=== PATIENT | female | born 1950 | race Caucasian/White ===

== ENCOUNTER → 2017-08-28 | Outpatient (CLI) | payer MEDICARE, MEDICAID ==
--- NOTE | 2017-08-28 17:57 | Diagnostic Imaging Report ---
PROCEDURE: Lung cancer screening CT chest without contrast. TECHNIQUE: Multiple contiguous axial images were obtained through the chest without the use of intravenous contrast. This is performed with a low-dose protocol. INDICATION: Currently asymptomatic patient with 60 pack years history of smoking Comparison: 08/22/2016 Findings: Again seen, there is scarring in the right middle lobe. There is minimal groundglass opacity in the right lung apex which is probably related to atelectasis or pneumonitis. A central somewhat nodular density in the middle of this area is measuring 9 mm. There is also mild atelectasis suggested in the lung bases bilaterally. There is a new nodule measuring 6 mm seen in the right middle lobe, axial image 36. The mediastinum demonstrates no mass or significantly enlarged nodes. The heart size is borderline. No axillary lymphadenopathy is seen. IMPRESSION: There are new groundglass opacities in the right lung apex with central 9 mm irregular nodule and a new right middle lobe nodule measuring 6 mm. These are favored to be benign. Followup study in six months is recommended to reevaluate. Lung Rads Category : 3. Likely benign. Recommendations: 6 months followup low-dose CT scan. Dictated by: Dictated on workstation # [id number]
== END ==
LOC: RAD 11:13
PROVIDERS: ATTEND Nurse Practitioner Family
DX: R91.8 Other nonspecific abnormal finding of lung field (principal); J44.9 Chronic obstructive pulmonary disease, unspecified; F17.210 Nicotine dependence, cigarettes, uncomplicated

== ENCOUNTER → 2017-09-12 | Outpatient (CLI) | payer MEDICARE, MEDICAID | LOC: CARD 12:41 | PROVIDERS: ATTEND Internal Medicine Cardiovascular Disease | DX: R00.2 Palpitations (principal); I10 Essential (primary) hypertension; R94.31 Abnormal electrocardiogram [ECG] [EKG] | CPT/HCPCS: 93225; 93226 ==

== ENCOUNTER → 2017-09-12 | Outpatient (CLI) | payer MEDICARE, MEDICAID | LOC: CARD 12:37 | PROVIDERS: ATTEND Internal Medicine Cardiovascular Disease | DX: R00.2 Palpitations (principal); I10 Essential (primary) hypertension; R94.31 Abnormal electrocardiogram [ECG] [EKG] | CPT/HCPCS: 93306 ==

== ENCOUNTER → 2018-06-28 | Outpatient (CLI) | payer MEDICARE, MEDICAID ==
--- NOTE | 2018-06-28 10:34 | Diagnostic Imaging Report ---
PROCEDURE: CT chest without contrast. TECHNIQUE: Multiple contiguous axial images were obtained through the chest without the use of intravenous contrast. INDICATION: Pulmonary nodules. Comparison is made to study of 01/30/2018. Unenhanced images reveal atherosclerotic calcification at the root of the aorta. Subcentimeter mediastinal lymph nodes have not significantly changed. There is also no significant change within the areas of chronic atelectasis and/or scarring involving the medial segment of the right middle lobe and the lingula. No defined mass or new infiltrate identified. There is no significant pleural or pericardial fluid. Gallbladder surgically absent. IMPRESSION: Stable chest CT with chronic atelectasis or scarring in the right middle lobe and lingula, showing no significant change. Dictated by: Dictated on workstation # [id number]
== END ==
LOC: RAD 09:49
PROVIDERS: ATTEND Nurse Practitioner Family
DX: J98.11 Atelectasis (principal); R91.8 Other nonspecific abnormal finding of lung field; J44.9 Chronic obstructive pulmonary disease, unspecified; Z72.0 Tobacco use
CPT/HCPCS: 71250

== ENCOUNTER 2018-11-18 17:44 | Inpatient (IN) | payer MEDICARE ==
[2018-11-18] VITALS (10 sets, daily range): BP systolic 155–187; BP diastolic 96–113
[~2018-11-18] VITALS: Ht 162.6 cm; Wt 116.1 kg
[2018-11-18] MEDS ORDERED: PROPOFOL DRIP (ICU) 100 ML IV SCH (19:45)
--- NOTE | 2018-11-18 19:55 | Progress Note ---
Standard Progress Note Progress Notes/Assess & Plan Date Seen by a Provider: Nov 18, 2018 Time Seen by a Provider: 19:44 Progress/Assessment & Plan Transfer acceptance note: (Patient not seen at this time.) Accepted patient in transfer from [facility] for acute respiratory failure. Presented to OSH for shortness of breath. Was to see her PCP over the last three days but did not keep appointment. Arrived to the ER in extremis with hypoxia on non rebreather. Trial of BiPAP was unsuccessful and hypercapnia worsened with BiPAP. CTA was attempted but she was unable to obtain this due to her girth. She was quickly intubated at OSH following CT scan. She received Rocephin and Azithromycin for abx coverage. She did not meet sepsis criteria. She was also given Bumex and a 1x therapeutic dose of Lovenox. She was transferred here for higher level care and ventilator management for acute hypoxic/hypercapnic respiratory failure. REBECCA FERNANDEZ MD Nov 18, 2018 19:55
[2018-11-18] MEDS ORDERED: NS IV 1000 ML 1,000 ML ONE (20:04)
--- OUTSIDE RECORDS SUMMARY | 2018-11-18 20:08 | XMS REPORT ---
Author Author BIANCA LIM Organization [facility] Address [address] [place] [address] Care Team Providers Care Religious Education Coordinator Name Role Phone BIANCA LIM Unavailable PROBLEMS Type Condition ICD9-CM Code KTE56-MK Code Onset Dates Condition Status SNOMED Code Problem Anxiety disorder, unspecified type F41.9 Active 197240382 Problem Bipolar I disorder, current or most recent episode depressed, in partial remission F31.75 Active 273506495 Problem Nicotine dependence, unspecified, uncomplicated F17.200 Active 82597216 Problem Anxiety disorder, unspecified F41.9 Active 440965580 Problem Borderline personality disorder F60.3 Active 02701650 Problem Bipolar II disorder in full remission F31.81 Active 83103518 ALLERGIES No Information ENCOUNTERS Encounter Location Date Diagnosis [facility] [id number] [place] [address] 79958- 3873 Jun, Bipolar I disorder, current or most recent episode depressed , in partial remission F31.75 and Anxiety disorder, unspecified type F41.9 [facility] [address], [place] [address] May, Bipolar I disorder, current or most recent episode depressed , in partial remission F31.75 ; Anxiety disorder, unspecified type F41.9 and Borderline personality disorder F60.3 [facility] [address], [place] [address] May, [facility] [id number] [place] [address] 59470- 2896 13 Apr, 2018 Bipolar I disorder, current or most recent episode depressed , in partial remission F31.75 ; Anxiety disorder, unspecified type F41.9 and Borderline personality disorder F60.3 [facility] [id number] [place] [address] 36051- 4354 Dec, Anxiety disorder, unspecified F41.9 ; Borderline personality disorder F60.3 and Bipolar II disorder in full remission F31.81 [facility] [id number] [place] [address] 48631- 7381 Nov, Bipolar I disorder, current or most recent episode depressed , in partial remission F31.75 ; Anxiety disorder, unspecified type F41.9 and Borderline personality disorder F60.3 [facility] [id number] [place] [address] 33603- 3596 Nov, Bipolar I disorder, current or most recent episode depressed , in partial remission F31.75 ; Anxiety disorder, unspecified type F41.9 and Borderline personality disorder F60.3 [facility] [id number] [place] [address] 04474- 8555 Nov, Anxiety disorder, unspecified F41.9 [facility] [id number] [place] [address] 76180- 8416 Nov, Bipolar I disorder, current or most recent episode depressed , in partial remission F31.75 ; Anxiety disorder, unspecified type F41.9 and Borderline personality disorder F60.3 [facility] [address] [place] [address] Nov, Bipolar II disorder in full remission F31.81 [facility] [id number] [place] [address] 86826- 6735 Oct, Anxiety disorder, unspecified F41.9 [facility] [id number] [place] [address] 71713- 7078 Sep, Anxiety disorder, unspecified F41.9 [facility] [id number] [place] [address] 33922- 8778 Sep, [facility] [id number] [place] [address] 03329- 9279 Aug, [facility] [id number] [place] [address] 56248- 0779 Aug, Anxiety disorder, unspecified F41.9 [facility] [address], [place] [address] 7853 Aug, [facility] [id number] [place] [address] 11738- 6248 Jul, Anxiety disorder, unspecified F41.9 ; Borderline personality disorder F60.3 and Bipolar II disorder in full remission F31.81 [facility] [id number] [place] [address] 64007- 8340 Jul, Borderline personality disorder F60.3 and Anxiety disorder, unspecified F41.9 [facility] [id number] [place] [address] 71637- 0123 Jul, [facility] [address] [place] [address] 33608- 5643 Jun, Bipolar I disorder, current or most recent episode depressed , in partial remission F31.75 ; Anxiety disorder, unspecified type F41.9 and Borderline personality disorder F60.3 [facility] [address], [place] [address] 7074 Jun, Anxiety disorder, unspecified F41.9 [facility] [address] [place] [address] 51809- 8528 May, Bipolar I disorder, current or most recent episode depressed , in partial remission F31.75 ; Anxiety disorder, unspecified type F41.9 and Borderline personality disorder F60.3 [facility] [address], [place] [address] 5004 May, [facility] [address], [place] [address] 9106 May, Anxiety disorder, unspecified F41.9 ; Borderline personality disorder F60.3 and Bipolar II disorder in full remission F31.81 [facility] [address], [place] [address] 2266 Apr, Anxiety disorder, unspecified F41.9 [facility] [address], [place] [address] 8473 Apr, Anxiety disorder, unspecified F41.9 [facility] [id number] [place] [address] 23494- 9726 Mar, Anxiety disorder, unspecified F41.9 ; Borderline personality disorder F60.3 and Bipolar II disorder in full remission F31.81 [facility] [id number] [place] [address] 68578- 4860 Dec, Anxiety disorder, unspecified F41.9 [facility] [address] [place] [address] 10816- 8749 Nov, Anxiety disorder, unspecified F41.9 [facility] [id number] [place] [address] 87111- 0527 Nov, Anxiety disorder, unspecified F41.9 ; Nicotine dependence, unspecified, uncomplicated F17.200 ; Borderline personality disorder F60.3 and Bipolar II disorder in full remission F31.81 [place] [address] [place] [address] 79967- 6538 Nov, [facility] [id number] [place] [address] 20296- 7869 Oct, Anxiety disorder, unspecified F41.9 [facility] [address] [place] [address] 65781- 2898 Jul, [facility] [id number] [place] [address] 93971- 6050 Jul, Anxiety disorder, unspecified F41.9 ; Nicotine dependence, unspecified, uncomplicated F17.200 ; Borderline personality disorder F60.3 and Bipolar II disorder in full remission F31.81 [facility] [address], [place] [address] 2899 Jun, [place] [address] [place] [address]- 9679 Jun, Anxiety disorder, unspecified F41.9 ; Nicotine dependence, unspecified, uncomplicated F17.200 ; Borderline personality disorder F60.3 and Bipolar II disorder in full remission F31.81 [facility] [id number] [place] [address] 50386- 2201 May, Bipolar 2 disorder F31.81 ; Anxiety disorder, unspecified F41.9 and Nicotine dependence, unspecified, uncomplicated F17.200 [place] [id number] [place] [address] 77524- 5986 Apr, [facility] [id number] [place] [address] 37120- 5709 Apr, Bipolar 2 disorder F31.81 ; Anxiety disorder, unspecified F41.9 and Nicotine dependence, unspecified, uncomplicated F17.200 [facility] [id number] [place] [address] 78295- 2717 Apr, Bipolar 2 disorder F31.81 ; Anxiety disorder, unspecified F41.9 and Nicotine dependence, unspecified, uncomplicated F17.200 [place] [id number] [place] [address] 39147- 5479 Mar, [place] [id number] [place] [address] 94103- 8117 January, [facility] [id number] [place] [address] 58341- 0091 Dec, Bipolar II disorder F31.81 [facility] [id number] [place] [address] 21663- 1151 Dec, [place] [place] [address] [place] [address] 27670- 1458 Nov, Bipolar 2 disorder F31.81 and Anxiety disorder, unspecified F41.9 [facility] [id number] [place] [address] 13259- 1027 Nov, Bipolar 2 disorder F31.81 and Anxiety disorder, unspecified F41.9 [place] [id number] [place] [address] 57661- 9026 Nov, [facility] [address], [place] [address]- 2424 Nov, [facility] [address], [place] [address]- 0956 Nov, Bipolar 2 disorder F31.81 and Anxiety disorder, unspecified F41.9 [facility] [address], [place] [address]- 7578 Nov, Bipolar 2 disorder F31.81 [facility] [address], [place] [address]- 5306 Nov, [facility] [address] [place] [address] 66934- 5666 Nov, [facility] [address], [place] [address]- 3555 Oct, [facility] [address], [place] [address]- 7135 Oct, [facility] [address] [place] [address] 56121- 7489 Oct, [facility] [address], [place] [address]- 9509 Oct, Bipolar 2 disorder F31.81 [facility] [address] [address]- 4152 Sep, [facility] [address], [place] [address]- 2541 Sep, [facility] [address] 7515 Jul, Bipolar 2 disorder F31.81 [facility] [address], [place] [address]- 4696 Jun, [facility] [address] 6309 Jun, Bipolar 2 disorder 296.89 [facility] [id number] [address]- 7516 Jun, [facility] [address], [place] [address]- 3116 May, [facility] [address], [place] [address]- 7247 Apr, Bipolar 2 disorder 296.89 [facility] [address] [place] [address] 93838- 3941 Apr, Bipolar 2 disorder 296.89 and Tobacco use disorder 305.1 [facility] [address] [place] [address] 59520- 9088 Mar, Bipolar II disorder 296.89 and Nicotine dependence 305.1 [facility] [address], [place] [address]- 1874 January, [facility] [address] [place] [address]- 7491 Dec, [facility] [address], [place] [address]- 8057 Dec, [facility] [address] [place] [address]- 8019 Nov, [facility] [address] [place] [address]- 1229 Nov, [facility] [address], [place] [address]- 6928 Oct, [facility] [address], [place] [address]- 4449 Oct, [facility] [address], [place] [address]- 0280 Sep, [facility] [address], [place] [address]- 0346 Sep, [facility] [address] [place] [address]- 7397 Sep, [facility] [place] [facility] [address] [id number] [place] [address]- 1143 Sep, [facility] [place] [facility] [address] [id number] [place] 6813 18 Sep, 2014 [facility] [place] [facility] [address] [id number] [place] [address]- 6155 18 Sep, 2014 [facility] [place] [facility] [address] [id number] [place] [address]- 1034 17 Sep, 2014 [facility] [place] [facility] [address] [id number] [place] [address]- 3541 Sep, [facility] [place] [facility] [address] [id number] [place] [address]- 4658 Sep, [facility] [place] [facility] [address] [id number] [place] [address]- 2829 Aug, [facility] [place] [facility] [address] [id number] [place] [address]- 3514 Aug, [facility] [place] [facility] [address] [id number] [place] [address]- 5639 Aug, [facility] [place] [facility] [address] [id number] [place] [address]- 6710 Aug, [facility] [place] [facility] [address] [id number] [place] [address]- 5769 24 Jul, 2014 [facility] [place] [facility] [address] [id number] [place] [address]- 2769 24 Jul, 2014 [facility] [place] [facility] [address] [id number] [place] [address]- 7138 16 Jun, 2014 [facility] [place] [facility] [address] [id number] [place] [address]- 4591 16 Jun, 2014 [facility] [place] [facility] [address] [id number] [place] 5822 Jun, [facility] [place] [facility] [address] [id number] [place] [address]- 3083 Jun, [facility] [place] [facility] [address] [id number] [place] [address]- 1135 Jun, [facility] [place] [facility] [address] [id number] [place] [address]- 9845 May, [facility] [place] [facility] [address] [id number] [place] [address]- 6841 May, [facility] [place] [facility] [address] [id number] [place] [address]- 2118 Apr, [facility] [place] [facility] [address] [id number] [place] [address]- 6787 Apr, [facility] [place] [facility] [address] [id number] [place] [address]- 4910 Mar, [facility] [place] [facility] [address] [id number] [place] [address]- 9394 Mar, [facility] [place] [facility] [address] [id number] [place] [address]- 1474 January, [facility] [place] [facility] [address] [id number] [place] [address]- 5571 January, [facility] [place] [facility] [address] [id number] [place] [address]- 0524 Dec, [facility] [place] [facility] [address] [id number] [place] [address]- 0449 Dec, [facility] [place] [facility] [address] [id number] [place] [address]- 8795 Dec, [facility] [place] [facility] [address] [id number] [place] [address]- 4698 Dec, [facility] [place] [facility] [address] [id number] [place] [address]- 1245 Dec, [facility] [place] [facility] [address] [id number], [place] [address]- 1340 Dec, [facility] [place] [facility] [address] [id number] [place] [address]- 0316 Nov, [facility] [place] [facility] [address] [id number] [place] [address]- 2138 Nov, [facility] [place] [facility] [address] [facility] [id number] [place] [address]- 7999 Nov, [facility] [place] [facility] [address] [id number] [place] [address]- 4334 Nov, [facility] [place] [facility] [address] [id number] [place] [address]- 9052 Nov, [facility] [place] [facility] [address] [facility] [id number] [place] [address]- 6438 Nov, [facility] [place] [facility] [address] [facility] [id number] [place] [address]- 2824 Nov, [facility] [place] [facility] [address] [facility] [id number] [place] [address]- 2871 Nov, [facility] [place] [facility] [address] [facility] [id number] [place] [address]- 0163 Oct, [facility] [place] [facility] [address] [facility] [id number] [place] [address]- 6774 Oct, [facility] [place] [facility] [address] [facility] [id number] [place] [address]- 1252 Aug, [facility] [place] [facility] [address] [facility] [id number], [place] [address]- 2229 Aug, [facility] [place] [facility] [address] [id number] [place] [address]- 5189 Aug, [facility] [place] [facility] [address] [facility] [id number] [place] [address]- 9942 Aug, [facility] [place] [facility] [address] [facility] [id number], [place] [address]- 1098 Jul, [facility] [place] [facility] [address] [id number] [place] [address]- 2546 Jun, [facility] [address] [id number] [place] [address]- 0376 Apr, [facility] [place] [facility] [address] [id number] [place] [address]- 2546 Apr, [facility] [place] [facility] [address] [id number] [place] [address]- 3925 Mar, [facility] [place] [facility] [address] [id number] [place] [address]- 8354 Nov, [facility] [place] [facility] [address] [id number] [place] [address]- 6936 Nov, [facility] [address] [id number] [place] [address]- 3430 Nov, [facility] [address] [id number] [place] [address]- 2702 Nov, [facility] [address] [id number] [place] [address]- 8807 Oct, [facility] [address] [id number] [place] [address]- 5216 Oct, [facility] [address] [id number] [place] [address]- 9293 Oct, [facility] [place] [facility] [address] [id number] [place] [address]- 2546 Sep, [facility] [place] [facility] [address] [id number] [place] [address]- 2548 Sep, [facility] [place] [facility] [address] [id number] [place] [address]- 2546 Aug, [facility] [place] [facility] [address] [id number] [place] [address]- 2546 Aug, [facility] [place] [facility] [address] [id number] [place] [address]- 7507 Jun, [facility] [place] [facility] [address] [id number] [place] [address]- 8418 Apr, [facility] [place] [facility] [address] [id number] [place] [address]- 1526 Apr, [facility] [place] [facility] [address] [id number] [place] [address] 2546 Mar, [facility] [place] [facility] [address] [id number] [place] [address]- 0939 Mar, [facility] [place] [facility] [address] [id number] [place] [address]- 2688 January, [facility] [place] [facility] [address] [id number] [place] [address]- 5026 January, [facility] [place] [facility] [address] [id number] [place] [address]- 5658 Dec, [facility] [place] [facility] [address] [id number] [place] [address]- 5480 Nov, [facility] [place] [facility] [address] [id number] [place] [address]- 1597 Nov, [facility] [place] [facility] [address] [id number] [place] [address]- 5470 Oct, [facility] [place] [facility] [address] [id number] [place] [address]- 8973 Oct, [facility] [place] [facility] [address] [id number] [place] [address] Sep, [facility] [place] [facility] [address] [id number] [place] [address] Aug, [facility] [place] [facility] [address] [id number] [place] [address] Aug, [facility] [place] [facility] [address] [id number] [place] [address] Aug, [facility] [place] [facility] [address] [facility] [id number] [place] [address] Aug, [facility] [address] [facility] [id number], [place] [address] Aug, [facility] [address] [id number], [place] [address] Jul, [facility] [address] [facility] [id number], [place] [address] Jul, [facility] [address] [facility] [id number], [place] [address] Aug, IMMUNIZATIONS No Known Immunizations SOCIAL HISTORY Never Assessed REASON FOR VISIT f/u PLAN OF CARE Activity Details Follow Up prn Reason: VITAL SIGNS MEDICATIONS Unknown Medications RESULTS No Results PROCEDURES Procedure Date Ordered Result Body Site REPLACED BY [facility] VIS[facility] MENTAL HEALTH ESTAB PT Jun 13, 2018 Psychotherapy, patient &/family, 30 minutes, established patient Jun 13, 2018 INSTRUCTIONS MEDICATIONS ADMINISTERED No Known Medications MEDICAL (GENERAL) HISTORY Type Description Date Medical History chronic pain Medical History hypothyroidism Medical History HTN Medical History GERD Medical History DM type 2 non insulin dependant Medical History COPD
--- OUTSIDE RECORDS SUMMARY | 2018-11-18 20:08 | XMS REPORT ---
Author Author BERNARD PATRICIA [facility] [address] Address [address] [place] [address] Care Team Providers Care Industrial Ecology Technician Name Role Phone JOAN PATRICIAAGUS Unavailable PROBLEMS Type Condition ICD9-CM Code [id number] Code Onset Dates Condition Status SNOMED Code Problem Anxiety disorder, unspecified type F41.9 Active 905150132 Problem Bipolar I disorder, current or most recent episode depressed, in partial remission F31.75 Active 430054761 Problem Nicotine dependence, unspecified, uncomplicated F17.200 Active 30766696 Problem Anxiety disorder, unspecified F41.9 Active 340456759 Problem Borderline personality disorder F60.3 Active 41786033 Problem Bipolar II disorder in full remission F31.81 Active 11433078 ALLERGIES No Information ENCOUNTERS Encounter Location Date Diagnosis [facility] [id number] [place] [address] 82971- 8815 Jun, Bipolar I disorder, current or most recent episode depressed , in partial remission F31.75 and Anxiety disorder, unspecified type F41.9 [facility] [id number] [place] [address] 83360- 8055 May, Bipolar I disorder, current or most recent episode depressed , in partial remission F31.75 ; Anxiety disorder, unspecified type F41.9 and Borderline personality disorder F60.3 [facility] [address] [address] May, [facility] [id number] [place] [address] 37126- 6807 Apr, Bipolar I disorder, current or most recent episode depressed , in partial remission F31.75 ; Anxiety disorder, unspecified type F41.9 and Borderline personality disorder F60.3 [facility] [id number] [place] [address] 78131- 7574 Dec, Anxiety disorder, unspecified F41.9 ; Borderline personality disorder F60.3 and Bipolar II disorder in full remission F31.81 [facility] [id number] [place] [address] 11387- 7822 Nov, Bipolar I disorder, current or most recent episode depressed , in partial remission F31.75 ; Anxiety disorder, unspecified type F41.9 and Borderline personality disorder F60.3 [facility] [id number] [place] [address] 30557- 6733 Nov, Bipolar I disorder, current or most recent episode depressed , in partial remission F31.75 ; Anxiety disorder, unspecified type F41.9 and Borderline personality disorder F60.3 [facility] [id number] [place] [address] 77982- 3569 Nov, Anxiety disorder, unspecified F41.9 [facility] [id number] [place] [address] 57570- 0704 Nov, Bipolar I disorder, current or most recent episode depressed , in partial remission F31.75 ; Anxiety disorder, unspecified type F41.9 and Borderline personality disorder F60.3 [facility] [address] [place] [address] Nov, Bipolar II disorder in full remission F31.81 [facility] [id number] [place] [address] 83135- 8054 Oct, Anxiety disorder, unspecified F41.9 [facility] [id number] [place] [address] 88400- 1161 Sep, Anxiety disorder, unspecified F41.9 [facility] [id number] [place] [address] 23149- 5553 Sep, [facility] [id number] [place] [address] 75019- 1261 Aug, [facility] [id number] [place] [address] 96214- 6910 Aug, Anxiety disorder, unspecified F41.9 [facility] [address] [address] Aug, [facility] [id number] [place] [address] 64153- 6726 Jul, Anxiety disorder, unspecified F41.9 ; Borderline personality disorder F60.3 and Bipolar II disorder in full remission F31.81 [facility] [address] [address] 2595 Jul, Borderline personality disorder F60.3 and Anxiety disorder, unspecified F41.9 [facility] [address] [address] 7906 Jul, [facility] [id number] [place] [address] 73668- 1702 Jun, Bipolar I disorder, current or most recent episode depressed , in partial remission F31.75 ; Anxiety disorder, unspecified type F41.9 and Borderline personality disorder F60.3 [facility] [address] [address] 8775 Jun, Anxiety disorder, unspecified F41.9 [facility] [address] [address] 8233 May, Bipolar I disorder, current or most recent episode depressed , in partial remission F31.75 ; Anxiety disorder, unspecified type F41.9 and Borderline personality disorder F60.3 [facility] [address] [address] 2414 May, [facility] [address] [address]- 3249 May, Anxiety disorder, unspecified F41.9 ; Borderline personality disorder F60.3 and Bipolar II disorder in full remission F31.81 [facility] [address] [address]- 8678 Apr, Anxiety disorder, unspecified F41.9 [facility] [address], [place] [address]- 6668 Apr, Anxiety disorder, unspecified F41.9 [facility] [id number] [place] [address] 53547- 7586 Mar, Anxiety disorder, unspecified F41.9 ; Borderline personality disorder F60.3 and Bipolar II disorder in full remission F31.81 [facility] [id number] [place] [address] 07177- 2305 Dec, Anxiety disorder, unspecified F41.9 [facility] [id number] [place] [address] 65115- 6896 Nov, Anxiety disorder, unspecified F41.9 [facility] [id number] [place] [address] 47264- 9611 Nov, Anxiety disorder, unspecified F41.9 ; Nicotine dependence, unspecified, uncomplicated F17.200 ; Borderline personality disorder F60.3 and Bipolar II disorder in full remission F31.81 [facility] [id number] [place] [address] 40384- 3378 Nov, [facility] [id number] [place] [address] 12813- 0534 Oct, Anxiety disorder, unspecified F41.9 [facility] [id number] [place] [address] 48778- 5246 Jul, [facility] [id number] [place] [address] 46014- 1748 Jul, Anxiety disorder, unspecified F41.9 ; Nicotine dependence, unspecified, uncomplicated F17.200 ; Borderline personality disorder F60.3 and Bipolar II disorder in full remission F31.81 [facility] [address] [address]- 6296 Jun, [facility] [id number] [place] [address] 37927- 5703 Jun, Anxiety disorder, unspecified F41.9 ; Nicotine dependence, unspecified, uncomplicated F17.200 ; Borderline personality disorder F60.3 and Bipolar II disorder in full remission F31.81 [facility] [id number] [place] [address] 29624- 0988 May, Bipolar 2 disorder F31.81 ; Anxiety disorder, unspecified F41.9 and Nicotine dependence, unspecified, uncomplicated F17.200 [facility] [id number] [place] [address] 67392- 9898 Apr, [facility] [id number] [place] [address] 00532- 3355 Apr, Bipolar 2 disorder F31.81 ; Anxiety disorder, unspecified F41.9 and Nicotine dependence, unspecified, uncomplicated F17.200 [facility] [id number] [place] [address] 17209- 3188 Apr, Bipolar 2 disorder F31.81 ; Anxiety disorder, unspecified F41.9 and Nicotine dependence, unspecified, uncomplicated F17.200 [facility] [id number] [place] [address] 91662- 5318 Mar, [facility] [id number] [place] [address] 05579- 7890 January, [facility] [id number] [place] [address] 16178- 3927 Dec, Bipolar II disorder F31.81 [facility] [id number] [place] [address] 57116- 6265 Dec, [facility] [id number] [place] [address] 54402- 9311 Nov, Bipolar 2 disorder F31.81 and Anxiety disorder, unspecified F41.9 [facility] [id number] [place] [address] 81131- 5165 Nov, Bipolar 2 disorder F31.81 and Anxiety disorder, unspecified F41.9 [facility] [id number] [address]- 7988 Nov, [facility] [address] [address]- 6154 Nov, [facility] [address] [address]- 1299 Nov, Bipolar 2 disorder F31.81 and Anxiety disorder, unspecified F41.9 [facility] [address] [address]- 0816 Nov, Bipolar 2 disorder F31.81 [facility] [address] [place] [address]- 6636 Nov, [facility] [id number] [place] [address] 439621- 9131 Nov, [facility] [address] [place] [address] 26515- 8066 Oct, [facility] [address] [address]- 2977 Oct, [facility] [address] [place] [address] 74847- 3657 Oct, [facility] [address] [address]- 7464 Oct, Bipolar 2 disorder F31.81 [facility] [address] [address]- 7736 Sep, [facility] [address] [address]- 2547 Sep, [facility] [address] 0996 Jul, Bipolar 2 disorder F31.81 [facility] [address] [address]- 2857 Jun, [facility] [address] [address]- 0277 Jun, Bipolar 2 disorder 296.89 [facility] [address] [address]- 6386 Jun, [facility] [address] [address]- 6664 May, [facility] [address] 0714 Apr, Bipolar 2 disorder 296.89 [facility] [address] [place] [address] 00150- 3952 Apr, Bipolar 2 disorder 296.89 and Tobacco use disorder 305.1 [facility] [id number] [place] [address] 622547- 6799 Mar, Bipolar II disorder 296.89 and Nicotine dependence 305.1 [facility] [address] [place] [address] 07908- 9098 January, [facility] [id number] [address]- 7383 Dec, [facility] [id number] [place] [address] 31160- 0910 Dec, [facility] [address] [address]- 0166 Nov, [facility] [address] [address]- 8087 Nov, [facility] [address] [address]- 3843 Oct, [facility] [address]- 7783 Oct, [facility] [address] 7723 Sep, [facility] [address] 3980 Sep, [facility] [place] [facility] [address] [id number] [place] 1568 Sep, [facility] [place] [facility] [address] [id number] [place] 1405 Sep, [facility] [place] [facility] [address] [id number] [place] 1662 18 Sep, 2014 [facility] [place] [facility] [address] [id number] [place] 5190 18 Sep, 2014 [facility] [place] [facility] [address] [id number] [place] 7776 17 Sep, 2014 [facility] [place] [facility] [address] [id number] [place] 6562 Sep, [facility] [place] [facility] [address] [id number] [place] 6762 Sep, [facility] [place] [facility] [address] [id number] [place] [address]- 4804 Aug, [facility] [place] [facility] [address] [id number] [place] [address]- 5483 Aug, [facility] [place] [facility] [address] [id number] [place] [address]- 4625 Aug, [facility] [place] [facility] [address] [id number] [place] [address]- 6357 Aug, [facility] [place] [facility] [address] [id number] [place] [address]- 3706 24 Jul, 2014 [facility] [place] [facility] [address] [id number] [place] [address]- 3573 24 Jul, 2014 [facility] [place] [facility] [address] [id number] [place] [address]- 5939 16 Jun, 2014 [facility] [place] [facility] [address] [id number] [place] [address]- 4829 16 Jun, 2014 [facility] [place] [facility] [address] [id number] [place] [address]- 1001 Jun, [facility] [place] [facility] [address] [id number] [place] [address]- 0003 Jun, [facility] [place] [facility] [address] [id number] [place] [address]- 7682 Jun, [facility] [place] [facility] [address] [id number] [place] [address]- 0943 May, [facility] [place] [facility] [address] [id number] [place] [address]- 8550 May, [facility] [place] [facility] [address] [id number] [place] [address]- 4056 Apr, [facility] [place] [facility] [address] [id number] [place] [address]- 3628 Apr, [facility] [place] [facility] [address] [id number] [place] [address]- 2862 Mar, [facility] [place] [facility] [address] [id number] [place] [address]- 8341 Mar, [facility] [place] [facility] [address] [id number] [place] [address]- 8997 January, [facility] [place] [facility] [address] [id number] [place] [address]- 2212 January, [facility] [place] [facility] [address] [id number] [place] [address]- 5284 Dec, [facility] [place] [facility] [address] [id number] [place] [address]- 1839 Dec, [facility] [place] [facility] [address] [id number] [place] [address]- 7054 Dec, [facility] [place] [facility] [address] [id number] [place] [address]- 9468 Dec, [facility] [place] [facility] [address] [id number] [place] [address]- 6360 Dec, [facility] [place] [facility] [address] [id number] [place] [address]- 3010 Dec, [facility] [place] [facility] [address] [id number] [place] [address]- 8656 Nov, [facility] [place] [facility] [address] [id number] [place] [address]- 4181 Nov, [facility] [place] [facility] [address] [id number] [place] [address]- 2507 Nov, [facility] [place] [facility] [address] [id number] [place] [address]- 5730 Nov, [facility] [place] [facility] [address] [id number] [place] 6721 Nov, [facility] [place] [facility] [address] [id number] [place] [address]- 3071 Nov, [facility] [place] [facility] [address] [id number] [place] [address]- 7054 Nov, [facility] [place] [facility] [address] [id number] [place] [address]- 6336 Nov, [facility] [place] [facility] [address] [id number] [place] [address]- 2834 Oct, [facility] [place] [facility] [address] [facility] [id number] [place] [address]- 6468 Oct, [facility] [place] [facility] [address] [id number] [place] [address]- 6858 Aug, [facility] [place] [facility] [address] [id number] [place] [address]- 5653 Aug, [facility] [place] [facility] [address] [id number] [place] [address]- 5053 Aug, [facility] [place] [facility] [address] [id number] [place] [address]- 3553 Aug, [facility] [place] [facility] [address] [id number] [place] [address]- 1868 Jul, [facility] [place] [facility] [address] [id number] [place] [address] 2546 Jun, [facility] [place] [facility] [address] [id number] [place] [address]- 2546 Apr, [facility] [place] [facility] [address] [id number] [place] [address]- 2546 Apr, [facility] [place] [facility] [address] [id number] [place] [address] 2546 Mar, [facility] [address] [id number] [place] [address] 2548 Nov, [facility] [place] [facility] [address] [id number] [place] [address]- 2546 Nov, [facility] [address] [id number] [place] [address] 2540 Nov, [facility] [place] [facility] [address] [id number] [place] [address]- 8551 Nov, [facility] [place] [facility] [address] [id number] [place] [address]- 3473 Oct, [facility] [address] [facility] [id number], [place] [address]- 8766 Oct, [facility] [place] [facility] [address] [id number], [place] [address]- 2546 Oct, [facility] [place] [facility] [address] [id number], [place] [address]- 2546 Sep, [facility] [place] [facility] [address] [id number] [place] [address]- 2546 Sep, [facility] [place] [facility] [address] [id number], [place] [address]- 2546 Aug, [facility] [place] [facility] [address] [id number], [place] [address]- 2546 Aug, [facility] [place] [facility] [address] [id number], [place] [address]- 9332 Jun, [facility] [address] [id number] [place] [address]- 4174 Apr, [facility] [place] [facility] [address] [id number] [place] [address]- 5526 Apr, [facility] [place] [facility] [address] [id number] [place] [address]- 7796 Mar, [facility] [place] [facility] [address] [id number] [place] [address]- 5228 Mar, [facility] [place] [facility] [address] [id number] [place] [address]- 3605 January, [facility] [place] [facility] [address] [id number] [place] [address]- 8836 January, [facility] [id number] [place] [address]- 5802 Dec, [facility] [place] [facility] [address] [id number] [place] [address]- 3078 Nov, [facility] [place] [facility] [address] [id number] [place] [address]- 5591 Nov, [facility] [place] [facility] [id number] [place] [address]- 4567 Oct, [facility] [place] [facility] [address] [id number] [place] [address]- 2768 Oct, [facility] [place] [facility] [address] [id number] [place] [address]- 5444 Sep, [facility] [place] [facility] [address] [id number] [place] [address]- 6407 Aug, [facility] [place] [facility] [address] [facility] [id number] [place] [address] 2544 Aug, [facility] [place] [facility] [address] [facility] [id number] [place] [address]- 1716 Aug, [facility] [place] [facility] [address] [facility] [id number] [place] [address]- 3782 Aug, [facility] [address] [facility] [id number], [place] [address]- 7468 Aug, [facility] [address] [facility] [id number], [place] [address]- 7465 Jul, [facility] [address] [facility] [id number], [place] [address]- 8728 Jul, [facility] [address] [facility] [id number], [place] [address]- 5960 Aug, IMMUNIZATIONS No Known Immunizations SOCIAL HISTORY Never Assessed REASON FOR VISIT oswaldo PLAN OF CARE VITAL SIGNS MEDICATIONS Unknown Medications RESULTS No Results PROCEDURES No Known procedures INSTRUCTIONS MEDICATIONS ADMINISTERED No Known Medications MEDICAL (GENERAL) HISTORY Type Description Date Medical History chronic pain Medical History hypothyroidism Medical History HTN Medical History GERD Medical History DM type 2 non insulin dependant Medical History COPD
--- OUTSIDE RECORDS SUMMARY | 2018-11-18 20:08 | XMS REPORT ---
Author Author BIANCA LIM Organization [facility] Address [address] [place] [address] Care Team Providers Care Edi Consultant Name Role Phone BIANCA LIM Unavailable PROBLEMS Type Condition ICD9-CM Code [id number] Code Onset Dates Condition Status SNOMED Code Problem Anxiety disorder, unspecified type F41.9 Active 813060939 Problem Bipolar I disorder, current or most recent episode depressed, in partial remission F31.75 Active 725223951 Problem Nicotine dependence, unspecified, uncomplicated F17.200 Active 69432675 Problem Anxiety disorder, unspecified F41.9 Active 891578139 Problem Borderline personality disorder F60.3 Active 99046624 Problem Bipolar II disorder in full remission F31.81 Active 52995242 ALLERGIES No Information ENCOUNTERS Encounter Location Date Diagnosis [facility] [id number] [place] [address] 04336- 8087 Jun, Bipolar I disorder, current or most recent episode depressed , in partial remission F31.75 and Anxiety disorder, unspecified type F41.9 [facility] [address] [address] May, Bipolar I disorder, current or most recent episode depressed , in partial remission F31.75 ; Anxiety disorder, unspecified type F41.9 and Borderline personality disorder F60.3 [facility] [address] [address] May, [facility] [id number] [place] [address] 03228- 5525 13 Apr, 2018 Bipolar I disorder, current or most recent episode depressed , in partial remission F31.75 ; Anxiety disorder, unspecified type F41.9 and Borderline personality disorder F60.3 [facility] [id number] [place] [address] 15302- 3281 Dec, Anxiety disorder, unspecified F41.9 ; Borderline personality disorder F60.3 and Bipolar II disorder in full remission F31.81 [facility] [id number] [place] [address] 51188- 0250 Nov, Bipolar I disorder, current or most recent episode depressed , in partial remission F31.75 ; Anxiety disorder, unspecified type F41.9 and Borderline personality disorder F60.3 [facility] [id number] [place] [address] 30351- 5506 Nov, Bipolar I disorder, current or most recent episode depressed , in partial remission F31.75 ; Anxiety disorder, unspecified type F41.9 and Borderline personality disorder F60.3 [facility] [facility] [id number] [place] [address] 05956- 1152 Nov, Anxiety disorder, unspecified F41.9 [facility] [facility] [id number] [place] [address] 77391- 6021 Nov, Bipolar I disorder, current or most recent episode depressed , in partial remission F31.75 ; Anxiety disorder, unspecified type F41.9 and Borderline personality disorder F60.[address] [facility] [address] [place] [address] Nov, Bipolar II disorder in full remission F31.81 [facility] [id number] [place] [address] 49208- 6790 Oct, Anxiety disorder, unspecified F41.9 [facility] [facility] [id number] [place] [address] 60346- 3153 Sep, Anxiety disorder, unspecified F41.9 [facility] [facility] [id number] [place] [address] 81769- 9786 Sep, [facility] [id number] [place] [address] 14627- 4892 Aug, [facility] [id number] [place] [address] 91235- 3662 Aug, Anxiety disorder, unspecified F41.9 [facility] [address] [address] 3[address] Aug, [facility] [address] [place] [address] 31980- 9612 Jul, Anxiety disorder, unspecified F41.9 ; Borderline personality disorder F60.3 and Bipolar II disorder in full remission F31.81 [facility] [id number] [place] [address] 65026- 1640 Jul, Borderline personality disorder F60.3 and Anxiety disorder, unspecified F41.9 [facility] [id number] [place] [address] 00568- 0271 Jul, [facility] [address] [place] [address] 97358- 3729 Jun, Bipolar I disorder, current or most recent episode depressed , in partial remission F31.75 ; Anxiety disorder, unspecified type F41.9 and Borderline personality disorder F60.3 [facility] [address] [address] Jun, Anxiety disorder, unspecified F41.9 [facility] [address] [place] [address] 66622- 7634 May, Bipolar I disorder, current or most recent episode depressed , in partial remission F31.75 ; Anxiety disorder, unspecified type F41.9 and Borderline personality disorder F60.3 [facility] [address] [address] 38[address] May, [facility] [address] [address] 6924 May, Anxiety disorder, unspecified F41.9 ; Borderline personality disorder F60.3 and Bipolar II disorder in full remission F31.81 [facility] [address], [place] [address] Apr, Anxiety disorder, unspecified F41.9 [facility] [address], [place] [address] 3841 Apr, Anxiety disorder, unspecified F41.9 [facility] [id number] [place] [address] 55436- 4496 Mar, Anxiety disorder, unspecified F41.9 ; Borderline personality disorder F60.3 and Bipolar II disorder in full remission F31.81 [place] [id number] [place] [address] 08632- 8102 Dec, Anxiety disorder, unspecified F41.9 [facility] [address] [place] [address] 25142- 8659 Nov, Anxiety disorder, unspecified F41.9 [facility] [id number] [place] [address] 73288- 5596 Nov, Anxiety disorder, unspecified F41.9 ; Nicotine dependence, unspecified, uncomplicated F17.200 ; Borderline personality disorder F60.3 and Bipolar II disorder in full remission F31.81 [place] [address] [place] [address] 39302- 4781 Nov, [facility] [id number] [place] [address] 05112- 2584 Oct, Anxiety disorder, unspecified F41.9 [facility] [facility] [address] [place] [address] 52378- 7291 Jul, [facility] [facility] [id number] [place] [address] 00437- 2622 Jul, Anxiety disorder, unspecified F41.9 ; Nicotine dependence, unspecified, uncomplicated F17.200 ; Borderline personality disorder F60.3 and Bipolar II disorder in full remission F31.81 [facility] [address] [address]- 4[address] Jun, [facility] [address] [address]- 6282 Jun, Anxiety disorder, unspecified F41.9 ; Nicotine dependence, unspecified, uncomplicated F17.200 ; Borderline personality disorder F60.3 and Bipolar II disorder in full remission F31.81 [facility] [id number] [place] [address] 32519- 4819 May, Bipolar 2 disorder F31.81 ; Anxiety disorder, unspecified F41.9 and Nicotine dependence, unspecified, uncomplicated F17.200 [place] [id number] [place] [address] 15164- 2996 Apr, [facility] [id number] [place] [address] 24418- 6468 Apr, Bipolar 2 disorder F31.81 ; Anxiety disorder, unspecified F41.9 and Nicotine dependence, unspecified, uncomplicated F17.200 [facility] [id number] [place] [address] 85966- 9594 Apr, Bipolar 2 disorder F31.81 ; Anxiety disorder, unspecified F41.9 and Nicotine dependence, unspecified, uncomplicated F17.200 [facility] [id number] [place] [address] 88375- 8673 Mar, [facility] [id number] [place] [address] 53753- 0528 January, [facility] [id number] [place] [address] 38499- 1021 Dec, Bipolar II disorder F31.81 [facility] [id number] [place] [address] 30778- 9170 Dec, [place] [address] [place] [address] 01613- 2794 Nov, Bipolar 2 disorder F31.81 and Anxiety disorder, unspecified F41.9 [facility] [id number] [place] [address] 05616- 2464 Nov, Bipolar 2 disorder F31.81 and Anxiety disorder, unspecified F41.9 [facility] [id number] [place] [address] 75216- 0458 Nov, [facility] [address] [address]- 4351 Nov, [facility] [address], [place] [address]- 5186 Nov, Bipolar 2 disorder F31.81 and Anxiety disorder, unspecified F41.9 [facility] [address], [place] [address]- 2536 Nov, Bipolar 2 disorder F31.81 [facility] [address], [place] [address]- 2206 Nov, [facility] [address] [place] [address] 80846- 8266 Nov, [facility] [address] [address]- 3434 Oct, [facility] [address] [address]- 3121 Oct, [facility] [address] [place] [address] 12757- 6461 Oct, [facility] [address] [address]- 2252 Oct, Bipolar 2 disorder F31.81 [facility] [address], [place] [address]- 7860 Sep, [facility] [address] [address]- 254 Sep, [facility] [address] 6864 Jul, Bipolar 2 disorder F31.81 [facility] [address], [place] [address]- 4886 Jun, [facility] [address] 0137 Jun, Bipolar 2 disorder 296.89 [facility] [id number] [address]- 1500 Jun, [facility] [address] [address]- 6526 May, [facility] [address] [address]- 0900 Apr, Bipolar 2 disorder 296.89 [facility] [address] [place] [address] 79910- 7872 Apr, Bipolar 2 disorder 296.89 and Tobacco use disorder 305.1 [facility] [address] [place] [address] 67383- 5521 Mar, Bipolar II disorder 296.89 and Nicotine dependence 305.1 [facility] [address], [place] [address]- 9308 January, [facility] [address] [address]- 1225 Dec, [facility] [address] [address]- 3827 Dec, [facility] [address] [address]- 6924 Nov, [facility] [address] [address]- 8608 Nov, [facility] [address], [place] [address]- 4770 Oct, [facility] [address], [place] [address]- 7794 Oct, [facility] [address] [address]- 1845 Sep, [facility] [address], [place] [address]- 3886 Sep, [facility] [address] [place] [address]- 7242 Sep, [facility] [place] [facility] [address] [id number] [place] [address]- 3246 Sep, [facility] [place] [facility] [address] [id number] [place] [address]79 18 Sep, 2014 [facility] [place] [facility] [address] [id number] [place] [address]- 9546 18 Sep, 2014 [facility] [place] [facility] [address] [id number] [place] [address]- 7800 17 Sep, 2014 [facility] [place] [facility] [address] [id number] [place] [address]- 8792 Sep, [facility] [place] [facility] [address] [id number] [place] [address]- 9230 Sep, [facility] [place] [facility] [address] [id number] [place] [address]- 9102 Aug, [facility] [place] [facility] [address] [id number] [place] [address]- 1904 Aug, [facility] [place] [facility] [address] [id number] [place] [address]- 3425 Aug, [facility] [place] [facility] [address] [id number] [place] [address]- 8190 Aug, [facility] [place] [facility] [address] [id number] [place] [address]- 8540 24 Jul, 2014 [facility] [place] [facility] [address] [id number] [place] [address]- 0951 24 Jul, 2014 [facility] [place] [facility] [address] [id number] [place] [address]- 7821 16 Jun, 2014 [facility] [place] [facility] [address] [id number] [place] [address]- 5815 16 Jun, 2014 [facility] [place] [facility] [address] [id number] [place] 1003 Jun, [facility] [place] [facility] [address] [id number] [place] [address]- 0826 Jun, [facility] [place] [facility] [address] [id number] [place] [address]- 3712 Jun, [facility] [place] [facility] [address] [id number] [place] [address]- 4984 May, [facility] [place] [facility] [address] [id number] [place] [address]- 9541 May, [facility] [place] [facility] [address] [id number] [place] [address]- 1261 Apr, [facility] [place] [facility] [address] [id number] [place] [address]- 0845 Apr, [facility] [place] [facility] [address] [id number] [place] [address]- 8021 Mar, [facility] [place] [facility] [address] [id number] [place] [address]- 1607 Mar, [facility] [place] [facility] [address] [id number] [place] [address]- 3797 January, [facility] [place] [facility] [address] [id number] [place] [address]- 4879 January, [facility] [place] [facility] [address] [id number] [place] [address]- 0014 Dec, [facility] [place] [facility] [address] [id number] [place] [address]- 4387 Dec, [facility] [place] [facility] [address] [id number] [place] [address]- 6463 Dec, [facility] [place] [facility] [address] [id number] [place] [address]- 2481 Dec, [facility] [place] [facility] [address] [id number] [place] [address]- 3534 Dec, [facility] [place] [facility] [address] [id number] [address]- 4552 Dec, [facility] [place] [facility] [address] [id number] [place] [address]- 1086 Nov, [facility] [place] [facility] [address] [id number] [place] [address]- 1008 Nov, [facility] [place] [facility] [address] [facility] [id number] [place] [address]- 0005 Nov, [facility] [place] [facility] [address] [id number] [place] [address]- 3144 Nov, [facility] [place] [facility] [address] [id number] [place] [address]- 6427 Nov, [facility] [place] [facility] [address] [facility] [id number] [place] [address]- 5169 Nov, [facility] [place] [facility] [address] [facility] [id number] [place] [address]- 6033 Nov, [facility] [place] [facility] [address] [facility] [id number] [place] [address]- 5826 Nov, [facility] [place] [facility] [address] [facility] [id number] [place] [address]- 8091 Oct, [facility] [place] [facility] [address] [facility] [id number] [place] [address]- 7209 Oct, [facility] [place] [facility] [address] [facility] [id number] [place] [address]- 6471 Aug, [facility] [place] [facility] [address] [facility] [id number], [place] [address]- 5188 Aug, [facility] [place] [facility] [address] [id number] [place] [address]- 9390 Aug, [facility] [place] [facility] [address] [facility] [id number] [place] [address]- 0669 Aug, [facility] [place] [facility] [address] [facility] [id number], [place] [address]- 6770 Jul, [facility] [place] [facility] [address] [id number] [place] [address]- 2546 Jun, [facility] [address] [id number] [place] [address]- 9225 Apr, [facility] [place] [facility] [address] [id number] [place] [address]- 2546 Apr, [facility] [place] [facility] [address] [id number] [place] [address]- 2928 Mar, [facility] [place] [facility] [address] [id number] [place] [address]- 7738 Nov, [facility] [place] [facility] [address] [id number] [place] [address]- 6346 Nov, [facility] [address] [id number] [place] [address]- 8824 Nov, [facility] [address] [id number] [place] [address]- 1284 Nov, [facility] [address] [id number] [place] [address]- 2126 Oct, [facility] [address] [id number] [place] [address]- 1375 Oct, [facility] [address] [id number] [place] [address]- 7983 Oct, [facility] [place] [facility] [address] [id number] [place] [address]- 2546 Sep, [facility] [place] [facility] [address] [id number] [place] [address]- 2541 Sep, [facility] [place] [facility] [address] [id number] [place] [address]- 2546 Aug, [facility] [place] [facility] [address] [id number] [place] [address]- 2546 Aug, [facility] [place] [facility] [address] [id number] [place] [address]- 1796 Jun, [facility] [place] [facility] [address] [id number] [place] [address]- 4927 Apr, [facility] [place] [facility] [address] [id number] [place] [address]- 6736 Apr, [facility] [place] [facility] [address] [id number] [place] [address] 2546 Mar, [facility] [place] [facility] [address] [id number] [place] [address]- 3048 Mar, [facility] [place] [facility] [address] [id number] [place] [address]- 1505 January, [facility] [place] [facility] [address] [id number] [place] [address]- 2166 January, [facility] [place] [facility] [address] [id number] [place] [address]- 0929 Dec, [facility] [place] [facility] [address] [id number] [place] [address]- 9494 Nov, [facility] [place] [facility] [address] [id number] [place] [address]- 3693 Nov, [facility] [place] [facility] [address] [id number] [place] [address]- 2224 Oct, [facility] [place] [facility] [address] [id number] [place] [address]- 9630 Oct, [facility] [place] [facility] [address] [id number] [place] [address]- 4974 Sep, [facility] [place] [facility] [address] [id number] [place] [address]- 4811 Aug, [facility] [place] [facility] [address] [id number] [place] [address]- 1196 Aug, [facility] [place] [facility] [address] [id number] [place] [address]- 2546 Aug, [facility] [place] [facility] [address] [facility] [id number] [place] [address]- 0526 Aug, [facility] [address] [facility] [id number], [place] [address]- 3605 Aug, [facility] [id number] [address]- 0442 Jul, [facility] [address] [facility] [id number], [place] [address]- 5029 Jul, [facility] [address] [facility] [id number], [place] [address]- 1599 Aug, IMMUNIZATIONS No Known Immunizations SOCIAL HISTORY Never Assessed REASON FOR VISIT f/u PLAN OF CARE Activity Details Follow Up 2 Weeks Reason:depression & anxiety VITAL SIGNS MEDICATIONS Unknown Medications RESULTS No Results PROCEDURES Procedure Date Ordered Result Body Site [facility] VISIT MENTAL HEALTH ESTAB PT May 11, 2018 Psychotherapy, patient &/family, 30 minutes, established patient May 11, 2018 INSTRUCTIONS MEDICATIONS ADMINISTERED No Known Medications MEDICAL (GENERAL) HISTORY Type Description Date Medical History chronic pain Medical History hypothyroidism Medical History HTN Medical History GERD Medical History DM type 2 non insulin dependant Medical History COPD
--- OUTSIDE RECORDS SUMMARY | 2018-11-18 20:09 | XMS REPORT ---
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 Name Role Phone JOAN PATRICIAAGUS Unavailable PROBLEMS Type Condition ICD9-CM Code UTK20-EP Code Onset Dates Condition Status SNOMED Code Problem Anxiety disorder, unspecified type F41.9 Active 592275299 Problem Bipolar I disorder, current or most recent episode depressed, in partial remission F31.75 Active 491818363 Problem Nicotine dependence, unspecified, uncomplicated F17.200 Active 20487402 Problem Anxiety disorder, unspecified F41.9 Active 895730034 Problem Borderline personality disorder F60.3 Active 81881934 Problem Bipolar II disorder in full remission F31.81 Active 59816502 ALLERGIES Substance Reaction Event Type Date Status Sulfacetamide Sodium Unknown Drug Allergy Dec, Active Penicillin V Potassium Unknown Drug Allergy Dec, Active Macrobid Unknown Drug Allergy Dec, Active Biaxin shortness of breath Drug Allergy Dec, Active Avelox shortness of breath Drug Allergy Dec, Active Desyrel halluinate Drug Allergy Dec, Active ENCOUNTERS Encounter Location Date Diagnosis [place] [id number], [place] [address] May, [place] [id number], [place] [address] Apr, Bipolar I disorder, current or most recent episode depressed , in partial remission F31.75 ; Anxiety disorder, unspecified type F41.9 and Borderline personality disorder F60.3 [place] [id number], [place] [address] Dec, Anxiety disorder, unspecified F41.9 ; Borderline personality disorder F60.3 and Bipolar II disorder in full remission F31.81 [place] [address], [place] [address] Nov, Bipolar I disorder, current or most recent episode depressed , in partial remission F31.75 ; Anxiety disorder, unspecified type F41.9 and Borderline personality disorder F60.3 [facility] [place] [facility] [id number] [place] [address] 15486- 3471 Nov, Bipolar I disorder, current or most recent episode depressed , in partial remission F31.75 ; Anxiety disorder, unspecified type F41.9 and Borderline personality disorder F60.3 [facility] [id number] [place] [address] 59367- 6424 Nov, Anxiety disorder, unspecified F41.9 [facility] [facility] [id number] [place] [address] 31043- 8914 Nov, Bipolar I disorder, current or most recent episode depressed , in partial remission F31.75 ; Anxiety disorder, unspecified type F41.9 and Borderline personality disorder F60.3 [facility] [address] [place] [address] Nov, Bipolar II disorder in full remission F31.81 [facility] [id number] [place] [address] 24233- 5777 Oct, Anxiety disorder, unspecified F41.9 [facility] [id number] [place] [address] 85035- 7703 Sep, Anxiety disorder, unspecified F41.9 [facility] [id number] [place] [address] 16719- 6536 Sep, [facility] [facility] [id number] [place] [address] 72104- 7654 Aug, [facility] [id number] [place] [address] 86259- 5719 Aug, Anxiety disorder, unspecified F41.9 [facility] [address], [place] [address] Aug, [facility] [facility] [id number], [place] [address] Jul, Anxiety disorder, unspecified F41.9 ; Borderline personality disorder F60.3 and Bipolar II disorder in full remission F31.81 [facility] [address], [place] [address] Jul, Borderline personality disorder F60.3 and Anxiety disorder, unspecified F41.9 [facility] [id number] [place] [address] 57383- 6777 Jul, [facility] [id number] [place] [address] 14063- 5486 Jun, Bipolar I disorder, current or most recent episode depressed , in partial remission F31.75 ; Anxiety disorder, unspecified type F41.9 and Borderline personality disorder F60.3 [place] [address] [address] Jun, Anxiety disorder, unspecified F41.9 [facility] [id number] [place] [address] 82107- 1665 May, Bipolar I disorder, current or most recent episode depressed , in partial remission F31.75 ; Anxiety disorder, unspecified type F41.9 and Borderline personality disorder F60.3 [place] [address], [place] [address] 285[address] May, [facility] [id number] [place] [address] 94523- 1589 May, Anxiety disorder, unspecified F41.9 ; Borderline personality disorder F60.3 and Bipolar II disorder in full remission F31.81 [facility] [id number] [place] [address] 85478- 2115 Apr, Anxiety disorder, unspecified F41.9 [facility] [address] [address] 7346 Apr, Anxiety disorder, unspecified F41.9 [facility] [id number] [place] [address] 38424- 3517 Mar, Anxiety disorder, unspecified F41.9 ; Borderline personality disorder F60.3 and Bipolar II disorder in full remission F31.81 [facility] [id number] [place] [address] 43965- 0903 Dec, Anxiety disorder, unspecified F41.9 [place] [id number] [place] [address] 02312- 6648 Nov, Anxiety disorder, unspecified F41.9 [place] [id number] [place] [address] 13842- 9323 Nov, Anxiety disorder, unspecified F41.9 ; Nicotine dependence, unspecified, uncomplicated F17.200 ; Borderline personality disorder F60.3 and Bipolar II disorder in full remission F31.81 [place] [id number] [place] [address] 51596- 3754 Nov, [place] [id number] [place] [address] 38790- 6486 Oct, Anxiety disorder, unspecified F41.9 [place] [id number] [place] [address] 38547- 6731 Jul, [place] [id number] [place] [address] 55486- 0544 Jul, Anxiety disorder, unspecified F41.9 ; Nicotine dependence, unspecified, uncomplicated F17.200 ; Borderline personality disorder F60.3 and Bipolar II disorder in full remission F31.81 [place] [address] [place] [address] 49911- 5723 Jun, [place] [id number] [place] [address] 88221- 8749 Jun, Anxiety disorder, unspecified F41.9 ; Nicotine dependence, unspecified, uncomplicated F17.200 ; Borderline personality disorder F60.3 and Bipolar II disorder in full remission F31.81 [place] [id number] [place] [address] 87265- 5237 May, Bipolar 2 disorder F31.81 ; Anxiety disorder, unspecified F41.9 and Nicotine dependence, unspecified, uncomplicated F17.200 [facility] [facility] [address] [address] 4479 Apr, [facility] [address] [address] 3887 Apr, Bipolar 2 disorder F31.81 ; Anxiety disorder, unspecified F41.9 and Nicotine dependence, unspecified, uncomplicated F17.200 [facility] [address], [place] [address] 3495 Apr, Bipolar 2 disorder F31.81 ; Anxiety disorder, unspecified F41.9 and Nicotine dependence, unspecified, uncomplicated F17.200 [facility] [address] [address]- 2427 Mar, [facility] [id number] [place] [address] 95852- 1866 January, [facility] [id number] [place] [address] 25099- 4078 Dec, Bipolar II disorder F31.81 [facility] [address] [address]- 2064 Dec, [facility] [address], [place] [address]- 9690 Nov, Bipolar 2 disorder F31.81 and Anxiety disorder, unspecified F41.9 [facility] [address] [address]- 4840 Nov, Bipolar 2 disorder F31.81 and Anxiety disorder, unspecified F41.9 [facility] [address], [place] [address]- 4370 Nov, [facility] [address], [place] [address]- 6389 Nov, [facility] [address] [place] [address]- 3060 Nov, Bipolar 2 disorder F31.81 and Anxiety disorder, unspecified F41.9 [facility] [address] [address]- 8186 Nov, Bipolar 2 disorder F31.81 [facility] [address] [address]- 3496 Nov, [facility] [id number] [address] 2546 Nov, [facility] [address] [place] [address], [place] [address]- 6749 Oct, [facility] [address] [address]- 5122 Oct, [facility] [address] [address]- 1370 Oct, [facility] [id number], [place] [address]- 2311 Oct, Bipolar 2 disorder F31.81 [facility] [address], [place] [address]- 6176 Sep, [facility] [address], [place] [address]- 3312 Sep, [facility] [address], [place] [address]- 3623 Jul, Bipolar 2 disorder F31.81 [facility] [id number] [address] 2546 Jun, [facility] [address], [place] [address]- 2546 Jun, Bipolar 2 disorder 296.89 [facility] [id number] [address]- 1046 16 Jun, 2015 [facility] [id number], [place] [address]- 7175 May, [facility] [id number] [place] [address] 61459- 5341 Apr, Bipolar 2 disorder 296.89 [facility] [address], [place] [address]- 1926 Apr, Bipolar 2 disorder 296.89 and Tobacco use disorder 305.1 [facility] [id number] [place] [address] 43424- 3486 Mar, Bipolar II disorder 296.89 and Nicotine dependence 305.1 [facility] [id number] [place] [address] 31744- 1904 January, [facility] [id number] [place] [address] 32095- 1755 Dec, [facility] [facility] [id number] [place] [address] 28184- 6917 Dec, [facility] [facility] [address], [place] [address]- 1429 Nov, [facility] [facility] [id number] [place] [address] 07974- 6398 Nov, [facility] [facility] [address], [place] [address]- 8200 Oct, [facility] [address], [place] [address]- 8923 Oct, [facility] [address], [place] [address]- 3760 Sep, [facility] [facility] [id number] [place] [address] 49622- 3794 Sep, [facility] [facility] [address] 8105 Sep, [facility] [facility] [address] 2914 Sep, [facility] [place] [facility] [address] [id number] [place] [address]- 6278 Sep, [facility] [place] [facility] [address] [id number] [place] [address]- 0820 18 Sep, 2014 [facility] [place] [facility] [address] [id number] [place] 5061 Sep, [facility] [place] [facility] [address] [id number] [place] [address]- 2194 Sep, [facility] [place] [facility] [address] [id number] [place] 8383 Sep, [facility] [place] [facility] [address] [id number] [place] [address]- 4178 Aug, [facility] [place] [facility] [address] [id number] [place] [address]- 9485 Aug, [facility] [place] [facility] [address] [id number] [place] [address]- 8292 Aug, [facility] [place] [facility] [address] [id number] [place] [address]- 3690 Aug, [facility] [place] [facility] [address] [id number], [place] [address]- 0448 Jul, [facility] [place] [facility] [address] [id number], [place] [address]- 1171 24 Jul, 2014 [facility] [place] [facility] [address] [id number], [place] [address]- 0901 16 Jun, 2014 [facility] [place] [facility] [address] [id number] [place] [address]- 3663 16 Jun, 2014 [facility] [place] [facility] [address] [id number] [place] [address]- 0400 11 Jun, 2014 [facility] [place] [facility] [address] [id number], [place] [address]- 0402 11 Jun, 2014 [facility] [place] [facility] [address] [id number], [place] [address]- 4547 Jun, [facility] [place] [facility] [address] [id number] [place] [address]- 2449 May, [facility] [place] [facility] [address] [id number] [place] [address]- 5299 May, [facility] [place] [facility] [address] [id number] [place] [address]- 6641 Apr, [facility] [place] [facility] [address] [id number] [place] [address]- 4999 Apr, [facility] [place] [facility] [address] [id number] [place] [address]- 1585 Mar, [facility] [place] [facility] [address] [id number] [place] [address]- 5099 Mar, [facility] [place] [facility] [address] [id number] [place] [address]- 6342 January, [facility] [place] [facility] [address] [id number] [place] [address]- 5921 January, [facility] [place] [facility] [address] [id number] [place] [address]- 3578 Dec, [facility] [place] [facility] [address] [id number] [place] [address]- 3699 Dec, [facility] [place] [facility] [address] [id number] [place] [address]- 6135 Dec, [facility] [place] [facility] [address] [id number] [place] [address]- 5241 Dec, [facility] [place] [facility] [address] [id number] [place] [address]- 0016 Dec, [facility] [place] [facility] [address] [id number] [place] [address]- 8439 Dec, [facility] [place] [facility] [address] [id number] [place] [address]- 6238 Nov, [facility] [place] [facility] [address] [id number] [place] [address]- 2560 Nov, [facility] [place] [facility] [address] [id number] [place] 8354 Nov, [facility] [place] [facility] [address] [id number] [place] [address]- 6884 Nov, [facility] [place] [facility] [address] [id number] [place] [address]- 8492 Nov, [facility] [place] [facility] [address] [id number] [place] [address]- 1993 Nov, [facility] [place] [facility] [address] [id number] [place] [address]- 8245 Nov, [facility] [place] [facility] [address] [id number] [place] [address]- 6635 Nov, [facility] [place] [facility] [address] [id number] [place] [address]- 1978 Oct, [facility] [place] [facility] [address] [id number] [place] [address]- 3045 Oct, [facility] [place] [facility] [address] [id number] [place] [address]- 1166 Aug, [facility] [place] [facility] [address] [id number] [place] [address]- 2519 Aug, [facility] [place] [facility] [address] [id number] [place] [address]- 3144 Aug, [facility] [place] [facility] [address] [id number] [place] [address]- 8361 Aug, [facility] [place] [facility] [address] [id number] [place] [address]- 7027 Jul, [facility] [place] [facility] [address] [id number] [place] [address]- 3439 06 Jun, 2013 [facility] [place] [facility] [address] [id number] [place] [address]- 6455 Apr, [facility] [address] [id number] [place] [address]- 9701 Apr, [facility] [place] [facility] [address] [id number] [place] [address]- 7486 Mar, [facility] [place] [facility] [address] [id number] [place] [address] 2546 Nov, [facility] [place] [facility] [address] [id number] [place] [address]- 2546 Nov, [facility] [place] [facility] [address] [id number] [place] [address]- 0961 Nov, [facility] [place] [facility] [address] [id number] [place] [address]- 4886 Nov, [facility] [place] [facility] [address] [id number] [place] [address]- 8006 Oct, [facility] [place] [facility] [address] [id number] [place] [address]- 5283 Oct, [facility] [address] [id number] [place] [address]- 5504 Oct, [facility] [place] [facility] [address] [id number] [place] [address]- 3576 Sep, [facility] [place] [facility] [address] [id number] [place] [address]- 2546 Sep, [facility] [place] [facility] [address] [id number], [place] [address]- 2546 Aug, [facility] [place] [facility] [address] [id number] [place] [address]- 2546 Aug, [facility] [place] [facility] [address] [facility] [id number] [place] [address]- 2546 Jun, [facility] [place] [facility] [address] [id number] [place] [address]- 2546 Apr, [facility] [place] [facility] [address] [id number] [place] [address]- 9670 Apr, [facility] [address] [id number] [place] [address]- 3492 Mar, [facility] [address] [id number] [place] [address] 2546 Mar, [facility] [address] [id number] [place] [address]- 1978 January, [facility] [address] [id number] [place] [address]- 6100 January, [facility] [address] [id number] [place] [address]- 1803 Dec, [facility] [address] [id number] [place] [address]- 7866 Nov, [facility] [address] [id number] [place] [address]- 2361 Nov, [facility] [address] [id number] [place] [address]- 4842 Oct, [facility] [address] [id number] [place] [address]- 6044 Oct, [facility] [address] [id number] [place] [address]- 5589 Sep, [facility] [address] [id number] [place] [address]- 6839 Aug, [facility] [address] [id number] [place] [address]- 0898 Aug, [facility] [place] [facility] [address] [id number] [place] [address]- 4059 Aug, [facility] [address] [id number] [place] [address]- 2546 Aug, [facility] [address] [id number] [place] [address]- 2203 Aug, [facility] [place] [facility] [address] [facility] [id number] [place] [address]- 7369 Jul, [facility] [place] [facility] [address] [facility] [id number] [place] 2526 Jul, [facility] [place] [facility] [address] [facility] [id number], [place] [address]- 1738 Aug, IMMUNIZATIONS No Known Immunizations SOCIAL HISTORY Never Assessed REASON FOR VISIT f/u Chirag, update contract PLAN OF CARE VITAL SIGNS Height 64 in 2018-01-05 Heart Rate 88 bpm 2018-01-05 Respiratory Rate 20 2018-01-05 Blood pressure systolic 112 mmHg 2018-01-05 Blood pressure diastolic 64 mmHg 2018-01-05 MEDICATIONS Medication Instructions Dosage Frequency Start Date End Date Duration Status losartan 50 mg 1 Tablet by Oral route 1 time per day January, Active Metformin HCl 500 MG Orally Twice a day 1 tablet with meals 12h Active Klonopin 0.5 MG Orally One tablet as needed every other day. must last 30 days 1 tablet 21 days Active fluticasone 50 mcg/actuation 1 Nasal [place]xton by Nasal route 2 times per day ea nostril Oct, Active Farxiga 5 MG Orally Once a day 1 tablet 24h Unknown Toviaz 8 mg take 1 tablet (8 mg) by oral route once daily January, Active cyclobenzaprine 10 mg 1 Tablet by Oral route 3 times per day PRN Apr Active Ibuprofen 600 mg 1 Tablet by Oral route 3 times per day PRN Apr, Unknown amlodipine 10 mg 1 Tablet by Oral route 1 time per day Oct, Active levothyroxine 25 mcg take 1 tablet (25 mcg) by oral route once daily January, Active Januvia 100 mg 1 Tablet by Oral route 1 time per day January, Active Aspirin 325 mg 1 Tablet by Oral route 1 time per day Oct, Unknown Venlafaxine HCl ER 150 MG Orally Once a day 1 capsule with food 24h Active Zafirlukast 20 mg 1 Tablet by Oral route 2 times per day Oct, Active cetirizine 10 mg 1 Tablet by Oral route 1 time per day Oct, Active Isosorbide Mononitrate 60 mg take 1 tablet (60 mg) by oral route once daily in the morning January, Active Nystatin 175202 UNIT/ML Unknown Lamictal 25 MG Orally Once a day 2 tablet 24h Active Bumex 1 MG Orally Once a day 1 tablet 24h Active Symbicort 160-4.5 mcg/actuation 2 puff by Inhalation route 2 times per day Oct, Active Duloxetine HCl 60 mg Orally Once a day 1 capsule 24h 30 days Unknown Aripiprazole 15 mg Orally Once a day TAKE 1 TABLET BY MOUTH ONCE DAILY 24h 30 days Active Sertraline HCl 50 mg Orally Once a day 1 tablet 24h 30 days Unknown ProAir HFA 90 mcg/actuation 2 puffs by Inhalation route 3 times per day PRN Oct, Active Hydrocodone-Acetaminophen 5-325 MG Orally 2 times a day 1 tablet as needed 12h Unknown Omeprazole 40 MG Orally Once a day 1 capsule 24h Active Crestor 5 mg 1 Tablet by Oral route 1 time per day January, Active Furosemide 40 mg 2 Tablet by Oral route 1 time per day Oct, Unknown RESULTS No Results PROCEDURES Procedure Date Ordered Result Body Site [facility] VISIT ESTABLISHED PATIENT January 05, 2018 INSTRUCTIONS MEDICATIONS ADMINISTERED No Known Medications MEDICAL (GENERAL) HISTORY Type Description Date Medical History chronic pain Medical History hypothyroidism Medical History HTN Medical History GERD Medical History DM type 2 non insulin dependant Medical History COPD
--- OUTSIDE RECORDS SUMMARY | 2018-11-18 20:09 | XMS REPORT ---
Author Author BIANCA LIM Organization [facility] Address [address] [place] [address] Care Team Providers Care Brim Plater Name Role Phone BIANCA LIM Unavailable PROBLEMS Type Condition ICD9-CM Code CXV30-GF Code Onset Dates Condition Status SNOMED Code Problem Anxiety disorder, unspecified type F41.9 Active 572370521 Problem Bipolar I disorder, current or most recent episode depressed, in partial remission F31.75 Active 874383727 Problem Nicotine dependence, unspecified, uncomplicated F17.200 Active 23783798 Problem Anxiety disorder, unspecified F41.9 Active 613556509 Problem Borderline personality disorder F60.3 Active 69010739 Problem Bipolar II disorder in full remission F31.81 Active 11026401 ALLERGIES No Information ENCOUNTERS Encounter Location Date Diagnosis [facility] [id number] [place] [address] 83084- 6331 Jun, [facility] [id number] [place] [address] 74227- 9944 May, Bipolar I disorder, current or most recent episode depressed , in partial remission F31.75 ; Anxiety disorder, unspecified type F41.9 and Borderline personality disorder F60.3 [facility] [id number] [place] [address] 51974- 5913 May, [facility] [id number] [place] [address] 83155- 4412 Apr, Bipolar I disorder, current or most recent episode depressed , in partial remission F31.75 ; Anxiety disorder, unspecified type F41.9 and Borderline personality disorder F60.3 [facility] [id number] [place] [address] 52349- 2914 Dec, Anxiety disorder, unspecified F41.9 ; Borderline personality disorder F60.3 and Bipolar II disorder in full remission F31.81 [facility] [id number] [place] [address] 21996- 2452 Nov, Bipolar I disorder, current or most recent episode depressed , in partial remission F31.75 ; Anxiety disorder, unspecified type F41.9 and Borderline personality disorder F60.3 [facility] [id number] [place] [address] 20143- 4859 Nov, Bipolar I disorder, current or most recent episode depressed , in partial remission F31.75 ; Anxiety disorder, unspecified type F41.9 and Borderline personality disorder F60.3 [facility] [id number] [place] [address] 22992- 9210 Nov, Anxiety disorder, unspecified F41.9 [facility] [id number] [place] [address] 83654- 3002 Nov, Bipolar I disorder, current or most recent episode depressed , in partial remission F31.75 ; Anxiety disorder, unspecified type F41.9 and Borderline personality disorder F60.3 [facility] [address] [place] [address] Nov, Bipolar II disorder in full remission F31.81 [facility] [id number] [place] [address] 98925- 9561 Oct, Anxiety disorder, unspecified F41.9 [facility] [id number] [place] [address] 10433- 8639 Sep, Anxiety disorder, unspecified F41.9 [facility] [id number] [place] [address] 72128- 5014 Sep, [facility] [id number] [place] [address] 46452- 6964 Aug, [facility] [id number] [place] [address] 56643- 2883 Aug, Anxiety disorder, unspecified F41.9 [facility] [id number] [place] [address] 49818- 2539 Aug, [facility] [address], [place] [address] 7833 Jul, Anxiety disorder, unspecified F41.9 ; Borderline personality disorder F60.3 and Bipolar II disorder in full remission F31.81 [facility] [address] [place] [address] 5807 Jul, Borderline personality disorder F60.3 and Anxiety disorder, unspecified F41.9 [facility] [address] [address] 7527 Jul, [facility] [id number] [place] [address] 26150- 7840 Jun, Bipolar I disorder, current or most recent episode depressed , in partial remission F31.75 ; Anxiety disorder, unspecified type F41.9 and Borderline personality disorder F60.3 [facility] [address] [address] 0770 Jun, Anxiety disorder, unspecified F41.9 [facility] [address] [address] 9501 May, Bipolar I disorder, current or most recent episode depressed , in partial remission F31.75 ; Anxiety disorder, unspecified type F41.9 and Borderline personality disorder F60.3 [facility] [address] [address] 5129 May, [facility] [address] [address]- 6377 May, Anxiety disorder, unspecified F41.9 ; Borderline personality disorder F60.3 and Bipolar II disorder in full remission F31.81 [facility] [address] [address]- 4013 Apr, Anxiety disorder, unspecified F41.9 [facility] [address] [address]- 7084 Apr, Anxiety disorder, unspecified F41.9 [facility] [address] [address]- 3477 Mar, Anxiety disorder, unspecified F41.9 ; Borderline personality disorder F60.3 and Bipolar II disorder in full remission F31.81 [facility] [id number] [place] [address] 32735- 9692 Dec, Anxiety disorder, unspecified F41.9 [facility] [place] [id number] [place] [address] 94808- 1249 Nov, Anxiety disorder, unspecified F41.9 [facility] [id number] [place] [address] 90714- 3006 Nov, Anxiety disorder, unspecified F41.9 ; Nicotine dependence, unspecified, uncomplicated F17.200 ; Borderline personality disorder F60.3 and Bipolar II disorder in full remission F31.81 [facility] [id number] [place] [address] 43994- 9720 Nov, [place] [id number] [place] [address] 27969- 5491 Oct, Anxiety disorder, unspecified F41.9 [facility] [id number] [place] [address] 33151- 3915 Jul, [facility] [address] [place] [address] 79371- 2758 Jul, Anxiety disorder, unspecified F41.9 ; Nicotine dependence, unspecified, uncomplicated F17.200 ; Borderline personality disorder F60.3 and Bipolar II disorder in full remission F31.81 [place] [facility] [address] [place] [address] 33795- 5976 Jun, [facility] [id number] [place] [address] 07581- 7044 Jun, Anxiety disorder, unspecified F41.9 ; Nicotine dependence, unspecified, uncomplicated F17.200 ; Borderline personality disorder F60.3 and Bipolar II disorder in full remission F31.81 [facility] [address], [place] [address]- 3078 May, Bipolar 2 disorder F31.81 ; Anxiety disorder, unspecified F41.9 and Nicotine dependence, unspecified, uncomplicated F17.200 [facility] [address], [place] [address]- 6326 Apr, [facility] [id number] [place] [address] 74104- 4129 Apr, Bipolar 2 disorder F31.81 ; Anxiety disorder, unspecified F41.9 and Nicotine dependence, unspecified, uncomplicated F17.200 [facility] [id number] [place] [address] 26017- 9209 Apr, Bipolar 2 disorder F31.81 ; Anxiety disorder, unspecified F41.9 and Nicotine dependence, unspecified, uncomplicated F17.200 [facility] [id number] [place] [address] 97587- 8732 Mar, [facility] [id number] [place] [address] 28024- 1297 January, [facility] [id number] [place] [address] 31072- 4723 Dec, Bipolar II disorder F31.81 [facility] [address], [place] [address]- 7156 Dec, [facility] [id number] [place] [address] 37623- 3521 Nov, Bipolar 2 disorder F31.81 and Anxiety disorder, unspecified F41.9 [facility] [id number] [place] [address] 65340- 6113 Nov, Bipolar 2 disorder F31.81 and Anxiety disorder, unspecified F41.9 [facility] [address], [place] [address]- 1001 Nov, [facility] [address] [place] [address]- 3155 Nov, [facility] [address] [place] [address]- 7816 Nov, Bipolar 2 disorder F31.81 and Anxiety disorder, unspecified F41.9 [facility] [address] [place] [address]- 5217 Nov, Bipolar 2 disorder F31.81 [facility] [id number] [place] [address] 89025- 4991 Nov, [facility] [id number] [place] [address], [place] 1059 Nov, [facility] [id number] [place] [address] 10511- 5223 Oct, [facility] [id number] [place] [address] 00278- 6617 Oct, [facility] [address] [address]- 6311 Oct, [facility] [id number] [place] [address] 15459- 1868 Oct, Bipolar 2 disorder F31.81 [facility] [address], [place] [address]- 8538 Sep, [facility] [address] [place] [address]- 6216 Sep, [facility] [address] [place] [address]- 5498 Jul, Bipolar 2 disorder F31.81 [facility] [address] [place] [address]- 2516 Jun, [facility] [address] 2576 Jun, Bipolar 2 disorder 296.89 [facility] [id number] [place] [address] 16555- 2781 Jun, [facility] [address] [place] [address]- 0481 May, [facility] [address] [place] [address]- 6136 Apr, Bipolar 2 disorder 296.89 [facility] [id number] [place] [address] 98562- 9054 Apr, Bipolar 2 disorder 296.89 and Tobacco use disorder 305.1 [facility] [address] [place] [address] 01478- 8716 Mar, Bipolar II disorder 296.89 and Nicotine dependence 305.1 [facility] [address], [place] [address]- 8076 January, [facility] [address] [place] [address]- 3295 Dec, [facility] [address], [place] [address]- 7801 Dec, [facility] [address] [place] [address]- 8406 Nov, [facility] [address], [place] [address]- 4775 Nov, [facility] [address], [place] [address]- 2400 Oct, [facility] [address], [place] [address]- 4019 Oct, [facility] [address], [place] [address]- 7808 Sep, [facility] [address] 9266 Sep, [facility] [address] 3144 Sep, [facility] [place] [facility] [address] [id number] [place] [address]- 1683 19 Sep, 2014 [facility] [place] [facility] [address] [id number] [place] [address]- 4074 18 Sep, 2014 [facility] [place] [facility] [address] [id number] [place] [address]- 0244 Sep, [facility] [place] [facility] [address] [id number] [place] [address]- 9564 Sep, [facility] [place] [facility] [address] [id number] [place] [address]- 1532 Sep, [facility] [place] [facility] [address] [id number] [place] [address]- 0333 Sep, [facility] [place] [facility] [address] [id number] [place] [address]- 5941 Aug, [facility] [place] [facility] [address] [id number] [place] [address]- 3035 Aug, [facility] [place] [facility] [address] [id number] [place] [address]- 9141 Aug, [facility] [place] [facility] [address] [id number] [place] [address]- 3002 Aug, [facility] [place] [facility] [address] [id number] [place] [address]- 8783 Jul, [facility] [place] [facility] [address] [id number] [place] [address]- 1241 24 Jul, 2014 [facility] [place] [facility] [address] [id number] [place] [address]- 0653 16 Jun, 2014 [facility] [place] [facility] [address] [id number] [place] [address]- 0131 16 Jun, 2014 [facility] [place] [facility] [address] [id number] [place] 6831 11 Jun, 2014 [facility] [place] [facility] [address] [id number] [place] [address]- 6265 Jun, [facility] [place] [facility] [address] [id number] [place] [address]- 0199 Jun, [facility] [place] [facility] [address] [id number] [place] [address]- 7964 May, [facility] [place] [facility] [address] [id number] [place] [address]- 1105 May, [facility] [place] [facility] [address] [id number] [place] [address]- 7915 Apr, [facility] [place] [facility] [address] [id number] [place] [address]- 5384 Apr, [facility] [place] [facility] [address] [id number] [place] [address]- 2231 Mar, [facility] [place] [facility] [address] [id number] [place] [address]- 9072 Mar, [facility] [place] [facility] [address] [id number] [place] [address]- 9804 January, [facility] [place] [facility] [address] [id number] [place] [address]- 0202 January, [facility] [place] [facility] [address] [id number] [place] [address]- 3740 Dec, [facility] [place] [facility] [address] [id number] [place] [address]- 0716 Dec, [facility] [place] [facility] [address] [id number] [place] [address]- 2393 Dec, [facility] [place] [facility] [address] [id number] [place] [address]- 2089 Dec, [facility] [place] [facility] [address] [id number] [place] [address]- 2236 Dec, [facility] [place] [facility] [address] [id number] [place] [address]- 9881 Dec, [facility] [place] [facility] [address] [id number] [place] [address]- 1160 Nov, [facility] [place] [facility] [address] [id number] [place] 7713 Nov, [facility] [place] [facility] [address] [id number] [place] [address]- 7601 Nov, [facility] [place] [facility] [address] [id number] [place] [address]- 1165 Nov, [facility] [place] [facility] [address] [id number] [place] [address]- 7281 Nov, [facility] [place] [facility] [address] [id number] [place] [address]- 7959 Nov, [facility] [place] [facility] [address] [id number] [place] [address]- 2969 Nov, [facility] [place] [facility] [address] [id number] [place] [address]- 1371 Nov, [facility] [place] [facility] [address] [id number] [place] [address]- 7215 Oct, [facility] [place] [facility] [address] [id number] [place] [address]- 0684 Oct, [facility] [place] [facility] [address] [id number] [place] [address]- 3932 Aug, [facility] [place] [facility] [address] [id number] [place] [address]- 9275 Aug, [facility] [place] [facility] [address] [id number] [place] [address]- 8099 Aug, [facility] [place] [facility] [address] [id number] [place] [address]- 8598 Aug, [facility] [place] [facility] [address] [id number] [place] [address]- 3589 Jul, [facility] [place] [facility] [address] [id number] [place] [address]- 3487 Jun, [facility] [place] [facility] [address] [id number] [place] [address]- 9105 Apr, [facility] [place] [facility] [address] [id number] [place] [address]- 4990 Apr, [facility] [address] [id number] [place] [address]- 2562 Mar, [facility] [place] [facility] [address] [id number] [place] [address]- 2857 Nov, [facility] [address] [id number] [place] [address]- 3177 Nov, [facility] [place] [facility] [address] [id number] [place] [address]- 2209 Nov, [facility] [address] [id number] [place] [address]- 6788 Nov, [facility] [address] [id number] [place] [address]- 1042 Oct, [facility] [place] [facility] [address] [id number] [place] [address]- 4868 Oct, [facility] [address] [id number] [place] [address]- 8144 Oct, [facility] [address] [id number] [place] [address]- 9186 Sep, [facility] [place] [facility] [address] [id number], [place] [address]- 0657 Sep, [facility] [place] [facility] [address] [id number] [place] [address]- 9162 Aug, [facility] [place] [facility] [address] [id number] [place] [address]- 2546 Aug, [facility] [place] [facility] [address] [id number] [place] [address]- 9512 Jun, [facility] [place] [facility] [address] [id number], [place] [address]- 2516 Apr, [facility] [address] [id number] [place] [address]- 8922 Apr, [facility] [place] [facility] [address] [id number] [place] [address]- 4693 Mar, [facility] [place] [facility] [address] [id number] [place] [address]- 6176 Mar, [facility] [place] [facility] [address] [id number] [place] [address]- 0518 January, [facility] [place] [facility] [address] [id number] [place] [address]- 4681 January, [facility] [place] [facility] [address] [id number] [place] [address]- 6285 Dec, [facility] [place] [facility] [address] [id number] [place] [address]- 2046 Nov, [facility] [place] [facility] [address] [id number] [place] [address]- 2410 Nov, [facility] [place] [facility] [address] [id number] [place] [address]- 1861 Oct, [facility] [place] [facility] [address] [id number] [place] [address]- 1941 Oct, [facility] [place] [facility] [address] [id number] [place] [address]- 2688 Sep, [facility] [place] [facility] [address] [id number] [place] [address]- 8018 Aug, [facility] [place] [facility] [address] [id number] [place] [address]- 7406 Aug, [facility] [place] [facility] [address] [id number] [place] [address]- 6316 Aug, [facility] [place] [facility] [address] [facility] [id number] [place] [address]- 1656 Aug, [facility] [place] [facility] [address] [facility] [id number] [place] [address]- 5446 Aug, [facility] [address] [facility] [id number]- 9097 Jul, [facility] [address] [facility] [id number], [place] [address]- 6361 Jul, [facility] [address] [facility] [id number], [place] [address]- 5915 Aug, IMMUNIZATIONS No Known Immunizations SOCIAL HISTORY Never Assessed REASON FOR VISIT intake PLAN OF CARE Activity Details Follow Up 4 Weeks Reason:depression VITAL SIGNS MEDICATIONS Unknown Medications RESULTS No Results PROCEDURES Procedure Date Ordered Result Body Site [facility] VISIT MENTAL HEALTH ESTAB PT April 13, 2018 Psychotherapy, patient &/family, 30 minutes, established patient April 13, 2018 INSTRUCTIONS MEDICATIONS ADMINISTERED No Known Medications MEDICAL (GENERAL) HISTORY Type Description Date Medical History chronic pain Medical History hypothyroidism Medical History HTN Medical History GERD Medical History DM type 2 non insulin dependant Medical History COPD
--- OUTSIDE RECORDS SUMMARY | 2018-11-18 20:09 | XMS REPORT ---
Author Author BIANCA LIM Organization [facility] Address [address] [place] [address] Care Team Providers Care Regional Manager Name Role Phone BIANCA LIM Unavailable PROBLEMS Type Condition ICD9-CM Code LLG41-DG Code Onset Dates Condition Status SNOMED Code Problem Anxiety disorder, unspecified type F41.9 Active 956930185 Problem Bipolar I disorder, current or most recent episode depressed, in partial remission F31.75 Active 903452758 Problem Nicotine dependence, unspecified, uncomplicated F17.200 Active 60731359 Problem Anxiety disorder, unspecified F41.9 Active 958270982 Problem Borderline personality disorder F60.3 Active 08936266 Problem Bipolar II disorder in full remission F31.81 Active [id number] ALLERGIES No Information ENCOUNTERS Encounter Location Date Diagnosis [place] [id number] [place] [address] 32928- 8274 May, [place] [address] [place] [id number] [place] [address] 05677- 8140 Apr, Bipolar I disorder, current or most recent episode depressed , in partial remission F31.75 ; Anxiety disorder, unspecified type F41.9 and Borderline personality disorder F60.3 [facility] [id number] [place] [address] 14969- 6967 Dec, Anxiety disorder, unspecified F41.9 ; Borderline personality disorder F60.3 and Bipolar II disorder in full remission F31.81 [facility] [id number] [place] [address] 28576- 4653 Nov, Bipolar I disorder, current or most recent episode depressed , in partial remission F31.75 ; Anxiety disorder, unspecified type F41.9 and Borderline personality disorder F60.3 [facility] [id number] [place] [address] 81451- 9286 Nov, Bipolar I disorder, current or most recent episode depressed , in partial remission F31.75 ; Anxiety disorder, unspecified type F41.9 and Borderline personality disorder F60.3 [facility] [id number] [place] [address] 33725- 5164 Nov, Anxiety disorder, unspecified F41.9 [facility] [id number] [place] [address] 01053- 7551 Nov, Bipolar I disorder, current or most recent episode depressed , in partial remission F31.75 ; Anxiety disorder, unspecified type F41.9 and Borderline personality disorder F60.3 [facility] [address] [place] [address] Nov, Bipolar II disorder in full remission F31.81 [facility] [id number] [place] [address] 16951- 3774 Oct, Anxiety disorder, unspecified F41.9 [facility] [id number] [place] [address] 11369- 2168 Sep, Anxiety disorder, unspecified F41.9 [facility] [id number] [place] [address] 29121- 9750 Sep, [facility] [id number] [place] [address] 34938- 1572 Aug, [facility] [id number] [place] [address] 06917- 7019 Aug, Anxiety disorder, unspecified F41.9 [facility] [id number] [place] [address] 22999- 5590 Aug, [facility] [id number] [place] [address] 28271- 3572 Jul, Anxiety disorder, unspecified F41.9 ; Borderline personality disorder F60.3 and Bipolar II disorder in full remission F31.81 [facility] [id number] [place] [address] 38595- 7492 Jul, Borderline personality disorder F60.3 and Anxiety disorder, unspecified F41.9 [facility] [address] [place] [address] 8086 Jul, [facility] [id number] [place] [address] 12244- 7953 Jun, Bipolar I disorder, current or most recent episode depressed , in partial remission F31.75 ; Anxiety disorder, unspecified type F41.9 and Borderline personality disorder F60.3 [facility] [address] [place] [address] 0311 Jun, Anxiety disorder, unspecified F41.9 [facility] [id number] [place] [address] 17789- 3695 May, Bipolar I disorder, current or most recent episode depressed , in partial remission F31.75 ; Anxiety disorder, unspecified type F41.9 and Borderline personality disorder F60.3 [facility] [id number] [place] [address] 71502- 1677 May, [facility] [id number] [place] [address] 78284- 8490 May, Anxiety disorder, unspecified F41.9 ; Borderline personality disorder F60.3 and Bipolar II disorder in full remission F31.81 [facility] [address] [address]- 0567 Apr, Anxiety disorder, unspecified F41.9 [facility] [id number] [place] [address] 17852- 2069 Apr, Anxiety disorder, unspecified F41.9 [facility] [address] [place] [address] 90537- 6875 Mar, Anxiety disorder, unspecified F41.9 ; Borderline personality disorder F60.3 and Bipolar II disorder in full remission F31.81 [facility] [address] [address]- 1304 Dec, Anxiety disorder, unspecified F41.9 [facility] [address] [address]- 7987 Nov, Anxiety disorder, unspecified F41.9 [facility] [id number] [place] [address] 55490- 7066 Nov, Anxiety disorder, unspecified F41.9 ; Nicotine dependence, unspecified, uncomplicated F17.200 ; Borderline personality disorder F60.3 and Bipolar II disorder in full remission F31.81 [facility] [id number] [place] [address] 91670- 2008 Nov, [place] [address] [place] [id number] [place] [address] 42408- 1679 Oct, Anxiety disorder, unspecified F41.9 [place] [address] [place] [id number] [place] [address] 16610- 8927 Jul, [place] [address] [place] [id number] [place] [address] 78275- 3948 Jul, Anxiety disorder, unspecified F41.9 ; Nicotine dependence, unspecified, uncomplicated F17.200 ; Borderline personality disorder F60.3 and Bipolar II disorder in full remission F31.81 [place] [address] [address]- 6878 Jun, [place] [id number] [place] [address] 80598- 7151 Jun, Anxiety disorder, unspecified F41.9 ; Nicotine dependence, unspecified, uncomplicated F17.200 ; Borderline personality disorder F60.3 and Bipolar II disorder in full remission F31.81 [place] [id number] [place] [address] 10070- 3262 May, Bipolar 2 disorder F31.81 ; Anxiety disorder, unspecified F41.9 and Nicotine dependence, unspecified, uncomplicated F17.200 [place] [address], [place] [address]- 1130 Apr, [place] [address] [address]- 4295 Apr, Bipolar 2 disorder F31.81 ; Anxiety disorder, unspecified F41.9 and Nicotine dependence, unspecified, uncomplicated F17.200 [facility] [address] [address]- 4769 Apr, Bipolar 2 disorder F31.81 ; Anxiety disorder, unspecified F41.9 and Nicotine dependence, unspecified, uncomplicated F17.200 [facility] [id number] [place] [address] 94783- 7035 Mar, [facility] [address] [place] [address] [id number] [place] [address] 72750- 0106 January, [facility] [address] [place] [id number] [place] [address] 97589- 5270 Dec, Bipolar II disorder F31.81 [facility] [id number] [place] [address] 80627- 8607 Dec, [facility] [address] [id number] [place] [address] 93309- 6211 Nov, Bipolar 2 disorder F31.81 and Anxiety disorder, unspecified F41.9 [facility] [address], [place] [address]- 9327 Nov, Bipolar 2 disorder F31.81 and Anxiety disorder, unspecified F41.9 [facility] [address] [address]- 2638 Nov, [facility] [id number] [place] [address] 71558- 1825 Nov, [facility] [address] [place] [address] [id number] [place] [address] 71537- 2938 Nov, Bipolar 2 disorder F31.81 and Anxiety disorder, unspecified F41.9 [facility] [address] [address]- 3853 Nov, Bipolar 2 disorder F31.81 [facility] [address] [facility] [id number] [place] [address]- 5673 Nov, [facility] [address] [facility] [id number] [place] [address]- 9976 Nov, [facility] [address] [facility] [id number] [place] [address]- 2972 Oct, [facility] [address] [facility] [id number] [place] [address]- 8832 Oct, [facility] [address] [facility] [id number] [place] [address]- 0298 Oct, [facility] [address] [facility] [id number] [place] [address]- 3356 Oct, Bipolar 2 disorder F31.81 [facility] [place] [address] [address]- 9256 Sep, [facility] [address] [facility] [id number] [place] [address]- 6421 Sep, [facility] [address] [id number] 8545 Jul, Bipolar 2 disorder F31.81 [facility] [place] [id number] [address]- 2556 Jun, [facility] [place] [address], [place] [address]- 5101 Jun, Bipolar 2 disorder 296.89 [facility] [place] [address] [facility] [id number], [place] [address]- 7310 Jun, [facility] [id number] [address]- 2236 May, [facility] [place] [address] [facility] [id number] [place] [address]- 5706 Apr, Bipolar 2 disorder 296.89 [facility] [place] [address], [place] [address]- 4112 Apr, Bipolar 2 disorder 296.89 and Tobacco use disorder 305.1 [facility] [place] [address] [facility] [id number] [place] [address] 08375- 0705 Mar, Bipolar II disorder 296.89 and Nicotine dependence 305.1 [facility] [place] [address] [facility] [id number], [place] [address]- 9873 January, [facility] [address] [facility] [id number] [place] [address] 53552- 4353 Dec, [facility] [address] [facility] [id number], [place] [address]- 1667 Dec, [facility] [address] [facility] [id number] [place] [address] 69730- 6238 Nov, [facility] [place] [address] [place] [address] 48588- 8407 Nov, [facility] [place] [address] [place] [address] 02955- 8202 Oct, [facility] [place] [id number], [place] [address]- 6065 Oct, [facility] [place] [id number] [address]- 5951 Sep, [facility] [place] [address] [facility] [id number], [place] [address]- 2746 30 Sep, 2014 [facility] [place] [address] [facility] [id number], [place] [address]- 4714 Sep, [facility] [place] [address] [facility] [id number], [place] [address]- 4836 Sep, [facility] [place] [address] [facility] [id number], [place] [address]- 5027 Sep, [facility] [place] [id number] [address]- 5360 Sep, [facility] [id number] [place] [address], [place] [address]- 8737 Sep, [facility] [place] [facility] [address] [id number] [place] [address]- 6063 Sep, [facility] [place] [facility] [address] [id number] [place] [address]- 7656 Sep, [facility] [place] [facility] [address] [id number] [place] [address]- 1119 Aug, [facility] [place] [facility] [address] [id number] [place] [address]- 3867 Aug, [facility] [place] [facility] [address] [id number] [place] [address]- 6211 Aug, [facility] [place] [facility] [address] [id number] [place] [address]- 0540 Aug, [facility] [place] [facility] [address] [id number] [place] [address]- 1587 Jul, [facility] [place] [facility] [address] [id number] [place] [address]- 6539 Jul, [facility] [place] [facility] [address] [id number] [place] [address]- 2461 16 Jun, 2014 [facility] [place] [facility] [address] [id number] [place] [address]- 8080 16 Jun, 2014 [facility] [place] [facility] [address] [id number] [place] [address]- 5300 11 Jun, 2014 [facility] [place] [facility] [address] [id number] [place] [address]- 7469 11 Jun, 2014 [facility] [place] [facility] [address] [id number] [place] [address]- 0268 Jun, [facility] [place] [facility] [address] [id number] [place] [address]- 7755 May, [facility] [place] [facility] [address] [id number] [place] [address]- 9861 May, [facility] [place] [facility] [address] [id number] [place] [address]- 5951 Apr, [facility] [place] [facility] [address] [id number] [place] [address]- 7708 Apr, [facility] [place] [facility] [address] [id number] [place] [address]- 2615 Mar, [facility] [place] [facility] [address] [id number] [place] [address]- 0478 Mar, [facility] [place] [facility] [address] [id number] [place] [address]- 8946 January, [facility] [place] [facility] [address] [id number] [place] [address]- 0979 January, [facility] [place] [facility] [address] [id number] [place] [address]- 8178 Dec, [facility] [place] [facility] [address] [id number] [place] [address]- 2472 Dec, [facility] [place] [facility] [address] [id number] [place] [address]- 0748 Dec, [facility] [place] [facility] [address] [id number] [place] [address]- 0147 Dec, [facility] [place] [facility] [address] [id number] [place] [address]- 1091 Dec, [facility] [place] [facility] [address] [id number] [place] [address]- 7919 Dec, [facility] [place] [facility] [address] [id number] [place] [address]- 2212 Nov, [facility] [place] [facility] [address] [id number] [place] [address]- 7143 Nov, [facility] [place] [facility] [address] [id number] [place] [address]- 9810 Nov, [facility] [place] [facility] [address] [id number] [place] [address]- 5280 Nov, [facility] [place] [facility] [address] [id number] [place] 9125 Nov, [facility] [place] [facility] [address] [id number] [place] [address]- 0288 Nov, [facility] [place] [facility] [address] [id number] [place] 6012 Nov, [facility] [place] [facility] [address] [id number] [place] [address]- 2039 Nov, [facility] [place] [facility] [address] [id number] [place] [address]- 9714 Oct, [facility] [place] [facility] [address] [id number] [place] 5579 Oct, [facility] [place] [facility] [address] [id number] [place] 3789 Aug, [facility] [place] [facility] [address] [id number] [place] [address]- 7884 Aug, [facility] [place] [facility] [address] [id number] [place] [address]- 1401 Aug, [facility] [place] [facility] [address] [id number] [place] [address]- 3311 Aug, [facility] [place] [facility] [address] [id number], [place] [address]- 7809 Jul, [facility] [place] [facility] [address] [id number], [place] [address]- 7873 Jun, [facility] [place] [facility] [address] [id number] [place] [address]- 6819 Apr, [facility] [place] [facility] [address] [id number] [place] [address]- 0661 Apr, [facility] [place] [facility] [address] [id number] [place] [address]- 2061 Mar, [facility] [place] [facility] [address] [id number] [place] [address]- 2546 Nov, [facility] [address] [id number] [place] [address]- 7526 Nov, [facility] [place] [facility] [address] [id number] [place] [address]- 2546 Nov, [facility] [address] [id number] [place] [address]- 2546 Nov, [facility] [address] [id number] [place] [address] Oct, [facility] [address] [id number] [place] [address] Oct, [facility] [address] [id number] [place] [address] Oct, [facility] [address] [id number] [place] [address] Sep, [facility] [address] [id number] [place] [address] Sep, [facility] [address] [id number] [place] [address] Aug, [facility] [address] [id number] [place] [address] Aug, [facility] [address] [id number] [place] [address] Jun, [facility] [address] [id number] [place] [address] Apr, [facility] [place] [facility] [address] [id number] [place] [address] Apr, [facility] [place] [facility] [address] [id number] [place] [address] Mar, [facility] [place] [facility] [address] [id number] [place] [address] Mar, [facility] [place] [facility] [address] [id number] [place] [address] January, [facility] [place] [facility] [address] [id number] [place] [address] January, [facility] [place] [facility] [address] [id number] [place] [address] Dec, [facility] [place] [facility] [address] [id number] [place] [address] Nov, [facility] [place] [facility] [address] [id number] [place] [address] Nov, [facility] [place] [facility] [address] [id number] [place] [address] Oct, [facility] [place] [facility] [address] [id number] [place] [address] Oct, [facility] [place] [facility] [address] [id number] [place] [address] Sep, [facility] [place] [facility] [address] [id number] [place] [address] Aug, [facility] [place] [facility] [address] [id number] [place] [address] Aug, [facility] [place] [facility] [address] [id number], [place] [address] Aug, [facility] [place] [facility] [address] [id number], [place] [address] Aug, [facility] [place] [facility] [address] [id number] [place] [address] Aug, [facility] [place] [facility] [address] [id number] [place] [address] 24 Jul, 2011 [facility] [place] [facility] [address] [id number] [place] [address] Jul, [facility] [place] [facility] [address] [facility] [id number] [place] [address] Aug, IMMUNIZATIONS No Known Immunizations SOCIAL HISTORY Never Assessed REASON FOR VISIT BH f/u, Depression. PLAN OF CARE Activity Details Follow Up 2 Weeks Reason:depression VITAL SIGNS MEDICATIONS Unknown Medications RESULTS No Results PROCEDURES Procedure Date Ordered Result Body Site [facility] VIS[facility] ESTAB PT December 28, 2017 Psychotherapy, patient &/family, 30 minutes, established patient December 28, 2017 INSTRUCTIONS MEDICATIONS ADMINISTERED No Known Medications MEDICAL (GENERAL) HISTORY Type Description Date Medical History chronic pain Medical History hypothyroidism Medical History HTN Medical History GERD Medical History DM type 2 non insulin dependant Medical History COPD
--- OUTSIDE RECORDS SUMMARY | 2018-11-18 20:10 | XMS REPORT ---
Author Author BIANCA LMI Organization [facility] Address [address] [place] [address] Care Team Providers Care Industrial Relations Specialist Name Role Phone BIANCA LIM Unavailable PROBLEMS Type Condition ICD9-CM Code [id number] Code Onset Dates Condition Status SNOMED Code Problem Anxiety disorder, unspecified type F41.9 Active 187468138 Problem Bipolar I disorder, current or most recent episode depressed, in partial remission F31.75 Active 417363120 Problem Nicotine dependence, unspecified, uncomplicated F17.200 Active 41463237 Problem Anxiety disorder, unspecified F41.9 Active 142396634 Problem Borderline personality disorder F60.3 Active 41589989 Problem Bipolar II disorder in full remission F31.81 Active 77139666 ALLERGIES No Information ENCOUNTERS Encounter Location Date Diagnosis [place] [id number] [place] [address] 54955- 9363 May, [place] [address] [place] [id number] [place] [address] 33194- 4602 Apr, Bipolar I disorder, current or most recent episode depressed , in partial remission F31.75 ; Anxiety disorder, unspecified type F41.9 and Borderline personality disorder F60.3 [facility] [id number] [place] [address] 47809- 7104 Dec, Anxiety disorder, unspecified F41.9 ; Borderline personality disorder F60.3 and Bipolar II disorder in full remission F31.81 [facility] [id number] [place] [address] 84641- 4144 Nov, Bipolar I disorder, current or most recent episode depressed , in partial remission F31.75 ; Anxiety disorder, unspecified type F41.9 and Borderline personality disorder F60.3 [facility] [id number] [place] [address] 02294- 4561 Nov, Bipolar I disorder, current or most recent episode depressed , in partial remission F31.75 ; Anxiety disorder, unspecified type F41.9 and Borderline personality disorder F60.3 [facility] [id number] [place] [address] 83941- 0266 Nov, Anxiety disorder, unspecified F41.9 [facility] [id number] [place] [address] 07029- 2993 Nov, Bipolar I disorder, current or most recent episode depressed , in partial remission F31.75 ; Anxiety disorder, unspecified type F41.9 and Borderline personality disorder F60.3 [facility] [address] [place] [address] Nov, Bipolar II disorder in full remission F31.81 [facility] [id number] [place] [address] 71242- 7886 Oct, Anxiety disorder, unspecified F41.9 [facility] [id number] [place] [address] 56630- 8051 Sep, Anxiety disorder, unspecified F41.9 [facility] [id number] [place] [address] 00436- 3401 Sep, [facility] [id number] [place] [address] 81524- 3116 Aug, [facility] [id number] [place] [address] 43311- 0928 Aug, Anxiety disorder, unspecified F41.9 [facility] [id number] [place] [address] 38808- 4270 Aug, [facility] [id number] [place] [address] 70033- 8906 Jul, Anxiety disorder, unspecified F41.9 ; Borderline personality disorder F60.3 and Bipolar II disorder in full remission F31.81 [facility] [id number] [place] [address] 15060- 9968 Jul, Borderline personality disorder F60.3 and Anxiety disorder, unspecified F41.9 [facility] [address] [address] 0374 Jul, [facility] [id number] [place] [address] 69639- 1304 Jun, Bipolar I disorder, current or most recent episode depressed , in partial remission F31.75 ; Anxiety disorder, unspecified type F41.9 and Borderline personality disorder F60.3 [facility] [address] [address] 3763 Jun, Anxiety disorder, unspecified F41.9 [facility] [address] [place] [address] 66072- 8654 May, Bipolar I disorder, current or most recent episode depressed , in partial remission F31.75 ; Anxiety disorder, unspecified type F41.9 and Borderline personality disorder F60.3 [facility] [id number] [place] [address] 27048- 4112 May, [facility] [id number] [place] [address] 80653- 1726 May, Anxiety disorder, unspecified F41.9 ; Borderline personality disorder F60.3 and Bipolar II disorder in full remission F31.81 [facility] [address] [address] 6609 Apr, Anxiety disorder, unspecified F41.9 [facility] [address] [place] [address] 80124- 4873 Apr, Anxiety disorder, unspecified F41.9 [facility] [address] [place] [address] 46004- 5366 Mar, Anxiety disorder, unspecified F41.9 ; Borderline personality disorder F60.3 and Bipolar II disorder in full remission F31.81 [facility] [address] [address] 6851 Dec, Anxiety disorder, unspecified F41.9 [facility] [address] [address]- 0564 Nov, Anxiety disorder, unspecified F41.9 [facility] [address] [place] [address] 04802- 9156 Nov, Anxiety disorder, unspecified F41.9 ; Nicotine dependence, unspecified, uncomplicated F17.200 ; Borderline personality disorder F60.3 and Bipolar II disorder in full remission F31.81 [facility] [id number] [place] [address] 04286- 9723 Nov, [place] [address] [place] [id number] [place] [address] 57649- 1355 Oct, Anxiety disorder, unspecified F41.9 [place] [address] [place] [address] [id number] [place] [address] 79942- 7883 Jul, [place] [address] [address] [id number] [place] [address] 05268- 8476 Jul, Anxiety disorder, unspecified F41.9 ; Nicotine dependence, unspecified, uncomplicated F17.200 ; Borderline personality disorder F60.3 and Bipolar II disorder in full remission F31.81 [place] [address] [address]- 4500 Jun, [place] [id number] [place] [address] 30445- 2042 Jun, Anxiety disorder, unspecified F41.9 ; Nicotine dependence, unspecified, uncomplicated F17.200 ; Borderline personality disorder F60.3 and Bipolar II disorder in full remission F31.81 [place] [address] [place] [address] 86671- 2704 May, Bipolar 2 disorder F31.81 ; Anxiety disorder, unspecified F41.9 and Nicotine dependence, unspecified, uncomplicated F17.200 [place] [address] [address]- 2551 Apr, [place] [address] [address]- 9192 Apr, Bipolar 2 disorder F31.81 ; Anxiety disorder, unspecified F41.9 and Nicotine dependence, unspecified, uncomplicated F17.200 [facility] [id number] [address]- 6827 Apr, Bipolar 2 disorder F31.81 ; Anxiety disorder, unspecified F41.9 and Nicotine dependence, unspecified, uncomplicated F17.200 [facility] [id number] [place] [address] 81479- 8358 Mar, [facility] [address] [place] [id number] [place] [address] 58089- 5740 January, [facility] [address] [id number] [place] [address] 59976- 9787 Dec, Bipolar II disorder F31.81 [facility] [address] [place] [id number] [place] [address] 58520- 0807 Dec, [facility] [address] [id number] [place] [address] 64652- 3102 Nov, Bipolar 2 disorder F31.81 and Anxiety disorder, unspecified F41.9 [facility] [address] [address]- 4177 Nov, Bipolar 2 disorder F31.81 and Anxiety disorder, unspecified F41.9 [facility] [address] [address]- 6568 Nov, [facility] [id number] [place] [address] 41449- 8748 Nov, [facility] [address] [place] [id number] [place] [address] 55576- 8757 Nov, Bipolar 2 disorder F31.81 and Anxiety disorder, unspecified F41.9 [facility] [address] [address]- 8400 Nov, Bipolar 2 disorder F31.81 [facility] [address] [facility] [id number] [place] [address]- 6450 Nov, [facility] [address] [facility] [id number] [place] [address]- 7446 Nov, [facility] [address] [facility] [id number] [place] [address]- 1080 Oct, [facility] [address] [facility] [id number] [place] [address]- 2160 Oct, [facility] [address] [facility] [id number] [place] [address]- 5676 Oct, [facility] [address] [facility] [id number] [place] [address]- 4336 Oct, Bipolar 2 disorder F31.81 [facility] [address] [place] [address]- 0546 Sep, [facility] [address] [facility] [id number] [place] [address]- 4944 Sep, [facility] [address] [place] [id number] 7496 Jul, Bipolar 2 disorder F31.81 [facility] [id number] [address]- 7476 Jun, [facility] [address] [address]- 0901 Jun, Bipolar 2 disorder 296.89 [facility] [address] [facility] [id number] [address]- 2769 Jun, [facility] [address] [id number] [place] [address]- 2256 May, [facility] [address] [facility] [id number] [place] [address]- 5906 Apr, Bipolar 2 disorder 296.89 [facility] [address] [address]- 6981 Apr, Bipolar 2 disorder 296.89 and Tobacco use disorder 305.1 [facility] [address] [facility] [id number] [place] [address] 33835- 0731 Mar, Bipolar II disorder 296.89 and Nicotine dependence 305.1 [facility] [address] [facility] [id number], [place] [address]- 6648 January, [facility] [address] [facility] [id number] [place] [address] 10139- 3004 Dec, [facility] [address] [facility] [id number] [address]- 7557 Dec, [facility] [address] [facility] [id number] [place] [address] 68103- 7306 Nov, [facility] [id number] [place] [address] 71281- 5223 Nov, [facility] [id number] [place] [address] 92815- 0632 Oct, [facility] [id number] [address]- 6114 Oct, [facility] [id number] [address]- 9084 Sep, [facility] [address] [facility] [id number], [place] [address]- 7106 30 Sep, 2014 [facility] [address] [facility] [id number][place] [address]- 6520 Sep, [facility] [address] [facility] [id number][place] [address]- 2393 Sep, [facility] [address] [facility] [id number], [place] [address]- 0149 Sep, [facility] [id number] [address]- 2565 Sep, [facility] [id number] [place] [address], [place] [address]- 0605 Sep, [facility] [place] [facility] [address] [id number] [place] [address]- 1947 Sep, [facility] [place] [facility] [address] [id number] [place] [address]- 2509 Sep, [facility] [place] [facility] [address] [id number] [place] [address]- 2591 Aug, [facility] [place] [facility] [address] [id number] [place] [address]- 3746 Aug, [facility] [place] [facility] [address] [id number] [place] [address]- 4072 Aug, [facility] [place] [facility] [address] [id number] [place] [address]- 1723 Aug, [facility] [place] [facility] [address] [id number] [place] [address]- 9285 Jul, [facility] [place] [facility] [address] [id number] [place] [address]- 7039 Jul, [facility] [place] [facility] [address] [id number] [place] [address]- 2548 16 Jun, 2014 [facility] [place] [facility] [address] [id number] [place] [address]- 0800 16 Jun, 2014 [facility] [place] [facility] [address] [id number] [place] [address]- 7326 11 Jun, 2014 [facility] [place] [facility] [address] [id number] [place] [address]- 6432 11 Jun, 2014 [facility] [place] [facility] [address] [id number] [place] [address]- 5105 Jun, [facility] [place] [facility] [address] [id number] [place] [address]- 8239 May, [facility] [place] [facility] [address] [id number] [place] [address]- 6764 May, [facility] [place] [facility] [address] [id number] [place] [address]- 1876 Apr, [facility] [place] [facility] [address] [id number] [place] [address]- 8868 Apr, [facility] [place] [facility] [address] [id number] [place] [address]- 7867 Mar, [facility] [place] [facility] [address] [id number] [place] [address]- 6064 Mar, [facility] [place] [facility] [address] [id number] [place] [address]- 6484 January, [facility] [place] [facility] [address] [id number] [place] [address]- 1151 January, [facility] [place] [facility] [address] [id number] [place] [address]- 2174 Dec, [facility] [place] [facility] [address] [id number] [place] [address]- 4693 Dec, [facility] [place] [facility] [address] [id number] [place] [address]- 3035 Dec, [facility] [place] [facility] [address] [id number] [place] [address]- 1895 Dec, [facility] [place] [facility] [address] [id number] [place] [address]- 6752 Dec, [facility] [place] [facility] [address] [id number] [place] [address]- 7290 Dec, [facility] [place] [facility] [address] [id number] [place] [address]- 9306 Nov, [facility] [place] [facility] [address] [id number] [place] [address]- 1374 Nov, [facility] [place] [facility] [address] [id number] [place] [address]- 1632 Nov, [facility] [place] [facility] [address] [id number] [place] [address]- 6718 Nov, [facility] [place] [facility] [address] [id number] [place] 5001 Nov, [facility] [place] [facility] [address] [id number] [place] [address]- 4551 Nov, [facility] [place] [facility] [address] [id number] [place] 4573 Nov, [facility] [place] [facility] [address] [id number] [place] [address]- 2343 Nov, [facility] [place] [facility] [address] [id number] [place] [address]- 6656 Oct, [facility] [place] [facility] [address] [id number] [place] 3788 Oct, [facility] [place] [facility] [address] [id number] [place] 9116 Aug, [facility] [place] [facility] [address] [id number] [place] [address]- 1536 Aug, [facility] [place] [facility] [address] [id number] [place] [address]- 7936 Aug, [facility] [place] [facility] [address] [id number] [place] [address]- 5051 Aug, [facility] [place] [facility] [address] [id number], [place] [address]- 6084 Jul, [facility] [place] [facility] [address] [id number], [place] [address]- 5901 Jun, [facility] [place] [facility] [address] [id number] [place] [address]- 7296 Apr, [facility] [place] [facility] [address] [id number] [place] [address]- 7060 Apr, [facility] [place] [facility] [address] [id number] [place] [address]- 2020 Mar, [facility] [place] [facility] [address] [id number] [place] [address]- 2546 Nov, [facility] [address] [id number] [place] [address]- 2616 Nov, [facility] [place] [facility] [address] [id number] [place] [address]- 2546 Nov, [facility] [address] [id number] [place] [address]- 2546 Nov, [facility] [address] [id number] [place] [address]- 2546 Oct, [facility] [address] [id number] [place] [address]- 2546 Oct, [facility] [address] [id number] [place] [address]- 2546 Oct, [facility] [address] [id number] [place] [address]- 7656 Sep, [facility] [address] [id number] [place] [address]- 7055 Sep, [facility] [address] [id number] [place] [address]- 2546 Aug, [facility] [address] [id number] [place] [address]- 2546 Aug, [facility] [address] [id number] [place] [address]- 2546 Jun, [facility] [address] [id number] [place] [address]- 2546 Apr, [facility] [place] [facility] [address] [id number] [place] [address]- 2546 Apr, [facility] [place] [facility] [address] [id number] [place] [address]- 2546 Mar, [facility] [place] [facility] [address] [id number] [place] [address]- 3252 Mar, [facility] [place] [facility] [address] [id number] [place] [address]- 0326 January, [facility] [place] [facility] [address] [id number] [place] [address]- 7280 January, [facility] [place] [facility] [address] [id number] [place] [address]- 3491 Dec, [facility] [place] [facility] [address] [id number] [place] [address]- 0557 Nov, [facility] [place] [facility] [address] [id number] [place] [address]- 4738 Nov, [facility] [place] [facility] [address] [id number] [place] [address]- 6592 Oct, [facility] [place] [facility] [address] [id number] [place] [address]- 9177 Oct, [facility] [place] [facility] [address] [id number] [place] [address]- 9893 Sep, [facility] [place] [facility] [address] [id number] [place] [address]- 1809 Aug, [facility] [place] [facility] [address] [id number] [place] [address]- 0237 Aug, [facility] [place] [facility] [address] [id number], [place] [address]- 1802 Aug, [facility] [place] [facility] [address] [id number][place] [address]- 1375 Aug, [facility] [place] [facility] [address] [id number] [place] [address]- 4497 Aug, [facility] [place] [facility] [address] [id number] [place] [address] 24 Jul, 2011 [facility] [place] [facility] [address] [id number] [place] [address] Jul, [facility] [place] [facility] [address] [facility] [id number] [place] [address] Aug, IMMUNIZATIONS No Known Immunizations SOCIAL HISTORY Never Assessed REASON FOR VISIT BH f/u, Depression. PLAN OF CARE Activity Details Follow Up 2 Weeks Reason:depression VITAL SIGNS MEDICATIONS Unknown Medications RESULTS No Results PROCEDURES Procedure Date Ordered Result Body Site [facility] VISIT MENTAL HEALTH ESTAB PT December 14, 2017 Psychotherapy, patient &/family, 30 minutes, established patient December 14, 2017 INSTRUCTIONS MEDICATIONS ADMINISTERED No Known Medications MEDICAL (GENERAL) HISTORY Type Description Date Medical History chronic pain Medical History hypothyroidism Medical History HTN Medical History GERD Medical History DM type 2 non insulin dependant Medical History COPD
--- OUTSIDE RECORDS SUMMARY | 2018-11-18 20:10 | XMS REPORT ---
Author Author BERNARD PATRICIA [facility] Address [address] [place] [address] Care Team Providers Care Production Controller Name Role Phone BERNARD PATRICIA Unavailable PROBLEMS Type Condition ICD9-CM Code [id number] Code Onset Dates Condition Status SNOMED Code Problem Anxiety disorder, unspecified type F41.9 Active 287507708 Problem Bipolar I disorder, current or most recent episode depressed, in partial remission F31.75 Active 538569089 Problem Nicotine dependence, unspecified, uncomplicated F17.200 Active 73302224 Problem Anxiety disorder, unspecified F41.9 Active 763565619 Problem Borderline personality disorder F60.3 Active 47361011 Problem Bipolar II disorder in full remission F31.81 Active 57060301 ALLERGIES No Information ENCOUNTERS Encounter Location Date Diagnosis [place] [id number], [place] [address] Dec, Anxiety disorder, unspecified F41.9 ; Borderline personality disorder F60.3 and Bipolar II disorder in full remission F31.81 [facility] [id number] [address] Nov, Bipolar I disorder, current or most recent episode depressed , in partial remission F31.75 ; Anxiety disorder, unspecified type F41.9 and Borderline personality disorder F60.3 [facility] [id number] [address] Nov, Bipolar I disorder, current or most recent episode depressed , in partial remission F31.75 ; Anxiety disorder, unspecified type F41.9 and Borderline personality disorder F60.3 [facility] [id number] [address] Nov, Anxiety disorder, unspecified F41.9 [facility] [id number], [place] [address] Nov, Bipolar I disorder, current or most recent episode depressed , in partial remission F31.75 ; Anxiety disorder, unspecified type F41.9 and Borderline personality disorder F60.3 [facility] [place] [address] [facility] [id number] [place] [id number] Nov, Bipolar II disorder in full remission F31.81 [facility] [id number], [place] [address] Oct, Anxiety disorder, unspecified F41.9 [facility] [id number] [address] Sep, Anxiety disorder, unspecified F41.9 [facility] [id number] [address] Sep, [facility] [address], [place] [address] Aug, [facility] [address], [place] [address] Aug, Anxiety disorder, unspecified F41.9 [facility] [id number], [place] [address] Aug, [facility] [address], [place] [address] Jul, Anxiety disorder, unspecified F41.9 ; Borderline personality disorder F60.3 and Bipolar II disorder in full remission F31.81 [facility] [id number] [address] Jul, Borderline personality disorder F60.3 and Anxiety disorder, unspecified F41.9 [facility] [id number] [address] Jul, [facility] [id number] [address] Jun, Bipolar I disorder, current or most recent episode depressed , in partial remission F31.75 ; Anxiety disorder, unspecified type F41.9 and Borderline personality disorder F60.3 [facility] [id number] [place] [address]798- 4765 Jun, Anxiety disorder, unspecified F41.9 [facility] [id number] [place] [address]60[address]- 8417 May, Bipolar I disorder, current or most recent episode depressed , in partial remission F31.75 ; Anxiety disorder, unspecified type F41.9 and Borderline personality disorder F60.3 [facility] [id number] [place] [address] 02362- 9285 May, [facility] [id number] [place] [address] 60[address]- 0442 May, Anxiety disorder, unspecified F41.9 ; Borderline personality disorder F60.3 and Bipolar II disorder in full remission F31.81 [place] [id number] [place] [address]- 9010 Apr, Anxiety disorder, unspecified F41.9 [place] [id number] [place] [address]- 9356 Apr, Anxiety disorder, unspecified F41.9 [facility] [id number] [place] [address]87- 1278 Mar, Anxiety disorder, unspecified F41.9 ; Borderline personality disorder F60.3 and Bipolar II disorder in full remission F31.81 [facility] [id number] [place] [address]6801- 9309 Dec, Anxiety disorder, unspecified F41.9 [facility] [id number] [place] [address] 04041- 0840 Nov, Anxiety disorder, unspecified F41.9 [facility] [id number] [place] [address] 77928- 2019 Nov, Anxiety disorder, unspecified F41.9 ; Nicotine dependence, unspecified, uncomplicated F17.200 ; Borderline personality disorder F60.3 and Bipolar II disorder in full remission F31.81 [place] [address], [place] [address] Nov, [facility] [address], [place] [address]72 Oct, Anxiety disorder, unspecified F41.9 [place] [id number] [place] [address]- 2251 Jul, [place] [id number] [place] [address] 28544- 7806 Jul, Anxiety disorder, unspecified F41.9 ; Nicotine dependence, unspecified, uncomplicated F17.200 ; Borderline personality disorder F60.3 and Bipolar II disorder in full remission F31.81 [place] [id number] [place] [address] 73454- 6176 Jun, [place] [id number] [place] [address] 26928- 3688 Jun, Anxiety disorder, unspecified F41.9 ; Nicotine dependence, unspecified, uncomplicated F17.200 ; Borderline personality disorder F60.3 and Bipolar II disorder in full remission F31.81 [place] [address], [place] [address] May, Bipolar 2 disorder F31.81 ; Anxiety disorder, unspecified F41.9 and Nicotine dependence, unspecified, uncomplicated F17.200 [place] [address], [place] [address]- 1666 Apr, [place] [id number] [place] [address] 62762- 0239 Apr, Bipolar 2 disorder F31.81 ; Anxiety disorder, unspecified F41.9 and Nicotine dependence, unspecified, uncomplicated F17.200 [place] [address], [place] [address] 35[address] Apr, Bipolar 2 disorder F31.81 ; Anxiety disorder, unspecified F41.9 and Nicotine dependence, unspecified, uncomplicated F17.200 [facility] [id number] [place] [address] 01233- 1576 Mar, [facility] [id number] [place] [address] 17981- 5476 January, [facility] [id number] [place] [address] 21417- 8676 Dec, Bipolar II disorder F31.81 [facility] [id number] [place] [address] 61775 2546 Dec, [facility] [id number] [place] [address] 07564- 2198 Nov, Bipolar 2 disorder F31.81 and Anxiety disorder, unspecified F41.9 [facility] [id number] [place] [address] 39813- 5384 Nov, Bipolar 2 disorder F31.81 and Anxiety disorder, unspecified F41.9 [facility] [id number] [place] [address] 64245- 6515 Nov, [facility] [id number] [place] [address] 48673- 9963 Nov, [facility] [id number] [place] [address] 17899- 7078 Nov, Bipolar 2 disorder F31.81 and Anxiety disorder, unspecified F41.9 [facility] [id number] [place] [address] 04997 2544 Nov, Bipolar 2 disorder F31.81 [facility] [id number] [place] [address] 53134- 6006 Nov, [facility] [address], [place] [address]- 2546 Nov, [facility] [id number] [place] [address] 87016- 6010 Oct, [facility] [address] [address]60 Oct, [facility] [id number] [place] [address] 62574- 4925 Oct, [facility] [id number] [place] [address] 02473- 9760 Oct, Bipolar 2 disorder F31.81 [facility] [id number] [place] [address] 92159- 7611 Sep, [facility] [id number] [place] [address] 67869- 3404 Sep, [facility] [id number] [place] [address] 11446- 8854 Jul, Bipolar 2 disorder F31.81 [facility] [id number] [place] [address] 11082- 4563 Jun, [facility] [id number] [place] [address] 98448- 1558 Jun, Bipolar 2 disorder 296.89 [facility] [id number] [place] [address] 950622- 9079 Jun, [facility] [address], [place] [address]- 3482 May, [facility] [id number] [place] [address] 58590- 4151 Apr, Bipolar 2 disorder 296.89 [facility] [address] 7440 Apr, Bipolar 2 disorder 296.89 and Tobacco use disorder 305.1 [facility] [id number] [place] [address] 41124- 0089 Mar, Bipolar II disorder 296.89 and Nicotine dependence 305.1 [facility] [id number] [place] [address] 66435- 4803 January, [facility] [place] [facility] [address] [id number] [place] [address]- 8216 Dec, [facility] [place] [facility] [address] [id number] [place] [address]- 5949 Dec, [facility] [place] [facility] [address] [id number] [place] [address]- 0573 Nov, [facility] [place] [facility] [address] [id number] [place] [address]- 7194 Nov, [facility] [place] [facility] [address] [id number] [place] [address]- 3439 Oct, [facility] [place] [facility] [address] [id number] [place] [address]- 7152 Oct, [facility] [place] [facility] [address] [id number] [place] [address]- 6205 Sep, [facility] [place] [facility] [address] [id number] [place] [address]- 9704 Sep, [facility] [place] [facility] [address] [id number] [place] [address]- 6048 Sep, [facility] [place] [facility] [address] [id number] [place] [address]- 8671 Sep, [facility] [place] [facility] [address] [id number] [place] [address]- 6935 Sep, [facility] [place] [facility] [address] [id number] [place] [address]- 0990 18 Sep, 2014 [facility] [place] [facility] [address] [id number] [place] [address]- 8870 17 Sep, 2014 [facility] [place] [facility] [address] [id number] [place] [address]- 9701 Sep, [facility] [place] [facility] [address] [id number] [place] [address] Sep, [facility] [place] [facility] [address] [id number] [place] [address]- 2274 Aug, [facility] [place] [facility] [address] [id number] [place] [address]- 7618 Aug, [facility] [place] [facility] [address] [id number] [place] [address]- 1381 Aug, [facility] [place] [facility] [address] [id number] [place] [address]- 9497 Aug, [facility] [place] [facility] [address] [id number] [place] [address]- 5401 Jul, [facility] [place] [facility] [address] [id number] [place] [address]- 9068 Jul, [facility] [place] [facility] [address] [id number] [place] [address]- 2557 16 Jun, 2014 [facility] [place] [facility] [address] [id number] [place] [address]- 4364 16 Jun, 2014 [facility] [place] [facility] [address] [id number] [place] [address]- 9420 Jun, [facility] [place] [facility] [address] [id number] [place] [address]- 9299 Jun, [facility] [place] [facility] [address] [id number] [place] [address]- 2368 Jun, [facility] [place] [facility] [address] [id number] [place] [address]- 7896 May, [facility] [place] [facility] [address] [id number] [place] [address]- 0828 May, [facility] [place] [facility] [address] [id number] [place] [address]- 1842 Apr, [facility] [place] [facility] [address] [id number] [place] [address]- 5549 Apr, [facility] [place] [facility] [address] [id number] [place] [address]- 2674 Mar, [facility] [place] [facility] [address] [id number] [place] [address]- 0463 Mar, [facility] [place] [facility] [address] [id number] [place] [address]- 1128 January, [facility] [place] [facility] [address] [id number] [place] [address]- 7767 January, [facility] [place] [facility] [address] [id number] [place] [address]- 9217 Dec, [facility] [place] [facility] [address] [id number] [place] [address]- 4948 Dec, [facility] [place] [facility] [address] [id number] [place] [address]- 7118 Dec, [facility] [place] [facility] [address] [id number] [place] [address]- 7896 Dec, [facility] [place] [facility] [address] [id number] [place] [address]- 3248 Dec, [facility] [place] [facility] [address] [id number] [place] [address]- 3724 Dec, [facility] [place] [facility] [address] [id number] [place] [address]- 7018 Nov, [facility] [place] [facility] [address] [id number] [place] [address]- 5573 Nov, [facility] [place] [facility] [address] [id number] [place] [address]- 3399 Nov, [facility] [place] [facility] [address] [id number] [place] [address]- 1883 Nov, [facility] [place] [facility] [address] [id number] [place] [address]- 7527 Nov, [facility] [place] [facility] [address] [id number] [place] [address]- 5425 Nov, [facility] [place] [facility] [address] [id number], [place] [address]- 8259 Nov, [facility] [address] [id number] [place] [address]- 3631 Nov, [facility] [place] [facility] [address] [id number] [place] [address]- 8165 Oct, [facility] [place] [facility] [address] [facility] [id number] [place] [address]- 6180 Oct, [facility] [place] [facility] [address] [id number] [place] [address]- 6174 Aug, [facility] [place] [facility] [address] [id number] [place] [address]- 1266 Aug, [facility] [place] [facility] [address] [facility] [id number] [place] [address]- 3009 Aug, [facility] [place] [facility] [address] [facility] [id number] [place] [address]- 1740 Aug, [facility] [place] [facility] [address] [facility] [id number] [place] [address]- 0553 Jul, [facility] [place] [facility] [address] [facility] [address] [id number], [place] [address]- 3124 Jun, [facility] [place] [facility] [address] [facility] [id number] [place] [address]- 7512 Apr, [facility] [place] [facility] [address] [facility] [id number], [place] [address]- 4100 Apr, [facility] [place] [facility] [address] [facility] [address] [id number], [place] [address]- 7455 Mar, [facility] [place] [facility] [address] [id number], [place] [address]- 1672 Nov, [facility] [place] [facility] [address] [facility] [address] [id number], [place] [address]- 4536 Nov, [facility] [place] [facility] [address] [facility] [address] [id number], [place] [address]- 0738 Nov, [facility] [place] [facility] [address] [id number] [place] [address]- 2546 Nov, [facility] [place] [facility] [address] [id number] [place] [address]- 0466 Oct, [facility] [place] [facility] [address] [id number] [place] [address]- 2546 Oct, [facility] [place] [facility] [address] [id number] [place] [address]- 2546 Oct, [facility] [place] [facility] [address] [id number] [place] [address]- 2546 Sep, [facility] [place] [facility] [address] [id number] [place] [address]- 1686 Sep, [facility] [place] [facility] [address] [id number] [place] [address]- 2546 Aug, [facility] [place] [facility] [address] [id number] [place] [address]- 2526 Aug, [facility] [place] [facility] [address] [id number] [place] [address]- 4474 Jun, [facility] [place] [facility] [address] [id number] [place] [address]- 7786 Apr, [facility] [place] [facility] [address] [id number] [place] [address]- 2546 Apr, [facility] [place] [facility] [address] [id number] [place] [address]- 2546 Mar, [facility] [place] [facility] [address] [id number] [place] [address]- 2546 Mar, [facility] [place] [facility] [address] [id number] [place] [address]- 2546 January, [facility] [place] [facility] [address] [id number] [place] [address]- 2546 January, [facility] [place] [facility] [address] [id number] [place] [address]- 3968 Dec, [facility] [id number] [address]- 7189 Nov, [facility] [address], [place] [address]- 4496 Nov, [facility] [address], [place] [address]- 2108 Oct, [facility] [id number] [address]- 1889 Oct, [facility] [address], [place] [address]- 0279 Sep, [facility] [id number] [place] [address] 30570- 1830 Aug, [facility] [address], [place] [address]- 5462 Aug, [facility] [address] [address]- 0485 Aug, [facility] [address], [place] [address]- 7834 Aug, [facility] [address] [address]- 0973 Aug, [facility] [address], [place] [address]- 0395 Jul, [facility] [address], [place] [address]- 7242 Jul, [facility] [id number] [address]- 9707 Aug, IMMUNIZATIONS No Known Immunizations SOCIAL HISTORY Never Assessed REASON FOR VISIT Refill request PLAN OF CARE VITAL SIGNS MEDICATIONS Medication Instructions Dosage Frequency Start Date End Date Duration Status Aripiprazole 15 mg Orally Once a day TAKE 1 TABLET BY MOUTH ONCE DAILY 24h 30 Active Duloxetine HCl 60 mg Orally Once a day 1 capsule 24h 30 Active Klonopin 0.5 MG Orally One tablet as needed every other day. must last 30 days 1 tablet 30 days Active RESULTS No Results PROCEDURES No Known procedures INSTRUCTIONS MEDICATIONS ADMINISTERED No Known Medications MEDICAL (GENERAL) HISTORY Type Description Date Medical History chronic pain Medical History hypothyroidism Medical History HTN Medical History GERD Medical History DM type 2 non insulin dependant Medical History COPD
--- OUTSIDE RECORDS SUMMARY | 2018-11-18 20:11 | XMS REPORT ---
Author Author BERNARD PATRICIA Organization [facility] Address [address] [place] [address] Care Team Providers Care Vamp Strap Ironer Name Role Phone JOAN PATRICIAAGUS Unavailable PROBLEMS Type Condition ICD9-CM Code [id number]-MP Code Onset Dates Condition Status SNOMED Code Problem Borderline personality disorder F60.3 Active 40692263 Problem Bipolar II disorder in full remission F31.81 Active 77527837 Assessment Anxiety disorder, unspecified F41.9 Jun, Active 494753546 Problem Nicotine dependence, unspecified, uncomplicated F17.200 Active 38603431 Problem Anxiety disorder, unspecified F41.9 Active 427146120 ALLERGIES Substance Reaction Event Type Date Status Sulfacetamide Sodium Unknown Drug Allergy Jun, Active Penicillin V Potassium Unknown Drug Allergy Jun, Active Macrobid Unknown Drug Allergy Jun, Active Biaxin shortness of breath Drug Allergy Jun, Active Avelox shortness of breath Drug Allergy Jun, Active Desyrel halluinate Drug Allergy Jun, Active SOCIAL HISTORY No smoking Hx information available PLAN OF CARE VITAL SIGNS Height 64 in 2016-06-10 Heart Rate 80 bpm 2016-06-10 Respiratory Rate 24 2016-06-10 Blood pressure systolic 118 mmHg 2016-06-10 Blood pressure diastolic 70 mmHg 2016-06-10 MEDICATIONS Medication Instructions Dosage Frequency Start Date End Date Duration Status Metformin HCl 500 MG Orally Twice a day 1 tablet with meals 12h Active Crestor 5 mg 1 Tablet by Oral route 1 time per day January, Active Aripiprazole 15 MG TAKE 1 TABLET BY MOUTH ONCE DAILY 30 Active Klonopin 0.5 MG Orally Twice a day PRN anxiety 1 tablet Oct, Active ProAir HFA 90 mcg/actuation 2 puffs by Inhalation route 3 times per day PRN Oct, Active fluticasone 50 mcg/actuation 1 Nasal [place] by Nasal route 2 times per day ea nostril Oct, Active Isosorbide Mononitrate 60 mg take 1 tablet (60 mg) by oral route once daily in the morning January, Active cetirizine 10 mg 1 Tablet by Oral route 1 time per day Oct, Active Aspirin 325 mg 1 Tablet by Oral route 1 time per day Oct, Active losartan 50 mg 1 Tablet by Oral route 1 time per day January, Active Sertraline HCl 50 mg Orally Once a day 1 tablet 24h Jun, Active Duloxetine HCl 60 MG TAKE 2 CAPSULES BY MOUTH ONCE DAILY 30 Active Symbicort 160-4.5 mcg/actuation 2 puff by Inhalation route 2 times per day Oct, Active Zafirlukast 20 mg 1 Tablet by Oral route 2 times per day Oct, Active amlodipine 10 mg 1 Tablet by Oral route 1 time per day Oct, Active Omeprazole 20 mg Orally Once a day 1 capsule 24h Active Hydrocodone-Acetaminophen 5-325 MG Orally 2 times a day 1 tablet as needed 12h Active Farxiga 5 MG Orally Once a day 1 tablet 24h Active Cymbalta 60 mg Orally Once a day take 2 capsule by Oral route 1 time per day 24h Oct, Active cyclobenzaprine 10 mg 1 Tablet by Oral route 3 times per day PRN Apr Active Januvia 100 mg 1 Tablet by Oral route 1 time per day January, Active Bumex 1 MG Orally Once a day 1 tablet 24h Active levothyroxine 25 mcg take 1 tablet (25 mcg) by oral route once daily January, Active Abilify 15 MG Orally Once a day take 1 tablet (15 mg) by oral route once daily 24h Active Toviaz 8 mg take 1 tablet (8 mg) by oral route once daily January, Active RESULTS No Results PROCEDURES Procedure Date Ordered Related Diagnosis Body Site [facility] VISIT ESTABLISHED PATIENT Jun 10, 2016 Office Visit, Est Pt., Level 2 Jun 10, 2016 IMMUNIZATIONS No Known Immunizations
--- OUTSIDE RECORDS SUMMARY | 2018-11-18 20:11 | XMS REPORT ---
Author Author BERNARD PATRICIA Organization [employer] Address Unknown Phone Unavailable Care Team Providers Care Cast Iron Dipper Name Role Phone BERNARD PATRICIA CP Unavailable Allergies No Known Allergies Problems Problem Type Condition Code Onset Dates Condition Status Problem Bipolar II disorder in full remission F31.81 Active Problem Nicotine dependence, unspecified, uncomplicated F17.200 Active Problem Borderline personality disorder F60.3 Active Problem Anxiety disorder, unspecified F41.9 Active Medications Medication Code System Code Instructions Start Date End Date Status Dosage Klonopin [facility] [address]-57 0.5 MG Orally Twice a day PRN anxiety 1 tablet Results No Known Results Summary Purpose [employer] Submission
--- OUTSIDE RECORDS SUMMARY | 2018-11-18 20:11 | XMS REPORT ---
Author Author МАРИЯ BRAXTON Organization [facility] Address [address] [place] [address] Care Team Providers Care Decoration Checker Name Role Phone MICKEYBRAXTON HARDING Unavailable PROBLEMS Type Condition ICD9-CM Code QFT01-MJ Code Onset Dates Condition Status SNOMED Code Problem Anxiety disorder, unspecified type F41.9 Active 331830867 Problem Bipolar I disorder, current or most recent episode depressed, in partial remission F31.75 Active 851717958 Problem Nicotine dependence, unspecified, uncomplicated F17.200 Active 55268645 Problem Anxiety disorder, unspecified F41.9 Active 862869576 Problem Borderline personality disorder F60.3 Active 23358520 Problem Bipolar II disorder in full remission F31.81 Active 57413156 ALLERGIES No Information ENCOUNTERS Encounter Location Date Diagnosis [facility] [id number] [place] [address] 47295- 2806 Apr, [facility] [id number] [place] [address] 22776- 5926 Dec, Anxiety disorder, unspecified F41.9 ; Borderline personality disorder F60.3 and Bipolar II disorder in full remission F31.81 [facility] [id number] [place] [address] 18235- 2307 Nov, Bipolar I disorder, current or most recent episode depressed , in partial remission F31.75 ; Anxiety disorder, unspecified type F41.9 and Borderline personality disorder F60.3 [facility] [address] [place] [address] 51694- 0388 Nov, Bipolar I disorder, current or most recent episode depressed , in partial remission F31.75 ; Anxiety disorder, unspecified type F41.9 and Borderline personality disorder F60.3 [facility] [address] [place] [address] 75687- 8810 Nov, Anxiety disorder, unspecified F41.9 [facility] [address] [address] 8[address] Nov, Bipolar I disorder, current or most recent episode depressed , in partial remission F31.75 ; Anxiety disorder, unspecified type F41.9 and Borderline personality disorder F60.3 [facility] [place] [address] [facility] [id number] [place] [id number] Nov, Bipolar II disorder in full remission F31.81 [facility] [id number] [place] [address] 67537- 7075 Oct, Anxiety disorder, unspecified F41.9 [facility] [id number] [place] [address] 51631- 1554 Sep, Anxiety disorder, unspecified F41.9 [facility] [address] [place] [address] 83639- 0757 Sep, [facility] [id number] [place] [address] 43674- 8772 Aug, [facility] [id number] [place] [address] 61420- 3800 Aug, Anxiety disorder, unspecified F41.9 [facility] [address] [address] 4407 Aug, [facility] [address] [place] [address] 25163- 6239 Jul, Anxiety disorder, unspecified F41.9 ; Borderline personality disorder F60.3 and Bipolar II disorder in full remission F31.81 [facility] [address] [place] [address] 09021- 5916 Jul, Borderline personality disorder F60.3 and Anxiety disorder, unspecified F41.9 [facility] [address] [address] 1763 Jul, [facility] [address] [address] 9272 Jun, Bipolar I disorder, current or most recent episode depressed , in partial remission F31.75 ; Anxiety disorder, unspecified type F41.9 and Borderline personality disorder F60.3 [facility] [address], [place] [address] 9165 Jun, Anxiety disorder, unspecified F41.9 [facility] [id number] [place] [address] 55261- 4831 May, Bipolar I disorder, current or most recent episode depressed , in partial remission F31.75 ; Anxiety disorder, unspecified type F41.9 and Borderline personality disorder F60.3 [facility] [id number] [place] [address] 80043- 0860 May, [facility] [id number] [place] [address] 83734- 2622 May, Anxiety disorder, unspecified F41.9 ; Borderline personality disorder F60.3 and Bipolar II disorder in full remission F31.81 [facility] [id number] [place] [address] 30726- 0350 Apr, Anxiety disorder, unspecified F41.9 [facility] [id number] [place] [address] 27268- 9604 Apr, Anxiety disorder, unspecified F41.9 [facility] [id number] [place] [address] 98700- 6667 Mar, Anxiety disorder, unspecified F41.9 ; Borderline personality disorder F60.3 and Bipolar II disorder in full remission F31.81 [facility] [address] [place] [address] 25059- 3623 Dec, Anxiety disorder, unspecified F41.9 [facility] [address] [place] [address] 60795- 7836 Nov, Anxiety disorder, unspecified F41.9 [facility] [id number] [address] Nov, Anxiety disorder, unspecified F41.9 ; Nicotine dependence, unspecified, uncomplicated F17.200 ; Borderline personality disorder F60.3 and Bipolar II disorder in full remission F31.81 [facility] [address] [place] [address] 00399- 1024 Nov, [facility] [id number] [place] [address] 19295- 7414 Oct, Anxiety disorder, unspecified F41.9 [facility] [id number] [place] [address] 00978- 1032 Jul, [facility] [id number] [place] [address] 62000- 8430 Jul, Anxiety disorder, unspecified F41.9 ; Nicotine dependence, unspecified, uncomplicated F17.200 ; Borderline personality disorder F60.3 and Bipolar II disorder in full remission F31.81 [facility] [id number] [place] [address] 89360- 3327 Jun, [facility] [id number] [place] [address] 31759- 7278 Jun, Anxiety disorder, unspecified F41.9 ; Nicotine dependence, unspecified, uncomplicated F17.200 ; Borderline personality disorder F60.3 and Bipolar II disorder in full remission F31.81 [place] [address] [place] [address] 37903- 2945 May, Bipolar 2 disorder F31.81 ; Anxiety disorder, unspecified F41.9 and Nicotine dependence, unspecified, uncomplicated F17.200 [place] [address] [place] [address] 74559- 6932 Apr, [facility] [address] [place] [address] 96528- 6171 Apr, Bipolar 2 disorder F31.81 ; Anxiety disorder, unspecified F41.9 and Nicotine dependence, unspecified, uncomplicated F17.200 [place] [address], [place] [address]- 0236 Apr, Bipolar 2 disorder F31.81 ; Anxiety disorder, unspecified F41.9 and Nicotine dependence, unspecified, uncomplicated F17.200 [facility] [address], [place] [address]- 5267 Mar, [facility] [id number] [place] [address] 74046- 7466 January, [facility] [id number] [place] [address] 06243- 2637 Dec, Bipolar II disorder F31.81 [facility] [id number] [place] [address] 57275- 7721 Dec, [facility] [address] [place] [address] 28571- 7992 Nov, Bipolar 2 disorder F31.81 and Anxiety disorder, unspecified F41.9 [facility] [address], [place] [address]- 2644 Nov, Bipolar 2 disorder F31.81 and Anxiety disorder, unspecified F41.9 [facility] [address], [place] [address]- 2162 Nov, [facility] [address] [address]- 8432 Nov, [facility] [address], [place] [address]- 1468 Nov, Bipolar 2 disorder F31.81 and Anxiety disorder, unspecified F41.9 [facility] [address], [place] [address]- 0285 Nov, Bipolar 2 disorder F31.81 [facility] [address] [address]- 3486 Nov, [facility] [address] [place] [address] 53802- 1825 Nov, [facility] [address], [place] [address]- 5486 Oct, [facility] [address] [address]- 4336 Oct, [facility] [address], [place] [address]- 5406 Oct, [facility] [address] [place] [address] 89095- 3633 Oct, Bipolar 2 disorder F31.81 [facility] [address] [place] [address] 32241- 2016 Sep, [facility] [address] [address]- 7756 Sep, [facility] [address] [place] [address] 72859- 8385 Jul, Bipolar 2 disorder F31.81 [facility] [address] [address]- 3267 Jun, [facility] [id number] 2568 Jun, Bipolar 2 disorder 296.89 [facility] [address], [place] [address]- 3896 Jun, [facility] [address], [place] [address]- 4236 May, [facility] [id number], [place] [address]- 6171 Apr, Bipolar 2 disorder 296.89 [facility] [address], [place] [address]- 4366 Apr, Bipolar 2 disorder 296.89 and Tobacco use disorder 305.1 [facility] [address], [place] [address]- 8141 08 [place], 2015 Bipolar II disorder 296.89 and Nicotine dependence 305.1 [facility] [address] [facility] [id number] [place] [address]- 6773 January, [facility] [address] [facility] [id number] [place] [address]- 6111 Dec, [facility] [address] [facility] [id number] [place] 4242 Dec, [facility] [address] [facility] [id number] [place] [address]- 2079 Nov, [facility] [address] [facility] [id number] [place] [address]- 1138 Nov, [facility] [address] [facility] [id number] [place] [address]- 9168 Oct, [facility] [id number] [place] [address]- 8248 Oct, [facility] [address] [facility] [id number], [place] [address]- 4342 Sep, [facility] [address] [facility] [id number] [place] [address]- 1941 Sep, [facility] [address] [facility] [id number] [place] [address]- 6190 Sep, [facility] [address] [id number] [address]- 5660 Sep, [facility] [address] [facility] [id number], [place] [address]- 8052 Sep, [facility] [place] [facility] [address] [facility] [id number] [place] [address]- 3992 Sep, [facility] [place] [facility] [address] [facility] [id number] 3480 Sep, [facility] [place] [facility] [id number] 1605 Sep, [facility] [address] [facility] [id number] [place] 8084 Sep, [facility] [place] [facility] [address] [id number] [place] [address]- 4563 Aug, [facility] [place] [facility] [address] [id number] [place] [address]- 4691 Aug, [facility] [place] [facility] [address] [id number] [place] [address]- 2423 Aug, [facility] [place] [facility] [address] [id number] [place] [address]- 6261 Aug, [facility] [place] [facility] [address] [id number] [place] [address]- 8778 Jul, [facility] [place] [facility] [address] [id number] [place] [address]- 2537 Jul, [facility] [place] [facility] [address] [id number] [place] [address]- 5823 Jun, [facility] [place] [facility] [address] [id number] [place] [address]- 5356 Jun, [facility] [place] [facility] [address] [id number] [place] [address]- 3520 Jun, [facility] [place] [facility] [address] [id number] [place] [address]- 8013 Jun, [facility] [place] [facility] [address] [id number] [place] [address]- 6169 Jun, [facility] [place] [facility] [address] [id number] [place] [address]- 4400 May, [facility] [place] [facility] [address] [id number] [place] 2593 May, [facility] [place] [facility] [address] [id number] [place] [address]- 0486 Apr, [facility] [place] [facility] [address] [id number] [place] 5306 Apr, [facility] [place] [facility] [address] [id number] [place] [address]- 2007 Mar, [facility] [place] [facility] [address] [id number] [place] [address]- 8023 Mar, [facility] [place] [facility] [address] [id number] [place] [address]- 5438 January, [facility] [place] [facility] [address] [id number] [place] [address]- 6989 January, [facility] [place] [facility] [address] [id number] [place] [address]- 8458 Dec, [facility] [place] [facility] [address] [id number] [place] [address]- 5817 Dec, [facility] [place] [facility] [address] [id number] [place] [address]- 5335 Dec, [facility] [place] [facility] [address] [id number] [place] [address]- 0821 Dec, [facility] [place] [facility] [address] [id number] [place] [address]- 9916 Dec, [facility] [place] [facility] [address] [id number] [place] [address]- 2702 Dec, [facility] [place] [facility] [address] [id number] [place] [address]- 2172 Nov, [facility] [place] [facility] [address] [id number] [place] [address]- 2341 Nov, [facility] [place] [facility] [address] [id number] [place] [address]- 4801 Nov, [facility] [place] [facility] [address] [id number] [place] [address]- 8799 Nov, [facility] [place] [facility] [address] [id number] [place] [address]- 9005 Nov, [facility] [place] [facility] [address] [id number], [place] [address]- 8525 Nov, [facility] [address] [id number] [place] [address]- 2453 Nov, [facility] [place] [facility] [address] [id number] [place] [address]- 4181 Nov, [facility] [place] [facility] [address] [facility] [id number] [place] [address]- 4633 Oct, [facility] [place] [facility] [address] [id number] [place] [address]- 6332 Oct, [facility] [place] [facility] [address] [id number] [place] [address]- 8129 Aug, [facility] [place] [facility] [address] [id number] [place] [address]- 8470 Aug, [facility] [address] [facility] [id number] [place] [address]- 5954 Aug, [facility] [place] [facility] [address] [id number] [place] [address]- 4110 Aug, [facility] [place] [facility] [address] [facility] [id number] [place] [address]- 7433 Jul, [facility] [place] [facility] [address] [facility] [id number] [place] [address]- 7320 Jun, [facility] [place] [facility] [address] [id number] [place] [address]- 3754 Apr, [facility] [place] [facility] [address] [id number], [place] [address]- 9746 Apr, [facility] [place] [facility] [address] [id number] [place] [address]- 8105 Mar, [facility] [place] [facility] [address] [id number] [place] [address]- 4696 Nov, [facility] [place] [facility] [address] [facility] [id number], [place] [address]- 4645 Nov, [facility] [place] [facility] [address] [id number] [place] [address]- 0793 Nov, [facility] [address] [id number] [place] [address]- 6906 Nov, [facility] [place] [facility] [address] [id number] [place] [address]- 2546 Oct, [facility] [address] [id number] [place] [address]- 1385 Oct, [facility] [address] [id number] [place] [address]- 4309 Oct, [facility] [place] [facility] [address] [id number] [place] [address]- 1306 Sep, [facility] [address] [id number] [place] [address]- 6274 Sep, [facility] [address] [id number] [place] [address]- 3204 Aug, [facility] [address] [id number] [place] [address]- 9308 Aug, [facility] [address] [id number] [place] [address]- 1054 Jun, [facility] [place] [facility] [address] [id number] [place] [address]- 4187 Apr, [facility] [place] [facility] [address] [id number] [place] [address]- 5836 Apr, [facility] [place] [facility] [address] [id number] [place] [address]- 0938 Mar, [facility] [place] [facility] [address] [id number] [place] [address]- 2546 Mar, [facility] [place] [facility] [address] [id number] [place] [address]- 9184 January, [facility] [place] [facility] [address] [id number], [place] [address]- 3646 January, [facility] [address] [facility] [id number], [place] [address]- 7632 Dec, [facility] [address] [facility] [id number], [place] [address]- 7276 Nov, [facility] [address], [place] [address]- 9382 Nov, [facility] [address] [facility] [id number], [place] [address]- 6040 Oct, [facility] [address] [facility] [id number], [place] [address]- 0003 Oct, [facility] [address] [id number], [place] [address]- 4159 Sep, [facility] [address], [place] [address]- 3000 Aug, [facility] [address], [place] [address]- 0133 Aug, [facility] [address] 0235 Aug, [facility] [address], [place] [address]- 2952 Aug, [facility] [address], [place] [address]- 4143 Aug, [facility] [address], [place] [address]- 0469 Jul, [facility] [address], [place] [address]- 5975 Jul, [facility] [address], [place] [address]- 8530 Aug, IMMUNIZATIONS No Known Immunizations SOCIAL HISTORY Never Assessed REASON FOR VISIT Requests return call PLAN OF CARE VITAL SIGNS MEDICATIONS Medication Instructions Dosage Frequency Start Date End Date Duration Status Klonopin 0.5 MG Orally One tablet as [...]
--- OUTSIDE RECORDS SUMMARY | 2018-11-18 20:11 | XMS REPORT ---
Author Author HARJEET DUNHAM [facility] [employer] Address Unknown Phone Unavailable Care Team Providers Care Pickle Pumper Name Role Phone HARJEET DUNHAM Unavailable Allergies No Known Allergies Problems Problem Type Condition Code Onset Dates Condition Status Problem Bipolar 2 disorder F31.81 Active Medications No Known Medications Results No Known Results Summary Purpose [employer]ClinicalWorks Submission
--- OUTSIDE RECORDS SUMMARY | 2018-11-18 20:11 | XMS REPORT ---
Author Author BIANCA LIM Organization [facility] Address [address] [place] [address] Care Team Providers Care Casting Room Helper Name Role Phone BIANCA LIM Unavailable PROBLEMS Type Condition ICD9-CM Code [id number] Code Onset Dates Condition Status SNOMED Code Problem Anxiety disorder, unspecified type F41.9 Active 436705372 Problem Bipolar I disorder, current or most recent episode depressed, in partial remission F31.75 Active 058852393 Problem Nicotine dependence, unspecified, uncomplicated F17.200 Active 02371935 Problem Anxiety disorder, unspecified F41.9 Active 545326327 Problem Borderline personality disorder F60.3 Active 35877384 Problem Bipolar II disorder in full remission F31.81 Active [id number] ALLERGIES No Information ENCOUNTERS Encounter Location Date Diagnosis [facility] [id number] [place] [address] 28003- 0162 Apr, [facility] [id number] [place] [address] 78979- 4547 Dec, Anxiety disorder, unspecified F41.9 ; Borderline personality disorder F60.3 and Bipolar II disorder in full remission F31.81 [facility] [place] [id number] [place] [address] 76822- 1306 Nov, Bipolar I disorder, current or most recent episode depressed , in partial remission F31.75 ; Anxiety disorder, unspecified type F41.9 and Borderline personality disorder F60.3 [facility] [place] [id number] [place] [address] 71582- 1389 Nov, Bipolar I disorder, current or most recent episode depressed , in partial remission F31.75 ; Anxiety disorder, unspecified type F41.9 and Borderline personality disorder F60.3 [facility] [place] [id number] [place] [address] 28814- 6468 Nov, Anxiety disorder, unspecified F41.9 [facility] [place] [address] [address] Nov, Bipolar I disorder, current or most recent episode depressed , in partial remission F31.75 ; Anxiety disorder, unspecified type F41.9 and Borderline personality disorder F60.3 [facility] [id number] [id number] Nov, Bipolar II disorder in full remission F31.81 [facility] [place] [id number] [place] [address] 09967- 2199 Oct, Anxiety disorder, unspecified F41.9 [facility] [place] [id number] [place] [address] 36413- 3217 Sep, Anxiety disorder, unspecified F41.9 [facility] [place] [id number] [place] [address] 00329- 8983 Sep, [facility] [place] [id number] [place] [address] 02446- 1881 Aug, [facility] [place] [id number] [place] [address] 06416- 7410 Aug, Anxiety disorder, unspecified F41.9 [facility] [place] [address] [address] 4856 Aug, [facility] [place] [id number] [place] [address] 91314- 6404 Jul, Anxiety disorder, unspecified F41.9 ; Borderline personality disorder F60.3 and Bipolar II disorder in full remission F31.81 [facility] [place] [id number] [place] [address] 88242- 1966 Jul, Borderline personality disorder F60.3 and Anxiety disorder, unspecified F41.9 [facility] [place] [address] [address] 9540 Jul, [facility] [place] [id number] [address] 3090 Jun, Bipolar I disorder, current or most recent episode depressed , in partial remission F31.75 ; Anxiety disorder, unspecified type F41.9 and Borderline personality disorder F60.3 [facility] [place] [address] [address]- 7386 Jun, Anxiety disorder, unspecified F41.9 [facility] [place] [address] [place] [address] 17462- 6726 May, Bipolar I disorder, current or most recent episode depressed , in partial remission F31.75 ; Anxiety disorder, unspecified type F41.9 and Borderline personality disorder F60.3 [facility] [place] [address] [place] [address] 31941- 6229 May, [facility] [place] [address] [place] [address] 85681- 1542 May, Anxiety disorder, unspecified F41.9 ; Borderline personality disorder F60.3 and Bipolar II disorder in full remission F31.81 [facility] [place] [address] [place] [address] 06495- 9978 Apr, Anxiety disorder, unspecified F41.9 [facility] [place] [address] [address]- 4804 Apr, Anxiety disorder, unspecified F41.9 [facility] [place] [address] [address]- 5599 Mar, Anxiety disorder, unspecified F41.9 ; Borderline personality disorder F60.3 and Bipolar II disorder in full remission F31.81 [facility] [place] [address] [address]- 4174 Dec, Anxiety disorder, unspecified F41.9 [facility] [place] [address], [place] [address]- 0107 Nov, Anxiety disorder, unspecified F41.9 [facility] [place] [id number] [place] [address] 64247- 4809 Nov, Anxiety disorder, unspecified F41.9 ; Nicotine dependence, unspecified, uncomplicated F17.200 ; Borderline personality disorder F60.3 and Bipolar II disorder in full remission F31.81 [facility] [place] [address] [address]- 8895 Nov, [id number] [place] [address] 85243- 0311 Oct, Anxiety disorder, unspecified F41.9 [address] [address] [place] [address] 70961- 4365 Jul, [address] [address] [place] [address] 83470- 5614 Jul, Anxiety disorder, unspecified F41.9 ; Nicotine dependence, unspecified, uncomplicated F17.200 ; Borderline personality disorder F60.3 and Bipolar II disorder in full remission F31.81 [facility] [address] [address]- 8124 Jun, [facility] [address] [place] [address] 16476- 1794 Jun, Anxiety disorder, unspecified F41.9 ; Nicotine dependence, unspecified, uncomplicated F17.200 ; Borderline personality disorder F60.3 and Bipolar II disorder in full remission F31.81 [address] [address], [place] [address]- 3337 May, Bipolar 2 disorder F31.81 ; Anxiety disorder, unspecified F41.9 and Nicotine dependence, unspecified, uncomplicated F17.200 [address] [place] [address] [address]- 7937 Apr, [address] [address] [place] [address] 22548- 6838 Apr, Bipolar 2 disorder F31.81 ; Anxiety disorder, unspecified F41.9 and Nicotine dependence, unspecified, uncomplicated F17.200 [address] [address] [address] [address]- 3393 Apr, Bipolar 2 disorder F31.81 ; Anxiety disorder, unspecified F41.9 and Nicotine dependence, unspecified, uncomplicated F17.200 [facility] [place] [address] [address]- 7470 Mar, [facility] [place] [id number] [place] [address] 67294- 5576 January, [facility] [place] [id number] [place] [address] 16613- 1999 Dec, Bipolar II disorder F31.81 [facility] [place] [id number] [place] [address] 66561- 7216 Dec, [facility] [place] [id number] [place] [address] 14719- 2969 Nov, Bipolar 2 disorder F31.81 and Anxiety disorder, unspecified F41.9 [facility] [place] [id number] [place] [address] 45426- 4280 Nov, Bipolar 2 disorder F31.81 and Anxiety disorder, unspecified F41.9 [facility] [place] [address] [place] [address] 84278- 7391 Nov, [facility] [place] [address] [address]- 4081 Nov, [facility] [place] [address], [place] [address]- 0468 Nov, Bipolar 2 disorder F31.81 and Anxiety disorder, unspecified F41.9 [facility] [place] [address], [place] [address]- 1787 Nov, Bipolar 2 disorder F31.81 [facility] [place] [address] [address]- 6896 Nov, [facility] [id number] [place] [address] 17411- 4958 Nov, [facility] [place] [address], [place] [address]- 6213 Oct, [facility] [place] [address] [address]- 5606 Oct, [facility] [place] [address], [place] [address]- 6726 Oct, [facility] [place] [address] [place] [address] 06670- 5501 Oct, Bipolar 2 disorder F31.81 [facility] [place] [address] [address]- 5096 Sep, [facility] [place] [address], [place] [address]- 3276 Sep, [facility] [place] [address], [place] [address]- 2755 Jul, Bipolar 2 disorder F31.81 [facility] [place] [address], [place] [address]- 2959 Jun, [facility] [place] [address], [place] [address]- 8511 Jun, Bipolar 2 disorder 296.89 [facility] [place] [address], [place] [address]- 7506 Jun, [facility] [place] [address], [place] [address]- 9726 May, [facility] [place] [address], [place] [address]- 7253 Apr, Bipolar 2 disorder 296.89 [facility] [place] [address], [place] [address]- 0976 Apr, Bipolar 2 disorder 296.89 and Tobacco use disorder 305.1 [facility] [place] [address], [place] [address]- 6261 Mar, Bipolar II disorder 296.89 and Nicotine dependence 305.1 [facility] [address] [facility] [id number] [place] [address]- 8588 January, [facility] [place] [facility] [address] [facility] [id number] [place] [address]- 8576 Dec, [facility] [place] [facility] [address] [facility] [id number] [place] [address]- 8995 Dec, [facility] [place] [facility] [address] [id number] [place] [address]- 2782 Nov, [facility] [place] [facility] [address] [facility] [id number] [place] [address]- 3681 Nov, [facility] [place] [facility] [address] [facility] [id number] [place] [address]- 5367 Oct, [facility] [place] [facility] [id number] [address]- 7468 Oct, [facility] [address] [facility] [id number] [address]- 4043 Sep, [facility] [place] [facility] [address] [facility] [id number] [place] [address]- 2213 Sep, [facility] [place] [facility] [address] [facility] [id number] [place] [address]- 0139 Sep, [facility] [place] [facility] [address] [facility] [id number] [address]- 3835 Sep, [facility] [place] [facility] [address] [facility] [id number], [place] [address]- 8194 Sep, [facility] [place] [facility] [address] [facility] [id number] [place] [address]- 3114 Sep, [facility] [place] [facility] [address] [facility] [id number] [place] [address]- 7906 17 Sep, 2014 [facility] [place] [facility] [address] [facility] [id number] [place] 7526 Sep, [facility] [place] [facility] [address] [facility] [id number] [place] 2067 Sep, [facility] [place] [facility] [address] [id number] [place] [address]- 9033 Aug, [facility] [place] [facility] [address] [id number] [place] [address]- 1446 Aug, [facility] [place] [facility] [address] [id number] [place] [address]- 4492 Aug, [facility] [place] [facility] [address] [id number] [place] [address]- 2637 Aug, [facility] [place] [facility] [address] [id number] [place] [address]- 8908 Jul, [facility] [place] [facility] [address] [id number] [place] [address]- 2677 Jul, [facility] [place] [facility] [address] [id number] [place] [address]- 1210 Jun, [facility] [place] [facility] [address] [id number] [place] [address]- 8654 Jun, [facility] [place] [facility] [address] [id number] [place] [address]- 7644 Jun, [facility] [place] [facility] [address] [id number] [place] [address]- 5208 Jun, [facility] [place] [facility] [address] [id number] [place] [address]- 1065 Jun, [facility] [place] [facility] [address] [id number] [place] [address]- 7369 May, [facility] [place] [facility] [address] [id number] [place] [address]- 3258 May, [facility] [place] [facility] [address] [id number] [place] [address]- 7165 Apr, [facility] [place] [facility] [address] [id number] [place] 5088 Apr, [facility] [place] [facility] [address] [id number] [place] [address]- 2411 Mar, [facility] [place] [facility] [address] [id number] [place] [address]- 2563 Mar, [facility] [place] [facility] [address] [id number] [place] [address]- 9046 January, [facility] [place] [facility] [address] [id number] [place] [address]- 5272 January, [facility] [place] [facility] [address] [id number] [place] [address]- 2095 Dec, [facility] [place] [facility] [address] [id number] [place] [address]- 6920 Dec, [facility] [place] [facility] [address] [id number] [place] [address]- 4276 Dec, [facility] [place] [facility] [address] [id number] [place] [address]- 2264 Dec, [facility] [place] [facility] [address] [id number] [place] [address]- 4769 Dec, [facility] [place] [facility] [address] [id number] [place] [address]- 0690 Dec, [facility] [place] [facility] [address] [id number] [place] [address]- 7077 Nov, [facility] [place] [facility] [address] [id number] [place] [address]- 6796 Nov, [facility] [place] [facility] [address] [id number] [place] [address]- 7078 Nov, [facility] [place] [facility] [address] [id number] [place] [address]- 7287 Nov, [facility] [place] [facility] [address] [id number] [place] [address]- 0647 Nov, [facility] [place] [facility] [address] [id number] [place] [address]- 0486 Nov, [facility] [place] [facility] [address] [id number] [place] 9184 Nov, [facility] [place] [facility] [address] [id number] [place] [address]- 2816 Nov, [facility] [place] [facility] [address] [id number] [place] [address]- 9757 Oct, [facility] [place] [facility] [address] [id number] [place] [address]- 8906 Oct, [facility] [place] [facility] [address] [id number] [place] 2072 Aug, [facility] [place] [facility] [address] [id number] [place] 1064 Aug, [facility] [place] [facility] [address] [id number] [place] [address]- 9400 Aug, [facility] [place] [facility] [address] [id number] [place] [address]- 1568 Aug, [facility] [place] [facility] [address] [id number] [place] [address]- 7715 Jul, [facility] [place] [facility] [address] [id number] [place] [address]- 1557 Jun, [facility] [place] [facility] [address] [id number], [place] [address]- 9656 Apr, [facility] [place] [facility] [address] [id number], [place] [address]- 5182 Apr, [facility] [place] [facility] [address] [id number] [place] [address]- 1786 Mar, [facility] [place] [facility] [address] [id number] [place] [address]- 2890 Nov, [facility] [place] [facility] [address] [id number] [place] [address]- 3773 Nov, [facility] [place] [facility] [address] [id number] [place] [address]- 2546 Nov, [facility] [address] [id number] [place] [address]- 7846 Nov, [facility] [place] [facility] [address] [id number] [place] [address]- 2546 Oct, [facility] [address] [id number] [place] [address]- 2546 Oct, [facility] [place] [facility] [address] [id number] [place] [address]- 2546 Oct, [facility] [address] [id number] [place] [address]- 4156 Sep, [facility] [address] [id number] [place] [address]- 8756 Sep, [facility] [address] [id number] [place] [address]- 2546 Aug, [facility] [address] [id number] [place] [address]- 0809 Aug, [facility] [address] [id number] [place] [address]- 7916 Jun, [facility] [address] [id number] [place] [address]- 2546 Apr, [facility] [place] [facility] [address] [id number] [place] [address] Apr, [facility] [address] [id number] [place] [address] Mar, [facility] [place] [facility] [address] [id number] [place] [address] Mar, [facility] [place] [facility] [address] [id number] [place] [address] January, [facility] [place] [facility] [address] [id number] [place] [address] January, [facility] [place] [id number] [address] Dec, [facility] [place] [id number] [address] Nov, [facility] [place] [id number] [place] [address] Nov, [facility] [place] [id number] [place] [address] Oct, [facility] [place] [id number] [place] [address] Oct, [facility] [place] [id number] [place] [address] Sep, [facility] [place] [id number] [address] Aug, [facility] [place] [id number] [place] [address] Aug, [facility] [place] [id number] [place] [address] Aug, [facility] [place] [id number] [address] Aug, [facility] [place] [id number] [place] [address] Aug, [facility] [place] [id number] [place] [address] Jul, [facility] [place] [id number] [address] Jul, [facility] [place] [id number] [id number] Aug, IMMUNIZATIONS No Known Immunizations SOCIAL HISTORY Never Assessed REASON FOR VISIT BH f/u, Depression. PLAN OF CARE Activity Details Follow Up 2 Weeks Reason:depression VITAL SIGNS MEDICATIONS Unknown Medications RESULTS No Results PROCEDURES Procedure Date Ordered Result Body Site [facility] VISIT MENTAL HEALTH ESTAB PT 2017 Psychotherapy, patient &/family, 45 minutes, established patient 2017 INSTRUCTIONS MEDICATIONS ADMINISTERED No Known Medications MEDICAL (GENERAL) HISTORY Type Description Date Medical History chronic pain Medical History hypothyroidism Medical History HTN Medical History GERD Medical History DM type 2 non insulin dependant Medical History COPD
--- OUTSIDE RECORDS SUMMARY | 2018-11-18 20:11 | XMS REPORT ---
Author Author STACEY MAYO [facility] eClinicalWorks Address Unknown Phone Unavailable Care Team Providers Care Hide Spreader Name Role Phone STACEY MAYO CP Unavailable Allergies No Known Allergies Problems Problem Type Condition Code Onset Dates Condition Status Problem Anxiety disorder, unspecified F41.9 Active Problem Bipolar 2 disorder F31.81 Active Problem Nicotine dependence, unspecified, uncomplicated F17.200 Active Medications Medication Code System Code Instructions Start Date End Date Status Dosage Klonopin [facility] [address]-71 0.5 MG Orally Twice a day PRN anxiety Oct 30, 2014 1 tablet Results No Known Results Summary Purpose eClinicalWorks Submission
--- OUTSIDE RECORDS SUMMARY | 2018-11-18 20:11 | XMS REPORT ---
Author Author BERNARD PATRICIA Organization [facility] [employer] Address [address] [place] [address] Care Team Providers Care Check Clerk Name Role Phone BERNARD PATRICIA Unavailable PROBLEMS Type Condition ICD9-CM Code [id number] Code Onset Dates Condition Status SNOMED Code Problem Anxiety disorder, unspecified type F41.9 Active 749695710 Problem Bipolar I disorder, current or most recent episode depressed, in partial remission F31.75 Active 972692464 Problem Nicotine dependence, unspecified, uncomplicated F17.200 Active 93768245 Problem Anxiety disorder, unspecified F41.9 Active 914523058 Problem Borderline personality disorder F60.3 Active 17195104 Problem Bipolar II disorder in full remission F31.81 Active 14364487 ALLERGIES No Information SOCIAL HISTORY Never Assessed PLAN OF CARE VITAL SIGNS MEDICATIONS Unknown Medications RESULTS No Results PROCEDURES No Known procedures IMMUNIZATIONS No Known Immunizations MEDICAL (GENERAL) HISTORY Type Description Date Medical History chronic pain Medical History hypothyroidism Medical History HTN Medical History GERD Medical History DM type 2 non insulin dependant Medical History COPD
--- OUTSIDE RECORDS SUMMARY | 2018-11-18 20:11 | XMS REPORT ---
Author Author BIANCA LIM Organization [employer] Address Unknown Phone Unavailable Care Team Providers Care Event Lighting Specialist Name Role Phone BIANCA LIM CP Unavailable Allergies No Known Allergies Problems Problem Type Condition ICD-9 Code Onset Dates Condition Status Problem Tobacco use disorder 305.1 Active Assessment Bipolar 2 disorder 296.89 Active Problem Bipolar 2 disorder 296.89 Active Medications No Known Medications Procedures Procedure Coding System Code Date Psychotherapy, patient &/family, 30 minutes, established patient CPT-4 05239 Jun 22, 2015 [facility] VISIT MENTAL HEALTH ESTAB PT CPT-4 G0470 Jun 22, 2015 Results No Known Results Summary Purpose [employer] Submission
--- OUTSIDE RECORDS SUMMARY | 2018-11-18 20:11 | XMS REPORT ---
Author Author BERNARD PATRICIA [facility] e[employer] Address Unknown Phone Unavailable Care Team Providers Care Chronic Disease Manager Name Role Phone BERNARD PATRICIA Unavailable Allergies, Adverse Reactions, Alerts Substance Reaction Event Type Sulfacetamide Sodium Info Not Available Drug Allergy Penicillin V Potassium Info Not Available Drug Allergy Macrobid Info Not Available Drug Allergy Biaxin shortness of breath Drug Allergy Avelox shortness of breath Drug Allergy Desyrel halluinate Drug Allergy Problems Problem Type Condition Code Onset Dates Condition Status Assessment Bipolar II disorder in full remission F31.81 Active Problem Bipolar II disorder in full remission F31.81 Active Problem Nicotine dependence, unspecified, uncomplicated F17.200 Active Problem Borderline personality disorder F60.3 Active Assessment Nicotine dependence, unspecified, uncomplicated F17.200 Active Assessment Borderline personality disorder F60.3 Active Problem Anxiety disorder, unspecified F41.9 Active Assessment Anxiety disorder, unspecified F41.9 Active Medications Medication Code System Code Instructions Start Date End Date Status Dosage cetirizine [facility] [address]-33 10 mg Oct 30, 2014 1 Tablet by Oral route 1 time per day amlodipine [facility] [address]-19 10 mg Oct 30, 2014 1 Tablet by Oral route 1 time per day Toviaz [facility] [address]-79 8 mg February 20, 2014 take 1 tablet (8 mg) by oral route once daily Januvia [facility] [address]-77 100 mg February 22, 2012 1 Tablet by Oral route 1 time per day Duloxetine HCl [facility] 46988175386 60 MG TAKE 2 CAPSULES BY MOUTH ONCE DAILY Hydrocodone-Acetaminophen [facility] [address]-04 5-325 MG Orally 2 times a day 1 tablet as needed Cymbalta [facility] [address]-70 60 mg Orally Once a day take 2 capsule by Oral route 1 time per day fluticasone [facility] [address]-44 50 mcg/actuation Oct 30, 2014 1 Nasal [place] by Nasal route 2 times per day ea nostril levothyroxine [facility] 0 25 mcg February 20, 2014 take 1 tablet (25 mcg) by oral route once daily Aripiprazole [facility] 94581531535 15 MG TAKE 1 TABLET BY MOUTH ONCE DAILY Omeprazole [facility] [address]-72 20 mg Orally Once a day 1 capsule Metformin HCl [facility] [address]-83 500 MG Orally Twice a day 1 tablet with meals Klonopin [facility] [address]-53 0.5 MG Orally Twice a day PRN anxiety 1 tablet Sertraline HCl [facility] [address]-95 50 mg Orally Once a day 1 tablet cyclobenzaprine [facility] [address]-51 10 mg April 24, 2014 1 Tablet by Oral route 3 times per day PRN Isosorbide Mononitrate [facility] [address]-96 60 mg February 20, 2014 take 1 tablet (60 mg) by oral route once daily in the morning Abilify [facility] 20316987480 15 MG Orally Once a day take 1 tablet (15 mg) by oral route once daily Crestor [facility] [address]-53 5 mg February 22, 2012 1 Tablet by Oral route 1 time per day losartan [facility] 0 50 mg February 22, 2012 1 Tablet by Oral route 1 time per day Zafirlukast [facility] [address]-87 20 mg Oct 30, 2014 1 Tablet by Oral route 2 times per day Symbicort [facility] [address]-98 160-4.5 mcg/actuation Oct 30, 2014 2 puff by Inhalation route 2 times per day Farxiga [facility] [address]-10 5 MG Orally Once a day 1 tablet Aspirin [facility] [address]-76 325 mg Oct 30, 2014 1 Tablet by Oral route 1 time per day ProAir HFA [facility] [address]-35 90 mcg/actuation Oct 30, 2014 2 puffs by Inhalation route 3 times per day PRN Bumex [facility] [address]-53 1 MG Orally Once a day 1 tablet Procedures Procedure Coding System Code Date Office Visit, Est Pt., Level 2 CPT-4 36466 Jul 22, 2016 [facility] VISIT ESTABLISHED PATIENT CPT-4 G0467 Jul 22, 2016 Vital Signs Date/Time: Jul 22, 2016 Blood Pressure Systolic 100 mmHg Cardiac Monitoring Heart Rate 92 bpm Height 64 in Blood Pressure Diastolic 56 mmHg Results No Known Results Summary Purpose [employer] Submission
--- OUTSIDE RECORDS SUMMARY | 2018-11-18 20:12 | XMS REPORT ---
Author Author STACEY MAYO [facility] e[employer] Address Unknown Phone Unavailable Care Team Providers Care Oven Unloader Name Role Phone STACEY MAYO CP Unavailable Allergies No Known Allergies Problems Problem Type Condition Code Onset Dates Condition Status Problem Bipolar 2 disorder F31.81 Active Assessment Bipolar II disorder F31.81 Active Problem Anxiety disorder, unspecified F41.9 Active Medications Medication Code System Code Instructions Start Date End Date Status Dosage Abilify [facility] [address]-74 15 MG Orally Once a day Oct 30, 2014 take 1 tablet (15 mg) by oral route once daily Cymbalta [facility] [address]-65 60 mg Orally Once a day Oct 30, 2014 take 2 capsule by Oral route 1 time per day Results No Known Results Summary Purpose [employer] Submission
--- OUTSIDE RECORDS SUMMARY | 2018-11-18 20:12 | XMS REPORT ---
Author Author ANDERSON YADAV Organization [employer] Address Unknown Phone Unavailable Care Team Providers Care Fabric Stretcher Name Role Phone ANDERSON YADAV Unavailable Allergies No Known Allergies Problems Problem Type Condition Code Onset Dates Condition Status Problem Bipolar 2 disorder F31.81 Active Medications Medication Code System Code Instructions Start Date End Date Status Dosage Klonopin [facility] [address]-60 0.5 MG Orally Twice a day PRN anxiety Oct 30, 2014 1 tablet Results No Known Results Summary Purpose [employer] Submission
--- OUTSIDE RECORDS SUMMARY | 2018-11-18 20:12 | XMS REPORT ---
Author Author BERNARD PATRICIA [facility] Address [address] [place] [address] Care Team Providers Care Ekg Monitor Tech Name Role Phone BERNARD PATRICIA Unavailable PROBLEMS Type Condition ICD9-CM Code [id number] Code Onset Dates Condition Status SNOMED Code Problem Anxiety disorder, unspecified type F41.9 Active 659872726 Problem Bipolar I disorder, current or most recent episode depressed, in partial remission F31.75 Active 819275790 Problem Nicotine dependence, unspecified, uncomplicated F17.200 Active 87443999 Problem Anxiety disorder, unspecified F41.9 Active 623332041 Problem Borderline personality disorder F60.3 Active 12943789 Problem Bipolar II disorder in full remission F31.81 Active 83897804 ALLERGIES No Information ENCOUNTERS Encounter Location Date Diagnosis [place] [id number], [place] [address] Dec, Anxiety disorder, unspecified F41.9 ; Borderline personality disorder F60.3 and Bipolar II disorder in full remission F31.81 [place] [id number] [address] Nov, Bipolar I disorder, current or most recent episode depressed , in partial remission F31.75 ; Anxiety disorder, unspecified type F41.9 and Borderline personality disorder F60.3 [facility] [address], [place] [address] Nov, Bipolar I disorder, current or most recent episode depressed , in partial remission F31.75 ; Anxiety disorder, unspecified type F41.9 and Borderline personality disorder F60.3 [facility] [id number] [address] Nov, Anxiety disorder, unspecified F41.9 [facility] [id number] [address] Nov, Bipolar I disorder, current or most recent episode depressed , in partial remission F31.75 ; Anxiety disorder, unspecified type F41.9 and Borderline personality disorder F60.3 [facility] [place] [address] [facility] [id number] [place] [id number] Nov, Bipolar II disorder in full remission F31.81 [facility] [address], [place] [address] Oct, Anxiety disorder, unspecified F41.9 [facility] [id number], [place] [address] Sep, Anxiety disorder, unspecified F41.9 [facility] [id number], [place] [address] Sep, [facility] [address], [place] [address] Aug, [facility] [address], [place] [address] Aug, Anxiety disorder, unspecified F41.9 [facility] [address], [place] [address] Aug, [facility] [address], [place] [address] Jul, Anxiety disorder, unspecified F41.9 ; Borderline personality disorder F60.3 and Bipolar II disorder in full remission F31.81 [facility] [id number], [place] [address] Jul, Borderline personality disorder F60.3 and Anxiety disorder, unspecified F41.9 [facility] [id number] [address] Jul, [facility] [id number] [address] Jun, Bipolar I disorder, current or most recent episode depressed , in partial remission F31.75 ; Anxiety disorder, unspecified type F41.9 and Borderline personality disorder F60.3 [facility] [id number] [place] [address]77- 9821 Jun, Anxiety disorder, unspecified F41.9 [facility] [id number] [place] [address]20- 2842 May, Bipolar I disorder, current or most recent episode depressed , in partial remission F31.75 ; Anxiety disorder, unspecified type F41.9 and Borderline personality disorder F60.3 [facility] [id number] [place] [address] 31138- 4851 May, [facility] [id number] [place] [address] 32799- 7761 May, Anxiety disorder, unspecified F41.9 ; Borderline personality disorder F60.3 and Bipolar II disorder in full remission F31.81 [place] [id number] [place] [address]- 9303 Apr, Anxiety disorder, unspecified F41.9 [place] [id number] [place] [address] 26086- 3465 Apr, Anxiety disorder, unspecified F41.9 [facility] [id number] [place] [address] 22926- 3522 Mar, Anxiety disorder, unspecified F41.9 ; Borderline personality disorder F60.3 and Bipolar II disorder in full remission F31.81 [facility] [id number] [place] [address] 98190- 2484 Dec, Anxiety disorder, unspecified F41.9 [facility] [id number] [place] [address] 67503- 9724 Nov, Anxiety disorder, unspecified F41.9 [facility] [address] [place] [address] 79937- 6679 Nov, Anxiety disorder, unspecified F41.9 ; Nicotine dependence, unspecified, uncomplicated F17.200 ; Borderline personality disorder F60.3 and Bipolar II disorder in full remission F31.81 [place] [address], [place] [address] Nov, [facility] [address], [place] [address] 1171 Oct, Anxiety disorder, unspecified F41.9 [place] [id number] [place] [address] 14211- 3036 Jul, [place] [id number] [place] [address] 84882- 8221 Jul, Anxiety disorder, unspecified F41.9 ; Nicotine dependence, unspecified, uncomplicated F17.200 ; Borderline personality disorder F60.3 and Bipolar II disorder in full remission F31.81 [place] [id number] [place] [address] 38793- 4906 Jun, [place] [id number] [place] [address] 52840- 3253 Jun, Anxiety disorder, unspecified F41.9 ; Nicotine dependence, unspecified, uncomplicated F17.200 ; Borderline personality disorder F60.3 and Bipolar II disorder in full remission F31.81 [place] [address], [place] [address] May, Bipolar 2 disorder F31.81 ; Anxiety disorder, unspecified F41.9 and Nicotine dependence, unspecified, uncomplicated F17.200 [place] [address], [place] [address]- [address] Apr, [place] [address] [place] [address] [id number] [place] [address] 96052- 9393 Apr, Bipolar 2 disorder F31.81 ; Anxiety disorder, unspecified F41.9 and Nicotine dependence, unspecified, uncomplicated F17.200 [place] [address], [place] [address]44 Apr, Bipolar 2 disorder F31.81 ; Anxiety disorder, unspecified F41.9 and Nicotine dependence, unspecified, uncomplicated F17.200 [facility] [id number] [place] [address] 07291- 7276 Mar, [facility] [id number] [place] [address] 82171- 3166 January, [facility] [id number] [place] [address] 04533- 2766 Dec, Bipolar II disorder F31.81 [facility] [id number] [place] [address] 89642 2546 Dec, [facility] [id number] [place] [address] 49604- 6766 Nov, Bipolar 2 disorder F31.81 and Anxiety disorder, unspecified F41.9 [facility] [id number] [place] [address] 00690- 6134 Nov, Bipolar 2 disorder F31.81 and Anxiety disorder, unspecified F41.9 [facility] [id number] [place] [address] 85567- 0628 Nov, [facility] [id number] [place] [address] 78630- 9316 Nov, [facility] [id number] [place] [address] 20821- 6103 Nov, Bipolar 2 disorder F31.81 and Anxiety disorder, unspecified F41.9 [facility] [id number] [place] [address] 55708 2548 Nov, Bipolar 2 disorder F31.81 [facility] [id number] [place] [address] 28240- 4406 Nov, [facility] [address], [place] [address]- 2546 Nov, [facility] [id number] [place] [address] 58694- 8919 Oct, [facility] [address] [address] Oct, [facility] [id number] [place] [address] 76213- 4452 Oct, [facility] [id number] [place] [address] 66920- 0926 Oct, Bipolar 2 disorder F31.81 [facility] [id number] [place] [address] 87829- 5580 Sep, [facility] [id number] [place] [address] 22424- 0714 Sep, [facility] [id number] [place] [address] 73031- 5366 Jul, Bipolar 2 disorder F31.81 [facility] [id number] [place] [address] 95855- 6407 Jun, [facility] [id number] [place] [address] 55877- 7392 Jun, Bipolar 2 disorder 296.89 [facility] [id number] [place] [address] 532726- 2423 Jun, [facility] [address], [place] [address]- 1118 May, [facility] [id number] [place] [address] 56361- 5209 Apr, Bipolar 2 disorder 296.89 [facility] [address] 6[address] Apr, Bipolar 2 disorder 296.89 and Tobacco use disorder 305.1 [facility] [id number] [place] [address] 65291- 4746 Mar, Bipolar II disorder 296.89 and Nicotine dependence 305.1 [facility] [id number] [place] [address] 80335- 9701 January, [facility] [place] [facility] [address] [id number] [place] [address]- 0551 Dec, [facility] [place] [facility] [address] [id number] [place] [address]- 8999 Dec, [facility] [place] [facility] [address] [id number] [place] [address]- 9861 Nov, [facility] [place] [facility] [address] [id number] [place] [address]- 3701 Nov, [facility] [place] [facility] [address] [id number] [place] [address]- 0679 Oct, [facility] [place] [facility] [address] [id number] [place] [address]- 9567 Oct, [facility] [place] [facility] [address] [id number] [place] [address]- 0923 Sep, [facility] [place] [facility] [address] [id number] [place] [address]- 8902 Sep, [facility] [place] [facility] [address] [id number] [place] [address]- 6047 Sep, [facility] [place] [facility] [address] [id number] [place] [address]- 5751 Sep, [facility] [place] [facility] [address] [id number] [place] [address]- 9575 Sep, [facility] [place] [facility] [address] [id number] [place] [address]- 6211 18 Sep, 2014 [facility] [place] [facility] [address] [id number] [place] [address]- 6045 17 Sep, 2014 [facility] [place] [facility] [address] [id number] [place] [address]- 9380 Sep, [facility] [place] [facility] [address] [id number] [place] [address] Sep, [facility] [place] [facility] [address] [id number] [place] [address]- 6703 Aug, [facility] [place] [facility] [address] [id number] [place] [address]- 7110 Aug, [facility] [place] [facility] [address] [id number] [place] [address]- 7633 Aug, [facility] [place] [facility] [address] [id number] [place] [address]- 9127 Aug, [facility] [place] [facility] [address] [id number] [place] [address]- 9872 Jul, [facility] [place] [facility] [address] [id number] [place] [address]- 4490 Jul, [facility] [place] [facility] [address] [id number] [place] [address]- 3790 16 Jun, 2014 [facility] [place] [facility] [address] [id number] [place] [address]- 3436 16 Jun, 2014 [facility] [place] [facility] [address] [id number] [place] [address]- 8104 Jun, [facility] [place] [facility] [address] [id number] [place] [address]- 1452 Jun, [facility] [place] [facility] [address] [id number] [place] [address]- 8405 Jun, [facility] [place] [facility] [address] [id number] [place] [address]- 9113 May, [facility] [place] [facility] [address] [id number] [place] [address]- 9476 May, [facility] [place] [facility] [address] [id number] [place] [address]- 3367 Apr, [facility] [place] [facility] [address] [id number] [place] [address]- 9945 Apr, [facility] [place] [facility] [address] [id number] [place] [address]- 6598 Mar, [facility] [place] [facility] [address] [id number] [place] [address]- 8050 Mar, [facility] [place] [facility] [address] [id number] [place] [address]- 3507 January, [facility] [place] [facility] [address] [id number] [place] [address]- 3854 January, [facility] [place] [facility] [address] [id number] [place] [address]- 2933 Dec, [facility] [place] [facility] [address] [id number] [place] [address]- 0306 Dec, [facility] [place] [facility] [address] [id number] [place] [address]- 3123 Dec, [facility] [place] [facility] [address] [id number] [place] [address]- 4467 Dec, [facility] [place] [facility] [address] [id number] [place] [address]- 0410 Dec, [facility] [place] [facility] [address] [id number] [place] [address]- 2436 Dec, [facility] [place] [facility] [address] [id number] [place] [address]- 9910 Nov, [facility] [place] [facility] [address] [id number] [place] [address]- 5957 Nov, [facility] [place] [facility] [address] [id number] [place] [address]- 0600 Nov, [facility] [place] [facility] [address] [id number] [place] [address]- 4379 Nov, [facility] [place] [facility] [address] [id number] [place] [address]- 8155 Nov, [facility] [place] [facility] [address] [id number] [place] [address]- 3146 Nov, [facility] [place] [facility] [address] [id number], [place] [address]- 5095 Nov, [facility] [address] [id number] [place] [address]- 0181 Nov, [facility] [place] [facility] [address] [id number] [place] [address]- 0509 Oct, [facility] [place] [facility] [address] [facility] [id number] [place] [address]- 7451 Oct, [facility] [place] [facility] [address] [id number] [place] [address]- 0135 Aug, [facility] [place] [facility] [address] [id number] [place] [address]- 0159 Aug, [facility] [place] [facility] [address] [facility] [facility] [id number] [place] [address]- 7458 Aug, [facility] [place] [facility] [address] [facility] [facility] [id number] [place] [address]- 0554 Aug, [facility] [place] [facility] [address] [facility] [facility] [id number] [place] [address]- 3228 Jul, [facility] [place] [facility] [address] [facility] [facility] [id number], [place] [address]- 9353 Jun, [facility] [place] [facility] [address] [facility] [facility] [id number] [place] [address]- 9805 Apr, [facility] [place] [facility] [address] [facility] [facility] [id number], [place] [address]- 4110 Apr, [facility] [place] [facility] [address] [facility] [address] [facility] [id number], [place] [address]- 8224 Mar, [facility] [place] [facility] [address] [id number], [place] [address]- 8111 Nov, [facility] [place] [facility] [address] [facility] [address] [facility] [id number], [place] [address]- 5183 Nov, [facility] [place] [facility] [address] [facility] [facility] [id number], [place] [address]- 7092 Nov, [facility] [place] [facility] [address] [id number] [place] [address]- 2546 Nov, [facility] [place] [facility] [address] [id number] [place] [address]- 0266 Oct, [facility] [place] [facility] [address] [id number] [place] [address]- 2546 Oct, [facility] [place] [facility] [address] [id number] [place] [address]- 2546 Oct, [facility] [place] [facility] [address] [id number] [place] [address]- 2546 Sep, [facility] [place] [facility] [address] [id number] [place] [address]- 6256 Sep, [facility] [place] [facility] [address] [id number] [place] [address]- 2546 Aug, [facility] [place] [facility] [address] [id number] [place] [address]- 5386 Aug, [facility] [place] [facility] [address] [id number] [place] [address]- 7529 Jun, [facility] [place] [facility] [address] [id number] [place] [address]- 5006 Apr, [facility] [place] [facility] [address] [id number] [place] [address]- 2546 Apr, [facility] [place] [facility] [address] [id number] [place] [address]- 2546 Mar, [facility] [place] [facility] [address] [id number] [place] [address]- 2546 Mar, [facility] [place] [facility] [address] [id number] [place] [address]- 2546 January, [facility] [place] [facility] [address] [id number] [place] [address]- 2546 January, [facility] [place] [facility] [address] [id number] [place] [address]- 6526 Dec, [facility] [id number] [address]- 6305 Nov, [facility] [address], [place] [address]- 3116 Nov, [facility] [address], [place] [address]- 0236 Oct, [facility] [id number], [place] [address]- 4166 Oct, [facility] [address], [place] [address]- 6056 Sep, [facility] [id number] [place] [address] 74364- 1846 Aug, [facility] [address], [place] [address]- 9526 Aug, [facility] [address], [place] [address]- 2791 Aug, [facility] [address], [place] [address]- 2175 Aug, [facility] [address], [place] [address]- 2093 Aug, [facility] [address], [place] [address]- 1915 Jul, [facility] [address], [place] [address]- 4683 Jul, [facility] [id number] [address]- 2192 Aug, IMMUNIZATIONS No Known Immunizations SOCIAL HISTORY Never Assessed REASON FOR VISIT klonopin refill PLAN OF CARE VITAL SIGNS MEDICATIONS Medication [...]
--- OUTSIDE RECORDS SUMMARY | 2018-11-18 20:12 | XMS REPORT ---
Author Author BIANCA LIM Organization [facility] Address [address] [place] [address] Care Team Providers Care Head Track Coach Name Role Phone BIANCA LIM Unavailable PROBLEMS Type Condition ICD9-CM Code [id number] Code Onset Dates Condition Status SNOMED Code Problem Anxiety disorder, unspecified type F41.9 Active 265632174 Problem Bipolar I disorder, current or most recent episode depressed, in partial remission F31.75 Active 812309571 Problem Nicotine dependence, unspecified, uncomplicated F17.200 Active 85804330 Problem Anxiety disorder, unspecified F41.9 Active 469297744 Problem Borderline personality disorder F60.3 Active 07952763 Problem Bipolar II disorder in full remission F31.81 Active 52919431 ALLERGIES No Information ENCOUNTERS Encounter Location Date Diagnosis [facility] [id number] [place] [address] 32862- 2694 January, [facility] [id number] [place] [address] 87528- 0416 Dec, Anxiety disorder, unspecified F41.9 ; Borderline personality disorder F60.3 and Bipolar II disorder in full remission F31.81 [facility] [id number] [place] [address] 26065- 9316 Nov, Bipolar I disorder, current or most recent episode depressed , in partial remission F31.75 ; Anxiety disorder, unspecified type F41.9 and Borderline personality disorder F60.3 [facility] [id number] [place] [address] 52033- 0439 Nov, Bipolar I disorder, current or most recent episode depressed , in partial remission F31.75 ; Anxiety disorder, unspecified type F41.9 and Borderline personality disorder F60.3 [facility] [id number] [place] [address] 01261- 1211 Nov, Anxiety disorder, unspecified F41.9 [facility] [address] [address] 73[address] Nov, Bipolar I disorder, current or most recent episode depressed , in partial remission F31.75 ; Anxiety disorder, unspecified type F41.9 and Borderline personality disorder F60.3 [facility] [place] [id number] [id number] Nov, Bipolar II disorder in full remission F31.81 [facility] [id number] [place] [address] 14485- 9883 Oct, Anxiety disorder, unspecified F41.9 [facility] [id number] [place] [address] 45695- 5325 Sep, Anxiety disorder, unspecified F41.9 [facility] [id number] [place] [address] 17271- 5472 Sep, [facility] [id number] [place] [address] 04831- 3443 Aug, [facility] [id number] [place] [address] 26504- 9872 Aug, Anxiety disorder, unspecified F41.9 [facility] [address] [address] 6321 Aug, [facility] [id number] [place] [address] 08409- 5135 Jul, Anxiety disorder, unspecified F41.9 ; Borderline personality disorder F60.3 and Bipolar II disorder in full remission F31.81 [facility] [id number] [place] [address] 39741- 3949 Jul, Borderline personality disorder F60.3 and Anxiety disorder, unspecified F41.9 [facility] [address] [address] 24[address] Jul, [facility] [id number] [address] 2369 Jun, Bipolar I disorder, current or most recent episode depressed , in partial remission F31.75 ; Anxiety disorder, unspecified type F41.9 and Borderline personality disorder F60.3 [facility] [address] [address] 6[address] Jun, Anxiety disorder, unspecified F41.9 [facility] [id number] [place] [address] 04842- 6445 May, Bipolar I disorder, current or most recent episode depressed , in partial remission F31.75 ; Anxiety disorder, unspecified type F41.9 and Borderline personality disorder F60.3 [facility] [id number] [place] [address] 13019- 8038 May, [facility] [id number] [place] [address] 88122- 4369 May, Anxiety disorder, unspecified F41.9 ; Borderline personality disorder F60.3 and Bipolar II disorder in full remission F31.81 [facility] [id number] [place] [address] 26156- 4275 Apr, Anxiety disorder, unspecified F41.9 [facility] [address] [address] 0277 Apr, Anxiety disorder, unspecified F41.9 [facility] [address] [address] 2426 Mar, Anxiety disorder, unspecified F41.9 ; Borderline personality disorder F60.3 and Bipolar II disorder in full remission F31.81 [facility] [address] [address]- 3968 Dec, Anxiety disorder, unspecified F41.9 [facility] [address] [address]- 2652 Nov, Anxiety disorder, unspecified F41.9 [facility] [id number] [place] [address] 10648- 0549 Nov, Anxiety disorder, unspecified F41.9 ; Nicotine dependence, unspecified, uncomplicated F17.200 ; Borderline personality disorder F60.3 and Bipolar II disorder in full remission F31.81 [facility] [address] [address]- 8536 Nov, [id number] [place] [address] 33495- 7877 Oct, Anxiety disorder, unspecified F41.9 [address] [place] [id number] [place] [address] 41265- 3916 Jul, [place] [id number] [place] [address] 82604- 8821 Jul, Anxiety disorder, unspecified F41.9 ; Nicotine dependence, unspecified, uncomplicated F17.200 ; Borderline personality disorder F60.3 and Bipolar II disorder in full remission F31.81 [facility] [address] [address]- 4540 Jun, [facility] [id number] [place] [address] 38729- 5241 Jun, Anxiety disorder, unspecified F41.9 ; Nicotine dependence, unspecified, uncomplicated F17.200 ; Borderline personality disorder F60.3 and Bipolar II disorder in full remission F31.81 [place] [address] [address]- 0437 May, Bipolar 2 disorder F31.81 ; Anxiety disorder, unspecified F41.9 and Nicotine dependence, unspecified, uncomplicated F17.200 [address] [address] [address]- 3420 Apr, [place] [id number] [place] [address] 65179- 1251 Apr, Bipolar 2 disorder F31.81 ; Anxiety disorder, unspecified F41.9 and Nicotine dependence, unspecified, uncomplicated F17.200 [place] [address] [address]- 8065 Apr, Bipolar 2 disorder F31.81 ; Anxiety disorder, unspecified F41.9 and Nicotine dependence, unspecified, uncomplicated F17.200 [facility] [address] [address]- 2903 Mar, [facility] [id number] [place] [address] 29909- 8076 January, [facility] [id number] [place] [address] 20215- 9541 Dec, Bipolar II disorder F31.81 [facility] [id number] [place] [address] 89360- 3686 Dec, [facility] [id number] [place] [address] 20975- 3004 Nov, Bipolar 2 disorder F31.81 and Anxiety disorder, unspecified F41.9 [facility] [id number] [place] [address] 78851- 9794 Nov, Bipolar 2 disorder F31.81 and Anxiety disorder, unspecified F41.9 [facility] [id number] [place] [address] 05866- 9743 Nov, [facility] [address] [address]- 9903 Nov, [facility] [address] [address]- 6452 Nov, Bipolar 2 disorder F31.81 and Anxiety disorder, unspecified F41.9 [facility] [address], [place] [address]- 8733 Nov, Bipolar 2 disorder F31.81 [facility] [address] [address]- 4376 Nov, [facility] [id number] [place] [address] 33253- 1414 Nov, [facility] [address], [place] [address]- 0573 Oct, [facility] [address] [address]- 8226 Oct, [facility] [address] [address]- 6006 Oct, [facility] [id number] [place] [address] 05933- 8330 Oct, Bipolar 2 disorder F31.81 [facility] [address] [place] [address]- 4356 Sep, [facility] [address] [address]- 0966 Sep, [facility] [address] [address]- 9233 Jul, Bipolar 2 disorder F31.81 [facility] [address] [address]- 9539 Jun, [facility] [address] [address]- 7487 Jun, Bipolar 2 disorder 296.89 [facility] [address] [address]- 2406 Jun, [facility] [address] [address]- 7506 May, [facility] [address] [address]- 3354 Apr, Bipolar 2 disorder 296.89 [facility] [address], [place] [address]- 6526 Apr, Bipolar 2 disorder 296.89 and Tobacco use disorder 305.1 [facility] [address], [place] [address]- 0566 Mar, Bipolar II disorder 296.89 and Nicotine dependence 305.1 [facility] [address] [facility] [id number] [place] [address]- 8392 January, [facility] [place] [facility] [address] [facility] [id number] [place] [address]- 0999 Dec, [facility] [place] [facility] [address] [facility] [id number] [place] [address]- 2136 Dec, [facility] [place] [facility] [address] [id number] [place] [address]- 2025 Nov, [facility] [place] [facility] [address] [facility] [id number] [place] [address]- 9611 Nov, [facility] [place] [facility] [address] [facility] [id number] [place] [address]- 0098 Oct, [facility] [place] [facility] [id number] [place] [address]- 2323 Oct, [facility] [address] [facility] [id number] [address]- 9281 Sep, [facility] [place] [facility] [address] [facility] [id number] [place] [address]- 8939 Sep, [facility] [place] [facility] [address] [facility] [id number] [place] [address]- 9024 Sep, [facility] [place] [facility] [address] [facility] [id number] [address]- 9392 Sep, [facility] [place] [facility] [address] [facility] [id number] [address]- 9115 Sep, [facility] [place] [facility] [address] [facility] [id number] [place] [address]- 6881 Sep, [facility] [place] [facility] [address] [facility] [id number] [place] [address]- 9758 17 Sep, 2014 [facility] [place] [facility] [address] [facility] [id number] [place] 5002 Sep, [facility] [place] [facility] [address] [facility] [id number] [place] 0049 Sep, [facility] [place] [facility] [address] [id number] [place] [address]- 3526 Aug, [facility] [place] [facility] [address] [id number] [place] [address]- 2956 Aug, [facility] [place] [facility] [address] [id number] [place] [address]- 0830 Aug, [facility] [place] [facility] [address] [id number] [place] [address]- 4125 Aug, [facility] [place] [facility] [address] [id number] [place] [address]- 6664 Jul, [facility] [place] [facility] [address] [id number] [place] [address]- 3624 Jul, [facility] [place] [facility] [address] [id number] [place] [address]- 1046 Jun, [facility] [place] [facility] [address] [id number] [place] [address]- 4343 Jun, [facility] [place] [facility] [address] [id number] [place] [address]- 7507 Jun, [facility] [place] [facility] [address] [id number] [place] [address]- 6123 Jun, [facility] [place] [facility] [address] [id number] [place] [address]- 2076 Jun, [facility] [place] [facility] [address] [id number] [place] [address]- 4951 May, [facility] [place] [facility] [address] [id number] [place] [address]- 8877 May, [facility] [place] [facility] [address] [id number] [place] [address]- 6983 Apr, [facility] [place] [facility] [address] [id number] [place] 4000 Apr, [facility] [place] [facility] [address] [id number] [place] [address]- 3399 Mar, [facility] [place] [facility] [address] [id number] [place] [address]- 8051 Mar, [facility] [place] [facility] [address] [id number] [place] [address]- 5481 January, [facility] [place] [facility] [address] [id number] [place] [address]- 8899 January, [facility] [place] [facility] [address] [id number] [place] [address]- 8203 Dec, [facility] [place] [facility] [address] [id number] [place] [address]- 9286 Dec, [facility] [place] [facility] [address] [id number] [place] [address]- 2285 Dec, [facility] [place] [facility] [address] [id number] [place] [address]- 9574 Dec, [facility] [place] [facility] [address] [id number] [place] [address]- 8808 Dec, [facility] [place] [facility] [address] [id number] [place] [address]- 6260 Dec, [facility] [place] [facility] [address] [id number] [place] [address]- 1437 Nov, [facility] [place] [facility] [address] [id number] [place] [address]- 9392 Nov, [facility] [place] [facility] [address] [id number] [place] [address]- 0986 Nov, [facility] [place] [facility] [address] [id number] [place] [address]- 0956 Nov, [facility] [place] [facility] [address] [id number] [place] [address]- 8597 Nov, [facility] [place] [facility] [address] [id number] [place] [address]- 3526 Nov, [facility] [place] [facility] [address] [id number] [place] 1546 Nov, [facility] [place] [facility] [address] [id number] [place] [address]- 5887 Nov, [facility] [place] [facility] [address] [id number] [place] [address]- 7304 Oct, [facility] [place] [facility] [address] [id number] [place] [address]- 1152 Oct, [facility] [place] [facility] [address] [id number] [place] 2259 Aug, [facility] [place] [facility] [address] [id number] [place] 0655 Aug, [facility] [place] [facility] [address] [id number] [place] [address]- 8440 Aug, [facility] [place] [facility] [address] [id number] [place] [address]- 6857 Aug, [facility] [place] [facility] [address] [id number] [place] [address]- 6458 Jul, [facility] [place] [facility] [address] [id number] [place] [address]- 1435 Jun, [facility] [place] [facility] [address] [id number], [place] [address]- 4165 Apr, [facility] [place] [facility] [address] [id number], [place] [address]- 2091 Apr, [facility] [place] [facility] [address] [id number] [place] [address]- 1125 Mar, [facility] [place] [facility] [address] [id number] [place] [address]- 9011 Nov, [facility] [place] [facility] [address] [id number] [place] [address]- 7263 Nov, [facility] [place] [facility] [address] [id number] [place] [address]- 2546 Nov, [facility] [address] [id number] [place] [address]- 4636 Nov, [facility] [place] [facility] [address] [id number] [place] [address]- 2546 Oct, [facility] [address] [id number] [place] [address]- 2546 Oct, [facility] [place] [facility] [address] [id number] [place] [address]- 2546 Oct, [facility] [address] [id number] [place] [address]- 9186 Sep, [facility] [address] [id number] [place] [address]- 0316 Sep, [facility] [address] [id number] [place] [address]- 2546 Aug, [facility] [address] [id number] [place] [address]- 3711 Aug, [facility] [address] [id number] [place] [address]- 8446 Jun, [facility] [address] [id number] [place] [address]- 2546 Apr, [facility] [place] [facility] [address] [id number] [place] [address]- 2546 Apr, [facility] [address] [id number] [place] [address]- 2546 Mar, [facility] [place] [facility] [address] [id number] [place] [address]- 2546 Mar, [facility] [place] [facility] [address] [id number] [place] [address]- 2546 January, [facility] [place] [facility] [address] [id number] [place] [address]- 4972 January, [facility] [address] [address]- 4692 Dec, [facility] [address] [address]- 0404 Nov, [facility] [address] [address]- 9055 Nov, [facility] [id number] [place] [address] 64456- 1527 Oct, [facility] [address] [address]- 1512 Oct, [facility] [id number] [place] [address] 84549- 8341 Sep, [facility] [id number] [address]- 3068 Aug, [facility] [address] [address]- 1559 Aug, [facility] [address] [address]- 7833 Aug, [facility] [address] [address]- 6939 Aug, [facility] [address] [address]- 3558 Aug, [facility] [address], [place] [address]- 2775 Jul, [facility] [address] [address]- 4827 Jul, [facility] [address] [address] 9360 Aug, IMMUNIZATIONS No Known Immunizations SOCIAL HISTORY Never Assessed REASON FOR VISIT fu, Depression. PLAN OF CARE Activity Details Follow Up 2 Weeks Reason:depression VITAL SIGNS MEDICATIONS Unknown Medications RESULTS No Results PROCEDURES Procedure Date Ordered Result Body Site [facility] VISIT MENTAL HEALTH ESTAB PT May 29, 2017 Psychotherapy, patient &/family, 30 minutes, established patient May 29, 2017 INSTRUCTIONS MEDICATIONS ADMINISTERED No Known Medications MEDICAL (GENERAL) HISTORY Type Description Date Medical History chronic pain Medical History hypothyroidism Medical History HTN Medical History GERD Medical History DM type 2 non insulin dependant Medical History COPD
--- OUTSIDE RECORDS SUMMARY | 2018-11-18 20:13 | XMS REPORT ---
Author Author BERNARD PATRICIA [facility] Address [address] [place] [address] Care Team Providers Care Modern Languages Professor Name Role Phone JOAN PATRICIAAGUS Unavailable PROBLEMS Type Condition ICD9-CM Code CXY98-GD Code Onset Dates Condition Status SNOMED Code Problem Anxiety disorder, unspecified type F41.9 Active 827261182 Problem Bipolar I disorder, current or most recent episode depressed, in partial remission F31.75 Active 890300256 Problem Nicotine dependence, unspecified, uncomplicated F17.200 Active 38428373 Problem Anxiety disorder, unspecified F41.9 Active 397836250 Problem Borderline personality disorder F60.3 Active 85255946 Problem Bipolar II disorder in full remission F31.81 Active [id number] ALLERGIES No Information ENCOUNTERS Encounter Location Date Diagnosis [place] [id number] [place] [address] 53745- 3835 January, [place] [address] [id number] [place] [address] 97062- 4366 Dec, Anxiety disorder, unspecified F41.9 ; Borderline personality disorder F60.3 and Bipolar II disorder in full remission F31.81 [facility] [place] [id number] [place] [address] 16459- 6835 Nov, Bipolar I disorder, current or most recent episode depressed , in partial remission F31.75 ; Anxiety disorder, unspecified type F41.9 and Borderline personality disorder F60.3 [facility] [place] [id number] [place] [address] 71995- 8603 Nov, Bipolar I disorder, current or most recent episode depressed , in partial remission F31.75 ; Anxiety disorder, unspecified type F41.9 and Borderline personality disorder F60.3 [facility] [place] [id number] [place] [address] 02604- 5807 Nov, Anxiety disorder, unspecified F41.9 [facility] [place] [address] [address] 1765 Nov, Bipolar I disorder, current or most recent episode depressed , in partial remission F31.75 ; Anxiety disorder, unspecified type F41.9 and Borderline personality disorder F60.3 [facility] [place] [address] [facility] [id number] [place] [id number] Nov, Bipolar II disorder in full remission F31.81 [facility] [place] [address], [place] [address] Oct, Anxiety disorder, unspecified F41.9 [facility] [place] [id number] [place] [address] 61550- 6914 Sep, Anxiety disorder, unspecified F41.9 [facility] [place] [id number] [place] [address] 31574- 5724 Sep, [facility] [place] [id number] [place] [address] 61264- 7176 Aug, [facility] [place] [id number] [place] [address] 18419- 4866 Aug, Anxiety disorder, unspecified F41.9 [facility] [place] [id number], [place] [address] 6672 Aug, [facility] [place] [id number] [place] [address] 95342- 9431 Jul, Anxiety disorder, unspecified F41.9 ; Borderline personality disorder F60.3 and Bipolar II disorder in full remission F31.81 [facility] [place] [id number] [place] [address] 24645- 4270 Jul, Borderline personality disorder F60.3 and Anxiety disorder, unspecified F41.9 [facility] [place] [address], [place] [address]- 1414 Jul, [facility] [place] [id number] [address]- 4408 Jun, Bipolar I disorder, current or most recent episode depressed , in partial remission F31.75 ; Anxiety disorder, unspecified type F41.9 and Borderline personality disorder F60.3 [facility] [place] [address], [place] [address]- 7947 Jun, Anxiety disorder, unspecified F41.9 [facility] [place] [id number] [place] [address] 69817- 2394 May, Bipolar I disorder, current or most recent episode depressed , in partial remission F31.75 ; Anxiety disorder, unspecified type F41.9 and Borderline personality disorder F60.3 [place] [id number] [place] [address] 68017- 2377 May, [place] [id number] [place] [address] 09726- 7304 May, Anxiety disorder, unspecified F41.9 ; Borderline personality disorder F60.3 and Bipolar II disorder in full remission F31.81 [facility] [place] [id number] [place] [address] 11721- 0529 Apr, Anxiety disorder, unspecified F41.9 [facility] [place] [address], [place] [address]- 1102 Apr, Anxiety disorder, unspecified F41.9 [facility] [place] [address], [place] [address]- 8298 Mar, Anxiety disorder, unspecified F41.9 ; Borderline personality disorder F60.3 and Bipolar II disorder in full remission F31.81 [facility] [place] [address], [place] [address]- 2295 Dec, Anxiety disorder, unspecified F41.9 [facility] [place] [address], [place] [address]- 8776 Nov, Anxiety disorder, unspecified F41.9 [facility] [place] [id number] [address]- 1941 Nov, Anxiety disorder, unspecified F41.9 ; Nicotine dependence, unspecified, uncomplicated F17.200 ; Borderline personality disorder F60.3 and Bipolar II disorder in full remission F31.81 [facility] [place] [address], [place] [address]- 1593 Nov, [place] [id number] [place] [address] 10721- 3871 Oct, Anxiety disorder, unspecified F41.9 [place] [id number] [place] [address] 59775- 2985 Jul, [place] [id number] [place] [address] 74734- 8564 Jul, Anxiety disorder, unspecified F41.9 ; Nicotine dependence, unspecified, uncomplicated F17.200 ; Borderline personality disorder F60.3 and Bipolar II disorder in full remission F31.81 [place] [address], [place] [address]- 5963 Jun, [place] [id number] [place] [address] 18787- 2843 Jun, Anxiety disorder, unspecified F41.9 ; Nicotine dependence, unspecified, uncomplicated F17.200 ; Borderline personality disorder F60.3 and Bipolar II disorder in full remission F31.81 [place] [address], [place] [address]- 5243 May, Bipolar 2 disorder F31.81 ; Anxiety disorder, unspecified F41.9 and Nicotine dependence, unspecified, uncomplicated F17.200 [place] [address], [place] [address]- 7604 Apr, [place] [id number] [place] [address] 95023- 1548 Apr, Bipolar 2 disorder F31.81 ; Anxiety disorder, unspecified F41.9 and Nicotine dependence, unspecified, uncomplicated F17.200 [place] [address], [place] [address]- 7243 Apr, Bipolar 2 disorder F31.81 ; Anxiety disorder, unspecified F41.9 and Nicotine dependence, unspecified, uncomplicated F17.200 [facility] [place] [address], [place] [address]- 3723 Mar, [facility] [place] [id number] [place] [address] 59265- 1197 January, [facility] [place] [id number] [place] [address] 32216- 2925 Dec, Bipolar II disorder F31.81 [facility] [place] [id number] [place] [address] 02388- 2325 Dec, [facility] [place] [id number] [place] [address] 19585- 5325 Nov, Bipolar 2 disorder F31.81 and Anxiety disorder, unspecified F41.9 [facility] [place] [id number] [place] [address] 71720- 3791 Nov, Bipolar 2 disorder F31.81 and Anxiety disorder, unspecified F41.9 [facility] [place] [id number] [place] [address] 08505- 2749 Nov, [facility] [place] [address], [place] [address]- 2811 Nov, [facility] [place] [id number] [place] [address] 28328- 7244 Nov, Bipolar 2 disorder F31.81 and Anxiety disorder, unspecified F41.9 [facility] [place] [id number] [place] [address] 68432- 8410 Nov, Bipolar 2 disorder F31.81 [facility] [place] [id number], [place] [address]- 1026 Nov, [facility] [place] [id number] [place] [address] 43067- 8327 Nov, [facility] [place] [address], [place] [address]- 9312 Oct, [facility] [place] [id number], [place] [address]- 2916 Oct, [facility] [place] [id number], [place] [address]- 2926 Oct, [facility] [place] [id number] [place] [address] 99513- 9917 Oct, Bipolar 2 disorder F31.81 [facility] [place] [id number] [place] [address] 79114- 6036 Sep, [facility] [place] [id number] [place] [address] 08067- 9016 Sep, [facility] [place] [id number] [place] [address] 65724- 1634 Jul, Bipolar 2 disorder F31.81 [facility] [place] [address], [place] [address]- 8839 Jun, [facility] [place] [id number] [place] [address] 74034- 7134 Jun, Bipolar 2 disorder 296.89 [facility] [place] [address], [place] [address]- 1976 Jun, [facility] [place] [id number], [place] [address]- 6786 May, [facility] [place] [address], [place] [address]- 3514 Apr, Bipolar 2 disorder 296.89 [facility] [place] [address], [place] [address]- 9656 Apr, Bipolar 2 disorder 296.89 and Tobacco use disorder 305.1 [facility] [place] [address], [place] [address]- 4126 Mar, Bipolar II disorder 296.89 and Nicotine dependence 305.1 [facility] [address] [facility] [id number] [place] [address]- 9317 January, [facility] [address] [facility] [id number] [place] [address]- 0638 Dec, [facility] [address] [facility] [id number] [place] [address]- 7560 Dec, [facility] [address] [facility] [id number] [place] [address]- 1624 Nov, [facility] [address] [facility] [id number] [place] [address]- 8779 Nov, [facility] [id number] [place] [address]- 9423 Oct, [facility] [id number] [place] [address]- 8420 Oct, [facility] [address] [facility] [id number], [place] [address]- 7114 Sep, [facility] [id number] [place] [address]- 0707 Sep, [facility] [id number] [place] [address]- 8488 Sep, [facility] [id number], [place] [address]- 9384 Sep, [facility] [place] [facility] [address] [facility] [id number], [place] [address]- 1385 Sep, [facility] [place] [facility] [address] [facility] [id number] [place] [address]- 9324 Sep, [facility] [place] [facility] [address] [facility] [id number] [place] [address]- 5835 Sep, [facility] [place] [facility] [id number] [place] 8257 Sep, [facility] [address] [facility] [id number] [place] 1237 Sep, [facility] [place] [facility] [address] [id number] [place] [address]- 7394 Aug, [facility] [place] [facility] [address] [id number] [place] [address]- 3394 Aug, [facility] [place] [facility] [address] [id number] [place] 2999 Aug, [facility] [place] [facility] [address] [id number] [place] [address]- 2694 Aug, [facility] [place] [facility] [address] [id number] [place] [address]- 9503 Jul, [facility] [place] [facility] [address] [id number] [place] [address]- 9895 Jul, [facility] [place] [facility] [address] [id number] [place] [address]- 9367 Jun, [facility] [place] [facility] [address] [id number] [place] [address]- 4602 Jun, [facility] [place] [facility] [address] [id number] [place] [address]- 9673 Jun, [facility] [place] [facility] [address] [id number] [place] [address]- 9537 Jun, [facility] [place] [facility] [address] [id number] [place] [address]- 4827 Jun, [facility] [place] [facility] [address] [id number] [place] [address]- 9027 May, [facility] [place] [facility] [address] [id number] [place] [address]- 9724 May, [facility] [place] [facility] [address] [id number] [place] [address]- 0293 Apr, [facility] [place] [facility] [address] [id number] [place] 8398 Apr, [facility] [place] [facility] [address] [id number] [place] [address]- 2059 Mar, [facility] [place] [facility] [address] [id number] [place] [address]- 7946 Mar, [facility] [place] [facility] [address] [id number] [place] [address]- 0578 January, [facility] [place] [facility] [address] [id number] [place] [address]- 5652 January, [facility] [place] [facility] [address] [id number] [place] [address]- 2514 Dec, [facility] [place] [facility] [address] [id number] [place] [address]- 6914 Dec, [facility] [place] [facility] [address] [id number] [place] [address]- 4309 Dec, [facility] [place] [facility] [address] [id number] [place] [address]- 9292 Dec, [facility] [place] [facility] [address] [id number] [place] [address]- 2543 Dec, [facility] [place] [facility] [address] [id number] [place] [address]- 5100 Dec, [facility] [place] [facility] [address] [id number] [place] [address]- 2480 Nov, [facility] [place] [facility] [address] [id number] [place] [address]- 4834 Nov, [facility] [place] [facility] [address] [id number] [place] [address]- 2931 Nov, [facility] [place] [facility] [address] [id number] [place] [address]- 8411 Nov, [facility] [place] [facility] [address] [id number] [place] [address]- 7497 Nov, [facility] [place] [facility] [address] [id number], [place] [address]- 0752 Nov, [facility] [place] [facility] [address] [id number] [place] [address]- 1067 Nov, [facility] [place] [facility] [address] [id number] [place] [address]- 0908 Nov, [facility] [place] [facility] [address] [facility] [id number] [place] [address]- 6572 Oct, [facility] [place] [facility] [address] [id number] [place] [address]- 7186 Oct, [facility] [place] [facility] [address] [id number] [place] 2789 Aug, [facility] [place] [facility] [address] [facility] [id number] [place] [address]- 4676 Aug, [facility] [place] [facility] [address] [facility] [id number] [place] [address]- 1348 Aug, [facility] [place] [facility] [address] [facility] [id number] [place] [address]- 1404 Aug, [facility] [place] [facility] [address] [facility] [id number] [place] [address]- 7561 Jul, [facility] [place] [facility] [address] [facility] [id number] [place] [address]- 8944 Jun, [facility] [place] [facility] [address] [facility] [id number], [place] [address]- 7660 Apr, [facility] [place] [facility] [address] [id number], [place] [address]- 0102 Apr, [facility] [place] [facility] [address] [id number] [place] [address]- 5936 Mar, [facility] [place] [facility] [address] [facility] [id number] [place] [address]- 0602 Nov, [facility] [place] [facility] [address] [facility] [id number] [place] [address]- 5064 Nov, [facility] [place] [facility] [address] [id number] [place] [address]- 2546 Nov, [facility] [address] [id number] [place] [address]- 5586 Nov, [facility] [place] [facility] [address] [id number] [place] [address]- 2546 Oct, [facility] [place] [facility] [address] [id number] [place] [address]- 2546 Oct, [facility] [place] [facility] [address] [id number] [place] [address]- 2546 Oct, [facility] [place] [facility] [address] [id number] [place] [address]- 1976 Sep, [facility] [place] [facility] [address] [id number] [place] [address]- 8146 Sep, [facility] [address] [id number] [place] [address]- 2542 Aug, [facility] [address] [id number] [place] [address]- 4658 Aug, [facility] [place] [facility] [address] [id number] [place] [address]- 0786 Jun, [facility] [place] [facility] [address] [id number] [place] [address]- 6566 Apr, [facility] [place] [facility] [address] [id number] [place] [address]- 2546 Apr, [facility] [place] [facility] [address] [id number] [place] [address]- 2546 Mar, [facility] [place] [facility] [address] [id number] [place] [address]- 2546 Mar, [facility] [place] [facility] [address] [id number] [place] [address]- 2546 January, [facility] [place] [facility] [address] [id number] [place] [address]- 7416 January, [facility] [place] [id number], [place] [address]- 3676 Dec, [facility] [place] [address] [facility] [id number], [place] [address] Nov, [facility], [place], [facility] [id number], [place] [address] Nov, [facility], [place], [facility] [id number], [place] [address] Oct, [facility], [place], [facility] [address] [id number], [place] [address] Oct, [facility], [place], [facility] [id number] [place] [address] Sep, [facility], [place], [facility] [id number], [place] [address] Aug, [facility], [place], [facility] [id number], [place] [address] Aug, [facility], [place], [facility] [id number], [place] [address] Aug, [facility], [place], [facility] [id number], [place] [address] Aug, [facility], [place], [facility] [id number], [place] [address] Aug, [facility], [place], [facility] [address] [id number], [place] [address] Jul, [facility], [place], [facility] [id number], [place] [address] Jul, [facility], [place], [facility] [id number], [place] [address] Aug, IMMUNIZATIONS No Known Immunizations SOCIAL HISTORY Never Assessed REASON FOR VISIT klonopin PLAN OF CARE VITAL SIGNS MEDICATIONS Medication [...]
--- OUTSIDE RECORDS SUMMARY | 2018-11-18 20:13 | XMS REPORT ---
Author Author [facility] Address [address] [place] [address] Care Team Providers Care Commissary Superintendent Name Role Phone JOAN PATRICIAAGUS Unavailable PROBLEMS Type Condition ICD9-CM Code [id number] Code Onset Dates Condition Status SNOMED Code Problem Anxiety disorder, unspecified type F41.9 Active 575006993 Problem Bipolar I disorder, current or most recent episode depressed, in partial remission F31.75 Active 792217003 Problem Nicotine dependence, unspecified, uncomplicated F17.200 Active 86076119 Problem Anxiety disorder, unspecified F41.9 Active 679608444 Problem Borderline personality disorder F60.3 Active 27989927 Problem Bipolar II disorder in full remission F31.81 Active 23818838 ALLERGIES Substance Reaction Event Type Date Status Sulfacetamide Sodium Unknown Drug Allergy Nov, Active Penicillin V Potassium Unknown Drug Allergy Nov, Active Macrobid Unknown Drug Allergy Nov, Active Biaxin shortness of breath Drug Allergy Nov, Active Avelox shortness of breath Drug Allergy Nov, Active Desyrel halluinate Drug Allergy Nov, Active SOCIAL HISTORY Never Assessed PLAN OF CARE Activity Details Follow Up 3 Months Reason: VITAL SIGNS Height 64 in 2016-11-29 Weight 236.0 lbs 2016-11-29 Heart Rate 88 bpm 2016-11-29 Respiratory Rate 20 2016-11-29 BMI 40.50 kg/m2 2016-11-29 Blood pressure systolic 111 mmHg 2016-11-29 Blood pressure diastolic 73 mmHg 2016-11-29 MEDICATIONS Medication Instructions Dosage Frequency Start Date End Date Duration Status cetirizine 10 mg 1 Tablet by Oral route 1 time per day Oct, Active levothyroxine 25 mcg take 1 tablet (25 mcg) by oral route once daily January, Active Klonopin 0.5 MG Orally Once a day 1 tablet 24h 30 days Active Sertraline HCl 50 mg Orally Once a day 1 tablet 24h Active Toviaz 8 mg take 1 tablet (8 mg) by oral route once daily January, Active Abilify 15 MG Orally Once a day take 1 tablet (15 mg) by oral route once daily 24h Active Zafirlukast 20 mg 1 Tablet by Oral route 2 times per day Oct, Active losartan 50 mg 1 Tablet by Oral route 1 time per day January, Active cyclobenzaprine 10 mg 1 Tablet by Oral route 3 times per day PRN Apr Active Aripiprazole 15 MG TAKE 1 TABLET BY MOUTH ONCE DAILY 30 Active Januvia 100 mg 1 Tablet by Oral route 1 time per day January, Active Metformin HCl 500 MG Orally Twice a day 1 tablet with meals 12h Active Symbicort 160-4.5 mcg/actuation 2 puff by Inhalation route 2 times per day Oct, Active Bumex 1 MG Orally Once a day 1 tablet 24h Active Cymbalta 60 mg Orally Once a day take 2 capsule by Oral route 1 time per day 24h Active amlodipine 10 mg 1 Tablet by Oral route 1 time per day Oct, Active Omeprazole 20 mg Orally Once a day 1 capsule 24h Active ProAir HFA 90 mcg/actuation 2 puffs by Inhalation route 3 times per day PRN Oct, Active fluticasone 50 mcg/actuation 1 Nasal [place] by Nasal route 2 times per day ea nostril Oct, Active Duloxetine HCl 60 MG TAKE 2 CAPSULES BY MOUTH ONCE DAILY 30 Active Isosorbide Mononitrate 60 mg take 1 tablet (60 mg) by oral route once daily in the morning January, Active Aspirin 325 mg 1 Tablet by Oral route 1 time per day Oct, Active Crestor 5 mg 1 Tablet by Oral route 1 time per day January, Active Farxiga 5 MG Orally Once a day 1 tablet 24h Active RESULTS No Results PROCEDURES Procedure Date Ordered Result Body Site [facility] VISIT ESTABLISHED PATIENT Nov 29, 2016 IMMUNIZATIONS No Known Immunizations MEDICAL (GENERAL) HISTORY Type Description Date Medical History chronic pain Medical History hypothyroidism Medical History HTN Medical History GERD Medical History DM type 2 non insulin dependant Medical History COPD
--- OUTSIDE RECORDS SUMMARY | 2018-11-18 20:13 | XMS REPORT ---
Author Author BIANCA LIM Organization [employer] Address Unknown Phone Unavailable Care Team Providers Care Intermediate Designer Name Role Phone BIANCA LIM CP Unavailable Allergies No Known Allergies Problems Problem Type Condition ICD-9 Code Onset Dates Condition Status Problem Tobacco use disorder 305.1 Active Problem Bipolar 2 disorder 296.89 Active Medications No Known Medications Results No Known Results Summary Purpose [employer] Submission
--- OUTSIDE RECORDS SUMMARY | 2018-11-18 20:13 | XMS REPORT ---
Author Author [facility] Address [address] [place] [address] Care Team Providers Care Vp Customer Service Name Role Phone BERNARD PATRICIA Unavailable PROBLEMS Type Condition ICD9-CM Code [id number] Code Onset Dates Condition Status SNOMED Code Problem Borderline personality disorder F60.3 Active 22636136 Problem Bipolar II disorder in full remission F31.81 Active 33224223 Problem Nicotine dependence, unspecified, uncomplicated F17.200 Active 46467597 Problem Anxiety disorder, unspecified F41.9 Active 280505172 ALLERGIES Unknown Allergies SOCIAL HISTORY No smoking Hx information available PLAN OF CARE VITAL SIGNS MEDICATIONS Medication Instructions Dosage Frequency Start Date End Date Duration Status Sertraline HCl 50 mg Orally Once a day 1 tablet 24h Jun, Active RESULTS No Results PROCEDURES No Known procedures IMMUNIZATIONS No Known Immunizations
--- OUTSIDE RECORDS SUMMARY | 2018-11-18 20:13 | XMS REPORT ---
Author Author BERNARD PATRICIA [facility] Address [address] [place] [address] Care Team Providers Care Insurance Service Representative Name Role Phone JOAN PATRICIAAGUS Unavailable PROBLEMS Type Condition ICD9-CM Code CAO90-SL Code Onset Dates Condition Status SNOMED Code Problem Anxiety disorder, unspecified type F41.9 Active 140813044 Problem Bipolar I disorder, current or most recent episode depressed, in partial remission F31.75 Active 745379521 Problem Nicotine dependence, unspecified, uncomplicated F17.200 Active 92883670 Problem Anxiety disorder, unspecified F41.9 Active 101032144 Problem Borderline personality disorder F60.3 Active 46515147 Problem Bipolar II disorder in full remission F31.81 Active [id number] ALLERGIES No Information ENCOUNTERS Encounter Location Date Diagnosis [place] [id number] [place] [address] 19453- 7241 Apr, [place] [id number] [place] [id number] [place] [address] 02844- 4150 Dec, Anxiety disorder, unspecified F41.9 ; Borderline personality disorder F60.3 and Bipolar II disorder in full remission F31.81 [facility] [place] [id number] [place] [address] 61425- 2417 Nov, Bipolar I disorder, current or most recent episode depressed , in partial remission F31.75 ; Anxiety disorder, unspecified type F41.9 and Borderline personality disorder F60.3 [facility] [place] [address] [id number] [place] [address] 03195- 5665 Nov, Bipolar I disorder, current or most recent episode depressed , in partial remission F31.75 ; Anxiety disorder, unspecified type F41.9 and Borderline personality disorder F60.3 [facility] [place] [address] [id number] [place] [address] 76358- 1610 Nov, Anxiety disorder, unspecified F41.9 [facility] [place] [address] [address]37 Nov, Bipolar I disorder, current or most recent episode depressed , in partial remission F31.75 ; Anxiety disorder, unspecified type F41.9 and Borderline personality disorder F60.3 [facility] [place] [address] [facility] [id number] [id number] Nov, Bipolar II disorder in full remission F31.81 [facility] [place] [address] [address] 6972 Oct, Anxiety disorder, unspecified F41.9 [facility] [place] [id number] [place] [address] 81558- 6862 Sep, Anxiety disorder, unspecified F41.9 [facility] [place] [id number] [place] [address] 25209- 5136 Sep, [facility] [place] [id number] [place] [address] 20833- 3406 Aug, [facility] [place] [id number] [place] [address] 25969- 4990 Aug, Anxiety disorder, unspecified F41.9 [facility] [place] [address] [address] 9004 Aug, [facility] [place] [id number] [place] [address] 46818- 1498 Jul, Anxiety disorder, unspecified F41.9 ; Borderline personality disorder F60.3 and Bipolar II disorder in full remission F31.81 [facility] [place] [id number] [place] [address] 51949- 7729 Jul, Borderline personality disorder F60.3 and Anxiety disorder, unspecified F41.9 [facility] [place] [address], [place] [address] 4485 Jul, [facility] [place] [address] [place] [id number] [address]- 5798 Jun, Bipolar I disorder, current or most recent episode depressed , in partial remission F31.75 ; Anxiety disorder, unspecified type F41.9 and Borderline personality disorder F60.3 [facility] [place] [address] [address]- 6240 Jun, Anxiety disorder, unspecified F41.9 [facility] [place] [id number] [place] [address] 85996- 1085 May, Bipolar I disorder, current or most recent episode depressed , in partial remission F31.75 ; Anxiety disorder, unspecified type F41.9 and Borderline personality disorder F60.3 [place] [id number] [place] [address] 52302- 0528 May, [place] [id number] [place] [address] 10379- 6272 May, Anxiety disorder, unspecified F41.9 ; Borderline personality disorder F60.3 and Bipolar II disorder in full remission F31.81 [facility] [place] [id number] [place] [address] 84878- 9100 Apr, Anxiety disorder, unspecified F41.9 [facility] [place] [address], [place] [address] 1899 Apr, Anxiety disorder, unspecified F41.9 [facility] [place] [address], [place] [address]- 9462 Mar, Anxiety disorder, unspecified F41.9 ; Borderline personality disorder F60.3 and Bipolar II disorder in full remission F31.81 [facility] [place] [address] [address]- 9511 Dec, Anxiety disorder, unspecified F41.9 [facility] [place] [address], [place] [address]- 2919 Nov, Anxiety disorder, unspecified F41.9 [facility] [place] [address] [place] [id number] [address]- 8956 Nov, Anxiety disorder, unspecified F41.9 ; Nicotine dependence, unspecified, uncomplicated F17.200 ; Borderline personality disorder F60.3 and Bipolar II disorder in full remission F31.81 [facility] [place] [address], [place] [address]- 1102 Nov, [place] [address] [place] [id number] [place] [address] 16995- 5499 Oct, Anxiety disorder, unspecified F41.9 [place] [id number] [place] [address] 33743- 1383 Jul, [place] [address] [place] [id number] [place] [address] 15632- 4715 Jul, Anxiety disorder, unspecified F41.9 ; Nicotine dependence, unspecified, uncomplicated F17.200 ; Borderline personality disorder F60.3 and Bipolar II disorder in full remission F31.81 [place] [address], [place] [address]- 7200 Jun, [place] [id number] [place] [address] 87524- 0020 Jun, Anxiety disorder, unspecified F41.9 ; Nicotine dependence, unspecified, uncomplicated F17.200 ; Borderline personality disorder F60.3 and Bipolar II disorder in full remission F31.81 [place] [address], [place] [address]- 3118 May, Bipolar 2 disorder F31.81 ; Anxiety disorder, unspecified F41.9 and Nicotine dependence, unspecified, uncomplicated F17.200 [place] [address], [place] [address]- 0198 Apr, [place] [id number] [place] [address] 89991- 2670 Apr, Bipolar 2 disorder F31.81 ; Anxiety disorder, unspecified F41.9 and Nicotine dependence, unspecified, uncomplicated F17.200 [place] [address], [place] [address]- 6564 Apr, Bipolar 2 disorder F31.81 ; Anxiety disorder, unspecified F41.9 and Nicotine dependence, unspecified, uncomplicated F17.200 [facility] [place] [address], [place] [address]- 7440 Mar, [facility] [place] [address] [place] [id number] [place] [address] 75560- 2338 January, [facility] [place] [address] [place] [id number] [place] [address] 33561- 5508 Dec, Bipolar II disorder F31.81 [facility] [place] [address] [place] [id number] [place] [address] 82891- 1162 Dec, [facility] [place] [address] [place] [id number] [place] [address] 74488- 0415 Nov, Bipolar 2 disorder F31.81 and Anxiety disorder, unspecified F41.9 [facility] [place] [address] [place] [id number] [place] [address] 12681- 7827 Nov, Bipolar 2 disorder F31.81 and Anxiety disorder, unspecified F41.9 [facility] [place] [id number] [place] [address] 70601- 6734 Nov, [facility] [place] [address], [place] [address]- 3828 Nov, [facility] [place] [id number] [place] [address] 80352- 1231 Nov, Bipolar 2 disorder F31.81 and Anxiety disorder, unspecified F41.9 [facility] [place] [id number] [place] [address] 40905- 6047 Nov, Bipolar 2 disorder F31.81 [facility] [place] [address], [place] [address]- 3236 Nov, [facility] [place] [address] [place] [id number] [place] [address] 52152- 6345 Nov, [facility] [place] [address], [place] [address]- 6902 Oct, [facility] [place] [address], [place] [address]- 1126 Oct, [facility] [place] [address], [place] [address]- 9396 Oct, [facility] [place] [address] [place] [address] [id number] [place] [address] 06582- 5942 Oct, Bipolar 2 disorder F31.81 [facility] [place] [id number] [place] [address] 41442- 0786 Sep, [facility] [place] [address] [place] [id number] [place] [address] 07600- 9676 Sep, [facility] [place] [id number] [place] [address] 59945- 6022 Jul, Bipolar 2 disorder F31.81 [facility] [place] [address], [place] [address]- 3185 Jun, [facility] [place] [address] [place] [id number] [place] [address] 77985- 6582 Jun, Bipolar 2 disorder 296.89 [facility] [place] [address], [place] [address]- 2966 Jun, [facility] [place] [address], [place] [address]- 6836 May, [facility] [place] [address], [place] [address]- 3817 Apr, Bipolar 2 disorder 296.89 [facility] [place] [address], [place] [address]- 6046 Apr, Bipolar 2 disorder 296.89 and Tobacco use disorder 305.1 [facility] [place] [address], [place] [address]- 5226 Mar, Bipolar II disorder 296.89 and Nicotine dependence 305.1 [facility] [address] [facility] [id number] [place] [address]- 4695 January, [facility] [address] [facility] [id number] [place] [address]- 8901 Dec, [facility] [address] [facility] [id number] [place] [address]- 0488 Dec, [facility] [address] [facility] [id number] [place] [address]- 2826 Nov, [facility] [address] [facility] [id number] [place] [address]- 0443 Nov, [facility] [address] [place] [id number] [place] [address]- 6581 Oct, [facility] [address] [place] [id number] [place] [address]- 0416 Oct, [facility] [address] [facility] [id number] [address]- 0880 Sep, [facility] [id number] [place] [address]- 5110 Sep, [facility] [address] [place] [address] [id number] [place] [address]- 7460 Sep, [facility] [id number], [place] [address]- 5925 Sep, [facility] [place] [facility] [address] [facility] [id number], [place] [address]- 3440 Sep, [facility] [place] [facility] [address] [facility] [id number] [place] [address]- 7207 Sep, [facility] [place] [facility] [address] [facility] [id number] [place] [address]- 8633 Sep, [facility] [place] [facility] [address] [place] [id number] 3043 Sep, [facility] [address] [facility] [id number] [place] 9649 Sep, [facility] [place] [facility] [address] [id number] [place] [address]- 9151 Aug, [facility] [place] [facility] [address] [id number] [place] [address]- 5617 Aug, [facility] [place] [facility] [address] [id number] [place] 0010 Aug, [facility] [place] [facility] [address] [id number] [place] [address]- 5291 Aug, [facility] [place] [facility] [address] [id number] [place] [address]- 7453 Jul, [facility] [place] [facility] [address] [id number] [place] [address]- 8597 Jul, [facility] [place] [facility] [address] [id number] [place] [address]- 2565 Jun, [facility] [place] [facility] [address] [id number] [place] [address]- 5405 Jun, [facility] [place] [facility] [address] [id number] [place] [address]- 6527 Jun, [facility] [place] [facility] [address] [id number] [place] [address]- 7867 Jun, [facility] [place] [facility] [address] [id number] [place] [address]- 2943 Jun, [facility] [place] [facility] [address] [id number] [place] [address]- 5664 May, [facility] [place] [facility] [address] [id number] [place] [address]- 0349 May, [facility] [place] [facility] [address] [id number] [place] [address]- 9583 Apr, [facility] [place] [facility] [address] [id number] [place] 9166 Apr, [facility] [place] [facility] [address] [id number] [place] [address]- 6059 Mar, [facility] [place] [facility] [address] [id number] [place] [address]- 3797 Mar, [facility] [place] [facility] [address] [id number] [place] [address]- 2837 January, [facility] [place] [facility] [address] [id number] [place] [address]- 1496 January, [facility] [place] [facility] [address] [id number] [place] [address]- 2788 Dec, [facility] [place] [facility] [address] [id number] [place] [address]- 7857 Dec, [facility] [place] [facility] [address] [id number] [place] [address]- 4242 Dec, [facility] [place] [facility] [address] [id number] [place] [address]- 3481 Dec, [facility] [place] [facility] [address] [id number] [place] [address]- 3907 Dec, [facility] [place] [facility] [address] [id number] [place] [address]- 4918 Dec, [facility] [place] [facility] [address] [id number] [place] [address]- 7990 Nov, [facility] [place] [facility] [address] [id number] [place] [address]- 2986 Nov, [facility] [place] [facility] [address] [id number] [place] [address]- 1318 Nov, [facility] [place] [facility] [address] [id number] [place] [address]- 8787 Nov, [facility] [place] [facility] [address] [id number] [place] [address]- 6012 Nov, [facility] [place] [facility] [address] [id number], [place] [address]- 1327 Nov, [facility] [place] [facility] [address] [id number] [place] [address]- 9118 Nov, [facility] [place] [facility] [address] [id number] [place] [address]- 4827 Nov, [facility] [place] [facility] [address] [facility] [id number] [place] [address]- 2741 Oct, [facility] [place] [facility] [address] [id number] [place] [address]- 2408 Oct, [facility] [place] [facility] [address] [id number] [place] 4115 Aug, [facility] [place] [facility] [address] [facility] [id number] [place] [address]- 4927 Aug, [facility] [place] [facility] [address] [facility] [id number] [place] [address]- 7152 Aug, [facility] [place] [facility] [address] [facility] [id number] [place] [address]- 8802 Aug, [facility] [place] [facility] [address] [facility] [id number] [place] [address]- 7614 Jul, [facility] [place] [facility] [address] [facility] [id number] [place] [address]- 7541 Jun, [facility] [place] [facility] [address] [facility] [id number], [place] [address]- 8521 Apr, [facility] [place] [facility] [address] [id number], [place] [address]- 6897 Apr, [facility] [place] [facility] [address] [id number] [place] [address]- 8592 Mar, [facility] [place] [facility] [address] [facility] [id number] [place] [address]- 7445 Nov, [facility] [place] [facility] [address] [facility] [id number] [place] [address]- 0426 Nov, [facility] [place] [facility] [address] [id number] [place] [address]- 2546 Nov, [facility] [address] [id number] [place] [address]- 1066 Nov, [facility] [place] [facility] [address] [id number] [place] [address]- 2546 Oct, [facility] [place] [facility] [address] [id number] [place] [address]- 2546 Oct, [facility] [place] [facility] [address] [id number] [place] [address]- 2546 Oct, [facility] [place] [facility] [address] [id number] [place] [address]- 9866 Sep, [facility] [place] [facility] [address] [id number] [place] [address]- 4286 Sep, [facility] [address] [id number] [place] [address]- 8130 Aug, [facility] [address] [id number] [place] [address]- 2238 Aug, [facility] [place] [facility] [address] [id number] [place] [address]- 5966 Jun, [facility] [place] [facility] [address] [id number] [place] [address]- 8946 Apr, [facility] [place] [facility] [address] [id number] [place] [address]- 2546 Apr, [facility] [place] [facility] [address] [id number] [place] [address] Mar, [facility] [place] [facility] [address] [id number] [place] [address] Mar, [facility] [place] [facility] [address] [id number] [place] [address] January, [facility] [place] [facility] [address] [id number] [place] [address] January, [facility] [place] [address] [id number] [address] Dec, [facility] [place] [id number] [address] Nov, [facility] [place] [id number] [address] Nov, [facility] [place] [id number] [address] Oct, [facility] [place] [id number], [place] [address] Oct, [facility] [place] [id number] [place] [address] Sep, [facility] [place] [id number] [address] Aug, [facility] [place] [id number] [address] Aug, [facility] [place] [address] [place] [address] Aug, [facility] [place] [id number] [address] Aug, [facility] [place] [address] [address] Aug, [facility] [place] [id number], [place] [address] Jul, [facility] [place] [address] [address] Jul, [facility] [place] [id number] [address] Aug, IMMUNIZATIONS No Known Immunizations SOCIAL HISTORY Never Assessed REASON FOR VISIT klonopin 10/26/2017 PLAN OF CARE VITAL SIGNS MEDICATIONS Medication [...]
--- OUTSIDE RECORDS SUMMARY | 2018-11-18 20:13 | XMS REPORT ---
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 [employer] Name Role Phone ANDERSON YADAV Unavailable Allergies No Known Allergies Problems Problem Type Condition Code Onset Dates Condition Status Problem Bipolar 2 disorder F31.81 Active Medications Medication Code System Code Instructions Start Date End Date Status Dosage Cymbalta [facility] [address]-94 60 MG Orally Once a day Oct 30, 2014 take 2 capsule by Oral route 1 time per day Abilify [facility] [address]-06 15 MG Orally Once a day Oct 30, 2014 take 1 tablet (15 mg) by oral route once daily Results No Known Results Summary Purpose [employer] Submission
--- OUTSIDE RECORDS SUMMARY | 2018-11-18 20:14 | XMS REPORT ---
Author Author BIANCA LIM Organization [facility] Address [address] [place] [address] Care Team Providers Care Director Trading Name Role Phone BIANCA LIM Unavailable PROBLEMS Type Condition ICD9-CM Code GTF80-ZM Code Onset Dates Condition Status SNOMED Code Problem Anxiety disorder, unspecified type F41.9 Active 382079165 Problem Bipolar I disorder, current or most recent episode depressed, in partial remission F31.75 Active 894079070 Problem Nicotine dependence, unspecified, uncomplicated F17.200 Active 25798087 Problem Anxiety disorder, unspecified F41.9 Active 020944278 Problem Borderline personality disorder F60.3 Active 01986609 Problem Bipolar II disorder in full remission F31.81 Active 67530907 ALLERGIES No Information ENCOUNTERS Encounter Location Date Diagnosis [facility] [address] [address] Dec, Anxiety disorder, unspecified F41.9 ; Borderline personality disorder F60.3 and Bipolar II disorder in full remission F31.81 [facility] [id number] [address] Nov, Bipolar I disorder, current or most recent episode depressed , in partial remission F31.75 ; Anxiety disorder, unspecified type F41.9 and Borderline personality disorder F60.3 [facility] [address], [place] [address] Nov, Bipolar I disorder, current or most recent episode depressed , in partial remission F31.75 ; Anxiety disorder, unspecified type F41.9 and Borderline personality disorder F60.3 [facility] [id number] [address] Nov, Anxiety disorder, unspecified F41.9 [facility] [id number] [address] Nov, Bipolar I disorder, current or most recent episode depressed , in partial remission F31.75 ; Anxiety disorder, unspecified type F41.9 and Borderline personality disorder F60.3 [facility] [place] [address] [facility] [id number] [id number] Nov, Bipolar II disorder in full remission F31.81 [facility] [address], [place] [address] Oct, Anxiety disorder, unspecified F41.9 [facility] [address], [place] [address] Sep, Anxiety disorder, unspecified F41.9 [facility] [address] [address] Sep, [facility] [address], [place] [address] Aug, [facility] [address], [place] [address] Aug, Anxiety disorder, unspecified F41.9 [facility] [address], [place] [address] Aug, [facility] [address] [address] Jul, Anxiety disorder, unspecified F41.9 ; Borderline personality disorder F60.3 and Bipolar II disorder in full remission F31.81 [facility] [id number] [address] Jul, Borderline personality disorder F60.3 and Anxiety disorder, unspecified F41.9 [facility] [address], [place] [address] Jul, [facility] [id number] [address] Jun, Bipolar I disorder, current or most recent episode depressed , in partial remission F31.75 ; Anxiety disorder, unspecified type F41.9 and Borderline personality disorder F60.3 [facility] [address] [place] [address]- [address] Jun, Anxiety disorder, unspecified F41.9 [facility] [id number] [place] [address]- [address] May, Bipolar I disorder, current or most recent episode depressed , in partial remission F31.75 ; Anxiety disorder, unspecified type F41.9 and Borderline personality disorder F60.3 [facility] [id number] [place] [address] 7[address]- [address]54 May, [place] [id number] [place] [address]- [address] May, Anxiety disorder, unspecified F41.9 ; Borderline personality disorder F60.3 and Bipolar II disorder in full remission F31.81 [place] [id number] [place] [address]- 6901 Apr, Anxiety disorder, unspecified F41.9 [place] [id number] [place] [address]- 4842 Apr, Anxiety disorder, unspecified F41.9 [place] [id number] [place] [address] 734[address]- 4338 Mar, Anxiety disorder, unspecified F41.9 ; Borderline personality disorder F60.3 and Bipolar II disorder in full remission F31.81 [facility] [address] [place] [address] 80795- 8631 Dec, Anxiety disorder, unspecified F41.9 [place] [id number] [place] [address] 76960- 0354 Nov, Anxiety disorder, unspecified F41.9 [facility] [id number] [place] [address] 057[address]- 4962 Nov, Anxiety disorder, unspecified F41.9 ; Nicotine dependence, unspecified, uncomplicated F17.200 ; Borderline personality disorder F60.3 and Bipolar II disorder in full remission F31.81 [facility] [address], [place] [address] Nov, [facility] [address], [place] [address] Oct, Anxiety disorder, unspecified F41.9 [place] [address], [place] [address] Jul, [place] [address], [place] [address] Jul, Anxiety disorder, unspecified F41.9 ; Nicotine dependence, unspecified, uncomplicated F17.200 ; Borderline personality disorder F60.3 and Bipolar II disorder in full remission F31.81 [place] [address], [place] [address] Jun, [place] [address] [place] [address]- 3002 Jun, Anxiety disorder, unspecified F41.9 ; Nicotine dependence, unspecified, uncomplicated F17.200 ; Borderline personality disorder F60.3 and Bipolar II disorder in full remission F31.81 [place] [address], [place] [address] May, Bipolar 2 disorder F31.81 ; Anxiety disorder, unspecified F41.9 and Nicotine dependence, unspecified, uncomplicated F17.200 [place] [address], [place] [address] Apr, [facility] [id number] [place] [address]- 2603 Apr, Bipolar 2 disorder F31.81 ; Anxiety disorder, unspecified F41.9 and Nicotine dependence, unspecified, uncomplicated F17.200 [facility] [address], [place] [address] Apr, Bipolar 2 disorder F31.81 ; Anxiety disorder, unspecified F41.9 and Nicotine dependence, unspecified, uncomplicated F17.200 [facility] [address], [place] [address] 1676 Mar, [facility] [id number] [place] [address] 94665- 2276 January, [facility] [id number] [place] [address] 65910- 2858 Dec, Bipolar II disorder F31.81 [facility] [id number] [place] [address] 06[address] 2546 Dec, [facility] [id number] [place] [address] 03357- 6461 Nov, Bipolar 2 disorder F31.81 and Anxiety disorder, unspecified F41.9 [facility] [id number] [place] [address] 00760- 2229 Nov, Bipolar 2 disorder F31.81 and Anxiety disorder, unspecified F41.9 [facility] [id number] [place] [address] 84216- 4612 Nov, [facility] [id number] [place] [address] 48507- 0882 Nov, [facility] [id number] [place] [address] 08926- 5981 Nov, Bipolar 2 disorder F31.81 and Anxiety disorder, unspecified F41.9 [facility] [address], [place] [address]- 1025 Nov, Bipolar 2 disorder F31.81 [facility] [id number] [place] [address] 57112- 1286 Nov, [facility] [address], [place] [address]- 2546 Nov, [facility] [id number] [place] [address] 76094- 6334 Oct, [facility] [address], [place] [address]- 6129 Oct, [facility] [address], [place] [address]- 8247 Oct, [facility] [address], [place] [address]- 6983 Oct, Bipolar 2 disorder F31.81 [facility] [id number] [place] [address] 665870- 5438 Sep, [facility] [id number] [place] [address] 777286- 4307 Sep, [facility] [id number] [place] [address] 661105- 2385 Jul, Bipolar 2 disorder F31.81 [facility] [id number] [place] [address] 78895- 9268 Jun, [facility] [id number] [place] [address] 05329- 5232 Jun, Bipolar 2 disorder 296.89 [facility] [id number] [place] [address] 261965- 8018 Jun, [facility] [address] [address] May, [facility] [address], [place] [address]- 0159 Apr, Bipolar 2 disorder 296.89 [facility] [address] [address] Apr, Bipolar 2 disorder 296.89 and Tobacco use disorder 305.1 [facility] [address] [address] Mar, Bipolar II disorder 296.89 and Nicotine dependence 305.1 [facility] [address], [place] [address]- 0854 January, [facility] [place] [facility] [address] [id number] [place] [address]- 6431 Dec, [facility] [place] [facility] [address] [id number] [place] [address]- 7670 Dec, [facility] [place] [facility] [address] [id number] [place] [address]- 8920 Nov, [facility] [place] [facility] [address] [id number] [place] [address]- 0844 Nov, [facility] [place] [facility] [address] [id number] [place] [address]- 9934 Oct, [facility] [place] [facility] [address] [id number] [place] [address]- 0561 Oct, [facility] [place] [facility] [address] [id number] [place] [address]- 0588 Sep, [facility] [place] [facility] [address] [id number] [place] [address]- 5848 Sep, [facility] [place] [facility] [address] [id number] [place] [address]- 1778 Sep, [facility] [place] [facility] [address] [id number] [place] [address]- 4290 Sep, [facility] [place] [facility] [address] [id number] [place] [address]- 2204 Sep, [facility] [place] [facility] [address] [id number] [place] [address]- 9746 18 Sep, 2014 [facility] [place] [facility] [address] [id number] [place] [address]- 0351 17 Sep, 2014 [facility] [place] [facility] [address] [id number] [place] [address]- 7360 Sep, [facility] [place] [facility] [address] [id number] [place] [address] Sep, [facility] [place] [facility] [address] [id number] [place] [address]- 8454 Aug, [facility] [place] [facility] [address] [id number] [place] [address]- 5051 Aug, [facility] [place] [facility] [address] [id number] [place] [address]- 7482 Aug, [facility] [place] [facility] [address] [id number] [place] [address]- 4510 Aug, [facility] [place] [facility] [address] [id number] [place] [address]- 5422 Jul, [facility] [place] [facility] [address] [id number] [place] [address]- 5003 Jul, [facility] [place] [facility] [address] [id number] [place] [address]- 1467 16 Jun, 2014 [facility] [place] [facility] [address] [id number] [place] [address]- 0181 16 Jun, 2014 [facility] [place] [facility] [address] [id number] [place] [address]- 4489 Jun, [facility] [place] [facility] [address] [id number] [place] [address]- 6605 Jun, [facility] [place] [facility] [address] [id number] [place] [address]- 2348 Jun, [facility] [place] [facility] [address] [id number] [place] [address]- 5199 May, [facility] [place] [facility] [address] [id number] [place] [address]- 0507 May, [facility] [place] [facility] [address] [id number] [place] [address]- 6792 Apr, [facility] [place] [facility] [address] [id number] [place] [address]- 6214 Apr, [facility] [place] [facility] [address] [id number] [place] [address]- 9300 Mar, [facility] [place] [facility] [address] [id number] [place] [address]- 2950 Mar, [facility] [place] [facility] [address] [id number] [place] [address]- 9955 January, [facility] [place] [facility] [address] [id number] [place] [address]- 6500 January, [facility] [place] [facility] [address] [id number] [place] [address]- 6114 Dec, [facility] [place] [facility] [address] [id number] [place] [address]- 1174 Dec, [facility] [place] [facility] [address] [id number] [place] [address]- 4176 Dec, [facility] [place] [facility] [address] [id number] [place] [address]- 8571 Dec, [facility] [place] [facility] [address] [id number] [place] [address]- 1244 Dec, [facility] [place] [facility] [address] [id number] [place] [address]- 1353 Dec, [facility] [place] [facility] [address] [id number] [place] [address]- 5229 Nov, [facility] [place] [facility] [address] [id number] [place] [address]- 3989 Nov, [facility] [place] [facility] [address] [id number] [place] [address]- 8356 Nov, [facility] [place] [facility] [address] [id number] [place] [address]- 1448 Nov, [facility] [place] [facility] [address] [id number] [place] [address]- 3762 Nov, [facility] [place] [facility] [address] [id number] [place] [address]- 3465 Nov, [facility] [place] [facility] [address] [id number] [place] [address]- 5796 Nov, [facility] [place] [facility] [address] [id number] [place] 4910 Nov, [facility] [place] [facility] [address] [id number] [place] [address]- 2675 Oct, [facility] [place] [facility] [address] [id number] [place] [address]- 7467 Oct, [facility] [place] [facility] [address] [id number] [place] [address]- 6064 Aug, [facility] [place] [facility] [address] [id number] [place] 9182 Aug, [facility] [place] [facility] [address] [id number] [place] [address]- 1667 Aug, [facility] [place] [facility] [address] [id number] [place] [address]- 0959 Aug, [facility] [place] [facility] [address] [id number] [place] [address]- 2122 Jul, [facility] [place] [facility] [address] [id number] [place] [address]- 3843 Jun, [facility] [place] [facility] [address] [id number] [place] [address]- 5001 Apr, [facility] [place] [facility] [address] [id number] [address]- 8921 Apr, [facility] [place] [facility] [address] [id number], [place] [address]- 3489 Mar, [facility] [place] [facility] [address] [id number] [place] [address]- 5047 Nov, [facility] [place] [facility] [address] [id number] [place] [address]- 0522 Nov, [facility] [place] [facility] [address] [id number] [place] [address]647 Nov, [facility] [place] [facility] [address] [id number] [place] [address]- 2546 Nov, [facility] [address] [id number] [place] [address]- 2546 Oct, [facility] [place] [facility] [address] [id number] [place] [address]- 2546 Oct, [facility] [address] [id number] [place] [address]- 2546 Oct, [facility] [place] [facility] [address] [id number] [place] [address]- 2546 Sep, [facility] [address] [id number] [place] [address]- 2546 Sep, [facility] [place] [facility] [address] [id number] [place] [address]- 2546 Aug, [facility] [place] [facility] [address] [id number] [place] [address]- 2546 Aug, [facility] [address] [id number] [place] [address]- 3866 Jun, [facility] [place] [facility] [address] [id number] [place] [address]- 2546 Apr, [facility] [address] [id number] [place] [address]- 2546 Apr, [facility] [place] [facility] [address] [id number] [place] [address]- 2546 Mar, [facility] [place] [facility] [address] [id number] [place] [address]- 2546 Mar, [facility] [place] [facility] [address] [id number] [place] [address]- 2546 January, [facility] [place] [facility] [address] [id number] [place] [address]- 2546 January, [facility] [place] [facility] [address] [id number] [place] [address]- 2546 Dec, [facility] [address] [facility] [id number] [address]- 6410 Nov, [facility] [address], [place] [address]- 2406 Nov, [facility] [address], [place] [address]- 4282 Oct, [facility] [address], [place] [address]- 6515 Oct, [facility] [address], [place] [address]- 4746 Sep, [facility] [id number] [place] [address]54- 1098 Aug, [facility] [address] [address]- 8333 Aug, [facility] [address], [place] [address]- 9497 Aug, [facility] [address] [address]- 9228 Aug, [facility] [address], [place] [address]- 4662 Aug, [facility] [address], [place] [address]- 5285 Jul, [facility] [address], [place] [address]- 7491 Jul, [facility] [id number], [place] [address]- 5181 Aug, IMMUNIZATIONS No Known Immunizations SOCIAL HISTORY Never Assessed REASON FOR VISIT PLAN OF CARE VITAL SIGNS MEDICATIONS Unknown Medications RESULTS No Results PROCEDURES No Known procedures INSTRUCTIONS MEDICATIONS ADMINISTERED No Known Medications MEDICAL (GENERAL) HISTORY Type Description Date Medical History chronic pain Medical History hypothyroidism Medical History HTN Medical History GERD Medical History DM type 2 non insulin dependant Medical History COPD
--- OUTSIDE RECORDS SUMMARY | 2018-11-18 20:14 | XMS REPORT ---
Author Author BERNARD PATRICIA [facility] Address [address] [place] [address] Care Team Providers Care Web Feeder Name Role Phone JOAN PATRICIAAGUS Unavailable PROBLEMS Type Condition ICD9-CM Code [id number] Code Onset Dates Condition Status SNOMED Code Problem Anxiety disorder, unspecified type F41.9 Active [id number] Problem Bipolar I disorder, current or most recent episode depressed, in partial remission F31.75 Active 926917958 Problem Nicotine dependence, unspecified, uncomplicated F17.200 Active 07980086 Problem Anxiety disorder, unspecified F41.9 Active 922468235 Problem Borderline personality disorder F60.3 Active 50322816 Problem Bipolar II disorder in full remission F31.81 Active [id number] ALLERGIES No Information ENCOUNTERS Encounter Location Date Diagnosis [place] [id number] [place] [address] 52131- 5767 Dec, [place] [address] [place] [id number] [place] [address] 06596- 2669 Dec, Anxiety disorder, unspecified F41.9 ; Borderline personality disorder F60.3 and Bipolar II disorder in full remission F31.81 [facility] [place] [id number] [place] [address] 98572- 8273 Nov, Bipolar I disorder, current or most recent episode depressed , in partial remission F31.75 ; Anxiety disorder, unspecified type F41.9 and Borderline personality disorder F60.3 [facility], [place] [id number] [place] [address] 88311- 2563 Nov, Bipolar I disorder, current or most recent episode depressed , in partial remission F31.75 ; Anxiety disorder, unspecified type F41.9 and Borderline personality disorder F60.3 [facility], [place] [id number] [place] [address] 22667- 1366 Nov, Anxiety disorder, unspecified F41.9 [facility], [place] [address] [address] 2[address] Nov, Bipolar I disorder, current or most recent episode depressed , in partial remission F31.75 ; Anxiety disorder, unspecified type F41.9 and Borderline personality disorder F60.3 [facility] [place] [address] [facility] [id number] [id number] Nov, Bipolar II disorder in full remission F31.81 [facility], [place] [address] [address] 68[address] Oct, Anxiety disorder, unspecified F41.9 [facility], [place] [id number] [place] [address] 83584- 0135 Sep, Anxiety disorder, unspecified F41.9 [facility], [place] [id number] [place] [address] 16743- 8000 Sep, [facility], [place] [id number] [place] [address] 49746- 4678 Aug, [facility], [place] [id number] [place] [address] 09116- 5020 Aug, Anxiety disorder, unspecified F41.9 [facility], [place] [address] [address] 2238 Aug, [facility], [place] [address] [place] [address] 08328- 6628 Jul, Anxiety disorder, unspecified F41.9 ; Borderline personality disorder F60.3 and Bipolar II disorder in full remission F31.81 [facility], [place] [address] [place] [address] 30822- 4155 Jul, Borderline personality disorder F60.3 and Anxiety disorder, unspecified F41.9 [facility], [place] [address] [address] 2095 Jul, [facility], [place] [id number] [address] 0646 Jun, Bipolar I disorder, current or most recent episode depressed , in partial remission F31.75 ; Anxiety disorder, unspecified type F41.9 and Borderline personality disorder F60.3 [facility], [place] [address] [address]- 2940 Jun, Anxiety disorder, unspecified F41.9 [facility], [place] [address] [place] [address] 53374- 5546 May, Bipolar I disorder, current or most recent episode depressed , in partial remission F31.75 ; Anxiety disorder, unspecified type F41.9 and Borderline personality disorder F60.3 [place] [address] [place] [address] 34293- 3389 May, [place] [id number] [place] [address] 69689- 4993 May, Anxiety disorder, unspecified F41.9 ; Borderline personality disorder F60.3 and Bipolar II disorder in full remission F31.81 [facility], [place] [id number] [place] [address] 44058- 4954 Apr, Anxiety disorder, unspecified F41.9 [facility], [place] [address] [address]- 0590 Apr, Anxiety disorder, unspecified F41.9 [facility], [place] [address] [address]- 5428 Mar, Anxiety disorder, unspecified F41.9 ; Borderline personality disorder F60.3 and Bipolar II disorder in full remission F31.81 [facility], [place] [address], [place] [address]- 1114 Dec, Anxiety disorder, unspecified F41.9 [facility], [place] [address], [place] [address]- 0865 Nov, Anxiety disorder, unspecified F41.9 [facility], [place] [id number] [address]- 7338 Nov, Anxiety disorder, unspecified F41.9 ; Nicotine dependence, unspecified, uncomplicated F17.200 ; Borderline personality disorder F60.3 and Bipolar II disorder in full remission F31.81 [facility], [place] [address] [address]- 3935 Nov, [place] [id number] [place] [address] 74074- 3476 Oct, Anxiety disorder, unspecified F41.9 [place] [id number] [place] [address] 07535- 8625 Jul, [place] [address] [address] [id number] [place] [address] 82376- 6807 Jul, Anxiety disorder, unspecified F41.9 ; Nicotine dependence, unspecified, uncomplicated F17.200 ; Borderline personality disorder F60.3 and Bipolar II disorder in full remission F31.81 [place] [address] [address]- 0729 Jun, [place] [address] [place] [address] 77417- 8706 Jun, Anxiety disorder, unspecified F41.9 ; Nicotine dependence, unspecified, uncomplicated F17.200 ; Borderline personality disorder F60.3 and Bipolar II disorder in full remission F31.81 [place] [address] [address]- 8575 May, Bipolar 2 disorder F31.81 ; Anxiety disorder, unspecified F41.9 and Nicotine dependence, unspecified, uncomplicated F17.200 [place] [address] [address]- 8242 Apr, [place] [address] [place] [address] 87733- 5276 Apr, Bipolar 2 disorder F31.81 ; Anxiety disorder, unspecified F41.9 and Nicotine dependence, unspecified, uncomplicated F17.200 [place] [address] [address]- 3326 Apr, Bipolar 2 disorder F31.81 ; Anxiety disorder, unspecified F41.9 and Nicotine dependence, unspecified, uncomplicated F17.200 [facility], [place] [address] [address]- 1806 Mar, [facility], [place] [id number] [place] [address] 99733- 7902 January, [facility], [place] [id number] [place] [address] 29756- 3946 Dec, Bipolar II disorder F31.81 [facility], [place] [id number] [place] [address] 47778- 6231 Dec, [facility], [place] [id number] [place] [address] 14377- 7695 Nov, Bipolar 2 disorder F31.81 and Anxiety disorder, unspecified F41.9 [facility], [place] [id number] [place] [address] 92262- 2061 Nov, Bipolar 2 disorder F31.81 and Anxiety disorder, unspecified F41.9 [facility], [place] [address] [place] [address] 32776- 5492 Nov, [facility], [place] [address] [address]- 4074 Nov, [facility], [place] [id number] [place] [address] 52344- 6240 Nov, Bipolar 2 disorder F31.81 and Anxiety disorder, unspecified F41.9 [facility], [place] [address] [place] [address] 49221- 3784 Nov, Bipolar 2 disorder F31.81 [facility], [place] [address] [address]- 8526 Nov, [facility], [place] [id number] [place] [address] 94333- 8903 Nov, [facility], [place] [address] [address]- 0577 Oct, [facility], [place] [address], [place] [address]- 9906 Oct, [facility], [place] [address] [address]- 9776 Oct, [facility], [place] [id number] [place] [address] 00172- 3743 Oct, Bipolar 2 disorder F31.81 [facility], [place] [address] [place] [address] 29122- 0866 Sep, [facility], [place] [id number] [place] [address] 53858- 2986 Sep, [facility], [place] [id number] [place] [address] 56365- 4756 Jul, Bipolar 2 disorder F31.81 [facility], [place] [address] [address]- 1275 Jun, [facility], [place] [id number] [place] [address] 89123- 1601 Jun, Bipolar 2 disorder 296.89 [facility], [place] [address], [place] [address]- 9986 Jun, [facility], [place] [address] [address]- 8036 May, [facility], [place] [address] [address]- 6552 Apr, Bipolar 2 disorder 296.89 [facility], [place] [address] [address]- 0866 Apr, Bipolar 2 disorder 296.89 and Tobacco use disorder 305.1 [facility], [place] [address] [address]- 9476 Mar, Bipolar II disorder 296.89 and Nicotine dependence 305.1 [facility] [address] [facility] [id number] [place] [address]- 7026 January, [facility] [address] [facility] [id number] [place] [address]- 8522 Dec, [facility] [address] [facility] [id number] [place] [address]- 6624 Dec, [facility] [address] [facility] [id number] [place] [address]- 9595 Nov, [facility] [address] [facility] [id number] [place] [address]- 8365 Nov, [facility] [id number] [place] [address]- 9481 Oct, [facility] [id number] [place] [address]- 1776 Oct, [facility] [address] [facility] [id number] [address]- 1280 Sep, [facility] [id number] [place] [address]- 0426 Sep, [facility] [id number] [place] [address]- 3463 Sep, [facility] [id number] [address]- 9636 Sep, [facility] [place] [facility] [address] [facility] [id number] [address]- 6517 Sep, [facility] [place] [facility] [address] [facility] [id number] [place] [address]- 7755 Sep, [facility] [place] [facility] [address] [facility] [id number] [place] [address]- 7263 Sep, [facility] [place] [facility] [id number] 5230 Sep, [facility] [address] [facility] [id number] [place] 6654 Sep, [facility] [place] [facility] [address] [id number] [place] [address]- 4455 Aug, [facility] [place] [facility] [address] [id number] [place] [address]- 4445 Aug, [facility] [place] [facility] [address] [id number] [place]- 4968 Aug, [facility] [place] [facility] [address] [id number] [place] [address]- 1689 Aug, [facility] [place] [facility] [address] [id number] [place] [address]- 2981 Jul, [facility] [place] [facility] [address] [id number] [place] [address]- 2548 Jul, [facility] [place] [facility] [address] [id number] [place] [address]- 9597 Jun, [facility] [place] [facility] [address] [id number] [place] [address]- 8219 Jun, [facility] [place] [facility] [address] [id number] [place] [address]- 0906 Jun, [facility] [place] [facility] [address] [id number] [place] [address]- 2186 Jun, [facility] [place] [facility] [address] [id number] [place] [address]- 2983 Jun, [facility] [place] [facility] [address] [id number] [place] [address]- 4983 May, [facility] [place] [facility] [address] [id number] [place] [address]- 3520 May, [facility] [place] [facility] [address] [id number] [place] [address]- 2469 Apr, [facility] [place] [facility] [address] [id number] [place] 6026 Apr, [facility] [place] [facility] [address] [id number] [place] [address]- 5369 Mar, [facility] [place] [facility] [address] [id number] [place] [address]- 8161 Mar, [facility] [place] [facility] [address] [id number] [place] [address]- 2441 January, [facility] [place] [facility] [address] [id number] [place] [address]- 5943 January, [facility] [place] [facility] [address] [id number] [place] [address]- 0871 Dec, [facility] [place] [facility] [address] [id number] [place] [address]- 0573 Dec, [facility] [place] [facility] [address] [id number] [place] [address]- 3259 Dec, [facility] [place] [facility] [address] [id number] [place] [address]- 0180 Dec, [facility] [place] [facility] [address] [id number] [place] [address]- 0694 Dec, [facility] [place] [facility] [address] [id number] [place] [address]- 0961 Dec, [facility] [place] [facility] [address] [id number] [place] [address]- 6566 Nov, [facility] [place] [facility] [address] [id number] [place] [address]- 9940 Nov, [facility] [place] [facility] [address] [id number] [place] [address]- 6974 Nov, [facility] [place] [facility] [address] [id number] [place] [address]- 7637 Nov, [facility] [place] [facility] [address] [id number] [place] [address]- 0887 Nov, [facility] [place] [facility] [address] [id number] [address]- 8150 Nov, [facility] [place] [facility] [address] [id number] [place] [address]- 1493 Nov, [facility] [place] [facility] [address] [id number] [place] [address]- 0657 Nov, [facility] [place] [facility] [address] [facility] [id number] [place] [address]- 2234 Oct, [facility] [place] [facility] [address] [id number] [place] [address]- 1610 Oct, [facility] [place] [facility] [address] [id number] [place] 1177 Aug, [facility] [place] [facility] [address] [facility] [id number] [place] [address]- 5301 Aug, [facility] [place] [facility] [address] [facility] [id number] [place] [address]- 7175 Aug, [facility] [place] [facility] [address] [facility] [id number] [place] [address]- 8894 Aug, [facility] [place] [facility] [address] [facility] [id number] [place] [address]- 8874 Jul, [facility] [place] [facility] [address] [facility] [id number] [place] [address]- 8408 Jun, [facility] [place] [facility] [address] [facility] [id number] [address]- 3755 Apr, [facility] [place] [facility] [address] [id number], [place] [address]- 7653 Apr, [facility] [place] [facility] [address] [id number] [place] [address]- 1016 Mar, [facility] [place] [facility] [address] [facility] [id number] [place] [address]- 9677 Nov, [facility] [place] [facility] [address] [facility] [id number] [place] [address]- 4615 Nov, [facility] [place] [facility] [address] [id number] [place] [address]- 2546 Nov, [facility] [address] [id number] [place] [address]- 0006 Nov, [facility] [place] [facility] [address] [id number] [place] [address]- 2546 Oct, [facility] [place] [facility] [address] [id number] [place] [address]- 2546 Oct, [facility] [place] [facility] [address] [id number] [place] [address]- 2546 Oct, [facility] [place] [facility] [address] [id number] [place] [address]- 3676 Sep, [facility] [place] [facility] [address] [id number] [place] [address]- 6846 Sep, [facility] [address] [id number] [place] [address]- 6112 Aug, [facility] [address] [id number] [place] [address]- 4151 Aug, [facility] [place] [facility] [address] [id number] [place] [address]- 5186 Jun, [facility] [place] [facility] [address] [id number] [place] [address]- 9536 Apr, [facility] [place] [facility] [address] [id number] [place] [address]- 2546 Apr, [facility] [place] [facility] [address] [id number] [place] [address]- 2546 Mar, [facility] [place] [facility] [address] [id number] [place] [address]- 2546 Mar, [facility] [place] [facility] [address] [id number] [place] [address]- 2546 January, [facility] [place] [facility] [address] [id number] [place] [address]- 5356 January, [facility] [place] [id number] [address]- 2466 Dec, [facility] [place] [address] [facility] [id number] [address]- 4186 Nov, [facility] [place] [address] [address] 2546 Nov, [facility] [place] [address] [address]- 8276 Oct, [facility] [place] [id number] [address] 2546 Oct, [facility] [place] [id number] [place] [address] 29663- 6456 Sep, [facility] [place] [address], [place] [address]- 2636 Aug, [facility] [place] [address] [address]- 8013 Aug, [facility] [place] [address] [address]- 0210 Aug, [facility] [place] [address] [address]- 1176 Aug, [facility] [place] [address] [address]- 4586 Aug, [facility] [place] [id number] [address]- 1131 Jul, [facility] [place] [id number] [address] Jul, [facility], [place] [id number], [place] [address] Aug, IMMUNIZATIONS No Known Immunizations SOCIAL HISTORY Never Assessed REASON FOR VISIT Klonopin Refill PLAN OF CARE VITAL SIGNS MEDICATIONS Medication Instructions Dosage Frequency Start Date End Date Duration Status Klonopin 0.5 MG Orally Once every other day 1 tablet 15 days Active RESULTS No Results PROCEDURES No Known procedures INSTRUCTIONS MEDICATIONS ADMINISTERED No Known Medications MEDICAL (GENERAL) HISTORY Type Description Date Medical History chronic pain Medical History hypothyroidism Medical History HTN Medical History GERD Medical History DM type 2 non insulin dependant Medical History COPD
--- OUTSIDE RECORDS SUMMARY | 2018-11-18 20:15 | XMS REPORT ---
Author Author STACEY MAYO [facility] e[employer] Address Unknown Phone Unavailable Care Team Providers Care Mason Apprentice Name Role Phone STACEY MAYO CP Unavailable Allergies No Known Allergies Problems Problem Type Condition Code Onset Dates Condition Status Problem Bipolar 2 disorder F31.81 Active Problem Anxiety disorder, unspecified F41.9 Active Medications Medication Code System Code Instructions Start Date End Date Status Dosage Klonopin [facility] [address]-53 0.5 MG Orally Twice a day PRN anxiety Oct 30, 2014 1 tablet Results No Known Results Summary Purpose eClinicalWorks Submission
--- OUTSIDE RECORDS SUMMARY | 2018-11-18 20:15 | XMS REPORT ---
Author Author BIANCA LIM Organization [employer] Address Unknown Phone Unavailable Care Team Providers Care Signal System Testing Maintainer Name Role Phone BIANCA LIM CP Unavailable Allergies No Known Allergies Problems Problem Type Condition Code Onset Dates Condition Status Problem Anxiety disorder, unspecified F41.9 Active Problem Bipolar 2 disorder F31.81 Active Problem Nicotine dependence, unspecified, uncomplicated F17.200 Active Assessment Nicotine dependence, unspecified, uncomplicated F17.200 Active Assessment Bipolar 2 disorder F31.81 Active Assessment Anxiety disorder, unspecified F41.9 Active Medications No Known Medications Procedures Procedure Coding System Code Date Psychotherapy, patient &/family, 30 minutes, established patient CPT-4 69116 April 21, 2016 [facility] VISIT MENTAL HEALTH ESTAB PT CPT-4 G0470 April 21, 2016 Results No Known Results Summary Purpose eClinicalWorks Submission
--- OUTSIDE RECORDS SUMMARY | 2018-11-18 20:15 | XMS REPORT ---
Author Author BIANCA LIM Organization [facility] Address [address] [place] [address] Care Team Providers Care Staff Development Nurse Name Role Phone BIANCA LIM Unavailable PROBLEMS Type Condition ICD9-CM Code JZN49-DD Code Onset Dates Condition Status SNOMED Code Problem Anxiety disorder, unspecified type F41.9 Active 236467077 Problem Bipolar I disorder, current or most recent episode depressed, in partial remission F31.75 Active 937502775 Problem Nicotine dependence, unspecified, uncomplicated F17.200 Active 42429234 Problem Anxiety disorder, unspecified F41.9 Active 107761193 Problem Borderline personality disorder F60.3 Active 41938093 Problem Bipolar II disorder in full remission F31.81 Active 17544693 ALLERGIES No Information ENCOUNTERS Encounter Location Date Diagnosis [facility] [address], [place] [address] Dec, Anxiety disorder, unspecified F41.9 ; Borderline personality disorder F60.3 and Bipolar II disorder in full remission F31.81 [facility] [id number] [address] Nov, Bipolar I disorder, current or most recent episode depressed , in partial remission F31.75 ; Anxiety disorder, unspecified type F41.9 and Borderline personality disorder F60.3 [facility] [address] [address] Nov, Bipolar I disorder, current or most recent episode depressed , in partial remission F31.75 ; Anxiety disorder, unspecified type F41.9 and Borderline personality disorder F60.3 [facility] [address], [place] [address] Nov, Anxiety disorder, unspecified F41.9 [facility] [id number], [place] [address] Nov, Bipolar I disorder, current or most recent episode depressed , in partial remission F31.75 ; Anxiety disorder, unspecified type F41.9 and Borderline personality disorder F60.3 [facility] [place] [address] [facility] [id number] [place] [id number] Nov, Bipolar II disorder in full remission F31.81 [facility] [address], [place] [address] Oct, Anxiety disorder, unspecified F41.9 [facility] [address] [address] Sep, Anxiety disorder, unspecified F41.9 [facility] [address] [address] Sep, [facility] [address], [place] [address] Aug, [facility] [address] [address] Aug, Anxiety disorder, unspecified F41.9 [facility] [address] [address] Aug, [facility] [address], [place] [address] Jul, Anxiety disorder, unspecified F41.9 ; Borderline personality disorder F60.3 and Bipolar II disorder in full remission F31.81 [facility] [id number] [address] Jul, Borderline personality disorder F60.3 and Anxiety disorder, unspecified F41.9 [facility] [address] [address] Jul, [facility] [id number] [address] Jun, Bipolar I disorder, current or most recent episode depressed , in partial remission F31.75 ; Anxiety disorder, unspecified type F41.9 and Borderline personality disorder F60.3 [facility] [id number] [place] [address]- [address] Jun, Anxiety disorder, unspecified F41.9 [facility] [id number] [place] [address]- [address] May, Bipolar I disorder, current or most recent episode depressed , in partial remission F31.75 ; Anxiety disorder, unspecified type F41.9 and Borderline personality disorder F60.3 [facility] [id number] [place] [address]- [address] May, [place] [id number] [place] [address]- [address] May, Anxiety disorder, unspecified F41.9 ; Borderline personality disorder F60.3 and Bipolar II disorder in full remission F31.81 [place] [id number] [place] [address]- [address]15 Apr, Anxiety disorder, unspecified F41.9 [place] [id number] [place] [address]- [address] Apr, Anxiety disorder, unspecified F41.9 [place] [id number] [place] [address]- 6533 Mar, Anxiety disorder, unspecified F41.9 ; Borderline personality disorder F60.3 and Bipolar II disorder in full remission F31.81 [facility] [id number] [place] [address]61- 8264 Dec, Anxiety disorder, unspecified F41.9 [address] [id number] [place] [address]- 8299 Nov, Anxiety disorder, unspecified F41.9 [facility] [id number] [place] [address] 65244- 5689 Nov, Anxiety disorder, unspecified F41.9 ; Nicotine dependence, unspecified, uncomplicated F17.200 ; Borderline personality disorder F60.3 and Bipolar II disorder in full remission F31.81 [facility] [address], [place] [address] Nov, [facility] [address], [place] [address] Oct, Anxiety disorder, unspecified F41.9 [place] [address], [place] [address] Jul, [place] [address], [place] [address] Jul, Anxiety disorder, unspecified F41.9 ; Nicotine dependence, unspecified, uncomplicated F17.200 ; Borderline personality disorder F60.3 and Bipolar II disorder in full remission F31.81 [place] [address], [place] [address] Jun, [place] [id number] [place] [address]- 2883 Jun, Anxiety disorder, unspecified F41.9 ; Nicotine dependence, unspecified, uncomplicated F17.200 ; Borderline personality disorder F60.3 and Bipolar II disorder in full remission F31.81 [place] [address], [place] [address] May, Bipolar 2 disorder F31.81 ; Anxiety disorder, unspecified F41.9 and Nicotine dependence, unspecified, uncomplicated F17.200 [address] [address], [place] [address] Apr, [facility] [address] [place] [address]- 2518 Apr, Bipolar 2 disorder F31.81 ; Anxiety disorder, unspecified F41.9 and Nicotine dependence, unspecified, uncomplicated F17.200 [facility] [address], [place] [address] Apr, Bipolar 2 disorder F31.81 ; Anxiety disorder, unspecified F41.9 and Nicotine dependence, unspecified, uncomplicated F17.200 [facility] [address], [place] [address] Mar, [facility] [id number] [place] [address] 00931- 0896 January, [facility] [id number] [place] [address] 03339- 0094 Dec, Bipolar II disorder F31.81 [facility] [id number] [place] [address] 80017 2546 Dec, [facility] [id number] [place] [address] 18847- 4648 Nov, Bipolar 2 disorder F31.81 and Anxiety disorder, unspecified F41.9 [facility] [id number] [place] [address] 89208- 3093 Nov, Bipolar 2 disorder F31.81 and Anxiety disorder, unspecified F41.9 [facility] [id number] [place] [address] 44296- 7029 Nov, [facility] [id number] [place] [address] 52755- 4143 Nov, [facility] [id number] [place] [address] 65712- 3979 Nov, Bipolar 2 disorder F31.81 and Anxiety disorder, unspecified F41.9 [facility] [address] [address]- 5[address] Nov, Bipolar 2 disorder F31.81 [facility] [id number] [place] [address] 27609- 7636 Nov, [facility] [address], [place] [address]- 25[address] Nov, [facility] [id number] [place] [address] 00769- 4127 Oct, [facility] [address], [place] [address]- 98[address] Oct, [facility] [address] [address] Oct, [facility] [address] [address]- 2507 Oct, Bipolar 2 disorder F31.81 [facility] [id number] [place] [address] 362832- 4926 Sep, [facility] [id number] [place] [address] 771940- 8969 Sep, [facility] [id number] [place] [address] 569311- 2160 Jul, Bipolar 2 disorder F31.81 [facility] [id number] [place] [address] 80318- 7216 Jun, [facility] [id number] [place] [address] 62849- 8249 Jun, Bipolar 2 disorder 296.89 [facility] [id number] [place] [address] 323230- 1168 Jun, [facility] [address] [address] May, [facility] [address] [address]- 5987 Apr, Bipolar 2 disorder 296.89 [facility] [address] [address] Apr, Bipolar 2 disorder 296.89 and Tobacco use disorder 305.1 [facility] [address] 269[address] Mar, Bipolar II disorder 296.89 and Nicotine dependence 305.1 [facility] [address], [place] [address]- 9[address] January, [facility] [place] [facility] [address] [id number] [place] [address]- 4970 Dec, [facility] [place] [facility] [address] [id number] [place] [address]- 1730 Dec, [facility] [place] [facility] [address] [id number] [place] [address]- 8362 Nov, [facility] [place] [facility] [address] [id number] [place] [address]- 2867 Nov, [facility] [place] [facility] [address] [id number] [place] [address]- 4660 Oct, [facility] [place] [facility] [address] [id number] [place] [address]- 4437 Oct, [facility] [place] [facility] [address] [id number] [place] [address]- 7679 Sep, [facility] [place] [facility] [address] [id number] [place] [address]- 5567 Sep, [facility] [place] [facility] [address] [id number] [place] [address]- 4595 Sep, [facility] [place] [facility] [address] [id number] [place] [address]- 5755 Sep, [facility] [place] [facility] [address] [id number] [place] [address]- 1030 Sep, [facility] [place] [facility] [address] [id number] [place] [address]- 8834 18 Sep, 2014 [facility] [place] [facility] [address] [id number] [place] [address]- 8213 17 Sep, 2014 [facility] [place] [facility] [address] [id number] [place] [address]- 4791 Sep, [facility] [place] [facility] [address] [id number] [place] [address]444 Sep, [facility] [place] [facility] [address] [id number] [place] [address]- 7695 Aug, [facility] [place] [facility] [address] [id number] [place] [address]- 4745 Aug, [facility] [place] [facility] [address] [id number] [place] [address]- 7848 Aug, [facility] [place] [facility] [address] [id number] [place] [address]- 0915 Aug, [facility] [place] [facility] [address] [id number] [place] [address]- 3973 Jul, [facility] [place] [facility] [address] [id number] [place] [address]- 6200 Jul, [facility] [place] [facility] [address] [id number] [place] [address]- 5476 16 Jun, 2014 [facility] [place] [facility] [address] [id number] [place] [address]- 6692 16 Jun, 2014 [facility] [place] [facility] [address] [id number] [place] [address]- 9066 Jun, [facility] [place] [facility] [address] [id number] [place] [address]- 0477 Jun, [facility] [place] [facility] [address] [id number] [place] [address]- 8587 Jun, [facility] [place] [facility] [address] [id number] [place] [address]- 9638 May, [facility] [place] [facility] [address] [id number] [place] [address]- 2160 May, [facility] [place] [facility] [address] [id number] [place] [address]- 5028 Apr, [facility] [place] [facility] [address] [id number] [place] [address]- 1224 Apr, [facility] [place] [facility] [address] [id number] [place] [address]- 8953 Mar, [facility] [place] [facility] [address] [id number] [place] [address]- 5321 Mar, [facility] [place] [facility] [address] [id number] [place] [address]- 1901 January, [facility] [place] [facility] [address] [id number] [place] [address]- 9474 January, [facility] [place] [facility] [address] [id number] [place] [address]- 2050 Dec, [facility] [place] [facility] [address] [id number] [place] [address]- 5610 Dec, [facility] [place] [facility] [address] [id number] [place] [address]- 2723 Dec, [facility] [place] [facility] [address] [id number] [place] [address]- 5512 Dec, [facility] [place] [facility] [address] [id number] [place] [address]- 4584 Dec, [facility] [place] [facility] [address] [id number] [place] [address]- 3732 Dec, [facility] [place] [facility] [address] [id number] [place] [address]- 0535 Nov, [facility] [place] [facility] [address] [id number] [place] [address]- 6484 Nov, [facility] [place] [facility] [address] [id number] [place] [address]- 7146 Nov, [facility] [place] [facility] [address] [id number] [place] [address]- 5632 Nov, [facility] [place] [facility] [address] [id number] [place] [address]- 1816 Nov, [facility] [place] [facility] [address] [id number] [place] [address]- 5663 Nov, [facility] [place] [facility] [address] [id number] [place] [address]- 7316 Nov, [facility] [place] [facility] [address] [id number] [place] 34[address] Nov, [facility] [place] [facility] [address] [id number] [place] [address]- 1987 Oct, [facility] [place] [facility] [address] [id number] [place] [address]- 3265 Oct, [facility] [place] [facility] [address] [id number] [place] [address]- 7337 Aug, [facility] [place] [facility] [address] [id number] [place] 8699 Aug, [facility] [place] [facility] [address] [id number] [place] [address]- 2617 Aug, [facility] [place] [facility] [address] [id number] [place] [address]- 9018 Aug, [facility] [place] [facility] [address] [id number] [place] [address]- 4732 Jul, [facility] [place] [facility] [address] [id number] [place] [address]- 8369 Jun, [facility] [place] [facility] [address] [id number] [place] [address]- 4070 Apr, [facility] [place] [facility] [address] [id number], [place] [address]- 6756 Apr, [facility] [place] [facility] [address] [id number], [place] [address]- 9134 Mar, [facility] [place] [facility] [address] [id number] [place] [address]- 2664 Nov, [facility] [place] [facility] [address] [id number] [place] [address]- 8811 Nov, [facility] [place] [facility] [address] [id number] [place] 4471 Nov, [facility] [place] [facility] [address] [id number] [place] [address]- 2546 Nov, [facility] [address] [id number] [place] [address]- 2546 Oct, [facility] [place] [facility] [address] [id number] [place] [address]- 2546 Oct, [facility] [address] [id number] [place] [address]- 2546 Oct, [facility] [place] [facility] [address] [id number] [place] [address]- 2546 Sep, [facility] [address] [id number] [place] [address]- 2546 Sep, [facility] [place] [facility] [address] [id number] [place] [address]- 2546 Aug, [facility] [place] [facility] [address] [id number] [place] [address]- 2546 Aug, [facility] [address] [id number] [place] [address]- 6686 Jun, [facility] [place] [facility] [address] [id number] [place] [address]- 2546 Apr, [facility] [address] [id number] [place] [address]- 2546 Apr, [facility] [place] [facility] [address] [id number] [place] [address]- 2546 Mar, [facility] [place] [facility] [address] [id number] [place] [address]- 2546 Mar, [facility] [place] [facility] [address] [id number] [place] [address]- 2546 January, [facility] [place] [facility] [address] [id number] [place] [address]- 2546 January, [facility] [place] [facility] [address] [id number] [place] [address]- 8231 Dec, [facility] [address] [facility] [id number], [place] [address]- 0293 Nov, [facility] [address], [place] [address]- 9863 Nov, [facility] [address], [place] [address]- 6698 Oct, [facility] [address], [place] [address]- 0799 Oct, [facility] [address], [place] [address]- 0531 Sep, [facility] [address] [place] [address] 616355- 6746 Aug, [facility] [address] 8721 Aug, [facility] [address], [place] [address]- 1256 Aug, [facility] [address]- 3379 Aug, [facility] [address] [address]- 7008 Aug, [facility] [address], [place] [address]- 5172 Jul, [facility] [address], [place] [address]- 3398 Jul, [facility] [id number] [address]- 4277 Aug, IMMUNIZATIONS No Known Immunizations SOCIAL HISTORY Never Assessed REASON FOR VISIT Requests return call PLAN OF CARE VITAL SIGNS MEDICATIONS Unknown Medications RESULTS No Results PROCEDURES No Known procedures INSTRUCTIONS MEDICATIONS ADMINISTERED No Known Medications MEDICAL (GENERAL) HISTORY Type Description Date Medical History chronic pain Medical History hypothyroidism Medical History HTN Medical History GERD Medical History DM type 2 non insulin dependant Medical History COPD
--- OUTSIDE RECORDS SUMMARY | 2018-11-18 20:15 | XMS REPORT ---
Author Author BIANCA LIM Organization [facility] Address [address] [place] [address] Care Team Providers Care Water Mangle Tender Name Role Phone BIANCA LIM Unavailable PROBLEMS Type Condition ICD9-CM Code [id number] Code Onset Dates Condition Status SNOMED Code Problem Anxiety disorder, unspecified type F41.9 Active 639729877 Problem Bipolar I disorder, current or most recent episode depressed, in partial remission F31.75 Active 777549967 Problem Nicotine dependence, unspecified, uncomplicated F17.200 Active 18474709 Problem Anxiety disorder, unspecified F41.9 Active [id number] Problem Borderline personality disorder F60.3 Active 92207258 Problem Bipolar II disorder in full remission F31.81 Active [id number] ALLERGIES No Information ENCOUNTERS Encounter Location Date Diagnosis [facility] [id number] [place] [address] 62173- 4319 January, [facility] [id number] [place] [address] 88593- 9790 Dec, Anxiety disorder, unspecified F41.9 ; Borderline personality disorder F60.3 and Bipolar II disorder in full remission F31.81 [facility] [id number] [place] [address] 83984- 2758 Nov, Bipolar I disorder, current or most recent episode depressed , in partial remission F31.75 ; Anxiety disorder, unspecified type F41.9 and Borderline personality disorder F60.3 [facility] [id number] [place] [address] 19034- 5117 Nov, Bipolar I disorder, current or most recent episode depressed , in partial remission F31.75 ; Anxiety disorder, unspecified type F41.9 and Borderline personality disorder F60.3 [facility] [id number] [place] [address] 45856- 3603 Nov, Anxiety disorder, unspecified F41.9 [facility] [address] [address] Nov, Bipolar I disorder, current or most recent episode depressed , in partial remission F31.75 ; Anxiety disorder, unspecified type F41.9 and Borderline personality disorder F60.3 [facility] [place] [id number] [address] Nov, Bipolar II disorder in full remission F31.81 [facility] [address] [place] [address] 24001- 5057 Oct, Anxiety disorder, unspecified F41.9 [facility] [id number] [place] [address] 69253- 0229 Sep, Anxiety disorder, unspecified F41.9 [facility] [address] [place] [address] 08481- 3011 Sep, [facility] [address] [place] [address] 82506- 3125 Aug, [facility] [id number] [place] [address] 72888- 5969 Aug, Anxiety disorder, unspecified F41.9 [facility] [address] [address] 6289 Aug, [facility] [id number] [place] [address] 91480- 2398 Jul, Anxiety disorder, unspecified F41.9 ; Borderline personality disorder F60.3 and Bipolar II disorder in full remission F31.81 [facility] [address] [place] [address] 53832- 8089 Jul, Borderline personality disorder F60.3 and Anxiety disorder, unspecified F41.9 [facility] [address] [address] 3870 Jul, [facility] [address] [address] Jun, Bipolar I disorder, current or most recent episode depressed , in partial remission F31.75 ; Anxiety disorder, unspecified type F41.9 and Borderline personality disorder F60.3 [facility] [address] [address] 3168 Jun, Anxiety disorder, unspecified F41.9 [facility] [address] [place] [address] 21341- 9249 May, Bipolar I disorder, current or most recent episode depressed , in partial remission F31.75 ; Anxiety disorder, unspecified type F41.9 and Borderline personality disorder F60.3 [facility] [address] [place] [address] 94004- 6451 May, [facility] [address] [place] [address] 67151- 2563 May, Anxiety disorder, unspecified F41.9 ; Borderline personality disorder F60.3 and Bipolar II disorder in full remission F31.81 [facility] [address] [place] [address] 97189- 4296 Apr, Anxiety disorder, unspecified F41.9 [facility] [address] [address]- 2130 Apr, Anxiety disorder, unspecified F41.9 [facility] [address] [address]- 9859 Mar, Anxiety disorder, unspecified F41.9 ; Borderline personality disorder F60.3 and Bipolar II disorder in full remission F31.81 [facility] [address] [address]- 6985 Dec, Anxiety disorder, unspecified F41.9 [facility] [address] [address]- 2718 Nov, Anxiety disorder, unspecified F41.9 [facility] [id number] [place] [address] 02027- 8083 Nov, Anxiety disorder, unspecified F41.9 ; Nicotine dependence, unspecified, uncomplicated F17.200 ; Borderline personality disorder F60.3 and Bipolar II disorder in full remission F31.81 [facility] [address] [address]- 7944 Nov, [place] [address] [place] [address] 59287- 7261 Oct, Anxiety disorder, unspecified F41.9 [place] [address] [place] [address] 86884- 8895 Jul, [place] [address] [place] [address] 63897- 3324 Jul, Anxiety disorder, unspecified F41.9 ; Nicotine dependence, unspecified, uncomplicated F17.200 ; Borderline personality disorder F60.3 and Bipolar II disorder in full remission F31.81 [facility] [address] [address]- 3105 Jun, [facility] [address] [place] [address] 86591- 0980 Jun, Anxiety disorder, unspecified F41.9 ; Nicotine dependence, unspecified, uncomplicated F17.200 ; Borderline personality disorder F60.3 and Bipolar II disorder in full remission F31.81 [place] [address] [address]- 3964 May, Bipolar 2 disorder F31.81 ; Anxiety disorder, unspecified F41.9 and Nicotine dependence, unspecified, uncomplicated F17.200 [place] [address] [address]- 5352 Apr, [place] [address] [place] [address] 09423- 6583 Apr, Bipolar 2 disorder F31.81 ; Anxiety disorder, unspecified F41.9 and Nicotine dependence, unspecified, uncomplicated F17.200 [place] [address] [address]- 4212 Apr, Bipolar 2 disorder F31.81 ; Anxiety disorder, unspecified F41.9 and Nicotine dependence, unspecified, uncomplicated F17.200 [facility] [address] [address]- 6983 Mar, [facility] [id number] [place] [address] 19584- 6456 January, [facility] [id number] [place] [address] 32145- 5103 Dec, Bipolar II disorder F31.81 [facility] [id number] [place] [address] 87871- 9986 Dec, [facility] [id number] [place] [address] 10220- 6220 Nov, Bipolar 2 disorder F31.81 and Anxiety disorder, unspecified F41.9 [facility] [id number] [place] [address] 34319- 6815 Nov, Bipolar 2 disorder F31.81 and Anxiety disorder, unspecified F41.9 [facility] [address] [place] [address] 25214- 6237 Nov, [facility] [address] [address]- 7104 Nov, [facility] [address] [address]- 8467 Nov, Bipolar 2 disorder F31.81 and Anxiety disorder, unspecified F41.9 [facility] [address] [address]- 6960 Nov, Bipolar 2 disorder F31.81 [facility] [address] [address]- 0726 Nov, [facility] [id number] [place] [address] 03790- 9294 Nov, [facility] [address] [address]- 6142 Oct, [facility] [address] [address]- 3276 Oct, [facility] [address] [address]- 1266 Oct, [facility] [address] [place] [address] 82962- 8126 Oct, Bipolar 2 disorder F31.81 [facility] [address] [place] [address]- 6566 Sep, [facility] [address] [address]- 3956 Sep, [facility] [address] [address]- 5590 Jul, Bipolar 2 disorder F31.81 [facility] [address] [address]- 3162 Jun, [facility] [address] [address]- 2681 Jun, Bipolar 2 disorder 296.89 [facility] [address] [address]- 4036 Jun, [facility] [address] [address]- 2506 May, [facility] [address] [address]- 1548 Apr, Bipolar 2 disorder 296.89 [facility] [address] [address]- 6316 Apr, Bipolar 2 disorder 296.89 and Tobacco use disorder 305.1 [facility] [address] [address]- 1597 Mar, Bipolar II disorder 296.89 and Nicotine dependence 305.1 [facility] [address] [facility] [id number] [place] [address]- 3638 January, [facility] [place] [facility] [address] [facility] [id number] [place] [address]- 5042 Dec, [facility] [place] [facility] [address] [facility] [id number] [place] [address]- 9432 Dec, [facility] [place] [facility] [address] [id number] [place] [address]- 7501 Nov, [facility] [place] [facility] [address] [facility] [id number] [place] [address]- 4663 Nov, [facility] [place] [facility] [address] [facility] [id number] [place] [address]- 0532 Oct, [facility] [place] [facility] [id number] [place] [address]- 8066 Oct, [facility] [address] [facility] [id number] [place] [address]- 0323 Sep, [facility] [place] [facility] [address] [facility] [id number] [place] [address]- 9370 Sep, [facility] [place] [facility] [address] [facility] [id number] [place] [address]- 3195 Sep, [facility] [place] [facility] [address] [facility] [id number] [place] [address]- 1117 Sep, [facility] [place] [facility] [address] [facility] [id number] [place] [address]- 3319 Sep, [facility] [place] [facility] [address] [facility] [id number] [place] [address]- 9738 Sep, [facility] [place] [facility] [address] [facility] [id number] [place] [address]- 6909 17 Sep, 2014 [facility] [place] [facility] [address] [facility] [id number] [place] [address]77 Sep, [facility] [place] [facility] [address] [facility] [id number] [place] Sep, [facility] [place] [facility] [address] [id number] [place] [address]- 3255 Aug, [facility] [place] [facility] [address] [id number] [place] [address]- 7525 Aug, [facility] [place] [facility] [address] [id number] [place] [address]- 2675 Aug, [facility] [place] [facility] [address] [id number] [place] [address]- 9919 Aug, [facility] [place] [facility] [address] [id number] [place] [address]- 2353 Jul, [facility] [place] [facility] [address] [id number] [place] [address]- 0663 Jul, [facility] [place] [facility] [address] [id number] [place] [address]- 2472 Jun, [facility] [place] [facility] [address] [id number] [place] [address]- 6815 Jun, [facility] [place] [facility] [address] [id number] [place] [address]- 7388 Jun, [facility] [place] [facility] [address] [id number] [place] [address]- 7107 Jun, [facility] [place] [facility] [address] [id number] [place] [address]- 8691 Jun, [facility] [place] [facility] [address] [id number] [place] [address]- 1784 May, [facility] [place] [facility] [address] [id number] [place] [address]- 3979 May, [facility] [place] [facility] [address] [id number] [place] [address]- 8994 Apr, [facility] [place] [facility] [address] [id number] [place] [address] Apr, [facility] [place] [facility] [address] [id number] [place] [address]- 4355 Mar, [facility] [place] [facility] [address] [id number] [place] [address]- 6270 Mar, [facility] [place] [facility] [address] [id number] [place] [address]- 6658 January, [facility] [place] [facility] [address] [id number] [place] [address]- 1207 January, [facility] [place] [facility] [address] [id number] [place] [address]- 8549 Dec, [facility] [place] [facility] [address] [id number] [place] [address]- 8130 Dec, [facility] [place] [facility] [address] [id number] [place] [address]- 5157 Dec, [facility] [place] [facility] [address] [id number] [place] [address]- 6637 Dec, [facility] [place] [facility] [address] [id number] [place] [address]- 6741 Dec, [facility] [place] [facility] [address] [id number] [place] [address]- 5057 Dec, [facility] [place] [facility] [address] [id number] [place] [address]- 4589 Nov, [facility] [place] [facility] [address] [id number] [place] [address]- 5313 Nov, [facility] [place] [facility] [address] [id number] [place] [address]- 8196 Nov, [facility] [place] [facility] [address] [id number] [place] [address]- 3044 Nov, [facility] [place] [facility] [address] [id number] [place] [address]- 6364 Nov, [facility] [place] [facility] [address] [id number] [place] [address]- 8976 Nov, [facility] [place] [facility] [address] [id number] [place] 8014 Nov, [facility] [place] [facility] [address] [id number] [place] [address]- 8375 Nov, [facility] [place] [facility] [address] [id number] [place] [address]- 5231 Oct, [facility] [place] [facility] [address] [id number] [place] [address]- 9886 Oct, [facility] [place] [facility] [address] [id number] [place] [address] Aug, [facility] [place] [facility] [address] [id number] [place] 3580 Aug, [facility] [place] [facility] [address] [id number] [place] [address]- 3632 Aug, [facility] [place] [facility] [address] [id number] [place] [address]- 4640 Aug, [facility] [place] [facility] [address] [id number] [place] [address]- 5090 Jul, [facility] [place] [facility] [address] [id number] [place] [address]- 3937 Jun, [facility] [place] [facility] [address] [id number] [place] [address]- 9000 Apr, [facility] [place] [facility] [address] [id number] [place] [address]- 1131 Apr, [facility] [place] [facility] [address] [id number] [place] [address]- 5844 Mar, [facility] [place] [facility] [address] [id number] [place] [address]- 8864 Nov, [facility] [place] [facility] [address] [id number] [place] [address]- 4956 Nov, [facility] [place] [facility] [address] [id number] [place] [address]- 2546 Nov, [facility] [address] [id number] [place] [address]- 3216 Nov, [facility] [place] [facility] [address] [id number] [place] [address]- 2546 Oct, [facility] [address] [id number] [place] [address]- 2546 Oct, [facility] [place] [facility] [address] [id number] [place] [address]- 2546 Oct, [facility] [address] [id number] [place] [address]- 0166 Sep, [facility] [address] [id number] [place] [address]- 8926 Sep, [facility] [address] [id number] [place] [address]- 2546 Aug, [facility] [address] [id number] [place] [address]- 1206 Aug, [facility] [address] [id number] [place] [address]- 1676 Jun, [facility] [address] [id number] [place] [address]- 2546 Apr, [facility] [place] [facility] [address] [id number] [place] [address]- 2546 Apr, [facility] [address] [id number] [place] [address]- 2546 Mar, [facility] [place] [facility] [address] [id number] [place] [address]- 2546 Mar, [facility] [place] [facility] [address] [id number] [place] [address]- 2546 January, [facility] [place] [facility] [address] [id number] [place] [address]- 7629 January, [facility] [address] [address]- 4970 Dec, [facility] [address] [address]- 5192 Nov, [facility] [address] [address]- 0020 Nov, [facility] [id number] [place] [address] 00324- 3170 Oct, [facility] [address] [place] [address] 27757- 1724 Oct, [facility] [id number] [place] [address] 87828- 1661 Sep, [facility] [id number] [place] [address] 46114- 4631 Aug, [facility] [id number] [address]- 7805 Aug, [facility] [address] [address]- 5545 Aug, [facility] [address] [address]- 5576 Aug, [facility] [address] [address]- 6306 Aug, [facility] [address] [address]- 4534 Jul, [facility] [address] [address]- 3467 Jul, [facility] [id number] [address]- 0752 Aug, IMMUNIZATIONS No Known Immunizations SOCIAL HISTORY Never Assessed REASON FOR VISIT fu, Depression. PLAN OF CARE Activity Details Follow Up prn Reason: VITAL SIGNS MEDICATIONS Unknown Medications RESULTS No Results PROCEDURES Procedure Date Ordered Result Body Site [facility] VISIT MENTAL HEALTH ESTAB PT Jun 14, 2017 Psychotherapy, patient &/family, 30 minutes, established patient Jun 14, 2017 INSTRUCTIONS MEDICATIONS ADMINISTERED No Known Medications MEDICAL (GENERAL) HISTORY Type Description Date Medical History chronic pain Medical History hypothyroidism Medical History HTN Medical History GERD Medical History DM type 2 non insulin dependant Medical History COPD
--- OUTSIDE RECORDS SUMMARY | 2018-11-18 20:15 | XMS REPORT ---
Author BIANCA Hackett Organization [employer] Address Unknown Phone Unavailable Care Team Providers Care Demonstrator Knitting Name Role Phone BIANCA LIM CP Unavailable Allergies No Known Allergies Problems Problem Type Condition Code Onset Dates Condition Status Assessment Bipolar 2 disorder F31.81 Active Problem Bipolar 2 disorder F31.81 Active Medications No Known Medications Procedures Procedure Coding System Code Date Psychotherapy, patient &/family, 30 minutes, established patient CPT-4 44914 Jul 07, 2015 [facility] VISIT MENTAL HEALTH ESTAB PT CPT-4 G0470 Jul 07, 2015 Results No Known Results Summary Purpose [employer] Submission
--- OUTSIDE RECORDS SUMMARY | 2018-11-18 20:15 | XMS REPORT ---
Author Author ANDERSON YADAV Organization [employer] Address Unknown Phone Unavailable Care Team Providers Care Creel Selector Name Role Phone ANDERSON YADAV Unavailable Allergies No Known Allergies Problems Problem Type Condition Code Onset Dates Condition Status Problem Bipolar 2 disorder F31.81 Active Medications Medication Code System Code Instructions Start Date End Date Status Dosage Klonopin [facility] [address]-43 0.5 MG Orally Twice a day PRN anxiety Oct 30, 2014 1 tablet Cymbalta [facility] [address]-37 60 MG Orally Once a day Oct 30, 2014 take 2 capsule by Oral route 1 time per day Abilify [facility] [address]-57 15 MG Orally Once a day Oct 30, 2014 take 1 tablet (15 mg) by oral route once daily Results No Known Results Summary Purpose [employer] Submission
--- OUTSIDE RECORDS SUMMARY | 2018-11-18 20:15 | XMS REPORT ---
Author Author ANDERSON YADAV Organization [employer] Address Unknown Phone Unavailable Care Team Providers Care Engraver Jewelry Name Role Phone ANDERSON YADAV Unavailable Allergies No Known Allergies Problems Problem Type Condition ICD-9 Code Onset Dates Condition Status Problem Tobacco use disorder 305.1 Active Problem Bipolar 2 disorder 296.89 Active Medications Medication Code System Code Instructions Start Date End Date Status Dosage Klonopin [facility] [address]-75 0.5 MG Orally Twice a day PRN anxiety Oct 30, 2014 1 tablet Results No Known Results Summary Purpose [employer] Submission
[2018-11-18 21:09] LABS: ABG BASE EXCESS 1.4 MMOL/L (-2.5-2.5); ABG OXYGEN SATURATION 98 % (94-100); ABG PCO2 48 MMHG (35-45); ABG PH 7.36 (7.37-7.43); ABG PO2 103 MMHG (79-93); ABG TCO2 27.5 MMOL/L (21.0-31.0); ALLENS TEST YES-POS
[2018-11-18 21:10] LABS: INSPIRED O2 80%; VENTILATOR YES
--- NOTE | 2018-11-18 21:10 | NUR ---
Reported temperature of [address] Schmitt as well as high blood pressure. Orders received.
[2018-11-18 21:11] LABS: PATIENT TEMP 100.2
[2018-11-18] MEDS ORDERED: ACETAMINOPHEN 650 MG SUPP (TYLENOL) PR ONE (21:15)
[2018-11-18] MEDS ORDERED: NITROGLYCERIN 2% OINT 1 GM UNIT DOSE PACKET TOP PRN (21:15)
[2018-11-18] MEDS: NS IV 1000 ML 1,000 ML IV SCH (21:39)
[2018-11-18] MEDS: methylPREDNISolone 40 MG/ML (Solu-MEDROL) VIAL IV SCH (23:35)
[2018-11-19] VITALS (35 sets, daily range): BP systolic 87–175; BP diastolic 46–96
[2018-11-19] MEDS ORDERED: RT-ALBUTEROL/IPRATROPIUM 3 ML (DUONEB) VIAL INH PRN
[2018-11-19] MEDS: PROPOFOL DRIP (ICU) 100 ML IV SCH ×6 (00:16→20:03)
[2018-11-19] MEDS ORDERED: RT-ALBUTEROL/IPRATROPIUM 3 ML (DUONEB) VIAL ONE (00:29)
[2018-11-19] MEDS ORDERED: inSUlin ASPART (NovoLOG) 1 UNIT/0.01 ML (CHARGE PER UNIT) ONE (00:31)
[2018-11-19] MEDS: inSUlin ASPART (NovoLOG) 1 UNIT/0.01 ML (CHARGE PER UNIT) SC SCH ×5 (00:37→18:59)
[2018-11-19] MEDS: RT-ALBUTEROL/IPRATROPIUM 3 ML (DUONEB) VIAL INH SCH ×6 (01:00→22:29)
[2018-11-19 03:39] LABS: ABG BASE EXCESS 1.6 MMOL/L (-2.5-2.5); ABG OXYGEN SATURATION 91 % (94-100); ABG PCO2 55 MMHG (35-45); ABG PO2 68 MMHG (79-93); ABG TCO2 28.8 MMOL/L (21.0-31.0); ALLENS TEST YES-POS; INSPIRED O2 50%
[2018-11-19 03:40] LABS: PATIENT TEMP 98.8; VENTILATOR YES
[2018-11-19 03:41] LABS: ABG PH 7.31 (7.37-7.43)
[2018-11-19 03:51] LABS: BASOPHILS % (AUTO) 0 % (0-10); EOSINOPHILS % (AUTO) 0 % (0-10); HEMATOCRIT 40 % (35-52); LYMPHOCYTES # (AUTO) 0.8 X 10^3 (1.0-4.0); LYMPHOCYTES % (AUTO) 9 % (12-44); MEAN CORPUSCULAR HEMOGLOBIN 28 PG (25-34); MEAN CORPUSCULAR HGB CONC 30 G/DL (32-36); MEAN CORPUSCULAR VOLUME 92 FL (80-99); MEAN PLATELET VOLUME 9.9 FL (7.4-10.4); MONOCYTES # (AUTO) 0.3 X 10^3 (0.0-1.0); MONOCYTES % (AUTO) 4 % (0-12); NEUTROPHILS # (AUTO) 7.7 X 10^3 (1.8-7.8); NEUTROPHILS % (AUTO) 87 % (42-75); PLATELET COUNT 232 10^3/uL (130-400); RED CELL DISTRIBUTION WIDTH 14.7 % (10.0-14.5); WHITE BLOOD COUNT 8.8 10^3/uL (4.3-11.0)
[2018-11-19 04:16] LABS: ANISOCYTOSIS SLIGHT; BAND NEUTROPHILS 8 %; BASOPHILS % (MANUAL) 0 %; EOSINOPHILS % (MANUAL) 0 %; LYMPHOCYTES % (MANUAL) 6 %; METAMYELOCYTES % 1 %; MONOCYTES % (MANUAL) 6 %; NEUTROPHILS % (MANUAL) 78 %; NUCLEATED RED BLOOD CELLS 1; REACTIVE LYMPHOCYTES 1 %
[2018-11-19 04:22] LABS: ALANINE AMINOTRANSFERASE 57 U/L (0-55); ALBUMIN 3.6 GM/DL (3.2-4.5); ALKALINE PHOSPHATASE 116 U/L (40-136); BILIRUBIN,TOTAL 0.7 MG/DL (0.1-1.0); BUN/CREATININE RATIO 16; CALCIUM 8.5 MG/DL (8.5-10.1); CARBON DIOXIDE 26 MMOL/L (21-32); CHLORIDE 106 MMOL/L (98-107); CREATININE SERUM 0.77 MG/DL (0.60-1.30); GFR ESTIMATED > 60; GLUCOSE 251 MG/DL (70-105); MAGNESIUM 2.4 MG/DL (1.8-2.4); PHOSPHORUS 1.5 MG/DL (2.3-4.7); SODIUM 142 MMOL/L (135-145); TOTAL PROTEIN 6.7 GM/DL (6.4-8.2)
[2018-11-19] MEDS: methylPREDNISolone 40 MG/ML (Solu-MEDROL) VIAL IV SCH ×4 (04:49→22:23)
[2018-11-19] MEDS: POTASSIUM CL 10MEQ/50ML IVPB 50 ML IV SCH ×5 (05:20→09:29)
--- NOTE | 2018-11-19 05:35 | Diagnostic Imaging Report ---
INDICATION: Respiratory failure. COMPARISON: CT chest dated 06/28/2018 FINDINGS: Single frontal radiographic view of the chest was obtained and demonstrates indwelling endotracheal tube with tip below the clavicular heads and above the claudia. Gastric tube tip terminates in the stomach. Cardiac silhouette is moderately enlarged, as is pulmonary vasculature. Pulmonary interstitium also appears to be slightly prominent. Note is made of Willa B-lines. There are also patchy alveolar opacities within the left lung base partially obscuring the left hemidiaphragm. Small effusion is also suspected on the left. Bony structures show no gross acute abnormalities. No pneumothorax is seen on either side. IMPRESSION: 1. Lines and tubes as above. 2. Cardiomegaly with sequela of CHF including probable interstitial pulmonary edema and left basilar effusion. Associated left basilar atelectasis and/or infiltrate is also noted. Dictated by: Dictated on workstation # [id number]
[2018-11-19] MEDS: NS IV 1000 ML 1,000 ML IV SCH ×3 (06:21→18:58)
[2018-11-19] MEDS: MAGNESIUM 1 GM/100 ML IVPB 100 ML IV SCH (06:21)
[2018-11-19] MEDS: KCL 20 MEQ TAB (K-DUR) PO SCH (06:22)
[2018-11-19] MEDS ORDERED: POTASSIUM PHOSPHATE INJ 30 MM in NS (IVPB) 250 ML IV ONE (06:45)
[2018-11-19] MEDS ORDERED: POTASSIUM CL 10MEQ/50ML IVPB 50 ML IV NR (06:45)
--- NOTE | 2018-11-19 06:58 | Pulmonary Consultation ---
History of Present Illness History of Present Illness Date of Consultation 11/19/18 06:53 Time Seen by Provider: 06:53 Date of Admission History of Present Illness 67yo with hx of morbid obesity, MANNY presented to [facility] secondary to worsening SOB. While at [facility] pt had worsening hypoxia and respiratory failure. She required intubation and mechanical ventilation. CT of chest was attempted however pt was too big for scanner. Pt received Rocephin and Azithromycin prior to transfer. Pt was also given Bumex and Lovenox therapeutic dose. Pt was transferred here for higher level of care. Unable to obtain ROS secondary to being sedated on vent. Allergies and Home Medications Allergies Coded Allergies: clarithromycin (Verified Allergy, Unknown, 11/18/18) moxifloxacin (Verified Allergy, Unknown, 11/18/18) nitrofurantoin (Verified Allergy, Unknown, 11/18/18) penicillin G (Verified Allergy, Unknown, 11/18/18) sulfacetamide (Verified Allergy, Unknown, 11/18/18) trazodone (Verified Allergy, Unknown, 11/18/18) Review of Systems Time Seen by Provider: 06:59 Sepsis Event Evaluation Height, Weight, BMI Height: 5'4.00" Weight: 274lbs. 3.0oz. 124.856082oa; 46.3 BMI Method: Exam Exam Vital Signs Date Time Temp Pulse Resp B/P (MAP) Pulse Ox O2 Delivery O2 Flow Rate FiO2 11/19/18 06:28 99 29 93 40 11/19/18 06:00 101 27 156/87 (110) 93 Mechanical Ventilator 40.00 11/19/18 05:35 104 14 147/85 (105) 94 Mechanical Ventilator 40.00 11/19/18 05:02 98 26 139/82 94 11/19/18 05:00 94 25 139/82 (101) 95 Mechanical Ventilator 50.00 11/19/18 04:42 101 27 95 50 11/19/18 04:20 Mechanical Ventilator 11/19/18 04:20 98.4 11/19/18 04:00 99 25 149/80 (103) 93 Mechanical Ventilator 50.00 11/19/18 03:00 100 22 156/95 (115) 94 Mechanical Ventilator 50.00 11/19/18 02:00 102 21 146/95 (112) 95 Mechanical Ventilator 50.00 11/19/18 01:10 93 21 95 Mechanical Ventilator 50.00 11/19/18 01:01 84 22 99 60 11/19/18 01:00 82 11/19/18 01:00 82 21 175/91 (119) 97 Mechanical Ventilator 60.00 11/19/18 00:30 Mechanical Ventilator 11/19/18 00:16 21 155/97 11/19/18 00:15 84 21 144/96 (112) 98 Mechanical Ventilator 60.00 11/19/18 00:00 83 21 96 Mechanical Ventilator 60.00 11/19/18 00:00 99.5 11/18/18 23:32 89 97 80 11/18/18 23:16 99.7 11/18/18 23:00 89 21 163/100 (121) 96 Mechanical Ventilator 60.00 11/18/18 22:52 89 22 172/105 (127) 97 Mechanical Ventilator 60.00 11/18/18 22:52 89 22 97 80 11/18/18 22:00 85 22 166/105 (125) 93 Mechanical Ventilator 80.00 11/18/18 22:00 100.2 11/18/18 21:45 85 22 150/96 94 Mechanical Ventilator 80.00 11/18/18 21:00 87 21 155/96 (115) 95 Mechanical Ventilator 80.00 11/18/18 20:45 89 21 169/107 (127) 96 Mechanical Ventilator 80.00 11/18/18 20:30 87 22 170/100 (123) 96 Mechanical Ventilator 80.00 11/18/18 20:15 87 16 180/103 (128) 96 Mechanical Ventilator 80.00 11/18/18 20:15 Isolette 11/18/18 20:04 86 26 187/113 (137) 94 Mechanical Ventilator 80.00 11/18/18 20:02 87 11/18/18 20:00 101.0 11/18/18 19:53 89 22 97 80 I & O 11/19/18 07:00 Intake Total 1500 ml Output Total 1225 ml Balance 275 ml Height & Weight Height: 5'4.00" Weight: 274lbs. 3.0oz. 124.725257wo; 46.3 BMI Method: General Appearance: Other (sedated on vent) HEENT: PERRL/EOMI, Pharynx Normal, Other (ET tube in place ) Neck: Full Range of Motion, Non Tender, Supple Respiratory: No Accessory Muscle Use, No Respiratory Distress, Decreased Breath Sounds Capillary Refill: Less Than 3 Seconds Extremity: Normal Capillary Refill Neurologic/Psychiatric: Other (sedated) Results Lab Laboratory Tests 11/19/18 03:00 Assessment/Plan Assessment/Plan Acute on chronic respiratory failure -Continue ventilator support -Check BNP, and give lasix 40mg x 1 -Decrease IVF to 50 cc/hr Pneumonia -PT has multiple allergies -Start Cefepime -MRSA nasal swab Fever without leukocytosis -Check influenza --Walters cultures pending Diaphoresis probably secondary to fever -Check troponins x 3 [id number] -BS are high -check EKG Hypokalemia, hypophos -replace ROBERTO VAUGHN DO Nov 19, 2018 06:58
[2018-11-19] MEDS ORDERED: FUROSEMIDE 40 MG/4 ML INJ (LASIX) IVP NR (07:00)
[2018-11-19 07:31] LABS: BILIRUBIN,URINE NEGATIVE (NEGATIVE); CLARITY,URINE CLEAR; COLOR,URINE YELLOW; GLUCOSE, URINE (UA) 4+ (NEGATIVE); KETONES,URINE 4+ (NEGATIVE); LEUKOCYTE ESTERASE ,URINE 1+ (NEGATIVE); NITRITE,URINE POSITIVE (NEGATIVE); PH,URINE 6 (5-9); PROTEIN,URINE 3+ (NEGATIVE); UROBILINOGEN,URINE 1 MG/DL (NORMAL)
[2018-11-19 07:40] LABS: BACTERIA,URINE LARGE /HPF; WBC,URINE 0-2 /HPF
--- NOTE | 2018-11-19 07:43 | Diagnostic Imaging Report ---
INDICATION: Followup. Respiratory failure. COMPARISON: 11/18/2018 FINDINGS: Single frontal radiographic view of the chest was obtained and again demonstrates indwelling endotracheal tube with tip below the clavicular heads and above the claudia. Gastric tube is noted, but tip is obscured. Cardiac silhouette remains enlarged. Pulmonary vasculature remains prominent. There is also persistent diffuse interstitial edema as well as persistent dense opacification of the left base obscuring the left hemidiaphragm. No large effusion is seen on the right. No pneumothorax is identified on either side. Bony structures show no gross acute abnormalities. IMPRESSION: 1. Stable exam of the chest showing cardiomegaly with pulmonary vascular congestion and probable interstitial pulmonary edema. 2. Stable left basilar airspace disease suspicious for effusion with associated infiltrate and/or atelectasis. Dictated by: Dictated on workstation # [id number]
[2018-11-19] MEDS ORDERED: FLU QUADRIvalent (5+ YOA) 2018-2019 (AFLURIA) 0.5 ML IM ONE (07:45)
[2018-11-19] MEDS: CEFEPIME IV SCH ×6 (08:15→18:02)
[2018-11-19] MEDS: WATER IV SCH ×6 (08:15→18:02)
[2018-11-19] MEDS: ENOXAPARIN 40 MG/0.4 ML (LOVENOX) SYR SC SCH ×2 (08:15→18:02)
[2018-11-19] MEDS: PANTOPRAZOLE 40 MG (PROTONIX) VIAL IV SCH (08:15)
[2018-11-19] MEDS ORDERED: FAMOTIDINE 20MG/2ML IV (PEPCID) IV SCH (09:00)
--- NOTE | 2018-11-19 09:57 | History & Physical-Hospitalist ---
LISA ACHARYA DO 11/19/18 0957: History of Present Illness HPI/Chief Complaint CC: Respiratory failure HPI: This is a 67yoWF clinic patient of Dr Michaud who presented [place] [facility] [place] w/ dyspnea and failed biPAP so she was intubated and sent to [facility]. Currently patient is sedated and intubated and no hx obtainable. Pr being treated for pneumonia and UTI. Source: RN/MD Exam Limitations: clinical condition (intubation) Date Seen 11/19/18 Time Seen by a Provider: 09:30 Attending Physician Flavia Schmitt MD PCP Landy Michaud MD Referring Physician Date of Admission Nov 18, 2018 at 20:03 Home Medications & Allergies Home Medications Reviewed patient Home Medication Reconciliation performed by pharmacy medication reconciliations aviation technician aircraft and/or nursing. Patients Allergies have been reviewed. Allergies Allergies Coded Allergies clarithromycin (Verified Allergy, Unknown, 11/18/18) moxifloxacin (Verified Allergy, Unknown, 11/18/18) nitrofurantoin (Verified Allergy, Unknown, 11/18/18) penicillin G (Verified Allergy, Unknown, Pt has received Omnicef & cephalexin in the past, 11/19/18) Pt has received Omnicef & cephalexin in the past (from External med history) sulfacetamide (Verified Allergy, Unknown, 11/18/18) trazodone (Verified Allergy, Unknown, 11/18/18) Past Ijqachd-Ogibme-Wnpgic Hx Past Med/Social Hx: Reviewed Nursing Past Med/Soc Hx, Reviewed and Corrections made Past Medical History Respiratory: Sleep Apnea Cardiac: Hypertension Review of Systems Constitutional: see HPI Physical Exam Physical Exam Vital Signs Vital Signs - First Documented 11/18/18 11/18/18 11/18/18 19:53 20:00 20:04 Temp 101.0 Pulse 89 Resp 22 B/P (MAP) 187/113 (137) Pulse Ox 97 O2 Delivery Mechanical Ventilator O2 Flow Rate 80.00 FiO2 80 Capillary Refill : Less Than 3 Seconds Height, Weight, BMI Height: 5'4.00" Weight: 274lbs. 3.0oz. 124.931515yx; 46.3 BMI Method: General Appearance: No Apparent Distress, WD/WN, Chronically ill, Obese Respiratory: Decreased Breath Sounds (on Left), Wheezing, Other (on vent) Cardiovascular: No Edema, Tachycardia Neurologic/Psychiatric: Other (intubated) Results Results/Procedures Labs Laboratory Tests 11/19/18 03:00 11/20/18 03:20 Patient resulted labs reviewed. Assessment/Plan Admission Diagnosis Assessment: VDRF failed biPAP Presumed MANNY Pneumonia UTI Plan: Intubation monitor closely Admission Status: Inpatient Order (span 2 midnights) Reason for Inpatient Admission: Resp failure will require 3 days inpt Diagnosis/Problems Diagnosis/Problems (1) Acute respiratory failure Status: Acute Qualifiers: Respiratory failure complication: unspecified whether with hypoxia or hypercapnia Qualified Codes: J96.00 - Acute respiratory failure, unspecified whether with hypoxia or hypercapnia (2) Pneumonia Status: Acute Qualifiers: Pneumonia type: due to unspecified organism Laterality: unspecified laterality Lung location: unspecified part of lung Qualified Codes: J18.9 - Pneumonia, unspecified organism (3) UTI (urinary tract infection) Status: Acute Qualifiers: Urinary tract infection type: acute cystitis Hematuria presence: without hematuria Qualified Codes: N30.00 - Acute cystitis without hematuria (4) Obesities, morbid Status: Chronic Clinical Quality Measures DVT/VTE Risk/Contraindication: Risk Factor Score Per Nursin RFS Level Per Nursing on Admit: 4+=Very High FELICITA ALEMAN MEDICAL STUDENT 11/19/18 1102: History of Present Illness HPI/Chief Complaint CC: Acute respiratory distress, exacerbation COPD HPI: This is a 66 yo obese W female who presented to [facility] w/ acute respiratory distress and exacerbation of COPD. BiPAP was initiated, but hypercapnea continued to worsen so the patient was intubated and transferred to [facility] for ventilator management. [place] [facility] angio of the lungs was attempted, but pt was too obese. Pt received one round of cetriaxone and azithromycin empirically for PNA. Also received one round of Lovenox and Bumex. UA on arrival to [facility] was suspicion for infection, so urine culture pending. Source: RN/MD Exam Limitations: clinical condition Home Medications & Allergies Home Medications Active Scripts Medications Dose Route/Sig Max Daily Dose Days Date Category Aspirin 325 Mg Tablet 325 Mg PO DAILY 11/19/18 Reported Midodrine HCl 5 Mg Tablet 5 Mg PO QID 11/19/18 Reported Acetazolamide 250 Mg Tablet 250 Mg PO BID 11/19/18 Reported Isosorbide Mononitrate ER (Isosorbide Mononitrate) 60 Mg Tab 60 Mg PO DAILY 11/19/18 Reported Losartan Potassium 50 Mg Tablet 50 Mg PO DAILY 11/19/18 Reported Levothyroxine Sodium 25 Mcg Tablet 25 Mcg PO DAILY 11/19/18 Reported Omeprazole 40 Mg Capsule.dr 40 Mg PO DAILY 11/19/18 Reported Venlafaxine HCl ER (Venlafaxine HCl) 150 Mg Cap.er.24h 150 Mg PO DAILY 11/19/18 Reported Januvia (Sitagliptin Phosphate) 100 Mg Tablet 100 Mg PO DAILY 11/19/18 Reported Clonazepam 0.5 Mg Tablet 0.5 Mg PO BID 11/19/18 Reported Potassium Chloride 10 Meq Tablet.er 10 Meq PO DAILY 11/19/18 Reported Aripiprazole 15 Mg Tablet 15 Mg PO DAILY 11/19/18 Reported Zafirlukast 20 Mg Tablet 20 Mg PO BID 11/19/18 Reported Lamotrigine 25 Mg Tablet 25 Mg PO BID 11/19/18 Reported Past Rjkuzww-Itopgi-Ichypt Hx Past Med/Social Hx: Reviewed Nursing Past Med/Soc Hx Review of Systems ROS-Unable to Obtain: sedated on ventilator Physical Exam Physical Exam General Appearance: No Apparent Distress, WD/WN, Obese Eyes: Bilateral Eye Normal Inspection, Bilateral Eye PERRL, Bilateral Eye EOMI HEENT: Moist Mucous Membranes, Other (ET tube and NG tube in place) Neck: Normal Inspection, Non Tender Respiratory: No Accessory Muscle Use, Decreased Breath Sounds (on Left), Expiration, Rhonci, Wheezing Cardiovascular: No Edema, No Gallop, No JVD, No Murmur, Normal Peripheral Pulses, Tachycardia Gastrointestinal: Normal Bowel Sounds, No Organomegaly, Soft Extremity: Normal Capillary Refill, Normal Inspection, No Pedal Edema Skin: Normal Color, Warm/Dry Lymphatic: No Adenopathy Results Results/Procedures Imaging: Reviewed Imaging Films, Reviewed Imaging Report Assessment/Plan Admission Diagnosis AECOPD Acute hypoxic, hypercapnic respiratory failure Admission Status: Inpatient Order (span 2 midnights) Reason for Inpatient Admission: Acute respiratory failure requiring ventilator and IV abx for PNA/UTI Assessment and Plan Assessment: AECOPD Acute respiratory failure w/ hypoxia, hypercapnia UTI obesity DM HTN GERD Hypothyroidism Plan: Ventilator management in ICU Monitor CMP, CBC IV cefepime, urine culture pending DVT prophylaxis Sugar control Critical Care Critically Ill Patient LISA ACHARYA DO Nov 19, 2018 09:57 FELICITA ALEMAN MEDICAL STUDENT Nov 19, 2018 11:02
--- NOTE | 2018-11-19 10:21 | Occ Therapy Progress Note ---
Therapy Progress Note OT order received. Chart reviewed. Pt. on mechanical, ventilator support. Will continue to monitor and will evaluate pt. when extubated. 1020 SNOW MENDOZA OT Nov 19, 2018 10:21
--- NOTE | 2018-11-19 10:23 | Physical Therapy Progress Note ---
Therapy Progress Note PT will assess pt when pt is medically stable to participate in physical therapy services. KRISSY RAINEY PT Nov 19, 2018 10:23
[2018-11-19] MEDS ORDERED: ISM60TCR PO (10:49)
[2018-11-19] MEDS ORDERED: SITA100T12 PO (10:49)
[2018-11-19] MEDS ORDERED: ASPI-808 PO (10:49)
[2018-11-19] MEDS ORDERED: POTA10TA10 PO (10:49)
[2018-11-19] MEDS ORDERED: CLON0.5T13 PO (10:49)
[2018-11-19] MEDS ORDERED: OMEP40CA36 PO (10:49)
[2018-11-19] MEDS ORDERED: MIDO2.5T PO (10:49)
[2018-11-19] MEDS ORDERED: VENL150C98 PO (10:49)
[2018-11-19] MEDS ORDERED: ARIP15TA9 PO (10:49)
[2018-11-19] MEDS ORDERED: LOSA50TA63 PO (10:49)
[2018-11-19] MEDS ORDERED: ACET250T3 PO (10:49)
[2018-11-19] MEDS ORDERED: MIDO5TAB PO (10:49)
[2018-11-19] MEDS ORDERED: LEVO25TA5 PO (10:49)
[2018-11-19] MEDS ORDERED: ZAFI20TA13 PO (10:49)
[2018-11-19] MEDS ORDERED: LAMO25TA PO (10:49)
[2018-11-19] MEDS ORDERED: DILT-27 PO (11:20)
[2018-11-19] MEDS ORDERED: POLY238P32 PO (11:20)
[2018-11-19] MEDS ORDERED: ROSU5TAB12 PO (11:20)
[2018-11-19] MEDS ORDERED: ALBU18HF2 INH (11:20)
[2018-11-19] MEDS ORDERED: METF-397 PO (11:20)
[2018-11-19] MEDS ORDERED: GLYC10.7 INH (11:20)
[2018-11-19] MEDS ORDERED: FLUT16SP22 NS (11:20)
[2018-11-19] MEDS ORDERED: SOLI10TA2 PO (11:20)
[2018-11-19] MEDS ORDERED: AMLO10TA7 PO (11:20)
[2018-11-19] MEDS ORDERED: TORS20TA3 PO (11:20)
--- NOTE | 2018-11-19 11:32 | NUR ---
ID PATIENTS OWN URSODIOL, PLACED IN RX VIAL FROM PHARMACY AND GIVEN TO NURSE. Addendum: 11/20/18 at 0821 by FELICITA BELTRÁN [facility] DISREGARD NOTE: INCORRECT PATIENT
[2018-11-19] MEDS ORDERED: ALBU2.5V4 NEB (12:29)
[2018-11-19] MEDS ORDERED: GUAI600T43 PO (12:29)
[2018-11-19] MEDS: fentaNYL INJECTION 1,250 MCG in NS (IVPB) 250 ML IV SCH (12:30)
--- NOTE | 2018-11-19 12:39 | NUR ---
TUBE FEEDING RECOMMENDATIONS: RECOMMEND PULMOCARE @ 60 ML/HR TO PROVIDE 2160 KCAL, 90 GRAMS PROTEIN, 1130 ML FREE WATER. PT WILL NEED ADDITIONAL 1900 ML FLUID PER DAY BETWEEN FLUSHES AND IVF TO MEET FLUID NEEDS.
--- NOTE | 2018-11-19 13:00 | Anesthesia-Procedure Note ---
Procedures/Interventions Procedure Start/Stop/Diagnosis Date of Procedure: Nov 19, 2018 Start Time: 12:30 Referring Physician: Flaca Preprocedural Diagnosis: Resp Failure Brief History Called to start A-line on ICU 9. Pt sedated on propofol. ASA 4 Brief hx obtained from RN and chart. Rt radial zbigniew x 2 attempts without complications. Good wave form on monitor. Left pt in care of RN Stop Time: 12:50 Postprocedural Diagnosis: Resp Failure Arterial Line Arterial Line Catheter: 20G Type: Radial Location: Right Procedure: prepped, draped in sterile fashion, good wave-form was obtained, patient tolerated procedure well, no immediate complications, post procedure area cleaned, post procedure dressing applied WENDY AGUSTIN CRNA Nov 19, 2018 13:00
--- NOTE | 2018-11-19 14:17 | NUR ---
Pastoral care visit, no family present.
[2018-11-19] MEDS ORDERED: NS IV 500 ML 500 ML ONE (14:43)
[2018-11-19] MEDS ORDERED: NS (IVPB) 500 ML IV ONE (14:45)
[2018-11-19] MEDS ORDERED: DEXMEDETOMIDINE INJECTION 200 MCG in NS (IVPB) 50 ML IV SCH (14:45)
--- NOTE | 2018-11-19 15:57 | NUR ---
UPDATED MED REC USING THE LIST FROM [facility], DR. JUNG'S OFFICE, WELL A LIST OF RECENT FILLS FROM [facility]. IN ADDITION TO WHAT IS ON DR. JUNG'S OFFICE LIST I LEFT VENTOLIN, FLONASE, AND MIRALAX ON THE MED REC SINCE THEY HAVE BEEN FILLED RECENTLY. HIS LIST INCLUDED ASPIRIN AND MUCINEX OTC. [facility] ALSO FILLED SEVERAL PRESCRIPTIONS THAT ARE PAST DUE FOR REFILL, I DID NOT INCLUDED THEM ON THE MED REC SINCE THEY WERE NOT ON THE LIST FROM DR. JUNG CURRENT MEDICATION. SEE LIST ON CHART FOR FULL DETAILS. NOTE [facility] DID FILL AMLODIPINE AND TORSEMIDE RECENTLY THAT IS NOT PAST DUE FOR REFILL HOWEVER THEY ARE NOT ON THE LIST FROM DR. JUNG'S OFFICE. I CALLED THEM AND THEY VERIFIED THE AMLODIPINE WAS STOPPED. THEY WERE GOING TO CHECK WITH ABOUT TORSEMIDE BUT AT THIS TIME I HAVE NOT RECEIVED A CALL BACK REGARDING IT. IN ADDITION TO THE LIST FROM [facility] I ADDED VESICARE, VENTOLIN, ROSUVASTATIN, MIRALAX, METFORMIN, FLONASE, DILTIAZEM, BEVESPI, ALBUTEROL NEBS, AND MUCINEX.
--- NOTE | 2018-11-19 16:01 | Consultation-Cardiology ---
HPI-Cardiology Cardiology Consultation: Date of Consultation 11/19/18 Time Seen by a Provider: 15:40 Date of Admission 11-19-18 Attending Physician Flavia Schmitt MD Admitting Physician Landy Michaud MD Consulting Physician Donn Hassan MD HPI: Chief Complaint: Acute Resp Failure Elevated Troponin Ms. Calderón is a 67 year old female transferred to [facility] [place] [facility] [place]. She is currently intubated and sedated. Family x 1 at the bedside only able to apply limited amt of information. Records have been reviewed [place] [facility] Per records she was brought to the [facility] [place] d/t increasing lethargy and resp failure. Review of Systems-Cardiology Review of Systems Other comments Unable to obtain d/t intubation and sedation [id number]-Adexpc Hx Past Medical History PMH As described under Assessment. Family Medical History Family Medical History: Unable to obtain Allergies and Home Medications Allergies Coded Allergies: clarithromycin (Verified Allergy, Unknown, 11/18/18) moxifloxacin (Verified Allergy, Unknown, 11/18/18) nitrofurantoin (Verified Allergy, Unknown, 11/18/18) penicillin G (Verified Allergy, Unknown, Pt has received Omnicef & cephalexin in the past, 11/19/18) Pt has received Omnicef & cephalexin in the past (from External med history) sulfacetamide (Verified Allergy, Unknown, 11/18/18) trazodone (Verified Allergy, Unknown, 11/18/18) Home Medications Acetazolamide 250 Mg Tablet, 250 MG PO BID, (Reported) Albuterol Sulfate 18 Gm Hfa.aer.ad, 2 PUFF INH QID PRN for SHORTNESS OF BREATH, (Reported) Albuterol Sulfate 2.5 Mg/3 Ml Vial.neb, 2.5 MG NEB QID, (Reported) Aripiprazole 15 Mg Tablet, 15 MG PO DAILY, (Reported) Aspirin 325 Mg Tablet, 325 MG PO DAILY, (Reported) Clonazepam 0.5 Mg Tablet, 0.5 MG PO BID, (Reported) Diltiazem HCl 120 Mg Cap.er.24h, 120 MG PO DAILY, (Reported) Fluticasone Propionate 16 [address] [place].susp, 1 SPRAY NS DAILY, (Reported) Glycopyrrolate/Formoterol Fum 10.7 Gm Hfa.aer.ad, 2 PUFF INH BID, (Reported) Guaifenesin 600 Mg Tab.er.12h, 600 MG PO BID, (Reported) Isosorbide Mononitrate 60 Mg Tab, 60 MG PO DAILY, (Reported) Lamotrigine 25 Mg Tablet, 25 MG PO BID, (Reported) Levothyroxine Sodium 25 Mcg Tablet, 25 MCG PO DAILY, (Reported) Losartan Potassium 50 Mg Tablet, 50 MG PO DAILY, (Reported) Metformin HCl 500 Mg Tablet, 500 MG PO BID, (Reported) Midodrine HCl 5 Mg Tablet, 5 MG PO QID, (Reported) Omeprazole 40 Mg Capsule.dr, 40 MG PO DAILY, (Reported) Polyethylene Glycol 3350 238 Gm Powder, 17 GM PO DAILY, (Reported) Potassium Chloride 10 Meq Tablet.er, 10 MEQ PO DAILY, (Reported) Rosuvastatin Calcium 5 Mg Tablet, 5 MG PO HS, (Reported) Sitagliptin Phosphate 100 Mg Tablet, 100 MG PO DAILY, (Reported) Solifenacin Succinate 10 Mg Tablet, 10 MG PO DAILY, (Reported) Venlafaxine HCl 150 Mg Cap.er.24h, 150 MG PO DAILY, (Reported) Zafirlukast 20 Mg Tablet, 20 MG PO BID, (Reported) Physical Exam-Cardiology Physical Exam Vital Signs/I&O 11/19/18 11/19/18 11/19/18 11/19/18 22:00 22:31 23:00 23:59 Pulse 75 74 98 79 Resp 22 24 25 27 B/P (MAP) 98/49 (65) 87/46 (60) Pulse Ox 99 95 97 98 O2 Delivery Mechanical Ventilator Mechanical Ventilator O2 Flow Rate 40.00 40.00 FiO2 40 40 11/20/18 11/20/18 11/20/18 11/20/18 00:00 00:00 00:00 00:48 Temp 99.0 Pulse 78 Resp 25 B/P (MAP) 92/46 (61) Pulse Ox 97 92 O2 Delivery Mechanical Ventilator Mechanical Ventilator O2 Flow Rate 40.00 FiO2 40 11/20/18 11/20/18 11/20/18 11/20/18 01:00 01:00 02:00 02:18 Pulse 75 74 74 71 Resp 25 27 24 B/P (MAP) 114/62 (79) 106/54 (71) Pulse Ox 99 99 100 O2 Delivery Mechanical Ventilator Mechanical Ventilator O2 Flow Rate 40.00 40.00 FiO2 40 11/20/18 11/20/18 11/20/18 11/20/18 03:00 03:37 04:00 04:15 Pulse 78 78 80 Resp 22 25 27 B/P (MAP) 100/67 (78) 91/50 95/59 (71) Pulse Ox 94 92 100 92 O2 Delivery Mechanical Ventilator Mechanical Ventilator Mechanical Ventilator Mechanical Ventilator O2 Flow Rate 40.00 40.00 FiO2 40 11/20/18 11/20/18 11/20/18 11/20/18 04:16 04:19 05:00 05:57 Temp 97.9 Pulse 94 91 Resp 24 23 B/P (MAP) 110/59 (76) Pulse Ox 100 100 O2 Delivery Mechanical Ventilator Mechanical Ventilator O2 Flow Rate 40.00 30.00 FiO2 40 11/20/18 11/20/18 11/20/18 11/20/18 06:00 06:34 07:00 07:00 Pulse 98 98 67 91 Resp 25 25 25 B/P (MAP) 131/73 (92) 144/83 (103) Pulse Ox 95 92 92 O2 Delivery Mechanical Ventilator Mechanical Ventilator O2 Flow Rate 30.00 30.00 FiO2 40 11/20/18 11/20/18 11/20/18 11/20/18 07:28 07:37 08:00 08:13 Temp 97.6 Pulse 68 67 67 Resp 26 27 B/P (MAP) 145/71 (95) 150/85 (106) Pulse Ox 91 92 94 O2 Delivery Mechanical Ventilator Mechanical Ventilator Mechanical Ventilator O2 Flow Rate 30.00 40.00 FiO2 30 11/20/18 11/20/18 09:19 09:27 Pulse 98 92 Resp 42 25 Pulse Ox 80 95 FiO2 40 40 11/20/18 00:00 Intake Total 2110 ml Output Total 1700 ml Balance 410 ml Capillary Refill : Less Than 3 Seconds Constitutional: other (Intubated and sedated) HEENT: No ulceration, No xanthelasmas are seen Neck: No carotid bruit; carotid pulses are 2 + bilaterally Respiratory: chest expansion is symmetric, chest is bilaterally symmetric, other (diminished lower lobes bilat with fair air entry; intubated) Cardiovascular: regular rate-rhythm, S1 and S2, systolic murmur Gastrointestinal: round, audible bowel sounds Extremities: no lower extremity edema bilateral Neurologic/Psychiatric: other (sedated; but does seem to move all extremities) Skin: No rash, No ulcerations Data Review Labs Laboratory Tests 11/19/18 11:21: Glucometer 350H 11/19/18 12:20: Troponin I 0.239H 11/19/18 18:01: Glucometer 325H, Troponin I 0.227H 11/19/18 23:48: Troponin I 0.190H 11/20/18 01:18: Glucometer 319H 11/20/18 03:20: White Blood Count 9.2, Red Blood Count 3.66L, Hemoglobin 10.3L, Hematocrit 34L, Mean Corpuscular Volume 93, Mean Corpuscular Hemoglobin 28, Mean Corpuscular Hemoglobin Concent 30L, Red Cell Distribution Width 15.1H, Platelet Count 218, Mean Platelet Volume 9.8, Neutrophils (%) (Auto) 90H, Lymphocytes (%) (Auto) 4L , Monocytes (%) (Auto) 6, Eosinophils (%) (Auto) 0, Basophils (%) (Auto) 0, Neutrophils # (Auto) 8.2H, Lymphocytes # (Auto) 0.4L, Monocytes # (Auto) 0.5, Eosinophils # (Auto) 0.0, Basophils # (Auto) 0.0, Blood Gas Puncture Site RIGHT ART LINE, Blood Gas Patient Temperature 98.8, Arterial Blood pH 7.36L, Arterial Blood Partial Pressure CO2 53H, Arterial Blood Partial Pressure O2 60L, Arterial Blood HCO3 29H, Arterial Blood Total CO2 30.3, Arterial Blood Oxygen Saturation 89L, Arterial Blood Base Excess 3.6H, Zach Test POSITIVE, Blood Gas Ventilator Setting YES, Blood Gas Inspired Oxygen 40%, Sodium Level 145, Potassium Level 3.1L, Chloride Level 109H, Carbon Dioxide Level 26, Anion Gap 10 , Blood Urea Nitrogen 19H, Creatinine 0.83, Estimat Glomerular Filtration Rate > 60, BUN/Creatinine Ratio 23, Glucose Level 329H, Calcium Level 8.5, Phosphorus Level 1.7L, Magnesium Level 1.9 11/20/18 05:59: Glucometer 252H 11/20/18 07:49: Glucometer 264H Microbiology 11/19/18 Blood Culture - Preliminary, Resulted No growth 11/18/18 MRSA Screen - Final, Complete Radiology NAME: NERY CALDERÓN [facility] REC#: [id number] PT STATUS: ADM IN : 1950 PHYSICIAN: ROBERTO VAUGHN DO ADMIT DATE: 11/18/18/ICU Signed Date of Exam: 11/19/18 CHEST 1 VIEW, AP/PA ONLY INDICATION: Followup. Respiratory failure. COMPARISON: 11/18/2018 FINDINGS: Single frontal radiographic view of the chest was obtained and again demonstrates indwelling endotracheal tube with tip below the clavicular heads and above the claudia. Gastric tube is noted, but tip is obscured. Cardiac silhouette remains enlarged. Pulmonary vasculature remains prominent. There is also persistent diffuse interstitial edema as well as persistent dense opacification of the left base obscuring the left hemidiaphragm. No large effusion is seen on the right. No pneumothorax is identified on either side. Bony structures show no gross acute abnormalities. IMPRESSION: 1. Stable exam of the chest showing cardiomegaly with pulmonary vascular congestion and probable interstitial pulmonary edema. 2. Stable left basilar airspace disease suspicious for effusion with associated infiltrate and/or atelectasis. Dictated by: Dictated on workstation # [id number] Dict: 11/19/18 0732 Trans: 11/19/18 1111 Interpreted by: SHAYNA WELLER MD Electronically signed by: SHAYNA WELLER MD 11/19/18 1111 ECG Impression ECG Initial ECG Rhythm: Normal Sinus (with PAC's) A/P-Cardiology Assessment/Admission Diagnosis Acute on chronic respiratory failure requiring intubation - management per medical/pulmonary services Pneumonia - management per medical/pulmonary services Acute on chronic exacerbation of COPD Hypokalemia - replace Morbid obesity with obesity hypoventilation syndrome Elevated troponin possibly d/t hypoxia DM 2 Liver enzyme elevation HLD - statin tx Discussion and Recomendations Acute on chronic resp failure requiring intubation Family x 1 at the bedside states pt does have a blast setter in [place], [place] but is unsure of who it is - we will try and determine blast setter and obtain records Echocardiogram Management of pneumonia as per pulmonary/medical services Monitor lab Further recs will be based on her hospital course Clinical Quality Measures DVT/VTE Risk/Contraindication: Risk Factor Score Per Nursin RFS Level Per Nursing on Admit: 4+=Very High NIKOLAI STEVENSON Nov 19, 2018 16:01
--- NOTE | 2018-11-19 17:16 | Consultation-Cardiology ---
HPI-Cardiology Cardiology Consultation: Date of Consultation 11/19/18 Time Seen by a Provider: 16:30 Date of Admission Attending Physician Flavia Schmitt MD Admitting Physician Landy Michaud MD Consulting Physician BEV CANTU MD, MA, FACP, FAC, [facility], [facility] Physician requesting consult: Dr Chaparro HPI: Chief Complaint: Reason for consultation: Elevated Troponin Ms. Yañez is a 67 year old female transferred to [facility] ICU 9 from [facility] d/t resp failure. She is currently intubated and sedated. Family x 1 at the bedside only able to apply limited amt of information. Records have been reviewed from [facility] ED. Per records she was brought to the [facility] ED d/t increasing lethargy and resp failure. [id number]-Ecrben-Gjreij Hx Past Medical History PMH As described under Assessment. Family Medical History Family Medical History: Unable to obtain Allergies and Home Medications Allergies Coded Allergies: clarithromycin (Verified Allergy, Unknown, 11/18/18) moxifloxacin (Verified Allergy, Unknown, 11/18/18) nitrofurantoin (Verified Allergy, Unknown, 11/18/18) penicillin G (Verified Allergy, Unknown, Pt has received Omnicef & cephalexin in the past, 11/19/18) Pt has received Omnicef & cephalexin in the past (from External med history) sulfacetamide (Verified Allergy, Unknown, 11/18/18) trazodone (Verified Allergy, Unknown, 11/18/18) Home Medications Acetazolamide 250 Mg Tablet, 250 MG PO BID, (Reported) Albuterol Sulfate 18 Gm Hfa.aer.ad, 2 PUFF INH QID PRN for SHORTNESS OF BREATH, (Reported) Albuterol Sulfate 2.5 Mg/3 Ml Vial.neb, 2.5 MG NEB QID, (Reported) Aripiprazole 15 Mg Tablet, 15 MG PO DAILY, (Reported) Aspirin 325 Mg Tablet, 325 MG PO DAILY, (Reported) Clonazepam 0.5 Mg Tablet, 0.5 MG PO BID, (Reported) Diltiazem HCl 120 Mg Cap.er.24h, 120 MG PO DAILY, (Reported) Fluticasone Propionate 16 Gm [place].susp, 1 SPRAY NS DAILY, (Reported) Glycopyrrolate/Formoterol Fum 10.7 Gm Hfa.aer.ad, 2 PUFF INH BID, (Reported) Guaifenesin 600 Mg Tab.er.12h, 600 MG PO BID, (Reported) Isosorbide Mononitrate 60 Mg Tab, 60 MG PO DAILY, (Reported) Lamotrigine 25 Mg Tablet, 25 MG PO BID, (Reported) Levothyroxine Sodium 25 Mcg Tablet, 25 MCG PO DAILY, (Reported) Losartan Potassium 50 Mg Tablet, 50 MG PO DAILY, (Reported) Metformin HCl 500 Mg Tablet, 500 MG PO BID, (Reported) Midodrine HCl 5 Mg Tablet, 5 MG PO QID, (Reported) Omeprazole 40 Mg Capsule.dr, 40 MG PO DAILY, (Reported) Polyethylene Glycol 3350 238 Gm Powder, 17 GM PO DAILY, (Reported) Potassium Chloride 10 Meq Tablet.er, 10 MEQ PO DAILY, (Reported) Rosuvastatin Calcium 5 Mg Tablet, 5 MG PO HS, (Reported) Sitagliptin Phosphate 100 Mg Tablet, 100 MG PO DAILY, (Reported) Solifenacin Succinate 10 Mg Tablet, 10 MG PO DAILY, (Reported) Venlafaxine HCl 150 Mg Cap.er.24h, 150 MG PO DAILY, (Reported) Zafirlukast 20 Mg Tablet, 20 MG PO BID, (Reported) Patient Home Medication List Home Medication List Reviewed: Yes Physical Exam-Cardiology Physical Exam Vital Signs/I&O 11/19/18 11/19/18 11/19/18 11/19/18 05:35 06:00 06:28 07:00 Pulse 104 101 99 105 Resp 14 27 29 B/P (MAP) 147/85 (105) 156/87 (110) Pulse Ox 94 93 93 O2 Delivery Mechanical Ventilator Mechanical Ventilator O2 Flow Rate 40.00 40.00 FiO2 40 11/19/18 11/19/18 11/19/18 11/19/18 07:00 08:00 08:00 08:00 Temp 99.3 Pulse 103 108 Resp 30 30 B/P (MAP) 110/69 (83) 103/65 (78) Pulse Ox 96 91 92 O2 Delivery Mechanical Ventilator Mechanical Ventilator Mechanical Ventilator O2 Flow Rate 40.00 40.00 FiO2 40 11/19/18 11/19/18 11/19/18 11/19/18 08:13 09:00 09:40 10:00 Temp 99.4 Pulse 105 108 108 106 Resp 25 32 31 30 B/P (MAP) 117/65 (82) 121/68 114/66 (82) Pulse Ox 92 92 94 94 O2 Delivery Mechanical Ventilator Mechanical Ventilator Mechanical Ventilator O2 Flow Rate 40.00 40.00 40.00 FiO2 40 11/19/18 11/19/18 11/19/18 11/19/18 10:25 11:00 12:00 12:00 Temp 99.6 Pulse 102 78 Resp 28 18 B/P (MAP) 167/54 (91) Pulse Ox 96 94 92 O2 Delivery Mechanical Ventilator Mechanical Ventilator O2 Flow Rate 40.00 FiO2 40 40 11/19/18 11/19/18 11/19/18 11/19/18 12:00 12:15 12:47 13:00 Temp 99.6 Pulse 101 106 102 102 Resp 29 30 26 B/P (MAP) 113/62 (79) 98/64 Pulse Ox 90 92 92 O2 Delivery Mechanical Ventilator Mechanical Ventilator O2 Flow Rate 40.00 40.00 FiO2 40 11/19/18 11/19/18 11/19/18 11/19/18 13:00 13:40 14:00 15:00 Pulse 98 96 103 103 Resp 28 28 28 27 B/P (MAP) 98/64 (75) 96/47 (63) 114/54 (74) Pulse Ox 93 95 94 94 O2 Delivery Mechanical Ventilator Mechanical Ventilator Mechanical Ventilator O2 Flow Rate 40.00 40.00 40.00 FiO2 40 11/19/18 11/19/18 11/19/18 11/19/18 16:00 16:00 16:00 16:02 Temp 99.9 99.9 Pulse 100 97 Resp 17 30 B/P (MAP) 103/51 (68) 105/51 Pulse Ox 92 97 96 O2 Delivery Mechanical Ventilator Mechanical Ventilator Mechanical Ventilator O2 Flow Rate 40.00 40.00 FiO2 40 11/19/18 16:05 Pulse 99 Resp 28 Pulse Ox 95 FiO2 40 11/19/18 00:00 Intake Total 250 ml Output Total 750 ml Balance -500 ml Capillary Refill : Less Than 3 Seconds Constitutional: other (Intubated and sedated) HEENT: No ulceration, No xanthelasmas are seen Neck: No carotid bruit; carotid pulses are 2 + bilaterally Respiratory: chest expansion is symmetric, chest is bilaterally symmetric, other (diminished lower lobes bilat with fair air entry; intubated) Cardiovascular: regular rate-rhythm, S1 and S2, systolic murmur Gastrointestinal: round, audible bowel sounds Extremities: no lower extremity edema bilateral Neurologic/Psychiatric: other (sedated; but does seem to move all extremities) Skin: No rash, No ulcerations Data Review Labs Laboratory Tests 11/18/18 20:52: Blood Gas Puncture Site L RAD, Blood Gas Patient Temperature 100.2, Arterial Blood pH 7.36L, Arterial Blood Partial Pressure CO2 48H, Arterial Blood Partial Pressure O2 103H, Arterial Blood HCO3 26, Arterial Blood Total CO2 27.5, Arterial Blood Oxygen Saturation 98, Arterial Blood Base Excess 1.4, Zach Test YES-POS, Blood Gas Ventilator Setting YES, Blood Gas Inspired Oxygen 80% 11/19/18 00:15: Triglycerides Level 89 11/19/18 00:28: Glucometer 240H 11/19/18 03:00: White Blood Count 8.8, Red Blood Count 4.32L, Hemoglobin 12.0, Hematocrit 40, Mean Corpuscular Volume 92, Mean Corpuscular Hemoglobin 28, Mean Corpuscular Hemoglobin Concent 30L, Red Cell Distribution Width 14.7H, Platelet Count 232, Mean Platelet Volume 9.9, Neutrophils (%) (Auto) 87H, Lymphocytes (%) (Auto) 9L , Monocytes (%) (Auto) 4, Eosinophils (%) (Auto) 0, Basophils (%) (Auto) 0, Neutrophils # (Auto) 7.7, Lymphocytes # (Auto) 0.8L, Monocytes # (Auto) 0.3, Eosinophils # (Auto) 0.0, Basophils # (Auto) 0.0, Neutrophils % (Manual) 78, Lymphocytes % (Manual) 6, Monocytes % (Manual) 6, Eosinophils % (Manual) 0, Basophils % (Manual) 0, Metamyelocytes % 1, Band Neutrophils 8, Nucleated Red Blood Cells 1, Reactive Lymphocytes 1, Basophilic Stippling SLIGHT, Anisocytosis SLIGHT, Macrocytosis SLIGHT, Sodium Level 142, Potassium Level 3.0L , Chloride Level 106, Carbon Dioxide Level 26, Anion Gap 10, Blood Urea Nitrogen 12, Creatinine 0.77, Estimat Glomerular Filtration Rate > 60, BUN/ Creatinine Ratio 16, Glucose Level 251H, Calcium Level 8.5, Corrected Calcium 8.8, Phosphorus Level 1.5L, Magnesium Level 2.4, Total Bilirubin 0.7, Aspartate Amino Transf (AST/SGOT) 46H, Alanine Aminotransferase (ALT/SGPT) 57H, Alkaline Phosphatase 116, B-Type Natriuretic Peptide 561.0H, Total Protein 6.7, Albumin 3.6 11/19/18 03:24: Blood Gas Puncture Site R RAD, Blood Gas Patient Temperature 98.8, Arterial Blood pH 7.31*L, Arterial Blood Partial Pressure CO2 55H, Arterial Blood Partial Pressure O2 68L, Arterial Blood HCO3 27, Arterial Blood Total CO2 28.8, Arterial Blood Oxygen Saturation 91L, Arterial Blood Base Excess 1.6, Zach Test YES-POS, Blood Gas Ventilator Setting YES, Blood Gas Inspired Oxygen 50% 11/19/18 06:03: Glucometer 229H 11/19/18 07:15: Urine Color YELLOW, Urine Clarity CLEAR, Urine pH 6, Urine Specific [place] 1.020, Urine Protein 3+H, Urine Glucose (UA) 4+H, Urine Ketones 4+H, Urine Nitrite POSITIVEH, Urine Bilirubin NEGATIVE, Urine Urobilinogen 1, Urine Leukocyte Esterase 1+H, Urine RBC (Auto) 3+H, Urine RBC 10-25H, Urine WBC 0-2, Urine Squamous Epithelial Cells NONE, Urine Crystals NONE, Urine Bacteria LARGEH , Urine Casts NONE, Urine Mucus NEGATIVE, Urine Culture Indicated YES 11/19/18 11:21: Glucometer 350H 11/19/18 12:20: Troponin I 0.239H Microbiology 11/18/18 MRSA Screen - Final, Complete Laboratory Tests 11/19/18 03:00 A/P-Cardiology Assessment/Admission Diagnosis Acute on chronic respiratory failure requiring intubation - management per medical/pulmonary services Pneumonia - management per medical/pulmonary services Acute on chronic exacerbation of COPD Hypokalemia - replace Morbid obesity with obesity hypoventilation syndrome Elevated troponin likely d/t hypoxia (Type 2 [place]) DM 2 Liver enzyme elevation HLD - statin tx Discussion and Recomendations Acute on chronic resp failure requiring intubation Family x 1 at the bedside states pt does have a security associate in [place], [place] but is unsure of who it is - we will try and determine security associate and obtain records Echocardiogram Management of pneumonia as per pulmonary/medical services Monitor lab Further recs will be based on her hospital course Clinical Quality Measures DVT/VTE Risk/Contraindication: Risk Factor Score Per Nursin RFS Level Per Nursing on Admit: 4+=Very High BEV CANTU MD FACP FAC CCDS Nov 19, 2018 17:16
[2018-11-19] MEDS: DEXMEDETOMIDINE INJECTION 1,000 MCG in NS (IVPB) 250 ML IV SCH (22:23)
[2018-11-20] VITALS (34 sets, daily range): BP systolic 92–188; BP diastolic 46–113
[2018-11-20] MEDS: PATIENT MAY USE OWN MED,SINGLE MED PO SCH ×3 (01:19→22:25)
[2018-11-20] MEDS: inSUlin ASPART (NovoLOG) 1 UNIT/0.01 ML (CHARGE PER UNIT) SC SCH ×6 (01:25→17:07)
[2018-11-20] MEDS: RT-ALBUTEROL/IPRATROPIUM 3 ML (DUONEB) VIAL INH SCH ×6 (02:12→22:34)
[2018-11-20] MEDS: NS IV 1000 ML 1,000 ML IV SCH ×2 (02:56→06:19)
[2018-11-20 03:30] LABS: BASOPHILS % (AUTO) 0 % (0-10); EOSINOPHILS % (AUTO) 0 % (0-10); HEMATOCRIT 34 % (35-52); HEMOGLOBIN 10.3 G/DL (11.5-16.0); LYMPHOCYTES # (AUTO) 0.4 X 10^3 (1.0-4.0); LYMPHOCYTES % (AUTO) 4 % (12-44); MEAN CORPUSCULAR HEMOGLOBIN 28 PG (25-34); MEAN CORPUSCULAR HGB CONC 30 G/DL (32-36); MEAN CORPUSCULAR VOLUME 93 FL (80-99); MEAN PLATELET VOLUME 9.8 FL (7.4-10.4); MONOCYTES # (AUTO) 0.5 X 10^3 (0.0-1.0); MONOCYTES % (AUTO) 6 % (0-12); NEUTROPHILS # (AUTO) 8.2 X 10^3 (1.8-7.8); NEUTROPHILS % (AUTO) 90 % (42-75); PLATELET COUNT 218 10^3/uL (130-400); RED CELL DISTRIBUTION WIDTH 15.1 % (10.0-14.5); WHITE BLOOD COUNT 9.2 10^3/uL (4.3-11.0)
[2018-11-20 03:31] LABS: ABG BASE EXCESS 3.6 MMOL/L (-2.5-2.5); ABG OXYGEN SATURATION 89 % (94-100); ABG PCO2 53 MMHG (35-45); ABG PH 7.36 (7.37-7.43); ABG PO2 60 MMHG (79-93); ABG TCO2 30.3 MMOL/L (21.0-31.0)
[2018-11-20 03:33] LABS: ALLENS TEST POSITIVE; INSPIRED O2 40%; PATIENT TEMP 98.8; VENTILATOR YES
[2018-11-20] MEDS: PROPOFOL DRIP (ICU) 100 ML IV SCH ×5 (03:37→22:00)
[2018-11-20 03:48] LABS: BUN/CREATININE RATIO 23; CALCIUM 8.5 MG/DL (8.5-10.1); CARBON DIOXIDE 26 MMOL/L (21-32); CHLORIDE 109 MMOL/L (98-107); CREATININE SERUM 0.83 MG/DL (0.60-1.30); GFR ESTIMATED > 60; GLUCOSE 329 MG/DL (70-105); MAGNESIUM 1.9 MG/DL (1.8-2.4); PHOSPHORUS 1.7 MG/DL (2.3-4.7); POTASSIUM 3.1 MMOL/L (3.6-5.0); SODIUM 145 MMOL/L (135-145)
[2018-11-20] MEDS: MAGNESIUM 1 GM/100 ML IVPB 100 ML IV SCH (04:20)
[2018-11-20] MEDS: methylPREDNISolone 40 MG/ML (Solu-MEDROL) VIAL IV SCH ×4 (04:47→21:54)
[2018-11-20] MEDS: POTASSIUM CL 10MEQ/50ML IVPB 50 ML IV SCH ×5 (04:49→07:51)
--- NOTE | 2018-11-20 05:50 | Pulmonary Progress Note ---
Subjective Time Seen by a Provider: 06:32 Subjective/Events-last exam Pt sedated on vent. Sepsis Event Evaluation Height, Weight, BMI Height: 5'4.00" Weight: 274lbs. 3.0oz. 124.864913hp; 46.3 BMI Method: Exam Exam Vital Signs Date Time Temp Pulse Resp B/P (MAP) Pulse Ox O2 Delivery O2 Flow Rate FiO2 11/20/18 05:00 91 23 110/59 (76) 100 Mechanical Ventilator 40.00 11/20/18 04:19 97.9 11/20/18 04:16 94 24 100 40 11/20/18 04:15 92 Mechanical Ventilator 40 11/20/18 04:00 80 27 95/59 (71) 100 Mechanical Ventilator 40.00 11/20/18 03:37 78 25 91/50 92 Mechanical Ventilator 11/20/18 03:00 78 22 100/67 (78) 94 Mechanical Ventilator 40.00 11/20/18 02:18 71 24 100 40 11/20/18 02:00 74 27 106/54 (71) 99 Mechanical Ventilator 40.00 11/20/18 01:00 74 25 114/62 (79) 99 Mechanical Ventilator 40.00 11/20/18 01:00 75 11/20/18 00:48 11/20/18 00:00 92 Mechanical Ventilator 40 11/20/18 00:00 78 25 92/46 (61) 97 Mechanical Ventilator 40.00 11/20/18 00:00 99.0 11/19/18 23:59 79 27 98 40 11/19/18 23:00 98 25 87/46 (60) 97 Mechanical Ventilator 40.00 11/19/18 22:31 74 24 95 40 11/19/18 22:00 75 22 98/49 (65) 99 Mechanical Ventilator 40.00 11/19/18 21:16 85 23 98 40 11/19/18 21:00 75 29 98/49 (65) 99 Mechanical Ventilator 40.00 11/19/18 20:03 96 32 99/50 100 11/19/18 20:00 99.6 11/19/18 20:00 97 24 102/53 (69) 100 Mechanical Ventilator 40.00 11/19/18 20:00 92 Mechanical Ventilator 40 11/19/18 19:00 81 11/19/18 19:00 81 23 98/46 (63) 94 Mechanical Ventilator 40.00 11/19/18 18:00 97 23 106/65 (79) 92 Mechanical Ventilator 40.00 11/19/18 17:00 109 33 124/70 (88) 97 Mechanical Ventilator 40.00 11/19/18 16:05 99 28 95 40 11/19/18 16:02 99.9 97 30 105/51 96 Mechanical Ventilator 40.00 11/19/18 16:00 99.9 11/19/18 16:00 100 17 103/51 (68) 97 Mechanical Ventilator 40.00 11/19/18 16:00 92 Mechanical Ventilator 40 11/19/18 15:00 103 27 114/54 (74) 94 Mechanical Ventilator 40.00 11/19/18 14:00 103 28 96/47 (63) 94 Mechanical Ventilator 40.00 11/19/18 13:40 96 28 95 40 11/19/18 13:00 98 28 98/64 (75) 93 Mechanical Ventilator 40.00 11/19/18 13:00 102 11/19/18 12:47 99.6 102 26 98/64 92 Mechanical Ventilator 40.00 11/19/18 12:15 106 30 92 40 11/19/18 12:00 101 29 113/62 (79) 90 Mechanical Ventilator 40.00 11/19/18 12:00 92 Mechanical Ventilator 40 11/19/18 12:00 99.6 11/19/18 11:00 78 18 167/54 (91) 94 Mechanical Ventilator 40.00 11/19/18 10:25 102 28 96 40 11/19/18 10:00 106 30 114/66 (82) 94 Mechanical Ventilator 40.00 11/19/18 09:40 99.4 108 31 121/68 94 Mechanical Ventilator 40.00 11/19/18 09:00 108 32 117/65 (82) 92 Mechanical Ventilator 40.00 11/19/18 08:13 105 25 92 40 11/19/18 08:00 108 30 103/65 (78) 92 Mechanical Ventilator 40.00 11/19/18 08:00 91 Mechanical Ventilator 40 11/19/18 08:00 99.3 11/19/18 07:00 103 30 110/69 (83) 96 Mechanical Ventilator 40.00 11/19/18 07:00 105 11/19/18 06:28 99 29 93 40 11/19/18 06:00 101 27 156/87 (110) 93 Mechanical Ventilator 40.00 I & O 11/20/18 07:00 Intake Total 3510 ml Output Total 3100 ml Balance 410 ml Height & Weight Height: 5'4.00" Weight: 274lbs. 3.0oz. 124.615422dl; 46.3 BMI Method: General Appearance: No Apparent Distress, WD/WN, Obese HEENT: Moist Mucous Membranes, Other (ET tube and NG tube in place) Neck: Normal Inspection, Non Tender Respiratory: No Accessory Muscle Use, Decreased Breath Sounds (on Left), Expiration, Rhonci, Wheezing Cardiovascular: No Edema, No Gallop, No JVD, No Murmur, Normal Peripheral Pulses, Tachycardia Capillary Refill: Less Than 3 Seconds Extremity: Normal Capillary Refill, Normal Inspection, No Pedal Edema Neurologic/Psychiatric: Other (sedated) Skin: Normal Color, Warm/Dry Lymphatic: No Adenopathy Results Lab Laboratory Tests 11/19/18 03:00 11/20/18 03:20 Assessment/Plan Assessment/Plan Acute on chronic respiratory failure -Continue ventilator support -Check BNP, and give lasix 40mg x 1 -Decrease IVF to 50 cc/hr -Decrease sedation and will do vent weaning trial Pneumonia - prelim sputum is Moraxella- await final -PT has multiple allergies -Start Cefepime -MRSA nasal swab is positive. Pt is not on vanco however pt has been afebrile since admission. No leukocytosis Fever without leukocytosis -Check influenza --Walters cultures pending NSTEMI -Echo pending -Cardiology consulted -BS are high -check EKG Hypokalemia, hypophos -replace Hyperglycemia -Change insulin to [place]mier 10units BID -Change accu check to Q4 with SSI -Continue to monitor close Morbid obesity ROBERTO VAUGHN DO Nov 20, 2018 05:50
[2018-11-20] MEDS ORDERED: POTASSIUM PHOSPHATE INJ 30 MM in NS (IVPB) 250 ML IV ONE ×2 (06:00→17:15)
[2018-11-20] MEDS ORDERED: FUROSEMIDE 40 MG/4 ML INJ (LASIX) IVP ONE (06:00)
[2018-11-20] MEDS: KCL 20 MEQ TAB (K-DUR) PO SCH (06:02)
[2018-11-20] MEDS: WATER IV SCH ×8 (06:15→17:07)
[2018-11-20] MEDS: CEFEPIME IV SCH ×8 (06:15→17:07)
[2018-11-20] MEDS: ENOXAPARIN 40 MG/0.4 ML (LOVENOX) SYR SC SCH ×2 (07:27→18:41)
--- NOTE | 2018-11-20 08:33 | Occ Therapy Progress Note ---
Therapy Progress Note Pt. sedated and on ventilator. Will continue to monitor. 0833 SNOW MENDOZA OT Nov 20, 2018 08:33
--- NOTE | 2018-11-20 08:45 | Diagnostic Imaging Report ---
INDICATION: Ventilator management. COMPARISON: 11/19/2017. FINDINGS: The basilar pulmonary opacities, greater left than right, have not substantially changed from the prior exam. The apices are clear. No pneumothorax. IMPRESSION: Left greater than right bibasilar infiltrates, unchanged. Dictated by: Dictated on workstation # [id number]
--- NOTE | 2018-11-20 08:58 | NUR ---
ozielrovan off at this time, per dr. cabrera orders. Notified RT of sedation change.
[2018-11-20] MEDS ORDERED: inSUlin DETERMIR 1 UNIT/0.01 ML (LEVEMIR) CHARGE PER UNIT SQ SCH (09:00)
--- NOTE | 2018-11-20 09:20 | NUR ---
call placed to Dr. Thayer regarding patient O2 dropping, Respirations increasing, et increased agitation during vent wean. Received order to restart propofol et will attempt wean again in morning. RT present during call.
--- NOTE | 2018-11-20 09:41 | Progress Note-Cardiology ---
Cardiology SOAP Progress Note Subjective: Intubated and sedated Objective: I&O/Vital Signs 11/19/18 11/20/18 11/20/18 11/20/18 23:59 00:00 00:00 00:00 Temp 99.0 Pulse 79 78 Resp 27 25 B/P (MAP) 92/46 (61) Pulse Ox 98 97 92 O2 Delivery Mechanical Ventilator Mechanical Ventilator O2 Flow Rate 40.00 FiO2 40 40 11/20/18 11/20/18 11/20/18 11/20/18 00:48 01:00 01:00 02:00 Pulse 75 74 74 Resp B/P (MAP) 114/62 (79) 106/54 (71) Pulse Ox 99 99 O2 Delivery Mechanical Ventilator Mechanical Ventilator O2 Flow Rate 40.00 40.00 11/20/18 11/20/18 11/20/18 11/20/18 02:18 03:00 03:37 04:00 Pulse 71 78 78 80 Resp 24 B/P (MAP) 100/67 (78) 91/50 95/59 (71) Pulse Ox 100 94 92 100 O2 Delivery Mechanical Ventilator Mechanical Ventilator Mechanical Ventilator O2 Flow Rate 40.00 40.00 FiO2 40 11/20/18 11/20/18 11/20/18 11/20/18 04:15 04:16 04:19 05:00 Temp 97.9 Pulse 94 91 Resp 24 23 B/P (MAP) 110/59 (76) Pulse Ox 92 100 100 O2 Delivery Mechanical Ventilator Mechanical Ventilator O2 Flow Rate 40.00 FiO2 40 40 11/20/18 11/20/18 11/20/18 11/20/18 05:57 06:00 06:34 07:00 Pulse 98 98 67 Resp 25 25 25 B/P (MAP) 131/73 (92) 144/83 (103) Pulse Ox 95 92 92 O2 Delivery Mechanical Ventilator Mechanical Ventilator Mechanical Ventilator O2 Flow Rate 30.00 30.00 30.00 FiO2 40 11/20/18 11/20/18 11/20/18 11/20/18 07:00 07:28 07:37 08:00 Temp 97.6 Pulse 91 68 67 Resp 27 B/P (MAP) 145/71 (95) 150/85 (106) Pulse Ox 91 92 94 O2 Delivery Mechanical Ventilator Mechanical Ventilator Mechanical Ventilator O2 Flow Rate 30.00 40.00 FiO2 30 11/20/18 11/20/18 11/20/18 11/20/18 08:13 09:00 09:19 09:27 Pulse 67 64 98 92 Resp 25 42 25 B/P (MAP) 156/87 (110) Pulse Ox 95 80 95 O2 Delivery Mechanical Ventilator O2 Flow Rate 40.00 FiO2 40 40 11/20/18 10:00 Pulse 72 Resp 26 B/P (MAP) 175/79 (111) Pulse Ox 96 O2 Delivery Mechanical Ventilator O2 Flow Rate 40.00 11/20/18 00:00 Intake Total 2110 ml Output Total 1700 ml Balance 410 ml Weight (Pounds): 273 Weight (Ounces): 14.0 Weight (Calculated Kilograms): 124.493581 Constitutional: other (Intubated and sedated) Respiratory: chest expansion is symmetric, chest is bilaterally symmetric, other (diminished lower lobes bilat with fair air entry; intubated; coarse breath sounds throughout) Cardiovascular: regular rate-rhythm, S1 and S2, systolic murmur Gastrointestional: round, audible bowel sounds Extremities: no lower extremity edema bilateral Neurologic/Psychiatric: other (sedated; but does seem to move all extremities) Skin: No rash, No ulcerations Results/Procedures: Labs Laboratory Tests 11/19/18 12:20: Troponin I 0.239H 11/19/18 18:01: Troponin I 0.227H, Glucometer 325H 11/19/18 23:48: Troponin I 0.190H 11/20/18 01:18: Glucometer 319H 11/20/18 03:20: White Blood Count 9.2, Red Blood Count 3.66L, Hemoglobin 10.3L, Hematocrit 34L, Mean Corpuscular Volume 93, Mean Corpuscular Hemoglobin 28, Mean Corpuscular Hemoglobin Concent 30L, Red Cell Distribution Width 15.1H, Platelet Count 218, Mean Platelet Volume 9.8, Neutrophils (%) (Auto) 90H, Lymphocytes (%) (Auto) 4L , Monocytes (%) (Auto) 6, Eosinophils (%) (Auto) 0, Basophils (%) (Auto) 0, Neutrophils # (Auto) 8.2H, Lymphocytes # (Auto) 0.4L, Monocytes # (Auto) 0.5, Eosinophils # (Auto) 0.0, Basophils # (Auto) 0.0, Blood Gas Puncture Site RIGHT ART LINE, Blood Gas Patient Temperature 98.8, Arterial Blood pH 7.36L, Arterial Blood Partial Pressure CO2 53H, Arterial Blood Partial Pressure O2 60L, Arterial Blood HCO3 29H, Arterial Blood Total CO2 30.3, Arterial Blood Oxygen Saturation 89L, Arterial Blood Base Excess 3.6H, Zach Test POSITIVE, Blood Gas Ventilator Setting YES, Blood Gas Inspired Oxygen 40%, Sodium Level 145, Potassium Level 3.1L, Chloride Level 109H, Carbon Dioxide Level 26, Anion Gap 10 , Blood Urea Nitrogen 19H, Creatinine 0.83, Estimat Glomerular Filtration Rate > 60, BUN/Creatinine Ratio 23, Glucose Level 329H, Calcium Level 8.5, Phosphorus Level 1.7L, Magnesium Level 1.9 11/20/18 05:59: Glucometer 252H 11/20/18 07:49: Glucometer 264H Microbiology 11/19/18 Blood Culture - Preliminary, Resulted No growth 11/18/18 MRSA Screen - Final, Complete 11/19/18 Urine Culture - Preliminary, Resulted Gram Negative Bacillus 1 Procedures NAME: NERY CALDERÓN [facility] REC#: [id number] PT STATUS: ADM IN : 1950 PHYSICIAN: ROBERTO VAUGHN DO ADMIT DATE: 11/18/18/ICU Draft Date of Exam:11/20/18 CHEST 1 VIEW, AP/PA ONLY INDICATION: Ventilator management. COMPARISON: 11/19/2017. FINDINGS: The basilar pulmonary opacities, greater left than right, have not substantially changed from the prior exam. The apices are clear. No pneumothorax. IMPRESSION: Left greater than right bibasilar infiltrates, unchanged. Dictated on workstation # [id number] Dict: 11/20/18 0722 Trans: 11/20/18 0845 LOPEZ [id number] Interpreted by: MOON ROE Electronically signed by: A/P: Assessment: Acute on chronic respiratory failure requiring intubation - management per medical/pulmonary services Pneumonia - management per medical/pulmonary services Acute on chronic exacerbation of COPD Elevated troponin likely d/t hypoxia (Type 2 [place]) Electrolyte abnormalities UTI - management per medical services Morbid obesity with obesity hypoventilation syndrome DM 2 Liver enzyme elevation HLD - statin tx Plan: Acute on chronic resp failure requiring intubation Family stated pt does have a ladle handler in [place], [place] but is unsure of who it is - we will try and determine ladle handler and obtain records Echocardiogram pending Management of pneumonia as per pulmonary/medical services UTI - management per medical services Replace electrolytes Monitor lab Further recs will be based on her hospital course Physician Assessment Physician Assessment Intubated, sedated, not able to provide any history Cor: reg Lungs: fair to good bilat air entry Ext: mild edema A&R * As documented in our note above that I updated (italics) and as noted below * Replenish lytes * Monitor labs NIKOLAI STEVENSON FORESTRY AID TECHNICIAN Nov 20, 2018 09:41 BEV CANTU MD FACP FAC CCDS Nov 20, 2018 11:30
--- NOTE | 2018-11-20 09:43 | Progress Note-Hospitalist ---
LISA ACHARYA DO 11/20/18 0943: Subjective HPI/CC On Admission Date Seen by Provider: Nov 20, 2018 Time Seen by Provider: 09:15 CC: Acute respiratory distress, exacerbation COPD HPI: This is a 66 yo obese W female who presented to [facility] w/ acute respiratory distress and exacerbation of COPD. BiPAP was initiated, but hypercapnea continued to worsen so the patient was intubated and transferred to [facility] for ventilator management. [place] [facility] angio of the lungs was attempted, but pt was too obese. Pt received one round of cetriaxone and azithromycin empirically for PNA. Also received one round of Lovenox and Bumex. UA on arrival to [facility] was suspicion for infection, so urine culture pending. Subjective/Events-last exam Pt still intubated and attempting to wean. Reviewed labs and meds and notes. No concerns at this time. Blood pressure 167/84 Objective Exam Vital Signs Vital Signs Date Time Temp Pulse Resp B/P (MAP) Pulse Ox O2 Delivery O2 Flow Rate FiO2 11/20/18 18:31 63 27 96 40 11/20/18 18:00 166/72 (103) Mechanical Ventilator 40.00 11/20/18 14:00 98.7 Capillary Refill : Less Than 3 Seconds General Appearance: No Apparent Distress, WD/WN, Obese HEENT: Moist Mucous Membranes, Other (ET tube and NG tube in place) Neck: Normal Inspection, Non Tender Respiratory: No Accessory Muscle Use, Decreased Breath Sounds (on Left), Expiration, Rhonci, Wheezing Cardiovascular: No Edema, No Gallop, No JVD, No Murmur, Normal Peripheral Pulses, Tachycardia Gastrointestinal: Normal Bowel Sounds, No Organomegaly, Soft Extremity: Normal Capillary Refill, Normal Inspection, No Pedal Edema Neurologic/Psychiatric: Other (sedated) Skin: Normal Color, Warm/Dry Lymphatic: No Adenopathy Results/Procedures Lab Laboratory Tests 11/20/18 03:20 11/20/18 11:30 11/20/18 15:30 Patient resulted labs reviewed. Imaging: Reviewed Imaging Films, Reviewed Imaging Report Assessment/Plan Assessment and Plan Assess & Plan/Chief Complaint Assessment: VDRF failed biPAP Presumed MANNY Pneumonia UTI Plan: Intubation monitor closely Critical Care Critically Ill Patient Clinical Quality Measures DVT/VTE Risk/Contraindication: Risk Factor Score Per Nursin RFS Level Per Nursing on Admit: 4+=Very High FELICITA ALEMAN MEDICAL STUDENT 11/20/18 1053: Subjective HPI/CC On Admission CC: Acute respiratory distress, exacerbation COPD HPI: This is a 66 yo obese W female who presented to [facility] w/ acute respiratory distress and exacerbation of COPD. BiPAP was initiated, but hypercapnea continued to worsen so the patient was intubated and transferred to [facility] for ventilator management. At [facility] angio of the lungs was attempted, but pt was too obese. Pt received one round of cetriaxone and azithromycin empirically for PNA. Also received one round of Lovenox and Bumex. UA on arrival to [facility] was suspicious for infection, so urine culture pending. Subjective/Events-last exam Pt ABG is improving so discontinuing sedation and attempting to wean of ventilator today Pt sedated during my evaluation Review of Systems unable to obtain ROS 2/2 sedation Objective Exam General Appearance: No Apparent Distress, WD/WN, Obese HEENT: Normal ENT Inspection, Moist Mucous Membranes, Other (ET tube) Neck: Normal Inspection, Non Tender Respiratory: No Accessory Muscle Use, Decreased Breath Sounds (on Left), Expiration, Rhonci, Wheezing Cardiovascular: Regular Rate, Rhythm, No Edema, No Gallop, No Murmur, Normal Peripheral Pulses Gastrointestinal: Normal Bowel Sounds, No Organomegaly, Soft Extremity: Normal Capillary Refill, Normal Inspection, No Pedal Edema Skin: Normal Color, Warm/Dry Lymphatic: No Adenopathy Results/Procedures Imaging: Reviewed Imaging Films, Reviewed Imaging Report Assessment/Plan Assessment and Plan Assess & Plan/Chief Complaint Assessment: Acute respiratory failure requiring ventilator AECOPD PNA likely due to Moraxella based on sputum culture UTI, culture growing gram neg bacillus NSTEMI DM Obesity Hypothyroidism GERD Plan: Attempting to wean off of ventilator today IV steroids and duonebs IV cefepime Cardiology consulted, echo pending Sugar control DVT prophylaxis Critical Care Critically Ill Patient Diagnosis/Problems Diagnosis/Problems (1) Acute respiratory failure Status: Acute Qualifiers: Respiratory failure complication: unspecified whether with hypoxia or hypercapnia Qualified Codes: J96.00 - Acute respiratory failure, unspecified whether with hypoxia or hypercapnia (2) UTI (urinary tract infection) Status: Acute Qualifiers: Urinary tract infection type: acute cystitis Hematuria presence: without hematuria Qualified Codes: N30.00 - Acute cystitis without hematuria (3) Pneumonia Status: Acute Qualifiers: Pneumonia type: due to other aerobic Gram-negative bacteria Laterality: unspecified laterality Lung location: unspecified part of lung Qualified Codes: J15.6 - Pneumonia due to other gram-negative bacteria (4) Obesities, morbid Status: Chronic LISA ACHARYA DO Nov 20, 2018 09:43 FELICITA ALEMAN MEDICAL STUDENT Nov 20, 2018 10:53
[2018-11-20] MEDS ORDERED: DEXMEDETOMIDINE 1,000 MCG/NS 250 ML IV SCH ×2 (10:30)
[2018-11-20] MEDS: DEXMEDETOMIDINE INJECTION 1,000 MCG in NS (IVPB) 250 ML IV SCH (11:07)
--- NOTE | 2018-11-20 11:10 | Physical Therapy Progress Note ---
Therapy Progress Note 9:54 Pt is on mechanical ventilator. Pt will assess pt once medically stable and can participate with physical therapy services. KRISSY RAINEY PT Nov 20, 2018 11:10
[2018-11-20] MEDS: PANTOPRAZOLE 40 MG (PROTONIX) VIAL IV SCH (11:13)
[2018-11-20] MEDS: inSUlin DETERMIR 1 UNIT/0.01 ML (LEVEMIR) CHARGE PER UNIT SQ SCH ×2 (11:13→21:54)
--- NOTE | 2018-11-20 11:20 | NUR ---
Pastoral care visit, pt intubated no family present.
[2018-11-20 15:04] LABS: BASOPHILS % (AUTO) 0 % (0-10); EOSINOPHILS % (AUTO) 0 % (0-10); HEMATOCRIT 37 % (35-52); HEMOGLOBIN 11.1 G/DL (11.5-16.0); LYMPHOCYTES # (AUTO) 0.5 X 10^3 (1.0-4.0); LYMPHOCYTES % (AUTO) 4 % (12-44); MEAN CORPUSCULAR HEMOGLOBIN 28 PG (25-34); MEAN CORPUSCULAR HGB CONC 30 G/DL (32-36); MEAN CORPUSCULAR VOLUME 93 FL (80-99); MEAN PLATELET VOLUME 10.6 FL (7.4-10.4); MONOCYTES # (AUTO) 0.7 X 10^3 (0.0-1.0); MONOCYTES % (AUTO) 6 % (0-12); NEUTROPHILS # (AUTO) 10.2 X 10^3 (1.8-7.8); NEUTROPHILS % (AUTO) 90 % (42-75); PLATELET COUNT 250 10^3/uL (130-400); RED CELL DISTRIBUTION WIDTH 15.2 % (10.0-14.5); WHITE BLOOD COUNT 11.3 10^3/uL (4.3-11.0)
[2018-11-20 16:02] LABS: ALANINE AMINOTRANSFERASE 23 U/L (0-55); ALBUMIN 2.2 GM/DL (3.2-4.5); ALKALINE PHOSPHATASE 70 U/L (40-136); BILIRUBIN,TOTAL 0.4 MG/DL (0.1-1.0); BUN/CREATININE RATIO 27; CARBON DIOXIDE 19 MMOL/L (21-32); CHLORIDE 119 MMOL/L (98-107); CREATININE SERUM 0.55 MG/DL (0.60-1.30); GFR ESTIMATED > 60; GLUCOSE 230 MG/DL (70-105); SODIUM 146 MMOL/L (135-145); TOTAL PROTEIN 4.3 GM/DL (6.4-8.2)
[2018-11-20 16:26] LABS: CALCIUM 5.9 MG/DL (8.5-10.1); POTASSIUM 2.5 MMOL/L (3.6-5.0)
[2018-11-20] MEDS ORDERED: CALCIUM GLUC. 10% 4.65 MEQ/10 ML VIAL ONE (16:35)
[2018-11-20] MEDS ORDERED: KCL 20 MEQ POWDER FOR ORAL SOLUTION PO NR (16:45)
[2018-11-20] MEDS ORDERED: CALCIUM GLUC. 10% 4.65 MEQ/10 ML VIAL IV NR (16:45)
[2018-11-20] MEDS: fentaNYL INJECTION 1,250 MCG in NS (IVPB) 250 ML IV SCH (18:14)
[2018-11-20] MEDS: ACETAMINOPHEN 500 MG TAB (TYLENOL) NG PRN (22:00)
[2018-11-21] VITALS (30 sets, daily range): BP systolic 102–197; BP diastolic 51–167
[2018-11-21] MEDS: inSUlin ASPART (NovoLOG) 1 UNIT/0.01 ML (CHARGE PER UNIT) SC SCH ×4 (00:21→18:39)
[2018-11-21] MEDS: WATER IV SCH ×8 (00:21→18:46)
[2018-11-21] MEDS: CEFEPIME IV SCH ×8 (00:21→18:46)
[2018-11-21 01:51] LABS: BUN/CREATININE RATIO 25; CARBON DIOXIDE 27 MMOL/L (21-32); CHLORIDE 103 MMOL/L (98-107); CREATININE SERUM 0.73 MG/DL (0.60-1.30); GFR ESTIMATED > 60; GLUCOSE 252 MG/DL (70-105); PHOSPHORUS 2.7 MG/DL (2.3-4.7); POTASSIUM 4.4 MMOL/L (3.6-5.0); SODIUM 142 MMOL/L (135-145)
[2018-11-21] MEDS: RT-ALBUTEROL/IPRATROPIUM 3 ML (DUONEB) VIAL INH SCH ×6 (02:42→22:30)
[2018-11-21] MEDS: NS IV 1000 ML 1,000 ML IV SCH (02:42)
[2018-11-21] MEDS: PROPOFOL DRIP (ICU) 100 ML IV SCH (02:42)
[2018-11-21 03:22] LABS: BASOPHILS % (AUTO) 0 % (0-10); EOSINOPHILS % (AUTO) 0 % (0-10); HEMATOCRIT 39 % (35-52); HEMOGLOBIN 11.7 G/DL (11.5-16.0); LYMPHOCYTES # (AUTO) 0.7 X 10^3 (1.0-4.0); LYMPHOCYTES % (AUTO) 5 % (12-44); MEAN CORPUSCULAR HEMOGLOBIN 28 PG (25-34); MEAN CORPUSCULAR HGB CONC 30 G/DL (32-36); MEAN CORPUSCULAR VOLUME 92 FL (80-99); MEAN PLATELET VOLUME 9.6 FL (7.4-10.4); MONOCYTES # (AUTO) 0.8 X 10^3 (0.0-1.0); MONOCYTES % (AUTO) 6 % (0-12); NEUTROPHILS # (AUTO) 12.9 X 10^3 (1.8-7.8); NEUTROPHILS % (AUTO) 90 % (42-75); PLATELET COUNT 236 10^3/uL (130-400); WHITE BLOOD COUNT 14.5 10^3/uL (4.3-11.0)
[2018-11-21 03:23] LABS: ABG BASE EXCESS 7.7 MMOL/L (-2.5-2.5); ABG OXYGEN SATURATION 90 % (94-100); ABG PCO2 48 MMHG (35-45); ABG PH 7.44 (7.37-7.43); ABG PO2 60 MMHG (79-93); ABG TCO2 33.5 MMOL/L (21.0-31.0); ALLENS TEST ART LINE
[2018-11-21 03:24] LABS: INSPIRED O2 40%; PATIENT TEMP 99.1; VENTILATOR YES
[2018-11-21] MEDS: methylPREDNISolone 40 MG/ML (Solu-MEDROL) VIAL IV SCH ×4 (04:20→21:20)
[2018-11-21 04:32] LABS: BUN/CREATININE RATIO 23; CALCIUM 8.9 MG/DL (8.5-10.1); CARBON DIOXIDE 28 MMOL/L (21-32); CHLORIDE 103 MMOL/L (98-107); CREATININE SERUM 0.69 MG/DL (0.60-1.30); GFR ESTIMATED > 60; GLUCOSE 220 MG/DL (70-105); PHOSPHORUS 2.4 MG/DL (2.3-4.7); POTASSIUM 3.9 MMOL/L (3.6-5.0); SODIUM 142 MMOL/L (135-145)
--- NOTE | 2018-11-21 04:46 | Pulmonary Progress Note ---
Sepsis Event Evaluation Height, Weight, BMI Height: 5'4.00" Weight: 273lbs. 14.0oz. 124.336484gs; 46.3 BMI Method: Exam Exam Vital Signs Date Time Temp Pulse Resp B/P (MAP) Pulse Ox O2 Delivery O2 Flow Rate FiO2 11/21/18 04:32 75 25 96 40 11/21/18 04:00 99.1 11/21/18 04:00 92 Mechanical Ventilator 30 11/21/18 03:00 89 33 160/93 (115) 94 Mechanical Ventilator 40.00 164/90 (114) 11/21/18 02:42 66 23 97 40 11/21/18 02:42 63 11/21/18 02:00 81 25 154/93 (113) 96 Mechanical Ventilator 40.00 173/105 (127) 11/21/18 01:00 74 11/21/18 01:00 74 27 110/93 (99) 97 Mechanical Ventilator 40.00 175/74 (107) 11/21/18 00:21 64 27 95 40 11/21/18 00:00 92 Mechanical Ventilator 30 11/21/18 00:00 71 33 112/92 (99) 93 Mechanical Ventilator 40.00 165/84 (111) 11/20/18 23:57 100.0 11/20/18 23:08 90 26 129/113 (118) 92 Mechanical Ventilator 40.00 11/20/18 23:00 65 26 117/104 (108) 94 Mechanical Ventilator 30.00 160/76 (104) 11/20/18 22:43 60 27 114/101 (105) 94 Mechanical Ventilator 30.00 11/20/18 22:34 90 25 96 40 11/20/18 22:00 60 26 132/98 (109) 95 Mechanical Ventilator 40.00 177/103 (127) 11/20/18 22:00 64 11/20/18 21:00 101.1 11/20/18 21:00 62 26 119/90 (100) 96 Mechanical Ventilator 40.00 169/77 (107) 11/20/18 20:08 89 28 94 40 11/20/18 20:00 98 27 124/94 (104) 93 Mechanical Ventilator 40.00 162/80 (107) 11/20/18 20:00 92 Mechanical Ventilator 30 11/20/18 20:00 100.8 11/20/18 19:00 70 11/20/18 19:00 70 28 106/82 (90) 94 Mechanical Ventilator 40.00 164/76 (105) 11/20/18 18:31 63 27 96 40 11/20/18 18:00 66 28 166/72 (103) 94 Mechanical Ventilator 40.00 11/20/18 17:32 68 11/20/18 17:00 95 34 151/86 (107) 95 Mechanical Ventilator 40.00 11/20/18 16:03 89 27 94 40 11/20/18 16:00 92 Mechanical Ventilator 30 11/20/18 16:00 101 27 144/97 (113) 94 Mechanical Ventilator 40.00 11/20/18 15:00 71 24 164/79 (107) 95 Mechanical Ventilator 40.00 11/20/18 14:00 98.7 98 25 162/76 (104) 94 Mechanical Ventilator 40.00 11/20/18 13:43 93 29 98 40 11/20/18 13:19 66 11/20/18 13:00 63 11/20/18 13:00 90 26 188/93 (124) 94 Mechanical Ventilator 40.00 11/20/18 12:29 68 25 95 40 11/20/18 12:00 92 Mechanical Ventilator 30 11/20/18 12:00 93 23 173/95 (121) 95 Mechanical Ventilator 40.00 11/20/18 11:00 93 22 157/90 (112) 96 Mechanical Ventilator 40.00 11/20/18 10:00 72 26 175/79 (111) 96 Mechanical Ventilator 40.00 11/20/18 09:27 92 25 95 40 11/20/18 09:19 98 42 80 40 11/20/18 09:00 64 25 156/87 (110) 95 Mechanical Ventilator 40.00 11/20/18 08:13 67 11/20/18 08:00 67 27 150/85 (106) 94 Mechanical Ventilator 40.00 11/20/18 07:37 92 Mechanical Ventilator 30 11/20/18 07:28 97.6 68 26 145/71 (95) 91 Mechanical Ventilator 30.00 11/20/18 07:00 91 11/20/18 07:00 67 25 144/83 (103) 92 Mechanical Ventilator 30.00 11/20/18 06:34 98 25 92 40 11/20/18 06:00 98 25 131/73 (92) 95 Mechanical Ventilator 30.00 11/20/18 05:57 Mechanical Ventilator 30.00 11/20/18 05:00 91 23 110/59 (76) 100 Mechanical Ventilator 40.00 I & O 11/21/18 07:00 Intake Total 1565 ml Output Total 3925 ml Balance -2360 ml Height & Weight Height: 5'4.00" Weight: 273lbs. 14.0oz. 124.257044ff; 46.3 BMI Method: General Appearance: No Apparent Distress, WD/WN, Obese HEENT: Moist Mucous Membranes, Other (ET tube and NG tube in place) Neck: Normal Inspection, Non Tender Respiratory: No Accessory Muscle Use, Decreased Breath Sounds (on Left), Expiration, Rhonci, Wheezing Cardiovascular: No Edema, No Gallop, No JVD, No Murmur, Normal Peripheral Pulses, Tachycardia Capillary Refill: Less Than 3 Seconds Extremity: Normal Capillary Refill, Normal Inspection, No Pedal Edema Neurologic/Psychiatric: Other (sedated) Skin: Normal Color, Warm/Dry Lymphatic: No Adenopathy Results Lab Laboratory Tests 11/20/18 03:20 11/20/18 11:30 11/20/18 15:30 11/21/18 01:30 11/21/18 03:15 Assessment/Plan Assessment/Plan Acute on chronic respiratory failure -Continue ventilator support -will attempt vent weaning today. change to SIMV/PS for now until awake then CPAP mode. -Check BNP, and give lasix 40mg x 1 -Decrease sedation and will do vent weaning trial Pneumonia - prelim sputum is Moraxella- await final -PT has multiple allergies -Start Cefepime -MRSA nasal swab is positive. Pt is not on vanco however pt has been afebrile since admission. No leukocytosis Fever without leukocytosis -Check influenza --Walters cultures pending NSTEMI -Echo pending -Cardiology consulted -BS are high -check EKG Hyperglycemia -Change insulin to Levemier 10units BID -Change accu check to Q4 with SSI -Continue to monitor close Morbid obesity ROBERTO VAUGHN DO Nov 21, 2018 04:46
[2018-11-21] MEDS: MAGNESIUM 1 GM/100 ML IVPB 100 ML IV SCH (05:16)
[2018-11-21] MEDS: KCL 20 MEQ TAB (K-DUR) PO SCH (05:16)
[2018-11-21] MEDS: POTASSIUM CL 10MEQ/50ML IVPB 50 ML IV SCH (05:16)
--- NOTE | 2018-11-21 06:48 | Diagnostic Imaging Report ---
INDICATION: Respiratory distress COMPARISON: 11/20/2018 FINDINGS: Single view of the chest demonstrates stable support lines. The heart remains enlarged with stable bilateral interstitial infiltrates. There is unchanged effusion left base. There is no pneumothorax. IMPRESSION: Unchanged aeration of the lungs. Dictated by: Dictated on workstation # [id number]
[2018-11-21 07:59] LABS: ABG BASE EXCESS 7.3 MMOL/L (-2.5-2.5); ABG OXYGEN SATURATION 87 % (94-100); ABG PCO2 48 MMHG (35-45); ABG PH 7.43 (7.37-7.43); ABG PO2 51 MMHG (79-93); ABG TCO2 33.2 MMOL/L (21.0-31.0)
[2018-11-21 08:03] LABS: ALLENS TEST ART LINE; INSPIRED O2 30; PATIENT TEMP 97.6; VENTILATOR YES
--- NOTE | 2018-11-21 08:26 | Progress Note-Cardiology ---
Cardiology SOAP Progress Note Subjective: Still intubated at time of my exam, but responsive and wants tube out. Does not seem to report any symptoms of cp or other discomfort Objective: I&O/Vital Signs 11/20/18 11/20/18 11/20/18 11/20/18 21:00 21:00 22:00 22:00 Temp 101.1 Pulse 62 64 60 Resp 26 B/P (MAP) 119/90 (100) 132/98 (109) 169/77 (107) 177/103 (127) Pulse Ox 96 95 O2 Delivery Mechanical Ventilator Mechanical Ventilator O2 Flow Rate 40.00 40.00 11/20/18 11/20/18 11/20/18 11/20/18 22:34 22:43 23:00 23:08 Pulse 90 60 65 90 Resp 25 26 B/P (MAP) 114/101 (105) 117/104 (108) 129/113 (118) 160/76 (104) Pulse Ox 96 94 94 92 O2 Delivery Mechanical Ventilator Mechanical Ventilator Mechanical Ventilator O2 Flow Rate 30.00 30.00 40.00 FiO2 40 11/20/18 11/21/18 11/21/18 11/21/18 23:57 00:00 00:00 00:21 Temp 100.0 Pulse 71 64 Resp 33 27 B/P (MAP) 112/92 (99) 165/84 (111) Pulse Ox 93 92 95 O2 Delivery Mechanical Ventilator Mechanical Ventilator O2 Flow Rate 40.00 FiO2 30 40 11/21/18 11/21/18 11/21/18 11/21/18 01:00 01:00 02:00 02:42 Pulse 74 74 81 63 Resp 25 B/P (MAP) 110/93 (99) 154/93 (113) 175/74 (107) 173/105 (127) Pulse Ox 97 96 O2 Delivery Mechanical Ventilator Mechanical Ventilator O2 Flow Rate 40.00 40.00 11/21/18 11/21/18 11/21/18 11/21/18 02:42 03:00 04:00 04:00 Pulse 66 89 61 Resp 23 33 23 B/P (MAP) 160/93 (115) 113/106 (108) 164/90 (114) 171/78 (109) Pulse Ox 97 94 97 92 O2 Delivery Mechanical Ventilator Mechanical Ventilator Mechanical Ventilator O2 Flow Rate 40.00 40.00 FiO2 40 30 11/21/18 11/21/18 11/21/18 11/21/18 04:00 04:32 04:48 05:00 Temp 99.1 Pulse 75 59 Resp 25 22 B/P (MAP) 109/98 (102) 169/97 (121) Pulse Ox 96 98 O2 Delivery Mechanical Ventilator O2 Flow Rate 40.00 FiO2 40 40 11/21/18 11/21/18 11/21/18 11/21/18 06:00 06:08 07:00 07:28 Temp 96.6 Pulse 68 68 58 62 Resp 28 21 20 B/P (MAP) 157/97 (117) 157/83 (107) 197/67 (110) 155/101 (119) Pulse Ox 99 99 94 O2 Delivery Mechanical Ventilator Mechanical Ventilator O2 Flow Rate 40.00 30.00 FiO2 40 11/21/18 07:32 Pulse Ox 92 O2 Delivery Mechanical Ventilator FiO2 30 11/21/18 00:00 Intake Total 1155 ml Output Total 1500 ml Balance -345 ml Weight (Pounds): 270 Weight (Ounces): 14.0 Weight (Calculated Kilograms): 122.394850 Constitutional: other (Intubated but responsive) Respiratory: chest expansion is symmetric, chest is bilaterally symmetric, other (diminished lower lobes bilat with fair air entry; intubated; coarse breath sounds throughout) Cardiovascular: regular rate-rhythm, S1 and S2, systolic murmur Gastrointestional: round, audible bowel sounds Extremities: no lower extremity edema bilateral Neurologic/Psychiatric: other (Intubated, bu off sedation and does seem to move all extremities) Skin: No rash, No ulcerations Results/Procedures: Labs Laboratory Tests 11/20/18 11:30: White Blood Count 11.3H, Red Blood Count 4.03L, Hemoglobin 11.1L, Hematocrit 37 , Mean Corpuscular Volume 93, Mean Corpuscular Hemoglobin 28, Mean Corpuscular Hemoglobin Concent 30L, Red Cell Distribution Width 15.2H, Platelet Count 250, Mean Platelet Volume 10.6H, Neutrophils (%) (Auto) 90H, Lymphocytes (%) (Auto) 4L, Monocytes (%) (Auto) 6, Eosinophils (%) (Auto) 0, Basophils (%) (Auto) 0, Neutrophils # (Auto) 10.2H, Lymphocytes # (Auto) 0.5L, Monocytes # (Auto) 0.7, Eosinophils # (Auto) 0.0, Basophils # (Auto) 0.0 11/20/18 12:30: Glucometer 278H 11/20/18 15:30: Sodium Level 146H, Potassium Level 2.5*L, Chloride Level 119#H, Carbon Dioxide Level 19L, Anion Gap 8, Blood Urea Nitrogen 15, Creatinine 0.55L, Estimat Glomerular Filtration Rate > 60, BUN/Creatinine Ratio 27, Glucose Level 230H, Calcium Level 5.9#*L, Corrected Calcium 7.3L, Phosphorus Level 1.6L, Total Bilirubin 0.4, Aspartate Amino Transf (AST/SGOT) 11, Alanine Aminotransferase ( ALT/SGPT) 23, Alkaline Phosphatase 70, Total Protein 4.3L, Albumin 2.2L 11/20/18 20:12: Glucometer 216H 11/21/18 00:18: Glucometer 233H 11/21/18 01:30: Sodium Level 142, Potassium Level 4.4, Chloride Level 103, Carbon Dioxide Level 27, Anion Gap 12, Blood Urea Nitrogen 18, Creatinine 0.73, Estimat Glomerular Filtration Rate > 60, BUN/Creatinine Ratio 25, Glucose Level 252H, Calcium Level 9.0, Phosphorus Level 2.7, Magnesium Level 2.0 11/21/18 03:15: Sodium Level 142, Potassium Level 3.9, Chloride Level 103, Carbon Dioxide Level 28, Anion Gap 11, Blood Urea Nitrogen 16, Creatinine 0.69, Estimat Glomerular Filtration Rate > 60, BUN/Creatinine Ratio 23, Glucose Level 220H, Calcium Level 8.9, Phosphorus Level 2.4, Magnesium Level 2.0, White Blood Count 14.5H, Red Blood Count 4.25L, Hemoglobin 11.7, Hematocrit 39, Mean Corpuscular Volume 92, Mean Corpuscular Hemoglobin 28, Mean Corpuscular Hemoglobin Concent 30L, Red Cell Distribution Width 15.0H, Platelet Count 236, Mean Platelet Volume 9.6 , Neutrophils (%) (Auto) 90H, Lymphocytes (%) (Auto) 5L, Monocytes (%) (Auto) 6 , Eosinophils (%) (Auto) 0, Basophils (%) (Auto) 0, Neutrophils # (Auto) 12.9H, Lymphocytes # (Auto) 0.7L, Monocytes # (Auto) 0.8, Eosinophils # (Auto) 0.0, Basophils # (Auto) 0.0, Blood Gas Puncture Site ALE, Blood Gas Patient Temperature 99.1, Arterial Blood pH 7.44H, Arterial Blood Partial Pressure CO2 48H, Arterial Blood Partial Pressure O2 60L, Arterial Blood HCO3 32H, Arterial Blood Total CO2 33.5H, Arterial Blood Oxygen Saturation 90L, Arterial Blood Base Excess 7.7H, Zach Test ART LINE, Blood Gas Ventilator Setting YES, Blood Gas Inspired Oxygen 40% 11/21/18 07:54: Blood Gas Puncture Site RT RAD, Blood Gas Patient Temperature 97.6, Arterial Blood pH 7.43, Arterial Blood Partial Pressure CO2 48H, Arterial Blood Partial Pressure O2 51L, Arterial Blood HCO3 32H, Arterial Blood Total CO2 33.2H, Arterial Blood Oxygen Saturation 87L, Arterial Blood Base Excess 7.3H, Zach Test ART LINE, Blood Gas Ventilator Setting YES, Blood Gas Inspired Oxygen 30 11/21/18 08:12: Glucometer 180H Microbiology 11/19/18 Blood Culture - Preliminary, Resulted No growth 11/18/18 MRSA Screen - Final, Complete 11/19/18 Urine Culture - Preliminary, Resulted Gram Negative Bacillus 1 Laboratory Tests 11/20/18 03:20 11/20/18 11:30 11/20/18 15:30 11/21/18 01:30 11/21/18 03:15 A/P: Assessment: Acute on chronic respiratory failure requiring intubation - management per medical/pulmonary services Pneumonia - management per medical/pulmonary services Acute on chronic exacerbation of COPD Elevated troponin likely d/t hypoxia (Type 2 [place]) Echo of 11/20/18: LVEF 50-55%, no RWMA, mild dilatation of LA Electrolyte abnormalities, improved after treatment UTI - management per medical services Obesity with obesity hypoventilation syndrome DM 2 Liver enzyme elevation H/o hyperlipidemia Plan: Acute on chronic resp failure requiring intubation Family stated pt does have a ground transportation operator in [place], [place] but is unsure of who it is - we will try and determine ground transportation operator and obtain records Echocardiogram pending Management of pneumonia as per pulmonary/medical services UTI - management per medical services Replace electrolytes Monitor lab Further recs will be based on her hospital course BEV CANTU MD FACP FAC CCDS Nov 21, 2018 08:26
--- NOTE | 2018-11-21 08:32 | NUR ---
patient extubated at this time. RT at bedside, removed ET tube. restraints removed. Patient placed on 3l nc, o2 sats 95%. Patient talking, voice hoarse, coughing. Voices no complaints at this time.
[2018-11-21] MEDS: PATIENT MAY USE OWN MED,SINGLE MED PO SCH ×2 (08:50→21:51)
--- NOTE | 2018-11-21 08:58 | NUR ---
ABG RESULTS REPORTED TO DR. VAUGHN, EXTUBATION ORDERED, DONE AT 0832 HRS WITHOUT DIFFICULTY, O2 IN PLACE PER NC AT 3 L/M WITH SPO2 = 93%.
[2018-11-21] MEDS: PANTOPRAZOLE 40 MG (PROTONIX) VIAL IV SCH (09:04)
[2018-11-21] MEDS: ENOXAPARIN 40 MG/0.4 ML (LOVENOX) SYR SC SCH (09:04)
[2018-11-21] MEDS: inSUlin DETERMIR 1 UNIT/0.01 ML (LEVEMIR) CHARGE PER UNIT SQ SCH ×2 (09:05→21:20)
--- NOTE | 2018-11-21 09:18 | Progress Note-Hospitalist ---
Subjective HPI/CC On Admission Date Seen by Provider: Nov 21, 2018 Time Seen by Provider: 09:30 CC: Acute respiratory distress, exacerbation COPD HPI: This is a 66 yo obese W female who presented to [facility] w/ acute respiratory distress and exacerbation of COPD. BiPAP was initiated, but hypercapnea continued to worsen so the patient was intubated and transferred to [facility] for ventilator management. At [facility] [place] angio of the lungs was attempted, but pt was too obese. Pt received one round of cetriaxone and azithromycin empirically for PNA. Also received one round of Lovenox and Bumex. UA on arrival to [facility] was suspicious for infection, so urine culture pending. Subjective/Events-last exam Acute respiratory failure now resolved and she is now extubated Can't really talk clearly due to dry mouth Reviewed meds and labs Overall much improved May eventually need inpatient rehab because she did live at home prior to this acute illness and she does appear to be very week Review of Systems General: Fatigue Pulmonary: Dyspnea Objective Exam Vital Signs Vital Signs Date Time Temp Pulse Resp B/P (MAP) Pulse Ox O2 Delivery O2 Flow Rate FiO2 11/21/18 20:00 118 25 129/94 (106) 93 Nasal Cannula 5.00 11/21/18 14:17 97.0 11/21/18 07:32 30 Capillary Refill : Less Than 3 Seconds General Appearance: No Apparent Distress, WD/WN, Chronically ill, Obese HEENT: Moist Mucous Membranes, Other (ET tube and NG tube in place) Neck: Normal Inspection, Non Tender Respiratory: No Accessory Muscle Use, Decreased Breath Sounds (on Left), Expiration, Rhonci, Wheezing Cardiovascular: No Edema, No Gallop, No JVD, No Murmur, Normal Peripheral Pulses, Tachycardia Gastrointestinal: Normal Bowel Sounds, No Organomegaly, Soft Extremity: Normal Capillary Refill, Normal Inspection, No Pedal Edema Neurologic/Psychiatric: Other (sedated) Skin: Normal Color, Warm/Dry Lymphatic: No Adenopathy Results/Procedures Lab Laboratory Tests 11/21/18 01:30 11/21/18 03:15 Patient resulted labs reviewed. Imaging: Reviewed Imaging Films, Reviewed Imaging Report Assessment/Plan Assessment and Plan Assess & Plan/Chief Complaint Assessment: VDRF failed biPAP now extubated Presumed MANNY Pneumonia UTI Plan: Extubation monitor closely Critical Care Critically Ill Patient Diagnosis/Problems Diagnosis/Problems (1) Acute respiratory failure Status: Acute Qualifiers: Respiratory failure complication: unspecified whether with hypoxia or hypercapnia Qualified Codes: J96.00 - Acute respiratory failure, unspecified whether with hypoxia or hypercapnia (2) Pneumonia Status: Acute Qualifiers: Pneumonia type: due to other aerobic Gram-negative bacteria Laterality: unspecified laterality Lung location: unspecified part of lung Qualified Codes: J15.6 - Pneumonia due to other gram-negative bacteria (3) UTI (urinary tract infection) Status: Acute Qualifiers: Urinary tract infection type: acute cystitis Hematuria presence: without hematuria Qualified Codes: N30.00 - Acute cystitis without hematuria (4) Obesities, morbid Status: Chronic Clinical Quality Measures DVT/VTE Risk/Contraindication: Risk Factor Score Per Nursin RFS Level Per Nursing on Admit: 4+=Very High LISA ACHARYA DO Nov 21, 2018 09:18
[2018-11-21] MEDS: fentaNYL INJECTION 1,250 MCG in NS (IVPB) 250 ML IV SCH (12:02)
--- NOTE | 2018-11-21 13:51 | Physical Therapy Evaluation ---
PT Evaluation-General Medical Diagnosis Admission Date Nov 18, 2018 at 20:03 Medical Diagnosis: Acute Respiratory Failure Onset Date: Nov 18, 2018 Therapy Diagnosis Therapy Diagnosis: decreased mobility, strength, endurance Height/Weight Height (Feet): 5 Height (Inches): 4.00 Weight (Pounds): 270 Weight (Ounces): 14.0 Precautions Precautions/Isolations: Contact Isolation, Fall Prevention, Standard Precautions Weight Bear Status Right Lower Extremity: Right Weight Bearing/Tolerated Left Lower Extremity: Left Weight Bearing/Tolerated Referral Physician: Flaca Reason for Referral: Evaluation/Treatment Medical History Pertinent Medical History: HTN Additional Medical History Obesity Reviewed History: Yes Social History Home: Single Level Current Living Status: Alone Prior/Core FIM Prior Level of Function Therapy Code Descriptions/Definitions Functional [place] Measure: 0=Not Assessed/NA 4=Minimal Assistance 1=Total Assistance 5=Supervision or Setup 2=Maximal Assistance 6=Modified [place] 3=Moderate Assistance 7=Complete [place] Therapy Quality Codes: 6 Independent with activity with or without an assistive device 5 Patient requires set up or clean up by helper. Patient completes activity by themselves 4 Supervision or touching assist (CGA). [place] provide cues , steadying assist 3 The helper provides less than half the effort to complete the activity 2 The helper provides more than half the effort to complete the activity 1 Dependent. The helper does all the effort to complete an activity 7 Patient refused to complete or attempt activity 9 The patient did not perform the activity before the current illness or injury 88 Not attempted due to Medical conditions or safety concerns Functional Abilities and Goals: Independent: Patient completed the activities by him/herself, with or without an assistive device, with no assistance from a helper. Needed Some Help: Patient needed partial assistance from another person to complete activities. Dependent: A helper completed the activities for the patient. Unknown: Not Applicable: Bed Mobility: 7 Transfers (B,C,W/C) (FIM): 7 Gait: 7 Indoor Mobility (Ambulation): Independent Prior Devices Use: None PT Evaluation-Current Subjective Pt is in recliner and agrees to PT. Requests to use phone to call because her cats are alone at her house. PT will notify nurse of request. Pain Numeric Pain Scale: 0-No Pain Location: No Pain Reported Objective Patient Orientation: Person, Confused Attachments: Oxygen (5L nasal canula), Li Catheter, IV ROM/Strength ROM Lower Extremities WNL Strength Lower Extremities gross motor RLE (4/5) LLE (quads, hamstrings (4/5)) (DF/PF 3+/5) Integumentary/Posture Bladder Incontinence: Li Cath Neuromuscular (Tone, Coordination, Reflexes) NT Sensory Vision: Functional Hearing: Functional Sensation Right Lower Extremit: Intact Sensation Left Lower Extremity: Intact Transfers Therapy Code Descriptions/Definitions Functional [place] Measure: 0=Not Assessed/NA 4=Minimal Assistance 1=Total Assistance 5=Supervision or Setup 2=Maximal Assistance 6=Modified [place] 3=Moderate Assistance 7=Complete [place] Assessment/Needs Pt in recliner and vitals were constantly jumping with just pt sitting and talking. HR ranged from 160-130 during tx. SaO2 from 96-64%. Pt was able to perform sitting LE ex (AP, LAQ, hip flexion) x10 reps. PT notified nurse of vitals and she reports they were keeping an eye on it. PT decided it was not safe to perform transfers or amb with pt. Pt has all needs met. Nurse in room with patient when PT leaves. Rehab Potential: Poor Post Rehab Potential-Barriers: co-morbidities, current status PT Short Term Goals Short Term Goals Time Frame: Nov 28, 2018 Transfers (B,C,W/C) (FIM): 4 Gait (FIM): 1 Distance (FIM): 1=up to 49 ft Gait Distance Comment: 25' Gait Level of Assist: 4 Gait Assistive Device: FWW PT Plan Problem List Problem List: Activity Tolerance, Functional Strength, Safety, Balance, Gait, Transfer, Bed Mobility, ROM Treatment/Plan Treatment Plan: Continue Plan of Care Treatment Plan: Bed Mobility, Concurrent Therapy, Education, Functional Activity Darrell, Functional Strength, Gait, Safety, Therapeutic Exercise, Transfers Treatment Duration: Nov 28, 2018 Frequency: 6 times per week Estimated Hrs Per Day: .25 hour per day (15-30') Patient and/or Family Agrees t: Yes Safety Risks/Education Patient Education: Correct Positioning, Safety Issues Teaching Recipient: Patient Teaching Methods: Demonstration, Discussion Response to Teaching: Reinforcement Needed Discharge Recommendations Plan Patient will perform bed mobility and transfer training, balance and endurance training, functional strengthening, stair training, gait training, and education , to improve functional mobility and independence at home. Therapy D/C Recommendations: Assisted Living, Fpc Placement, Intermediate (TCU/NH) Time/GCodes Time In: 1310 Time Out: 1320 Total Billed Treatment Time: 10 Total Billed Treatment 1 visit EVM 10 min MICHELLE LEWIS PT Nov 21, 2018 13:51
--- NOTE | 2018-11-21 13:55 | NUR ---
PATIENT HEARTRATE ELEVATED. EKG OBTAINED AT THIS TIME, SINUS TACHYCARDIA IRREGULAR RHYTHM, SPOKE WITH DR. CANTU RECEIVED ORDER FOR METOPROLOL XR 100 MG NOW ET DAILY, COPY OF EKG SENT TO DR. PETERS. NOTIFIED DR. VAUGHN NO IV ACCESS AT THIS TIME, RECEIVED ORDER FOR PICC LINE AT THIS TIME.
--- NOTE | 2018-11-21 13:56 | Occ Therapy Progress Note ---
Therapy Progress Note Pt. extubated today. OT monitoring and to evaluate at extubation. Checked chart. Spoke with PT. Reported that at their treatment, pt's vitals/HR iritic. OT went to assess pt. Pt. back in bed. Getting ready to have EKG, being assessed by nursing. Will continue to monitor pt. and check back as time allows. Otherwise, will assess in a.m. 1, visit 1355 SNOW MENDOZA OT Nov 21, 2018 13:56
[2018-11-21] MEDS ORDERED: meTOprolol SUCCINATE 100 MG (TOPROL XL) TAB PO NR (14:00)
[2018-11-21] MEDS ORDERED: DIGOXIN 0.25 MG/ML (LANOXIN) 2 ML AMP IV NR (14:00)
--- NOTE | 2018-11-21 15:37 | NUR ---
CALL PLACED TO DR. CANTU REGARDING PT RHYTHM CHANGE TO AFIB. EKG SENT TO DR. PETERS. RECEIVED NEW ORDERS FOR D/C LOVENOX ET BEGIN ELIQUIS 5MG 1 TAB NOW, THEN BID STARTING TOMORROW, IF OK WITH MEDICAL DR (DR ACHARYA NOTIFIED, STATED OK), START CARDIZEM GTT 10MG/HR TITRATE TO KEEP PULSE BELOW 120.
[2018-11-21] MEDS ORDERED: DILTIAZEM INJECTION 125 MG in NS (IVPB) 100 ML IV SCH (15:45)
[2018-11-21] MEDS ORDERED: APIXABAN 5 MG (ELIQUIS) TABLET PO NR (15:45)
--- NOTE | 2018-11-21 17:22 | Diagnostic Imaging Report ---
INDICATION: Evaluate PICC line placement. COMPARISON: Prior examination from 11/21/2018. EXAMINATION: Single view of the chest was obtained. FINDINGS: There is cardiomegaly. There is some venous congestion. There are patchy bibasilar infiltrates. Left pleural effusion. There is no pneumothorax. There is now a left upper extremity PICC line which has its tip in the superior vena cava. IMPRESSION: 1. The left upper extremity PICC line has tip in the superior vena cava. 2. Bibasilar infiltrates, left greater than right, with a left pleural effusion. 3. Cardiomegaly and some central pulmonary venous congestion. Dictated by: Dictated on workstation # [id number]
[2018-11-22] VITALS (19 sets, daily range): BP systolic 84–149; BP diastolic 39–97
[2018-11-22] MEDS: WATER IV SCH ×4 (00:22→06:12)
[2018-11-22] MEDS: CEFEPIME IV SCH ×4 (00:22→06:12)
[2018-11-22] MEDS: inSUlin ASPART (NovoLOG) 1 UNIT/0.01 ML (CHARGE PER UNIT) SC SCH ×4 (00:29→18:00)
[2018-11-22] MEDS: RT-ALBUTEROL/IPRATROPIUM 3 ML (DUONEB) VIAL INH SCH ×6 (02:40→22:41)
[2018-11-22] MEDS ORDERED: ALPRAZolam 0.25 MG (XANAX) TAB ONE (02:50)
[2018-11-22] MEDS ORDERED: ALPRAZolam 0.25 MG (XANAX) TAB PO PRN (03:00)
[2018-11-22 03:27] LABS: BASOPHILS # (AUTO) 0.1 10^3/uL (0.0-0.1); BASOPHILS % (AUTO) 1 % (0-10); EOSINOPHILS % (AUTO) 0 % (0-10); HEMATOCRIT 43 % (35-52); HEMOGLOBIN 13.4 G/DL (11.5-16.0); LYMPHOCYTES # (AUTO) 0.8 X 10^3 (1.0-4.0); LYMPHOCYTES % (AUTO) 4 % (12-44); MEAN CORPUSCULAR HEMOGLOBIN 28 PG (25-34); MEAN CORPUSCULAR HGB CONC 31 G/DL (32-36); MEAN CORPUSCULAR VOLUME 90 FL (80-99); MEAN PLATELET VOLUME 9.7 FL (7.4-10.4); MONOCYTES # (AUTO) 0.9 X 10^3 (0.0-1.0); MONOCYTES % (AUTO) 4 % (0-12); NEUTROPHILS # (AUTO) 18.4 X 10^3 (1.8-7.8); NEUTROPHILS % (AUTO) 91 % (42-75); PLATELET COUNT 337 10^3/uL (130-400); RED CELL DISTRIBUTION WIDTH 15.6 % (10.0-14.5); WHITE BLOOD COUNT 20.2 10^3/uL (4.3-11.0)
[2018-11-22 03:43] LABS: BUN/CREATININE RATIO 17; CALCIUM 9.4 MG/DL (8.5-10.1); CARBON DIOXIDE 31 MMOL/L (21-32); CHLORIDE 95 MMOL/L (98-107); CREATININE SERUM 0.65 MG/DL (0.60-1.30); GFR ESTIMATED > 60; GLUCOSE 163 MG/DL (70-105); MAGNESIUM 2.4 MG/DL (1.8-2.4); PHOSPHORUS 2.3 MG/DL (2.3-4.7); SODIUM 141 MMOL/L (135-145)
[2018-11-22] MEDS: NS IV 1000 ML 1,000 ML IV SCH (04:25)
[2018-11-22] MEDS: methylPREDNISolone 40 MG/ML (Solu-MEDROL) VIAL IV SCH ×2 (04:53→22:02)
[2018-11-22 05:00] LABS: LYMPHOCYTES % (MANUAL) 5 %; MONOCYTES % (MANUAL) 5 %; NEUTROPHILS % (MANUAL) 90 %
[2018-11-22] MEDS ORDERED: FUROSEMIDE 40 MG/4 ML INJ (LASIX) IVP ONE (05:15)
[2018-11-22] MEDS ORDERED: KCL 10 MEQ TAB (MICRO K) PO ONE (05:15)
--- NOTE | 2018-11-22 05:15 | Pulmonary Progress Note ---
Subjective Time Seen by a Provider: 07:16 Subjective/Events-last exam Pt is currently on cardizem gtt. Sepsis Event Evaluation Height, Weight, BMI Height: 5'4.00" Weight: 270lbs. 14.0oz. 122.538480xc; 46.3 BMI Method: Exam Exam Vital Signs Date Time Temp Pulse Resp B/P (MAP) Pulse Ox O2 Delivery O2 Flow Rate FiO2 11/22/18 04:20 97.6 11/22/18 04:20 Nasal Cannula 5.00 11/22/18 04:00 92 12 105/77 (86) 94 Nasal Cannula 5.00 11/22/18 03:00 88 29 120/86 (97) 92 Nasal Cannula 5.00 11/22/18 02:42 94 5.00 11/22/18 02:00 92 25 126/82 (97) 93 Nasal Cannula 5.00 11/22/18 01:00 97 11/22/18 01:00 120 16 136/89 (105) 94 Nasal Cannula 5.00 11/22/18 00:00 Nasal Cannula 5.00 11/22/18 00:00 98.4 11/22/18 00:00 101 23 149/92 (111) 91 Nasal Cannula 5.00 11/21/18 23:00 107 30 151/97 (115) 91 Nasal Cannula 5.00 11/21/18 22:32 92 5.00 11/21/18 22:00 102 22 138/87 (104) 91 Nasal Cannula 5.00 11/21/18 21:00 96 28 148/95 (112) 91 Nasal Cannula 5.00 11/21/18 20:15 Nasal Cannula 5.00 11/21/18 20:00 118 25 129/94 (106) 93 Nasal Cannula 5.00 11/21/18 20:00 98.9 11/21/18 19:16 99 5.00 11/21/18 19:00 99 26 127/84 (98) 98 Nasal Cannula 5.00 11/21/18 19:00 110 11/21/18 18:10 122 17 184/143 (157) Nasal Cannula 5.00 11/21/18 17:00 135 29 137/83 (101) 93 Nasal Cannula 5.00 11/21/18 16:00 123 36 165/90 (115) Nasal Cannula 5.00 11/21/18 16:00 96 Nasal Cannula 5.00 11/21/18 15:09 128 173/105 (127) Nasal Cannula 5.00 11/21/18 14:35 93 5.00 11/21/18 14:17 97.0 130 20 155/94 (114) 96 Nasal Cannula 5.00 148/98 (115) 11/21/18 14:00 131 24 179/91 (120) 100 Nasal Cannula 5.00 149/98 (115) 11/21/18 13:00 117 38 138/66 (90) 79 Nasal Cannula 5.00 140/51 (80) 11/21/18 13:00 122 11/21/18 12:00 101 22 163/94 (117) 64 Nasal Cannula 5.00 120/90 (100) 11/21/18 11:55 94 Nasal Cannula 5.00 11/21/18 11:00 98 27 175/102 (126) 89 Nasal Cannula 5.00 148/99 (115) 11/21/18 10:24 92 NIV Bilevel 5.00 11/21/18 10:00 73 17 162/88 (112) 89 Nasal Cannula 3.00 160/101 (120) 11/21/18 09:00 65 24 156/67 (96) 86 Nasal Cannula 3.00 179/86 (117) 11/21/18 08:32 63 21 185/96 (125) 95 Nasal Cannula 3.00 11/21/18 08:00 97 39 173/167 (169) 93 Mechanical Ventilator 30.00 167/91 (116) 11/21/18 07:32 92 Mechanical Ventilator 30 11/21/18 07:28 96.6 62 20 157/83 (107) 94 Mechanical Ventilator 30.00 155/101 (119) 11/21/18 07:00 58 11/21/18 06:08 68 21 99 40 11/21/18 06:00 68 28 157/97 (117) 99 Mechanical Ventilator 40.00 197/67 (110) I & O 11/22/18 07:00 Intake Total 3000 ml Output Total 7825 ml Balance -4825 ml Height & Weight Height: 5'4.00" Weight: 270lbs. 14.0oz. 122.099753ss; 46.3 BMI Method: General Appearance: No Apparent Distress, WD/WN, Chronically ill, Obese HEENT: Moist Mucous Membranes, Other (ET tube and NG tube in place) Neck: Normal Inspection, Non Tender Respiratory: No Accessory Muscle Use, Decreased Breath Sounds (on Left), Expiration, Rhonci, Wheezing Cardiovascular: No Edema, No Gallop, No JVD, No Murmur, Normal Peripheral Pulses, Tachycardia Capillary Refill: Less Than 3 Seconds Extremity: Normal Capillary Refill, Normal Inspection, No Pedal Edema Neurologic/Psychiatric: Other (sedated) Skin: Normal Color, Warm/Dry Lymphatic: No Adenopathy Results Lab Laboratory Tests 11/20/18 11:30 11/20/18 15:30 11/21/18 01:30 11/21/18 03:15 11/22/18 03:12 Assessment/Plan Assessment/Plan Acute on chronic respiratory failure -off ventilator doing well respiratory porras -Use noninvasive ventilation at night -Pt would benefit from vent to mask and is currently high risk for multiple recurrent hospitalizations -Will try to get pt approved for vent to mask -Decrease solumedrol to 40 Q 12 -give 40mg of Lasix IV X 1 Afib rvr -on cardizem gtt -Cardiology following -Eliquis Pneumonia - prelim sputum is Moraxella- await final -PT has multiple allergies -Cefepime -MRSA nasal swab is positive. Pt is not on vanco however pt has been afebrile since admission. No leukocytosis Fever without leukocytosis -Check influenza --Walters cultures pending NSTEMI -Echo EF 50-55% -Cardiology consulted Hyperglycemia -Levemier 10units BID -Change accu check to Q4 with SSI -Continue to monitor close Morbid obesity with OHS - ROBERTO VAUGHN DO Nov 22, 2018 05:15
--- NOTE | 2018-11-22 05:23 | Progress Note-Hospitalist ---
Subjective HPI/CC On Admission Date Seen by Provider: Nov 22, 2018 Time Seen by Provider: 08:30 CC: Acute respiratory distress, exacerbation COPD HPI: This is a 66 yo obese W female who presented to [facility] w/ acute respiratory distress and exacerbation of COPD. BiPAP was initiated, but hypercapnea continued to worsen so the patient was intubated and transferred to [facility] for ventilator management. At [facility], CT angio of the lungs was attempted, but pt was too obese. Pt received one round of cetriaxone and azithromycin empirically for PNA. Also received one round of Lovenox and Bumex. UA on arrival to [facility] was suspicious for infection, so urine culture pending. Subjective/Events-last exam Pt appears to be slightly confused but she does live at home and does have help at home that may be an inpatient rehab candidate. Cardizen drip for atrial fibrillation with rapid ventricular response. Metoprolol was given today and hopefully Cardizen drip will be discontinued. Transferring to fourth floor. PT and OT ordered. Will discontinue sims catheter. Review of Systems General: Fatigue Pulmonary: Dyspnea Neurological: Confusion Objective Exam Vital Signs Vital Signs Date Time Temp Pulse Resp B/P (MAP) Pulse Ox O2 Delivery O2 Flow Rate FiO2 11/22/18 16:00 Nasal Cannula 5.00 11/22/18 16:00 133 28 130/92 (105) 11/22/18 14:41 91 11/22/18 12:00 97.0 11/22/18 10:45 40 Capillary Refill : Less Than 3 Seconds General Appearance: No Apparent Distress, WD/WN, Chronically ill, Obese HEENT: Moist Mucous Membranes, Other (ET tube and NG tube in place) Neck: Normal Inspection, Non Tender Respiratory: No Accessory Muscle Use, Decreased Breath Sounds (on Left), Expiration, Wheezing Cardiovascular: No Edema, No Gallop, No JVD, No Murmur, Normal Peripheral Pulses, Irregularly Irregular, Tachycardia Gastrointestinal: Normal Bowel Sounds, No Organomegaly, Soft Extremity: Normal Capillary Refill, Normal Inspection, No Pedal Edema Neurologic/Psychiatric: Other (sedated) Skin: Normal Color, Warm/Dry Lymphatic: No Adenopathy Results/Procedures Lab Laboratory Tests 11/22/18 03:12 Patient resulted labs reviewed. Imaging: Reviewed Imaging Films, Reviewed Imaging Report Assessment/Plan Assessment and Plan Assess & Plan/Chief Complaint Assessment: VDRF failed biPAP now extubated Presumed MANNY Pneumonia UTI AF w/RVR requiring Cardizem drip and Cardiology management Plan: Extubation monitor closely AF rate control with drip and transition to PO IRF? Critical Care Critically Ill Patient Diagnosis/Problems Diagnosis/Problems (1) Acute respiratory failure Status: Acute Qualifiers: Respiratory failure complication: unspecified whether with hypoxia or hypercapnia Qualified Codes: J96.00 - Acute respiratory failure, unspecified whether with hypoxia or hypercapnia (2) Pneumonia Status: Acute Qualifiers: Pneumonia type: due to other aerobic Gram-negative bacteria Laterality: unspecified laterality Lung location: unspecified part of lung Qualified Codes: J15.6 - Pneumonia due to other gram-negative bacteria (3) UTI (urinary tract infection) Status: Acute Qualifiers: Urinary tract infection type: acute cystitis Hematuria presence: without hematuria Qualified Codes: N30.00 - Acute cystitis without hematuria (4) Obesities, morbid Status: Chronic (5) Atrial fibrillation with rapid ventricular response Status: Acute Clinical Quality Measures DVT/VTE Risk/Contraindication: Risk Factor Score Per Nursin RFS Level Per Nursing on Admit: 4+=Very High LISA ACHARYA DO Nov 22, 2018 05:23
[2018-11-22] MEDS ORDERED: FUROSEMIDE 40 MG/4 ML INJ (LASIX) ONE (05:31)
[2018-11-22] MEDS: POTASSIUM CL 10MEQ/50ML IVPB 50 ML IV SCH (06:11)
[2018-11-22] MEDS: KCL 20 MEQ TAB (K-DUR) PO SCH (06:11)
[2018-11-22] MEDS: MAGNESIUM 1 GM/100 ML IVPB 100 ML IV SCH (06:12)
--- NOTE | 2018-11-22 07:45 | Diagnostic Imaging Report ---
EXAM: CHEST 1 VIEW, AP/PA ONLY INDICATION: Respiratory distress. COMPARISON: Chest radiograph 11/21/2018. FINDINGS: Cardiomegaly. Airspace consolidation in the lung bases, right greater than left. Small left pleural effusion. No pneumothorax. No acute osseous findings. Left PICC tip mid SVC. IMPRESSION: 1. Persistent airspace consolidation in the lung bases, right greater than left. 2. Stable small left pleural effusion. 3. Cardiomegaly. Dictated by: Dictated on workstation # [id number]
[2018-11-22] MEDS: APIXABAN 5 MG (ELIQUIS) TABLET PO SCH ×2 (08:18→22:04)
[2018-11-22] MEDS: PANTOPRAZOLE 40 MG (PROTONIX) VIAL IV SCH (08:18)
[2018-11-22] MEDS: PATIENT MAY USE OWN MED,SINGLE MED PO SCH ×2 (08:18→22:02)
[2018-11-22] MEDS: meTOprolol SUCCINATE 100 MG (TOPROL XL) TAB PO SCH (08:18)
[2018-11-22] MEDS: inSUlin DETERMIR 1 UNIT/0.01 ML (LEVEMIR) CHARGE PER UNIT SQ SCH ×2 (08:19→22:02)
--- NOTE | 2018-11-22 08:51 | Progress Note-Cardiology ---
Cardiology SOAP Progress Note Subjective: Sitting up in bed. Feels breathing is better. No c/o CP or palpitations. Objective: I&O/Vital Signs 11/22/18 11/22/18 11/22/18 11/22/18 05:00 06:00 06:43 07:00 Pulse 96 90 96 Resp 24 33 B/P (MAP) 117/89 (98) 121/84 (96) Pulse Ox 94 94 94 O2 Delivery Nasal Cannula Nasal Cannula Nasal Cannula O2 Flow Rate 5.00 5.00 5.00 11/22/18 11/22/18 11/22/18 11/22/18 07:00 08:00 08:00 08:20 Temp 97.4 Pulse 101 101 Resp 26 14 B/P (MAP) 142/97 (112) 134/91 (105) Pulse Ox 89 95 O2 Delivery Nasal Cannula Nasal Cannula Nasal Cannula O2 Flow Rate 5.00 5.00 5.00 11/22/18 11/22/18 11/22/18 11/22/18 09:00 10:00 10:35 10:35 Pulse 88 72 96 Resp 17 58 B/P (MAP) 121/86 (98) 118/39 (65) Pulse Ox 95 92 92 O2 Delivery Nasal Cannula Nasal Cannula Nasal Cannula O2 Flow Rate 5.00 5.00 5.00 FiO2 40 11/22/18 11/22/18 11/22/18 11/22/18 10:45 11:00 12:00 12:00 Temp 97.0 Pulse 92 54 122 Resp 18 25 B/P (MAP) 113/93 (100) 84/76 (79) Pulse Ox 92 O2 Delivery Nasal Cannula Nasal Cannula O2 Flow Rate 5.00 5.00 FiO2 40 11/22/18 11/22/18 11/22/18 11/22/18 12:00 13:00 13:00 14:00 Pulse 114 107 108 Resp 23 23 B/P (MAP) 133/83 (100) 99/77 (84) O2 Delivery Nasal Cannula Nasal Cannula Nasal Cannula O2 Flow Rate 5.00 5.00 5.00 11/22/18 11/22/18 11/22/18 14:41 15:00 16:00 Pulse 95 Resp 41 B/P (MAP) 128/85 (99) Pulse Ox 91 O2 Delivery Nasal Cannula Nasal Cannula Nasal Cannula O2 Flow Rate 5.00 5.00 5.00 11/22/18 00:00 Intake Total 2500 ml Output Total 5100 ml Balance -2600 ml Weight (Pounds): 264 Weight (Ounces): 0.0 Weight (Calculated Kilograms): 119.590856 Constitutional: AAO x 3 Respiratory: chest expansion is symmetric, chest is bilaterally symmetric, rhonchi (throughout), other (diminished lower lobes bilat; coarse lung sounds) Cardiovascular: irregularly irregular, S1 and S2, systolic murmur Gastrointestional: round, audible bowel sounds Extremities: no lower extremity edema bilateral Neurologic/Psychiatric: grossly intact Skin: No rash, No ulcerations Results/Procedures: Labs Laboratory Tests 11/21/18 17:27: Glucometer 147H 11/21/18 20:07: Glucometer 161H 11/22/18 00:25: Glucometer 194H 11/22/18 03:12: White Blood Count 20.2H, Red Blood Count 4.77, Hemoglobin 13.4, Hematocrit 43, Mean Corpuscular Volume 90, Mean Corpuscular Hemoglobin 28, Mean Corpuscular Hemoglobin Concent 31L, Red Cell Distribution Width 15.6H, Platelet Count 337, Mean Platelet Volume 9.7, Neutrophils (%) (Auto) 91H, Lymphocytes (%) (Auto) 4L , Monocytes (%) (Auto) 4, Eosinophils (%) (Auto) 0, Basophils (%) (Auto) 1, Neutrophils # (Auto) 18.4H, Lymphocytes # (Auto) 0.8L, Monocytes # (Auto) 0.9, Eosinophils # (Auto) 0.0, Basophils # (Auto) 0.1, Neutrophils % (Manual) 90, Lymphocytes % (Manual) 5, Monocytes % (Manual) 5, Sodium Level 141, Potassium Level 4.0, Chloride Level 95L, Carbon Dioxide Level 31, Anion Gap 15H, Blood Urea Nitrogen 11, Creatinine 0.65, Estimat Glomerular Filtration Rate > 60, BUN/ Creatinine Ratio 17, Glucose Level 163H, Calcium Level 9.4, Phosphorus Level 2.3 , Magnesium Level 2.4 11/22/18 06:13: Glucometer 144H 11/22/18 11:46: Glucometer 223H 11/22/18 12:30: B-Type Natriuretic Peptide 355.3H Microbiology 11/19/18 Blood Culture - Preliminary, Resulted No growth 2/17/19 MRSA Screen - Final, Complete 11/19/18 Urine Culture - Preliminary, Resulted Escherichia coli See Comments Laboratory Tests 11/21/18 01:30 11/21/18 03:15 11/22/18 03:12 Procedures NAME: [facility] REC#: [id number] PT STATUS: ADM IN : 1950 PHYSICIAN: ROBERTO VAUGHN DO ADMIT DATE: 11/18/18/ICU Draft Date of Exam:11/22/18 CHEST 1 VIEW, AP/PA ONLY EXAM: CHEST 1 VIEW, AP/PA ONLY INDICATION: Respiratory distress. COMPARISON: Chest radiograph 11/21/2017. FINDINGS: Cardiomegaly. Airspace consolidation in the lung bases, right greater than left. Small left pleural effusion. No pneumothorax. No acute osseous findings. Left PICC tip mid SVC. IMPRESSION: 1. Persistent airspace consolidation in the lung bases, right greater than left. 2. Stable small left pleural effusion. 3. Cardiomegaly. Dictated on workstation # [id number] Dict: 11/22/18 0737 Trans: 11/22/18 0745 [facility] [phone] Interpreted by: SANTANA NUNEZ MD Electronically signed by: A/P: Assessment: Acute on chronic respiratory failure requiring intubation - now extubated - management per medical/pulmonary services Pneumonia - management per medical/pulmonary services Acute on chronic exacerbation of COPD Elevated troponin likely d/t hypoxia (Type 2 VA) Echo of 11/20/18: LVEF 50-55%, no RWMA, mild dilatation of LA Electrolyte abnormalities, improved after treatment A-fib - rate improved, but not ideal UTI - management per medical services Obesity with obesity hypoventilation syndrome DM 2 Liver enzyme elevation HLD - statin tx Plan: Extubated Awaiting records from [facility] - primary fusing line inspector is Dr. Lorenzana Management of pneumonia as per pulmonary/medical services UTI - management per medical services HR improved - start Diltiazem (which she was on low dose at home) Restart statin Physician Assessment Physician Assessment No cp. Shortness of breath present but improved. No palp or syncope Lungs: good bilat air entry, diminished at the bases Cor: irreg Ext: no c/c. 1-2 + edema of the legs A&R * As documented in our note above that I updated (italics) and as noted below * Oral dilt for vent rate control. Continue oral bb * Started on Eliquis for stroke prophylaxis yesterday * Monitor labs NIKOLAI [facility]EV[facility]SON [facility] Nov 22, 2018 08:51 BEV CANTU MD FACP FAC CCDS Nov 22, 2018 16:47
[2018-11-22] MEDS ORDERED: DILTIAZEM 240 MG (CARDIZEM CD) CAP PO NR (09:00)
[2018-11-22] MEDS: DILTIAZEM 240 MG (CARDIZEM CD) CAP PO SCH (09:40)
[2018-11-22] MEDS ORDERED: KCL 10 MEQ TAB (MICRO K) PO NR (10:15)
[2018-11-22] MEDS ORDERED: FUROSEMIDE 40 MG/4 ML INJ (LASIX) IVP NR (10:15)
[2018-11-22] MEDS: MEROPENEM 500 MG/SWFI 10 ML IV PUSH IV SCH ×6 (11:51→22:31)
--- NOTE | 2018-11-22 13:28 | Occupational Therapy Eval ---
OT Evaluation-General/PLF Medical Diagnosis Admission Date Nov 18, 2018 at 20:03 Medical Diagnosis: Acute Respiratory Failure Onset Date: Nov 18, 2018 Therapy Diagnosis Therapy Diagnosis: Weakness Height/Weight Height (Feet): 5 Height (Inches): 4.00 Weight (Pounds): 264 Weight (Ounces): 0.0 Precautions Precautions/Isolations: Contact Isolation, Fall Prevention, Standard Precautions Safety Interventions: None Weight Bear Status Weight Bearing Restriction: Weight Bearing/Tolerated Referral Physician: Flaca Referral Reason: Activity Tolerance, Self Care, Evaluation/Treatment, Strengthening/ROM Medical History Pertinent Medical History: HTN Current History Pt. has been on ventilator, but extubated yesterday. Came to hospital in acute respiratory failure/hypoxia. Reviewed History: Yes Social History Home: Single Level Current Living Status: Alone Entry Into Home: Level Entry ADL-Prior Level of Function Therapy Code Descriptions/Definitions Functional [place] Measure: 0=Not Assessed/NA 4=Minimal Assistance 1=Total Assistance 5=Supervision or Setup 2=Maximal Assistance 6=Modified [place] 3=Moderate Assistance 7=Complete [place] Therapy Quality Codes: 6 Independent with activity with or without an assistive device 5 Patient requires set up or clean up by helper. Patient completes activity by themselves 4 Supervision or touching assist (CGA). [place] provide cues , steadying assist 3 The helper provides less than half the effort to complete the activity 2 The helper provides more than half the effort to complete the activity 1 Dependent. The helper does all the effort to complete an activity 7 Patient refused to complete or attempt activity 9 The patient did not perform the activity before the current illness or injury 88 Not attempted due to Medical conditions or safety concerns Functional Abilities and Goals: Independent: Patient completed the activities by him/herself, with or without an assistive device, with no assistance from a helper. Needed Some Help: Patient needed partial assistance from another person to complete activities. Dependent: A helper completed the activities for the patient. Unknown: Not Applicable: ADL PLOF Comments Pt. states that she lives in an apartment in [place]. States that she uses a power chair in her apartment, but can transfer into the tub and onto the toilet from the chair. Pt. states that she has a caregiver that assists her with shopping, cooking, cleaning. Unable to state how much the caregiver is at her apartment. Self Care: Unknown Functional Cognition: Unknown DME/Equipment: Bath Chair, Tub/Shower DME/Equipment Comments Power chair. Drive Self: No OT Current Status Subjective Pt. does not report pain. Does request to get back to bed. Appearance Pt. up in reclining chair. Nursing okays for this therapist to work with pt. Mental Status/Objective Patient Orientation: Person Attachments: Li Catheter, IV, Oxygen, Telemetry ADL-Treatment Therapy Code Descriptions/Definitions Functional [place] Measure: 0=Not Assessed/NA 4=Minimal Assistance 1=Total Assistance 5=Supervision or Setup 2=Maximal Assistance 6=Modified [place] 3=Moderate Assistance 7=Complete [place] Therapy Quality Codes: 6 Independent with activity with or without an assistive device 5 Patient requires set up or clean up by helper. Patient completes activity by themselves 4 Supervision or touching assist (CGA). [place] provide cues , steadying assist 3 The helper provides less than half the effort to complete the activity 2 The helper provides more than half the effort to complete the activity 1 Dependent. The helper does all the effort to complete an activity 7 Patient refused to complete or attempt activity 9 The patient did not perform the activity before the current illness or injury 88 Not attempted due to Medical conditions or safety concerns Lower Body Dressing (FIM): 2 Transfers (B, C, W/C) (FIM): 3 (Pt. is able to stand from chair with min assist. Pt. is unsure of herself, but with encouragement, transfers to side of bed with min assist. Once seated, pt. is able to transfer sit-supine with mod assistance overall.) Other Treatments Pt. demonstrates fatigue with movement but overall does well. All needs are met for pt. once she is in bed. Education OT Patient Education: Correct positioning, Progress toward Goal/Update tx plan , Purpose of tx/functional activities, Reviewed precautions, Rehab process, Transfer techniques Teaching Recipient: Patient Teaching Methods: Demonstration, Discussion Response to Teaching: Verbalize Understanding, Return Demonstration OT Short Term Goals Short Term Goals Time Frame: Nov 29, 2018 Eating(FIM): 5 Grooming(FIM): 5 Bathing(FIM): 3 Upper Body Dressing(FIM): 4 Lower Body Dressing(FIM): 3 Toileting(FIM): 4 Transfers (B,C,W/C) (FIM): 4 Toilet/Commode Transfer(FIM): 4 Additional Short Term Goals: 1-Demonstrate ADL Tasks, 2-Verbalize Understanding , 3-ImproveStrength/Darrell 1=Demonstrate adherence to instructed precautions during ADL tasks. 2=Patient will verbalize/demonstrate understanding of assistive devices/ modifications for ADL. 3=Patient will improve strength/tolerance for activity to enable patient to perform ADL's. OT Mcfp Goals Oyster Planter Goals Time Frame: Dec 13, 2018 Eating (FIM): 6 Grooming(FIM): 5 Bathing(FIM): 5 Upper Body Dressing(FIM): 5 Lower Body Dressing(FIM): 5 Toileting(FIM): 6 Transfers (B,C,W/C) (FIM): 6 Toilet/Commode Transfer(FIM): 6 Shower Transfer(FIM): 5 Additional Goals: 1-Demonstrate ADL Tasks, 2-Verbalize Understanding, 3- ImproveStrength/Darrell 1=Demonstrate adherence to instructed precautions during ADL tasks. 2=Patient will verbalize/demonstrate understanding of assistive devices/ modifications for ADL. 3=Patient will improve strength/tolerance for activity to enable patient to perform ADL's. OT Education/Plan Problem List/Assessment Assessment: Decreased Activ Tolerance, Dependent Transfers, Impaired Bed Mobility, Impaired Funct Balance, Impaired I ADL's, Impaired Self-Care Skills Discharge Recommendations Plan/Recommendations: Continue POC Treatment Plan/Plan of Care Treatment,Training & Education: Yes Patient would benefit from OT for education, treatment and training to promote independence in ADL's, mobility, safety and/or upper extremity function for ADL' s. Plan of Care: ADL Retraining, Functional Mobility, UE Funct Exercise/Act Treatment Duration: Dec 13, 2018 Frequency: 5 times per week Estimated Hrs Per Day: .5 hour per day Agreement: Yes Rehab Potential: Good Time/GCodes Start Time: 11:00 Stop Time: 11:30 Total Time Billed (hr/min): 30 Billed Treatment Time 1, EVH x 15minutes, FA x 15minutes SNOW MENDOZA OT Nov 22, 2018 13:28
--- NOTE | 2018-11-22 14:53 | Physical Therapy Daily Note ---
PT Daily Note-Current Subjective Pt in bed and agrees to PT. Requests to use commode. Mental Status Patient Orientation: Person Attachments: Oxygen, Li Catheter, IV Transfers Therapy Code Descriptions/Definitions Functional [place] Measure: 0=Not Assessed/NA 4=Minimal Assistance 1=Total Assistance 5=Supervision or Setup 2=Maximal Assistance 6=Modified [place] 3=Moderate Assistance 7=Complete [place] Therapy Quality Codes: 6 Independent with activity with or without an assistive device 5 Patient requires set up or clean up by helper. Patient completes activity by themselves 4 Supervision or touching assist (CGA). [place] provide cues , steadying assist 3 The helper provides less than half the effort to complete the activity 2 The helper provides more than half the effort to complete the activity 1 Dependent. The helper does all the effort to complete an activity 7 Patient refused to complete or attempt activity 9 The patient did not perform the activity before the current illness or injury 88 Not attempted due to Medical conditions or safety concerns Transfers (B, C, W/C) (FIM): 4 Scootin Supine to/from Sit: 5 Sit to/from Stand: 4 Weight Bearing Right Lower Extremity: Right Weight Bearing/Tolerated Left Lower Extremity: Left Weight Bearing/Tolerated Gait Training Gait (FIM): 1 Distance (FIM): 1=up to 49 ft Distance: 5' Gait Level of Assist: 4 Gait Persons Needed: 1 Gait Assistive Device: FWW Assessment Current Status: Fair Progress Pt is able to perform bed mobility SBA. Pt is min A to FWW and does not comply with VC of hand placement for safety. Pt able to side step with FWW to commode. Pt was not able to have a bowel movement. Pt amb back to EOB with FWW and CGA. Dr. Hassan saw pt while EOB and reports she has A-fib. Pt reports she has had it chronically. Pt also reports she uses power w/c at home. Pt HR ranged from 174-113 during tx. Pt is now in bed with all needs met. PT Short Term Goals Short Term Goals Time Frame: Nov 28, 2018 Transfers (B,C,W/C) (FIM): 4 Gait (FIM): 1 Distance (FIM): 1=up to 49 ft Gait Distance Comment: 25' Gait Level of Assist: 4 Gait Assistive Device: FWW PT Plan Problem List Problem List: Activity Tolerance, Functional Strength, Safety, Balance, Gait, Transfer, Bed Mobility, ROM Treatment/Plan Treatment Plan: Continue Plan of Care Treatment Plan: Bed Mobility, Concurrent Therapy, Education, Functional Activity Darrell, Functional Strength, Gait, Safety, Therapeutic Exercise, Transfers Treatment Duration: Nov 28, 2018 Frequency: 6 times per week Estimated Hrs Per Day: .25 hour per day (15-30') Patient and/or Family Agrees t: Yes Time/GCodes Time In: 1308 Time Out: 1320 Total Billed Treatment Time: 12 Total Billed Treatment 1 visit FA 12 min KRISSY RAINEY PT Nov 22, 2018 14:53
--- NOTE | 2018-11-22 17:00 | NUR ---
Patient received from ICU. Report received from ORLY Mckinley. Agree with previous assessments.
[2018-11-22] MEDS: ACETAMINOPHEN 500 MG TAB (TYLENOL) NG PRN (20:06)
[2018-11-22] MEDS ORDERED: ROSUVASTATIN 5 MG (CRESTOR) TABLET PO SCH (21:00)
[2018-11-22] MEDS ORDERED: MEROPENEM 500 MG VIAL (MERREM) IV ONE (22:20)
[2018-11-22] MEDS ORDERED: WATER (STERILE) FOR INJECTION 10 ML ONE (22:20)
[2018-11-23] VITALS: BP 111/72
[2018-11-23] MEDS: inSUlin ASPART (NovoLOG) 1 UNIT/0.01 ML (CHARGE PER UNIT) SC SCH ×3 (00:22→12:18)
[2018-11-23] MEDS: RT-ALBUTEROL/IPRATROPIUM 3 ML (DUONEB) VIAL INH SCH ×2 (03:31→07:14)
[2018-11-23] MEDS ORDERED: MEROPENEM 500 MG VIAL (MERREM) IV ONE (04:48)
[2018-11-23] MEDS ORDERED: WATER (STERILE) FOR INJECTION 10 ML ONE (04:49)
[2018-11-23] MEDS: MEROPENEM 500 MG/SWFI 10 ML IV PUSH IV SCH ×4 (05:06→13:02)
[2018-11-23 05:47] LABS: BASOPHILS # (AUTO) 0.1 10^3/uL (0.0-0.1); BASOPHILS % (AUTO) 1 % (0-10); EOSINOPHILS % (AUTO) 0 % (0-10); HEMATOCRIT 47 % (35-52); HEMOGLOBIN 14.2 G/DL (11.5-16.0); LYMPHOCYTES # (AUTO) 0.8 X 10^3 (1.0-4.0); LYMPHOCYTES % (AUTO) 4 % (12-44); MEAN CORPUSCULAR HEMOGLOBIN 27 PG (25-34); MEAN CORPUSCULAR HGB CONC 30 G/DL (32-36); MEAN CORPUSCULAR VOLUME 90 FL (80-99); MEAN PLATELET VOLUME 9.9 FL (7.4-10.4); MONOCYTES # (AUTO) 0.6 X 10^3 (0.0-1.0); MONOCYTES % (AUTO) 3 % (0-12); NEUTROPHILS # (AUTO) 17.2 X 10^3 (1.8-7.8); NEUTROPHILS % (AUTO) 92 % (42-75); PLATELET COUNT 291 10^3/uL (130-400); RED CELL DISTRIBUTION WIDTH 15.8 % (10.0-14.5); WHITE BLOOD COUNT 18.6 10^3/uL (4.3-11.0)
[2018-11-23] MEDS: KCL 20 MEQ TAB (K-DUR) PO SCH (05:55)
[2018-11-23] MEDS: POTASSIUM CL 10MEQ/50ML IVPB 50 ML IV SCH (05:55)
[2018-11-23] MEDS: MAGNESIUM 1 GM/100 ML IVPB 100 ML IV SCH (05:55)
[2018-11-23 06:04] LABS: BUN/CREATININE RATIO 31; CALCIUM 9.5 MG/DL (8.5-10.1); CARBON DIOXIDE 36 MMOL/L (21-32); CHLORIDE 89 MMOL/L (98-107); CREATININE SERUM 0.75 MG/DL (0.60-1.30); GFR ESTIMATED > 60; GLUCOSE 254 MG/DL (70-105); MAGNESIUM 2.2 MG/DL (1.8-2.4); PHOSPHORUS 4.3 MG/DL (2.3-4.7); POTASSIUM 4.4 MMOL/L (3.6-5.0); SODIUM 138 MMOL/L (135-145)
--- NOTE | 2018-11-23 07:06 | Pulmonary Progress Note ---
Sepsis Event Evaluation Height, Weight, BMI Height: 5'4.00" Weight: 256lbs. 1.0oz. 116.289806gs; 46.3 BMI Method: Exam Exam Vital Signs Date Time Temp Pulse Resp B/P (MAP) Pulse Ox O2 Delivery O2 Flow Rate FiO2 11/23/18 02:58 92 Nasal Cannula 5.00 11/23/18 00:00 98.2 75 18 111/72 (85) 92 Nasal Cannula 5.00 11/22/18 22:40 92 Nasal Cannula 5.00 11/22/18 20:00 Nasal Cannula 5.00 11/22/18 19:10 92 Nasal Cannula 5.00 11/22/18 16:00 Nasal Cannula 5.00 11/22/18 16:00 133 28 130/92 (105) Nasal Cannula 5.00 11/22/18 15:00 95 41 128/85 (99) Nasal Cannula 5.00 11/22/18 14:41 91 Nasal Cannula 5.00 11/22/18 14:00 108 23 99/77 (84) Nasal Cannula 5.00 11/22/18 13:00 107 23 133/83 (100) Nasal Cannula 5.00 11/22/18 13:00 114 11/22/18 12:00 Nasal Cannula 5.00 11/22/18 12:00 97.0 11/22/18 12:00 122 25 84/76 (79) Nasal Cannula 5.00 11/22/18 11:00 54 18 113/93 (100) Nasal Cannula 5.00 11/22/18 10:45 92 92 40 11/22/18 10:35 92 Nasal Cannula 5.00 11/22/18 10:35 96 92 40 11/22/18 10:00 72 58 118/39 (65) Nasal Cannula 5.00 11/22/18 09:00 88 17 121/86 (98) 95 Nasal Cannula 5.00 11/22/18 08:20 97.4 11/22/18 08:00 101 14 134/91 (105) 95 Nasal Cannula 5.00 11/22/18 08:00 Nasal Cannula 5.00 I & O 11/23/18 07:00 Intake Total 1960 ml Output Total 2100 ml Balance -140 ml Height & Weight Height: 5'4.00" Weight: 256lbs. 1.0oz. 116.607163dw; 46.3 BMI Method: General Appearance: No Apparent Distress, WD/WN, Chronically ill, Obese HEENT: Moist Mucous Membranes, Other (ET tube and NG tube in place) Neck: Normal Inspection, Non Tender Respiratory: No Accessory Muscle Use, Decreased Breath Sounds (on Left), Expiration, Wheezing Cardiovascular: No Edema, No Gallop, No JVD, No Murmur, Normal Peripheral Pulses, Irregularly Irregular, Tachycardia Capillary Refill: Less Than 3 Seconds Extremity: Normal Capillary Refill, Normal Inspection, No Pedal Edema Neurologic/Psychiatric: Other (sedated) Skin: Normal Color, Warm/Dry Lymphatic: No Adenopathy Results Lab Laboratory Tests 11/22/18 03:12 11/23/18 05:40 Assessment/Plan Assessment/Plan Acute on chronic respiratory failure -Use noninvasive ventilation at night -Pt would benefit from vent to mask and is currently high risk for multiple recurrent hospitalizations -Will try to get pt approved for vent to mask -solumedrol to 40 Q 12 Afib -Cardiology following -Eliquis Pneumonia -sputum is Moraxella- -PT has multiple allergies -Merrem -MRSA nasal swab is positive. Pt is not on vanco however pt has been afebrile since admission. No leukocytosis UTI with resistent Ecoli -Continue MErrem NSTEMI -Echo EF 50-55% -Cardiology consulted Morbid obesity with OHS - ROBERTO VAUGHN DO Nov 23, 2018 07:06
--- NOTE | 2018-11-23 07:42 | Diagnostic Imaging Report ---
INDICATION: Respiratory distress. Portable chest 4:02 AM FINDINGS: Left upper extremity PICC line tip projects over the SVC. There is cardiomegaly with pulmonary vascular congestion. There is some infiltrate at the right medial lung base. IMPRESSION: Pulmonary venous hypertension. There is infiltrate right medial lung base appear stable compared to previous day. Dictated by: Dictated on workstation # [id number]
[2018-11-23 08:00] VITALS: BP 149/65
[2018-11-23] MEDS: DILTIAZEM 240 MG (CARDIZEM CD) CAP PO SCH (08:05)
[2018-11-23] MEDS: methylPREDNISolone 40 MG/ML (Solu-MEDROL) VIAL IV SCH (08:06)
[2018-11-23] MEDS: PANTOPRAZOLE 40 MG (PROTONIX) VIAL IV SCH (08:06)
[2018-11-23] MEDS: APIXABAN 5 MG (ELIQUIS) TABLET PO SCH (08:06)
[2018-11-23] MEDS: meTOprolol SUCCINATE 100 MG (TOPROL XL) TAB PO SCH (08:06)
[2018-11-23] MEDS: inSUlin DETERMIR 1 UNIT/0.01 ML (LEVEMIR) CHARGE PER UNIT SQ SCH (08:06)
[2018-11-23] MEDS: PATIENT MAY USE OWN MED,SINGLE MED PO SCH (09:00)
[2018-11-23] MEDS ORDERED: PRED10TA22 PO (10:15)
[2018-11-23] MEDS ORDERED: IPRA3AMP31 INH (10:15)
[2018-11-23] MEDS ORDERED: APIX5TAB PO (10:15)
[2018-11-23] MEDS ORDERED: MERO500V3 IV (10:15)
[2018-11-23] MEDS ORDERED: METO-395 PO (10:15)
--- NOTE | 2018-11-23 10:21 | Occupational Ther Daily Note ---
OT Current Status-Daily Note Subjective Pt alert and willing to participate with OT services upon therapist arrival. No reports of pain, however pt complaining of significant weakness. Mental Status/Objective Patient Orientation: Person, Place, Time, Situation Therapy Code Descriptions/Definitions Functional [place] Measure: 0=Not Assessed/NA 4=Minimal Assistance 1=Total Assistance 5=Supervision or Setup 2=Maximal Assistance 6=Modified [place] 3=Moderate Assistance 7=Complete [place] ADL-Treatment Grooming (FIM): 5 Transfers (B, C, W/C) (FIM): 4 (Pt peformed sit to stand transfer, and stand pivot transfer with Linh and verbal cues for proper positioning and hand/ footment placement. ) Other Treatment Pt participated in gentle AROM through BUE's through gross planes of motion, in order to improve/maintain pt's joint ROM and to improve her muscle endurance. Pt complained of muscle fatigue and required multiple rest breaks throughout duration of UE ther ex. Education OT Patient Education: Correct positioning, Energy conservation, Transfer techniques Teaching Recipient: Patient Teaching Methods: Discussion Response to Teaching: Verbalize Understanding, Return Demonstration OT Short Term Goals Short Term Goals Time Frame: Nov 29, 2018 Eating(FIM): 5 Grooming(FIM): 5 Bathing(FIM): 3 Upper Body Dressing(FIM): 4 Lower Body Dressing(FIM): 3 Toileting(FIM): 4 Transfers (B,C,W/C) (FIM): 4 Toilet/Commode Transfer(FIM): 4 Additional Short Term Goals: 1-Demonstrate ADL Tasks, 2-Verbalize Understanding , 3-ImproveStrength/Darrell 1=Demonstrate adherence to instructed precautions during ADL tasks. 2=Patient will verbalize/demonstrate understanding of assistive devices/ modifications for ADL. 3=Patient will improve strength/tolerance for activity to enable patient to perform ADL's. OT Prison Goals Route Sales Associate Goals Time Frame: Dec 13, 2018 Eating (FIM): 6 Grooming(FIM): 5 Bathing(FIM): 5 Upper Body Dressing(FIM): 5 Lower Body Dressing(FIM): 5 Toileting(FIM): 6 Transfers (B,C,W/C) (FIM): 6 Toilet/Commode Transfer(FIM): 6 Shower Transfer(FIM): 5 Additional Goals: 1-Demonstrate ADL Tasks, 2-Verbalize Understanding, 3- ImproveStrength/Darrell 1=Demonstrate adherence to instructed precautions during ADL tasks. 2=Patient will verbalize/demonstrate understanding of assistive devices/ modifications for ADL. 3=Patient will improve strength/tolerance for activity to enable patient to perform ADL's. OT Education/Plan Discharge Recommendations Plan/Recommendations: Continue POC Treatment Plan/Plan of Care Patient would benefit from OT for education, treatment and training to promote independence in ADL's, mobility, safety and/or upper extremity function for ADL' s. Plan of Care: ADL Retraining, Functional Mobility, UE Funct Exercise/Act Treatment Duration: Dec 13, 2018 Frequency: 5 times per week Estimated Hrs Per Day: .5 hour per day Agreement: Yes Rehab Potential: Good Time/GCodes Start Time: 09:40 Stop Time: 10:20 Total Time Billed (hr/min): 40 Billed Treatment Time 1, ADL1, FA1, TE1 MALCOM MICHELLE OT Nov 23, 2018 10:21
[2018-11-23] MEDS ORDERED: RT-ALBUTEROL SULF 2.5 MG/3 ML PRE-MIX VIAL INH PRN (10:30)
--- NOTE | 2018-11-23 10:33 | NUR ---
CM DISCHARGE PLANNING: Cinical information faxed to [facility] for review to assess if they can accept the patient to their swing bed program for continuation of IV abx need et continued Physical et Occupational therapies to return to prior level of function. Awaiting acceptance/denial.
--- NOTE | 2018-11-23 11:03 | Discharge Summary-Hospitalist ---
Diagnosis/Chief Complaint Date of Admission Nov 18, 2018 at 20:03 Date of Discharge Discharge Date: Nov 23, 2018 Admission Diagnosis Assessment: VDRF failed biPAP Presumed MANNY Pneumonia UTI Plan: Intubation monitor closely Discharge Diagnosis (1) ESBL (extended spectrum beta-lactamase) producing bacteria infection Status: Acute (2) Acute respiratory failure Status: Resolved (3) Pneumonia Status: Acute (4) UTI (urinary tract infection) Status: Acute (5) Obesities, morbid Status: Chronic (6) Atrial fibrillation with rapid ventricular response Status: Acute (7) Wheezing Status: Chronic (8) Dementia Status: Chronic Discharge Summary Discharge Physical Exam Allergies: Coded Allergies: clarithromycin (Verified Allergy, Unknown, 11/18/18) moxifloxacin (Verified Allergy, Unknown, 11/18/18) nitrofurantoin (Verified Allergy, Unknown, 11/18/18) penicillin G (Verified Allergy, Unknown, Pt has received Omnicef & cephalexin in the past, 11/19/18) Pt has received Omnicef & cephalexin in the past (from External med history) sulfacetamide (Verified Allergy, Unknown, 11/18/18) trazodone (Verified Allergy, Unknown, 11/18/18) Vitals & I&Os Vital Signs Date Time Temp Pulse Resp B/P (MAP) Pulse Ox O2 Delivery O2 Flow Rate FiO2 11/23/18 08:00 97.2 71 18 149/65 (93) 97 Nasal Cannula 5.00 11/22/18 10:45 40 General Appearance: No Apparent Distress, WD/WN, Chronically ill, Obese HEENT: Moist Mucous Membranes, Other (ET tube and NG tube in place) Respiratory: No Accessory Muscle Use, Decreased Breath Sounds (on Left), Expiration, Wheezing Cardiovascular: No Edema, No Gallop, No JVD, No Murmur, Normal Peripheral Pulses, Irregularly Irregular, Tachycardia Gastrointestinal: Normal Bowel Sounds, No Organomegaly, Soft Extremity: Normal Capillary Refill, Normal Inspection, No Pedal Edema Skin: Normal Color, Warm/Dry Neurologic/Psychiatric: Alert, Oriented x3 (poor recall), Other (sedated) Hospital Course Was the Problem List Reviewed?: Yes Hospital course: Patient had an uncomplicated hospital course after she was moved from [facility] to [facility] intubated for respiratory failure. Patient maintain on oxygen at home. Patient was able to be extubated after 3 days and antibiotics were empirically maintained for pneumonia but urine culture showed ESBL so changed to Meropenem and needed 6 more days. Wheezing continued of which she has chronic wheezing. She was deemed stable for discharge to [facility] at [facility] and will be monitor closely. Labs (last 24 hrs) Laboratory Tests 11/22/18 11:46: Glucometer 223H 11/22/18 12:30: B-Type Natriuretic Peptide 355.3H 11/22/18 18:29: Glucometer 143H 11/22/18 19:02: Triglycerides Level 249H 11/22/18 21:33: Glucometer 178H 11/22/18 22:50: Triglycerides Level 241H 11/23/18 00:09: Glucometer 170H 11/23/18 05:39: Glucometer 231H 11/23/18 05:40: White Blood Count 18.6H, Red Blood Count 5.19, Hemoglobin 14.2, Hematocrit 47, Mean Corpuscular Volume 90, Mean Corpuscular Hemoglobin 27, Mean Corpuscular Hemoglobin Concent 30L, Red Cell Distribution Width 15.8H, Platelet Count 291, Mean Platelet Volume 9.9, Neutrophils (%) (Auto) 92H, Lymphocytes (%) (Auto) 4L , Monocytes (%) (Auto) 3, Eosinophils (%) (Auto) 0, Basophils (%) (Auto) 1, Neutrophils # (Auto) 17.2H, Lymphocytes # (Auto) 0.8L, Monocytes # (Auto) 0.6, Eosinophils # (Auto) 0.0, Basophils # (Auto) 0.1, Sodium Level 138, Potassium Level 4.4, Chloride Level 89L, Carbon Dioxide Level 36H, Anion Gap 13, Blood Urea Nitrogen 23H, Creatinine 0.75, Estimat Glomerular Filtration Rate > 60, BUN /Creatinine Ratio 31, Glucose Level 254H, Calcium Level 9.5, Phosphorus Level 4.3, Magnesium Level 2.2 Microbiology 11/19/18 Blood Culture - Preliminary, Resulted No growth 11/18/18 MRSA Screen - Final, Complete 11/19/18 Urine Culture - Preliminary, Resulted Escherichia coli See Comments Patient resulted labs reviewed. Pending Labs Laboratory Tests 11/23/18 05:39: Glucometer 231 11/23/18 05:40: White Blood Count 18.6, Red Blood Count 5.19, Hemoglobin 14.2, Hematocrit 47, Mean Corpuscular Volume 90, Mean Corpuscular Hemoglobin 27, Mean Corpuscular Hemoglobin Concent 30, Red Cell Distribution Width 15.8, Platelet Count 291, Mean Platelet Volume 9.9, Neutrophils (%) (Auto) 92, Lymphocytes (%) (Auto) 4, Monocytes (%) (Auto) 3, Eosinophils (%) (Auto) 0, Basophils (%) (Auto) 1, Neutrophils # (Auto) 17.2, Lymphocytes # (Auto) 0.8, Monocytes # (Auto) 0.6, Eosinophils # (Auto) 0.0, Basophils # (Auto) 0.1, Sodium Level 138, Potassium Level 4.4, Chloride Level 89, Carbon Dioxide Level 36, Anion Gap 13, Blood Urea Nitrogen 23, Creatinine 0.75, Estimat Glomerular Filtration Rate > 60, BUN/ Creatinine Ratio 31, Glucose Level 254, Calcium Level 9.5, Phosphorus Level 4.3 , Magnesium Level 2.2 Imaging: Reviewed Imaging Films, Reviewed Imaging Report Discussion & Recommendations Discharge Planning: <30 minutes discharge planning Discharge Home Medications: Active Scripts Active Meropenem 500 Mg Vial 500 Mg IV Q6H 6 Days Prednisone 10 Mg Tab.ds.pk 10 Mg PO DAILY Take 6 tabs(60mg)daily,decrease by 1 tab(10MG)daily. Metoprolol Succinate 100 Mg Tab.er.24h 100 Mg PO DAILY 365 Days Eliquis (Apixaban) 5 Mg Tablet 5 Mg PO BID 365 Days Iprat-Albut 0.5-3(2.5) mg/3 ml (Ipratropium/Albuterol Sulfate) 3 Ml Ampul.neb 3 Ml INH RTQ4HR 14 Days Reported Mucinex (Guaifenesin) 600 Mg Tab.er.12h 600 Mg PO BID Albuterol Sulfate 2.5 Mg/3 Ml Vial.neb 2.5 Mg NEB QID Bevespi Aerosphere Inhaler (Glycopyrrolate/Formoterol Fum) 10.7 Gm Hfa.aer.ad 2 Puff INH BID Diltiazem 24Hr ER (Diltiazem HCl) 120 Mg Cap.er.24h 120 Mg PO DAILY Fluticasone Propionate 16 Gm Watrous.susp 1 Watrous NS DAILY Metformin HCl 500 Mg Tablet 500 Mg PO BID [id number] (Polyethylene Glycol 3350) 238 Gm Powder 17 Gm PO DAILY Rosuvastatin Calcium 5 Mg Tablet 5 Mg PO HS Ventolin Hfa (Albuterol Sulfate) 18 Gm Hfa.aer.ad 2 Puff INH QID PRN Vesicare (Solifenacin Succinate) 10 Mg Tablet 10 Mg PO DAILY Aspirin 325 Mg Tablet 325 Mg PO DAILY Midodrine HCl 5 Mg Tablet 5 Mg PO QID Acetazolamide 250 Mg Tablet 250 Mg PO BID Isosorbide Mononitrate ER (Isosorbide Mononitrate) 60 Mg Tab 60 Mg PO DAILY Losartan Potassium 50 Mg Tablet 50 Mg PO DAILY Levothyroxine Sodium 25 Mcg Tablet 25 Mcg PO DAILY Omeprazole 40 Mg Capsule.dr 40 Mg PO DAILY Venlafaxine HCl ER (Venlafaxine HCl) 150 Mg Cap.er.24h 150 Mg PO DAILY Januvia (Sitagliptin Phosphate) 100 Mg Tablet 100 Mg PO DAILY Clonazepam 0.5 Mg Tablet 0.5 Mg PO BID Potassium Chloride 10 Meq Tablet.er 10 Meq PO DAILY Aripiprazole 15 Mg Tablet 15 Mg PO DAILY Zafirlukast 20 Mg Tablet 20 Mg PO BID Lamotrigine 25 Mg Tablet 25 Mg PO BID Instructions to patient/family Please see electronic discharge instructions given to patient. Clinical Quality Measures DVT/VTE Risk/Contraindication: Risk Factor Score Per Nursin RFS Level Per Nursing on Admit: 4+=Very High Problem Qualifiers (1) Acute respiratory failure: Respiratory failure complication: unspecified whether with hypoxia or hypercapnia Qualified Codes: J96.00 - Acute respiratory failure, unspecified whether with hypoxia or hypercapnia (2) Pneumonia: Pneumonia type: due to other aerobic Gram-negative bacteria Laterality: unspecified laterality Lung location: unspecified part of lung Qualified Codes: J15.6 - Pneumonia due to other gram-negative bacteria (3) UTI (urinary tract infection): Urinary tract infection type: acute cystitis Hematuria presence: without hematuria Qualified Codes: N30.00 - Acute cystitis without hematuria (4) Dementia: Dementia type: Alzheimer's disease Alzheimer's disease onset: unspecified onset Dementia behavioral disturbance: without behavioral disturbance Qualified Codes: G30.9 - Alzheimer's disease, unspecified; F02.80 - Dementia in other diseases classified elsewhere without behavioral disturbance LISA ACHARYA DO Nov 23, 2018 11:03
[2018-11-23] MEDS ORDERED: POLYETHYLENE GLYCOL 17 GM (MIRALAX) PACK PO SCH (11:08)
--- NOTE | 2018-11-23 11:08 | Physical Therapy Daily Note ---
PT Daily Note-Current Subjective Pt is in recliner and agrees to PT. Mental Status Patient Orientation: Person, Place Attachments: Oxygen (5L) Transfers Therapy Code Descriptions/Definitions Functional [place] Measure: 0=Not Assessed/NA 4=Minimal Assistance 1=Total Assistance 5=Supervision or Setup 2=Maximal Assistance 6=Modified [place] 3=Moderate Assistance 7=Complete [place] Therapy Quality Codes: 6 Independent with activity with or without an assistive device 5 Patient requires set up or clean up by helper. Patient completes activity by themselves 4 Supervision or touching assist (CGA). Brandon provide cues , steadying assist 3 The helper provides less than half the effort to complete the activity 2 The helper provides more than half the effort to complete the activity 1 Dependent. The helper does all the effort to complete an activity 7 Patient refused to complete or attempt activity 9 The patient did not perform the activity before the current illness or injury 88 Not attempted due to Medical conditions or safety concerns Transfers (B, C, W/C) (FIM): 4 Scootin Sit to/from Stand: 4 Weight Bearing Right Lower Extremity: Right Weight Bearing/Tolerated Left Lower Extremity: Left Weight Bearing/Tolerated Exercises Seated Therapy Exercises: Ankle pumps, Long arc quads Seated Reps: 10 Assessment Current Status: Fair Progress Pt is able to perform seated LE ex. Pt is CGA for transfers and transferred from recliner to shower chair. Nurse aid and PT assisted pt via shower chair to the shower. Pt is with nurse aid. PT Short Term Goals Short Term Goals Time Frame: Nov 28, 2018 Transfers (B,C,W/C) (FIM): 4 Gait (FIM): 1 Distance (FIM): 1=up to 49 ft Gait Distance Comment: 25' Gait Level of Assist: 4 Gait Assistive Device: FWW PT Plan Problem List Problem List: Activity Tolerance, Functional Strength, Safety, Balance, Gait, Transfer, Bed Mobility, ROM Treatment/Plan Treatment Plan: Continue Plan of Care Treatment Plan: Bed Mobility, Concurrent Therapy, Education, Functional Activity Darrell, Functional Strength, Gait, Safety, Therapeutic Exercise, Transfers Treatment Duration: Nov 28, 2018 Frequency: 6 times per week Estimated Hrs Per Day: .25 hour per day (15-30') Patient and/or Family Agrees t: Yes Time/GCodes Time In: 1022 Time Out: 1031 Total Billed Treatment Time: 11 Total Billed Treatment 1 visit FA 11 min BRIGID,KRISSY PT Nov 23, 2018 11:08
[2018-11-23] MEDS ORDERED: acetaZOLAMIDE 250 MG (DIAMOX) TAB PO SCH (11:15)
[2018-11-23] MEDS ORDERED: MEROPENEM 500 MG/SWFI 10 ML IV PUSH IV SCH ×2 (12:30)
[2018-11-23] MEDS ORDERED: RT-ALBUTEROL SULF 2.5 MG/3 ML PRE-MIX VIAL IH SCH (13:00)
[2018-11-23] MEDS ORDERED: NON-FORMULARY MEDICATION 1 EA EA (Midodrine HCl 5 MG) PO SCH (13:00)
--- NOTE | 2018-11-23 13:54 | NUR ---
Inpatient rehab evaluation Received order to evaluate patient for admission to the inpatient rehab unit. Notified that patient will be discharging to [facility]. Thank you for the referral.
--- NOTE | 2018-11-23 14:41 | NUR ---
CM FINALIZED DC PLANNING: Patient has been accepted to [facility] for swing bed status on this date. Patient will be admitted to Dr. Michaud et will transport via EMS with oxygen support. Faxed EMS non emergent transfer form. Updated primary care nurse Rebecca RN with number for report, room number 101, et accepting physician information. Also updated refrigeration unit repairer Jeanine with above info.
--- NOTE | 2018-11-23 15:14 | Progress Note-Cardiology ---
Cardiology SOAP Progress Note Subjective: Sitting up in a recliner at the bedside. States she is feeling much better and will be going to [facility] today. No c/o CP or pal Objective: I&O/Vital Signs 11/23/18 11/23/18 11/23/18 07:14 08:00 08:00 Temp 97.2 Pulse 71 Resp 18 B/P (MAP) 149/65 (93) Pulse Ox 98 97 O2 Delivery Nasal Cannula Nasal Cannula Nasal Cannula O2 Flow Rate 5.00 5.00 5.00 11/23/18 00:00 Intake Total 1140 ml Output Total 300 ml Balance 840 ml Weight (Pounds): 256 Weight (Ounces): 1.0 Weight (Calculated Kilograms): 116.840844 Constitutional: AAO x 3 Respiratory: chest expansion is symmetric, chest is bilaterally symmetric, rhonchi (throughout), other (diminished lower lobes bilat; coarse lung sounds) Cardiovascular: irregularly irregular, S1 and S2, systolic murmur Gastrointestional: round, audible bowel sounds Extremities: no lower extremity edema bilateral Neurologic/Psychiatric: grossly intact Skin: No rash, No ulcerations Results/Procedures: Labs Laboratory Tests 11/22/18 18:29: Glucometer 143H 11/22/18 19:02: Triglycerides Level 249H 11/22/18 21:33: Glucometer 178H 11/22/18 22:50: Triglycerides Level 241H 11/23/18 00:09: Glucometer 170H 11/23/18 05:39: Glucometer 231H 11/23/18 05:40: White Blood Count 18.6H, Red Blood Count 5.19, Hemoglobin 14.2, Hematocrit 47, Mean Corpuscular Volume 90, Mean Corpuscular Hemoglobin 27, Mean Corpuscular Hemoglobin Concent 30L, Red Cell Distribution Width 15.8H, Platelet Count 291, Mean Platelet Volume 9.9, Neutrophils (%) (Auto) 92H, Lymphocytes (%) (Auto) 4L , Monocytes (%) (Auto) 3, Eosinophils (%) (Auto) 0, Basophils (%) (Auto) 1, Neutrophils # (Auto) 17.2H, Lymphocytes # (Auto) 0.8L, Monocytes # (Auto) 0.6, Eosinophils # (Auto) 0.0, Basophils # (Auto) 0.1, Sodium Level 138, Potassium Level 4.4, Chloride Level 89L, Carbon Dioxide Level 36H, Anion Gap 13, Blood Urea Nitrogen 23H, Creatinine 0.75, Estimat Glomerular Filtration Rate > 60, BUN /Creatinine Ratio 31, Glucose Level 254H, Calcium Level 9.5, Phosphorus Level 4.3, Magnesium Level 2.2 11/23/18 12:16: Glucometer 253H Microbiology 11/19/18 Blood Culture - Preliminary, Resulted No growth 11/23/18 Gram Stain - Final, Resulted 11/23/18 Sputum Culture, Resulted Pending 11/19/18 Urine Culture - Preliminary, Resulted Escherichia coli See Comments Laboratory Tests 11/22/18 03:12 11/23/18 05:40 A/P: Assessment: Acute on chronic respiratory failure requiring intubation - now extubated - management per medical/pulmonary services Pneumonia - management per medical/pulmonary services Acute on chronic exacerbation of COPD Elevated troponin likely d/t hypoxia (Type 2 ME) Echo of 11/20/18: LVEF 50-55%, no RWMA, mild dilatation of LA Electrolyte abnormalities, improved after treatment A-fib - rate improved UTI - management per medical services Obesity with obesity hypoventilation syndrome DM 2 Liver enzyme elevation HLD - statin tx Plan: Continue current medication regimen Transferring to [facility] Physician Assessment Physician Assessment No cp or palp or syncope. Gen malaise Lungs: fair bilat air entry Cor: irreg Ext: no c/c. Mild to mod edema of the legs A&R * As documented in our note above that I updated (italics) * I spoke with her and explained her CV issues * Monitor labs * Dr Nuñez covering over the weekend NIKOLAI STEVENSON [facility] Nov 23, 2018 15:14 BEV CANTU [facility] Nov 23, 2018 15:36
--- NOTE | 2018-11-23 15:42 | NUR ---
Responded to call light: pt requested Dl. I assisted pt in calling in her requested and engaged in rapport building. Pt is Amish and does not request contact of [facility] at this time.
[2018-11-23] MEDS ORDERED: metFORMIN 500 MG (GLUCOPHAGE) TAB PO SCH (17:00)
[2018-11-23] MEDS ORDERED: ZAFIRLUKAST 20 MG PO SCH (21:00)
[2018-11-23] MEDS ORDERED: clonazePAM 0.5 MG (KlonoPIN) TAB PO SCH (21:00)
[2018-11-23] MEDS ORDERED: NON-FORMULARY MEDICATION 1 EA EA (Glycopyrrolate/Formoterol Fum (Bevespi Aerosphere Inhale INH SCH (21:00)
[2018-11-23] MEDS ORDERED: guaiFENesin (MUCINEX) 600 MG TAB PO SCH (21:00)
[2018-11-23] MEDS ORDERED: ROSUVASTATIN 5 MG (CRESTOR) TABLET PO SCH (21:00)
[2018-11-23] MEDS ORDERED: lamoTRIgine 25 MG (LaMICtal) TAB PO SCH (21:00)
[2018-11-24] MEDS ORDERED: VENlafaxine XR 75 MG (EFFEXOR XR) CAP PO SCH (07:00)
[2018-11-24] MEDS ORDERED: DILTIAZEM 120 MG (CARDIZEM CD) CAP PO SCH (09:00)
[2018-11-24] MEDS ORDERED: PANTOPRAZOLE 40 MG (PROTONIX) TAB PO SCH (09:00)
[2018-11-24] MEDS ORDERED: NON-FORMULARY MEDICATION 1 EA EA (Solifenacin Succinate (Vesicare) 10 MG) PO SCH (09:00)
[2018-11-24] MEDS ORDERED: LEVOTHYROXINE 25 MCG (LEVOTHROID) TAB PO SCH (09:00)
[2018-11-24] MEDS ORDERED: FLUTICASONE NASAL SPRAY (FLONASE) 16 GM BTL NS SCH (09:00)
[2018-11-24] MEDS ORDERED: KCL 10 MEQ TAB (MICRO K) PO SCH (09:00)
[2018-11-24] MEDS ORDERED: NON-FORMULARY MEDICATION 1 EA EA (Omeprazole 40 MG) PO SCH (09:00)
[2018-11-24] MEDS ORDERED: ASPIRIN 325 MG (5 GR) TABLET PO SCH (09:00)
== END 2018-11-23 16:05 | disposition swing bed (61) | DRG 208 ==
LOC: ICU 20:03 → 4TH 11-22 16:50
PROVIDERS: ADMIT Family Medicine; ATTEND Family Medicine
PROC: 5A1945Z Respiratory Ventilation, 24-96 Consecutive Hours (ICD-10-PCS; principal; 2018-11-18)
DX: J96.01 Acute respiratory failure with hypoxia (principal); J96.02 Acute respiratory failure with hypercapnia; J15.6 Pneumonia due to other Gram-negative bacteria; J44.0 Chronic obstructive pulmonary disease with (acute) lower respiratory infection; J44.1 Chronic obstructive pulmonary disease with (acute) exacerbation; N39.0 Urinary tract infection, site not specified; E66.2 Morbid (severe) obesity with alveolar hypoventilation; Z68.42 Body mass index [BMI] 45.0-49.9, adult; I21.A1 Myocardial infarction type 2; E87.6 Hypokalemia; E83.39 Other disorders of phosphorus metabolism; E11.65 Type 2 diabetes mellitus with hyperglycemia; I10 Essential (primary) hypertension; K21.9 Gastro-esophageal reflux disease without esophagitis; E03.9 Hypothyroidism, unspecified; R74.8 Abnormal levels of other serum enzymes; I48.0 Paroxysmal atrial fibrillation; B96.20 Unspecified Escherichia coli [E. coli] as the cause of diseases classified elsewhere; G30.9 Alzheimer's disease, unspecified; F02.80 Dementia in other diseases classified elsewhere, unspecified severity, without behavioral disturbance, psychotic disturbance, mood disturbance, and anxiety
CPT/HCPCS: 36415; 36569; 71045; 76937; 80048; 80053; 81000; 82805; 82962; 83735; 83880; 84100; 84478; 84484; 85007; 85025; 85027; 87040; 87070; 87077; 87081; 87088; 87184; 87185; 87186; 87205; 93005; 93306; 94002; 94003; 94640; 94760; 94799

== ENCOUNTER → 2020-08-12 | Outpatient (CLI) | payer MEDICARE, OTHER ==
[~2020-08-12] MED LIST: ACET250T3 PO; ALBU18HF2 INH; ALBU2.5V4 NEB; AMLO-251 PO; APIX5TAB PO; ARIP15TA9 PO; ASPI-808 PO; CLON0.5T4 PO; DILT-27 PO; FLUT16SP22 NS; GLYC10.7 INH; GUAI600T43 PO; IPRA3AMP31 INH; ISM60TCR PO; LAMO25TA8 PO; LEVO25TA5 PO; LOSA50TA63 PO; MERO500V24 IV; METF-397 PO; MIDO2.5T PO; MIDO5TAB3 PO; MTP100TCR PO; OMEP40CA27 PO; POLY238P32 PO; POTA10TA10 PO; PRED10TA22 PO; ROSU5TAB13 PO; SITA100T12 PO; SOLI10TA2 PO; TORS20TA3 PO; VENL150C98 PO; ZFR20T PO
== END ==
LOC: LABNPT 12:26
PROVIDERS: ATTEND Nurse Practitioner Family
DX: R79.89 Other specified abnormal findings of blood chemistry (principal); Z20.828 Contact with and (suspected) exposure to other viral communicable diseases
CPT/HCPCS: 84145; U0002; 87635

== ENCOUNTER 2021-10-11 11:17 | Inpatient (IN) | payer MEDICARE ==
[~2021-10-11] VITALS: Ht 157.5 cm; Wt 113.4 kg
[~2021-10-11 11:17] MED LIST changes: +ARIP15TA20 PO; -ARIP15TA9 PO; +BUSP10TA95 PO; +CELE100C84 PO; +FEXO-14 PO; +FURO-124 PO; +GLIM4TAB5 PO; +IBUP-2473 PO; -ISM60TCR PO; +ISOS60TA63 PO; +OMEP20CA18 PO; -OMEP40CA27 PO; +OMEP40CA6 PO; +PANT40TA52 PO; +POTA10TA PO
[2021-10-11 11:41] VITALS: BP 145/86
--- NOTE | 2021-10-11 11:42 | ED Dyspnea ---
General Stated Complaint: SOB Source of Information: Patient Exam Limitations: No Limitations History of Present Illness Date Seen by Provider: Oct 11, 2021 Time Seen by Provider: 11:39 Initial Comments Patient is a 70-year-old female presents ED with respiratory distress. Patient was brought to ED by EMS. Patient had a oxygen level near 80% on 6 L. Was placed on nonrebreather with improvement. Patient with increased work of breathing. She reports mild cough. According to EMS they were called to her home over the past few days for low blood sugar. She was given a amp of D50 with improvement of her blood sugar. She refused to go to the hospital. Patient blood sugar was 168 on arrival. Difficulty obtaining history from patie nt secondary to her current respiratory state. Patient is alert and oriented x2. Patient denies any vomiting, diarrhea. She reports chest pain. She is currently on Lasix according to patient. She denies history of COPD. Patient was afebrile on arrival Allergies and Home Medications Allergies Coded Allergies: clarithromycin (Verified Allergy, Unknown, 11/18/18) moxifloxacin (Verified Allergy, Unknown, 11/18/18) nitrofurantoin (Verified Allergy, Unknown, 11/18/18) penicillin G (Verified Allergy, Unknown, Pt has received Omnicef & cephalexin in the past, 11/19/18) Pt has received Omnicef & cephalexin in the past (from External med history) sulfacetamide (Verified Allergy, Unknown, 11/18/18) trazodone (Verified Allergy, Unknown, 11/18/18) Patient Home Medication List Home Medication List Reviewed: Yes Albuterol Sulfate (Ventolin Hfa) 18 Gm Hfa.aer.ad, 2 PUFF INH QID PRN for S HORTNESS OF BREATH, (Reported) Entered as Reported by: RICKI MCCORMACK on 11/19/18 1120 Apixaban (Eliquis) 5 Mg Tablet, 5 MG PO BID, (Reported) Entered as Reported by: ADEN CALDWELL on 11/30/20 1623 Aripiprazole (Aripiprazole) 15 Mg Tablet, 15 MG PO DAILY, (Reported) Entered as Reported by: RICKI MCCORMACK on 11/19/18 1049 Buspirone HCl (Buspirone HCl) 10 Mg Tablet, 10 MG PO BID, (Reported) Entered as Reported by: ADEN CALDWELL on 11/30/20 162 Celecoxib (Celecoxib) 100 Mg Capsule, 100 MG PO BID, (Reported) Entered as Reported by: ADEN CALDWELL on 11/30/20 162 Fexofenadine HCl (Jennifer Allergy) 60 Mg Tablet, 60 MG PO DAILY, (Reported) Entered as Reported by: ADEN CALDWELL on 11/30/20 162 Fluticasone Propionate (Fluticasone Propionate) 16 Gm [place].susp, 1 SPRAY NS DAILY, (Reported) Entered as Reported by: RICKI MCCORMACK on 11/19/18 1120 Furosemide (Lasix) 40 Mg Tablet, 40 MG PO DAILY Prescribed by: LISA ACHARYA on 12/04/20 1148 Glimepiride (Glimepiride) 4 Mg Tablet, 4 MG PO DAILY, (Reported) Entered as Reported by: ADEN CALDWELL on 11/30/201622 Isosorbide Mononitrate (Isosorbide Mononitrate ER) 60 Mg Tab, 60 MG PO DAILY, (Reported) Entered as Reported by: RICKI MCCORMACK on 11/19/18 104 Lamotrigine (Lamotrigine) 25 Mg Tablet, 25 MG PO BID, (Reported) Entered as Reported by: RICKI MCCORMACK on 11/19/18 104 Levothyroxine Sodium (Levothyroxine Sodium) 25 Mcg Tablet, 25 MCG PO DAILY, (Reported) Entered as Reported by: RICKI MCCORMACK on 11/19/18 104 Metformin HCl (Metformin HCl) 500 Mg Tablet, 500 MG PO BID, (Reported) Entered as Reported by: RICKI MCCORMACK on 11/19/18 1120 Pantoprazole Sodium (Pantoprazole Sodium) 40 Mg Tablet.dr, 40 MG PO DAILY, (Reported) Entered as Reported by: ADEN CALDWELL on 11/30/201622 Potassium Chloride (K-Tab ER) 10 Meq Tablet.er, 20 MEQ PO BID, (Reported) Entered as Reported by: ADEN CALDWELL on 11/30/20 162 Prednisone (Prednisone) 10 Mg Tab.ds.pk, 10 MG PO DAILY Prescribed by: LISA ACHARYA on 12/04/20 1148 Rosuvastatin Calcium (Rosuvastatin Calcium) 5 Mg Tablet, 5 MG PO HS, (Reported) Entered as Reported by: RICKI MCCORMACK on 11/19/18 1120 Sitagliptin Phosphate (Januvia) 100 Mg Tablet, 100 MG PO DAILY, (Reported) Entered as Reported by: RICKI MCCORMACK on 11/19/18 1049 Venlafaxine HCl (Venlafaxine HCl ER) 150 Mg Cap.er.24h, 150 MG PO DAILY, (Reported) Entered as Reported by: RICKI MCCORMACK on 11/19/18 1049 Zafirlukast (Zafirlukast) 20 Mg Tablet, 20 MG PO BID, (Reported) Entered as Reported by: RICKI MCCORMACK on 11/19/18 1049 Review of Systems Review of Systems Constitutional: No chills, No diaphoresis, No fever EENTM: No ear pain, No mouth pain Respiratory: cough, short of breath Cardiovascular: chest pain, edema Gastrointestinal: No abdominal pain, No diarrhea, No nausea, No vomiting Musculoskeletal: No back pain, No joint pain Skin: No change in color, No change in hair/nails All Other Systems Reviewed Negative Unless Noted: Yes Past Aaicmmw-Wcdzki-Urdavu Hx Past Medical History Respiratory: Yes (RESPIRATORY FAILURE) Pneumonia, COPD Atrial Fibrillation, Hypertension Neurological: Yes Dementia Genitourinary: Yes UTI-Chronic Gastrointestinal: Yes Gastroesophageal Reflux Endocrine: Yes Diabetes, Non-Insulin dep Psychosocial: No Integumentary: No Physical Exam Vital Signs Vital Signs - First Documented Capillary Refill : Height, Weight, BMI Height: 5'4.00" Weight: 256lbs. 1.0oz. [id number]; 47.50 BMI Method: General Appearance: Moderate Distress HEENT: PERRL/EOMI, TMs Normal, Normal ENT Inspection, Pharynx Normal Neck: Full Range of Motion, Normal Inspection, Non Tender, Supple Respiratory: Decreased Breath Sounds Cardiovascular: Regular Rate, Rhythm, No Gallop, No Murmur Gastrointestinal: Normal Bowel Sounds, No Organomegaly, Non Tender, Soft Extremity: Other (Pitting edema bilateral lower extremities. +2 dorsalis pedis bilateral) Skin: Normal Color, Warm/Dry Focused Exam Lactate Level 10/11/21 11:43: Lactic Acid Level 0.72 Lactic Acid Level Laboratory Tests Test 10/11/21 11:43 Lactic Acid Level 0.72 MMOL/L (0.50-2.00) Procedures/Interventions Date of ETT Placement: Nov 18, 2018 Time of ETT Placement: 184 Progress/Results/Core Measures Results/Orders Lab Results Laboratory Tests Test 10/11/21 11:43 10/11/21 11:44 10/11/21 13:00 Range/Units White Blood Count 6.9 4.3-11.0 10^3/uL Red Blood Count 3.51 L 3.80-5.11 10^6/uL Hemoglobin 9.4 L 11.5-16.0 g/dL Hematocrit 32 L 35-52 % Mean Corpuscular Volume 92 80-99 fL Mean Corpuscular Hemoglobin 27 25-34 pg Mean Corpuscular Hemoglobin Concent 29 L 32-36 g/dL Red Cell Distribution Width 16.1 H 10.0-14.5 % Platelet Count 289 130-400 10^3/uL Mean Platelet Volume 8.5 L 9.0-12.2 fL Immature Granulocyte % (Auto) 1 % Neutrophils (%) (Auto) 86 H 42-75 % Lymphocytes (%) (Auto) 7 L 12-44 % Monocytes (%) (Auto) 6 0-12 % Eosinophils (%) (Auto) 0 0-10 % Basophils (%) (Auto) 0 0-10 % Neutrophils # (Auto) 5.9 1.8-7.8 10^3/uL Lymphocytes # (Auto) 0.5 L 1.0-4.0 10^3/uL Monocytes # (Auto) 0.4 0.0-1.0 10^3/uL Eosinophils # (Auto) 0.0 0.0-0.3 10^3/uL Basophils # (Auto) 0.0 0.0-0.1 10^3/uL Immature Granulocyte # (Auto) 0.1 0.0-0.1 10^3/uL Neutrophils % (Manual) 88 % Lymphocytes % (Manual) 6 % Monocytes % (Manual) 5 % Polychromasia SLIGHT Hypochromasia SLIGHT Basophilic Stippling SLIGHT Stomatocytes SLIGHT Prothrombin Time 17.8 H 12.2-14.7 SEC INR Comment 1.4 0.8-1.4 Activated Partial Thromboplast Time 37 H 24-35 SEC Sodium Level 123 *L 135-145 MMOL/L Potassium Level 4.2 3.6-5.0 MMOL/L Chloride Level 68 L 98-107 MMOL/L Carbon Dioxide Level 48 *H 21-32 MMOL/L Anion Gap 7 5-14 MMOL/L Blood Urea Nitrogen 7 7-18 MG/DL Creatinine 0.61 0.60-1.30 MG/DL Estimat Glomerular Filtration Rate 98 BUN/Creatinine Ratio 11 Glucose Level 130 H 70-105 MG/DL Lactic Acid Level 0.72 0.50-2.00 MMOL/L Calcium Level 9.1 8.5-10.1 MG/DL Corrected Calcium 9.3 8.5-10.1 MG/DL Total Bilirubin 0.9 0.1-1.0 MG/DL Aspartate Amino Transf (AST/SGOT) 13 5-34 U/L Alanine Aminotransferase (ALT/SGPT) 13 0-55 U/L Alkaline Phosphatase 56 40-136 U/L Troponin I < 0.028 <0.028 NG/ML C-Reactive Protein High Sensitivity 0.92 H 0.00-0.50 MG/DL B-Type Natriuretic Peptide 242.2 H <100.0 PG/ML Total Protein 7.9 6.4-8.2 GM/DL Albumin 3.7 3.2-4.5 GM/DL Procalcitonin 0.04 <0.10 NG/ML Influenza Type A (RT-PCR) Not Detected Not Detecte Influenza Type B (RT-PCR) Not Detected Not Detecte SARS-CoV-2 RNA (RT-PCR) Not Detected Not Detecte Blood Gas Puncture Site L RAD Blood Gas Patient Temperature 37.0 Arterial Blood pH 7.34 *L 7.37-7.43 Arterial Blood Partial Pressure CO2 95 *H 35-45 MMHG Arterial Blood Partial Pressure O2 86 79-93 MMHG Arterial Blood HCO3 50 *H 23-27 MMOL/L Arterial Blood Total CO2 52.8 *H 21.0-31.0 MMOL/L Arterial Blood Oxygen Saturation 97 94-100 % Arterial Blood Base Excess 22.9 H -2.5-2.5 MMOL/L Zach Test YES-POS Blood Gas Ventilator Setting NO Blood Gas Inspired Oxygen 45% Urine Color YELLOW Urine Clarity SL CLOUDY Urine pH 5.5 5-9 Urine Specific [place] 1.020 1.016-1.022 Urine Protein NEGATIVE NEGATIVE Urine Glucose (UA) NEGATIVE NEGATIVE Urine Ketones NEGATIVE NEGATIVE Urine Nitrite NEGATIVE NEGATIVE Urine Bilirubin NEGATIVE NEGATIVE Urine Urobilinogen 0.2 < = 1.0 MG/DL Urine Leukocyte Esterase NEGATIVE NEGATIVE Urine RBC (Auto) 1+ H NEGATIVE Urine RBC 0-2 /HPF Urine WBC 0-2 /HPF Urine Squamous Epithelial Cells 0-2 /HPF Urine Crystals NONE /LPF Urine Bacteria NEGATIVE /HPF Urine Casts NONE /LPF Urine Mucus NEGATIVE /LPF Urine Culture Indicated NO My Orders Orders - KAILEE KAUFMAN Cbc With Automated Diff (10/11/21 11:33) Comprehensive Metabolic Panel (10/11/21 11:33) Blood Culture (10/11/21 11:33) Sputum Culture (10/11/21 11:33) Urinalysis (10/11/21 11:33) Urine Culture (10/11/21 11:33) Protime With Inr (10/11/21 11:33) Partial Thromboplastin Time (10/11/21 11:33) Chest 1 View, Ap/Pa Only (10/11/21 11:33) Ed Iv/Invasive Line Start (10/11/21 11:33) O2 (10/11/21 11:33) Lactic Acid Analyzer (10/11/21 11:33) Covid 19 Inhouse Test (10/11/21 11:33) Influenza A And B By Pcr (10/11/21 11:33) Accucheck Stat ONCE (10/11/21 11:33) Hs C Reactive Protein (10/11/21 11:33) Procalcitonin (Pct) (10/11/21 11:33) Bnp [place] (10/11/21 11:33) Troponin I [place] (10/11/21 11:33) Meropenem (Merrem 500 Mg) (10/11/21 11:45) Methylprednisolone Sod Succ (Solu-Medrol (10/11/21 11:45) Arterial Blood Gas (10/11/21 11:50) Ekg Tracing (10/11/21 11:58) Manual Differential (10/11/21 11:43) Ns Iv 1000 Ml (Sodium Chloride 0.9%) (10/11/21 12:48) Catheter(Urinary) Insert & Ass 03,15 (10/11/21 13:11) Cefepime Injection (Maxipime Injection) (10/11/21 14:30) Admission Order(Inpt,Obs,Sdc) (10/11/21 14:39) Code/Resuscitation (10/11/21 14:39) Ambulate 08,12,20 (10/11/21 14:39) Sequential Compression Device ONCE (10/11/21 14:39) Initiate Admission Nursing Pro .admission (10/11/21 14:39) Vital Signs/I&O 10/11/21 10/11/21 10/11/21 11:17 11:17 11:41 Temp 36.4 Pulse 84 85 Resp 32 33 B/P (MAP) 145/86 (105) Pulse Ox 88 97 O2 Delivery Nasal Cannula Nasal Cannula O2 Flow Rate 6.00 6.00 45.00 EKG : Comment Atrial fibrillation, 74 bpm, QRS duration 99 MS, QTc 491 MS Departure Communication (Admissions) Time/Spoke to Admitting Phy: 14:[address] Tierney who accepts patient to cardiac stepdown Patient in respiratory distress on arrival. Not able to to obtain much medical history from patient on arrival. Difficulty contacting family. Patient was hypoxic on nonrebreather. Patient was placed on BiPAP secondary to the hypoxia and slightly altered. Patient ABG with a pH of 7.34, elevated PCO2 95 and bicarb 50. improvement of conditions. She was nontachycardic. Blood pressure stable. Patient with a history of COPD and A. fib after discussing with daughter. She states patient is currently full code. Initially difficult obtaining this from patient secondary to her mental state. Patient with a normal white blood count. Chest x-ray cardiomegaly, pulmonary edema with potential infiltrate. Patient was given cefepime and IV Solu-Medrol here in the ED. Patient was given a breathing treatment in route. Patient condition continue to improve. She was hyponatremic, hypochloremic. Midline was placed secondary to a difficult peripheral IV stick. Patient was given a liter of fluid. Discussed CODE STATUS with patient and states that she is a full CODE STATUS. This was verified with daughter as she does agree. Patient was discussed with Dr. Tierney hospitalist who accepts patient to cardiac stepdown. Consulted with Dr. Abbott regarding the A. fib which appears to be chronic. Currently on Eliquis. Patient symptoms continue to improve. Patient Covid and influenza negative. Blood cultures pending. Normal lactic acid. Impression Primary Impression: Acute respiratory failure Additional Impressions: Atrial fibrillation COPD exacerbation Hyponatremia Disposition: 09 ADMITTED INPATIENT Condition: Stable Admissions Decision to Admit Reason: Admit from ER (General) Decision to Admit/Date: Oct 11, 2021 Time/Decision to Admit Time: 14:44 Departure-Patient Inst. Referrals: KIRBY JUNG MD (PCP/Family) Primary Care Physician KAILEE KAUFMAN Oct 11, 2021 11:41
[2021-10-11] MEDS ORDERED: MEROPENEM 500 MG in NS (IVPB) 100 ML IV ONE (11:45)
[2021-10-11] MEDS ORDERED: methylPREDNISolone 125 MG (Solu-MEDROL) VIAL IM ONE (11:45)
[2021-10-11 11:54] LABS: BASOPHILS % (AUTO) 0 % (0-10); EOSINOPHILS % (AUTO) 0 % (0-10); HEMATOCRIT 32 % (35-52); HEMOGLOBIN 9.4 g/dL (11.5-16.0); LYMPHOCYTES # (AUTO) 0.5 10^3/uL (1.0-4.0); LYMPHOCYTES % (AUTO) 7 % (12-44); MEAN CORPUSCULAR HEMOGLOBIN 27 pg (25-34); MEAN CORPUSCULAR HGB CONC 29 g/dL (32-36); MEAN CORPUSCULAR VOLUME 92 fL (80-99); MEAN PLATELET VOLUME 8.5 fL (9.0-12.2); MONOCYTES # (AUTO) 0.4 10^3/uL (0.0-1.0); MONOCYTES % (AUTO) 6 % (0-12); NEUTROPHILS # (AUTO) 5.9 10^3/uL (1.8-7.8); NEUTROPHILS % (AUTO) 86 % (42-75); PLATELET COUNT 289 10^3/uL (130-400); WHITE BLOOD COUNT 6.9 10^3/uL (4.3-11.0)
[2021-10-11 11:57] LABS: ABG BASE EXCESS 22.9 MMOL/L (-2.5-2.5); ABG OXYGEN SATURATION 97 % (94-100); ABG PO2 86 MMHG (79-93)
[2021-10-11 12:00] LABS: ABG PCO2 95 MMHG (35-45); ABG PH 7.34 (7.37-7.43); ABG TCO2 52.8 MMOL/L (21.0-31.0); ALLENS TEST YES-POS; INSPIRED O2 45%; VENTILATOR NO
[2021-10-11 12:05] LABS: ALBUMIN 3.7 GM/DL (3.2-4.5)
[2021-10-11 12:06] LABS: CHLORIDE 68 MMOL/L (98-107); POTASSIUM 4.2 MMOL/L (3.6-5.0)
[2021-10-11 12:07] LABS: CALCIUM 9.1 MG/DL (8.5-10.1)
[2021-10-11 12:08] LABS: GLUCOSE 130 MG/DL (70-105); TOTAL PROTEIN 7.9 GM/DL (6.4-8.2)
[2021-10-11 12:10] LABS: BILIRUBIN,TOTAL 0.9 MG/DL (0.1-1.0)
[2021-10-11 12:11] LABS: ALKALINE PHOSPHATASE 56 U/L (40-136)
[2021-10-11 12:12] LABS: CREATININE SERUM 0.61 MG/DL (0.60-1.30); GFR ESTIMATED 98; INR 1.4 (0.8-1.4); PROTHROMBIN TIME PATIENT 17.8 SEC (12.2-14.7)
[2021-10-11 12:13] LABS: BUN/CREATININE RATIO 11
[2021-10-11 12:14] LABS: ALANINE AMINOTRANSFERASE 13 U/L (0-55)
[2021-10-11 12:31] LABS: HYPOCHROMASIA SLIGHT; LYMPHOCYTES % (MANUAL) 6 %; MONOCYTES % (MANUAL) 5 %; NEUTROPHILS % (MANUAL) 88 %; POLYCHROMASIA SLIGHT; STOMATOCYTES SLIGHT
[2021-10-11 12:36] LABS: CARBON DIOXIDE 48 MMOL/L (21-32); SODIUM 123 MMOL/L (135-145)
[2021-10-11] MEDS ORDERED: NS IV 1000 ML 1,000 ML IV STA (12:48)
--- NOTE | 2021-10-11 12:48 | Diagnostic Imaging Report ---
INDICATION: Cough, respiratory distress. Frontal chest obtained at 12:28 p.m. and compared to 12/04/2020. There is marked cardiomegaly. There is central vascular congestion with interstitial edema and bibasilar infiltrates. There is no pneumothorax or gross pleural fluid. IMPRESSION: Marked cardiomegaly with central vascular congestion and interstitial edema with worsening bibasilar alveolar infiltrates. Dictated by: Dictated on workstation # [id number]
[2021-10-11 13:26] LABS: BILIRUBIN,URINE NEGATIVE (NEGATIVE); CLARITY,URINE SL CLOUDY; COLOR,URINE YELLOW; GLUCOSE, URINE (UA) NEGATIVE (NEGATIVE); KETONES,URINE NEGATIVE (NEGATIVE); LEUKOCYTE ESTERASE ,URINE NEGATIVE (NEGATIVE); NITRITE,URINE NEGATIVE (NEGATIVE); PH,URINE 5.5 (5-9); PROTEIN,URINE NEGATIVE (NEGATIVE)
[2021-10-11 13:37] LABS: BACTERIA,URINE NEGATIVE /HPF; RBC,URINE 0-2 /HPF; SQUAMOUS EPITHELIAL CELL,UR 0-2 /HPF; WBC,URINE 0-2 /HPF
[2021-10-11] MEDS ORDERED: CEFEPIME INJECTION 1,000 MG in NS (IVPB) 50 ML IV ONE (14:30)
[2021-10-11] MEDS: methylPREDNISolone 125 MG (Solu-MEDROL) VIAL IVP ONE ×2 (14:40→16:39)
[2021-10-11] MEDS ORDERED: polyethylene glycoL POWDER 17 GM (MIRALAX) PACK PO PRN ×2 (16:45→17:00)
[2021-10-11] MEDS ORDERED: MILK OF MAGNESIA 400 MG/5 ML 30 ML UDC PO PRN ×2 (16:45→17:00)
[2021-10-11] MEDS ORDERED: MELATONIN 3 MG TABLET PO PRN ×2 (16:45→17:00)
[2021-10-11] MEDS ORDERED: ANTACID SUSP 30 ML UDC (MYLANTA) PO PRN ×2 (16:45→17:00)
[2021-10-11] MEDS ORDERED: diphenhydrAMINE 25 MG TAB (BENADRYL) PO PRN ×2 (16:45→17:00)
[2021-10-11] MEDS ORDERED: morphine INJ 4 MG/ML 1 ML (VIAL/SYRINGE) IV PRN ×2 (16:45→17:00)
[2021-10-11] MEDS ORDERED: CALCIUM CARBONATE 500 MG (TUMS) TAB.CHEW PO PRN ×2 (16:45→17:00)
[2021-10-11] MEDS ORDERED: diphenhydrAMINE 50 MG/ML INJ (BENADRYL) IVP PRN ×2 (16:45→17:00)
[2021-10-11] MEDS ORDERED: NS IV 1000 ML 1,000 ML IV SCH (16:45)
[2021-10-11] MEDS ORDERED: NALOXONE 0.4 MG/ML 1 ML (NARCAN) VIAL IV PRN ×2 (16:45→17:00)
[2021-10-11] MEDS ORDERED: BISACODYL 10 MG SUPP (DULCOLAX) PR PRN ×2 (16:45→17:00)
[2021-10-11] MEDS ORDERED: ONDANSETRON 4 MG (ZOFRAN) ORAL DISSOLVE TAB PO PRN ×2 (16:45→17:00)
[2021-10-11] MEDS ORDERED: ACETAMINOPHEN 325 MG TABLET PO PRN (16:45)
[2021-10-11] MEDS ORDERED: LACTULOSE SYRUP 10GM/15ML (ENULOSE) 30ML UDC PO PRN ×2 (16:45→17:00)
[2021-10-11] MEDS ORDERED: ONDANSETRON 4 MG/2 ML (SDV) Z0FRAN IV PRN ×2 (16:45→17:00)
[2021-10-11] MEDS ORDERED: CEFEPIME INJECTION 1,000 MG in NS (IVPB) 50 ML IV SCH (16:45)
[2021-10-11 17:29] VITALS: BP 131/67
[2021-10-11 17:43] VITALS: BP 145/86
[2021-10-11] MEDS ORDERED: methylPREDNISolone 125 MG (Solu-MEDROL) VIAL IVP SCH (18:00)
[2021-10-11] MEDS ORDERED: RT-ALBUTEROL/IPRATROPIUM 3 ML (DUONEB) VIAL INH PRN (18:00)
[2021-10-11] MEDS: CEFEPIME INJECTION 1,000 MG in NS (IVPB) 50 ML IV SCH (18:09)
[2021-10-11] MEDS: methylPREDNISolone 125 MG (Solu-MEDROL) VIAL IVP SCH (18:09)
[2021-10-11] MEDS: NS IV 1000 ML 1,000 ML IV SCH (18:09)
[2021-10-11] MEDS: RT-ALBUTEROL/IPRATROPIUM 3 ML (DUONEB) VIAL INH SCH ×2 (18:30→22:11)
[2021-10-11 20:00] VITALS: BP 150/88
[2021-10-11] MEDS: SENNOSIDES 8.6 MG (SENOKOT) TAB PO SCH (20:41)
[2021-10-11] MEDS: DOCUSATE SODIUM 100 MG (COLACE) CAP PO SCH (20:41)
[2021-10-11] MEDS ORDERED: DEXTROSE 50% 50 ML (IMS) SYR ONE (20:45)
[2021-10-11] MEDS: APIXABAN 5 MG (ELIQUIS) TABLET PO SCH (20:57)
[2021-10-11] MEDS ORDERED: DEXTROSE 50% 50 ML (IMS) SYR IV ONE (21:00)
[2021-10-11] MEDS ORDERED: inSUlin ASPART (NovoLOG) 1 UNIT/0.01 ML (CHARGE PER UNIT) SC SCH (21:00)
[2021-10-11] MEDS: inSUlin ASPART (NovoLOG) 1 UNIT/0.01 ML (CHARGE PER UNIT) SC SCH (21:00)
[2021-10-11] MEDS ORDERED: SENNOSIDES 8.6 MG (SENOKOT) TAB PO SCH (21:00)
[2021-10-11] MEDS ORDERED: APIXABAN 5 MG (ELIQUIS) TABLET PO SCH (21:00)
[2021-10-11] MEDS ORDERED: DOCUSATE SODIUM 100 MG (COLACE) CAP PO SCH (21:00)
[2021-10-12] VITALS (7 sets, daily range): BP systolic 95–137; BP diastolic 58–78
[2021-10-12] MEDS: methylPREDNISolone 125 MG (Solu-MEDROL) VIAL IVP SCH ×4 (00:07→16:59)
[2021-10-12] MEDS: CEFEPIME INJECTION 1,000 MG in NS (IVPB) 50 ML IV SCH ×5 (00:07→22:58)
[2021-10-12] MEDS: NS IV 1000 ML 1,000 ML IV SCH (00:07)
[2021-10-12] MEDS: RT-ALBUTEROL/IPRATROPIUM 3 ML (DUONEB) VIAL INH SCH ×6 (01:59→21:36)
[2021-10-12 04:30] LABS: BASOPHILS % (AUTO) 0 % (0-10); EOSINOPHILS % (AUTO) 0 % (0-10); HEMATOCRIT 29 % (35-52); HEMOGLOBIN 8.7 g/dL (11.5-16.0); LYMPHOCYTES # (AUTO) 0.3 10^3/uL (1.0-4.0); LYMPHOCYTES % (AUTO) 5 % (12-44); MEAN CORPUSCULAR HEMOGLOBIN 27 pg (25-34); MEAN CORPUSCULAR HGB CONC 30 g/dL (32-36); MEAN CORPUSCULAR VOLUME 90 fL (80-99); MEAN PLATELET VOLUME 9.1 fL (9.0-12.2); MONOCYTES # (AUTO) 0.1 10^3/uL (0.0-1.0); MONOCYTES % (AUTO) 2 % (0-12); NEUTROPHILS # (AUTO) 4.9 10^3/uL (1.8-7.8); NEUTROPHILS % (AUTO) 92 % (42-75); PLATELET COUNT 278 10^3/uL (130-400); WHITE BLOOD COUNT 5.3 10^3/uL (4.3-11.0)
[2021-10-12 04:43] LABS: ALBUMIN 3.2 GM/DL (3.2-4.5); POTASSIUM 3.8 MMOL/L (3.6-5.0)
[2021-10-12 04:44] LABS: CALCIUM 8.8 MG/DL (8.5-10.1)
[2021-10-12 04:45] LABS: TOTAL PROTEIN 6.7 GM/DL (6.4-8.2)
[2021-10-12 04:47] LABS: BILIRUBIN,TOTAL 0.6 MG/DL (0.1-1.0)
[2021-10-12 04:49] LABS: CREATININE SERUM 0.64 MG/DL (0.60-1.30)
[2021-10-12] MEDS: inSUlin ASPART (NovoLOG) 1 UNIT/0.01 ML (CHARGE PER UNIT) SC SCH ×4 (05:45→22:58)
--- NOTE | 2021-10-12 08:08 | Consultation-Cardiology ---
HPI-Cardiology Cardiology Consultation Date of Consultation 10/12/21 Date of Admission Time Seen by Provider: 08:03 Indication: Acute respiratory failure HPI 70-year-old lady with history of COPD, brought to the emergency room by EMS for acute shortness of breath and respiratory failure, had oxygen saturation in the eighties. Patient reported cough, dyspnea which has been worsening recently. She was noted to have hypoglycemia. She denied any chest pain. No syncope. No palpitation. Home Medications & Allergies Allergies: Coded Allergies: clarithromycin (Verified Allergy, Unknown, 11/18/18) moxifloxacin (Verified Allergy, Unknown, 11/18/18) nitrofurantoin (Verified Allergy, Unknown, 11/18/18) penicillin G (Verified Allergy, Unknown, Pt has received Omnicef & cephalexin in the past, 11/19/18) Pt has received Omnicef & cephalexin in the past (from External med history) sulfacetamide (Verified Allergy, Unknown, 11/18/18) trazodone (Verified Allergy, Unknown, 11/18/18) Home Medication List Reviewed: Yes UAG-Ulfsxm-Uanzrd Hx Patient Social History Marital Status: Smoking Status: Former Smoker Have you traveled recently?: No Alcohol Use?: No Past Medical History Discussed below Family Medical History Family Medical Hx Noncontributory Review of Systems-General Review of Systems Constitutional: No chills, No diaphoresis, No fever EENTM: No ear pain, No mouth pain Respiratory: cough, dyspnea on exertion, short of breath Cardiovascular: see HPI; No chest pain; edema; No Hx of Intervention, No palpitations, No syncope, No vascular heart diseas, No other Gastrointestinal: No abdominal pain, No diarrhea, No nausea, No vomiting Genitourinary: no symptoms reported, see HPI Musculoskeletal: see HPI; No back pain, No joint pain Skin: No change in color, No change in hair/nails Psychiatric/Neurological: No Symptoms Reported, See HPI All Other Systems Reviewed Negative Unless Noted: Yes Reviewed Test Results Reviewed Test Results Lab Laboratory Tests Test 10/11/21 11:43 10/11/21 11:44 10/11/21 13:00 10/11/21 20:37 Range/Units White Blood Count 6.9 4.3-11.0 10^3/uL Red Blood Count 3.51 L 3.80-5.11 10^6/uL Hemoglobin 9.4 L 11.5-16.0 g/dL Hematocrit 32 L 35-52 % Mean Corpuscular Volume 92 80-99 fL Mean Corpuscular Hemoglobin 27 25-34 pg Mean Corpuscular Hemoglobin Concent 29 L 32-36 g/dL Red Cell Distribution Width 16.1 H 10.0-14.5 % Platelet Count 289 130-400 10^3/uL Mean Platelet Volume 8.5 L 9.0-12.2 fL Immature Granulocyte % (Auto) 1 % Neutrophils (%) (Auto) 86 H 42-75 % Lymphocytes (%) (Auto) 7 L 12-44 % Monocytes (%) (Auto) 6 0-12 % Eosinophils (%) (Auto) 0 0-10 % Basophils (%) (Auto) 0 0-10 % Neutrophils # (Auto) 5.9 1.8-7.8 10^3/uL Lymphocytes # (Auto) 0.5 L 1.0-4.0 10^3/uL Monocytes # (Auto) 0.4 0.0-1.0 10^3/uL Eosinophils # (Auto) 0.0 0.0-0.3 10^3/uL Basophils # (Auto) 0.0 0.0-0.1 10^3/uL Immature Granulocyte # (Auto) 0.1 0.0-0.1 10^3/uL Neutrophils % (Manual) 88 % Lymphocytes % (Manual) 6 % Monocytes % (Manual) 5 % Polychromasia SLIGHT Hypochromasia SLIGHT Basophilic Stippling SLIGHT Stomatocytes SLIGHT Prothrombin Time 17.8 H 12.2-14.7 SEC INR Comment 1.4 0.8-1.4 Activated Partial Thromboplast Time 37 H 24-35 SEC Sodium Level 123 *L 135-145 MMOL/L Potassium Level 4.2 3.6-5.0 MMOL/L Chloride Level 68 L 98-107 MMOL/L Carbon Dioxide Level 48 *H 21-32 MMOL/L Anion Gap 7 5-14 MMOL/L Blood Urea Nitrogen 7 7-18 MG/DL Creatinine 0.61 0.60-1.30 MG/DL Estimat Glomerular Filtration Rate 98 BUN/Creatinine Ratio 11 Glucose Level 130 H 70-105 MG/DL Lactic Acid Level 0.72 0.50-2.00 MMOL/L Calcium Level 9.1 8.5-10.1 MG/DL Corrected Calcium 9.3 8.5-10.1 MG/DL Total Bilirubin 0.9 0.1-1.0 MG/DL Aspartate Amino Transf (AST/SGOT) 13 5-34 U/L Alanine Aminotransferase (ALT/SGPT) 13 0-55 U/L Alkaline Phosphatase 56 40-136 U/L Troponin I < 0.028 <0.028 NG/ML C-Reactive Protein High Sensitivity 0.92 H 0.00-0.50 MG/DL B-Type Natriuretic Peptide 242.2 H <100.0 PG/ML Total Protein 7.9 6.4-8.2 GM/DL Albumin 3.7 3.2-4.5 GM/DL Procalcitonin 0.04 <0.10 NG/ML Influenza Type A (RT-PCR) Not Detected Not Detecte Influenza Type B (RT-PCR) Not Detected Not Detecte SARS-CoV-2 RNA (RT-PCR) Not Detected Not Detecte Blood Gas Puncture Site L RAD Blood Gas Patient Temperature 37.0 Arterial Blood pH 7.34 *L 7.37-7.43 Arterial Blood Partial Pressure CO2 95 *H 35-45 MMHG Arterial Blood Partial Pressure O2 86 79-93 MMHG Arterial Blood HCO3 50 *H 23-27 MMOL/L Arterial Blood Total CO2 52.8 *H 21.0-31.0 MMOL/L Arterial Blood Oxygen Saturation 97 94-100 % Arterial Blood Base Excess 22.9 H -2.5-2.5 MMOL/L Zach Test YES-POS Blood Gas Ventilator Setting NO Blood Gas Inspired Oxygen 45% Urine Color YELLOW Urine Clarity SL CLOUDY Urine pH 5.5 5-9 Urine Specific [place] 1.020 1.016-1.022 Urine Protein NEGATIVE NEGATIVE Urine Glucose (UA) NEGATIVE NEGATIVE Urine Ketones NEGATIVE NEGATIVE Urine Nitrite NEGATIVE NEGATIVE Urine Bilirubin NEGATIVE NEGATIVE Urine Urobilinogen 0.2 < = 1.0 MG/DL Urine Leukocyte Esterase NEGATIVE NEGATIVE Urine RBC (Auto) 1+ H NEGATIVE Urine RBC 0-2 /HPF Urine WBC 0-2 /HPF Urine Squamous Epithelial Cells 0-2 /HPF Urine Crystals NONE /LPF Urine Bacteria NEGATIVE /HPF Urine Casts NONE /LPF Urine Mucus NEGATIVE /LPF Urine Culture Indicated NO Glucometer 43 *L 70-110 MG/DL Test 10/11/21 20:42 10/11/21 21:43 10/12/21 00:05 10/12/21 04:21 Range/Units Glucometer 45 *L 146 H 127 H 70-110 MG/DL White Blood Count 5.3 4.3-11.0 10^3/uL Red Blood Count 3.22 L 3.80-5.11 10^6/uL Hemoglobin 8.7 L 11.5-16.0 g/dL Hematocrit 29 L 35-52 % Mean Corpuscular Volume 90 80-99 fL Mean Corpuscular Hemoglobin 27 25-34 pg Mean Corpuscular Hemoglobin Concent 30 L 32-36 g/dL Red Cell Distribution Width 16.5 H 10.0-14.5 % Platelet Count 278 130-400 10^3/uL Mean Platelet Volume 9.1 9.0-12.2 fL Immature Granulocyte % (Auto) 1 % Neutrophils (%) (Auto) 92 H 42-75 % Lymphocytes (%) (Auto) 5 L 12-44 % Monocytes (%) (Auto) 2 0-12 % Eosinophils (%) (Auto) 0 0-10 % Basophils (%) (Auto) 0 0-10 % Neutrophils # (Auto) 4.9 1.8-7.8 10^3/uL Lymphocytes # (Auto) 0.3 L 1.0-4.0 10^3/uL Monocytes # (Auto) 0.1 0.0-1.0 10^3/uL Eosinophils # (Auto) 0.0 0.0-0.3 10^3/uL Basophils # (Auto) 0.0 0.0-0.1 10^3/uL Immature Granulocyte # (Auto) 0.0 0.0-0.1 10^3/uL Sodium Level 133 L 135-145 MMOL/L Potassium Level 3.8 3.6-5.0 MMOL/L Chloride Level 76 L 98-107 MMOL/L Carbon Dioxide Level 45 H 21-32 MMOL/L Anion Gap 12 5-14 MMOL/L Blood Urea Nitrogen 9 7-18 MG/DL Creatinine 0.64 0.60-1.30 MG/DL Estimat Glomerular Filtration Rate 92 BUN/Creatinine Ratio 14 Glucose Level 157 H 70-105 MG/DL Calcium Level 8.8 8.5-10.1 MG/DL Corrected Calcium 9.4 8.5-10.1 MG/DL Total Bilirubin 0.6 0.1-1.0 MG/DL Aspartate Amino Transf (AST/SGOT) 10 5-34 U/L Alanine Aminotransferase (ALT/SGPT) 12 0-55 U/L Alkaline Phosphatase 47 40-136 U/L Total Protein 6.7 6.4-8.2 GM/DL Albumin 3.2 3.2-4.5 GM/DL Physical Exam Physical Exam Vital Signs Vital Signs - First Documented 10/11/21 16:30 FiO2 45 Capillary Refill : Less Than 3 Seconds Height, Weight, BMI Height: 5'4.00" Weight: 256lbs. 1.0oz. 116.278370gf; 45.71 BMI Method: General Appearance: WD/WN, Moderate Distress Eyes: Bilateral Eye Normal Inspection, Bilateral Eye PERRL, Bilateral Eye EOMI HEENT: PERRL/EOMI, TMs Normal, Normal ENT Inspection, Pharynx Normal Neck: Full Range of Motion, Normal Inspection, Non Tender, Supple Respiratory: Decreased Breath Sounds Cardiovascular: Regular Rate, Rhythm, No Gallop, No Murmur Gastrointestinal: Normal Bowel Sounds, No Organomegaly, Non Tender, Soft Back: Normal Inspection, No CVA Tenderness, No Vertebral Tenderness Extremity: Other (Pitting edema bilateral lower extremities. +2 dorsalis pedis bilateral) Neurologic/Psychiatric: Alert, Oriented x3, No Motor/Sensory Deficits, Normal Mood/Affect Skin: Normal Color, Warm/Dry Lymphatic: No Adenopathy A/P-Cardiology Admission Diagnosis Acute respiratory failure Acute exacerbation of COPD Chronic atrial fibrillation Hyperlipidemia Assessment/Plan Acute on chronic respiratory failure, pulmonary infiltrate on chest x-ray. Reporting improvement today. Feeling better. Managed by primary care team Acute exacerbation of COPD. Patient is reporting that she is feeling better, breathing better. Atrial fibrillation, chronic, rate controlled, maintained on oral anticoagulation. Echocardiogram was done in November [address] Hassan as ejection fraction 50 to 55%. Mild dilatation of the left atrium Diabetes mellitus, followed and managed by primary care physician Hyperlipidemia, monitor lipids Obesity hypoventilation syndrome, hypercapnia. Managed by medical team TEZ CAREY MD Oct 12, 2021 08:08
[2021-10-12] MEDS: SENNOSIDES 8.6 MG (SENOKOT) TAB PO SCH ×2 (08:16→22:59)
[2021-10-12] MEDS: DOCUSATE SODIUM 100 MG (COLACE) CAP PO SCH ×2 (08:16→22:59)
[2021-10-12] MEDS: APIXABAN 5 MG (ELIQUIS) TABLET PO SCH ×2 (08:16→22:58)
[2021-10-12] MEDS ORDERED: FEXO180T84 PO (14:02)
[2021-10-12] MEDS ORDERED: ISOS60TA63 PO (14:02)
[2021-10-12] MEDS ORDERED: HYDR50CA3 PO (14:02)
[2021-10-12] MEDS ORDERED: FURO40TA4 PO (14:02)
[2021-10-12] MEDS ORDERED: OLOP2.5D16 OU (14:02)
[2021-10-12] MEDS ORDERED: PANT20TA18 PO (14:02)
[2021-10-12] MEDS ORDERED: LIDO700A45 TD (14:02)
--- NOTE | 2021-10-12 20:03 | History & Physical-Hospitalist ---
CHLOE GALICIA 10/12/21 2003: History of Present Illness HPI/Chief Complaint CC: COPD exacerbation HPI: Imelda Yañez is a 70 year old white female who presented to the ED in the evening of 10/11/2020 via EMS due to a COPD exacerbation. She was admitted to cardiac step-down. Upon arrival to the ED she was noted to be a poor historian. This morning, she states that she remembers arriving to the hospital last night but does not recall much. She reports her breathing is ok when using supplemental oxygen. She states she did use her BiPAP throughout the night. She reports a previous occurrence of hospitalization for similar presentation at [facility]. She denies onset of any pain. She currently lives alone and uses a wheelchair. During the encounter this morning she noted that she has received the [employer] COVID-19 vaccination and would like to receive a booster. If her vaccine was at least 2 months ago it is recommended that she receives either the [employer] or [employer] booster. Counseled patient that since she is currentl y receiving steroids, it could be advantageous to wait 2-4 weeks after cessation of steroids to receive booster to maximize its effectiveness. Source: patient Exam Limitations: no limitations Date Seen 10/12/21 Time Seen by a Provider: 09:45 Attending Physician Nova Acharya Wen-Chou MD Referring Physician Date of Admission Oct 11, 2021 at 16:38 Home Medications & Allergies Home Medications Reviewed patient Home Medication Reconciliation performed by pharmacy medication reconciliations fire control technician g and/or nursing. Patients Allergies have been reviewed. Allergies Allergies Coded Allergies clarithromycin (Verified Allergy, Unknown, 11/18/18) moxifloxacin (Verified Allergy, Unknown, 11/18/18) nitrofurantoin (Verified Allergy, Unknown, 11/18/18) penicillin G (Verified Allergy, Unknown, Pt has received Omnicef & cephalexin in the past, 11/19/18) Pt has received Omnicef & cephalexin in the past (from External med history) sulfacetamide (Verified Allergy, Unknown, 11/18/18) trazodone (Verified Allergy, Unknown, 11/18/18) Past Necnsac-Pqeomt-Unxbko Hx Patient Social History Marrital Status: Employed/Student: retired Tobacco Use?: No Smoking Status: Former Smoker (used to smoke 1-2 packs per day for 18 years) Use of E-Cig and/or Vaping dev: No Substance use?: No Alcohol Use?: No Pt feels they are or have been: No Immunizations Up To Date First/Initial COVID19 Vaccinat: 2020 Second COVID19 Vaccination Luis: 2020 Tetanus Booster (TDap): Unknown Current Status Advance Directives: No Communicates: Verbally Primary Language: Kyrgyz Preferred Spoken Language: Kyrgyz Is interpretation needed?: No Past Medical History Surgeries: Section, Gallbladder, Hysterectomy, Tonsillectomy Pneumonia, COPD Currently Using BIPAP: Yes (uses at night) Atrial Fibrillation, Hypertension Dementia 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 History: Hysterectomy UTI-Chronic Gastroesophageal Reflux Arthritis (unspecified) Diabetes, Non-Insulin dep Review of Systems Constitutional: No chills; dizziness (occasional with ambulation); No fever EENTM: No hearing loss, No vision loss Respiratory: No short of breath Cardiovascular: No chest pain; edema (pedal edema); No palpitations Gastrointestinal: abdominal pain (states that she feels like she needs to have a BM); No constipation, No diarrhea, No loss of appetite, No nausea, No vomiting : No Musculoskeletal: joint pain (due to arthritis) Psychiatric/Neurological: Denies Headache Physical Exam Physical Exam Vital Signs Vital Signs - First Documented 10/11/21 16:30 FiO2 45 Capillary Refill : Less Than 3 Seconds Height, Weight, BMI Height: 5'4.00" Weight: 256lbs. 1.0oz. [id number]; 45.71 BMI Method: General Appearance: No Apparent Distress HEENT: No Scleral Icterus (L), No Scleral Icterus (R) Neck: Non Tender, Supple; No Lymphadenopathy (L), No Lymphadenopathy (R) Respiratory: No Accessory Muscle Use, No Respiratory Distress, Crackles (bilateral), Other (coarse breath sounds bilaterally) Cardiovascular: Normal Peripheral Pulses (left radial pulse +2), Irregularly Irregular, Tachycardia Gastrointestinal: Normal Bowel Sounds, Soft, Other (suprapubic tenderness) Genital/Rectal: Other (sims catheter in place) Extremity: Pedal Edema (+1 peripheral edema bilaterally) Neurologic/Psychiatric: Alert, Normal Mood/Affect Skin: Normal Color, Damp Lymphatic: No Adenopathy (no cervical or supraclavicular adenopathy) Results Results/Procedures Labs Laboratory Tests 10/11/21 11:43 10/12/21 04:21 Patient resulted labs reviewed. Imaging: Reviewed Imaging Report (echo and ECG) Assessment/Plan Admission Diagnosis COPD exacerbation Admission Status: Inpatient Order (span 2 midnights) Reason for Inpatient Admission: COPD exacerbation Assessment and Plan Assessment: COPD exacerbation Respiratory acidosis Atrial fibrillation BMI of 45.7 Debility T2DM Dementia Pulmonary hypertension Arthritis Plan: Continue Cefepime, Solu-medrol, and Albuterol-Ipratropium Wean supplemental O2 as tolerated BiPAP at night during sleep AM labs: CBC, BMP, ABG Sliding scale insulin Diabetic diet as tolerated PT/OT BiPAP order for at home use Continue Eliquis Stool softeners PRN NOVA ACHARYA DO 10/13/21 0611: History of Present Illness HPI/Chief Complaint Chief Complaint: Shortness of Breath HPI: This is a 70yoWF known to me of Dr. Truong who has a past medical history of obesity and hypoventilation syndrome noncompliant with BiPAP. Who just had her BiPAP picked up and taken by [employer] due to nonuse. Patient presented to the ER with shortness of breath and confusion. She was found to have CO2 narcosis and respiratory acidosis. BiPAP was placed and Cardiology will be consulted. We will treat her for exacerbation of COPD with Bacterial Bronchitis. She is chronically anemic, I did check an Iron and B12 level. Source: patient Exam Limitations: no limitations Past Hmbahnl-Laovrl-Jynsuk Hx Patient Social History Marrital Status: single Employed/Student: unemployed Smoking Status: Current Everyday Smoker (used to smoke 1-2 packs per day for 18 years) Past Medical History Sleep Apnea Currently Using CPAP: No Currently Using BIPAP: Yes (uses at night) High Cholesterol, Hypertension Arthritis (unspecified) Review of Systems Constitutional: see HPI, malaise, weakness Physical Exam Physical Exam General Appearance: No Apparent Distress, Chronically ill Eyes: Right Eye Normal Inspection, Right Eye PERRL HEENT: PERRL/EOMI, Normal ENT Inspection, Pharynx Normal, Moist Mucous Membranes Neck: Full Range of Motion, Normal Inspection, Non Tender Respiratory: Chest Non Tender, Lungs Clear, No Accessory Muscle Use, No Respiratory Distress, Crackles (bilateral) Cardiovascular: Regular Rate, Rhythm, No Edema, No Gallop, No JVD, No Murmur, Normal Peripheral Pulses Gastrointestinal: Normal Bowel Sounds, No Organomegaly, No Pulsatile Mass, Non Tender, Soft Back: Normal Inspection, No CVA Tenderness, No Vertebral Tenderness Extremity: Normal Capillary Refill, Normal Inspection, Normal Range of Motion, Non Tender, No Calf Tenderness, No Pedal Edema Neurologic/Psychiatric: Alert, Oriented x3, No Motor/Sensory Deficits, Normal Mood/Affect Skin: Normal Color, Warm/Dry Lymphatic: No Adenopathy Assessment/Plan Admission Diagnosis Assessment: Acute on chronic respiratory failure MANNY on biPAP non-compliant Morbid obesity AF Edema Smoker AECOPD Plan: Monitor closely O2 BiPAP Admission Status: Inpatient Order (span 2 midnights) Reason for Inpatient Admission: resp fail Diagnosis/Problems Diagnosis/Problems (1) COPD exacerbation Status: Acute (2) Hyponatremia Status: Acute (3) Atrial fibrillation Status: Acute (4) Acute respiratory failure Status: Resolved Resolution Date/Time: 11/23/18 @ 11:01 Supervisory-Addendum Brief Verification & Attestation Participated in pt care: history, MDM, physical Personally performed: exam, history, MDM, supervision of care Care discussed with: Medical Student Procedures: n/a Results interpretation: Verified all documentation Verification and Attestation of Medical Student E/M Service A medical student performed and documented this service in my presence. I reviewed and verified all information documented by the medical student and made modifications to such information, when appropriate. I personally performed the physical exam and medical decision making. Nova Acharya, Oct 13, 2021,06:06 CHLOE GALICIA Oct 12, 2021 20:03 NVOA ACHARYA DO Oct 13, 2021 06:11
[2021-10-13] VITALS: BP 137/82
[2021-10-13] MEDS: methylPREDNISolone 125 MG (Solu-MEDROL) VIAL IVP SCH ×5 (00:02→23:44)
[2021-10-13] MEDS: RT-ALBUTEROL/IPRATROPIUM 3 ML (DUONEB) VIAL INH SCH ×6 (02:18→21:51)
[2021-10-13 04:00] VITALS: BP 124/63
[2021-10-13] MEDS: CEFEPIME INJECTION 1,000 MG in NS (IVPB) 50 ML IV SCH ×4 (05:58→22:51)
[2021-10-13] MEDS: inSUlin ASPART (NovoLOG) 1 UNIT/0.01 ML (CHARGE PER UNIT) SC SCH ×4 (05:59→20:35)
[2021-10-13] MEDS ORDERED: hydrOXYzine (VISTARIL/ATARAX) 25 MG capsule/tablet PO PRN (07:00)
[2021-10-13] MEDS: LEVOTHYROXINE 25 MCG (LEVOTHROID) TAB PO SCH (07:11)
[2021-10-13] MEDS: GLIMEPIRIDE 4 MG (AMARYL) TAB PO SCH (07:11)
[2021-10-13 07:56] VITALS: BP 126/74
[2021-10-13] MEDS ORDERED: APIXABAN 5 MG (ELIQUIS) TABLET PO SCH (09:00)
--- NOTE | 2021-10-13 09:23 | Progress Note - Cardiology ---
Cardiology SOAP Progress Note Objective: I&O/Vital Signs 10/13/21 10/14/21 10/14/21 10/14/21 21:51 00:00 02:45 03:40 Temp 36.8 36.8 Pulse 90 78 Resp 19 24 B/P (MAP) 117/58 (77) 132/68 (89) Pulse Ox 92 95 95 95 O2 Delivery High Flow N/C Nasal Cannula High Flow N/C Nasal Cannula O2 Flow Rate 5.00 4.50 5.00 4.50 10/14/21 10/14/21 07:34 08:02 Temp 36.9 Pulse 80 Resp 22 B/P (MAP) 136/65 (88) Pulse Ox 96 94 O2 Delivery High Flow N/C Nasal Cannula O2 Flow Rate 5.00 5.00 10/14/21 00:00 Intake Total 4154 ml Output Total 4400 ml Balance -246 ml Weight (Pounds): 256 Weight (Ounces): 1.0 Weight (Calculated Kilograms): 116.525474 Constitutional: AAO x 3, well-developed, well-nourished Respiratory: No accessory muscle use, No respiratory distress; chest expansion is symmetric, chest is bilaterally symmetric Cardiovascular: irregularly irregular; No JVD; S1 and S2 Gastrointestional: No tender; soft, audible bowel sounds Neurologic/Psychiatric: grossly intact (moves all extremities) Skin: No rash on exposed areas, No ulcerations on exposed areas Results/Procedures: Labs Laboratory Tests 10/13/21 11:01: White Blood Count 9.6, Red Blood Count 3.44L, Hemoglobin 9.1L, Hematocrit 32L, Mean Corpuscular Volume 92, Mean Corpuscular Hemoglobin 27, Mean Corpuscular Hemoglobin Concent 29L, Red Cell Distribution Width 17.4H, Platelet Count 319, Mean Platelet Volume 9.0, Immature Granulocyte % (Auto) 1, Neutrophils (%) (Auto) 92H, Lymphocytes (%) (Auto) 4L, Monocytes (%) (Auto) 4, Eosinophils (%) (Auto) 0, Basophils (%) (Auto) 0, Neutrophils # (Auto) 8.8H, Lymphocytes # (Auto) 0.3L, Monocytes # (Auto) 0.3, Eosinophils # (Auto) 0.0, Basophils # (Auto) 0.0, Immature Granulocyte # (Auto) 0.1, Sodium Level 134L, Potassium Level 4.0, Chloride Level 78L, Carbon Dioxide Level 43H, Anion Gap 13, Blood Urea Nitrogen 11, Creatinine 0.67, Estimat Glomerular Filtration Rate 88, BUN/Creatinine Ratio 16, Glucose Level 237H, Calcium Level 9.4, Corrected Calcium 9.9, Total Bilirubin 0.6, Aspartate Amino Transf (AST/SGOT) 12, Alanine Aminotransferase (ALT/SGPT) 15, Alkaline Phosphatase 45, Total Protein 6.9, Albumin 3.4 10/13/21 11:03: Glucometer 199H 10/13/21 16:13: Glucometer 170H 10/13/21 20:11: Glucometer 184H 10/14/21 05:17: Glucometer 197H 10/14/21 06:15: Sodium Level 134L, Potassium Level 3.7, Chloride Level 80L, Carbon Dioxide Level 44H, Anion Gap 10, Blood Urea Nitrogen 10, Creatinine 0.64, Estimat Glomerular Filtration Rate 92, BUN/Creatinine Ratio 16, Glucose Level 202H, Calcium Level 9.0, Corrected Calcium 9.6, Total Bilirubin 0.6, Aspartate Amino Transf (AST/SGOT) 7, Alanine Aminotransferase (ALT/SGPT) 8, Alkaline Phosphatase 44, Total Protein 6.2L, Albumin 3.2 10/14/21 06:25: White Blood Count 8.3, Red Blood Count 3.15L, Hemoglobin 8.4L, Hematocrit 28L, Mean Corpuscular Volume 90, Mean Corpuscular Hemoglobin 27, Mean Corpuscular Hemoglobin Concent 30L, Red Cell Distribution Width 17.4H, Platelet Count 249, Mean Platelet Volume 8.8L, Immature Granulocyte % (Auto) 1, Neutrophils (%) (Auto) 92H, Lymphocytes (%) (Auto) 4L, Monocytes (%) (Auto) 3, Eosinophils (%) (Auto) 0, Basophils (%) (Auto) 0, Neutrophils # (Auto) 7.6, Lymphocytes # (Auto) 0.4L, Monocytes # (Auto) 0.3, Eosinophils # (Auto) 0.0, Basophils # (Auto) 0.0, Immature Granulocyte # (Auto) 0.1 Microbiology 10/11/21 Urine Culture - Final, Complete NO GROWTH 10/11/21 Blood Culture - Preliminary, Resulted No growth A/P: Assessment: Acute on chronic respiratory failure, likely multi-factorial d/t reasons noted below Acute exacerbation of COPD - managed per medical services Obesity hypoventilation syndrome Atrial fibrillation, chronic - rate controlled - OAC with Eliquis - Echocardiogram was done in November [address] Hassan as ejection fraction 50 to 55%. Mild dilatation of the left atrium Diabetes mellitus - followed and managed by primary care physician Hyperlipidemia - followed by PCP as out pt Plan: Continue current cardiac regimen including OAC Monitor lab closely We have reviewed the progress note from Dr. Abbott in detail NIKOLAI STEVENSON Oct 13, 2021 09:23
[2021-10-13] MEDS: lamoTRIgine 25 MG (LaMICtal) TAB PO SCH ×2 (09:41→20:36)
[2021-10-13] MEDS: metFORMIN 500 MG (GLUCOPHAGE) TAB PO SCH ×2 (09:41→16:45)
[2021-10-13] MEDS: SENNOSIDES 8.6 MG (SENOKOT) TAB PO SCH ×2 (09:41→20:36)
[2021-10-13] MEDS: LORATADINE (CLARITIN) 10 MG TAB PO SCH (09:42)
[2021-10-13] MEDS: FUROSEMIDE 40 MG (LASIX) TAB PO SCH (09:42)
[2021-10-13] MEDS: DOCUSATE SODIUM 100 MG (COLACE) CAP PO SCH ×2 (09:42→20:36)
[2021-10-13] MEDS: PANTOPRAZOLE 20 MG TABLET (PROTONIX) PO SCH (09:42)
[2021-10-13] MEDS: ISOSORBIDE MONONITRATE 60 MG (IMDUR) TAB PO SCH (09:42)
[2021-10-13] MEDS: KCL 10 MEQ TAB (MICRO K) PO SCH ×2 (09:42→16:45)
[2021-10-13] MEDS: LIDOCAINE 4% (SALONPAS) PATCH TOP SCH (09:43)
[2021-10-13 11:12] LABS: BASOPHILS % (AUTO) 0 % (0-10); EOSINOPHILS % (AUTO) 0 % (0-10); HEMATOCRIT 32 % (35-52); HEMOGLOBIN 9.1 g/dL (11.5-16.0); LYMPHOCYTES # (AUTO) 0.3 10^3/uL (1.0-4.0); LYMPHOCYTES % (AUTO) 4 % (12-44); MEAN CORPUSCULAR HEMOGLOBIN 27 pg (25-34); MEAN CORPUSCULAR HGB CONC 29 g/dL (32-36); MEAN CORPUSCULAR VOLUME 92 fL (80-99); MONOCYTES # (AUTO) 0.3 10^3/uL (0.0-1.0); MONOCYTES % (AUTO) 4 % (0-12); NEUTROPHILS # (AUTO) 8.8 10^3/uL (1.8-7.8); NEUTROPHILS % (AUTO) 92 % (42-75); PLATELET COUNT 319 10^3/uL (130-400); WHITE BLOOD COUNT 9.6 10^3/uL (4.3-11.0)
[2021-10-13 11:29] LABS: ALBUMIN 3.4 GM/DL (3.2-4.5); BILIRUBIN,TOTAL 0.6 MG/DL (0.1-1.0); CALCIUM 9.4 MG/DL (8.5-10.1); CREATININE SERUM 0.67 MG/DL (0.60-1.30); TOTAL PROTEIN 6.9 GM/DL (6.4-8.2)
[2021-10-13] MEDS: IRON SUCROSE 200 MG/10 ML (VENOFER) VIAL IV SCH (12:03)
[2021-10-13 12:40] VITALS: BP 125/60
--- NOTE | 2021-10-13 14:19 | Progress Note - Hospitalist ---
CHLOE GALICIA 10/13/21 1419: Subjective HPI/CC On Admission Date Seen by Provider: Oct 13, 2021 Time Seen by Provider: 10:30 Chief Complaint: Shortness of Breath HPI: This is a 70yoWF known to me of Dr. Truong who has a past medical history of obesity and hypoventilation syndrome noncompliant with BiPAP. Who just had her BiPAP picked up and taken by [facility] due to nonuse. Patient presented to the ER with shortness of breath and confusion. She was found to have CO2 narcosis and respiratory acidosis. BiPAP was placed and Cardiology will be consulted. We will treat her for exacerbation of COPD with Bacterial Bronchitis. She is chronically anemic, I did check an Iron and B12 level. Subjective/Events-last exam Imelda is sitting up in bed, pleasant, and conversing. She states that she feels better today and her breathing has improved. She slept well last night with the BiPAP. She reports loose stools, an abdominal sensation of needing to have a BM, and a regular appetite. She denies CP, SOB, N/V/D. Hemoglobin: 9.1 CO2: 48, likely secondary to COPD Glucose: 199 Yesterday morning her iron level was 15.0 Labs and medications have been reviewed. Review of Systems General: Appetite HEENT: No Head Aches Pulmonary: No Dyspnea Cardiovascular: No: Chest Pain Gastrointestinal: No: Nausea, Vomiting, Abdominal Pain, Diarrhea, Constipation Neurological: Numbness (numbness of fingers and toes, chronic) Focused Exam Lactate Level 10/11/21 11:43: Lactic Acid Level 0.72 Objective Exam Vital Signs Vital Signs Date Time Temp Pulse Resp B/P (MAP) Pulse Ox O2 Delivery O2 Flow Rate FiO2 10/13/21 12:40 37.0 83 20 125/60 (81) 94 Nasal Cannula 4.50 10/12/21 06:27 45 Capillary Refill : Less Than 3 Seconds General Appearance: No Apparent Distress Respiratory: No Accessory Muscle Use, No Respiratory Distress, Wheezing (left upper lung field), Other (mildly coarse breath sounds throughout) Cardiovascular: Irregularly Irregular Gastrointestinal: Normal Bowel Sounds, Non Tender, Soft Genital/Rectal: Other (sims catheter in place) Extremity: Pedal Edema (trace bilateral) Neurologic/Psychiatric: Alert, Normal Mood/Affect Skin: Normal Color, Warm/Dry Results/Procedures Lab Laboratory Tests 1/12/22 11:01 Patient resulted labs reviewed. Imaging: Reviewed Imaging Report (echo and ECG) Assessment/Plan Assessment and Plan Assess & Plan/Chief Complaint Assessment: COPD exacerbation Respiratory acidosis Atrial fibrillation BMI of 45.7 Debility T2DM Dementia Pulmonary hypertension Arthritis Iron deficiency anemia Hypercapnia, likely due to COPD Sleep apnea Plan: Continue Solu-medrol, Albuterol-Ipratropium, Singular, Claritin Wean supplemental O2 as tolerated BiPAP at night during sleep AM labs: CBC, BMP, ABG Sliding scale insulin Diabetic diet as tolerated PT/OT BiPAP order for at home use Continue Eliquis Stool softeners PRN Iron infusion NOVA ACHARYA DO 10/14/21 0536: Subjective Subjective/Events-last exam Pt is doing a lot better On 6L of oxygen PT and OT ordered Glucose was 160 Check labs since none were drawn this morning Iron of 15, we will give iron infusions BiPAP will be arranged to be delivered to her home Review of Systems General: Fatigue, Malaise Objective Exam General Appearance: No Apparent Distress, WD/WN, Chronically ill Respiratory: Lungs Clear, Normal Breath Sounds Cardiovascular: Regular Rate, Rhythm Neurologic/Psychiatric: Alert, Oriented x3 Assessment/Plan Assessment and Plan Assess & Plan/Chief Complaint Venofer BiPAP Supervisory-Addendum Brief Verification & Attestation Participated in pt care: history, MDM, physical Personally performed: exam, history, MDM, supervision of care Care discussed with: Medical Student Procedures: n/a Results interpretation: Verified all documentation Verification and Attestation of Medical Student E/M Service A medical student performed and documented this service in my presence. I reviewed and verified all information documented by the medical student and made modifications to such information, when appropriate. I personally performed the physical exam and medical decision making. Nova Acharya, Oct 14, 2021,05:34 CHLOE GALICIA Oct 13, 2021 14:19 NVOA ACHARYA DO Oct 14, 2021 05:36
[2021-10-13 16:00] VITALS: BP 115/58
--- NOTE | 2021-10-13 16:58 | Progress Note - Cardiology ---
Cardiology SOAP Progress Note Subjective: No cp or palp or syncope Shortness of breath is improving No n/v/d Gen malaise and weakness present Objective: I&O/Vital Signs 10/13/21 10/13/21 10/13/21 10/13/21 07:56 10:34 12:40 16:00 Temp 36.6 37.0 37.3 Pulse 78 83 88 Resp 20 20 20 B/P (MAP) 126/74 (91) 125/60 (81) 115/58 (77) Pulse Ox 94 94 94 92 O2 Delivery Nasal Cannula High Flow N/C Nasal Cannula Nasal Cannula O2 Flow Rate 5.00 5.00 4.50 4.50 10/13/21 00:00 Intake Total 1020 ml Output Total 2250 ml Balance -1230 ml Weight (Pounds): 256 Weight (Ounces): 1.0 Weight (Calculated Kilograms): 116.986137 Constitutional: AAO x 3, well-developed, well-nourished Respiratory: No accessory muscle use, No respiratory distress; chest expansion is symmetric, chest is bilaterally symmetric Cardiovascular: irregularly irregular; No JVD; S1 and S2 Gastrointestional: No tender; soft, audible bowel sounds Extremities: swelling (mild, bilat leg swelling); No clubbing, No cyanosis Neurologic/Psychiatric: other (moves all limbs equally) Skin: No rash on exposed areas, No ulcerations on exposed areas Results/Procedures: Labs Laboratory Tests 10/12/21 22:31: Glucometer 167H 10/13/21 05:21: Glucometer 160H 10/13/21 11:01: White Blood Count 9.6, Red Blood Count 3.44L, Hemoglobin 9.1L, Hematocrit 32L, Mean Corpuscular Volume 92, Mean Corpuscular Hemoglobin 27, Mean Corpuscular Hemoglobin Concent 29L, Red Cell Distribution Width 17.4H, Platelet Count 319, Mean Platelet Volume 9.0, Immature Granulocyte % (Auto) 1, Neutrophils (%) (Auto) 92H, Lymphocytes (%) (Auto) 4L, Monocytes (%) (Auto) 4, Eosinophils (%) (Auto) 0, Basophils (%) (Auto) 0, Neutrophils # (Auto) 8.8H, Lymphocytes # (Auto) 0.3L, Monocytes # (Auto) 0.3, Eosinophils # (Auto) 0.0, Basophils # (Auto) 0.0, Immature Granulocyte # (Auto) 0.1, Sodium Level 134L, Potassium Level 4.0, Chloride Level 78L, Carbon Dioxide Level 43H, Anion Gap 13, Blood Urea Nitrogen 11, Creatinine 0.67, Estimat Glomerular Filtration Rate 88, BUN/Creatinine Ratio 16, Glucose Level 237H, Calcium Level 9.4, Corrected Calcium 9.9, Total Bilirubin 0.6, Aspartate Amino Transf (AST/SGOT) 12, Alanine Aminotransferase (ALT/SGPT) 15, Alkaline Phosphatase 45, Total Protein 6.9, Albumin 3.4 10/13/21 11:03: Glucometer 199H 10/13/21 16:13: Glucometer 170H Microbiology 10/11/21 Urine Culture - Final, Complete NO GROWTH 10/11/21 Blood Culture - Preliminary, Resulted No growth Laboratory Tests 10/12/21 04:21 10/13/21 11:01 A/P: Assessment: Acute on chronic respiratory failure, likely multi-factorial d/t reasons noted below Acute exacerbation of COPD - managed per medical services Obesity hypoventilation syndrome Atrial fibrillation, chronic - rate controlled - OAC with Eliquis - Echocardiogram was done in November [address] Hassan as ejection fraction 50 to 55%. Mild dilatation of the left atrium Diabetes mellitus - followed and managed by primary care physician Hyperlipidemia - followed by PCP as out pt Plan: I interviewed and examined her and reviewed her hosp records Continue current cardiac regimen including OAC Monitor lab closely [facility] Oct 13, 2021 16:58
[2021-10-13 20:00] VITALS: BP 124/59
[2021-10-13] MEDS: LIDOCAINE PATCH REMOVAL TP SCH (20:36)
[2021-10-13] MEDS: MONTELUKAST 10 MG (SINGULAIR) TAB PO SCH (20:36)
[2021-10-14] VITALS (7 sets, daily range): BP systolic 111–136; BP diastolic 58–68
[2021-10-14] MEDS: RT-ALBUTEROL/IPRATROPIUM 3 ML (DUONEB) VIAL INH SCH ×6 (02:44→22:32)
[2021-10-14] MEDS: ACETAMINOPHEN 325 MG TABLET PO PRN ×2 (03:39→21:02)
[2021-10-14] MEDS: CEFEPIME INJECTION 1,000 MG in NS (IVPB) 50 ML IV SCH ×4 (05:12→23:01)
[2021-10-14] MEDS: GLIMEPIRIDE 4 MG (AMARYL) TAB PO SCH (05:13)
[2021-10-14] MEDS: LEVOTHYROXINE 25 MCG (LEVOTHROID) TAB PO SCH (05:13)
[2021-10-14] MEDS: methylPREDNISolone 125 MG (Solu-MEDROL) VIAL IVP SCH (05:13)
[2021-10-14] MEDS: inSUlin ASPART (NovoLOG) 1 UNIT/0.01 ML (CHARGE PER UNIT) SC SCH ×4 (06:25→21:03)
[2021-10-14 06:36] LABS: BASOPHILS % (AUTO) 0 % (0-10); EOSINOPHILS % (AUTO) 0 % (0-10); HEMATOCRIT 28 % (35-52); HEMOGLOBIN 8.4 g/dL (11.5-16.0); LYMPHOCYTES # (AUTO) 0.4 10^3/uL (1.0-4.0); LYMPHOCYTES % (AUTO) 4 % (12-44); MEAN CORPUSCULAR HEMOGLOBIN 27 pg (25-34); MEAN CORPUSCULAR HGB CONC 30 g/dL (32-36); MEAN CORPUSCULAR VOLUME 90 fL (80-99); MEAN PLATELET VOLUME 8.8 fL (9.0-12.2); MONOCYTES # (AUTO) 0.3 10^3/uL (0.0-1.0); MONOCYTES % (AUTO) 3 % (0-12); NEUTROPHILS # (AUTO) 7.6 10^3/uL (1.8-7.8); NEUTROPHILS % (AUTO) 92 % (42-75); PLATELET COUNT 249 10^3/uL (130-400); WHITE BLOOD COUNT 8.3 10^3/uL (4.3-11.0)
[2021-10-14 06:53] LABS: ALBUMIN 3.2 GM/DL (3.2-4.5); POTASSIUM 3.7 MMOL/L (3.6-5.0)
[2021-10-14 06:56] LABS: TOTAL PROTEIN 6.2 GM/DL (6.4-8.2)
[2021-10-14 06:58] LABS: BILIRUBIN,TOTAL 0.6 MG/DL (0.1-1.0)
[2021-10-14 07:00] LABS: CREATININE SERUM 0.64 MG/DL (0.60-1.30)
--- NOTE | 2021-10-14 08:43 | Progress Note - Cardiology ---
Cardiology SOAP Progress Note Subjective: Sitting up in bed States she feels pretty good this morning No c/o CP or SOB or palpitations Objective: I&O/Vital Signs 10/14/21 10/15/21 10/15/21 10/15/21 22:32 00:40 03:15 04:14 Temp 36.2 36.2 Pulse 75 78 Resp 20 22 B/P (MAP) 147/67 (93) 139/89 (106) Pulse Ox 97 94 90 95 O2 Delivery High Flow N/C Nasal Cannula High Flow N/C Nasal Cannula O2 Flow Rate 5.00 5.00 5.00 5.00 10/15/21 07:53 Temp 36.9 Pulse 84 Resp 20 B/P (MAP) 142/67 (92) Pulse Ox 96 O2 Delivery Nasal Cannula O2 Flow Rate 5.00 10/15/21 00:00 Intake Total 1992 ml Output Total 2350 ml Balance -358 ml Weight (Pounds): 256 Weight (Ounces): 1.0 Weight (Calculated Kilograms): 116.809885 Constitutional: AAO x 3, well-developed, well-nourished Respiratory: No accessory muscle use, No respiratory distress; chest expansion is symmetric, chest is bilaterally symmetric, other (diminished bases) Cardiovascular: irregularly irregular; No JVD; S1 and S2 Gastrointestional: No tender; soft, audible bowel sounds Extremities: swelling (mild, bilat leg swelling); No clubbing, No cyanosis Neurologic/Psychiatric: other (moves all limbs equally) Skin: No rash on exposed areas, No ulcerations on exposed areas Results/Procedures: Labs Laboratory Tests 10/14/21 11:06: Glucometer 147H 10/14/21 16:03: Glucometer 102 10/14/21 20:09: Glucometer 138H 10/15/21 05:25: White Blood Count 7.8, Red Blood Count 3.55L, Hemoglobin 9.2L, Hematocrit 33L, Mean Corpuscular Volume 92, Mean Corpuscular Hemoglobin 26, Mean Corpuscular Hemoglobin Concent 28L, Red Cell Distribution Width 17.5H, Platelet Count 286, Mean Platelet Volume 8.8L, Immature Granulocyte % (Auto) 1, Neutrophils (%) (Auto) 75, Lymphocytes (%) (Auto) 15, Monocytes (%) (Auto) 9, Eosinophils (%) ( Auto) 0, Basophils (%) (Auto) 0, Neutrophils # (Auto) 5.9, Lymphocytes # (Auto) 1.2, Monocytes # (Auto) 0.7, Eosinophils # (Auto) 0.0, Basophils # (Auto) 0.0, Immature Granulocyte # (Auto) 0.1, Sodium Level 139, Potassium Level 3.2L, Chloride Level 82L, Carbon Dioxide Level 43H, Anion Gap 14, Blood Urea Nitrogen 10, Creatinine 0.64, Estimat Glomerular Filtration Rate 96, BUN/Creatinine Ratio 16, Glucose Level 71, Calcium Level 9.5, Corrected Calcium 9.9, Total Bilirubin 0.7, Aspartate Amino Transf (AST/SGOT) 13, Alanine Aminotransferase (ALT/SGPT) 17, Alkaline Phosphatase 42, Total Protein 6.7, Albumin 3.5 10/15/21 05:32: Glucometer 63L 10/15/21 06:52: Glucometer 119H Microbiology 10/11/21 Urine Culture - Final, Complete NO GROWTH 10/11/21 Blood Culture - Preliminary, Resulted No growth A/P: Assessment: Acute on chronic respiratory failure, likely multi-factorial d/t reasons noted below Acute exacerbation of COPD - managed per medical services Obesity hypoventilation syndrome Atrial fibrillation, chronic - rate controlled - OAC with Eliquis - Echocardiogram was done in November [address] Hassan as ejection fraction 50 to 55%. Mild dilatation of the left atrium Diabetes mellitus - followed and managed by primary care physician Hyperlipidemia - followed by PCP as out pt Plan: Continue current cardiac regimen including OAC for stroke prophylaxis - this has been placed on hold per medical services in anticipation of dental surgery on Monday, Oct 18. We advise OAC only be held for 48 hours prior to procedure d/t risk of stroke and resumed COURT following procedure if deemed surgically safe. Her risk for non-cardiac procedure is deemed as intermediate. Monitor lab closely NIKOLAI STEVENSON Oct 14, 2021 08:43
[2021-10-14] MEDS: lamoTRIgine 25 MG (LaMICtal) TAB PO SCH ×2 (09:37→21:02)
[2021-10-14] MEDS: PANTOPRAZOLE 20 MG TABLET (PROTONIX) PO SCH (09:37)
[2021-10-14] MEDS: KCL 10 MEQ TAB (MICRO K) PO SCH ×2 (09:37→17:01)
[2021-10-14] MEDS: DOCUSATE SODIUM 100 MG (COLACE) CAP PO SCH ×2 (09:37→21:02)
[2021-10-14] MEDS: ISOSORBIDE MONONITRATE 60 MG (IMDUR) TAB PO SCH (09:37)
[2021-10-14] MEDS: SENNOSIDES 8.6 MG (SENOKOT) TAB PO SCH ×2 (09:37→21:02)
[2021-10-14] MEDS: FUROSEMIDE 40 MG (LASIX) TAB PO SCH (09:37)
[2021-10-14] MEDS: metFORMIN 500 MG (GLUCOPHAGE) TAB PO SCH ×2 (09:38→17:01)
[2021-10-14] MEDS: LIDOCAINE 4% (SALONPAS) PATCH TOP SCH (09:38)
[2021-10-14] MEDS: LORATADINE (CLARITIN) 10 MG TAB PO SCH (09:38)
--- NOTE | 2021-10-14 12:03 | Progress Note - Hospitalist ---
Subjective HPI/CC On Admission Date Seen by Provider: Oct 14, 2021 Time Seen by Provider: 10:00 Chief Complaint: Shortness of Breath HPI: This is a 70yoWF known to me of Dr. Troung who has a past medical history of obesity and hypoventilation syndrome noncompliant with BiPAP. Who just had her BiPAP picked up and taken by [facility] due to nonuse. Patient presented to the ER with shortness of breath and confusion. She was found to have CO2 narcosis and respiratory acidosis. BiPAP was placed and Cardiology will be consulted. We will treat her for exacerbation of COPD with Bacterial Bronchitis. She is chronically anemic, I did check an Iron and B12 level. Subjective/Events-last exam Pt doing a lot better Discharge planned for Monday BiPAP will be delivered to the home I did update case management Checked meds and labs Review of Systems General: Fatigue, Malaise Objective Exam Vital Signs Vital Signs Date Time Temp Pulse Resp B/P (MAP) Pulse Ox O2 Delivery O2 Flow Rate FiO2 10/15/21 04:14 36.2 78 22 139/89 (106) 95 Nasal Cannula 5.00 10/12/21 06:27 45 Capillary Refill : Less Than 3 Seconds General Appearance: No Apparent Distress, WD/WN, Chronically ill Respiratory: Lungs Clear, Normal Breath Sounds Cardiovascular: Regular Rate, Rhythm Neurologic/Psychiatric: Alert, Oriented x3, No Motor/Sensory Deficits, Normal Mood/Affect Results/Procedures Lab Laboratory Tests 10/14/21 06:15 10/14/21 06:25 Patient resulted labs reviewed. Imaging: Reviewed Imaging Report (echo and ECG) Assessment/Plan Assessment and Plan Assess & Plan/Chief Complaint Assessment: COPD exacerbation Respiratory acidosis Atrial fibrillation BMI of 45.7 Debility T2DM Dementia Pulmonary hypertension Arthritis Iron deficiency anemia Hypercapnia, likely due to COPD Sleep apnea PLan: DC tomorrow BiPAP Diagnosis/Problems Diagnosis/Problems (1) COPD exacerbation Status: Acute (2) Hyponatremia Status: Acute (3) Atrial fibrillation Status: Acute (4) Acute respiratory failure Status: Resolved Resolution Date/Time: 11/23/18 @ 11:01 LISA ACHARYA DO Oct 14, 2021 12:03
--- NOTE | 2021-10-14 12:10 | Progress Note - Cardiology ---
Cardiology SOAP Progress Note Subjective: No cp or palp or syncope Shortness of breath with exertion Gen malaise and weakness No n/v/d Objective: I&O/Vital Signs 10/14/21 10/14/21 10/14/21 10/14/21 02:45 03:40 07:34 08:00 Temp 36.8 Pulse 78 Resp 24 B/P (MAP) 132/68 (89) Pulse Ox 95 95 96 O2 Delivery High Flow N/C Nasal Cannula High Flow N/C O2 Flow Rate 5.00 4.50 5.00 4.50 10/14/21 10/14/21 08:02 10:11 Temp 36.9 Pulse 80 Resp 22 B/P (MAP) 136/65 (88) Pulse Ox 94 94 O2 Delivery Nasal Cannula High Flow N/C O2 Flow Rate 5.00 5.00 10/14/21 00:00 Intake Total 4154 ml Output Total 4400 ml Balance -246 ml Weight (Pounds): 256 Weight (Ounces): 1.0 Weight (Calculated Kilograms): 116.083637 Constitutional: AAO x 3, well-developed, well-nourished Respiratory: No accessory muscle use, No respiratory distress; chest expansion is symmetric, chest is bilaterally symmetric, other (diminished bases) Cardiovascular: irregularly irregular; No JVD; S1 and S2 Gastrointestional: No tender; soft, audible bowel sounds Extremities: swelling (mild, bilat leg swelling); No clubbing, No cyanosis Neurologic/Psychiatric: other (moves all limbs equally) Skin: No rash on exposed areas, No ulcerations on exposed areas Results/Procedures: Labs Laboratory Tests 10/13/21 16:13: Glucometer 170H 10/13/21 20:11: Glucometer 184H 10/14/21 05:17: Glucometer 197H 10/14/21 06:15: Sodium Level 134L, Potassium Level 3.7, Chloride Level 80L, Carbon Dioxide Level 44H, Anion Gap 10, Blood Urea Nitrogen 10, Creatinine 0.64, Estimat Glomerular Filtration Rate 92, BUN/Creatinine Ratio 16, Glucose Level 202H, Calcium Level 9.0, Corrected Calcium 9.6, Total Bilirubin 0.6, Aspartate Amino Transf (AST/SGOT) 7, Alanine Aminotransferase (ALT/SGPT) 8, Alkaline Phosphatase 44, Total Protein 6.2L, Albumin 3.2 10/14/21 06:25: White Blood Count 8.3, Red Blood Count 3.15L, Hemoglobin 8.4L, Hematocrit 28L, Mean Corpuscular Volume 90, Mean Corpuscular Hemoglobin 27, Mean Corpuscular Hemoglobin Concent 30L, Red Cell Distribution Width 17.4H, Platelet Count 249, Mean Platelet Volume 8.8L, Immature Granulocyte % (Auto) 1, Neutrophils (%) (Auto) 92H, Lymphocytes (%) (Auto) 4L, Monocytes (%) (Auto) 3, Eosinophils (%) (Auto) 0, Basophils (%) (Auto) 0, Neutrophils # (Auto) 7.6, Lymphocytes # (Auto) 0.4L, Monocytes # (Auto) 0.3, Eosinophils # (Auto) 0.0, Basophils # (Auto) 0.0, Immature Granulocyte # (Auto) 0.1 10/14/21 11:06: Glucometer 147H Microbiology 10/11/21 Urine Culture - Final, Complete NO GROWTH 10/11/21 Blood Culture - Preliminary, Resulted No growth Laboratory Tests 10/13/21 11:01 10/14/21 06:15 10/14/21 06:25 A/P: Assessment: Acute on chronic respiratory failure, likely multi-factorial d/t reasons noted b elow Acute exacerbation of COPD - managed per medical services Obesity hypoventilation syndrome Atrial fibrillation, chronic - rate controlled - OAC with Eliquis - Echocardiogram was done in November [address] Hassan as ejection fraction 50 to 55%. Mild dilatation of the left atrium Diabetes mellitus - followed and managed by primary care physician Hyperlipidemia - followed by PCP as out pt Plan: Continue current cardiac regimen including OAC for stroke prophylaxis - this has been placed on hold per medical services in anticipation of dental surgery on Mo Oct 18. We advise OAC only be held for 48 hours prior to procedure d/t risk of stroke and resumed COURT following procedure if deemed surgically safe. Her risk for non-cardiac procedure is deemed as intermediate. Monitor lab closely BEV HASSAN MD FACP [facility] Oct 14, 2021 12:10
[2021-10-14] MEDS: predniSONE 20 MG TAB PO SCH (12:58)
[2021-10-14] MEDS ORDERED: PATIENT MAY USE OWN MED,SINGLE MED PO SCH (17:00)
[2021-10-14] MEDS ORDERED: PATIENT MAY USE OWN MED,SINGLE MED OP PRN (17:30)
[2021-10-14] MEDS: MONTELUKAST 10 MG (SINGULAIR) TAB PO SCH (21:02)
[2021-10-14] MEDS: [UNRECOGNIZED DRUG - REMARK] OU SCH ×3 (21:03→23:03)
[2021-10-14] MEDS: LIDOCAINE PATCH REMOVAL TP SCH (21:03)
[2021-10-15 00:40] VITALS: BP 147/67
[2021-10-15] MEDS: RT-ALBUTEROL/IPRATROPIUM 3 ML (DUONEB) VIAL INH SCH ×4 (03:15→14:34)
[2021-10-15 04:14] VITALS: BP 139/89
[2021-10-15] MEDS: CEFEPIME INJECTION 1,000 MG in NS (IVPB) 50 ML IV SCH ×2 (05:15→10:01)
[2021-10-15] MEDS: GLIMEPIRIDE 4 MG (AMARYL) TAB PO SCH (05:51)
[2021-10-15] MEDS: LEVOTHYROXINE 25 MCG (LEVOTHROID) TAB PO SCH (05:51)
[2021-10-15] MEDS: predniSONE 20 MG TAB PO SCH (05:51)
[2021-10-15 05:56] LABS: BASOPHILS % (AUTO) 0 % (0-10); EOSINOPHILS % (AUTO) 0 % (0-10); HEMATOCRIT 33 % (35-52); HEMOGLOBIN 9.2 g/dL (11.5-16.0); LYMPHOCYTES # (AUTO) 1.2 10^3/uL (1.0-4.0); LYMPHOCYTES % (AUTO) 15 % (12-44); MEAN CORPUSCULAR HEMOGLOBIN 26 pg (25-34); MEAN CORPUSCULAR HGB CONC 28 g/dL (32-36); MEAN CORPUSCULAR VOLUME 92 fL (80-99); MEAN PLATELET VOLUME 8.8 fL (9.0-12.2); MONOCYTES # (AUTO) 0.7 10^3/uL (0.0-1.0); MONOCYTES % (AUTO) 9 % (0-12); NEUTROPHILS # (AUTO) 5.9 10^3/uL (1.8-7.8); NEUTROPHILS % (AUTO) 75 % (42-75); PLATELET COUNT 286 10^3/uL (130-400); WHITE BLOOD COUNT 7.8 10^3/uL (4.3-11.0)
[2021-10-15] MEDS: inSUlin ASPART (NovoLOG) 1 UNIT/0.01 ML (CHARGE PER UNIT) SC SCH ×2 (06:00→11:03)
[2021-10-15 06:19] LABS: ALBUMIN 3.5 GM/DL (3.2-4.5); BILIRUBIN,TOTAL 0.7 MG/DL (0.1-1.0); CALCIUM 9.5 MG/DL (8.5-10.1); CREATININE SERUM 0.64 MG/DL (0.60-1.30); POTASSIUM 3.2 MMOL/L (3.6-5.0); TOTAL PROTEIN 6.7 GM/DL (6.4-8.2)
[2021-10-15 07:53] VITALS: BP 142/67
[2021-10-15] MEDS ORDERED: KCL 20 MEQ TAB (K-DUR) PO NR (09:35)
[2021-10-15] MEDS: IRON SUCROSE 200 MG/10 ML (VENOFER) VIAL IV SCH (09:43)
[2021-10-15] MEDS: FUROSEMIDE 40 MG (LASIX) TAB PO SCH (09:49)
[2021-10-15] MEDS: LORATADINE (CLARITIN) 10 MG TAB PO SCH (09:49)
[2021-10-15] MEDS: DOCUSATE SODIUM 100 MG (COLACE) CAP PO SCH (09:49)
[2021-10-15] MEDS: ISOSORBIDE MONONITRATE 60 MG (IMDUR) TAB PO SCH (09:50)
[2021-10-15] MEDS: KCL 10 MEQ TAB (MICRO K) PO SCH (09:50)
[2021-10-15] MEDS: LIDOCAINE 4% (SALONPAS) PATCH TOP SCH (09:51)
[2021-10-15] MEDS: PANTOPRAZOLE 20 MG TABLET (PROTONIX) PO SCH (09:51)
[2021-10-15] MEDS: metFORMIN 500 MG (GLUCOPHAGE) TAB PO SCH (09:51)
[2021-10-15] MEDS: lamoTRIgine 25 MG (LaMICtal) TAB PO SCH (09:51)
[2021-10-15] MEDS: SENNOSIDES 8.6 MG (SENOKOT) TAB PO SCH (09:51)
--- NOTE | 2021-10-15 09:55 | Progress Note - Cardiology ---
Cardiology SOAP Progress Note Subjective: Sitting up in recliner at the bedside States she feels good today States she is going home today No c/o CP, SOB or palpitations Objective: I&O/Vital Signs 10/14/21 10/15/21 10/15/21 10/15/21 22:32 00:40 03:15 04:14 Temp 36.2 36.2 Pulse 75 78 Resp 20 22 B/P (MAP) 147/67 (93) 139/89 (106) Pulse Ox 97 94 90 95 O2 Delivery High Flow N/C Nasal Cannula High Flow N/C Nasal Cannula O2 Flow Rate 5.00 5.00 5.00 5.00 10/15/21 07:53 Temp 36.9 Pulse 84 Resp 20 B/P (MAP) 142/67 (92) Pulse Ox 96 O2 Delivery Nasal Cannula O2 Flow Rate 5.00 10/15/21 00:00 Intake Total 1992 ml Output Total 2350 ml Balance -358 ml Weight (Pounds): 256 Weight (Ounces): 1.0 Weight (Calculated Kilograms): 116.093588 Constitutional: AAO x 3, well-developed, well-nourished Respiratory: No accessory muscle use, No respiratory distress; chest expansion is symmetric, chest is bilaterally symmetric, other (diminished bases) Cardiovascular: irregularly irregular; No JVD; S1 and S2 Gastrointestional: No tender; soft, audible bowel sounds Extremities: swelling (mild, bilat leg swelling); No clubbing, No cyanosis Neurologic/Psychiatric: other (moves all limbs equally) Skin: No rash on exposed areas, No ulcerations on exposed areas Results/Procedures: Labs Laboratory Tests 10/14/21 11:06: Glucometer 147H 10/14/21 16:03: Glucometer 102 10/14/21 20:09: Glucometer 138H 10/15/21 05:25: White Blood Count 7.8, Red Blood Count 3.55L, Hemoglobin 9.2L, Hematocrit 33L, Mean Corpuscular Volume 92, Mean Corpuscular Hemoglobin 26, Mean Corpuscular Hemoglobin Concent 28L, Red Cell Distribution Width 17.5H, Platelet Count 286, Mean Platelet Volume 8.8L, Immature Granulocyte % (Auto) 1, Neutrophils (%) (Auto) 75, Lymphocytes (%) (Auto) 15, Monocytes (%) (Auto) 9, Eosinophils (%) (Auto) 0, Basophils (%) (Auto) 0, Neutrophils # (Auto) 5.9, Lymphocytes # (Auto) 1.2, Monocytes # (Auto) 0.7, Eosinophils # (Auto) 0.0, Basophils # (Auto) 0.0, Immature Granulocyte # (Auto) 0.1, Sodium Level 139, Potassium Level 3.2L, Chloride Level 82L, Carbon Dioxide Level 43H, Anion Gap 14, Blood Urea Nitrogen 10, Creatinine 0.64, Estimat Glomerular Filtration Rate 96, BUN/Creatinine Ratio 16, Glucose Level 71, Calcium Level 9.5, Corrected Calcium 9.9, Total Bilirubin 0.7, Aspartate Amino Transf (AST/SGOT) 13, Alanine Aminotransferase (ALT/SGPT) 17, Alkaline Phosphatase 42, Total Protein 6.7, Albumin 3.5 10/15/21 05:32: Glucometer 63L 10/15/21 06:52: Glucometer 119H Microbiology 10/11/21 Urine Culture - Final, Complete NO GROWTH 10/11/21 Blood Culture - Preliminary, Resulted No growth Laboratory Tests 10/13/21 11:01 10/14/21 06:15 10/14/21 06:25 10/15/21 05:25 A/P: Assessment: Acute on chronic respiratory failure, likely multi-factorial d/t reasons noted below Acute exacerbation of COPD - managed per medical services Obesity hypoventilation syndrome Atrial fibrillation, chronic - rate controlled - OAC with Eliquis - Echocardiogram was done in November [address] Hassan as ejection fraction 50 to 55%. Mild dilatation of the left atrium Diabetes mellitus - followed and managed by primary care physician Hyperlipidemia - followed by PCP as out pt Plan: Continue current cardiac regimen including OAC for stroke prophylaxis - this has been placed on hold per medical services in anticipation of dental surgery on Monday, Oct 18. We advise OAC only be held for 48 hours prior to procedure d/t risk of stroke and resumed COURT following procedure if deemed surgically safe. Her risk for non-cardiac procedure is deemed as intermediate. Monitor lab closely Advise out pt f/u NIKOLAI STEVENSON Oct 15, 2021 09:55
[2021-10-15 11:45] VITALS: BP 151/91
[2021-10-15] MEDS ORDERED: PRED10TA22 PO (12:31)
[2021-10-15] MEDS ORDERED: OXC5T PO (12:31)
[2021-10-15] MEDS ORDERED: CEFD300C3 PO (12:31)
--- NOTE | 2021-10-15 12:33 | Discharge Summary ---
Discharge Summary Hospital Course Was the Problem List Reviewed?: Yes Problems/Dx: (1) COPD exacerbation Status: Acute (2) Hyponatremia Status: Acute (3) Atrial fibrillation Status: Acute Qualifiers: Qualified Codes: I48.20 - Chronic atrial fibrillation, unspecified (4) Acute respiratory failure Status: Resolved Hospital Course Date of Admission: Oct 11, 2021 at 16:38 Admission Diagnosis : Family Physician/Provider: Landy Michaud MD Date of Discharge: 10/15/21 Discharge Diagnosis: Acute on chronic respiratory failure, obesity hypoventilation syndrome, morbid obesity BMI 46 Hospital Course: Brief Hospital Course: Patient was admitted on 10/11/2021 for acute COPD exacerbation and discharged on 10/15/2021 at relative baseline. Patient arrived to ED on 10/11/2021. At presentation her hemoglobin was 9.4, ABG 7.34/95/86, Na 123, Cl 68, CO2 48, CRP 0.92, lactic acid 0.72, and blood glucose 130. Chest x- ray on presentation displayed marked cardiomegaly with central vascular congestion and interstitial edema with worsening bibasilar alveolar infiltrates. ECG was significant for atrial fibrillation. Patient was admitted with Medicine and Cardiology following. Treatments of Cefepime, Solu-medrol, Albuterol/Iprat ropium, and supplemental oxygen were initiated. BiPAP therapy was also initiated while sleeping. Echocardiogram results: Left ventricle: mild concentric hypertrophy, EF is 60-65%, grade 2 diastolic dysfunction present. Right ventricle: systolic function moderately reduced. Left atrium: mildly dilated at 4.1cm. Right atrium: dilated. Aortic valve: thickening, consistent with scleros is. Pulmonary artery pressure estimated at 45-50%. On 10/12/2021 patient's iron level was 15.0, Venofer infusions were initiated at five doses of 200mg Q48H. Repeated ECGs continued to be significant for atrial fibrillation. Patient's home regimen of oral anti-coagulation with Eliquis 5mg was resumed. Throughout hospital course patient's supplemental oxygen requirements were weaned. On 10/13/2021, Cefepime, Solu-medrol, and Albuterol/Ipratropium were continued with addition of Claritin and Singulair for COPD exacerbation management. Patient's home medication of Furosemide 40mg was also resumed. Throughout the hospital stay, the patient's type 2 diabetes was managed with an Insulin Aspart sliding scale, Linagliptin, Metformin, and Glimeperide. Stool softeners were available PRN. Toward the end of the patient's hospital stay, she required approximately 5.0L of supplemental oxygen when utilizing nasal cannula. On 10/15/2021 patient's K was 3.2, 20meq KCl PO were administered prior to discharge. Patient was discharged with Prednisone 40mg, Singulair, and Claritin for COPD management. Arrangements were made to have a BiPAP sent to patient's home. This summary does not include the entirety of the patient's visit and is only a short description of pertinent information regarding the patient's care. Full description of the patient's stay is accessible in the patient's entire chart. Date of admission: 10/11/2021 Date of discharge: 10/15/2021 Attending physician: Dr. Nova Acharya Admission diagnosis: COPD exacerbation, respiratory acidosis, BMI of 45.7, debility Discharge diagnosis: COPD exacerbation, respiratory acidosis, BMI of 45.7, debility, pulmonary hypertension Secondary diagnoses: Artial fibrillation, type 2 diabetes mellitus, dementia, arthritis, sleep apnea Consultations: Cardiology Procedures: Echocardiogram CHLOE GALICIA Oct 15, 2021 15:18 Labs and Pending Lab Test: Laboratory Tests 10/14/21 16:03: Glucometer 102 10/14/21 20:09: Glucometer 138H 10/15/21 05:25: White Blood Count 7.8, Red Blood Count 3.55L, Hemoglobin 9.2L, Hematocrit 33L, Mean Corpuscular Volume 92, Mean Corpuscular Hemoglobin 26, Mean Corpuscular Hemoglobin Concent 28L, Red Cell Distribution Width 17.5H, Platelet Count 286, Mean Platelet Volume 8.8L, Immature Granulocyte % (Auto) 1, Neutrophils (%) (Auto) 75, Lymphocytes (%) (Auto) 15, Monocytes (%) (Auto) 9, Eosinophils (%) (Auto) 0, Basophils (%) (Auto) 0, Neutrophils # (Auto) 5.9, Lymphocytes # (Auto) 1.2, Monocytes # (Auto) 0.7, Eosinophils # (Auto) 0.0, Basophils # (Auto) 0.0, Immature Granulocyte # (Auto) 0.1, Sodium Level 139, Potassium Level 3.2L, Chloride Level 82L, Carbon Dioxide Level 43H, Anion Gap 14, Blood Urea Nitrogen 10, Creatinine 0.64, Estimat Glomerular Filtration Rate 96, BUN/Creatinine Ratio 16, Glucose Level 71, Calcium Level 9.5, Corrected Calcium 9.9, Total Bilirubin 0.7, Aspartate Amino Transf (AST/SGOT) 13, Alanine Aminotransferase (ALT/SGPT) 17, Alkaline Phosphatase 42, Total Protein 6.7, Albumin 3.5 10/15/21 05:32: Glucometer 63L 10/15/21 06:52: Glucometer 119H 10/15/21 11:01: Glucometer 63L Microbiology 10/11/21 Urine Culture - Final, Complete NO GROWTH 10/11/21 Blood Culture - Preliminary, Resulted No growth Home Meds Active Cefdinir 300 Mg Capsule 300 Mg PO BID Prednisone 10 Mg Tab.ds.pk 10 Mg PO DAILY Take 4 tabs(40mg) once daily,decrease by 1 tab(10MG)daily. Oxyir Tablet (Oxycodone HCl) 5 Mg Tab 5 Mg PO Q4HR PRN Reported Jennifer Allergy (Fexofenadine HCl) 180 Mg Tablet 180 Mg PO DAILY Hydroxyzine Pamoate 50 Mg Capsule 50 Mg PO DAILY PRN Olopatadine HCl 2.5 Ml Drops 1 Drop OU HS Lidocaine 5% Patch (Lidocaine) 1 Each Adh..patch 1 Pat TD DAILY APPLY TO LEFT SHOULDER- REMOVE AFTER 12 HOURS Isosorbide Mononitrate ER (Isosorbide Mononitrate) 60 Mg Tab 60 Mg PO DAILY Pantoprazole Sodium 20 Mg Tablet.dr 20 Mg PO DAILY Furosemide 40 Mg Tablet 40 Mg PO DAILY Glimepiride 4 Mg Tablet 4 Mg PO DAILY K-Tab ER (Potassium Chloride) 10 Meq Tablet.er 20 Meq PO BID TAKES 2 (10 MEQ) TABLETS Eliquis (Apixaban) 5 Mg Tablet 5 Mg PO BID Metformin HCl 500 Mg Tablet 500 Mg PO BID Ventolin Hfa (Albuterol Sulfate) 18 Gm Hfa.aer.ad 2 Puff INH QID PRN Levothyroxine Sodium 25 Mcg Tablet 25 Mcg PO DAILY Januvia (Sitagliptin Phosphate) 100 Mg Tablet 100 Mg PO DAILY Aripiprazole 15 Mg Tablet 15 Mg PO DAILY Zafirlukast 20 Mg Tablet 20 Mg PO BID Lamotrigine 25 Mg Tablet 25 Mg PO BID Assessment/Pt Instructions PCP in [address] Truong Discharge Planning: <30 minutes discharge planning Discharge Instructions Discharge Diet: ADA Diet Activity as Tolerated: Yes Discharge Physical Examination Vital Signs Vital Signs Date Time Temp Pulse Resp B/P (MAP) Pulse Ox O2 Delivery O2 Flow Rate FiO2 10/15/21 11:45 37.1 89 22 151/91 (111) 94 Nasal Cannula 5.00 10/12/21 06:27 45 General Appearance: No Apparent Distress, WD/WN, Chronically ill, Obese Respiratory: Lungs Clear, Normal Breath Sounds Cardiovascular: Regular Rate, Rhythm Neurologic/Psychiatric: Alert, Oriented x3, No Motor/Sensory Deficits, Normal Mood/Affect Allergies: Coded Allergies: clarithromycin (Verified Allergy, Unknown, 11/18/18) moxifloxacin (Verified Allergy, Unknown, 11/18/18) nitrofurantoin (Verified Allergy, Unknown, 11/18/18) penicillin G (Verified Allergy, Unknown, Pt has received Omnicef & cephalexin in the past, 11/19/18) Pt has received Omnicef & cephalexin in the past (from External med history) sulfacetamide (Verified Allergy, Unknown, 11/18/18) trazodone (Verified Allergy, Unknown, 11/18/18) Discharge Summary Date of Admission Oct 11, 2021 at 16:38 Date of Discharge Discharge Date: Oct 15, 2021 Admission Diagnosis Assessment: Acute on chronic respiratory failure MANNY on biPAP non-compliant Morbid obesity AF Edema Smoker AECOPD Plan: Monitor closely O2 BiPAP Discharge Diagnosis Assessment: COPD exacerbation Respiratory acidosis Atrial fibrillation BMI of 45.7 Debility T2DM Dementia Pulmonary hypertension Arthritis Iron deficiency anemia Hypercapnia, likely due to COPD Sleep apnea PLan: DC tomorrow BiPAP (1) COPD exacerbation Status: Acute (2) Hyponatremia Status: Acute (3) Atrial fibrillation Status: Acute Qualifiers: Qualified Codes: I48.20 - Chronic atrial fibrillation, unspecified (4) Acute respiratory failure Status: Resolved NOVA ACHARYA DO Oct 15, 2021 12:33
[2021-10-15 14:53] VITALS: BP 151/91
--- NOTE | 2021-10-15 15:18 | Progress Note ---
CHLOE GALICIA 10/15/21 1518: Progress Note Brief Hospital Course: Patient was admitted on 10/11/2021 for acute COPD exacerbation and discharged on 10/15/2021 at relative baseline. Patient arrived to ED on 10/11/2021. At presentation her hemoglobin was 9.4, ABG 7.34/95/86, Na 123, Cl 68, CO2 48, CRP 0.92, lactic acid 0.72, and blood glucose 130. Chest x- ray on presentation displayed marked cardiomegaly with central vascular congestion and interstitial edema with worsening bibasilar alveolar infiltrates. ECG was significant for atrial fibrillation. Patient was admitted with Medicine and Cardiology following. Treatments of Cefepime, Solu-medrol, Albuterol/Ipratropium, and supplemental oxygen were initiated. BiPAP therapy was also initiated while sleeping. Echocardiogram results: Left ventricle: mild concentric hypertrophy, EF is 60-65%, grade 2 diastolic dysfunction present. Right ventricle: systolic function moderately reduced. Left atrium: mildly dilated at 4.1cm. Right atrium: dilated. Aortic valve: thickening, consistent with sclerosis. Pulmonary artery pressure estimated at 45-50%. On 10/12/2021 patient's iron level was 15.0, Venofer infusions were initiated at five doses of 200mg Q48H. Repeated ECGs continued to be significant for atrial fibrillation. Patient's home regimen of oral anti-coagulation with Eliquis 5mg was resumed. Throughout hospital course patient's supplemental oxygen requirements were weaned. On 10/13/2021, Cefepime, Solu-medrol, and Albuterol/Ipratropium were continued with addition of Claritin and Singulair for COPD exacerbation management. Patient's home medication of Furosemide 40mg was also resumed. Throughout the hospital stay, the patient's type 2 diabetes was managed with an Insulin Aspart sliding scale, Linagliptin, Metformin, and Glimeperide. Stool softeners were available PRN. Toward the end of the patient's hospital stay, she required approximately 5.0L of supplemental oxygen when utilizing nasal cannula. On 10/15/2021 patient's K was 3.2, 20meq KCl PO were administered prior to discharge. Patient was discharged with Prednisone 40mg, Singulair, and Claritin for COPD management. Arrangements were made to have a BiPAP sent to patient's home. This summary does not include the entirety of the patient's visit and is only a short description of pertinent information regarding the patient's care. Full description of the patient's stay is accessible in the patient's entire chart. Date of admission: 10/11/2021 Date of discharge: 10/15/2021 Attending physician: Dr. Nova Posada Admission diagnosis: COPD exacerbation, respiratory acidosis, BMI of 45.7, debility Discharge diagnosis: COPD exacerbation, respiratory acidosis, BMI of 45.7, debility, pulmonary hypertension Secondary diagnoses: Artial fibrillation, type 2 diabetes mellitus, dementia, arthritis, sleep apnea Consultations: Cardiology Procedures: Echocardiogram NOVA POSADA DO 10/16/21 0530: Supervisory-Addendum Brief Verification & Attestation Participated in pt care: history, MDM, physical Personally performed: exam, history, MDM, supervision of care Care discussed with: Medical Student Procedures: n/a Results interpretation: Verified all documentation Verification and Attestation of Medical Student E/M Service A medical student performed and documented this service in my presence. I reviewed and verified all information documented by the medical student and made modifications to such information, when appropriate. I personally performed the physical exam and medical decision making. Nova Posada, Oct 16, 2021,05:30 CHLOE GALICIA Oct 15, 2021 15:18 NOVA POSADA DO Oct 16, 2021 05:30
== END 2021-10-15 14:40 | disposition home or self-care (01) | DRG 189 ==
LOC: EDUNIT# 11:17 → ER 11:19 → CSD 16:38 → UNDOADMIN 16:38 → 4TH 10-12 12:48
PROVIDERS: ADMIT Internal Medicine; ATTEND Internal Medicine
PROC: 5A09357 Assistance with Respiratory Ventilation, Less than 24 Consecutive Hours, Continuous Positive Airway Pressure (ICD-10-PCS; principal; 2021-10-11)
DX: J96.21 Acute and chronic respiratory failure with hypoxia (principal); J44.1 Chronic obstructive pulmonary disease with (acute) exacerbation; E87.2 Acidosis; E87.1 Hypo-osmolality and hyponatremia; I48.20 Chronic atrial fibrillation, unspecified; E66.2 Morbid (severe) obesity with alveolar hypoventilation; Z68.42 Body mass index [BMI] 45.0-49.9, adult; J96.22 Acute and chronic respiratory failure with hypercapnia; E87.8 Other disorders of electrolyte and fluid balance, not elsewhere classified; Z79.01 Long term (current) use of anticoagulants; I10 Essential (primary) hypertension; F03.90 Unspecified dementia, unspecified severity, without behavioral disturbance, psychotic disturbance, mood disturbance, and anxiety; K21.9 Gastro-esophageal reflux disease without esophagitis; E78.5 Hyperlipidemia, unspecified; I27.20 Pulmonary hypertension, unspecified; E11.649 Type 2 diabetes mellitus with hypoglycemia without coma; M19.91 Primary osteoarthritis, unspecified site; F17.210 Nicotine dependence, cigarettes, uncomplicated; Z79.84 Long term (current) use of oral hypoglycemic drugs; Z79.52 Long term (current) use of systemic steroids; D50.9 Iron deficiency anemia, unspecified; Z88.1 Allergy status to other antibiotic agents; Z88.0 Allergy status to penicillin; Z88.8 Allergy status to other drugs, medicaments and biological substances
CPT/HCPCS: 36410; 36415; 51702; 71045; 76937; 80053; 81000; 82607; 82805; 82947; 83540; 83605; 83880; 84145; 84484; 85007; 85025; 85027; 85610; 85730; 86141; 87040; 87088; 87636; 93005; 93306; 94640; 94660; 94760

== ENCOUNTER 2021-11-04 00:33 | Inpatient (IN) | payer MEDICARE ==
[~2021-11-04] VITALS: Ht 162.6 cm; Wt 114.0 kg
[~2021-11-04 00:33] MED LIST changes: +CEFD300C3 PO; +FEXO180T84 PO; +FURO40TA4 PO; +HYDR50CA3 PO; +LIDO700A45 TD; +OLOP2.5D16 OU; +OXC5T PO; +PANT20TA18 PO
[2021-11-04] MEDS ORDERED: DEXTROSE 50% 50 ML (IMS) SYR ONE ×3 (00:55→10:46)
[2021-11-04] MEDS ORDERED: DEXTROSE 50% 50 ML (IMS) SYR IV ONE ×6 (01:00→10:45)
--- NOTE | 2021-11-04 01:04 | ED General ---
General Chief Complaint: Glucose Problems Stated Complaint: LOW BLOOD SUGAR Source of Information: Patient (LIMITED HISTORIAN), EMS, Old Records History of Present Illness Date Seen by Provider: Nov 04, 2021 Time Seen by Provider: 00:34 Initial Comments PT ARRIVES VIA EMS FROM HOME EMS REPORT THAT THEY WERE CALLED BY THE PATIENT, FOR "LIFT ASSIST" PT LIVES ALONE, AND HAS LIMITED MOBILITY--USES A WALKER AND A POWER WHEELCHAIR. PT WAS FOUND SITTING IN HER POWER WHEELCHAIR AND FOUND TO BE OBTUNDED--EMS REPORT THERE WAS NO EVIDENCE OF A FALL. BLOOD GLUCOSE WAS LESS THAN 20/UNREADABLE BY EMS EMS GAVE D10 AND BLOOD GLUCOSE UP TO 116, AND PT WAS AWAKE AND TALKING INITIAL O2 SAT WAS 68%, BUT HANDS WERE EXTREMELY COLD, PER EMS PT HAS COPD/ CHRONIC RESPIRATORY FAILURE, AND IS MAINTAINED ON O2 AT 5L/NC CONTINUOUSLY O2 SATS UP TO 90% ON NRB AT 10 L ON ARRIVAL, PT IS AWAKE BUT LETHARGIC. PT IS ORIENTED TO PLACE AND TIME, BUT DOES NOT RECALL EVENTS PRIOR TO CALLING EMS, AND DOES NOT REMEMBER CALLING EMS. PT C/O LOW BACK PAIN, WHICH SHE STATES IS CHRONIC AND IS NO WORSE THAN NORMAL SHE DOES C/O LEFT RIB/LEFT ABDOMEN PAIN--STATES SHE FELL A FEW DAYS AGO AND HURT HER RIBS, BUT CANNOT GIVE DETAILS OTHER THAN THAT PT IS SUPPOSED TO BE TAKING ELIQUIS PT DENIES CHEST PAIN DENIES SHORTNESS OF BREATH OR PAIN WITH BREATHING DENIES HEADACHE DENIES NAUSEA OR VOMITING. STATES SHE ALWAYS HAS A LITTLE DIARRHEA DENIES ANY URINARY SYMPTOMS DENIES FEVER DENIES COUGH DENIES PARESTHESIAS OR MOTOR DEFICITS PT HAS HAD 1 COVID-19 VACCINE--LEDY & LEDY, NO BOOSTER HAS NOT HAD FLU VACCINE. PT WAS ADMITTED HERE 10/11-10/15/21 FOR COPD EXACERBATION, CHF, CHRONIC ATRIAL FIBRILLATION. WAS FOUND TO BY HYPOGLYCEMIC ON ARRIVAL AT THAT VISIT WELL. PT WAS DISMISSED ON PREDNISONE, SINGULAIR AND CLARITIN. ALL OF HER OTHER MEDICATIONS WERE CONTINUED PT HAS ALSO BEEN PRESCRIBED HOME BIPAP. IS UNKNOWN IF SHE HAS BEEN USING IT. PT STATES SHE HAS NOT SEEN HER DR "IN A LONG TIME" --SEES DR. COOK. PT HAS ALSO HAD PREVIOUS ADMITS/ VISITS TO [facility] EMS STAFF ARE VERY FAMILIAR WITH PATIENT, THEY ARE CALLED FREQUENTLY FOR LIFT ASSIST, TRANSPORT TO ER, ETC. THEY REPORT THEY WERE THERE A COUPLE OF DAYS AGO FOR LIFT ASSIST AND BLOOD GLUCOSE WAS 35, BUT PT WAS AWAKE AND ORIENTED AND ADAMANTLY REFUSED TRANSPORT. PCP: DR. COOK Allergies and Home Medications Allergies Coded Allergies: clarithromycin (Verified Allergy, Unknown, 11/18/18) moxifloxacin (Verified Allergy, Unknown, 11/18/18) nitrofurantoin (Verified Allergy, Unknown, 11/18/18) penicillin G (Verified Allergy, Unknown, Pt has received Omnicef & cephalexin in the past, 11/19/18) Pt has received Omnicef & cephalexin in the past (from External med history) sulfacetamide (Verified Allergy, Unknown, 11/18/18) trazodone (Verified Allergy, Unknown, 11/18/18) Patient Home Medication List Home Medication List Reviewed: Yes Albuterol Sulfate (Ventolin Hfa) 18 Gm Hfa.aer.ad, 2 PUFF INH QID PRN for SHORTNESS OF BREATH, (Reported) Entered as Reported by: RICKI MCCORMACK on 11/19/18 1120 Apixaban (Eliquis) 5 Mg Tablet, 5 MG PO BID, (Reported) Entered as Reported by: ADEN CALDWELL on 11/30/20 1623 Aripiprazole (Aripiprazole) 15 Mg Tablet, 15 MG PO DAILY, (Reported) Entered as Reported by: RICKI MCCORMACK on 11/19/18 1049 Cefdinir (Cefdinir) 300 Mg Capsule, 300 MG PO BID Prescribed by: LISA ACHARYA on 10/15/21 1231 Fexofenadine HCl (Jennifer Allergy) 180 Mg Tablet, 180 MG PO DAILY, (Reported) Entered as Reported by: FRANCIA MARIE on 10/12/21 1402 Furosemide (Furosemide) 40 Mg Tablet, 40 MG PO DAILY, (Reported) Entered as Reported by: FRANCIA MARIE on 10/12/21 1402 Glimepiride (Glimepiride) 4 Mg Tablet, 4 MG PO DAILY, (Reported) Entered as Reported by: ADEN CALDWELL on 11/30/20 1623 Hydroxyzine Pamoate (Hydroxyzine Pamoate) 50 Mg Capsule, 50 MG PO DAILY PRN for ANXIETY, (Reported) Entered as Reported by: FRANCIA MARIE on 10/12/21 1402 Isosorbide Mononitrate (Isosorbide Mononitrate ER) 60 Mg Tab, 60 MG PO DAILY, (Reported) Entered as Reported by: FRANCIA MARIE on 10/12/21 1402 Lamotrigine (Lamotrigine) 25 Mg Tablet, 25 MG PO BID, (Reported) Entered as Reported by: RICKI MCCORMACK on 11/19/18 1049 Levothyroxine Sodium (Levothyroxine Sodium) 25 Mcg Tablet, 25 MCG PO DAILY, (Reported) Entered as Reported by: RICKI MCCORMACK on 11/19/18 1049 Lidocaine (Lidocaine 5% Patch) 1 Each Adh..patch, 1 PAT TD DAILY, (Reported) Entered as Reported by: FRANCIA MARIE on 10/12/21 1402 Metformin HCl (Metformin HCl) 500 Mg Tablet, 500 MG PO BID, (Reported) Entered as Reported by: RICKI MCCORMACK on 11/19/18 1120 Olopatadine HCl (Olopatadine HCl) 2.5 Ml Drops, 1 DROP OU HS, (Reported) Entered as Reported by: FRANCIA MARIE on 10/12/21 1402 Oxycodone Hcl (Oxyir Tablet) 5 Mg Tab, 5 MG PO Q4HR PRN for PAIN-SEE DOSE INSTRUCTIONS Prescribed by: LISA ACHARYA on 10/15/21 1232 Pantoprazole Sodium (Pantoprazole Sodium) 20 Mg Tablet.dr, 20 MG PO DAILY, (Reported) Entered as Reported by: FRANCIA MARIE on 10/12/21 1402 Potassium Chloride (K-Tab ER) 10 Meq Tablet.er, 20 MEQ PO BID, (Reported) Entered as Reported by: ADEN CALDWELL on 11/30/20 1623 Prednisone (Prednisone) 10 Mg Tab.ds.pk, 10 MG PO DAILY Prescribed by: LISA ACHARYA on 10/15/21 1231 Sitagliptin Phosphate (Januvia) 100 Mg Tablet, 100 MG PO DAILY, (Reported) Entered as Reported by: RICKI MCCORMACK on 11/19/18 1049 Zafirlukast (Zafirlukast) 20 Mg Tablet, 20 MG PO BID, (Reported) Entered as Reported by: RICKI MCCORMACK on 11/19/18 1049 Review of Systems Review of Systems Constitutional: malaise, weakness Respiratory: see HPI Cardiovascular: no symptoms reported Gastrointestinal: see HPI Genitourinary: no symptoms reported (PT WEARING BRIEFS) Musculoskeletal: see HPI Skin: no symptoms reported Psychiatric/Neurological: See HPI Hematologic/Lymphatic: No Symptoms Reported Immunological/Allergic: no symptoms reported Past Fgramlm-Txkcuo-Ieldiz Hx Patient Social History Tobacco Use?: Yes (SMOKED 2 PPD, QUIT > 10 YEARS AGO) Tobacco type used: Cigarettes Smoking Status: Former Smoker Smokeless Tobacco Frequency: Never a User Use of E-Cig and/or Vaping dev: No Use of E-Cig and/or Vaping Edgar: Never a User Substance use?: No Alcohol Use?: No Immunizations Up To Date First/Initial COVID19 Vaccinat: 2020 COVID19 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: [employer] Past Medical History Surgeries: Yes (HERNIA REPAIR) Abdominal, Section, Gallbladder, Hysterectomy, Tonsillectomy Respiratory: Yes (RESPIRATORY FAILURE;OBESITY HYPOVENTILATION;O2 AT 5L/NC CONTINUOUSLY) Sleep Apnea, COPD Currently Using CPAP: No Currently Using BIPAP: Yes (uses at night) Cardiac: Yes (CHF) Atrial Fibrillation, Chronic Edema/Swelling, High Cholesterol, Hypertension Neurological: Yes Dementia 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 Physical Exam Vital Signs Vital Signs - First Documented 11/04/21 00:35 Temp 35.5 Pulse 79 Resp 18 B/P (MAP) 137/82 (100) Pulse Ox 97 O2 Delivery Nasal Cannula O2 Flow Rate 5.00 Capillary Refill : Height, Weight, BMI Height: 5'4.00" Weight: 256lbs. 1.0oz. 116.992826ot; 45.71 BMI Method: General Appearance: Obese (MORBIDLY), Other (LETHARGIC, BUT ABLE TO ANSWER ALL QUESTIONS, SPEECH THICK-TONGUED AND SOMEWHAT MUMBLED AT TIMES. FILTHY, VERY UNKEMPT--WEARING A VERY DIRTY SHIRT, WITH MULITPLE RIPS/TEARS IN IT. ONLY WEARING BRIEFS AND NO PANTS. NO SOCKS/SHOES. MALODOROUS.EXTREMELY POOR HYGIENE. ) HEENT: TMs Normal, Other (DRY ORAL MUCOSA. EDENTULOUS. NO EXTERNAL EVIDENCE OF TRAUMA TO HEAD) Neck: Normal Inspection, Non Tender Respiratory: Normal Breath Sounds, No Accessory Muscle Use, No Respiratory Distress, Other (TENDERNESS TO LEFT LOWER RIBS/CHEST WALL--ANTERIOR AND LATERALLY) Cardiovascular: No Murmur, Irregularly Irregular Gastrointestinal: Soft, Tenderness (LEFT UPPER QUADRANT AND LEFT MID ABDOMEN--NO EXTERNAL EVIDENCE OF TRAUMA TO ABDOMEN) Back: CVA Tenderness (L), Decreased Range of Motion Extremity: Pedal Edema (1+ BILATERALLY), Other (TENDERNESS AND BRUISING TO LEFT HIP) Neurologic/Psychiatric: Alert, No Motor/Sensory Deficits (GROSSLY INTACT), 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 ORIENTED TO PERSON AND PLACE, AND ABLE TO ANSWER QUESTIONS APPROPRIATELY. POOR MEMORY AND NO RECOLLECTION OF TONIGHT'S EVENTS. ) Skin: Normal Color, Warm/Dry Focused Exam Lactate Level 11/04/21 01:00: Lactic Acid Level 1.17 Lactic Acid Level Laboratory Tests Test 11/04/21 01:00 Lactic Acid Level 1.17 MMOL/L (0.50-2.00) Procedures/Interventions Date of ETT Placement: Nov 18, 2018 Time of ETT Placement: 1843 Progress/Results/Core Measures Suspected Sepsis SIRS Temperature: Pulse: Respiratory Rate: Laboratory Tests 11/04/21 00:45: White Blood Count 8.4 Blood Pressure / Mean: 11/04/21 01:00: Lactic Acid Level 1.17 Laboratory Tests 11/04/21 00:45: Creatinine 0.64, INR Comment 1.6H, Platelet Count 319, Total Bilirubin 0.8 Results/Orders Lab Results Laboratory Tests Test 11/04/21 00:43 11/04/21 00:45 11/04/21 00:50 11/04/21 00:52 Range/Units Influenza Type A Antigen NEGATIVE NEGATIVE Influenza Type B Antigen NEGATIVE NEGATIVE White Blood Count 8.4 4.3-11.0 10^3/uL Red Blood Count 3.86 3.80-5.11 10^6/uL Hemoglobin 10.4 L 11.5-16.0 g/dL Hematocrit 36 35-52 % Mean Corpuscular Volume 93 80-99 fL Mean Corpuscular Hemoglobin 27 25-34 pg Mean Corpuscular Hemoglobin Concent 29 L 32-36 g/dL Red Cell Distribution Width 18.0 H 10.0-14.5 % Platelet Count 319 130-400 10^3/uL Mean Platelet Volume 9.3 9.0-12.2 fL Immature Granulocyte % (Auto) 0 % Neutrophils (%) (Auto) 85 H 42-75 % Lymphocytes (%) (Auto) 7 L 12-44 % Monocytes (%) (Auto) 6 0-12 % Eosinophils (%) (Auto) 1 0-10 % Basophils (%) (Auto) 0 0-10 % Neutrophils # (Auto) 7.2 1.8-7.8 10^3/uL Lymphocytes # (Auto) 0.6 L 1.0-4.0 10^3/uL Monocytes # (Auto) 0.5 0.0-1.0 10^3/uL Eosinophils # (Auto) 0.1 0.0-0.3 10^3/uL Basophils # (Auto) 0.0 0.0-0.1 10^3/uL Immature Granulocyte # (Auto) 0.0 0.0-0.1 10^3/uL Neutrophils % (Manual) 81 % Lymphocytes % (Manual) 9 % Monocytes % (Manual) 8 % Eosinophils % (Manual) 1 % Atypical Lymphocytes 1 % Polychromasia SLIGHT Hypochromasia SLIGHT Microcytosis SLIGHT Erythrocyte Sedimentation Rate 88 H 0-30 MM/HR Prothrombin Time 19.1 H 12.2-14.7 SEC INR Comment 1.6 H 0.8-1.4 Activated Partial Thromboplast Time 37 H 24-35 SEC Sodium Level 134 L 135-145 MMOL/L Potassium Level 2.7 L 3.6-5.0 MMOL/L Chloride Level 74 L 98-107 MMOL/L Carbon Dioxide Level 45 H 21-32 MMOL/L Anion Gap 15 H 5-14 MMOL/L Blood Urea Nitrogen 7 7-18 MG/DL Creatinine 0.64 0.60-1.30 MG/DL Estimat Glomerular Filtration Rate 96 BUN/Creatinine Ratio 11 Glucose Level 54 *L 70-105 MG/DL Calcium Level 9.2 8.5-10.1 MG/DL Corrected Calcium 9.6 8.5-10.1 MG/DL Magnesium Level 1.7 1.6-2.4 MG/DL Total Bilirubin 0.8 0.1-1.0 MG/DL Aspartate Amino Transf (AST/SGOT) 20 5-34 U/L Alanine Aminotransferase (ALT/SGPT) 14 0-55 U/L Alkaline Phosphatase 60 40-136 U/L Lactate Dehydrogenase 245 H 125-220 U/L Total Creatine Kinase 112 29-168 U/L Creatine Kinase MB 3.3 <6.6 NG/ML Myoglobin 145.2 H 10.0-92.0 NG/ML Troponin I < 0.028 <0.028 NG/ML C-Reactive Protein High Sensitivity 3.05 H 0.00-0.50 MG/DL B-Type Natriuretic Peptide 78.0 <100.0 PG/ML Total Protein 7.1 6.4-8.2 GM/DL Albumin 3.5 3.2-4.5 GM/DL Amylase Level 483 H 25-125 U/L Lipase 9 8-78 U/L Procalcitonin 0.07 <0.10 NG/ML TSH [place] Testing 0.55 0.35-4.94 UIU/ML Serum Alcohol < 10 <10 MG/DL SARS-CoV-2 RNA (RT-PCR) Not Detected Negative Glucometer 31 *L 70-110 MG/DL Test 11/04/21 01:00 11/04/21 01:20 11/04/21 01:28 11/04/21 01:36 Range/Units Lactic Acid Level 1.17 0.50-2.00 MMOL/L Urine Color YELLOW Urine Clarity CLEAR Urine pH 8.0 5-9 Urine Specific [place] 1.015 L 1.016-1.022 Urine Protein 1+ H NEGATIVE Urine Glucose (UA) NEGATIVE NEGATIVE Urine Ketones NEGATIVE NEGATIVE Urine Nitrite NEGATIVE NEGATIVE Urine Bilirubin NEGATIVE NEGATIVE Urine Urobilinogen 1.0 < = 1.0 MG/DL Urine Leukocyte Esterase NEGATIVE NEGATIVE Urine RBC (Auto) NEGATIVE NEGATIVE Urine RBC 0-2 /HPF Urine WBC RARE /HPF Urine Squamous Epithelial Cells 0-2 /HPF Urine Crystals NONE /LPF Urine Bacteria NEGATIVE /HPF Urine Casts PRESENT /LPF Urine Hyaline Casts 2-5 H /LPF Urine Mucus MODERATE H /LPF Urine Culture Indicated NO Urine Opiates Screen NEGATIVE NEGATIVE Urine Oxycodone Screen NEGATIVE NEGATIVE Urine Methadone Screen NEGATIVE NEGATIVE Urine Propoxyphene Screen NEGATIVE NEGATIVE Urine Barbiturates Screen NEGATIVE NEGATIVE Ur Tricyclic Antidepressants Screen NEGATIVE NEGATIVE Urine Phencyclidine Screen NEGATIVE NEGATIVE Urine Amphetamines Screen NEGATIVE NEGATIVE Urine Methamphetamines Screen NEGATIVE NEGATIVE Urine Benzodiazepines Screen NEGATIVE NEGATIVE Urine Cocaine Screen NEGATIVE NEGATIVE Urine Cannabinoids Screen NEGATIVE NEGATIVE Blood Gas Puncture Site RIGHT RADIAL Blood Gas Patient Temperature 35.5 Arterial Blood pH 7.38 7.37-7.43 Arterial Blood Partial Pressure CO2 90 *H 35-45 MMHG Arterial Blood Partial Pressure O2 81 79-93 MMHG Arterial Blood HCO3 53 *H 23-27 MMOL/L Arterial Blood Total CO2 55.6 *H 21.0-31.0 MMOL/L Arterial Blood Oxygen Saturation 98 94-100 % Arterial Blood Base Excess 25.5 H -2.5-2.5 MMOL/L Zach Test UNKNOWN Blood Gas Ventilator Setting NO Blood Gas Inspired Oxygen 5L Glucometer 58 *L 70-110 MG/DL Test 11/04/21 02:07 11/04/21 02:50 Range/Units Glucometer 38 *L 70-110 MG/DL My Orders Orders - SERA CHAVEZ DO Accucheck Stat ONCE (11/04/21 00:46) Ed Iv/Invasive Line Start (11/04/21 00:46) Ekg Tracing (11/04/21 00:46) Catheter(Urinary) Insert & Ass 03,15 (11/04/21 00:46) O2 (11/04/21 00:46) Monitor-Rhythm Ecg Trace Only (11/04/21 00:46) Ct Head Wo-R/O Stroke (11/04/21 00:46) Chest 1 View, Ap/Pa Only (11/04/21 00:46) Alcohol (11/04/21 00:46) Amylase (11/04/21 00:46) Arterial Blood Gas (11/04/21 00:46) Cbc With Automated Diff (11/04/21 00:46) Comprehensive Metabolic Panel (11/04/21 00:46) Creatine Kinase (11/04/21 00:46) Creatine Kinase Mb (11/04/21 00:46) Hs C Reactive Protein (11/04/21 00:46) Drug Screen Stat (Urine) (11/04/21 00:46) Lactic Acid Analyzer (11/04/21 00:46) Lipase (11/04/21 00:46) Magnesium (11/04/21 00:46) Protime With Inr (11/04/21 00:46) Partial Thromboplastin Time (11/04/21 00:46) Thyroid Analyzer (11/04/21 00:46) Ua Culture If Indicated (11/04/21 00:46) Blood Culture (11/04/21 00:46) Erythrocyte Sedimentation Rate (11/04/21 00:46) Myoglobin Serum (11/04/21 00:46) Troponin I Giuseppe (11/04/21 00:46) Procalcitonin (Pct) (11/04/21 00:46) LDH (11/04/21 00:46) Covid 19 Inhouse Test (11/04/21 00:46) Isolation Central Supply Req (11/04/21 00:46) D50w (Emergency) Syringe (Dextrose 50% 5 (11/04/21 01:00) D50w (Emergency) Syringe (Dextrose 50% 5 (11/04/21 00:55) Influenza A & B Antigens (11/04/21 00:43) Ct Chest/Abdomen/Pelvis Wo (11/04/21 01:15) Arterial Blood Gas (11/04/21 01:31) D5 Ns 1000 Ml Iv So... W/Potassium Chlor (11/04/21 01:45) D5 1/2 Ns W/Kcl 40 Meq/L (Dextrose 5%/0. (11/04/21 01:45) D50w (Emergency) Syringe (Dextrose 50% 5 (11/04/21 01:45) Bnp Robertson (11/04/21 01:43) Hemoglobin A1c (11/04/21 01:43) Manual Differential (11/04/21 00:45) Coronavirus Sars-Cov-2 So 2018 (11/04/21 00:50) D50w (Emergency) Syringe (Dextrose 50% 5 (11/04/21 02:15) Accucheck Stat ONCE (11/04/21 02:12) Medications Given in ED Current Medications Medications Dose Ordered Sig/Lilo Route Start Time Stop Time Status Last Admin Dose Admin Dextrose 50 ml ONCE ONCE IV 11/04/21 02:15 11/04/21 02:16 DC 11/04/21 01:40 50 ML Dextrose 50 ml STK-MED ONCE .ROUTE 11/04/21 00:55 11/04/21 00:57 DC 11/04/21 01:00 50 ML Vital Signs/I&O 11/04/21 11/04/21 11/04/21 11/04/21 00:35 01:56 01:58 02:14 Temp 35.5 Pulse 79 Resp 18 B/P (MAP) 137/82 (100) Pulse Ox 97 97 100 O2 Delivery Nasal Cannula Nasal Cannula Nasal Cannula O2 Flow Rate 5.00 5.00 5.00 50.00 Capillary Refill : Progress Note : Progress Note PLACED IN ISOLATION ROOM PPE WORN AT ALL TIMES COVID-19 AND FLU TESTING DONE O2 SAT 97-98% ON 5L/NC NO DYSPNEA NO HYPOXIA DURING ER STAY PLACED IN BIPAP AFTER RECEIVING ABG RESULTS, DUE TO ELEVATED CO2 LEVEL, AND PT IS ALREADY SUPPOSED TO ON HOME BIPAP ACCUCHECK 31 ON ARRIVAL--GIVEN 1 AMP S98--[id number] MENTATION REPEAT ACCUCHECK 51--GIVEN AN ADDITIONAL 1 AMP D50, AND STARTED IV FLUIDS WITH D5 1/2 NS + KCL. PT IS AWAKE BUT LETHARGIC. REPEAT ACCUCHECK 31--GIVEN AN ADDITIONAL 1 AMP D50 AND STARTED ON CONTINUOUS INFUSION OF D10. PT IS AWAKE BUT LETHARGIC, AND ABLE TO TALK, AND APPEARS TO UNDERSTAND. 0400--REPEAT ACCUCHECK 99 0435--REPEAT ACCUCHECK 58--RATE OF D10 DOUBLED. PT IS AWAKE, ALERT, TALKING NORMALLY. 0505--REPEAT ACCUCHECK 13 BY FINGERSTICK, THEN 37 ON GLUCOMETER WITH VENOUS BLOOD DRAW--PT IS VERY VERY AWAKE AND ALERT, BRIGHT EYED, TALKATIVE, TALKING NORMALLY, SMILING. STATES SHE FEELS MUCH BETTER. ASKING FOR A DRINK. HAS NO COMPLAINTS. PT IS DRAMATICALLY IMPROVED FROM ARRIVAL. WILL SEND VENOUS LAB DRAW TO LAB FOR SERUM GLUCOSE LEVEL TO BE DONE THERE. GLUCOSE LEVEL ON SAME SPECIMEN IS 54 DONE IN LAB. PT HAD NO COMPLAINTS OF PAIN OR ANY OTHER COMPLAINTS FOR ENTIRE ER STAY ECG Initial ECG Impression Date: Nov 04, 2021 Initial ECG Impression Time: 00:45 Initial ECG Rate: 65 Initial ECG Rhythm: A Fib/Flutter Initial ECG Impression: Nonspecific Changes Diagnostic Imaging Comments CXR--CARDIOMEGALY, MILD VASCULAR CONGESTION--PENDING RADIOLOGIST REVIEW CT HEAD--NO ACUTE PROCESS, PER [facility] VIA FAX AT 0223 CT CHEST/ABDOMEN/PELVIS--NON-SPECIFIC BILATERAL STRANDY INTERSTITIAL OPACITIES; AGE-INDETERMINATE BUCKLE FRACTURES OF LEFT ANTERIOR RIBS 7,8,9. NO OTHER ACUTE PROCESS--PER [facility] VIA FAX AT 0244 Reviewed: Reviewed by Me Departure Communication (Admissions) 0247--SPOKE WITH DR. ACHARYA, HOSPITALIST, ACCEPTS PT FOR ADMIT TO ICU. SHE IS VERY FAMILIAR WITH PT FROM BOTH [facility] AND HERE. 0305--CALLED E-ICU, PHYSICIAN IS CURRENTLY UNAVAILABLE, ADVISED TO TRY CALLING LATER 031--CALLED E-ICU, REPORT GIVEN TO PHYSICIAN. AGREES WITH PLAN OF CARE. 0545--UPDATED E-ICU PHYSICIAN ON PT'S CONDITION AND DISCREPANCIES WITH GLUCOMETER READING VS LAB READING. HE IS COMFORTABLE WITH PT GOING UPSTAIRS AT THIS TIME, PT HAS HAD DRAMATIC IMPROVEMENT IN CONDITION CLINICALLY. Impression Primary Impression: Severe diabetic hypoglycemia Additional Impressions: Electrolyte imbalance Hyponatremia Hypokalemia COPD (chronic obstructive pulmonary disease) Chronic atrial fibrillation Chronic anemia CHRONIC RESPIRATORY FAILURE WITH HYPERCAPNIA Morbid obesity Obesity hypoventilation syndrome SELF REPORTED FALL LEFT TRUNK AND HIP CONTUSION Person under investigation for COVID-19 Dementia INABILITY TO CARE FOR SELF AGE INDETERMINATE LEFT RIB FRACTURES 7,8, 9 Disposition: ADMITTED INPATIENT Condition: Improved Admissions Decision to Admit Reason: Admit from ER (General) Decision to Admit/Date: Nov 04, 2021 Time/Decision to Admit Time: 02:50 Departure-Patient Inst. Referrals: KIRBY JUNG MD (PCP/Family) Primary Care Physician SERA CHAVEZ DO Nov 04, 2021 01:04
[2021-11-04 01:05] LABS: BASOPHILS % (AUTO) 0 % (0-10); EOSINOPHILS # (AUTO) 0.1 10^3/uL (0.0-0.3); EOSINOPHILS % (AUTO) 1 % (0-10); HEMATOCRIT 36 % (35-52); HEMOGLOBIN 10.4 g/dL (11.5-16.0); LYMPHOCYTES # (AUTO) 0.6 10^3/uL (1.0-4.0); LYMPHOCYTES % (AUTO) 7 % (12-44); MEAN CORPUSCULAR HEMOGLOBIN 27 pg (25-34); MEAN CORPUSCULAR HGB CONC 29 g/dL (32-36); MEAN CORPUSCULAR VOLUME 93 fL (80-99); MEAN PLATELET VOLUME 9.3 fL (9.0-12.2); MONOCYTES # (AUTO) 0.5 10^3/uL (0.0-1.0); MONOCYTES % (AUTO) 6 % (0-12); NEUTROPHILS # (AUTO) 7.2 10^3/uL (1.8-7.8); NEUTROPHILS % (AUTO) 85 % (42-75); PLATELET COUNT 319 10^3/uL (130-400); WHITE BLOOD COUNT 8.4 10^3/uL (4.3-11.0)
[2021-11-04 01:19] LABS: ALBUMIN 3.5 GM/DL (3.2-4.5); CHLORIDE 74 MMOL/L (98-107); INR 1.6 (0.8-1.4); POTASSIUM 2.7 MMOL/L (3.6-5.0); PROTHROMBIN TIME PATIENT 19.1 SEC (12.2-14.7); SODIUM 134 MMOL/L (135-145)
[2021-11-04 01:20] LABS: CALCIUM 9.2 MG/DL (8.5-10.1)
[2021-11-04 01:21] LABS: AMYLASE 483 U/L (25-125)
[2021-11-04 01:22] LABS: TOTAL PROTEIN 7.1 GM/DL (6.4-8.2)
[2021-11-04 01:23] LABS: BILIRUBIN,TOTAL 0.8 MG/DL (0.1-1.0); CARBON DIOXIDE 45 MMOL/L (21-32)
[2021-11-04 01:25] LABS: ALKALINE PHOSPHATASE 60 U/L (40-136); GLUCOSE 26 MG/DL (70-105)
[2021-11-04 01:26] LABS: CREATININE SERUM 0.64 MG/DL (0.60-1.30); GFR ESTIMATED 96
[2021-11-04 01:27] LABS: BILIRUBIN,URINE NEGATIVE (NEGATIVE); CLARITY,URINE CLEAR; COLOR,URINE YELLOW; GLUCOSE, URINE (UA) NEGATIVE (NEGATIVE); KETONES,URINE NEGATIVE (NEGATIVE); LEUKOCYTE ESTERASE ,URINE NEGATIVE (NEGATIVE); NITRITE,URINE NEGATIVE (NEGATIVE); PROTEIN,URINE 1+ (NEGATIVE)
[2021-11-04 01:27] LABS: BUN/CREATININE RATIO 11
[2021-11-04 01:28] LABS: ALANINE AMINOTRANSFERASE 14 U/L (0-55); MAGNESIUM 1.7 MG/DL (1.6-2.4)
[2021-11-04 01:29] LABS: CREATINE KINASE 112 U/L (29-168); LIPASE 9 U/L (8-78)
[2021-11-04 01:37] LABS: CREATINE KINASE MB 3.3 NG/ML (<6.6)
[2021-11-04 01:40] LABS: ABG BASE EXCESS 25.5 MMOL/L (-2.5-2.5); ABG OXYGEN SATURATION 98 % (94-100); ABG PH 7.38 (7.37-7.43); ABG PO2 81 MMHG (79-93)
[2021-11-04 01:41] LABS: INSPIRED O2 5L; VENTILATOR NO
[2021-11-04 01:42] LABS: ABG PCO2 90 MMHG (35-45); PATIENT TEMP 35.5
[2021-11-04 01:43] LABS: ABG TCO2 55.6 MMOL/L (21.0-31.0)
[2021-11-04 01:43] LABS: BACTERIA,URINE NEGATIVE /HPF; RBC,URINE 0-2 /HPF; SQUAMOUS EPITHELIAL CELL,UR 0-2 /HPF; WBC,URINE RARE /HPF
[2021-11-04 01:45] LABS: ERYTHROCYTE SEDIMENTATION RATE 88 MM/HR (0-30)
[2021-11-04] MEDS ORDERED: POTASSIUM CHLORIDE INJ 40 MEQ in D5 NS 1000 ML IV SOLUTION 1,000 ML IV SCH (01:45)
[2021-11-04] MEDS ORDERED: D5 1/2 NS W/KCL 40 MEQ/L 1,000 ML IV SCH (01:45)
[2021-11-04 01:49] LABS: TSH (THYROID ANALYZER) 0.55 UIU/ML (0.35-4.94)
[2021-11-04 01:49] LABS: AMPHETAMINE SCREEN, URINE NEGATIVE (NEGATIVE); BARBITURATE SCREEN URINE NEGATIVE (NEGATIVE); BENZODIAZEPINES SCREEN URINE NEGATIVE (NEGATIVE); CANNABINOID SCREEN, URINE NEGATIVE (NEGATIVE); COCAINE SCREEN URINE NEGATIVE (NEGATIVE); METHADONE STAT NEGATIVE (NEGATIVE); METHAMPHETAMINE SCREEN URINE S NEGATIVE (NEGATIVE); OPIATE SCREEN URINE NEGATIVE (NEGATIVE); OXYCODONE STAT NEGATIVE (NEGATIVE); PROPOXYPHENE STAT NEGATIVE (NEGATIVE); TRICYCLIC ANTIDEPRESSANTS SCRE NEGATIVE (NEGATIVE)
[2021-11-04 01:54] LABS: ATYPICAL LYMPHOCYTES 1 %; EOSINOPHILS % (MANUAL) 1 %; HYPOCHROMASIA SLIGHT; LYMPHOCYTES % (MANUAL) 9 %; MICROCYTOSIS SLIGHT; MONOCYTES % (MANUAL) 8 %; NEUTROPHILS % (MANUAL) 81 %; POLYCHROMASIA SLIGHT
[2021-11-04] MEDS ORDERED: DEXTROSE 10% IV SOLUTION 1,000 ML IV ONE (02:54)
[2021-11-04] MEDS ORDERED: DEXTROSE 10% IV SOLUTION 1,000 ML IV SCH ×2 (03:00→06:30)
[2021-11-04] MEDS ORDERED: ACETAMINOPHEN 500 MG TAB (TYLENOL) PO PRN (06:30)
[2021-11-04] MEDS ORDERED: ONDANSETRON 4 MG/2 ML (SDV) Z0FRAN IV PRN (06:30)
--- NOTE | 2021-11-04 06:59 | Diagnostic Imaging Report ---
PROCEDURE: CT chest, abdomen, and pelvis without contrast. TECHNIQUE: Multiple contiguous axial images were obtained through the chest, abdomen, and pelvis without the use of intravenous contrast. Auto Exposure Controls were utilized during the CT exam to meet ALARA standards for radiation dose reduction. INDICATION: Left rib pain with bruising over left hip CT CHEST: There is minimal basilar atelectasis. There are no effusions or pneumothoraces. There is aortic and coronary atherosclerosis. There is an old healed fracture of the left lateral 6th rib. There is slight irregularity of the left anterolateral 7th, 8th and 9th ribs consistent with fractures of indeterminate age. IMPRESSION: Left rib fractures of indeterminate age. Basilar atelectasis CT abdomen pelvis: Liver is unremarkable. Gallbladder surgically absent. Pancreas is normal. Spleen is intact. Kidneys and adrenals appear normal. There is aortic atherosclerosis. There is mild ectasia of the infrarenal aorta. There is no intraperitoneal free air or free fluid. Urinary bladder is decompressed with Li catheter. There is some diverticulosis of the colon but no evidence of diverticulitis. Small bowel is not dilated. The appendix is normal. There are no pelvic fractures seen. IMPRESSION: No acute abnormality seen in the abdomen or pelvis I agree with preliminary interpretation. Dictated by: Dictated on workstation # [id number]
--- NOTE | 2021-11-04 07:20 | Diagnostic Imaging Report ---
PROCEDURE: CT head wo r/o stroke. TECHNIQUE: Multiple contiguous axial images were obtained through the brain without the use of intravenous contrast. Auto Exposure Controls were utilized during the CT exam to meet ALARA standards for radiation dose reduction. INDICATION: Weakness, multiple falls, COPD. COMPARISON: None FINDINGS: Ventricles normal in size, shape and position. There is no midline shift or mass effect. There is no hemorrhage or evidence of acute ischemia. No extra-axial fluid collection or mass is seen. The bony calvarium, paranasal sinuses and mastoids are clear. IMPRESSION: Negative CT head Agree with preliminary report. Dictated by: Dictated on workstation # [id number]
--- NOTE | 2021-11-04 07:20 | Diagnostic Imaging Report ---
Indication: Fall, weakness. Comparison: 10/11/2021 Findings: Single view of the chest demonstrates cardiac enlargement with continued but decreased interstitial infiltrates. No pneumothorax or large effusion is seen. Osseous structures stable. Impression: Cardiac enlargement with interstitial infiltrates. Dictated by: Dictated on workstation # [id number]
--- NOTE | 2021-11-04 07:38 | History & Physical ---
History of Present Illness HPI/Chief Complaint CC: Recurrent hypoglycemia w/fall at home and chronic respiratory failure HPI: This is a 70-year-old white female who recently discharged from room 404 after acute on chronic respiratory failure with hypercapnia and respiratory acidosis who presented to the ER after being found down at home. She was found to be hypoglycemic. Hypercapnia continues and BiPAP was maintained and she is barely compliant with that at home she reports. She continues to smoke. She does have mottling on her fingertips and toes and ears. She was found to have severe refractory hypoglycemia requiring D10 drip so I will reduce that from 40 to 80 cc an hour and initiate a regular diet and initiated amps of D50 as needed. She does take oral hypoglycemic agent at home. Source: patient, RN/MD Exam Limitations: no limitations Date Seen 11/04/21 Time Seen by a Provider: 12:00 Attending Physician Nova Posada Wen-Chou MD Referring Physician Date of Admission Nov 04, 2021 at 02:50 Home Medications & Allergies Home Medications Reviewed patient Home Medication Reconciliation performed by pharmacy medication reconciliations reuse technician and/or nursing. Patients Allergies have been reviewed. Allergies Allergies Coded Allergies clarithromycin (Verified Allergy, Unknown, 11/18/18) moxifloxacin (Verified Allergy, Unknown, 11/18/18) nitrofurantoin (Verified Allergy, Unknown, 11/18/18) penicillin G (Verified Allergy, Unknown, Pt has received Omnicef & cephalexin in the past, 11/19/18) Pt has received Omnicef & cephalexin in the past (from External med history) sulfacetamide (Verified Allergy, Unknown, 11/18/18) trazodone (Verified Allergy, Unknown, 11/18/18) Past Shweojj-Mdshda-Ahivdg Hx Past Med/Social Hx: Reviewed Nursing Past Med/Soc Hx, Reviewed and Corrections made Patient Social History Marrital Status: single Employed/Student: unemployed Alcohol Use: Denies Use Smoking Status: Former Smoker Former Smoker, Quit: May 15, 2019 Recent Infectious Disease Expo: No Past Medical History Surgeries: Abdominal, Section, Gallbladder, Hysterectomy, Tonsillectomy Respiratory: Sleep Apnea Currently Using CPAP: No Currently Using BIPAP: Yes (uses at night) Cardiac: Atrial Fibrillation, Chronic Edema/Swelling, High Cholesterol, Hypertension Neurological: Dementia Hysterectomy, Menopausal Genitourinary: UTI-Chronic Gastrointestinal: Abdominal Hernia, Gastroesophageal Reflux, Diverticulosis, Gall Bladder Disease Musculoskeletal: Arthritis, Chronic Back Pain Endocrine: Diabetes, Non-Insulin dep Psychosocial: Anxiety, Bipolar, Depression History of Blood Disorders: Yes (CHRONIC ANEMIA) Family History LONG HISTORY OF NON-COMPLIANCE. Review of Systems Constitutional: see HPI, malaise, weakness EENTM: no symptoms reported Respiratory: dyspnea on exertion Cardiovascular: no symptoms reported Gastrointestinal: no symptoms reported Genitourinary: no symptoms reported Musculoskeletal: no symptoms reported Skin: no symptoms reported Psychiatric/Neurological: No Symptoms Reported All Other Systems Reviewed Negative Unless Noted: Yes Physical Exam Physical Exam Vital Signs Vital Signs - First Documented 11/04/21 11/04/21 00:35 08:54 Temp 35.5 Pulse 79 Resp 18 B/P (MAP) 137/82 (100) Pulse Ox 97 O2 Delivery Nasal Cannula O2 Flow Rate 5.00 FiO2 40 Capillary Refill : Less Than 3 Seconds Height, Weight, BMI Height: 5'4.00" Weight: 256lbs. 1.0oz. 116.998994yh; 44.44 BMI Method: General Appearance: No Apparent Distress, Chronically ill, Obese (MORBIDLY), Other (LETHARGIC, BUT ABLE TO ANSWER ALL QUESTIONS, SPEECH THICK-TONGUED AND SOMEWHAT MUMBLED AT TIMES. FILTHY, VERY UNKEMPT--WEARING A VERY DIRTY SHIRT, WITH MULITPLE RIPS/TEARS IN IT. ONLY WEARING BRIEFS AND NO PANTS. NO SOCKS/SHOES. MALODOROUS.EXTREMELY POOR HYGIENE. ) Eyes: Bilateral Eye Normal Inspection, Bilateral Eye PERRL HEENT: TMs Normal, Pharynx Normal, Other (DRY ORAL MUCOSA. EDENTULOUS. NO EXTERNAL EVIDENCE OF TRAUMA TO HEAD) Neck: Normal Inspection, Non Tender Respiratory: Normal Breath Sounds, No Accessory Muscle Use, No Respiratory Distress, Other (TENDERNESS TO LEFT LOWER RIBS/CHEST WALL--ANTERIOR AND LATERALLY) Cardiovascular: No Murmur, Irregularly Irregular Gastrointestinal: Soft, Tenderness (LEFT UPPER QUADRANT AND LEFT MID ABDOMEN--NO EXTERNAL EVIDENCE OF TRAUMA TO ABDOMEN) Back: CVA Tenderness (L), Decreased Range of Motion Extremity: Pedal Edema (1+ BILATERALLY), Other (TENDERNESS AND BRUISING TO LEFT HIP) Neurologic/Psychiatric: Alert, No Motor/Sensory Deficits (GROSSLY INTACT), glass wool blanket machine feeder II-XII Norm as Tested, Other (NO FOCAL DEFICITS. ORIENTED TO PERSON AND PLACE, AND ABLE TO ANSWER QUESTIONS APPROPRIATELY. POOR MEMORY AND NO RECOLLECTION OF TONIGHT'S EVENTS. ) Skin: Normal Color, Warm/Dry Lymphatic: No Adenopathy Results Results/Procedures Labs Laboratory Tests 11/04/21 00:45 11/04/21 08:10 11/04/21 12:10 11/04/21 17:05 Patient resulted labs reviewed. Assessment/Plan Admission Diagnosis Assessment: Refractory hypoglycemia due to oral hypoglycemic agent taken at home Fall at home COPD Respiratory acidosis acute on chronic Atrial fibrillation BMI of 45.7 Debility T2DM Dementia Pulmonary hypertension Arthritis Iron deficiency anemia Hypercapnia due to obesity hypoventilation syndrome noncompliant with BiPAP Sleep apnea noncompliant with BiPAP Plan: Change IV fluid to D10 drip with D50 amps Regular diet BiPAP Vapotherm Advanced directive conversation Admission Status: Inpatient Order (span 2 midnights) Reason for Inpatient Admission: Respiratory failure Diagnosis/Problems Diagnosis/Problems (1) Severe diabetic hypoglycemia Status: Acute (2) Chronic atrial fibrillation Status: Acute (3) Obesity hypoventilation syndrome NOVA POSADA DO Nov 04, 2021 07:38
[2021-11-04] MEDS: D5 1/2 NS W/KCL 40 MEQ/L 1,000 ML IV SCH ×2 (08:34→10:48)
[2021-11-04 08:39] LABS: ABG BASE EXCESS 24.4 MMOL/L (-2.5-2.5); ABG OXYGEN SATURATION 93 % (94-100); ABG PH 7.39 (7.37-7.43); ABG PO2 66 MMHG (79-93)
[2021-11-04 08:40] LABS: POTASSIUM 2.9 MMOL/L (3.6-5.0)
[2021-11-04 08:41] LABS: CALCIUM 8.8 MG/DL (8.5-10.1)
[2021-11-04 08:41] LABS: ABG PCO2 87 MMHG (35-45)
[2021-11-04 08:42] LABS: ABG TCO2 53.7 MMOL/L (21.0-31.0); ALLENS TEST YES-POS; INSPIRED O2 50%; PATIENT TEMP 37.2; VENTILATOR YES
[2021-11-04 08:46] LABS: CREATININE SERUM 0.61 MG/DL (0.60-1.30)
[2021-11-04 08:54] VITALS: BP 84/45
[2021-11-04] MEDS ORDERED: KCL 20 MEQ TAB (K-DUR) PO ONE ×3 (09:00→13:00)
[2021-11-04] MEDS ORDERED: RT-ALBUTEROL/IPRATROPIUM 3 ML (DUONEB) VIAL INH PRN (09:15)
[2021-11-04] MEDS ORDERED: MAGNESIUM 2 GM/50 ML IVPB 50 ML IV NR (09:30)
[2021-11-04] MEDS: MAGNESIUM 1 GM/100 ML IVPB 100 ML IV SCH ×2 (10:14→10:48)
[2021-11-04] MEDS ORDERED: ARIP20TA20 PO (10:37)
[2021-11-04 11:30] VITALS: BP 107/74
[2021-11-04] MEDS ORDERED: ALBU2.5V4 NEB (11:51)
--- NOTE | 2021-11-04 11:59 | Tele-ICU Consult ---
History of Present Illness History of Present Illness Date Seen by Provider: Nov 04, 2021 Time Seen by Provider: 09:22 Date of Admission Allergies and Home Medications Allergies Coded Allergies: clarithromycin (Verified Allergy, Unknown, 11/18/18) moxifloxacin (Verified Allergy, Unknown, 11/18/18) nitrofurantoin (Verified Allergy, Unknown, 11/18/18) penicillin G (Verified Allergy, Unknown, Pt has received Omnicef & cephalexin in the past, 11/19/18) Pt has received Omnicef & cephalexin in the past (from External med history) sulfacetamide (Verified Allergy, Unknown, 11/18/18) trazodone (Verified Allergy, Unknown, 11/18/18) Home Medications Albuterol Sulfate 18 Gm Hfa.aer.ad, 2 PUFF INH QID PRN for SHORTNESS OF BREATH, (Reported) Albuterol Sulfate 2.5 Mg/3 Ml Vial.neb, 3 ML NEB Q6H PRN for SHORTNESS OF BREATH, (Reported) Apixaban 5 Mg Tablet, 5 MG PO BID, (Reported) Aripiprazole 20 Mg Tablet, 20 MG PO DAILY, (Reported) Fexofenadine HCl 180 Mg Tablet, 180 MG PO DAILY, (Reported) Furosemide 40 Mg Tablet, 40 MG PO DAILY, (Reported) Glimepiride 4 Mg Tablet, 4 MG PO DAILY, (Reported) Isosorbide Mononitrate 60 Mg Tab, 60 MG PO DAILY, (Reported) Lamotrigine 25 Mg Tablet, 25 MG PO BID, (Reported) Levothyroxine Sodium 25 Mcg Tablet, 25 MCG PO DAILY, (Reported) Lidocaine 1 Each Adh..patch, 1 PAT TD DAILY, (Reported) APPLY TO LEFT SHOULDER- REMOVE AFTER 12 HOURS Metformin HCl 500 Mg Tablet, 500 MG PO BID, (Reported) Olopatadine HCl 2.5 Ml Drops, 1 DROP OU HS, (Reported) Pantoprazole Sodium 20 Mg Tablet.dr, 20 MG PO DAILY, (Reported) Potassium Chloride 10 Meq Tablet.er, 20 MEQ PO BID, (Reported) TAKES 2 (10 MEQ) TABLETS Sitagliptin Phosphate 100 Mg Tablet, 100 MG PO DAILY, (Reported) Zafirlukast 20 Mg Tablet, 20 MG PO BID, (Reported) Past Medical/Social/Family Hx Patient Social History Tobacco Use?: No Tobacco type used: Cigarettes Smoking Status: Former Smoker Smokeless Tobacco Frequency: Never a User Use of E-Cig and/or Vaping dev: No E-Cig and/or Vaping Freq: Never a User Substance use?: No Alcohol Use?: No Pt stated abuse/neglect: No Immunizations Up To Date Influenza Vaccine Up-to-Date: No; Not Current First/Initial COVID19 Vaccinat: Faizan and [employer] - 2020 Tetanus Booster (TDap): Unknown Current Status status: No Advance Directives: No Communicates: Verbally Primary Language: Indonesian Preferred Spoken Language: Indonesian Sensory deficits: Vision impairment Family Medical History Family Hx: LONG HISTORY OF NON-COMPLIANCE. Review of Systems Constitutional: see HPI Focused Exam Lactate Level 11/04/21 01:00: Lactic Acid Level 1.17 Height, Weight, BMI Height: 5'4.00" Weight: 256lbs. 1.0oz. 116.306619lb; 44.44 BMI Method: Exam Exam Patient acknowledged, consented, and participated in this virtual visit which was conducted using real time audio/video Vital Signs Date Time Temp Pulse Resp B/P (MAP) Pulse Ox O2 Delivery O2 Flow Rate FiO2 11/04/21 11:34 NIV Bilevel 40.00 11/04/21 11:30 73 21 100 50.00 11/04/21 10:18 NIV Bilevel 50.00 11/04/21 08:54 81 97 40 11/04/21 08:00 37.0 11/04/21 08:00 Nasal Cannula 5.00 11/04/21 07:00 80 11/04/21 06:45 81 14 84/45 94 Nasal Cannula 5.00 11/04/21 06:30 80 20 81/52 91 Nasal Cannula 5.00 11/04/21 06:21 82 20 Nasal Cannula 5.00 11/04/21 06:15 36.4 83 12 105/63 91 Nasal Cannula 5.00 11/04/21 02:14 100 50.00 11/04/21 01:58 Nasal Cannula 5.00 11/04/21 01:56 97 Nasal Cannula 5.00 11/04/21 00:35 35.5 79 18 137/82 (100) 97 Nasal Cannula 5.00 I & O 11/04/21 07:00 Intake Total 90 ml Balance 90 ml Height & Weight Height: 5'4.00" Weight: 256lbs. 1.0oz. 116.745666my; 44.44 BMI Method: General Appearance: No Apparent Distress, Obese (MORBIDLY), Other (LETHARGIC, BUT ABLE TO ANSWER ALL QUESTIONS, SPEECH THICK-TONGUED AND SOMEWHAT MUMBLED AT TIMES. FILTHY, VERY UNKEMPT--WEARING A VERY DIRTY SHIRT, WITH MULITPLE RIPS/TEARS IN IT. ONLY WEARING BRIEFS AND NO PANTS. NO SOCKS/SHOES. MALODOROUS.EXTREMELY POOR HYGIENE. ) HEENT: TMs Normal, Other (DRY ORAL MUCOSA. EDENTULOUS. NO EXTERNAL EVIDENCE OF TRAUMA TO HEAD) Neck: Normal Inspection, Non Tender Respiratory: Normal Breath Sounds, No Accessory Muscle Use, No Respiratory Distress, Other (TENDERNESS TO LEFT LOWER RIBS/CHEST WALL--ANTERIOR AND LATERALLY) Cardiovascular: No Murmur, Irregularly Irregular Capillary Refill: Less Than 3 Seconds Extremity: Pedal Edema (1+ BILATERALLY), Other (TENDERNESS AND BRUISING TO LEFT HIP) Neurologic/Psychiatric: Alert, No Motor/Sensory Deficits (GROSSLY INTACT), chemist II-XII Norm as Tested, Other (NO FOCAL DEFICITS. ORIENTED TO PERSON AND PLACE, AND ABLE TO ANSWER QUESTIONS APPROPRIATELY. POOR MEMORY AND NO RECOLLECTION OF TONIGHT'S EVENTS. ) Skin: Normal Color, Warm/Dry Results Lab Laboratory Tests 11/04/21 00:45 11/04/21 08:10 Assessment/Plan Assessment/Plan (Tele-ICU Physician , consultation) Available chart/ vitals / labs / Images reviewed H&P is from ER notes Patient's information available about PMH, Shx, Fhx allergy reviewed in EMR. ROS as per chart and RN report Now in ICU, hemodynamically stable Video assessment done using teleICU camera, rest of exam as per RN Discussed with RN. Consultants: Hospital course: 11/03 to ER with AMS chnage , hypoglycemia ( recent admission 10/11-10/15/21 FOR COPD EXACERBATION, CHF, CHRONIC ATRIAL FIBRILLATION.) A/P Hypoglycemia , DM - recent steroid exposure - meds OD ? - follow closely AAO now , started on PO food follw blood draw glucose , accucheck seems not reliable - as per EMS report to ER : REPORT THEY WERE THERE A COUPLE OF DAYS AGO FOR LIFT ASSIST AND BLOOD GLUCOSE WAS 35, BUT PT WAS AWAKE AND ORIENTED A fin - rate control -to resume eliquis h/o CHF - monitor closely Hypoxia with h/o chronic hypooxia on o2 at home ? 5L - baseline COPD - not in exacerbation Lines : (Central Line Necessity Reviewed) Li: OG: Nutrition: Analgesia: Anxiety/ delirium VTE Prophylaxis: eliquis Stress Ulcer Prophylaxis: po Glycemic Control: Plans in collaboration with bedside consultants and IM MDs. Discussed with RN to reach out if any questions or concerns A total of 31 minutes of critical care time was devoted to this patient today, required to treat and/or prevent further deterioration of critical care condition ( as above KELSEA QUINONES MD Nov 04, 2021 11:59
[2021-11-04] MEDS: DEXTROSE 10% IV SOLUTION 1,000 ML IV SCH (13:26)
[2021-11-04] MEDS: DEXTROSE 50% 50 ML (IMS) SYR IV PRN ×4 (13:27→18:09)
[2021-11-04] MEDS: HYDROcodone/APAP 5 MG/325 MG (LORTAB) TAB PO PRN ×2 (13:34→20:23)
[2021-11-04] MEDS: SALINE NASAL SPRAY (OCEAN) 45 ML BTL SCH ×3 (13:53→20:13)
[2021-11-04] MEDS ORDERED: DEXTROSE 40% ORAL GEL TUBE PO PRN (15:00)
--- NOTE | 2021-11-04 15:08 | Consultation - Surgery ---
WENDY MUNGUIA [facility] 11/04/21 1508: History of Present Illness History of Present Illness Patient Consulted On(urbano/time) 11/04/21 15:05 Date Seen by Provider: Nov 04, 2021 Time Seen by Provider: 15:05 Reason for Visit: Consult: Rib Fracture History of Present Illness CC: Consult Rib Fractures Information was obtained by chart review and by patient encounter. HPI: 70 yo F presented to ED by EMS as they found her obtunded in her wheelchair. Patient states that she had fallen onto her left side as she was trying to move to her wheelchair. After the fall, she developed left flank/thoracic pain. States that it is a sharp pain. When patient pushes on the area, it was not tender to palpation. Patient reported that the pain was improved when she leaned forward. CT during ED visit revealed an old healed fracture of the left lateral 6th rib. There is slight irregularity of the left anterolateral 7th, 8th and 9th ribs consistent with fractures of indeterminat age. Patient received a CT in 2018 with a similar appearing irregularity on the 6th rib. Patient denies fevers, chills, abdominal pain, but is currently on Piggybackr Allergies and Home Medications Allergies Coded Allergies: clarithromycin (Verified Allergy, Unknown, 11/18/18) moxifloxacin (Verified Allergy, Unknown, 11/18/18) nitrofurantoin (Verified Allergy, Unknown, 11/18/18) penicillin G (Verified Allergy, Unknown, Pt has received Omnicef & cephalexin in the past, 11/19/18) Pt has received Omnicef & cephalexin in the past (from External med history) sulfacetamide (Verified Allergy, Unknown, 11/18/18) trazodone (Verified Allergy, Unknown, 11/18/18) Patient Home Medication List Home Medication List Reviewed: Yes Albuterol Sulfate (Ventolin Hfa) 18 Gm Hfa.aer.ad, 2 PUFF INH QID PRN for SHORTN ESS OF BREATH, (Reported) Entered as Reported by: RICKI MCCORMACK on 11/19/18 1120 Last Action: Continued Albuterol Sulfate (Albuterol Sulfate) 2.5 Mg/3 Ml Vial.neb, 3 ML NEB Q6H PRN for SHORTNESS OF BREATH, (Reported) Entered as Reported by: FRANCIA MARIE on 11/04/21 1151 Last Action: Continued Apixaban (Eliquis) 5 Mg Tablet, 5 MG PO BID, (Reported) Entered as Reported by: ADEN CALDWELL on 11/30/20 162 Last Action: Held Aripiprazole (Aripiprazole) 20 Mg Tablet, 20 MG PO DAILY, (Reported) Entered as Reported by: FRANCIA MARIE on 11/04/21 1037 Last Action: Converted Fexofenadine HCl (Jennifer Allergy) 180 Mg Tablet, 180 MG PO DAILY, (Reported) Entered as Reported by: FRANCIA MARIE on 10/12/211401 Last Action: Converted Furosemide (Furosemide) 40 Mg Tablet, 40 MG PO DAILY, (Reported) Entered as Reported by: FRANCIA MARIE on 10/12/211401 Last Action: Held Glimepiride (Glimepiride) 4 Mg Tablet, 4 MG PO DAILY, (Reported) Entered as Reported by: ADEN CALDWELL on 11/30/20 162 Last Action: Held Isosorbide Mononitrate (Isosorbide Mononitrate ER) 60 Mg Tab, 60 MG PO DAILY, (Reported) Entered as Reported by: FRANCIA MARIE on 10/12/211401 Last Action: Continued Lamotrigine (Lamotrigine) 25 Mg Tablet, 25 MG PO BID, (Reported) Entered as Reported by: RICKI MCCORMACK on 11/19/18 104 Last Action: Continued Levothyroxine Sodium (Levothyroxine Sodium) 25 Mcg Tablet, 25 MCG PO DAILY, (Reported) Entered as Reported by: RICKI MCCORMACK on 11/19/18 104 Last Action: Continued Lidocaine (Lidocaine 5% Patch) 1 Each Adh..patch, 1 PAT TD DAILY, (Reported) Entered as Reported by: FRANCIA MARIE on 10/12/21 140 Last Action: Continued Metformin HCl (Metformin HCl) 500 Mg Tablet, 500 MG PO BID, (Reported) Entered as Reported by: RICKI MCCORMACK on 11/19/18 1120 Last Action: Held Olopatadine HCl (Olopatadine HCl) 2.5 Ml Drops, 1 DROP OU HS, (Reported) Entered as Reported by: FRANCIA MARIE on 10/12/211401 Last Action: Converted Pantoprazole Sodium (Pantoprazole Sodium) 20 Mg Tablet.dr, 20 MG PO DAILY, (Reported) Entered as Reported by: FRANCIA MARIE on 10/12/21 1402 Last Action: Continued Potassium Chloride (K-Tab ER) 10 Meq Tablet.er, 20 MEQ PO BID, (Reported) Entered as Reported by: ADEN CALDWELL on 11/30/20 1623 Last Action: Continued Sitagliptin Phosphate (Januvia) 100 Mg Tablet, 100 MG PO DAILY, (Reported) Entered as Reported by: RICKI MCCORMACK on 11/19/18 104 Last Action: Held Zafirlukast (Zafirlukast) 20 Mg Tablet, 20 MG PO BID, (Reported) Entered as Reported by: RICKI MCCORMACK on 11/19/18 104 Last Action: Continued Discontinued Medications Aripiprazole (Aripiprazole) 15 Mg Tablet, 15 MG PO DAILY, (Reported) Discontinued Reason: Duplicate Order Entered as Reported by: RICKI MCCORMACK on 11/19/18 104 Last Action: Discontinued Cefdinir (Cefdinir) 300 Mg Capsule, 300 MG PO BID Discontinued Reason: No Longer Taking Prescribed by: LISA ACHARYA on 10/15/21 1231 Last Action: Discontinued Hydroxyzine Pamoate (Hydroxyzine Pamoate) 50 Mg Capsule, 50 MG PO DAILY PRN for ANXIETY, (Reported) Discontinued Reason: Duplicate Order Entered as Reported by: FRANCIA MARIE on 10/12/21 140 Last Action: Discontinued Prednisone (Prednisone) 10 Mg Tab.ds.pk, 10 MG PO DAILY Discontinued Reason: No Longer Taking Prescribed by: LISA ACHARYA on 10/15/21 1231 Last Action: Discontinued Past Bfdrrqe-Rnxwoc-Jixrrw Hx Patient Social History Smoking Status: Former Smoker Former Smoker, Quit: May 15, 2019 Alcohol Use?: No Have you traveled recently?: No Surgeries History of Surgeries: Yes (HERNIA REPAIR) Surgeries: Abdominal, Section, Gallbladder, Hysterectomy, Tonsillectomy Respiratory History of Respiratory Disorde: Yes (RESPIRATORY FAILURE;OBESITY HYPOVENTILATION;O2 AT 5L/NC CONTINUOUSLY) Respiratory Disorders: Sleep Apnea, COPD Cardiovascular History of Cardiac Disorders: Yes (CHF) Cardiac Disorders: Atrial Fibrillation, Chronic Edema/Swelling, High Cholesterol, Hypertension Neurological History of Neurological Disord: Yes Neurological Disorders: Dementia 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, 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 Genitourinary History of Genitourinary Disor: Yes (INCONTINENCE) Genitourinary Disorders: UTI-Chronic Gastrointestinal History of Gastrointestinal Di: Yes Gastrointestinal Disorders: Abdominal Hernia, Gastroesophageal Reflux, Diverticulosis, Gall Bladder Disease Musculoskeletal History of Musculoskeletal Dis: Yes (POOR MOBILITY--POWER WHEELCHAIR AND WALKER.) Musculoskeletal Disorders: Arthritis, Chronic Back Pain Endocrine History of Endocrine Disorders: Yes (MORBID OBESITY) Endocrine Disorders: Diabetes, Non-Insulin dep HEENT History of HEENT Disorders: No Cancer History of Cancer: No Psychosocial History of Psychiatric Problem: Yes Behavioral Health Disorders: Anxiety, Bipolar, Depression Integumentary History of Skin or Integumenta: No Blood Transfusions History of Blood Disorders: Yes (CHRONIC ANEMIA) Family Medical History Significant Family History: Cancer (Mother) Review of Systems-General Constitutional: No chills, No fever EENTM: vision loss; No ear pain, No eye pain Respiratory: cough, short of breath (Chronic) Cardiovascular: No chest pain, No palpitations; other (Thoracic pain) Gastrointestinal: No abdominal pain, No nausea, No vomiting Genitourinary: No pain; other (Li Placed) Musculoskeletal: joint pain (Knee), joint swelling (Knee) Skin: No change in color, No change in hair/nails Psychiatric/Neurological: Anxiety, Depressed Other No historoy of bruising or bleeding Physical Exam-General Problems Physical Exam Vital Signs Vital Signs - First Documented 11/04/21 11/04/21 00:35 08:54 Temp 35.5 Pulse 79 Resp 18 B/P (MAP) 137/82 (100) Pulse Ox 97 O2 Delivery Nasal Cannula O2 Flow Rate 5.00 FiO2 40 Capillary Refill : Less Than 3 Seconds General Appearance: obese, other (Chronically ill) Eyes: Bilateral Eye PERRL, Bilateral Eye EOMI HEENT: PERRL/EOMI, pharynx normal Neck: supple, normal inspection Respiratory: no respiratory distress, no accessory muscle use, other (Chest tender to physician palpation on the left side. Requirng oxygen) Cardiovascular: no murmur, irregularly irregular Peripheral Pulses: 2+ Radial Pulses (R), 2+ Radial Pulses (L) Gastrointestinal: non tender, soft Extremities: no calf tenderness, inflammation (Healing Celluliltis of LLE), other (Tenderness at knee) Neurologic/Psychiatric: alert, oriented x 3 Skin: ecchymosis (present over different areas of the body. Appear old in nature), other (healing cellulitis in the LLE) Data Review Labs Laboratory Tests 11/04/21 00:43: Influenza Type A Antigen NEGATIVE, Influenza Type B Antigen NEGATIVE 11/04/21 00:45: White Blood Count 8.4, Red Blood Count 3.86, Hemoglobin 10.4L, Hematocrit 36, Mean Corpuscular Volume 93, Mean Corpuscular Hemoglobin 27, Mean Corpuscular Hemoglobin Concent 29L, Red Cell Distribution Width 18.0H, Platelet Count 319, Mean Platelet Volume 9.3, Immature Granulocyte % (Auto) 0, Neutrophils (%) (Auto ) 85H, Lymphocytes (%) (Auto) 7L, Monocytes (%) (Auto) 6, Eosinophils (%) (Auto) 1, Basophils (%) (Auto) 0, Neutrophils # (Auto) 7.2, Lymphocytes # (Auto) 0.6L, Monocytes # (Auto) 0.5, Eosinophils # (Auto) 0.1, Basophils # (Auto) 0.0, Immature Granulocyte # (Auto) 0.0, Neutrophils % (Manual) 81, Lymphocytes % (Manual) 9, Monocytes % (Manual) 8, Eosinophils % (Manual) 1, Atypical Lymphocytes 1, Polychromasia SLIGHT, Hypochromasia SLIGHT, Microcytosis SLIGHT, Erythrocyte Sedimentation Rate 88H, Prothrombin Time 19.1H, INR Comment 1.6H, Activated Partial Thromboplast Time 37H, Sodium Level 134L, Potassium Level 2.7L , Chloride Level 74L, Carbon Dioxide Level 45H, Anion Gap 15H, Blood Urea Nitrogen 7, Creatinine 0.64, Estimat Glomerular Filtration Rate 96, BUN/Creatinine Ratio 11, Glucose Level 54*L, Calcium Level 9.2, Corrected Calcium 9.6, Magnesium Level 1.7, Total Bilirubin 0.8, Aspartate Amino Transf (AST/SGOT) 20, Alanine Aminotransferase (ALT/SGPT) 14, Alkaline Phosphatase 60, Lactate Dehydrogenase 245H, Total Creatine Kinase 112, Creatine Kinase MB 3.3, Myoglobin 145.2H, Troponin I < 0.028, C-Reactive Protein High Sensitivity 3.05H, B-Type Natriuretic Peptide 78.0, Total Protein 7.1, Albumin 3.5, Amylase Level 483H, Lipase 9, Procalcitonin 0.07, TSH Tyler Testing 0.55, Serum Alcohol < 10 11/04/21 00:50: SARS-CoV-2 RNA (RT-PCR) Not Detected 11/04/21 00:52: Glucometer 31*L 11/04/21 01:00: Lactic Acid Level 1.17 11/04/21 01:20: Urine Color YELLOW, Urine Clarity CLEAR, Urine pH 8.0, Urine Specific [place] 1.015L, Urine Protein 1+H, Urine Glucose (UA) NEGATIVE, Urine Ketones NEGATIVE, Urine Nitrite NEGATIVE, Urine Bilirubin NEGATIVE, Urine Urobilinogen 1.0, Urine Leukocyte Esterase NEGATIVE, Urine RBC (Auto) NEGATIVE, Urine RBC 0-2, Urine WBC RARE, Urine Squamous Epithelial Cells 0-2, Urine Crystals NONE, Urine Bacteria NEGATIVE, Urine Casts PRESENT, Urine Hyaline Casts 2-5H, Urine Mucus MODERATEH, Urine Culture Indicated NO, Urine Opiates Screen NEGATIVE, Urine Oxycodone Screen NEGATIVE, Urine Methadone Screen NEGATIVE, Urine Propoxyphene Screen NEGATIVE, Urine Barbiturates Screen NEGATIVE, Ur Tricyclic Antidepressants Screen NEGATIVE, Urine Phencyclidine Screen NEGATIVE, Urine Amphetamines Screen NEGATIVE, Urine Methamphetamines Screen NEGATIVE, Urine Benzodiazepines Screen NEGATIVE, Urine Cocaine Screen NEGATIVE, Urine Cannabinoids Screen NEGATIVE 11/04/21 01:28: Blood Gas Puncture Site RIGHT RADIAL, Blood Gas Patient Temperature 35.5, Arterial Blood pH 7.38, Arterial Blood Partial Pressure CO2 90*H, Arterial Blood Partial Pressure O2 81, Arterial Blood HCO3 53*H, Arterial Blood Total CO2 55 .6*H, Arterial Blood Oxygen Saturation 98, Arterial Blood Base Excess 25.5H, Zach Test UNKNOWN, Blood Gas Ventilator Setting NO, Blood Gas Inspired Oxygen 5L 11/04/21 01:36: Glucometer 58*L 11/04/21 02:07: 11/04/21 02:50: Glucometer 38*L 11/04/21 04:00: Glucometer 99 11/04/21 04:35: Glucometer 41*L 11/04/21 05:02: Glucometer 13*L 11/04/21 05:09: Glucometer 37*L 11/04/21 08:10: Sodium Level 132L, Potassium Level 2.9L, Chloride Level 76L, Carbon Dioxide Level 43H, Anion Gap 13, Blood Urea Nitrogen 5L, Creatinine 0.61, Estimat Glomerular Filtration Rate 97, BUN/Creatinine Ratio 8, Glucose Level 98, Calcium Level 8.8 11/04/21 08:31: Blood Gas Puncture Site RIGHT RADIAL, Blood Gas Patient Temperature 37.2, Arterial Blood pH 7.39, Arterial Blood Partial Pressure CO2 87*H, Arterial Blood Partial Pressure O2 66L, Arterial Blood HCO3 51*H, Arterial Blood Total CO2 53.7*H, Arterial Blood Oxygen Saturation 93L, Arterial Blood Base Excess 24.4H, Zach Test YES-POS, Blood Gas Ventilator Setting YES, Blood Gas Inspired Oxygen 50% 11/04/21 09:54: Glucometer 51*L 11/04/21 10:26: Glucometer 33*L 11/04/21 11:55: Glucometer 83 11/04/21 12:10: Glucose Level 71 11/04/21 13:30: Ammonia 26 11/04/21 13:56: Glucometer 28*L 11/04/21 14:19: Glucometer 25*L 11/04/21 14:52: Glucometer 54*L Radiology [facility] [place], [place] NAME: NERY CALDERÓN [facility] REC#: [id number] PT STATUS: ADM IN : 1950 PHYSICIAN: SERA CHAVEZ DO ADMIT DATE: 11/04/21/ICU Signed Date of Exam:11/04/21 CT CHEST/ABDOMEN/PELVIS WO PROCEDURE: CT chest, abdomen, and pelvis without contrast. TECHNIQUE: Multiple contiguous axial images were obtained through the chest, abdomen, and pelvis without the use of intravenous contrast. Auto Exposure Controls were utilized during the CT exam to meet ALARA standards for radiation dose reduction. INDICATION: Left rib pain with bruising over left hip CT CHEST: There is minimal basilar atelectasis. There are no effusions or pneumothoraces. There is aortic and coronary atherosclerosis. There is an old healed fracture of the left lateral 6th rib. There is slight irregularity of the left anterolateral 7th, 8th and 9th ribs consistent with fractures of indeterminate age. IMPRESSION: Left rib fractures of indeterminate age. Basilar atelectasis CT abdomen pelvis: Liver is unremarkable. Gallbladder surgically absent. Pancreas is normal. Spleen is intact. Kidneys and adrenals appear normal. There is aortic atherosclerosis. There is mild ectasia of the infrarenal aorta. There is no intraperitoneal free air or free fluid. Urinary bladder is decompressed with Li catheter. There is some diverticulosis of the colon but no evidence of diverticulitis. Small bowel is not dilated. The appendix is normal. There are no pelvic fractures seen. IMPRESSION: No acute abnormality seen in the abdomen or pelvis I agree with preliminary interpretation. Dictated by: Dictated on workstation # [id number] Dict: 11/04/21 0653 Trans: 11/04/21 0657 TCB [id number] Interpreted by: MICHAEL BROWNING MD Electronically signed by: MICHAEL BROWNING MD 11/04/21 0657 Assessment/Plan Assessment/Plan Admission Diagonsis Hypoglycemia Assessment/Plan Age indeterminate rib fractures - Per chart review, fractures are more likely old in nature as CT in 2018 revealed the same irregularity on the 6th rib that was shown in the most recent CT. - Will sign off ARNIE HURTADO DO 11/04/21 1709: History of Present Illness History of Present Illness Time Seen by Provider: 16:11 History of Present Illness Surgery asked to consult regarding Fall and Rib Fx. HPI per ED: PT ARRIVES VIA EMS FROM HOME, EMS REPORT THAT THEY WERE CALLED BY THE PATIENT, FOR "LIFT ASSIST", PT LIVES ALONE, AND HAS LIMITED MOBILITY--USES A WALKER AND A POWER WHEELCHAIR. PT WAS FOUND SITTING IN HER POWER WHEELCHAIR AND FOUND TO BE OBTUNDED--EMS REPORT THERE WAS NO EVIDENCE OF A FALL. BLOOD GLUCOSE WAS LESS THAN 20/UNREADABLE BY EMS EMS GAVE D10 AND BLOOD GLUCOSE UP TO 116, AND PT WAS AWAKE AND TALKING, INITIAL O2 SAT WAS 68%, BUT HANDS WERE EXTREMELY COLD, PER EMS, PT HAS COPD/ CHRONIC RESPIRATORY FAILURE, AND IS MAINTAINED ON O2 AT 5L/NC CONTINUOUSLY O2 SATS UP TO 90% ON NRB AT 10 L Pt has hx of dementia and gives a different story everytime she is asked. She states she fell, but just to the floor and didn't hit anything; she told my student she fell and hit her left side. She states she has occasional pain on left side and has some SOB (which is normal for her). Allergies and Home Medications Allergies Coded Allergies: clarithromycin (Verified Allergy, Unknown, 11/18/18) moxifloxacin (Verified Allergy, Unknown, 11/18/18) nitrofurantoin (Verified Allergy, Unknown, 11/18/18) penicillin G (Verified Allergy, Unknown, Pt has received Omnicef & cephalexin in the past, 11/19/18) Pt has received Omnicef & cephalexin in the past (from External med history) sulfacetamide (Verified Allergy, Unknown, 11/18/18) trazodone (Verified Allergy, Unknown, 11/18/18) Patient Home Medication List Home Medication List Reviewed: Yes Albuterol Sulfate (Ventolin Hfa) 18 Gm Hfa.aer.ad, 2 PUFF INH QID PRN for SHORTNESS OF BREATH, (Reported) Entered as Reported by: RICKI MCCORMACK on 11/19/18 1120 Last Action: Continued Albuterol Sulfate (Albuterol Sulfate) 2.5 Mg/3 Ml Vial.neb, 3 ML NEB Q6H PRN for SHORTNESS OF BREATH, (Reported) Entered as Reported by: FRANCIA MARIE on 11/04/21 1151 Last Action: Continued Apixaban (Eliquis) 5 Mg Tablet, 5 MG PO BID, (Reported) Entered as Reported by: ADEN CALDWELL on 11/30/20 1623 Last Action: Held Aripiprazole (Aripiprazole) 20 Mg Tablet, 20 MG PO DAILY, (Reported) Entered as Reported by: FRANCIA MARIE on 11/04/21 1037 Last Action: Converted Fexofenadine HCl (Jennifer Allergy) 180 Mg Tablet, 180 MG PO DAILY, (Reported) Entered as Reported by: FRANCIA MARIE on 10/12/21 1402 Last Action: Converted Furosemide (Furosemide) 40 Mg Tablet, 40 MG PO DAILY, (Reported) Entered as Reported by: FRANCIA MARIE on 10/12/21 140 Last Action: Held Glimepiride (Glimepiride) 4 Mg Tablet, 4 MG PO DAILY, (Reported) Entered as Reported by: ADEN CALDWELL on 11/30/20 1623 Last Action: Held Isosorbide Mononitrate (Isosorbide Mononitrate ER) 60 Mg Tab, 60 MG PO DAILY, (Reported) Entered as Reported by: FRANCIA MARIE on 10/12/21 140 Last Action: Continued Lamotrigine (Lamotrigine) 25 Mg Tablet, 25 MG PO BID, (Reported) Entered as Reported by: RICKI MCCORMACK on 11/19/18 104 Last Action: Continued Levothyroxine Sodium (Levothyroxine Sodium) 25 Mcg Tablet, 25 MCG PO DAILY, (Reported) Entered as Reported by: RICKI MCCORMACK on 11/19/18 104 Last Action: Continued Lidocaine (Lidocaine 5% Patch) 1 Each Adh..patch, 1 PAT TD DAILY, (Reported) Entered as Reported by: FRANCIA MARIE on 10/12/21 140 Last Action: Continued Metformin HCl (Metformin HCl) 500 Mg Tablet, 500 MG PO BID, (Reported) Entered as Reported by: RICKI MCCORMACK on 11/19/18 1120 Last Action: Held Olopatadine HCl (Olopatadine HCl) 2.5 Ml Drops, 1 DROP OU HS, (Reported) Entered as Reported by: FRANCIA MARIE on 10/12/21 140 Last Action: Converted Pantoprazole Sodium (Pantoprazole Sodium) 20 Mg Tablet.dr, 20 MG PO DAILY, (Reported) Entered as Reported by: FRANCIA MARIE on 10/12/21 140 Last Action: Continued Potassium Chloride (K-Tab ER) 10 Meq Tablet.er, 20 MEQ PO BID, (Reported) Entered as Reported by: ADEN CALDWELL on 11/30/20 1623 Last Action: Continued Sitagliptin Phosphate (Januvia) 100 Mg Tablet, 100 MG PO DAILY, (Reported) Entered as Reported by: RICKI MCCORMACK on 11/19/18 104 Last Action: Held Zafirlukast (Zafirlukast) 20 Mg Tablet, 20 MG PO BID, (Reported) Entered as Reported by: RICKI MCCORMACK on 11/19/18 104 Last Action: Continued Discontinued Medications Aripiprazole (Aripiprazole) 15 Mg Tablet, 15 MG PO DAILY, (Reported) Discontinued Reason: Duplicate Order Entered as Reported by: RICKI MCCORMACK on 11/19/181048 Last Action: Discontinued Cefdinir (Cefdinir) 300 Mg Capsule, 300 MG PO BID Discontinued Reason: No Longer Taking Prescribed by: LISA ACHARYA on 10/15/21 1231 Last Action: Discontinued Hydroxyzine Pamoate (Hydroxyzine Pamoate) 50 Mg Capsule, 50 MG PO DAILY PRN for ANXIETY, (Reported) Discontinued Reason: Duplicate Order Entered as Reported by: FRANCIAShaista MARIE on 10/12/21 1402 Last Action: Discontinued Prednisone (Prednisone) 10 Mg Tab.ds.pk, 10 MG PO DAILY Discontinued Reason: No Longer Taking Prescribed by: LISA ACHARYA on 10/15/21 1231 Last Action: Discontinued Past Pagyiex-Quwzgh-Lzwxuu Hx Family Medical History Significant Family History: Cancer (Mother) Other Mostly unable to obtain from pt because her answers keep changing Review of Systems-General Constitutional: No chills, No fever EENTM: vision loss; No ear pain, No eye pain Respiratory: cough, short of breath (Chronic) Cardiovascular: No chest pain, No palpitations; other (Thoracic pain) Gastrointestinal: No abdominal pain, No nausea, No vomiting Genitourinary: other (Li Placed) Musculoskeletal: joint pain (Knee), joint swelling (Knee) Skin: No change in color, No change in hair/nails Psychiatric/Neurological: Anxiety, Depressed Physical Exam-General Problems Physical Exam General Appearance: obese, other (Chronically ill) Eyes: Bilateral Eye PERRL, Bilateral Eye EOMI HEENT: pharynx normal; No scleral icterus (R), No scleral icterus (L) Respiratory: no respiratory distress, no accessory muscle use, other (Chest tender to physician palpation on the left side. Requirng oxygen) Cardiovascular: no murmur, irregularly irregular Gastrointestinal: non tender, soft Back: CVA tenderness (L) Extremities: inflammation (Healing Celluliltis of LLE), other (Tenderness at knee) Neurologic/Psychiatric: alert Assessment/Plan Assessment/Plan Assessment/Plan Rib Fractures, Left - 7, 8 and 9th rib Hypoxia - normal for pain Fall - has been having multiple I reviewed the CT myself and don't think the rib fractures are new, but not as old as the 6th rib fracture; which you can see the callus. Encourage IS and breathing treatments as needed. Have RT work with pt. Nothing surgical needed at this time and therefore, will sign off. Supervisory-Addendum Brief Verification & Attestation Participated in pt care: history, MDM, physical Personally performed: exam, history, MDM, supervision of care Care discussed with: Medical Student Procedures: n/a Verification and Attestation of Medical Student E/M Service A medical student performed and documented this service. I then reviewed and verified all information documented by the medical student and made modifications to such information, when appropriate. I personally performed a physical exam, medical decision making and then discussed any differences between the notes and made revisions as necessary to create one note. Arnie Hurtado , 11/04/21 , 17:11 WENDY MUNGUIA [facility] Nov 04, 2021 15:08 ARNIE HURTADO DO Nov 04, 2021 17:09
[2021-11-04] MEDS: RT-ALBUTEROL/IPRATROPIUM 3 ML (DUONEB) VIAL INH SCH ×2 (15:16→21:41)
[2021-11-04] MEDS ORDERED: RT-ALBUTEROL SULF 2.5 MG/3 ML PRE-MIX VIAL IH PRN (17:00)
[2021-11-04] MEDS ORDERED: RT-ALBUTEROL SULF 2.5 MG/3 ML PRE-MIX VIAL INH PRN (17:00)
[2021-11-04] MEDS: KCL 10 MEQ TAB (MICRO K) PO SCH (18:13)
[2021-11-04] MEDS: lamoTRIgine 25 MG (LaMICtal) TAB PO SCH (20:12)
[2021-11-04] MEDS: MONTELUKAST 10 MG (SINGULAIR) TAB PO SCH (20:12)
[2021-11-04] MEDS: LIDOCAINE PATCH REMOVAL TP SCH (20:12)
[2021-11-04] MEDS ORDERED: ZAFIRLUKAST (ACCOLATE) 20 MG TAB PO SCH (21:00)
[2021-11-04 21:41] VITALS: BP 115/777
[2021-11-05] MEDS: DEXTROSE 50% 50 ML (IMS) SYR IV PRN ×2 (00:11→08:43)
[2021-11-05 02:27] VITALS: BP 97/57
[2021-11-05] MEDS: RT-ALBUTEROL/IPRATROPIUM 3 ML (DUONEB) VIAL INH SCH ×3 (02:27→14:41)
[2021-11-05 04:18] LABS: BASOPHILS % (AUTO) 1 % (0-10); EOSINOPHILS # (AUTO) 0.2 10^3/uL (0.0-0.3); EOSINOPHILS % (AUTO) 3 % (0-10); HEMATOCRIT 35 % (35-52); LYMPHOCYTES # (AUTO) 1.3 10^3/uL (1.0-4.0); LYMPHOCYTES % (AUTO) 20 % (12-44); MEAN CORPUSCULAR HEMOGLOBIN 27 pg (25-34); MEAN CORPUSCULAR HGB CONC 29 g/dL (32-36); MEAN CORPUSCULAR VOLUME 93 fL (80-99); MONOCYTES # (AUTO) 0.6 10^3/uL (0.0-1.0); MONOCYTES % (AUTO) 9 % (0-12); NEUTROPHILS # (AUTO) 4.1 10^3/uL (1.8-7.8); NEUTROPHILS % (AUTO) 66 % (42-75); PLATELET COUNT 293 10^3/uL (130-400); WHITE BLOOD COUNT 6.3 10^3/uL (4.3-11.0)
[2021-11-05 04:33] LABS: ALBUMIN 3.4 GM/DL (3.2-4.5); POTASSIUM 4.4 MMOL/L (3.6-5.0)
[2021-11-05 04:34] LABS: CALCIUM 8.9 MG/DL (8.5-10.1)
[2021-11-05 04:37] LABS: BILIRUBIN,TOTAL 0.8 MG/DL (0.1-1.0)
[2021-11-05 04:38] LABS: PHOSPHORUS 3.6 MG/DL (2.3-4.7)
[2021-11-05 04:39] LABS: CREATININE SERUM 0.61 MG/DL (0.60-1.30)
[2021-11-05 04:42] LABS: MAGNESIUM 2.2 MG/DL (1.6-2.4)
[2021-11-05] MEDS ORDERED: MAGNESIUM 1 GM/100 ML IVPB 100 ML IV SCH (06:00)
[2021-11-05] MEDS ORDERED: POTASSIUM CL 10MEQ/50ML IVPB 50 ML IV SCH (06:00)
[2021-11-05] MEDS ORDERED: KCL 20 MEQ TAB (K-DUR) PO SCH (06:00)
--- NOTE | 2021-11-05 06:38 | Progress Note ---
Subjective Date Seen by a Provider: Nov 05, 2021 Time Seen by a Provider: 10:30 Subjective/Events-last exam Patient doing a lot better D10 will need to be slowed down then stop later in the afternoon D50 will be needed for sugar less than 80 Check meds labs Patient feels better Patient appears to be very end stage though Review of Systems General: Fatigue, Malaise Pulmonary: Dyspnea Focused Exam Lactate Level 11/04/21 01:00: Lactic Acid Level 1.17 Objective Exam Last Set of Vital Signs Vital Signs Date Time Temp Pulse Resp B/P (MAP) Pulse Ox O2 Delivery O2 Flow Rate FiO2 11/05/21 06:00 85 17 96/72 100 NIV Bilevel 65.00 11/05/21 04:00 65 11/05/21 00:27 36.7 Capillary Refill : Less Than 3 Seconds I&O Intake and Output 11/05/21 00:00 Intake Total 3590 ml Output Total 1925 ml Balance 1665 ml Intake Oral 1650 ml IV Total 1940 ml Output Urine Total 1925 ml Daily Weight Change No General: Alert, Oriented X3, Cooperative, No Acute Distress Lungs: Clear to Auscultation, Normal Air Movement Heart: Regular Rate, Normal S1, Normal S2, No Murmurs Psych/Mental Status: Mental Status NL, Mood NL Results Lab Laboratory Tests 11/04/21 08:10: Sodium Level 132L, Potassium Level 2.9L, Chloride Level 76L, Carbon Dioxide Level 43H, Anion Gap 13, Blood Urea Nitrogen 5L, Creatinine 0.61, Estimat Glomerular Filtration Rate 97, BUN/Creatinine Ratio 8, Glucose Level 98, Calcium Level 8.8 11/04/21 08:31: Blood Gas Puncture Site RIGHT RADIAL, Blood Gas Patient Temperature 37.2, Arterial Blood pH 7.39, Arterial Blood Partial Pressure CO2 87*H, Arterial Blood Partial Pressure O2 66L, Arterial Blood HCO3 51*H, Arterial Blood Total CO2 53.7*H, Arterial Blood Oxygen Saturation 93L, Arterial Blood Base Excess 24.4H, Zach Test YES-POS, Blood Gas Ventilator Setting YES, Blood Gas Inspired Oxygen 50% 11/04/21 09:54: Glucometer 51*L 11/04/21 10:26: Glucometer 33*L 11/04/21 11:55: Glucometer 83 11/04/21 12:10: Glucose Level 71 11/04/21 13:30: Ammonia 26 11/04/21 13:56: Glucometer 28*L 11/04/21 14:19: Glucometer 25*L 11/04/21 14:52: Glucometer 54*L 11/04/21 15:49: Glucometer 73 11/04/21 17:05: Potassium Level 4.2 11/04/21 17:13: Glucometer 71 11/04/21 18:06: Glucometer 57*L 11/04/21 19:16: Glucometer 160H 11/04/21 20:28: Glucometer 104 11/04/21 22:16: Glucometer 91 11/05/21 00:08: Glucometer 68L 11/05/21 02:24: Glucometer 88 11/05/21 03:52: White Blood Count 6.3, Red Blood Count 3.72L, Hemoglobin 10.0L, Hematocrit 35, Mean Corpuscular Volume 93, Mean Corpuscular Hemoglobin 27, Mean Corpuscular Hemoglobin Concent 29L, Red Cell Distribution Width 18.1H, Platelet Count 293, Mean Platelet Volume 9.0, Immature Granulocyte % (Auto) 0, Neutrophils (%) (Auto) 66, Lymphocytes (%) (Auto) 20, Monocytes (%) (Auto) 9, Eosinophils (%) (Auto) 3, Basophils (%) (Auto) 1, Neutrophils # (Auto) 4.1, Lymphocytes # (Auto) 1.3, Monocytes # (Auto) 0.6, Eosinophils # (Auto) 0.2, Basophils # (Auto) 0.0, Immature Granulocyte # (Auto) 0.0, Sodium Level 129L, Potassium Level 4.4, Chloride Level 79L, Carbon Dioxide Level 38H, Anion Gap 12, Blood Urea Nitrogen 4L, Creatinine 0.61, Estimat Glomerular Filtration Rate 97, BUN/Creatinine Ratio 7, Glucose Level 108H, Calcium Level 8.9, Corrected Calcium 9.4, Phosphorus Level 3.6, Magnesium Level 2.2, Total Bilirubin 0.8, Aspartate Amino Transf (AST/SGOT) 17, Alanine Aminotransferase (ALT/SGPT) 15, Alkaline Phosphatase 59, Total Protein 7.0, Albumin 3.4 11/05/21 06:08: Glucometer 93 Assessment/Plan Assessment/Plan Assess & Plan/Chief Complaint Assessment: Refractory hypoglycemia due to oral hypoglycemic agent taken at home Fall at home COPD Respiratory acidosis acute on chronic Atrial fibrillation BMI of 45.7 Debility T2DM Dementia Pulmonary hypertension Arthritis Iron deficiency anemia Hypercapnia due to obesity hypoventilation syndrome noncompliant with BiPAP Sleep apnea noncompliant with BiPAP Plan: Change IV fluid to D10 drip with D50 amps Regular diet BiPAP Vapotherm Advanced directive conversation 11/05/2021: Continue D50 for sugar less than 80 BiPAP Very poor prognosis Diagnosis/Problems Diagnosis/Problems (1) Severe diabetic hypoglycemia Status: Acute (2) Chronic atrial fibrillation Status: Acute (3) Obesity hypoventilation syndrome LISA ACHARYA DO Nov 05, 2021 06:37
[2021-11-05 08:03] VITALS: BP 73/49
[2021-11-05 08:27] LABS: ABG BASE EXCESS 21.3 MMOL/L (-2.5-2.5); ABG OXYGEN SATURATION 96 % (94-100); ABG PO2 70 MMHG (79-93)
[2021-11-05 08:40] LABS: ABG PCO2 91 MMHG (35-45); ABG PH 7.34 (7.37-7.43); ABG TCO2 51.1 MMOL/L (21.0-31.0); ALLENS TEST YES-POS; INSPIRED O2 50%; PATIENT TEMP 36.5; VENTILATOR NO
[2021-11-05] MEDS: DEXTROSE 10% IV SOLUTION 1,000 ML IV SCH (08:43)
[2021-11-05] MEDS ORDERED: NON-FORMULARY MEDICATION 1 EA EA (Fexofenadine HCl (Allegra Allergy) 180 MG) PO SCH (09:00)
[2021-11-05] MEDS ORDERED: ARIPIPRAZOLE 20 MG PO SCH (09:00)
[2021-11-05] MEDS: LEVOTHYROXINE 25 MCG (LEVOTHROID) TAB PO SCH (09:16)
[2021-11-05] MEDS: lamoTRIgine 25 MG (LaMICtal) TAB PO SCH ×2 (09:16→21:43)
[2021-11-05] MEDS: PANTOPRAZOLE 20 MG TABLET (PROTONIX) PO SCH (09:16)
[2021-11-05] MEDS: LIDOCAINE 4% (SALONPAS) PATCH TOP SCH (09:16)
[2021-11-05] MEDS: ISOSORBIDE MONONITRATE 60 MG (IMDUR) TAB PO SCH (09:16)
[2021-11-05] MEDS: LORATADINE (CLARITIN) 10 MG TAB PO SCH (09:16)
[2021-11-05] MEDS: SALINE NASAL SPRAY (OCEAN) 45 ML BTL SCH ×4 (09:17→21:40)
[2021-11-05] MEDS: KCL 10 MEQ TAB (MICRO K) PO SCH ×2 (09:22→18:11)
--- NOTE | 2021-11-05 10:25 | Tele-ICU Progress Note ---
Subjective Date Seen by a Provider: Nov 05, 2021 Time Seen by a Provider: 10:24 Sepsis Event Evaluation Height, Weight, BMI Height: 5'4.00" Weight: 256lbs. 1.0oz. 116.391133xl; 44.44 BMI Method: Focused Exam Lactate Level 11/04/21 01:00: Lactic Acid Level 1.17 Exam Exam Patient acknowledged, consented, and participated in this virtual visit which was conducted using real time audio/video Vital Signs Date Time Temp Pulse Resp B/P (MAP) Pulse Ox O2 Delivery O2 Flow Rate FiO2 11/05/21 09:00 88 13 118/60 96 High Flow N/C 5.00 11/05/21 08:22 NIV Bilevel 50.00 11/05/21 08:03 77 12 100 50.00 11/05/21 08:03 36.5 11/05/21 08:00 NIV Bilevel 65 11/05/21 08:00 78 17 96/72 100 NIV Bilevel 65.00 11/05/21 07:29 36.0 11/05/21 07:00 87 11/05/21 07:00 80 10 87/49 93 NIV Bilevel 65.00 11/05/21 06:00 85 17 96/72 100 NIV Bilevel 65.00 11/05/21 05:00 NIV Bilevel 65.00 11/05/21 05:00 81 19 83/46 90 NIV Bilevel 65.00 11/05/21 04:00 NIV Bilevel 50.00 11/05/21 04:00 NIV Bilevel 65 11/05/21 04:00 84 23 82/48 99 NIV Bilevel 50.00 11/05/21 03:00 95 22 103/29 89 NIV Bilevel 40.00 11/05/21 02:27 79 21 100 40.00 11/05/21 02:00 77 22 97/57 94 NIV Bilevel 40.00 11/05/21 01:00 82 11/05/21 01:00 82 26 85/58 88 NIV Bilevel 40.00 11/05/21 00:27 36.7 11/05/21 00:12 NIV Bilevel 40.00 11/05/21 00:00 80 20 91/55 85 NIV Bilevel 30.00 11/05/21 00:00 NIV Bilevel 30.00 11/05/21 00:00 NIV Bilevel 30 11/04/21 23:00 79 20 98/59 90 High Flow N/C 5.00 11/04/21 22:14 High Flow N/C 5.00 11/04/21 22:00 95 17 120/83 83 NIV Bilevel 30.00 11/04/21 21:41 75 23 100 40.00 11/04/21 21:30 NIV Bilevel 30.00 11/04/21 21:00 89 20 106/66 93 NIV Bilevel 40.00 11/04/21 20:00 36.8 11/04/21 20:00 84 20 114/97 100 NIV Bilevel 40.00 11/04/21 20:00 High Flow N/C 5.00 11/04/21 19:00 93 28 89/48 100 NIV Bilevel 40.00 11/04/21 19:00 93 11/04/21 18:00 84 23 101/68 90 High Flow N/C 5.00 11/04/21 17:00 85 28 101/66 98 High Flow N/C 5.00 11/04/21 16:00 84 30 105/83 92 High Flow N/C 5.00 11/04/21 16:00 37.0 11/04/21 15:26 High Flow N/C 5.00 11/04/21 15:25 High Flow N/C 5.00 11/04/21 15:16 100 High Flow N/C 5.00 11/04/21 15:00 90 103/56 99 NIV Bilevel 40.00 11/04/21 14:31 NIV Bilevel 40.00 11/04/21 14:00 76 36 93/49 100 High Flow N/C 5.00 11/04/21 13:00 84 11/04/21 13:00 88 32 98 High Flow N/C 5.00 11/04/21 12:58 37.2 11/04/21 12:47 High Flow N/C 5.00 11/04/21 12:41 High Flow N/C 5.00 11/04/21 12:00 82 21 114/63 94 NIV Bilevel 40.00 11/04/21 11:34 NIV Bilevel 40.00 11/04/21 11:30 73 21 100 50.00 11/04/21 11:00 77 23 114/66 100 NIV Bilevel 50.00 I & O 11/05/21 07:00 Intake Total 3500 ml Output Total 3725 ml Balance -225 ml Height & Weight Height: 5'4.00" Weight: 256lbs. 1.0oz. 116.446380la; 44.44 BMI Method: General Appearance: No Apparent Distress, Chronically ill, Obese (MORBIDLY), Other (LETHARGIC, BUT ABLE TO ANSWER ALL QUESTIONS, SPEECH THICK-TONGUED AND SOMEWHAT MUMBLED AT TIMES. FILTHY, VERY UNKEMPT--WEARING A VERY DIRTY SHIRT, WITH MULITPLE RIPS/TEARS IN IT. ONLY WEARING BRIEFS AND NO PANTS. NO SOCKS/SHOES. MALODOROUS.EXTREMELY POOR HYGIENE. ) HEENT: TMs Normal, Pharynx Normal, Other (DRY ORAL MUCOSA. EDENTULOUS. 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 ORIENTED TO PERSON AND PLACE, AND ABLE TO ANSWER QUESTIONS APPROPRIATELY. POOR MEMORY AND NO RECOLLECTION OF TONIGHT'S EVENTS. ) Skin: Normal Color, Warm/Dry Lymphatic: No Adenopathy Results Lab Laboratory Tests 11/04/21 00:45 11/04/21 08:10 11/04/21 12:10 11/04/21 17:05 11/05/21 03:52 Assessment/Plan Assessment/Plan (Tele-ICU Physician , Progress Note ) Available chart/ vitals / labs / Images reviewed Video assessment done using teleICU camera, rest of exam as per RN Discussed with RN , EXAM PER RN Events overnight : Afebrile FiO2 - 50% I/O = pos 1.45L Drips: Pressors: , hemodynamically stable Consultants: Hospital course: 11/03 to ER with AMS chnage , hypoglycemia ( recent admission 10/11-10/15/21 FOR COPD EXACERBATION, CHF, CHRONIC ATRIAL FIBRILLATION.) A/P Hypoglycemia , DM -recent steroid exposure - follow closely , still hypoglycemic AAO now , started on PO food , off DM meds Hypoxia with h/o chronic hypooxia on o2 at home ? 5L - baseline COPD - not in exacerbation - on TRILOGY at home - NON COMPLIANT - placed on - on BIPAP 19/03 50% rr 14 tv 800 mv11L overnight Rib Fractures, Left - 7, 8 and 9th rib - OLD , SEEMS @ DIFFERENT TIMES A fib - rate control -to resume eliquis when ok with PCP h/o CHF - monitor closely Epistaxis 2/3 - eliquis on hold Lines : (Central Line Necessity Reviewed) Li: OG: Nutrition: Analgesia: Anxiety/ delirium VTE Prophylaxis: eliquis on hold Stress Ulcer Prophylaxis: po Glycemic Control: Plans in collaboration with bedside consultants and IM MDs. Discussed with RN to reach out if any questions or concerns A total of 31 minutes of critical care time was devoted to this patient today, required to treat and/or prevent further deterioration of critical care condition ( as above KELSEA QUINONES MD Nov 05, 2021 10:25
--- NOTE | 2021-11-05 10:40 | Progress Note ---
HIGINIO CHEW MED STUDENT 11/05/21 1040: Subjective Date Seen by a Provider: Nov 05, 2021 Time Seen by a Provider: 08:55 Subjective/Events-last exam Pt put on Bipap last night as was prescribed Bipap for home use at night last month (hx of MANNY), pt not using at home. Pt had an episode of hypoglycemia (49) this am on meter - very lethargic during that time, up to 130s after 1amp D50. Pt AxOx3 after D50. Pt denies any new complaints today. Denies new SOB, cp, headache, weakness, diarrhea/constipation. Only complaint is left sided thocic/flank pain 2/2 recent fall. Pt reportedly lives by herself and is assisted with medication administration at home. Review of Systems General: No Chills, No Night Sweats Pulmonary: No Dyspnea (not above baseline. ), No Pleuritic Chest Pain Cardiovascular: Lt Headedness (with recent episode of hypoglycemia (49) ); No: Chest Pain, Palpitations Gastrointestinal: Abdominal Pain (LUQ/L flank pain. ); No: Nausea, Vomiting, Diarrhea, Constipation Genitourinary: Other (sims cath in place ) Focused Exam Lactate Level 11/04/21 01:00: Lactic Acid Level 1.17 Objective Exam Last Set of Vital Signs Vital Signs Date Time Temp Pulse Resp B/P (MAP) Pulse Ox O2 Delivery O2 Flow Rate FiO2 11/05/21 09:00 88 13 118/60 96 High Flow N/C 5.00 11/05/21 08:03 36.5 11/05/21 08:00 65 Capillary Refill : Less Than 3 Seconds I&O Intake and Output 11/05/21 00:00 Intake Total 3590 ml Output Total 1925 ml Balance 1665 ml Intake Oral 1650 ml IV Total 1940 ml Output Urine Total 1925 ml Daily Weight Change No Results Lab Laboratory Tests 11/04/21 11:55: Glucometer 83 11/04/21 12:10: Glucose Level 71 11/04/21 13:30: Ammonia 26 11/04/21 13:56: Glucometer 28*L 11/04/21 14:19: Glucometer 25*L 11/04/21 14:52: Glucometer 54*L 11/04/21 15:49: Glucometer 73 11/04/21 17:05: Potassium Level 4.2 11/04/21 17:13: Glucometer 71 11/04/21 18:06: Glucometer 57*L 11/04/21 19:16: Glucometer 160H 11/04/21 20:28: Glucometer 104 11/04/21 22:16: Glucometer 91 11/05/21 00:08: Glucometer 68L 11/05/21 02:24: Glucometer 88 11/05/21 03:52: White Blood Count 6.3, Red Blood Count 3.72L, Hemoglobin 10.0L, Hematocrit 35, Mean Corpuscular Volume 93, Mean Corpuscular Hemoglobin 27, Mean Corpuscular Hemoglobin Concent 29L, Red Cell Distribution Width 18.1H, Platelet Count 293, Mean Platelet Volume 9.0, Immature Granulocyte % (Auto) 0, Neutrophils (%) (Auto) 66, Lymphocytes (%) (Auto) 20, Monocytes (%) (Auto) 9, Eosinophils (%) (Auto) 3, Basophils (%) (Auto) 1, Neutrophils # (Auto) 4.1, Lymphocytes # (Auto) 1.3, Monocytes # (Auto) 0.6, Eosinophils # (Auto) 0.2, Basophils # (Auto) 0.0, Immature Granulocyte # (Auto) 0.0, Sodium Level 129L, Potassium Level 4.4, Chloride Level 79L, Carbon Dioxide Level 38H, Anion Gap 12, Blood Urea Nitrogen 4L, Creatinine 0.61, Estimat Glomerular Filtration Rate 97, BUN/Creatinine Ratio 7, Glucose Level 108H, Calcium Level 8.9, Corrected Calcium 9.4, Phosphorus Level 3.6, Magnesium Level 2.2, Total Bilirubin 0.8, Aspartate Amino Transf (AST/SGOT) 17, Alanine Aminotransferase (ALT/SGPT) 15, Alkaline Phosphatase 59, Total Protein 7.0, Albumin 3.4 11/05/21 06:08: Glucometer 93 11/05/21 07:33: Glucometer 79 11/05/21 08:24: Blood Gas Puncture Site RT RADIAL, Blood Gas Patient Temperature 36.5, Arterial Blood pH 7.34*L, Arterial Blood Partial Pressure CO2 91*H, Arterial Blood Partial Pressure O2 70L, Arterial Blood HCO3 48*H, Arterial Blood Total CO2 51.1*H, Arterial Blood Oxygen Saturation 96, Arterial Blood Base Excess 21.3H, Zach Test YES-POS, Blood Gas Ventilator Setting NO, Blood Gas Inspired Oxygen 50% 11/05/21 08:41: Glucometer 49*L 11/05/21 09:26: Glucometer 135H Microbiology 11/04/21 MRSA Screen - Final, Complete MRSA not isolated Assessment/Plan Assessment/Plan Assess & Plan/Chief Complaint Symptomatic hypoglycemia, recurrent NIDDM Etiology: Sulfonylurea/med induced Vs Cortical axis deficiency, infectious less likely. no clear sign of infection, pt afebrile, normal WBC, n/l UA, CXR w/o PNA. Pt on 3 DM meds even though HgA1C normal range (5.3 11/04), including sulfonylurea - though pt is apparently assisted with medications at home. CT head neg acute abnormality. Outpt DM medication reconsolidation - holding them currently. Addisons dx r/o? Consider random serum cortisol. Q2hr accuchecks Currently running D10 @ 80ml/hr D50 PRN for hypoglycemia Chronic Afib Rate controlled (70s-80s today) Restart home Eliquis 7-9 L Rib fractures - reported on 11/04 CT chest, indeterminate onset Gen Surg evaluated pt, signed off. Continue IS. PRN lortab, tylenol. Obesity hypoventilation syndrome COPD, baseline home oxygen required (5LPM) Morbid Obesity Pt at baseline O2 req, not in exacerbation. Chronic CO2 retainer with adequate metabolic compensation. HS Bipap Q2hr pt repositioning Bipolar Depression Abilify and lamictal. Hx of CHF Echocardiogram was done in November [address] Hassan as ejection fraction 50 to 55%. No specific med management required, monitor I/Os. GI ppx: 20 protonix DVT ppx: restart home eliquis Lines and Tubes: Sims cath in place, midline. Dispo: Potential transfer to med/surg floor within next day or two. NOVA ACHARYA DO 11/05/212110: Supervisory-Addendum Brief Verification & Attestation Participated in pt care: history, MDM, physical Personally performed: exam, history, MDM, supervision of care Care discussed with: Medical Student Procedures: n/a Results interpretation: Verified all documentation Verification and Attestation of Medical Student E/M Service A medical student performed and documented this service in my presence. I reviewed and verified all information documented by the medical student and made modifications to such information, when appropriate. I personally performed the physical exam and medical decision making. Nova Acharya, Nov 05, 2021,21:11 HIGINIO CHEW MED STUDENT Nov 05, 2021 10:40 NOVA ACHARYA DO Nov 05, 2021 21:11
[2021-11-05] MEDS: APIXABAN 5 MG (ELIQUIS) TABLET PO SCH ×2 (11:17→21:44)
[2021-11-05] MEDS: FUROSEMIDE 40 MG (LASIX) TAB PO SCH (11:17)
[2021-11-05] MEDS: OLOPATADINE 0.1 % OPHTH (PATANOL) 5 ML BTL OU SCH (21:41)
[2021-11-05] MEDS: MONTELUKAST 10 MG (SINGULAIR) TAB PO SCH (21:44)
[2021-11-05] MEDS: HYDROcodone/APAP 5 MG/325 MG (LORTAB) TAB PO PRN (21:44)
[2021-11-05] MEDS: LIDOCAINE PATCH REMOVAL TP SCH (21:49)
[2021-11-06] MEDS: RT-ALBUTEROL/IPRATROPIUM 3 ML (DUONEB) VIAL INH SCH ×5 (01:00→21:25)
[2021-11-06] MEDS: HYDROcodone/APAP 5 MG/325 MG (LORTAB) TAB PO PRN ×2 (01:56→19:43)
[2021-11-06] MEDS: LEVOTHYROXINE 25 MCG (LEVOTHROID) TAB PO SCH (05:10)
--- NOTE | 2021-11-06 05:22 | Progress Note ---
Subjective Date Seen by a Provider: Nov 06, 2021 Time Seen by a Provider: 10:30 Subjective/Events-last exam Patient doing much better No hypoglycemia levels Regular diet allowing her to build up glycogen so will not start SSI No pain reported BiPAP intact Patient has very end stage COPD Needs NHP Needs hospice in my medical opinion Review of Systems General: Fatigue, Malaise Pulmonary: Dyspnea Focused Exam Lactate Level 11/04/21 01:00: Lactic Acid Level 1.17 Objective Exam Last Set of Vital Signs Vital Signs Date Time Temp Pulse Resp B/P (MAP) Pulse Ox O2 Delivery O2 Flow Rate FiO2 11/06/21 03:47 36.3 91 26 104/54 93 High Flow N/C 5.00 11/05/21 08:00 65 Capillary Refill : Less Than 3 Seconds I&O Intake and Output 11/05/21 23:59 Intake Total 3210 ml Output Total 5725 ml Balance -2515 ml Intake Oral 1960 ml IV Total 1250 ml Output Urine Total 5725 ml General: Alert, Oriented X3, Cooperative, No Acute Distress Lungs: Clear to Auscultation, Normal Air Movement Heart: Regular Rate, Normal S1, Normal S2, No Murmurs Psych/Mental Status: Mental Status NL, Mood NL Results Lab Laboratory Tests 11/05/21 06:08: Glucometer 93 11/05/21 07:33: Glucometer 79 11/05/21 08:24: Blood Gas Puncture Site RT RADIAL, Blood Gas Patient Temperature 36.5, Arterial Blood pH 7.34*L, Arterial Blood Partial Pressure CO2 91*H, Arterial Blood Partial Pressure O2 70L, Arterial Blood HCO3 48*H, Arterial Blood Total CO2 51.1*H, Arterial Blood Oxygen Saturation 96, Arterial Blood Base Excess 21.3H, Zach Test YES-POS, Blood Gas Ventilator Setting NO, Blood Gas Inspired Oxygen 50% 11/05/21 08:41: Glucometer 49*L 11/05/21 09:26: Glucometer 135H 11/05/21 11:16: Glucometer 237H 11/05/21 13:07: Glucometer 223H 11/05/21 14:56: Glucometer 227H 11/05/21 16:51: Glucometer 218H 11/05/21 18:52: Glucometer 210H 11/05/21 21:46: Glucometer 170H 11/05/21 23:05: Glucometer 194H 11/06/21 02:40: Glucometer 151H 11/06/21 05:16: Glucometer 164H Microbiology 11/04/21 MRSA Screen - Final, Complete MRSA not isolated Assessment/Plan Assessment/Plan Assess & Plan/Chief Complaint Assessment: Refractory hypoglycemia due to oral hypoglycemic agent taken at home Fall at home COPD Respiratory acidosis acute on chronic Atrial fibrillation BMI of 45.7 Debility T2DM Dementia Pulmonary hypertension Arthritis Iron deficiency anemia Hypercapnia due to obesity hypoventilation syndrome noncompliant with BiPAP Sleep apnea noncompliant with BiPAP Plan: Change IV fluid to D10 drip with D50 amps Regular diet BiPAP Vapotherm Advanced directive conversation 11/05/2021: Continue D50 for sugar less than 80 BiPAP Very poor prognosis 11/06/21: Supportive care BiPAP Permissive hyperglycemia Diagnosis/Problems Diagnosis/Problems (1) Severe diabetic hypoglycemia Status: Acute (2) Chronic atrial fibrillation Status: Acute (3) Obesity hypoventilation syndrome LISA ACHARYA DO Nov 06, 2021 05:22
[2021-11-06 06:08] LABS: BASOPHILS % (AUTO) 1 % (0-10); EOSINOPHILS # (AUTO) 0.2 10^3/uL (0.0-0.3); EOSINOPHILS % (AUTO) 3 % (0-10); HEMATOCRIT 33 % (35-52); HEMOGLOBIN 9.4 g/dL (11.5-16.0); LYMPHOCYTES # (AUTO) 0.9 10^3/uL (1.0-4.0); LYMPHOCYTES % (AUTO) 18 % (12-44); MEAN CORPUSCULAR HEMOGLOBIN 27 pg (25-34); MEAN CORPUSCULAR HGB CONC 28 g/dL (32-36); MEAN CORPUSCULAR VOLUME 95 fL (80-99); MEAN PLATELET VOLUME 9.3 fL (9.0-12.2); MONOCYTES # (AUTO) 0.5 10^3/uL (0.0-1.0); MONOCYTES % (AUTO) 9 % (0-12); NEUTROPHILS # (AUTO) 3.5 10^3/uL (1.8-7.8); NEUTROPHILS % (AUTO) 69 % (42-75); PLATELET COUNT 265 10^3/uL (130-400); WHITE BLOOD COUNT 5.1 10^3/uL (4.3-11.0)
[2021-11-06 06:15] LABS: ALBUMIN 3.2 GM/DL (3.2-4.5); POTASSIUM 4.3 MMOL/L (3.6-5.0)
[2021-11-06 06:16] LABS: CALCIUM 8.9 MG/DL (8.5-10.1)
[2021-11-06 06:18] LABS: TOTAL PROTEIN 6.7 GM/DL (6.4-8.2)
[2021-11-06 06:19] LABS: BILIRUBIN,TOTAL 0.9 MG/DL (0.1-1.0)
[2021-11-06 06:21] LABS: CREATININE SERUM 0.64 MG/DL (0.60-1.30)
[2021-11-06 06:24] LABS: MAGNESIUM 2.1 MG/DL (1.6-2.4)
[2021-11-06] MEDS: KCL 10 MEQ TAB (MICRO K) PO SCH ×2 (08:20→17:13)
[2021-11-06] MEDS: ISOSORBIDE MONONITRATE 60 MG (IMDUR) TAB PO SCH (08:21)
[2021-11-06] MEDS: LIDOCAINE 4% (SALONPAS) PATCH TOP SCH (08:21)
[2021-11-06] MEDS: PANTOPRAZOLE 20 MG TABLET (PROTONIX) PO SCH (08:21)
[2021-11-06] MEDS: FUROSEMIDE 40 MG (LASIX) TAB PO SCH (08:21)
[2021-11-06] MEDS: LORATADINE (CLARITIN) 10 MG TAB PO SCH (08:21)
[2021-11-06] MEDS: lamoTRIgine 25 MG (LaMICtal) TAB PO SCH ×2 (08:21→19:38)
[2021-11-06] MEDS: SALINE NASAL SPRAY (OCEAN) 45 ML BTL SCH ×3 (08:21→16:55)
[2021-11-06] MEDS: APIXABAN 5 MG (ELIQUIS) TABLET PO SCH ×2 (08:21→19:38)
--- NOTE | 2021-11-06 16:38 | Progress Note ---
Subjective Date Seen by a Provider: Nov 06, 2021 Time Seen by a Provider: 10:00 Subjective/Events-last exam Patient doing better BiPAP on Non-compliance with biPAP at home places her at risk for respiratory failure and sudden cardiac Hypoglycemia resolved and permissive hyperglycemia allowed to increase glycogen stores OHA dissipated out of her body by now Review of Systems General: Fatigue, Malaise Pulmonary: Dyspnea Focused Exam Lactate Level 11/04/21 01:00: Lactic Acid Level 1.17 Objective Exam Last Set of Vital Signs Vital Signs Date Time Temp Pulse Resp B/P (MAP) Pulse Ox O2 Delivery O2 Flow Rate FiO2 11/06/21 15:25 96 Nasal Cannula 6.00 11/06/21 11:31 36.4 93 26 119/58 11/05/21 08:00 65 Capillary Refill : Less Than 3 Seconds I&O Intake and Output 11/06/21 00:00 Intake Total 3210 ml Output Total 5725 ml Balance -2515 ml Intake Oral 1960 ml IV Total 1250 ml Output Urine Total 5725 ml General: Alert, Oriented X3, Cooperative, No Acute Distress Lungs: Clear to Auscultation, Normal Air Movement Heart: Regular Rate, Normal S1, Normal S2, No Murmurs Psych/Mental Status: Mental Status NL, Mood NL Results Lab Laboratory Tests 11/05/21 16:51: Glucometer 218H 11/05/21 18:52: Glucometer 210H 11/05/21 21:46: Glucometer 170H 11/05/21 23:05: Glucometer 194H 11/06/21 02:40: Glucometer 151H 11/06/21 05:16: Glucometer 164H 11/06/21 05:46: White Blood Count 5.1, Red Blood Count 3.51L, Hemoglobin 9.4L, Hematocrit 33L, Mean Corpuscular Volume 95, Mean Corpuscular Hemoglobin 27, Mean Corpuscular Hemoglobin Concent 28L, Red Cell Distribution Width 17.9H, Platelet Count 265, Mean Platelet Volume 9.3, Immature Granulocyte % (Auto) 1, Neutrophils (%) (Auto) 69, Lymphocytes (%) (Auto) 18, Monocytes (%) (Auto) 9, Eosinophils (%) (Auto) 3, Basophils (%) (Auto) 1, Neutrophils # (Auto) 3.5, Lymphocytes # (Auto) 0.9L, Monocytes # (Auto) 0.5, Eosinophils # (Auto) 0.2, Basophils # (Auto) 0.0, Immature Granulocyte # (Auto) 0.0, Sodium Level 132L, Potassium Level 4.3, Chloride Level 81L, Carbon Dioxide Level 42H, Anion Gap 9, Blood Urea Nitrogen 6L, Creatinine 0.64, Estimat Glomerular Filtration Rate 96, BUN/Creatinine Ratio 9, Glucose Level 187H, Calcium Level 8.9, Corrected Calcium 9.5, Magnesium Level 2.1, Total Bilirubin 0.9, Aspartate Amino Transf (AST/SGOT) 10, Alanine Aminotransferase (ALT/SGPT) 16, Alkaline Phosphatase 58, Total Protein 6.7, Albumin 3.2 11/06/21 08:05: Glucometer 161H 11/06/21 10:40: Glucometer 242H Microbiology 11/04/21 MRSA Screen - Final, Complete MRSA not isolated Assessment/Plan Assessment/Plan Assess & Plan/Chief Complaint Assessment: Refractory hypoglycemia due to oral hypoglycemic agent taken at home Fall at home COPD Respiratory acidosis acute on chronic Atrial fibrillation BMI of 45.7 Debility T2DM Dementia Pulmonary hypertension Arthritis Iron deficiency anemia Hypercapnia due to obesity hypoventilation syndrome noncompliant with BiPAP Sleep apnea noncompliant with BiPAP Plan: Change IV fluid to D10 drip with D50 amps Regular diet BiPAP Vapotherm Advanced directive conversation 11/05/2021: Continue D50 for sugar less than 80 BiPAP Very poor prognosis 11/06/21: BIPAP Permissive hyperglycemia to increase glycogen stores OHA dissipated Diagnosis/Problems Diagnosis/Problems (1) Severe diabetic hypoglycemia Status: Acute (2) Chronic atrial fibrillation Status: Acute (3) Obesity hypoventilation syndrome LISA ACHARYA DO Nov 06, 2021 16:37
[2021-11-06] MEDS ORDERED: SALINE NASAL SPRAY (OCEAN) 45 ML BTL PRN (17:15)
[2021-11-06] MEDS: OLOPATADINE 0.1 % OPHTH (PATANOL) 5 ML BTL OU SCH (19:39)
[2021-11-06] MEDS: MONTELUKAST 10 MG (SINGULAIR) TAB PO SCH (19:39)
[2021-11-06] MEDS: LIDOCAINE PATCH REMOVAL TP SCH (19:43)
[2021-11-07] MEDS: RT-ALBUTEROL/IPRATROPIUM 3 ML (DUONEB) VIAL INH SCH ×4 (02:57→21:17)
[2021-11-07] MEDS: LEVOTHYROXINE 25 MCG (LEVOTHROID) TAB PO SCH (05:32)
[2021-11-07 06:15] LABS: BASOPHILS % (AUTO) 1 % (0-10); EOSINOPHILS # (AUTO) 0.2 10^3/uL (0.0-0.3); EOSINOPHILS % (AUTO) 3 % (0-10); HEMATOCRIT 31 % (35-52); LYMPHOCYTES # (AUTO) 0.7 10^3/uL (1.0-4.0); LYMPHOCYTES % (AUTO) 13 % (12-44); MEAN CORPUSCULAR HEMOGLOBIN 27 pg (25-34); MEAN CORPUSCULAR HGB CONC 29 g/dL (32-36); MEAN CORPUSCULAR VOLUME 94 fL (80-99); MEAN PLATELET VOLUME 8.9 fL (9.0-12.2); MONOCYTES # (AUTO) 0.4 10^3/uL (0.0-1.0); MONOCYTES % (AUTO) 8 % (0-12); NEUTROPHILS # (AUTO) 4.1 10^3/uL (1.8-7.8); NEUTROPHILS % (AUTO) 74 % (42-75); PLATELET COUNT 248 10^3/uL (130-400); WHITE BLOOD COUNT 5.5 10^3/uL (4.3-11.0)
[2021-11-07 06:24] LABS: ALBUMIN 3.1 GM/DL (3.2-4.5)
[2021-11-07 06:25] LABS: POTASSIUM 3.8 MMOL/L (3.6-5.0)
[2021-11-07 06:26] LABS: CALCIUM 8.8 MG/DL (8.5-10.1)
[2021-11-07 06:27] LABS: TOTAL PROTEIN 6.5 GM/DL (6.4-8.2)
[2021-11-07 06:29] LABS: BILIRUBIN,TOTAL 0.8 MG/DL (0.1-1.0)
[2021-11-07 06:31] LABS: CREATININE SERUM 0.6 MG/DL (0.60-1.30)
[2021-11-07 06:33] LABS: MAGNESIUM 1.8 MG/DL (1.6-2.4)
--- NOTE | 2021-11-07 07:42 | Progress Note ---
Subjective Date Seen by a Provider: Nov 07, 2021 Time Seen by a Provider: 16:45 Subjective/Events-last exam Patient doing a lot better Blood sugars are high so we will start small amount insulin Patient is okay with learning how to give herself insulin Checked meds labs Ready for discharge tomorrow Using BiPAP Started Diamox Review of Systems General: Fatigue, Malaise Objective Exam Last Set of Vital Signs Vital Signs Date Time Temp Pulse Resp B/P (MAP) Pulse Ox O2 Delivery O2 Flow Rate FiO2 11/07/21 07:11 92 High Flow N/C 6.00 11/07/21 03:08 37.0 90 22 139/71 11/05/21 08:00 65 Capillary Refill : Less Than 3 Seconds I&O Intake and Output 11/07/21 00:00 Intake Total 2300 ml Output Total 4700 ml Balance -2400 ml Intake Oral 2300 ml Output Urine Total 4700 ml General: Alert, Oriented X3, Cooperative, No Acute Distress Lungs: Clear to Auscultation, Normal Air Movement Heart: Regular Rate, Normal S1, Normal S2, No Murmurs Psych/Mental Status: Mental Status NL, Mood NL Results Lab Laboratory Tests 11/06/21 08:05: Glucometer 161H 11/06/21 10:40: Glucometer 242H 11/06/21 16:41: Glucometer 258H 11/06/21 21:21: Glucometer 198H 11/07/21 05:31: Glucometer 158H 11/07/21 06:07: White Blood Count 5.5, Red Blood Count 3.28L, Hemoglobin 9.0L, Hematocrit 31L, Mean Corpuscular Volume 94, Mean Corpuscular Hemoglobin 27, Mean Corpuscular Hemoglobin Concent 29L, Red Cell Distribution Width 17.6H, Platelet Count 248, Mean Platelet Volume 8.9L, Immature Granulocyte % (Auto) 1, Neutrophils (%) (Auto) 74, Lymphocytes (%) (Auto) 13, Monocytes (%) (Auto) 8, Eosinophils (%) (Auto) 3, Basophils (%) (Auto) 1, Neutrophils # (Auto) 4.1, Lymphocytes # (Auto) 0.7L, Monocytes # (Auto) 0.4, Eosinophils # (Auto) 0.2, Basophils # (Auto) 0.0, Immature Granulocyte # (Auto) 0.1, Sodium Level 134L, Potassium Level 3.8, Chloride Level 79L, Carbon Dioxide Level 46*H, Anion Gap 9, Blood Urea Nitrogen 5L, Creatinine 0.60, Estimat Glomerular Filtration Rate 98, BUN/Creatinine Ratio 8, Glucose Level 182H, Calcium Level 8.8, Corrected Calcium 9.5, Magnesium Level 1.8, Total Bilirubin 0.8, Aspartate Amino Transf (AST/SGOT) 10, Alanine Aminotransferase (ALT/SGPT) 16, Alkaline Phosphatase 55, Total Protein 6.5, Albumin 3.1L Microbiology 11/04/21 MRSA Screen - Final, Complete MRSA not isolated 11/04/21 Blood Culture - Preliminary, Resulted No growth Assessment/Plan Assessment/Plan Assess & Plan/Chief Complaint Assessment: Refractory hypoglycemia due to oral hypoglycemic agent taken at home Fall at home COPD Respiratory acidosis acute on chronic Atrial fibrillation BMI of 45.7 Debility T2DM Dementia Pulmonary hypertension Arthritis Iron deficiency anemia Hypercapnia due to obesity hypoventilation syndrome noncompliant with BiPAP Sleep apnea noncompliant with BiPAP Elevated bicarb placed on Diamox on 11/07/2021 Plan: Change IV fluid to D10 drip with D50 amps Regular diet BiPAP Vapotherm Advanced directive conversation 11/05/2021: Continue D50 for sugar less than 80 BiPAP Very poor prognosis 11/06/21: BIPAP Permissive hyperglycemia to increase glycogen stores OHA dissipated 11/07/2021: Diamox Insulin starting tomorrow Diagnosis/Problems Diagnosis/Problems (1) Severe diabetic hypoglycemia Status: Acute (2) Chronic atrial fibrillation Status: Acute (3) Obesity hypoventilation syndrome LISA ACHARYA DO Nov 07, 2021 07:42
[2021-11-07] MEDS: LORATADINE (CLARITIN) 10 MG TAB PO SCH (09:30)
[2021-11-07] MEDS: PANTOPRAZOLE 20 MG TABLET (PROTONIX) PO SCH (09:30)
[2021-11-07] MEDS: KCL 10 MEQ TAB (MICRO K) PO SCH ×2 (09:30→17:42)
[2021-11-07] MEDS: FUROSEMIDE 40 MG (LASIX) TAB PO SCH (09:30)
[2021-11-07] MEDS: ISOSORBIDE MONONITRATE 60 MG (IMDUR) TAB PO SCH (09:30)
[2021-11-07] MEDS: lamoTRIgine 25 MG (LaMICtal) TAB PO SCH ×2 (09:30→19:52)
[2021-11-07] MEDS: APIXABAN 5 MG (ELIQUIS) TABLET PO SCH ×2 (09:30→19:52)
[2021-11-07] MEDS: acetaZOLAMIDE 250 MG (DIAMOX) TAB PO SCH ×2 (09:30→19:52)
[2021-11-07] MEDS: LIDOCAINE 4% (SALONPAS) PATCH TOP SCH (09:30)
[2021-11-07] MEDS: NYSTATIN CREAM (MYCOSTATIN) 30 GM TUBE TP SCH ×3 (09:33→19:52)
[2021-11-07] MEDS: MONTELUKAST 10 MG (SINGULAIR) TAB PO SCH (19:51)
[2021-11-07] MEDS: OLOPATADINE 0.1 % OPHTH (PATANOL) 5 ML BTL OU SCH (19:51)
[2021-11-07] MEDS: LIDOCAINE PATCH REMOVAL TP SCH (23:07)
[2021-11-07] MEDS: HYDROcodone/APAP 5 MG/325 MG (LORTAB) TAB PO PRN (23:07)
[2021-11-08] MEDS: RT-ALBUTEROL/IPRATROPIUM 3 ML (DUONEB) VIAL INH SCH ×3 (02:04→21:09)
[2021-11-08] MEDS: inSUlin ASPART (NovoLOG) 1 UNIT/0.01 ML (CHARGE PER UNIT) SC SCH ×3 (06:07→17:14)
[2021-11-08] MEDS: LEVOTHYROXINE 25 MCG (LEVOTHROID) TAB PO SCH (06:07)
[2021-11-08 07:01] LABS: BASOPHILS % (AUTO) 1 % (0-10); EOSINOPHILS # (AUTO) 0.1 10^3/uL (0.0-0.3); EOSINOPHILS % (AUTO) 3 % (0-10); HEMATOCRIT 41 % (35-52); HEMOGLOBIN 11.7 g/dL (11.5-16.0); LYMPHOCYTES # (AUTO) 0.7 10^3/uL (1.0-4.0); LYMPHOCYTES % (AUTO) 18 % (12-44); MEAN CORPUSCULAR HEMOGLOBIN 27 pg (25-34); MEAN CORPUSCULAR HGB CONC 29 g/dL (32-36); MEAN CORPUSCULAR VOLUME 95 fL (80-99); MEAN PLATELET VOLUME 9.2 fL (9.0-12.2); MONOCYTES # (AUTO) 0.3 10^3/uL (0.0-1.0); MONOCYTES % (AUTO) 8 % (0-12); NEUTROPHILS # (AUTO) 2.5 10^3/uL (1.8-7.8); NEUTROPHILS % (AUTO) 69 % (42-75); PLATELET COUNT 212 10^3/uL (130-400); WHITE BLOOD COUNT 3.6 10^3/uL (4.3-11.0)
[2021-11-08 07:09] LABS: ALBUMIN 3.2 GM/DL (3.2-4.5)
[2021-11-08 07:12] LABS: TOTAL PROTEIN 6.7 GM/DL (6.4-8.2)
[2021-11-08 07:14] LABS: BILIRUBIN,TOTAL 0.8 MG/DL (0.1-1.0)
[2021-11-08 07:15] LABS: CREATININE SERUM 0.66 MG/DL (0.60-1.30)
[2021-11-08 08:36] VITALS: BP 121/57
[2021-11-08] MEDS: APIXABAN 5 MG (ELIQUIS) TABLET PO SCH ×2 (09:02→20:55)
[2021-11-08] MEDS: LORATADINE (CLARITIN) 10 MG TAB PO SCH (09:02)
[2021-11-08] MEDS: FUROSEMIDE 40 MG (LASIX) TAB PO SCH (09:02)
[2021-11-08] MEDS: PANTOPRAZOLE 20 MG TABLET (PROTONIX) PO SCH (09:02)
[2021-11-08] MEDS: KCL 10 MEQ TAB (MICRO K) PO SCH ×2 (09:02→17:14)
[2021-11-08] MEDS: ISOSORBIDE MONONITRATE 60 MG (IMDUR) TAB PO SCH (09:02)
[2021-11-08] MEDS: NYSTATIN CREAM (MYCOSTATIN) 30 GM TUBE TP SCH ×3 (09:03→20:55)
[2021-11-08] MEDS: acetaZOLAMIDE 250 MG (DIAMOX) TAB PO SCH ×2 (09:06→20:55)
[2021-11-08] MEDS: lamoTRIgine 25 MG (LaMICtal) TAB PO SCH ×2 (09:06→20:55)
[2021-11-08] MEDS: LIDOCAINE 4% (SALONPAS) PATCH TOP SCH (09:06)
--- NOTE | 2021-11-08 10:55 | Progress Note ---
Subjective Date Seen by a Provider: Nov 08, 2021 Time Seen by a Provider: 10:30 Subjective/Events-last exam Pt doing better PT and OT will be ordered Will provide education on how to give insulin Will need to use BiPAP when she goes home She still smokes Overall poor prognosis Updated social work on the plan Review of Systems General: Fatigue Pulmonary: Dyspnea Objective Exam Last Set of Vital Signs Vital Signs Date Time Temp Pulse Resp B/P (MAP) Pulse Ox O2 Delivery O2 Flow Rate FiO2 11/08/21 09:58 93 High Flow N/C 5.00 11/08/21 08:36 93 40 11/08/21 04:09 36.8 20 121/57 Capillary Refill : Less Than 3 Seconds I&O Intake and Output 11/08/21 00:00 Intake Total 2150 ml Output Total 4600 ml Balance -2450 ml Intake Oral 2150 ml Output Urine Total 4600 ml General: Alert, Oriented X3, Cooperative, No Acute Distress Lungs: Clear to Auscultation, Normal Air Movement Heart: Regular Rate, Normal S1, Normal S2, No Murmurs Psych/Mental Status: Mental Status NL, Mood NL Results Lab Laboratory Tests 11/07/21 11:06: Glucometer 286H 11/07/21 16:39: Glucometer 211H 11/07/21 21:18: Glucometer 186H 11/08/21 05:02: Glucometer 183H 11/08/21 06:21: White Blood Count 3.6L, Red Blood Count 4.34, Hemoglobin 11.7#, Hematocrit 41, Mean Corpuscular Volume 95, Mean Corpuscular Hemoglobin 27, Mean Corpuscular Hemoglobin Concent 29L, Red Cell Distribution Width 17.6H, Platelet Count 212, Mean Platelet Volume 9.2, Immature Granulocyte % (Auto) 1, Neutrophils (%) (Auto) 69, Lymphocytes (%) (Auto) 18, Monocytes (%) (Auto) 8, Eosinophils (%) (Auto) 3, Basophils (%) (Auto) 1, Neutrophils # (Auto) 2.5, Lymphocytes # (Auto) 0.7L, Monocytes # (Auto) 0.3, Eosinophils # (Auto) 0.1, Basophils # (Auto) 0.0, Immature Granulocyte # (Auto) 0.0, Sodium Level 135, Potassium Level 3.0L, Chloride Level 82L, Carbon Dioxide Level 43H, Anion Gap 10, Blood Urea Nitrogen 6L, Creatinine 0.66, Estimat Glomerular Filtration Rate 95, BUN/Creatinine Ratio 9, Glucose Level 184H, Calcium Level 9.0, Corrected Calcium 9.6, Magnesium Level 2.0, Total Bilirubin 0.8, Aspartate Amino Transf (AST/SGOT) 10, Alanine Aminotransferase (ALT/SGPT) 12, Alkaline Phosphatase 56, Total Protein 6.7, Albumin 3.2 Microbiology 11/04/21 MRSA Screen - Final, Complete MRSA not isolated 11/04/21 Blood Culture - Preliminary, Resulted No growth Assessment/Plan Assessment/Plan Assess & Plan/Chief Complaint Assessment: Refractory hypoglycemia due to oral hypoglycemic agent taken at home Fall at home COPD Respiratory acidosis acute on chronic Atrial fibrillation BMI of 45.7 Debility T2DM Dementia Pulmonary hypertension Arthritis Iron deficiency anemia Hypercapnia due to obesity hypoventilation syndrome noncompliant with BiPAP Sleep apnea noncompliant with BiPAP Elevated bicarb placed on Diamox on 11/07/2021 Plan: Change IV fluid to D10 drip with D50 amps Regular diet BiPAP Vapotherm Advanced directive conversation 11/05/2021: Continue D50 for sugar less than 80 BiPAP Very poor prognosis 11/06/21: BIPAP Permissive hyperglycemia to increase glycogen stores OHA dissipated 11/07/2021: Diamox Insulin starting tomorrow 11/08/2021: PT and OT Insulin education Supportive care Diagnosis/Problems Diagnosis/Problems (1) Severe diabetic hypoglycemia Status: Acute (2) Chronic atrial fibrillation Status: Acute (3) Obesity hypoventilation syndrome LISA ACHARYA DO Nov 08, 2021 10:55
--- NOTE | 2021-11-08 13:48 | Physical Therapy Evaluation ---
PT Evaluation-General Medical Diagnosis Admission Date Nov 04, 2021 at 02:50 Medical Diagnosis: Diabetic Hypoglycemia Onset Date: Nov 04, 2021 Therapy Diagnosis Therapy Diagnosis: weakness, debility Height/Weight Height (Feet): 5 Height (Inches): 4.00 Weight (Pounds): 256 Weight (Ounces): 1.0 Precautions Precautions/Isolations: Fall Prevention, Standard Precautions, Pressure Ulcer Referral Physician: Albino Reason for Referral: Evaluation/Treatment Medical History Pertinent Medical History: Atrial Fib, COPD, DM, Heart Failure, HTN Additional Medical History Obesity Current History Patient called EMS for assist to lift but EMS found her in her w/c. Patient had low blood sugar and does not remember calling EMS. Patient reported to ED via EMS for low blood sugar. Reviewed History: Yes Social History Home: Single Level Current Living Status: Alone Patient reports that she has caregivers that help her with household activities. Prior Prior Level of Function SCALE: Activities may be completed with or without assistive devices. 5-Urqtzlyfrm-nzsxhbp completes the activity by him/herself with no assistance from a helper. 5-Set-up or Clean-up Assistance-helper sets up or cleans up; patient completes activity. [place] assists only prior to or following the activity. 4-Supervision or Touching Assistance-helper provides verbal cues and/or touching/steadying and/or contact guard assistance as patient completes activity. Assistance may be provided throughout the activity or intermittently. 3-Partial/Moderate Assistance-helper does LESS THAN HALF the effort. [place] lifts, holds or supports trunk or limbs, but provides less than half the effort. 2-Substantial/Maximal Assistance-helper does MORE THAN HALF the effort. [place] lifts or holds trunk or limbs and provides more than half the effort. 9-Orglbfaaw-tlrxos does ALL the effort. Patient does none of the effort to complete the activity. Or, the assistance of 2 or more helpers is required for the patient to complete the activity. If activity was not attempted, code reason: 7-Patient Refused. 9-Not Applicable-not attempted and the patient did not perform the activity before the current illness, exacerbation or injury. 10-Not Attempted due to Environmental Limitations-(lack of equipment, weather restraints, etc.). 88-Not Attempted due to Medical Conditions or Safety Concerns. Bed Mobility: 6 Transfers (B,C,W/C): 6 Per patient she reports that she can ambulate about 10 feet but is in her power wheel chair most of the day. PT Evaluation-Current Subjective Patient presents laying in her bed and agrees to participate in physical therapy. Objective Patient Orientation: Person, Place, Situation Attachments: Oxygen (5L HC NC), Li Catheter Patient reports that she wears O2 at home time broker as well ROM/Strength ROM Lower Extremities WFL Strength Lower Extremities 3+/5 bilaterally grossly Integumentary/Posture Bladder Incontinence: Li Cath Neuromuscular (Tone, Coordination, Reflexes) grossly intact Sensory Vision: Functional Hearing: Functional Transfers Lying to Sitting/Side of Bed(Q: 6 Chair/Sft-xc-Wizao Xfer(QC): 6 Gait Does the Patient Walk?: No and Walking Goal NOT indicated Mode of Locomotion: Both Anticipated Mode of Locomotion: Wheelchair Wheelchair Training Does the Pt Use a Wheelchair?: Yes Balance Sitting Static: Normal Sitting Dynamic: Fair Standing Static: Fair Standing Dynamic: Poor Assessment/Needs Patient performed bed mobility and transferred to her chair independently. Patient reports that she performs all transfers at her house by herself. Due to patient current function and her PLOF patient is being discharged from therapy services at this time. Rehab Potential: Fair PT Plan Problem List Problem List: Activity Tolerance, Functional Strength, Safety, Balance, Gait, Bed Mobility, ROM Treatment/Plan Treatment Plan: Discontinue PT, goals met Treatment Duration: Nov 08, 2021 Frequency: 1 time per week Estimated Hrs Per Day: .25 hour per day Time/GCodes Time In: 1311 Time Out: 1321 Total Billed Treatment Time: 10 Total Billed Treatment 1 Visit EVMod 10 min KRISSY RAINEY PT Nov 08, 2021 13:48
--- NOTE | 2021-11-08 14:35 | Occupational Therapy Eval ---
OT Evaluation-General/PLF Medical Diagnosis Admission Date Nov 04, 2021 at 02:50 Medical Diagnosis: Diabetic Hypoglycemia Onset Date: Nov 04, 2021 Therapy Diagnosis Therapy Diagnosis: n/a Height/Weight Height (Feet): 5 Height (Inches): 4.00 Weight (Pounds): 256 Weight (Ounces): 1.0 Precautions Precautions/Isolations: Fall Prevention, Standard Precautions, Pressure Ulcer Referral Physician: Albino Medical History Pertinent Medical History: Atrial Fib, COPD, DM, Heart Failure, HTN Additional Medical History obesity Current History Called EMS for lift assistance, pt found her in her w/c. Pt had low blood sugar. Social History Home: Single Level Current Living Status: Alone ADL-Prior Level of Function SCALE: Activities may be completed with or without assistive devices. 5-Tzaxaqsjwq-lodfbds completes the activity by him/herself with no assistance from a helper. 5-Set-up or Clean-up Assistance-helper sets up or cleans up; patient completes activity. [place] assists only prior to or following the activity. 4-Supervision or Touching Assistance-helper provides verbal cues and/or touching/steadying and/or contact guard assistance as patient completes activity. Assistance may be provided throughout the activity or intermittently. 3-Partial/Moderate Assistance-helper does LESS THAN HALF the effort. [place] lifts, holds or supports trunk or limbs, but provides less than half the effort. 2-Substantial/Maximal Assistance-helper does MORE THAN HALF the effort. [place] lifts or holds trunk or limbs and provides more than half the effort. 9-Wuqabsebp-lnhork does ALL the effort. Patient does none of the effort to complete the activity. Or, the assistance of 2 or more helpers is required for the patient to complete the activity. If activity was not attempted, code reason: 7-Patient Refused. 9-Not Applicable-not attempted and the patient did not perform the activity before the current illness, exacerbation or injury. 10-Not Attempted due to Environmental Limitations-(lack of equipment, weather restraints, etc.). 88-Not Attempted due to Medical Conditions or Safety Concerns. ADL PLOF Comments Pt reports having assistance with ADLS at PLOF, she uses a power w/c for functional mobility, independent with transfers and able to ambulate ~10 feet. Pt is able to toilet independently, has assistance with bathing, and requires assistance with footwear. Pt able to don/doff LE/UE clothing. Self Care: Needed Some Help Functional Cognition: Independent OT Current Status Subjective Pt up in recliner, requesting to transfer to [facility]. Mental Status/Objective Patient Orientation: Person, Place, Situation Attachments: Li Catheter, Oxygen Current Upper Extremity ROM WFL ADL-Treatment Eating (QC): 6 (Per pt report.) Oral Hygiene (QC): 5 (Per clincial judgment.) Toileting Hygiene (QC): 6 (IND, pt able to manage hygiene) Other Treatments Pt in recliner, SPT from recliner to [facility] with STUDIO COORDINATOR. Pt completed toileting, able to complete hygiene independently. [facility] then [facility]. Pt reports she is at her PLOF with ADLs, and doesn't want further OT services at this time. Post tx, pt in recliner, call light in reach and all needs met. Education OT Patient Education: Correct positioning, Energy conservation, Modified ADL techniques, Progress toward Goal/Update tx plan, Purpose of tx/functional activities, Rehab process Teaching Recipient: Patient Teaching Methods: Discussion Response to Teaching: Verbalize Understanding OT Event Set Up Specialist Goals Event Set Up Specialist Goals 1=Demonstrate adherence to instructed precautions during ADL tasks. 2=Patient will verbalize/demonstrate understanding of assistive devices/modifications for ADL. 3=Patient will improve strength/tolerance for activity to enable patient to perform ADL's. OT Education/Plan Problem List/Assessment Assessment: No Skilled OT Needs ID'd No skilled OT services indicated at this time, as pt is currently at OF with ADLs, independent with transfers and toileting. She has assistance with bathing and dressing. Pt does not want further OT services at this [facility]. d/c from OT. Discharge Recommendations Plan/Recommendations: Discharge/Goals Met Treatment Plan/Plan of Care Patient would benefit from OT for education, treatment and training to promote independence in ADL's, mobility, safety and/or upper extremity function for ADL's. Plan of Care: ADL Retraining, Functional Mobility Treatment Duration: Nov 08, 2021 Frequency: 1 time per week (eval only) Estimated Hrs Per Day: .25 hour per day Rehab Potential: Fair Time/GCodes Start Time: 14:15 Stop Time: 14:26 Total Time Billed (hr/min): 11 Billed Treatment Time 1, JEANINE GOTTI OT Nov 08, 2021 14:35
[2021-11-08] MEDS: OLOPATADINE 0.1 % OPHTH (PATANOL) 5 ML BTL OU SCH (20:55)
[2021-11-08] MEDS: MONTELUKAST 10 MG (SINGULAIR) TAB PO SCH (20:55)
[2021-11-08] MEDS: LIDOCAINE PATCH REMOVAL TP SCH (21:06)
[2021-11-09] MEDS: LEVOTHYROXINE 25 MCG (LEVOTHROID) TAB PO SCH (06:25)
[2021-11-09 07:47] LABS: BASOPHILS % (AUTO) 1 % (0-10); EOSINOPHILS # (AUTO) 0.2 10^3/uL (0.0-0.3); EOSINOPHILS % (AUTO) 3 % (0-10); HEMATOCRIT 36 % (35-52); HEMOGLOBIN 10.3 g/dL (11.5-16.0); LYMPHOCYTES # (AUTO) 0.8 10^3/uL (1.0-4.0); LYMPHOCYTES % (AUTO) 13 % (12-44); MEAN CORPUSCULAR HEMOGLOBIN 27 pg (25-34); MEAN CORPUSCULAR HGB CONC 28 g/dL (32-36); MEAN CORPUSCULAR VOLUME 96 fL (80-99); MEAN PLATELET VOLUME 8.8 fL (9.0-12.2); MONOCYTES # (AUTO) 0.4 10^3/uL (0.0-1.0); MONOCYTES % (AUTO) 7 % (0-12); NEUTROPHILS # (AUTO) 4.3 10^3/uL (1.8-7.8); NEUTROPHILS % (AUTO) 75 % (42-75); PLATELET COUNT 255 10^3/uL (130-400); WHITE BLOOD COUNT 5.7 10^3/uL (4.3-11.0)
[2021-11-09 08:08] LABS: ALBUMIN 3.3 GM/DL (3.2-4.5); BILIRUBIN,TOTAL 0.8 MG/DL (0.1-1.0); CALCIUM 9.2 MG/DL (8.5-10.1); CREATININE SERUM 0.69 MG/DL (0.60-1.30); MAGNESIUM 1.9 MG/DL (1.6-2.4); POTASSIUM 3.1 MMOL/L (3.6-5.0); TOTAL PROTEIN 7.2 GM/DL (6.4-8.2)
[2021-11-09] MEDS: RT-ALBUTEROL/IPRATROPIUM 3 ML (DUONEB) VIAL INH SCH (08:56)
[2021-11-09] MEDS: PANTOPRAZOLE 20 MG TABLET (PROTONIX) PO SCH (09:51)
[2021-11-09] MEDS: lamoTRIgine 25 MG (LaMICtal) TAB PO SCH (09:52)
[2021-11-09] MEDS: KCL 10 MEQ TAB (MICRO K) PO SCH (09:52)
[2021-11-09] MEDS: FUROSEMIDE 40 MG (LASIX) TAB PO SCH (09:52)
[2021-11-09] MEDS: APIXABAN 5 MG (ELIQUIS) TABLET PO SCH (09:52)
[2021-11-09] MEDS: acetaZOLAMIDE 250 MG (DIAMOX) TAB PO SCH (09:52)
[2021-11-09] MEDS: LORATADINE (CLARITIN) 10 MG TAB PO SCH (09:52)
[2021-11-09] MEDS: ISOSORBIDE MONONITRATE 60 MG (IMDUR) TAB PO SCH (09:52)
[2021-11-09] MEDS: inSUlin ASPART (NovoLOG) 1 UNIT/0.01 ML (CHARGE PER UNIT) SC SCH (09:53)
[2021-11-09] MEDS: LIDOCAINE 4% (SALONPAS) PATCH TOP SCH (09:56)
[2021-11-09] MEDS: NYSTATIN CREAM (MYCOSTATIN) 30 GM TUBE TP SCH (09:58)
[2021-11-09] MEDS ORDERED: SODI44SP2 (10:52)
[2021-11-09] MEDS ORDERED: [UNRECOGNIZED DRUG - CODE] MC (10:52)
[2021-11-09] MEDS ORDERED: INSU100I29 SQ (10:52)
[2021-11-09] MEDS ORDERED: NYST15CR TP (10:52)
[2021-11-09] MEDS ORDERED: ACET250T3 PO (10:52)
[2021-11-09] MEDS ORDERED: ACHD5005 PO (10:52)
[2021-11-09] MEDS ORDERED: INSU100I14 SQ (10:52)
--- NOTE | 2021-11-09 10:53 | Discharge Summary ---
Diagnosis/Chief Complaint Date of Admission Nov 04, 2021 at 02:50 Date of Discharge Discharge Date: Nov 09, 2021 Discharge Diagnosis Assessment: Refractory hypoglycemia due to oral hypoglycemic agent taken at home Fall at home COPD Respiratory acidosis acute on chronic Atrial fibrillation BMI of 45.7 Debility T2DM Dementia Pulmonary hypertension Arthritis Iron deficiency anemia Hypercapnia due to obesity hypoventilation syndrome noncompliant with BiPAP Sleep apnea noncompliant with BiPAP Elevated bicarb placed on Diamox on 11/07/2021 Plan: Change IV fluid to D10 drip with D50 amps Regular diet BiPAP Vapotherm Advanced directive conversation 11/05/2021: Continue D50 for sugar less than 80 BiPAP Very poor prognosis 11/06/21: BIPAP Permissive hyperglycemia to increase glycogen stores OHA dissipated 11/07/2021: Diamox Insulin starting tomorrow 11/08/2021: PT and OT Insulin education Supportive care Discharge Summary Discharge Physical Examination Allergies: Coded Allergies: clarithromycin (Verified Allergy, Unknown, 11/18/18) moxifloxacin (Verified Allergy, Unknown, 11/18/18) nitrofurantoin (Verified Allergy, Unknown, 11/18/18) penicillin G (Verified Allergy, Unknown, Pt has received Omnicef & cephalexin in the past, 11/19/18) Pt has received Omnicef & cephalexin in the past (from External med history) sulfacetamide (Verified Allergy, Unknown, 11/18/18) trazodone (Verified Allergy, Unknown, 11/18/18) Vitals & I&Os Vital Signs Date Time Temp Pulse Resp B/P (MAP) Pulse Ox O2 Delivery O2 Flow Rate FiO2 11/09/21 14:46 36.5 81 18 124/65 96 High Flow N/C 6.00 11/08/21 08:36 40 General Appearance: Alert, Oriented X3, Cooperative Respiratory: Clear to Auscultation Cardiovascular: Regular Rate Neuro: Normal Gait, Normal Speech, Strength at 5/5 X4 Ext Hospital Course Was the Problem List Reviewed?: Yes Pt had an uneventful hospital course for 6 days. After she was admitted for refractory hypoglycemia due to oral hyperglycemic agent long acting at home. She required multiple rounds of D50 and D10 drip. She was placed in the ICU and remained for several days. She ultimately returned euglycemic then hyperglycemic, requiring a gentle dose of insulin. She was taught how to give insulin herself and that was sent into the pharmacy. Labs (last 24 hrs) Laboratory Tests 11/04/21 00:43: Influenza Type A Antigen NEGATIVE, Influenza Type B Antigen NEGATIVE 11/04/21 00:45: White Blood Count 8.4, Red Blood Count 3.86, Hemoglobin 10.4L, Hematocrit 36, Mean Corpuscular Volume 93, Mean Corpuscular Hemoglobin 27, Mean Corpuscular Hemoglobin Concent 29L, Red Cell Distribution Width 18.0H, Platelet Count 319, Mean Platelet Volume 9.3, Immature Granulocyte % (Auto) 0, Neutrophils (%) (Auto) 85H, Lymphocytes (%) (Auto) 7L, Monocytes (%) (Auto) 6, Eosinophils (%) (Auto) 1, Basophils (%) (Auto) 0, Neutrophils # (Auto) 7.2, Lymphocytes # (Auto) 0.6L, Monocytes # (Auto) 0.5, Eosinophils # (Auto) 0.1, Basophils # (Auto) 0.0, Immature Granulocyte # (Auto) 0.0, Neutrophils % (Manual) 81, Lymphocytes % (Manual) 9, Monocytes % (Manual) 8, Eosinophils % (Manual) 1, Atypical Lymphocytes 1, Polychromasia SLIGHT, Hypochromasia SLIGHT, Microcytosis SLIGHT, Erythrocyte Sedimentation Rate 88H, Prothrombin Time 19.1H, INR Comment 1.6H, Activated Partial Thromboplast Time 37H, Sodium Level 134L, Potassium Level 2.7L , Chloride Level 74L, Carbon Dioxide Level 45H, Anion Gap 15H, Blood Urea Ni trogen 7, Creatinine 0.64, Estimat Glomerular Filtration Rate 96, BUN/Creatinine Ratio 11, Glucose Level 54*L, Calcium Level 9.2, Corrected Calcium 9.6, Magnesium Level 1.7, Total Bilirubin 0.8, Aspartate Amino Transf (AST/SGOT) 20, Alanine Aminotransferase (ALT/SGPT) 14, Alkaline Phosphatase 60, Lactate Dehydrogenase 245H, Total Creatine Kinase 112, Creatine Kinase MB 3.3, Myoglobin 145.2H, Troponin I < 0.028, C-Reactive Protein High Sensitivity 3.05H, B-Type Natriuretic Peptide 78.0, Total Protein 7.1, Albumin 3.5, Amylase Level 483H, Lipase 9, Procalcitonin 0.07, TSH Osborne Testing 0.55, Serum Alcohol < 10 11/04/21 00:50: Coronavirus (COVID-19)(PCR) Negative, SARS-CoV-2 RNA (RT-PCR) Not Detected 11/04/21 00:52: Glucometer 31*L 11/04/21 01:00: Lactic Acid Level 1.17 11/04/21 01:20: Urine Color YELLOW, Urine Clarity CLEAR, Urine pH 8.0, Urine Specific [place] 1.015L, Urine Protein 1+H, Urine Glucose (UA) NEGATIVE, Urine Ketones NEGATIVE, Urine Nitrite NEGATIVE, Urine Bilirubin NEGATIVE, Urine Urobilinogen 1.0, Urine Leukocyte Esterase NEGATIVE, Urine RBC (Auto) NEGATIVE, Urine RBC 0-2, Urine WBC RARE, Urine Squamous Epithelial Cells 0-2, Urine Crystals NONE, Urine Bacteria NEGATIVE, Urine Casts PRESENT, Urine Hyaline Casts 2-5H, Urine Mucus MODERATEH, Urine Culture Indicated NO, Urine Opiates Screen NEGATIVE, Urine Oxycodone Screen NEGATIVE, Urine Methadone Screen NEGATIVE, Urine Propoxyphene Screen NEGATIVE, Urine Barbiturates Screen NEGATIVE, Ur Tricyclic Antidepressants Screen NEGATIVE, Urine Phencyclidine Screen NEGATIVE, Urine Amphetamines Screen NEGATIVE, Urine Methamphetamines Screen NEGATIVE, Urine Benzodiazepines Screen NEGATIVE, Urine Cocaine Screen NEGATIVE, Urine Cannabinoids Screen NEGATIVE 11/04/21 01:28: Blood Gas Puncture Site RIGHT RADIAL, Blood Gas Patient Temperature 35.5, Arterial Blood pH 7.38, Arterial Blood Partial Pressure CO2 90*H, Arterial Blood Partial Pressure O2 81, Arterial Blood HCO3 53*H, Arterial Blood Total CO2 55.6 *H, Arterial Blood Oxygen Saturation 98, Arterial Blood Base Excess 25.5H, Zach Test UNKNOWN, Blood Gas Ventilator Setting NO, Blood Gas Inspired Oxygen 5L 11/04/21 01:36: Glucometer 58*L 11/04/21 02:07: Mean Blood Glucose 105, Hemoglobin A1c 5.3 11/04/21 02:50: Glucometer 38*L 11/04/21 04:00: Glucometer 99 11/04/21 04:35: Glucometer 41*L 11/04/21 05:02: Glucometer 13*L 11/04/21 05:09: Glucometer 37*L 11/04/21 08:10: Sodium Level 132L, Potassium Level 2.9L, Chloride Level 76L, Carbon Dioxide Level 43H, Anion Gap 13, Blood Urea Nitrogen 5L, Creatinine 0.61, Estimat Glomerular Filtration Rate 97, BUN/Creatinine Ratio 8, Glucose Level 98, Calcium Level 8.8 11/04/21 08:31: Blood Gas Puncture Site RIGHT RADIAL, Blood Gas Patient Temperature 37.2, Arterial Blood pH 7.39, Arterial Blood Partial Pressure CO2 87*H, Arterial Blood Partial Pressure O2 66L, Arterial Blood HCO3 51*H, Arterial Blood Total CO2 53.7*H, Arterial Blood Oxygen Saturation 93L, Arterial Blood Base Excess 24.4H, Zach Test YES-POS, Blood Gas Ventilator Setting YES, Blood Gas Inspired Oxygen 50% 11/04/21 09:54: Glucometer 51*L 11/04/21 10:26: Glucometer 33*L 11/04/21 11:55: Glucometer 83 11/04/21 12:10: Glucose Level 71 11/04/21 13:30: Ammonia 26 11/04/21 13:56: Glucometer 28*L 11/04/21 14:19: Glucometer 25*L 11/04/21 14:52: Glucometer 54*L 11/04/21 15:49: Glucometer 73 11/04/21 17:05: Potassium Level 4.2 11/04/21 17:13: Glucometer 71 11/04/21 18:06: Glucometer 57*L 11/04/21 19:16: Glucometer 160H 11/04/21 20:28: Glucometer 104 11/04/21 22:16: Glucometer 91 11/05/21 00:08: Glucometer 68L 11/05/21 02:24: Glucometer 88 11/05/21 03:52: White Blood Count 6.3, Red Blood Count 3.72L, Hemoglobin 10.0L, Hematocrit 35, Mean Corpuscular Volume 93, Mean Corpuscular Hemoglobin 27, Mean Corpuscular Hemoglobin Concent 29L, Red Cell Distribution Width 18.1H, Platelet Count 293, Mean Platelet Volume 9.0, Immature Granulocyte % (Auto) 0, Neutrophils (%) (Auto) 66, Lymphocytes (%) (Auto) 20, Monocytes (%) (Auto) 9, Eosinophils (%) (Auto) 3, Basophils (%) (Auto) 1, Neutrophils # (Auto) 4.1, Lymphocytes # (Auto) 1.3, Monocytes # (Auto) 0.6, Eosinophils # (Auto) 0.2, Basophils # (Auto) 0.0, Immature Granulocyte # (Auto) 0.0, Sodium Level 129L, Potassium Level 4.4, Chloride Level 79L, Carbon Dioxide Level 38H, Anion Gap 12, Blood Urea Nitrogen 4L, Creatinine 0.61, Estimat Glomerular Filtration Rate 97, BUN/Creatinine Ratio 7, Glucose Level 108H, Calcium Level 8.9, Corrected Calcium 9.4, Phosphorus Level 3.6, Magnesium Level 2.2, Total Bilirubin 0.8, Aspartate Amino Transf (AST/SGOT) 17, Alanine Aminotransferase (ALT/SGPT) 15, Alkaline Phosphatase 59, Total Protein 7.0, Albumin 3.4 11/05/21 06:08: Glucometer 93 11/05/21 07:33: Glucometer 79 11/05/21 08:24: Blood Gas Puncture Site RT RADIAL, Blood Gas Patient Temperature 36.5, Arterial Blood pH 7.34*L, Arterial Blood Partial Pressure CO2 91*H, Arterial Blood Partial Pressure O2 70L, Arterial Blood HCO3 48*H, Arterial Blood Total CO2 51.1*H, Arterial Blood Oxygen Saturation 96, Arterial Blood Base Excess 21.3H, Zach Test YES-POS, Blood Gas Ventilator Setting NO, Blood Gas Inspired Oxygen 50% 11/05/21 08:41: Glucometer 49*L 11/05/21 09:26: Glucometer 135H 11/05/21 11:16: Glucometer 237H 11/05/21 13:07: Glucometer 223H 11/05/21 14:56: Glucometer 227H 11/05/21 16:51: Glucometer 218H 11/05/21 18:52: Glucometer 210H 11/05/21 21:46: Glucometer 170H 11/05/21 23:05: Glucometer 194H 11/06/21 02:40: Glucometer 151H 11/06/21 05:16: Glucometer 164H 11/06/21 05:46: White Blood Count 5.1, Red Blood Count 3.51L, Hemoglobin 9.4L, Hematocrit 33L, Mean Corpuscular Volume 95, Mean Corpuscular Hemoglobin 27, Mean Corpuscular Hemoglobin Concent 28L, Red Cell Distribution Width 17.9H, Platelet Count 265, Mean Platelet Volume 9.3, Immature Granulocyte % (Auto) 1, Neutrophils (%) (Auto) 69, Lymphocytes (%) (Auto) 18, Monocytes (%) (Auto) 9, Eosinophils (%) (Auto) 3, Basophils (%) (Auto) 1, Neutrophils # (Auto) 3.5, Lymphocytes # (Auto) 0.9L, Monocytes # (Auto) 0.5, Eosinophils # (Auto) 0.2, Basophils # (Auto) 0.0, Immature Granulocyte # (Auto) 0.0, Sodium Level 132L, Potassium Level 4.3, Chloride Level 81L, Carbon Dioxide Level 42H, Anion Gap 9, Blood Urea Nitrogen 6L, Creatinine 0.64, Estimat Glomerular Filtration Rate 96, BUN/Creatinine Ratio 9, Glucose Level 187H, Calcium Level 8.9, Corrected Calcium 9.5, Magnesium Level 2.1, Total Bilirubin 0.9, Aspartate Amino Transf (AST/SGOT) 10, Alanine Aminotransferase (ALT/SGPT) 16, Alkaline Phosphatase 58, Total Protein 6.7, Albumin 3.2 11/06/21 08:05: Glucometer 161H 11/06/21 10:40: Glucometer 242H 11/06/21 16:41: Glucometer 258H 11/06/21 21:21: Glucometer 198H 11/07/21 05:31: Glucometer 158H 11/07/21 06:07: White Blood Count 5.5, Red Blood Count 3.28L, Hemoglobin 9.0L, Hematocrit 31L, Mean Corpuscular Volume 94, Mean Corpuscular Hemoglobin 27, Mean Corpuscular Hemoglobin Concent 29L, Red Cell Distribution Width 17.6H, Platelet Count 248, Mean Platelet Volume 8.9L, Immature Granulocyte % (Auto) 1, Neutrophils (%) (Auto) 74, Lymphocytes (%) (Auto) 13, Monocytes (%) (Auto) 8, Eosinophils (%) (Auto) 3, Basophils (%) (Auto) 1, Neutrophils # (Auto) 4.1, Lymphocytes # (Auto) 0.7L, Monocytes # (Auto) 0.4, Eosinophils # (Auto) 0.2, Basophils # (Auto) 0.0, Immature Granulocyte # (Auto) 0.1, Sodium Level 134L, Potassium Level 3.8, Chloride Level 79L, Carbon Dioxide Level 46*H, Anion Gap 9, Blood Urea Nitrogen 5L, Creatinine 0.60, Estimat Glomerular Filtration Rate 98, BUN/Creatinine Ratio 8, Glucose Level 182H, Calcium Level 8.8, Corrected Calcium 9.5, Magnesium Level 1.8, Total Bilirubin 0.8, Aspartate Amino Transf (AST/SGOT) 10, Alanine Aminotransferase (ALT/SGPT) 16, Alkaline Phosphatase 55, Total Protein 6.5, Albumin 3.1L 11/07/21 09:10: Glucometer 191H 11/07/21 11:06: Glucometer 286H 11/07/21 16:39: Glucometer 211H 11/07/21 21:18: Glucometer 186H 11/08/21 05:02: Glucometer 183H 11/08/21 06:21: White Blood Count 3.6L, Red Blood Count 4.34, Hemoglobin 11.7#, Hematocrit 41, Mean Corpuscular Volume 95, Mean Corpuscular Hemoglobin 27, Mean Corpuscular Hemoglobin Concent 29L, Red Cell Distribution Width 17.6H, Platelet Count 212, Mean Platelet Volume 9.2, Immature Granulocyte % (Auto) 1, Neutrophils (%) (Auto) 69, Lymphocytes (%) (Auto) 18, Monocytes (%) (Auto) 8, Eosinophils (%) (Auto) 3, Basophils (%) (Auto) 1, Neutrophils # (Auto) 2.5, Lymphocytes # (Auto) 0.7L, Monocytes # (Auto) 0.3, Eosinophils # (Auto) 0.1, Basophils # (Auto) 0.0, Immature Granulocyte # (Auto) 0.0, Sodium Level 135, Potassium Level 3.0L, Chloride Level 82L, Carbon Dioxide Level 43H, Anion Gap 10, Blood Urea Nitrogen 6L, Creatinine 0.66, Estimat Glomerular Filtration Rate 95, BUN/Creatinine Ratio 9, Glucose Level 184H, Calcium Level 9.0, Corrected Calcium 9.6, Magnesium Level 2.0, Total Bilirubin 0.8, Aspartate Amino Transf (AST/SGOT) 10, Alanine Aminotransferase (ALT/SGPT) 12, Alkaline Phosphatase 56, Total Protein 6.7, Albumin 3.2 11/08/21 11:22: Glucometer 247H 11/08/21 16:10: Glucometer 222H 11/08/21 20:51: Glucometer 63L 11/08/21 22:35: Glucometer 97 11/09/21 00:45: Glucometer 200H 11/09/21 05:04: Glucometer 169H 11/09/21 07:35: White Blood Count 5.7, Red Blood Count 3.81, Hemoglobin 10.3L, Hematocrit 36, Mean Corpuscular Volume 96, Mean Corpuscular Hemoglobin 27, Mean Corpuscular Hemoglobin Concent 28L, Red Cell Distribution Width 17.6H, Platelet Count 255, Mean Platelet Volume 8.8L, Immature Granulocyte % (Auto) 1, Neutrophils (%) (Auto) 75, Lymphocytes (%) (Auto) 13, Monocytes (%) (Auto) 7, Eosinophils (%) (Auto) 3, Basophils (%) (Auto) 1, Neutrophils # (Auto) 4.3, Lymphocytes # (Auto) 0.8L, Monocytes # (Auto) 0.4, Eosinophils # (Auto) 0.2, Basophils # (Auto) 0.0, Immature Granulocyte # (Auto) 0.1, Sodium Level 136, Potassium Level 3.1L, Chloride Level 82L, Carbon Dioxide Level 41H, Anion Gap 13, Blood Urea Nitrogen 7, Creatinine 0.69, Estimat Glomerular Filtration Rate 94, BUN/Creatinine Ratio 10, Glucose Level 165H, Calcium Level 9.2, Corrected Calcium 9.8, Magnesium Level 1.9, Total Bilirubin 0.8, Aspartate Amino Transf (AST/SGOT) 8, Alanine Aminotransferase (ALT/SGPT) 14, Alkaline Phosphatase 57, Total Protein 7.2, Albumin 3.3 11/09/21 11:36: Glucometer 164H Microbiology 11/04/21 MRSA Screen - Final, Complete MRSA not isolated 11/04/21 Blood Culture - Final, Complete No growth Pending Labs Microbiology Date/Time Source Procedure Growth Status 11/04/21 06:11 Nasal MRSA Screen - Final MRSA not isolated Complete 11/04/21 00:45 Peripheral Not Otherwise Specified Blood Culture - Final No growth Complete 11/04/21 00:05 Peripheral Rt Ac Blood Culture - Final No growth Complete Laboratory Tests 11/04/21 00:43: Influenza Type A Antigen NEGATIVE, Influenza Type B Antigen NEGATIVE 11/04/21 00:45: White Blood Count 8.4, Red Blood Count 3.86, Hemoglobin 10.4, Hematocrit 36, Mean Corpuscular Volume 93, Mean Corpuscular Hemoglobin 27, Mean Corpuscular Hemoglobin Concent 29, Red Cell Distribution Width 18.0, Platelet Count 319, Mean Platelet Volume 9.3, Immature Granulocyte % (Auto) 0, Neutrophils (%) (Auto) 85, Lymphocytes (%) (Auto) 7, Monocytes (%) (Auto) 6, Eosinophils (%) (Auto) 1, Basophils (%) (Auto) 0, Neutrophils # (Auto) 7.2, Lymphocytes # (Auto) 0.6, Monocytes # (Auto) 0.5, Eosinophils # (Auto) 0.1, Basophils # (Auto) 0.0, Immature Granulocyte # (Auto) 0.0, Neutrophils % (Manual) 81, Lymphocytes % (Manual) 9, Monocytes % (Manual) 8, Eosinophils % (Manual) 1, Atypical Lymphocytes 1, Polychromasia SLIGHT, Hypochromasia SLIGHT, Microcytosis SLIGHT, Erythrocyte Sedimentation Rate 88, Prothrombin Time 19.1, INR Comment 1.6, Activated Partial Thromboplast Time 37, Sodium Level 134, Potassium Level 2.7, Chloride Level 74, Carbon Dioxide Level 45, Anion Gap 15, Blood Urea Nitrogen 7, Creatinine 0.64, Estimat Glomerular Filtration Rate 96, BUN/Creatinine Ratio 11, Glucose Level 54, Calcium Level 9.2, Corrected Calcium 9.6, Magnesium Level 1.7, Total Bilirubin 0.8, Aspartate Amino Transf (AST/SGOT) 20, Alanine Aminotransferase (ALT/SGPT) 14, Alkaline Phosphatase 60, Lactate Dehydrogenase 245, Total Creatine Kinase 112, Creatine Kinase MB 3.3, Myoglobin 145.2, Troponin I < 0.028, C-Reactive Protein High Sensitivity 3.05, B-Type Natriuretic Peptide 78.0, Total Protein 7.1, Albumin 3.5, Amylase Level 483, Lipase 9, Procalcitonin 0.07, TSH Osborne Testing 0.55, Serum Alcohol < 10 11/04/21 00:50: Coronavirus (COVID-19)(PCR) Negative, Influenza Type A (RT-PCR) [Pending], Influenza Type B (RT-PCR) [Pending], SARS-CoV-2 RNA (RT-PCR) Not Detected 11/04/21 00:52: Glucometer 31 11/04/21 01:00: Lactic Acid Level 1.17 11/04/21 01:20: Urine Color YELLOW, Urine Clarity CLEAR, Urine pH 8.0, Urine Specific [place] 1.015, Urine Protein 1+, Urine Glucose (UA) NEGATIVE, Urine Ketones NEGATIVE, Urine Nitrite NEGATIVE, Urine Bilirubin NEGATIVE, Urine Urobilinogen 1.0, Urine Leukocyte Esterase NEGATIVE, Urine RBC (Auto) NEGATIVE, Urine RBC 0-2, Urine WBC RARE, Urine Squamous Epithelial Cells 0-2, Urine Crystals NONE, Urine Bacteria NEGATIVE, Urine Casts PRESENT, Urine Hyaline Casts 2-5, Urine Mucus MODERATE, Urine Culture Indicated NO, Urine Opiates Screen NEGATIVE, Urine Oxycodone Screen NEGATIVE, Urine Methadone Screen NEGATIVE, Urine Propoxyphene Screen NEGATIVE, Urine Barbiturates Screen NEGATIVE, Ur Tricyclic Antidepressants Screen NEGATIVE, Urine Phencyclidine Screen NEGATIVE, Urine Amphetamines Screen NEGATIVE, Urine Methamphetamines Screen NEGATIVE, Urine Benzodiazepines Screen NEGATIVE, Urine Cocaine Screen NEGATIVE, Urine Cannabinoids Screen NEGATIVE 11/04/21 01:28: Blood Gas Puncture Site RIGHT RADIAL, Blood Gas Patient Temperature 35.5, Arterial Blood pH 7.38, Arterial Blood Partial Pressure CO2 90, Arterial Blood Partial Pressure O2 81, Arterial Blood HCO3 53, Arterial Blood Total CO2 55.6, Arterial Blood Oxygen Saturation 98, Arterial Blood Base Excess 25.5, Zach Test UNKNOWN, Blood Gas Ventilator Setting NO, Blood Gas Inspired Oxygen 5L 11/04/21 01:36: Glucometer 58 11/04/21 02:07: Mean Blood Glucose 105, Hemoglobin A1c 5.3 11/04/21 02:50: Glucometer 38 11/04/21 04:00: Glucometer 99 11/04/21 04:35: Glucometer 41 11/04/21 05:02: Glucometer 13 11/04/21 05:09: Glucometer 37 11/04/21 08:10: Sodium Level 132, Potassium Level 2.9, Chloride Level 76, Carbon Dioxide Level 43, Anion Gap 13, Blood Urea Nitrogen 5, Creatinine 0.61, Estimat Glomerular Filtration Rate 97, BUN/Creatinine Ratio 8, Glucose Level 98, Calcium Level 8.8 11/04/21 08:31: Blood Gas Puncture Site RIGHT RADIAL, Blood Gas Patient Temperature 37.2, Arterial Blood pH 7.39, Arterial Blood Partial Pressure CO2 87, Arterial Blood Partial Pressure O2 66, Arterial Blood HCO3 51, Arterial Blood Total CO2 53.7, Arterial Blood Oxygen Saturation 93, Arterial Blood Base Excess 24.4, Zach Test YES-POS, Blood Gas Ventilator Setting YES, Blood Gas Inspired Oxygen 50% 11/04/21 09:54: Glucometer 51 11/04/21 10:26: Glucometer 33 11/04/21 11:55: Glucometer 83 11/04/21 12:10: Glucose Level 71 11/04/21 13:30: Ammonia 26 11/04/21 13:56: Glucometer 28 11/04/21 14:19: Glucometer 25 11/04/21 14:52: Glucometer 54 11/04/21 15:49: Glucometer 73 11/04/21 17:05: Potassium Level 4.2 11/04/21 17:13: Glucometer 71 11/04/21 18:06: Glucometer 57 11/04/21 19:16: Glucometer 160 11/04/21 20:28: Glucometer 104 11/04/21 22:16: Glucometer 91 11/05/21 00:08: Glucometer 68 11/05/21 02:24: Glucometer 88 11/05/21 03:52: White Blood Count 6.3, Red Blood Count 3.72, Hemoglobin 10.0, Hematocrit 35, Mean Corpuscular Volume 93, Mean Corpuscular Hemoglobin 27, Mean Corpuscular Hemoglobin Concent 29, Red Cell Distribution Width 18.1, Platelet Count 293, Mean Platelet Volume 9.0, Immature Granulocyte % (Auto) 0, Neutrophils (%) (Auto) 66, Lymphocytes (%) (Auto) 20, Monocytes (%) (Auto) 9, Eosinophils (%) (Auto) 3, Basophils (%) (Auto) 1, Neutrophils # (Auto) 4.1, Lymphocytes # (Auto) 1.3, Monocytes # (Auto) 0.6, Eosinophils # (Auto) 0.2, Basophils # (Auto) 0.0, Immature Granulocyte # (Auto) 0.0, Sodium Level 129, Potassium Level 4.4, Chloride Level 79, Carbon Dioxide Level 38, Anion Gap 12, Blood Urea Nitrogen 4, Creatinine 0.61, Estimat Glomerular Filtration Rate 97, BUN/Creatinine Ratio 7, Glucose Level 108, Calcium Level 8.9, Corrected Calcium 9.4, Phosphorus Level 3.6, Magnesium Level 2.2, Total Bilirubin 0.8, Aspartate Amino Transf (AST/SGOT) 17, Alanine Aminotransferase (ALT/SGPT) 15, Alkaline Phosphatase 59, Total Protein 7.0, Albumin 3.4 11/05/21 06:08: Glucometer 93 11/05/21 07:33: Glucometer 79 11/05/21 08:24: Blood Gas Puncture Site RT RADIAL, Blood Gas Patient Temperature 36.5, Arterial Blood pH 7.34, Arterial Blood Partial Pressure CO2 91, Arterial Blood Partial Pressure O2 70, Arterial Blood HCO3 48, Arterial Blood Total CO2 51.1, Arterial Blood Oxygen Saturation 96, Arterial Blood Base Excess 21.3, Zach Test YES-POS, Blood Gas Ventilator Setting NO, Blood Gas Inspired Oxygen 50% 11/05/21 08:41: Glucometer 49 11/05/21 09:26: Glucometer 135 11/05/21 11:16: Glucometer 237 11/05/21 13:07: Glucometer 223 11/05/21 14:56: Glucometer 227 11/05/21 16:51: Glucometer 218 11/05/21 18:52: Glucometer 210 11/05/21 21:46: Glucometer 170 11/05/21 23:05: Glucometer 194 11/06/21 02:40: Glucometer 151 11/06/21 05:16: Glucometer 164 11/06/21 05:46: White Blood Count 5.1, Red Blood Count 3.51, Hemoglobin 9.4, Hematocrit 33, Mean Corpuscular Volume 95, Mean Corpuscular Hemoglobin 27, Mean Corpuscular Hemoglobin Concent 28, Red Cell Distribution Width 17.9, Platelet Count 265, Mean Platelet Volume 9.3, Immature Granulocyte % (Auto) 1, Neutrophils (%) (Auto) 69, Lymphocytes (%) (Auto) 18, Monocytes (%) (Auto) 9, Eosinophils (%) (Auto) 3, Basophils (%) (Auto) 1, Neutrophils # (Auto) 3.5, Lymphocytes # (Auto) 0.9, Monocytes # (Auto) 0.5, Eosinophils # (Auto) 0.2, Basophils # (Auto) 0.0, Immature Granulocyte # (Auto) 0.0, Sodium Level 132, Potassium Level 4.3, Chloride Level 81, Carbon Dioxide Level 42, Anion Gap 9, Blood Urea Nitrogen 6, Creatinine 0.64, Estimat Glomerular Filtration Rate 96, BUN/Creatinine Ratio 9, Glucose Level 187, Calcium Level 8.9, Corrected Calcium 9.5, Magnesium Level 2.1, Total Bilirubin 0.9, Aspartate Amino Transf (AST/SGOT) 10, Alanine Aminotransferase (ALT/SGPT) 16, Alkaline Phosphatase 58, Total Protein 6.7, Albumin 3.2 11/06/21 08:05: Glucometer 161 11/06/21 10:40: Glucometer 242 11/06/21 16:41: Glucometer 258 11/06/21 21:21: Glucometer 198 11/07/21 05:31: Glucometer 158 11/07/21 06:07: White Blood Count 5.5, Red Blood Count 3.28, Hemoglobin 9.0, Hematocrit 31, Mean Corpuscular Volume 94, Mean Corpuscular Hemoglobin 27, Mean Corpuscular He moglobin Concent 29, Red Cell Distribution Width 17.6, Platelet Count 248, Mean Platelet Volume 8.9, Immature Granulocyte % (Auto) 1, Neutrophils (%) (Auto) 74, Lymphocytes (%) (Auto) 13, Monocytes (%) (Auto) 8, Eosinophils (%) (Auto) 3, Basophils (%) (Auto) 1, Neutrophils # (Auto) 4.1, Lymphocytes # (Auto) 0.7, Monocytes # (Auto) 0.4, Eosinophils # (Auto) 0.2, Basophils # (Auto) 0.0, Immature Granulocyte # (Auto) 0.1, Sodium Level 134, Potassium Level 3.8, Chloride Level 79, Carbon Dioxide Level 46, Anion Gap 9, Blood Urea Nitrogen 5, Creatinine 0.60, Estimat Glomerular Filtration Rate 98, BUN/Creatinine Ratio 8, Glucose Level 182, Calcium Level 8.8, Corrected Calcium 9.5, Magnesium Level 1.8, Total Bilirubin 0.8, Aspartate Amino Transf (AST/SGOT) 10, Alanine Aminotransferase (ALT/SGPT) 16, Alkaline Phosphatase 55, Total Protein 6.5, Albumin 3.1 11/07/21 09:10: Glucometer 191 11/07/21 11:06: Glucometer 286 11/07/21 16:39: Glucometer 211 11/07/21 21:18: Glucometer 186 11/08/21 05:02: Glucometer 183 11/08/21 06:21: White Blood Count 3.6, Red Blood Count 4.34, Hemoglobin 11.7, Hematocrit 41, Mean Corpuscular Volume 95, Mean Corpuscular Hemoglobin 27, Mean Corpuscular Hemoglobin Concent 29, Red Cell Distribution Width 17.6, Platelet Count 212, Mean Platelet Volume 9.2, Immature Granulocyte % (Auto) 1, Neutrophils (%) (Auto) 69, Lymphocytes (%) (Auto) 18, Monocytes (%) (Auto) 8, Eosinophils (%) (Auto) 3, Basophils (%) (Auto) 1, Neutrophils # (Auto) 2.5, Lymphocytes # (Auto) 0.7, Monocytes # (Auto) 0.3, Eosinophils # (Auto) 0.1, Basophils # (Auto) 0.0, Immature Granulocyte # (Auto) 0.0, Sodium Level 135, Potassium Level 3.0, Chloride Level 82, Carbon Dioxide Level 43, Anion Gap 10, Blood Urea Nitrogen 6, Creatinine 0.66, Estimat Glomerular Filtration Rate 95, BUN/Creatinine Ratio 9, Glucose Level 184, Calcium Level 9.0, Corrected Calcium 9.6, Magnesium Level 2.0, Total Bilirubin 0.8, Aspartate Amino Transf (AST/SGOT) 10, Alanine Aminotransferase (ALT/SGPT) 12, Alkaline Phosphatase 56, Total Protein 6.7, Albumin 3.2 11/08/21 11:22: Glucometer 247 11/08/21 16:10: Glucometer 222 11/08/21 20:51: Glucometer 63 11/08/21 22:35: Glucometer 97 11/09/21 00:45: Glucometer 200 11/09/21 05:04: Glucometer 169 11/09/21 07:35: White Blood Count 5.7, Red Blood Count 3.81, Hemoglobin 10.3, Hematocrit 36, Mean Corpuscular Volume 96, Mean Corpuscular Hemoglobin 27, Mean Corpuscular Hemoglobin Concent 28, Red Cell Distribution Width 17.6, Platelet Count 255, Mean Platelet Volume 8.8, Immature Granulocyte % (Auto) 1, Neutrophils (%) (Auto) 75, Lymphocytes (%) (Auto) 13, Monocytes (%) (Auto) 7, Eosinophils (%) (Auto) 3, Basophils (%) (Auto) 1, Neutrophils # (Auto) 4.3, Lymphocytes # (Auto) 0.8, Monocytes # (Auto) 0.4, Eosinophils # (Auto) 0.2, Basophils # (Auto) 0.0, Immature Granulocyte # (Auto) 0.1, Sodium Level 136, Potassium Level 3.1, Chloride Level 82, Carbon Dioxide Level 41, Anion Gap 13, Blood Urea Nitrogen 7, Creatinine 0.69, Estimat Glomerular Filtration Rate 94, BUN/Creatinine Ratio 10, Glucose Level 165, Calcium Level 9.2, Corrected Calcium 9.8, Magnesium Level 1.9, Total Bilirubin 0.8, Aspartate Amino Transf (AST/SGOT) 8, Alanine Aminotransferase (ALT/SGPT) 14, Alkaline Phosphatase 57, Total Protein 7.2, Albumin 3.3 11/09/21 11:36: Glucometer 164 Discharge Home Medications: Active Scripts Active Comfort Touch Pen Needle (Pen Needle, Diabetic) 1 Each Dis.needle Each ACHS Levemir Flextouch (Insulin Detemir) 100 Unit/1 Ml Insuln.pen 8 Unit SQ BID Novolog Flexpen (Insulin Aspart) 300 Units/3 Ml Solution 4 Units SQ AC Nystatin 15 Gm Cream..g. 0 Gm TP TID Deep Sea (Sodium Chloride) 44 Ml [place] 0 Ml NA QID PRN Acetazolamide 250 Mg Tablet 250 Mg PO BID HYDROcodone/APAP 5 MG/325 MG TAB (Acetaminophen/Hydrocodone Bitart) 1 Tab Tab 1 Ea PO Q4H PRN Reported Albuterol Sulfate 2.5 Mg/3 Ml Vial.neb 3 Ml NEB Q6H PRN Aripiprazole 20 Mg Tablet 20 Mg PO DAILY Jennifer Allergy (Fexofenadine HCl) 180 Mg Tablet 180 Mg PO DAILY Olopatadine HCl 2.5 Ml Drops 1 Drop OU HS Lidocaine 5% Patch (Lidocaine) 1 Each Adh..patch 1 Pat TD DAILY APPLY TO LEFT SHOULDER- REMOVE AFTER 12 HOURS Isosorbide Mononitrate ER (Isosorbide Mononitrate) 60 Mg Tab 60 Mg PO DAILY Pantoprazole Sodium 20 Mg Tablet.dr 20 Mg PO DAILY Furosemide 40 Mg Tablet 40 Mg PO DAILY K-Tab ER (Potassium Chloride) 10 Meq Tablet.er 20 Meq PO BID TAKES 2 (10 MEQ) TABLETS Eliquis (Apixaban) 5 Mg Tablet 5 Mg PO BID Ventolin Hfa (Albuterol Sulfate) 18 Gm Hfa.aer.ad 2 Puff INH QID PRN Levothyroxine Sodium 25 Mcg Tablet 25 Mcg PO DAILY Zafirlukast 20 Mg Tablet 20 Mg PO BID Lamotrigine 25 Mg Tablet 25 Mg PO BID Instructions to patient/family Please see electronic discharge instructions given to patient. Diagnosis/Problems Diagnosis/Problems (1) Severe diabetic hypoglycemia Status: Acute (2) Chronic atrial fibrillation Status: Acute (3) Obesity hypoventilation syndrome LISA ACHARYA DO Nov 09, 2021 10:53
[2021-11-09 14:46] VITALS: BP 124/65
== END 2021-11-09 14:48 | disposition home or self-care (01) | DRG 638 ==
LOC: EDUNIT# 00:33 → ER 00:34 → ICU 02:50 → 4TH 11-05 20:00
PROVIDERS: ADMIT Internal Medicine; ATTEND Internal Medicine
PROC: 5A09357 Assistance with Respiratory Ventilation, Less than 24 Consecutive Hours, Continuous Positive Airway Pressure (ICD-10-PCS; principal; 2021-11-04)
PROC: 5A0935A Assistance with Respiratory Ventilation, Less than 24 Consecutive Hours, High Flow/Velocity Cannula (ICD-10-PCS; 2021-11-07)
DX: E11.649 Type 2 diabetes mellitus with hypoglycemia without coma (principal); E87.1 Hypo-osmolality and hyponatremia; J96.12 Chronic respiratory failure with hypercapnia; E66.2 Morbid (severe) obesity with alveolar hypoventilation; Z68.41 Body mass index [BMI] 40.0-44.9, adult; I48.20 Chronic atrial fibrillation, unspecified; E87.2 Acidosis; E11.65 Type 2 diabetes mellitus with hyperglycemia; Z79.84 Long term (current) use of oral hypoglycemic drugs; E87.6 Hypokalemia; J44.9 Chronic obstructive pulmonary disease, unspecified; F17.210 Nicotine dependence, cigarettes, uncomplicated; I11.0 Hypertensive heart disease with heart failure; I50.9 Heart failure, unspecified; Z79.01 Long term (current) use of anticoagulants; E78.00 Pure hypercholesterolemia, unspecified; F03.90 Unspecified dementia, unspecified severity, without behavioral disturbance, psychotic disturbance, mood disturbance, and anxiety; R32 Unspecified urinary incontinence; K21.9 Gastro-esophageal reflux disease without esophagitis; F41.9 Anxiety disorder, unspecified; F31.9 Bipolar disorder, unspecified; D50.9 Iron deficiency anemia, unspecified; S70.02XA Contusion of left hip, initial encounter; W19.XXXA Unspecified fall, initial encounter; I27.20 Pulmonary hypertension, unspecified; Z91.14 Patient's other noncompliance with medication regimen; Z20.822 Contact with and (suspected) exposure to COVID-19; Z79.52 Long term (current) use of systemic steroids; Z88.1 Allergy status to other antibiotic agents; Z88.8 Allergy status to other drugs, medicaments and biological substances
CPT/HCPCS: 36410; 36415; 70450; 71045; 71250; 74176; 76937; 80048; 80053; 80306; 80320; 81000; 82140; 82150; 82550; 82553; 82805; 82947; 83036; 83605; 83615; 83690; 83735; 83874; 83880; 84100; 84132; 84145; 84443; 84484; 85007; 85025; 85027; 85610; 85652; 85730; 86141; 87040; 87081; 87635; 87636; 87804; 93005; 93041; 94640; 94660; 94664; 94760; 96374; 96376; 99291

== ENCOUNTER 2021-11-15 14:30 | Inpatient (IN) | payer MEDICARE, MEDICAID ==
[~2021-11-15] VITALS: Ht 162.6 cm; Wt 116.1 kg
[2021-11-15] VITALS (8 sets, daily range): BP systolic 93–122; BP diastolic 62–78
[~2021-11-15 14:30] MED LIST changes: +ACHD5005 PO; +ARIP20TA20 PO; +INSU100I14 SQ; +INSU100I29 SQ; +NYST15CR TP; +SODI44SP2; +[UNRECOGNIZED DRUG - CODE] MC
[2021-11-15] MEDS ORDERED: NS IV 1000 ML 1,000 ML IV SCH (14:45)
[2021-11-15 14:57] LABS: BASOPHILS % (AUTO) 0 % (0-10); EOSINOPHILS % (AUTO) 0 % (0-10); HEMATOCRIT 34 % (35-52); HEMOGLOBIN 9.8 g/dL (11.5-16.0); LYMPHOCYTES # (AUTO) 0.5 10^3/uL (1.0-4.0); LYMPHOCYTES % (AUTO) 7 % (12-44); MEAN CORPUSCULAR HEMOGLOBIN 27 pg (25-34); MEAN CORPUSCULAR HGB CONC 29 g/dL (32-36); MEAN CORPUSCULAR VOLUME 95 fL (80-99); MONOCYTES # (AUTO) 0.3 10^3/uL (0.0-1.0); MONOCYTES % (AUTO) 4 % (0-12); NEUTROPHILS # (AUTO) 5.8 10^3/uL (1.8-7.8); NEUTROPHILS % (AUTO) 87 % (42-75); PLATELET COUNT 200 10^3/uL (130-400); WHITE BLOOD COUNT 6.7 10^3/uL (4.3-11.0)
--- NOTE | 2021-11-15 15:15 | Diagnostic Imaging Report ---
HISTORY: Shortness of breath, altered mental status, low oxygen saturation. COMPARISON: 11/04/2021. TECHNIQUE: Frontal view of the chest. FINDINGS: There is moderate cardiomegaly. There are perihilar airspace opacities. No large effusion or pneumothorax is seen. IMPRESSION: 1. Cardiomegaly with perihilar airspace opacities, may be due to edema. Dictated by: Dictated on workstation # [id number]
[2021-11-15 15:17] LABS: ABG BASE EXCESS 19.8 MMOL/L (-2.5-2.5); ABG OXYGEN SATURATION 93 % (94-100); ABG PO2 70 MMHG (79-93)
[2021-11-15 15:18] LABS: INR 1.3 (0.8-1.4); PROTHROMBIN TIME PATIENT 16.4 SEC (12.2-14.7)
[2021-11-15 15:20] LABS: ABG PCO2 99 MMHG (35-45); ABG TCO2 50.3 MMOL/L (21.0-31.0); ALLENS TEST YES-POS; INSPIRED O2 5; PATIENT TEMP 36.7; VENTILATOR NO
[2021-11-15 15:21] LABS: ALBUMIN 3.6 GM/DL (3.2-4.5); CHLORIDE 78 MMOL/L (98-107); POTASSIUM 3.6 MMOL/L (3.6-5.0); SODIUM 132 MMOL/L (135-145)
[2021-11-15 15:22] LABS: AMYLASE 21 U/L (25-125); CALCIUM 9.1 MG/DL (8.5-10.1)
[2021-11-15 15:23] LABS: GLUCOSE 231 MG/DL (70-105)
[2021-11-15 15:24] LABS: TOTAL PROTEIN 7.3 GM/DL (6.4-8.2)
[2021-11-15 15:25] LABS: BILIRUBIN,TOTAL 0.7 MG/DL (0.1-1.0); CARBON DIOXIDE 44 MMOL/L (21-32)
[2021-11-15 15:27] LABS: ALKALINE PHOSPHATASE 71 U/L (40-136); CREATININE SERUM 0.66 MG/DL (0.60-1.30); GFR ESTIMATED 95
[2021-11-15 15:28] LABS: BUN/CREATININE RATIO 11
[2021-11-15 15:30] LABS: ALANINE AMINOTRANSFERASE 11 U/L (0-55); MAGNESIUM 1.8 MG/DL (1.6-2.4)
[2021-11-15 15:31] LABS: CREATINE KINASE 15 U/L (29-168); LIPASE 5 U/L (8-78)
--- NOTE | 2021-11-15 15:38 | ED General ---
General Chief Complaint: Glucose Problems Stated Complaint: LATHARGIC, HIGH BLOOD SUGAR Nursing Triage Note: PT BROUG[facility] IN BY [facility] [place] STATES PT WAS LETHARGIC AND INCREASED BLOOD SUGAR. PT IS ALERT AND ORIENTED ON ARRIVAL TO ED. Source of Information: Patient (ANGELIKA HISTORIAN), EMS, Old Records, Other (DR. COOK) History of Present Illness Date Seen by Provider: Nov 15, 2021 Allergies and Home Medications Allergies Coded Allergies: clarithromycin (Verified Allergy, Unknown, 11/18/18) moxifloxacin (Verified Allergy, Unknown, 11/18/18) nitrofurantoin (Verified Allergy, Unknown, 11/18/18) penicillin G (Verified Allergy, Unknown, Pt has received Omnicef & cephale sangeetha in the past, 11/19/18) Pt has received Omnicef & cephalexin in the past (from External med history) sulfacetamide (Verified Allergy, Unknown, 11/18/18) trazodone (Verified Allergy, Unknown, 11/18/18) Patient Home Medication List Acetazolamide (Acetazolamide) 250 Mg Tablet, 250 MG PO BID Prescribed by: LISA ACHARYA on 11/09/21 1052 Albuterol Sulfate (Ventolin Hfa) 18 Gm Hfa.aer.ad, 2 PUFF INH QID PRN for SHORTNESS OF BREATH, (Reported) Entered as Reported by: RICKI MCCORMACK on 11/19/18 1120 Albuterol Sulfate (Albuterol Sulfate) 2.5 Mg/3 Ml Vial.neb, 3 ML NEB Q6H PRN for SHORTNESS OF BREATH, (Reported) Entered as Reported by: FRANCIA MARIE on 11/04/21 1151 Apixaban (Eliquis) 5 Mg Tablet, 5 MG PO BID, (Reported) Entered as Reported by: ADEN CALDWELL on 11/30/20 1623 Aripiprazole (Aripiprazole) 20 Mg Tablet, 20 MG PO DAILY, (Reported) Entered as Reported by: FRANCIA MARIE on 11/04/21 1037 Fexofenadine HCl (Jennifer Allergy) 180 Mg Tablet, 180 MG PO DAILY, (Reported) Entered as Reported by: FRANCIA MARIE on 10/12/21 1402 Furosemide (Furosemide) 40 Mg Tablet, 40 MG PO DAILY, (Reported) Entered as Reported by: FRANCIA MARIE on 10/12/211401 Hydrocodone Bit/Acetaminophen (HYDROcodone/APAP 5 MG/325 MG TAB) 1 Tab Tab, 1 EA PO Q4H PRN for PAIN-MODERATE (5-7) Prescribed by: LISA ACHARYA on 11/09/21 105 Insulin Aspart (Novolog Flexpen) 300 Units/3 Ml Solution, 4 UNITS SQ AC Prescribed by: LISA ACHARYA on 11/09/21 105 Insulin Detemir (Levemir Flextouch) 100 Unit/1 Ml Insuln.pen, 8 UNIT SQ BID Prescribed by: LISA ACHARYA on 11/09/21 105 Isosorbide Mononitrate (Isosorbide Mononitrate ER) 60 Mg Tab, 60 MG PO DAILY, (Reported) Entered as Reported by: FRANCIA MARIE on 10/12/211401 Lamotrigine (Lamotrigine) 25 Mg Tablet, 25 MG PO BID, (Reported) Entered as Reported by: RICKI MCCORMACK on 11/19/18 1049 Levothyroxine Sodium (Levothyroxine Sodium) 25 Mcg Tablet, 25 MCG PO DAILY, (Reported) Entered as Reported by: RICKI MCCORMACK on 11/19/18 104 Lidocaine (Lidocaine 5% Patch) 1 Each Adh..patch, 1 PAT TD DAILY, (Reported) Entered as Reported by: FRANCIA MARIE on 10/12/211401 Nystatin (Nystatin) 15 Gm Cream..g., 0 GM TP TID Prescribed by: LISA ACHARYA on 11/09/21 105 Olopatadine HCl (Olopatadine HCl) 2.5 Ml Drops, 1 DROP OU HS, (Reported) Entered as Reported by: FRANCIA MARIE on 10/12/211401 Pantoprazole Sodium (Pantoprazole Sodium) 20 Mg Tablet.dr, 20 MG PO DAILY, (Reported) Entered as Reported by: FRANCIA MARIE on 10/12/211401 Pen Needle, Diabetic (Comfort Touch Pen Needle) 1 Each Dis.needle, EACH [facility] ACHS, (DME) Prescribed by: LISA ACHARYA on 11/09/21 105 Potassium Chloride (K-Tab ER) 10 Meq Tablet.er, 20 MEQ PO BID, (Reported) Entered as Reported by: ADEN CALDWELL on 11/30/20 1623 Sodium Chloride (Deep Sea) 44 Ml [place], 0 ML NA QID PRN for DRY NOSE Prescribed by: LISA ACHARYA on 11/09/21 1052 Zafirlukast (Zafirlukast) 20 Mg Tablet, 20 MG PO BID, (Reported) Entered as Reported by: RICKI MCCORMACK on 11/19/18 1049 Discontinued Medications Glimepiride (Glimepiride) 4 Mg Tablet, 4 MG PO DAILY, (Reported) Entered as Reported by: ADEN CALDWELL on 11/30/20 1623 Metformin HCl (Metformin HCl) 500 Mg Tablet, 500 MG PO BID, (Reported) Entered as Reported by: RICKI MCCORMACK on 11/19/18 1120 Sitagliptin Phosphate (Januvia) 100 Mg Tablet, 100 MG PO DAILY, (Reported) Entered as Reported by: RICKI MCCORMACK on 11/19/18 1049 Past Cjylyld-Nmcyqr-Iwopfo Hx Patient Social History Tobacco Use?: No Use of E-Cig and/or Vaping dev: No Substance use?: No Alcohol Use?: No Pt feels they are or have been: No Immunizations Up To Date First/Initial COVID19 Vaccinat: Faizan and Faizan - 2020 Second COVID19 Vaccination Luis: 2020 Third COVID19 Vaccination Date: Faizan 2020 Past Medical History Surgeries: Yes (HERNIA REPAIR) Abdominal, Section, Gallbladder, Hysterectomy, Tonsillectomy Respiratory: Yes (RESPIRATORY FAILURE;OBESITY HYPOVENTILATION;O2 AT 5L/NC CONTINUOUSLY) Sleep Apnea, COPD Currently Using CPAP: No Currently Using BIPAP: Yes (uses at night) Cardiac: Yes (CHF) Atrial Fibrillation, Chronic Edema/Swelling, High Cholesterol, Hypertension Neurological: Yes Dementia 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 Physical Exam Vital Signs Vital Signs - First Documented 11/15/21 14:30 Pulse 86 Resp 22 B/P (MAP) 135/73 (93) Pulse Ox 100 O2 Delivery Nasal Cannula O2 Flow Rate 5.00 Capillary Refill : Less Than 3 Seconds Height, Weight, BMI Height: 5'4.00" Weight: 256lbs. 1.0oz. 116.052013qa; 43.00 BMI Method: Focused Exam Lactate Level 11/15/21 14:46: Lactic Acid Level 0.66 Lactic Acid Level Laboratory Tests Test 11/15/21 14:46 Lactic Acid Level 0.66 MMOL/L (0.50-2.00) Procedures/Interventions Date of ETT Placement: Nov 18, 2018 Time of ETT Placement: 1843 Progress/Results/Core Measures Suspected Sepsis SIRS Temperature: Pulse: 86 Respiratory Rate: 22 Laboratory Tests 11/15/21 14:46: White Blood Count 6.7 Blood Pressure 135 /73 Mean: 93 11/15/21 14:46: Lactic Acid Level 0.66 Laboratory Tests 11/15/21 14:46: Creatinine 0.66, INR Comment 1.3, Platelet Count 200, Total Bilirubin 0.7 Results/Orders Lab Results Laboratory Tests Test 11/15/21 14:45 11/15/21 14:46 11/15/21 15:11 Range/Units White Blood Count 6.7 4.3-11.0 10^3/uL Red Blood Count 3.63 L 3.80-5.11 10^6/uL Hemoglobin 9.8 L 11.5-16.0 g/dL Hematocrit 34 L 35-52 % Mean Corpuscular Volume 95 80-99 fL Mean Corpuscular Hemoglobin 27 25-34 pg Mean Corpuscular Hemoglobin Concent 29 L 32-36 g/dL Red Cell Distribution Width 17.1 H 10.0-14.5 % Platelet Count 200 130-400 10^3/uL Mean Platelet Volume 9.0 9.0-12.2 fL Immature Granulocyte % (Auto) 1 % Neutrophils (%) (Auto) 87 H 42-75 % Lymphocytes (%) (Auto) 7 L 12-44 % Monocytes (%) (Auto) 4 0-12 % Eosinophils (%) (Auto) 0 0-10 % Basophils (%) (Auto) 0 0-10 % Neutrophils # (Auto) 5.8 1.8-7.8 10^3/uL Lymphocytes # (Auto) 0.5 L 1.0-4.0 10^3/uL Monocytes # (Auto) 0.3 0.0-1.0 10^3/uL Eosinophils # (Auto) 0.0 0.0-0.3 10^3/uL Basophils # (Auto) 0.0 0.0-0.1 10^3/uL Immature Granulocyte # (Auto) 0.1 0.0-0.1 10^3/uL Prothrombin Time 16.4 H 12.2-14.7 SEC INR Comment 1.3 0.8-1.4 Activated Partial Thromboplast Time 35 24-35 SEC Sodium Level 132 L 135-145 MMOL/L Potassium Level 3.6 3.6-5.0 MMOL/L Chloride Level 78 L 98-107 MMOL/L Carbon Dioxide Level 44 H 21-32 MMOL/L Anion Gap 10 5-14 MMOL/L Blood Urea Nitrogen 7 7-18 MG/DL Creatinine 0.66 0.60-1.30 MG/DL Estimat Glomerular Filtration Rate 95 BUN/Creatinine Ratio 11 Glucose Level 231 H 70-105 MG/DL Glucometer 205 H 70-110 MG/DL Lactic Acid Level 0.66 0.50-2.00 MMOL/L Calcium Level 9.1 8.5-10.1 MG/DL Corrected Calcium 9.4 8.5-10.1 MG/DL Magnesium Level 1.8 1.6-2.4 MG/DL Total Bilirubin 0.7 0.1-1.0 MG/DL Aspartate Amino Transf (AST/SGOT) 13 5-34 U/L Alanine Aminotransferase (ALT/SGPT) 11 0-55 U/L Alkaline Phosphatase 71 40-136 U/L Total Creatine Kinase 15 L 29-168 U/L C-Reactive Protein High Sensitivity 1.66 H 0.00-0.50 MG/DL Total Protein 7.3 6.4-8.2 GM/DL Albumin 3.6 3.2-4.5 GM/DL Amylase Level 21 L 25-125 U/L Lipase 5 L 8-78 U/L Blood Gas Puncture Site RR Blood Gas Patient Temperature 36.7 Arterial Blood pH 7.30 *L 7.37-7.43 Arterial Blood Partial Pressure CO2 99 *H 35-45 MMHG Arterial Blood Partial Pressure O2 70 L 79-93 MMHG Arterial Blood HCO3 47 *H 23-27 MMOL/L Arterial Blood Total CO2 50.3 *H 21.0-31.0 MMOL/L Arterial Blood Oxygen Saturation 93 L 94-100 % Arterial Blood Base Excess 19.8 H -2.5-2.5 MMOL/L Zach Test YES-POS Blood Gas Ventilator Setting NO Blood Gas Inspired Oxygen 5 My Orders Orders - SERA CHAVEZ DO Accucheck Stat ONCE (11/15/21 14:45) Ed Iv/Invasive Line Start (11/15/21 14:45) Ekg Tracing (11/15/21:45) Catheter(Urinary) Insert & Ass 03,15 (11/15/21 14:45) O2 (11/15/21 14:45) Monitor-Rhythm Ecg Trace Only (11/15/21 14:45) Amylase (11/15/21 14:45) Arterial Blood Gas (11/15/21 14:45) Bnp [place] (11/15/21 14:45) Cbc With Automated Diff (11/15/21:45) Comprehensive Metabolic Panel (11/15/21 14:45) Creatine Kinase (11/15/21 14:45) Creatine Kinase Mb (11/15/21 14:45) Hs C Reactive Protein (11/15/21 14:45) Lactic Acid Analyzer (11/15/21 14:45) Lipase (11/15/21 14:45) Magnesium (11/15/21 14:45) Protime With Inr (11/15/21 14:45) Partial Thromboplastin Time (11/15/21 14:45) Thyroid Analyzer (11/15/21 14:45) Ua Culture If Indicated (11/15/21 14:45) Erythrocyte Sedimentation Rate (11/15/21 14:45) Myoglobin Serum (11/15/21 14:45) Troponin I [place] (11/15/21 14:45) Ed Iv/Invasive Line Start (11/15/21 14:45) Ns Iv 1000 Ml (Sodium Chloride 0.9%) (11/15/21 14:45) Chest 1 View, Ap/Pa Only (11/15/21 14:45) Procalcitonin (Pct) (11/15/21 14:45) Covid 19 Inhouse Test (11/15/21 14:45) Influenza A And B By Pcr (11/15/21 14:45) Isolation Central Supply Req (11/15/21 14:45) Manual Differential (11/15/21 14:46) Rt Request For Service (11/15/21 15:21) Vital Signs/I&O 11/15/21 14:30 Pulse 86 Resp 22 B/P (MAP) 135/73 (93) Pulse Ox 100 O2 Delivery Nasal Cannula O2 Flow Rate 5.00 Capillary Refill : Less Than 3 Seconds Blood Pressure Mean: 93 Departure Impression Primary Impression: Acute on chronic respiratory failure with hypoxia and hypercapnia Additional Impressions: Altered mental status Uncontrolled diabetes mellitus Unable to care for self Departure-Patient Inst. Referrals: KIRBY JUNG MD (PCP/Family) Primary Care Physician SERA CHAVEZ DO Nov 15, 2021 15:38
[2021-11-15 15:42] LABS: ERYTHROCYTE SEDIMENTATION RATE 113 MM/HR (0-30)
[2021-11-15 15:46] LABS: EOSINOPHILS % (MANUAL) 1 %; LYMPHOCYTES % (MANUAL) 8 %; MONOCYTES % (MANUAL) 3 %; NEUTROPHILS % (MANUAL) 88 %; RBC MORPH NORMAL
[2021-11-15 15:47] LABS: CREATINE KINASE MB 1.3 NG/ML (<6.6)
[2021-11-15 15:53] LABS: TSH (THYROID ANALYZER) 0.41 UIU/ML (0.35-4.94)
[2021-11-15 16:20] LABS: BILIRUBIN,URINE NEGATIVE (NEGATIVE); CLARITY,URINE CLEAR; COLOR,URINE YELLOW; GLUCOSE, URINE (UA) TRACE (NEGATIVE); KETONES,URINE NEGATIVE (NEGATIVE); LEUKOCYTE ESTERASE ,URINE NEGATIVE (NEGATIVE); NITRITE,URINE POSITIVE (NEGATIVE); PH,URINE 6.5 (5-9); PROTEIN,URINE TRACE (NEGATIVE)
[2021-11-15 16:39] LABS: BACTERIA,URINE LARGE /HPF; WBC,URINE 0-2 /HPF
[2021-11-15] MEDS ORDERED: cefTRIAXone 1 GM PRE-MIX 50 ML IV STA (17:05)
[2021-11-15] MEDS ORDERED: IOHEXOL 350 MG/ML 100 ML (OMNIPAQUE 350) VIAL IV ONE (18:30)
[2021-11-15] MEDS ORDERED: HOLD METFORMIN - RECEIVED CONTRAST 20 ML VIAL IV SCH (18:30)
[2021-11-15] MEDS ORDERED: NS 100 ML (IVPB) BAG IV ONE (18:30)
--- NOTE | 2021-11-15 18:58 | Diagnostic Imaging Report ---
EXAMINATION: CT angiography of the chest. TECHNIQUE: Contrast enhanced thin section helical images were obtained through the chest with intravenous contrast timed for the optimal opacification of the arterial structures per CTA protocol. Post-processing, reconstructions and interpretation of angiographic images of the vessels was performed. 3D MIP reconstructions were performed and reviewed. All CT scans use one or more of the following dose optimizing techniques: automated exposure control, MA and/or KvP adjustment based on a patient size and exam type, or iterative reconstruction. HISTORY: Dyspnea COMPARISON: 11/04/2021 FINDINGS: Vascular: No filling defects within the pulmonary arteries. Thoracic aorta is normal in caliber. There is enlargement of the main pulmonary artery measuring up to 4.9 cm which can be seen with pulmonary arterial hypertension. Thyroid: The thyroid is normal. Mediastinum: Heart size is mildly enlarged with small pericardial effusion. No suspicious lymphadenopathy. Lungs and airways: There are patchy areas of groundglass attenuation and linear atelectasis within the lungs. No pleural effusion or pneumothorax. The airways are normal. Upper abdomen: The gallbladder is surgically absent. Musculoskeletal: Degenerative changes of the spine without suspicious osseous lesion or compression fracture. IMPRESSION: 1. No findings of pulmonary embolus. 2. Findings suggestive of pulmonary arterial hypertension. 3. Mild areas of groundglass attenuation within the lungs which can be seen with pulmonary edema or atypical infection. 4. Mild cardiomegaly and small pericardial effusion. Dictated by: Dictated on workstation # [id number]
[2021-11-15] MEDS ORDERED: ACETAMINOPHEN 325 MG TABLET PO PRN (19:30)
[2021-11-15] MEDS ORDERED: ENOXAPARIN 40 MG/0.4 ML (LOVENOX) SYR SC SCH (19:30)
[2021-11-15] MEDS ORDERED: MELATONIN 3 MG TABLET PO PRN (19:30)
[2021-11-15] MEDS ORDERED: polyethylene glycoL POWDER 17 GM (MIRALAX) PACK PO PRN (19:30)
[2021-11-15] MEDS ORDERED: ANTACID SUSP 30 ML UDC (MYLANTA) PO PRN (19:30)
[2021-11-15] MEDS ORDERED: ONDANSETRON 4 MG/2 ML (SDV) Z0FRAN IV PRN (19:30)
[2021-11-15] MEDS ORDERED: ONDANSETRON 4 MG (ZOFRAN) ORAL DISSOLVE TAB PO PRN (19:30)
[2021-11-15] MEDS: inSUlin ASPART (NovoLOG) 1 UNIT/0.01 ML (CHARGE PER UNIT) SC SCH (22:15)
[2021-11-15] MEDS: APIXABAN 5 MG (ELIQUIS) TABLET PO SCH (22:37)
[2021-11-15] MEDS: lamoTRIgine 25 MG (LaMICtal) TAB PO SCH (22:37)
[2021-11-15] MEDS: acetaZOLAMIDE 250 MG (DIAMOX) TAB PO SCH (22:37)
[2021-11-16] VITALS (11 sets, daily range): BP systolic 90–129; BP diastolic 53–73
[2021-11-16 00:17] LABS: ABG BASE EXCESS 20.7 MMOL/L (-2.5-2.5); ABG OXYGEN SATURATION 98 % (94-100); ABG PO2 87 MMHG (79-93)
[2021-11-16 00:19] LABS: ALLENS TEST YES-POS
[2021-11-16 00:20] LABS: INSPIRED O2 50% BIPAP; PATIENT TEMP 36; VENTILATOR NO
[2021-11-16 00:21] LABS: ABG PCO2 93 MMHG (35-45); ABG PH 7.33 (7.37-7.43); ABG TCO2 50.9 MMOL/L (21.0-31.0)
[2021-11-16 06:26] LABS: BASOPHILS % (AUTO) 1 % (0-10); EOSINOPHILS % (AUTO) 1 % (0-10); HEMATOCRIT 34 % (35-52); HEMOGLOBIN 9.4 g/dL (11.5-16.0); LYMPHOCYTES # (AUTO) 0.8 10^3/uL (1.0-4.0); LYMPHOCYTES % (AUTO) 15 % (12-44); MEAN CORPUSCULAR HEMOGLOBIN 26 pg (25-34); MEAN CORPUSCULAR HGB CONC 28 g/dL (32-36); MEAN CORPUSCULAR VOLUME 94 fL (80-99); MEAN PLATELET VOLUME 9.2 fL (9.0-12.2); MONOCYTES # (AUTO) 0.4 10^3/uL (0.0-1.0); MONOCYTES % (AUTO) 8 % (0-12); NEUTROPHILS # (AUTO) 3.9 10^3/uL (1.8-7.8); NEUTROPHILS % (AUTO) 75 % (42-75); PLATELET COUNT 175 10^3/uL (130-400); WHITE BLOOD COUNT 5.2 10^3/uL (4.3-11.0)
[2021-11-16 06:46] LABS: POTASSIUM 3.4 MMOL/L (3.6-5.0)
[2021-11-16 06:51] LABS: CREATININE SERUM 0.6 MG/DL (0.60-1.30)
[2021-11-16] MEDS: inSUlin ASPART (NovoLOG) 1 UNIT/0.01 ML (CHARGE PER UNIT) SC SCH ×4 (07:35→20:03)
[2021-11-16] MEDS: LEVOTHYROXINE 25 MCG (LEVOTHROID) TAB PO SCH (07:35)
[2021-11-16] MEDS: FUROSEMIDE 40 MG (LASIX) TAB PO SCH (08:49)
[2021-11-16] MEDS: PANTOPRAZOLE 20 MG TABLET (PROTONIX) PO SCH (08:49)
[2021-11-16] MEDS: APIXABAN 5 MG (ELIQUIS) TABLET PO SCH ×2 (08:49→20:03)
[2021-11-16] MEDS: lamoTRIgine 25 MG (LaMICtal) TAB PO SCH ×2 (08:50→20:03)
[2021-11-16] MEDS: ISOSORBIDE MONONITRATE 60 MG (IMDUR) TAB PO SCH (08:51)
[2021-11-16] MEDS: acetaZOLAMIDE 250 MG (DIAMOX) TAB PO SCH ×2 (09:32→20:03)
--- NOTE | 2021-11-16 14:48 | History & Physical-Hospitalist ---
History of Present Illness HPI/Chief Complaint Imelda Yañez is a 70 year old female with PMH HTN, T2DM, HLD, COPD, AFib, GERD, hypothyroidism, morbid obesity, obesity hypoventilation syndrome, who presented with shortness of breath. She denies fevers and chills. She denies cough. She was reportedly confused on arrival, but she does not remember. She denies abdominal pain, nausea, and vomiting. She has had some diarrhea. She denies chest pain and palpitations. Source: patient Exam Limitations: no limitations Date Seen 11/16/21 Time Seen by a Provider: 08:45 Attending Physician Jitendra Gonzalez MD PCP Landy Michaud MD Referring Physician Date of Admission Nov 15, 2021 at 16:29 Home Medications & Allergies Home Medications Reviewed patient Home Medication Reconciliation performed by pharmacy medication reconciliations health physics technician and/or nursing. Patients Allergies have been reviewed. Allergies Allergies Coded Allergies clarithromycin (Verified Allergy, Unknown, 11/18/18) moxifloxacin (Verified Allergy, Unknown, 11/18/18) nitrofurantoin (Verified Allergy, Unknown, 11/18/18) penicillin G (Verified Allergy, Unknown, Pt has received Omnicef & cephalexin in the past, 11/19/18) Pt has received Omnicef & cephalexin in the past (from External med history) sulfacetamide (Verified Allergy, Unknown, 11/18/18) trazodone (Verified Allergy, Unknown, 11/18/18) Past Endlryg-Bvboqy-Qtooaw Hx Patient Social History Tobacco Use?: No Smoking Status: Unknown if Ever Smoked Smokeless Tobacco Frequency: Unknown if Ever Used Use of E-Cig and/or Vaping dev: Unable to obtain Substance use?: Unable to obtain Alcohol Use?: Unable to obtain Pt feels they are or have been: Unable to obtain Immunizations Up To Date First/Initial COVID19 Vaccinat: Faizan and Faizan 2020 Second COVID19 Vaccination Luis: Faizan and Faizan 2020 Tetanus Booster (TDap): Unknown Current Status Advance Directives: Unable to obtain Communicates: Verbally Primary Language: Honduran Preferred Spoken Language: Honduran Is interpretation needed?: No Past Medical History Surgeries: Abdominal, Section, Gallbladder, Hysterectomy, Tonsillectomy Sleep Apnea, COPD Currently Using CPAP: No Currently Using BIPAP: Yes (uses at night) Atrial Fibrillation, Chronic Edema/Swelling, High Cholesterol, Hypertension Dementia 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 Review of Systems Constitutional: no symptoms reported EENTM: no symptoms reported Respiratory: short of breath Cardiovascular: no symptoms reported Gastrointestinal: diarrhea Genitourinary: no symptoms reported Musculoskeletal: no symptoms reported Skin: no symptoms reported Psychiatric/Neurological: No Symptoms Reported Physical Exam Physical Exam Vital Signs Vital Signs - First Documented 11/15/21 11/16/21 14:30 04:00 Temp 36.6 Pulse 86 Resp 22 B/P (MAP) 135/73 (93) Pulse Ox 100 O2 Delivery Nasal Cannula O2 Flow Rate 5.00 Capillary Refill : Less Than 3 Seconds Height, Weight, BMI Height: 5'4.00" Weight: 256lbs. 1.0oz. 116.057252gy; 46.03 BMI Method: General Appearance: No Apparent Distress, Chronically ill, Obese HEENT: PERRL/EOMI Neck: Normal Inspection, Supple Respiratory: No Respiratory Distress, Decreased Breath Sounds, Other (wearing BiPAP) Cardiovascular: Regular Rate, Rhythm, No Murmur Gastrointestinal: Normal Bowel Sounds, Non Tender, Soft Extremity: Normal Inspection, Non Tender, Pedal Edema Neurologic/Psychiatric: Alert, No Motor/Sensory Deficits, Normal Mood/Affect Skin: Normal Color, Warm/Dry Results Results/Procedures Labs Laboratory Tests 11/15/21 14:46 11/16/21 06:05 Patient resulted labs reviewed. Imaging: Reviewed Imaging Report Assessment/Plan Admission Diagnosis Acute on chronic respiratory failure with hypoxia and hypercapnia Admission Status: Inpatient Order (span 2 midnights) Reason for Inpatient Admission: Respiratory failure Assessment and Plan Acute on chronic respiratory failure with hypoxia and hypercapnia Obesity hypoventilation syndrome Morbid obesity Pulmonary hypertension ABG with significantly elevated CO2, decresaed pH, slightly worsened from previous CT with no evidece of PE, suggestive of pulmonary HTN Started on BiPAP UTI Rocephin T2DM Continue decreased dose Levemir Sliding scale insulin HTN HLD GERD Hypothyroidism AFib COPD Continue home meds Diagnosis/Problems Diagnosis/Problems (1) Acute on chronic respiratory failure with hypoxia and hypercapnia Status: Acute (2) Obesity hypoventilation syndrome Status: Acute (3) Morbid obesity Status: Chronic (4) UTI (urinary tract infection) Status: Acute JITENDRA GONZALEZ MD Nov 16, 2021 14:48
[2021-11-16] MEDS: cefTRIAXone 1 GM PRE-MIX 50 ML IV SCH (16:02)
[2021-11-16] MEDS ORDERED: RT-ALBUTEROL SULF 2.5 MG/3 ML PRE-MIX VIAL INH SCH (21:00)
[2021-11-16] MEDS ORDERED: RT-ALBUTEROL SULF 2.5 MG/3 ML PRE-MIX VIAL INH PRN (21:05)
[2021-11-16] MEDS ORDERED: RT-ALBUTEROL SULF 2.5 MG/3 ML PRE-MIX VIAL ONE (21:14)
[2021-11-17 04:00] VITALS: BP 111/62
[2021-11-17 05:34] LABS: BASOPHILS # (AUTO) 0.1 10^3/uL (0.0-0.1); BASOPHILS % (AUTO) 1 % (0-10); EOSINOPHILS # (AUTO) 0.1 10^3/uL (0.0-0.3); EOSINOPHILS % (AUTO) 1 % (0-10); HEMATOCRIT 34 % (35-52); HEMOGLOBIN 9.4 g/dL (11.5-16.0); LYMPHOCYTES # (AUTO) 0.8 10^3/uL (1.0-4.0); LYMPHOCYTES % (AUTO) 14 % (12-44); MEAN CORPUSCULAR HEMOGLOBIN 26 pg (25-34); MEAN CORPUSCULAR HGB CONC 27 g/dL (32-36); MEAN CORPUSCULAR VOLUME 96 fL (80-99); MEAN PLATELET VOLUME 9.3 fL (9.0-12.2); MONOCYTES # (AUTO) 0.5 10^3/uL (0.0-1.0); MONOCYTES % (AUTO) 8 % (0-12); NEUTROPHILS # (AUTO) 4.5 10^3/uL (1.8-7.8); NEUTROPHILS % (AUTO) 75 % (42-75); PLATELET COUNT 171 10^3/uL (130-400)
[2021-11-17] MEDS: LEVOTHYROXINE 25 MCG (LEVOTHROID) TAB PO SCH (05:44)
[2021-11-17] MEDS: inSUlin ASPART (NovoLOG) 1 UNIT/0.01 ML (CHARGE PER UNIT) SC SCH ×2 (05:44→11:02)
[2021-11-17 05:52] LABS: POTASSIUM 2.9 MMOL/L (3.6-5.0)
[2021-11-17 05:53] LABS: CALCIUM 8.8 MG/DL (8.5-10.1)
[2021-11-17 05:58] LABS: CREATININE SERUM 0.61 MG/DL (0.60-1.30)
[2021-11-17] MEDS ORDERED: POTASSIUM CL 10MEQ/50ML IVPB 50 ML IV SCH (07:30)
[2021-11-17] MEDS ORDERED: MAGNESIUM 1 GM/100 ML IVPB 100 ML IV SCH (07:30)
[2021-11-17] MEDS ORDERED: KCL 20 MEQ TAB (K-DUR) PO SCH (07:30)
[2021-11-17 07:40] VITALS: BP 106/55
[2021-11-17] MEDS: ISOSORBIDE MONONITRATE 60 MG (IMDUR) TAB PO SCH (08:09)
[2021-11-17] MEDS: FUROSEMIDE 40 MG (LASIX) TAB PO SCH (08:09)
[2021-11-17] MEDS: APIXABAN 5 MG (ELIQUIS) TABLET PO SCH (08:10)
[2021-11-17] MEDS: lamoTRIgine 25 MG (LaMICtal) TAB PO SCH (08:10)
[2021-11-17] MEDS: PANTOPRAZOLE 20 MG TABLET (PROTONIX) PO SCH (08:10)
[2021-11-17] MEDS: cefTRIAXone 1 GM PRE-MIX 50 ML IV SCH (08:11)
[2021-11-17] MEDS: KCL 20 MEQ TAB (K-DUR) PO SCH ×2 (10:38→12:47)
[2021-11-17] MEDS: acetaZOLAMIDE 250 MG (DIAMOX) TAB PO SCH (10:38)
--- NOTE | 2021-11-17 11:20 | Discharge Summary ---
Discharge Summary Reconcile Patient Problems Problems Reviewed?: Yes Instructions for Patient Via [facility], Assessment/Instructions Take medications as prescribed. Follow up with your PCP. Return with worsening shortness of breath or if you feel like you are getting worse. Physician to follow Patient: Jaswant Discharge Diet for Home: No Restrictions Hospital Course Date of Admission: Nov 15, 2021 at 16:29 Admission Diagnosis : Acute on chronic respiratory failure with hypoxia and hypercapnia Family Physician/Provider: Landy Michaud MD Date of Discharge: 11/17/21 Discharge Diagnosis: Acute on chronic respiratory failure with hypoxia and hypercapnia, obesity hypoventilation syndrome Hospital Course: Imelda Yañez is a 70 year old female with PMH HTN, T2DM, HLD, COPD, AFib, GERD, hypothyroidism, morbid obesity, obesity hypoventilation syndrome, who presented with shortness of breath and was admitted with acute on chronic respiratory failure with hypoxia and hypercapnia due to obesity hypoventilation syndrome. Her pH and CO2 improved once placed on BiPAP. She had been intermittently non-compliant with her BiPAP. She was instructed on the importance of compliance. She was discharged home with home health. She should follow up with her PCP in about a week. Labs and Pending Lab Test: Laboratory Tests 11/16/21 11:52: Glucometer 139H 11/16/21 15:47: Glucometer 172H 11/16/21 19:37: Glucometer 153H 11/17/21 05:15: White Blood Count 6.0, Red Blood Count 3.56L, Hemoglobin 9.4L, Hematocrit 34L, Mean Corpuscular Volume 96, Mean Corpuscular Hemoglobin 26, Mean Corpuscular Hemoglobin Concent 27L, Red Cell Distribution Width 17.4H, Platelet Count 171, Mean Platelet Volume 9.3, Immature Granulocyte % (Auto) 1, Neutrophils (%) (Auto) 75, Lymphocytes (%) (Auto) 14, Monocytes (%) (Auto) 8, Eosinophils (%) (Auto) 1, Basophils (%) (Auto) 1, Neutrophils # (Auto) 4.5, Lymphocytes # (Auto) 0.8L, Monocytes # (Auto) 0.5, Eosinophils # (Auto) 0.1, Basophils # (Auto) 0.1, Immature Granulocyte # (Auto) 0.0, Sodium Level 139, Potassium Level 2.9L, Chloride Level 84L, Carbon Dioxide Level 44H, Anion Gap 11, Blood Urea Nitrogen 6L, Creatinine 0.61, Estimat Glomerular Filtration Rate 97, BUN/Creatinine Ratio 10, Glucose Level 115H, Calcium Level 8.8 11/17/21 05:26: Glucometer 82 11/17/21 10:50: Glucometer 134H Microbiology 11/15/21 Urine Culture - Preliminary, Resulted Escherichia coli Culture In Progress Home Meds Active Comfort Touch Pen Needle (Pen Needle, Diabetic) 1 Each Dis.needle Each MC ACHS Levemir Flextouch (Insulin Detemir) 100 Unit/1 Ml Insuln.pen 8 Unit SQ BID Novolog Flexpen (Insulin Aspart) 300 Units/3 Ml Solution 4 Units SQ AC Nystatin 15 Gm Cream..g. 0 Gm TP TID Deep Sea (Sodium Chloride) 44 Ml Melvin 0 Ml NA QID PRN Acetazolamide 250 Mg Tablet 250 Mg PO BID HYDROcodone/APAP 5 MG/325 MG TAB (Acetaminophen/Hydrocodone Bitart) 1 Tab Tab 1 Ea PO Q4H PRN Reported Albuterol Sulfate 2.5 Mg/3 Ml Vial.neb 3 Ml NEB Q6H PRN Aripiprazole 20 Mg Tablet 20 Mg PO DAILY Jennifer Allergy (Fexofenadine HCl) 180 Mg Tablet 180 Mg PO DAILY Olopatadine HCl 2.5 Ml Drops 1 Drop OU HS Lidocaine 5% Patch (Lidocaine) 1 Each Adh..patch 1 Pat TD DAILY APPLY TO LEFT SHOULDER- REMOVE AFTER 12 HOURS Isosorbide Mononitrate ER (Isosorbide Mononitrate) 60 Mg Tab 60 Mg PO DAILY Pantoprazole Sodium 20 Mg Tablet.dr 20 Mg PO DAILY Furosemide 40 Mg Tablet 40 Mg PO DAILY K-Tab ER (Potassium Chloride) 10 Meq Tablet.er 20 Meq PO BID TAKES 2 (10 MEQ) TABLETS Eliquis (Apixaban) 5 Mg Tablet 5 Mg PO BID Ventolin Hfa (Albuterol Sulfate) 18 Gm Hfa.aer.ad 2 Puff INH QID PRN Levothyroxine Sodium 25 Mcg Tablet 25 Mcg PO DAILY Zafirlukast 20 Mg Tablet 20 Mg PO BID Lamotrigine 25 Mg Tablet 25 Mg PO BID Patient Allergies: Coded Allergies: clarithromycin (Verified Allergy, Unknown, 11/18/18) moxifloxacin (Verified Allergy, Unknown, 11/18/18) nitrofurantoin (Verified Allergy, Unknown, 11/18/18) penicillin G (Verified Allergy, Unknown, Pt has received Omnicef & cephalexin in the past, 11/19/18) Pt has received Omnicef & cephalexin in the past (from External med history) sulfacetamide (Verified Allergy, Unknown, 11/18/18) trazodone (Verified Allergy, Unknown, 11/18/18) Height (Feet): 5 Height (Inches): 4.00 Weight (Pounds): 256 Weight (Ounces): 1.0 Home Health Need/Face to Face Date of Face to Face: Nov 17, 2021 Clinical Findings: Generalized weakness and fatigue, Instability, Muscle weakness, Shortness of breath, Unsteady gait I have seen Pt [id number]: Yes Discharged To: Home Diagnosis/Conditions: Chronic respiratory failure Obesity hypoventilation syndrome Morbid obesity Type 2 diabetes mellitus Problems/Diagnosis/Condition: (1) Acute on chronic respiratory failure with hypoxia and hypercapnia (2) Obesity hypoventilation syndrome (3) Morbid obesity (4) Uncontrolled diabetes mellitus Patient is Homebound due to: Michelle fall risk due to instabilty, Muscle weakness, Shortness of breath/distress Homebound Status Due to the above stated illness, injury or surgical procedure (medical condition or diagnosis) and associated clinical findings, the patient is home bound because of his/her inability to leave home except with aid of a supportive device and/or person AND leaving the home requires a considerable and taxing effort or is medically contraindicated. Pt req the following assistanc: Aid of another person, Wheelchair Home Health Nursing Orders Home Health Services Order: Nursing Services, [employer] Specialist-Evaluate & Treat, Physical Therapy-Evaluate & Treat Home Health Infusion Therapy Line Start Date: Nov 15, 2021 Therapy Orders Therapy Orders: OT (must have SN or PT order), Physical Therapy Therapy Specific Orders: Eval assistive deivces, Teach enviro modifications/s afety, Gait training, Increase strength/endurance Certify Stmt I certify that this patient is under my care and that I, a nurse practitioner or a physician; a medical laboratory assistant working with me, had a face to face encounter that - meets the physician face to face encounter requirements with this patient as dated. Discharge Physical Exam General: Alert, Cooperative HEENT: Atraumatic, EOMI Lungs: Clear to Auscultation, Normal Air Movement Heart: Regular Rate, No Murmurs Abdomen: Normal Bowel Sounds, Soft, No Tenderness Extremities: No Edema, No Tenderness/Swelling Skin: No Rashes, No Significant Lesion Neuro: Normal Speech Psych/Mental Status: Mental Status NL, Mood NL JITENDRA GONZALEZ MD Nov 17, 2021 11:10
[2021-11-17 12:00] VITALS: BP 110/73
--- NOTE | 2021-11-17 15:20 | Physical Therapy Evaluation ---
PT Evaluation-General Medical Diagnosis Admission Date Nov 15, 2021 at 16:29 Medical Diagnosis: SOA Onset Date: Nov 15, 2021 Therapy Diagnosis Therapy Diagnosis: Weakness, debility Height/Weight Height (Feet): 5 Height (Inches): 4.00 Weight (Pounds): 256 Weight (Ounces): 1.0 Precautions Precautions/Isolations: Fall Prevention, Standard Precautions Referral Physician: Bozena Reason for Referral: Evaluation/Treatment Medical History Pertinent Medical History: Atrial Fib, COPD, DM, Heart Failure, HTN Current History PT BROUGHT [facility] BY [facility] [place]. STATES PT WAS LETHARGIC AND INCREASED BLOOD SUGAR Reviewed History: Yes Social History Home: Single Level Prior Prior Level of Function SCALE: Activities may be completed with or without assistive devices. 5-Mywklrhjpf-nctfovn completes the activity by him/herself with no assistance from a helper. 5-Set-up or Clean-up Assistance-helper sets up or cleans up; patient completes activity. [place] assists only prior to or following the activity. 4-Supervision or Touching Assistance-helper provides verbal cues and/or touching/steadying and/or contact guard assistance as patient completes activity. Assistance may be provided throughout the activity or intermittently. 3-Partial/Moderate Assistance-helper does LESS THAN HALF the effort. [place] lifts, holds or supports trunk or limbs, but provides less than half the effort. 2-Substantial/Maximal Assistance-helper does MORE THAN HALF the effort. [place] lifts or holds trunk or limbs and provides more than half the effort. 6-Enobphykg-bwgaan does ALL the effort. Patient does none of the effort to complete the activity. Or, the assistance of 2 or more helpers is required for the patient to complete the activity. If activity was not attempted, code reason: 7-Patient Refused. 9-Not Applicable-not attempted and the patient did not perform the activity before the current illness, exacerbation or injury. 10-Not Attempted due to Environmental Limitations-(lack of equipment, weather restraints, etc.). 88-Not Attempted due to Medical Conditions or Safety Concerns. Bed Mobility: 6 Transfers (B,C,W/C): 6 Prior Devices Use: Motorized wheelchair Patient reports that she uses a walker to stand and pivot into and out of her motorized wheelchair and does not ambulate at all within her house. PT Evaluation-Current Subjective Patient presented sitting in transport wheelchair getting ready for discharge. Objective Patient Orientation: Person, Place, Situation ROM/Strength ROM Lower Extremities WFL Strength Lower Extremities 3+/5 bilateral hip flexors 4/5 strength knee flex and ext bilaterally Sensory Vision: Functional Hearing: Functional Gait Does the Patient Walk?: No and Walking Goal NOT indicated Mode of Locomotion: Wheelchair Anticipated Mode of Locomotion: Wheelchair Treatment Strength testing Discharge education for safety at home Education about car transfers Assessment/Needs Patient performed strength testing and was educated about safe transfers at home and car transfers. Patient reports that she does not walk at all and performs stand pivot transfers into and out of her motorized wheelchair. Patient declined performing any transfers today because she was ready to go home and did not want to get out of the wheelchair. Patient will have discharge from therapy services due to patient discharging to home. Rehab Potential: Fair PT Plan Treatment/Plan Treatment Plan: Discontinue PT Treatment Duration: Nov 17, 2021 Frequency: Estimated Hrs Per Day: .25 hour per day Patient and/or Family Agrees t: Yes Safety Risks/Education Patient Education: Transfer Techniques, Safety Issues Teaching Recipient: Patient Teaching Methods: Demonstration, Discussion Response to Teaching: Verbalize Understanding Discharge Recommendations Plan DC Therapy Discharge Recommendati: Home & Family, Post Acute PT Time/GCodes Time In: 1433 Time Out: 1441 Total Billed Treatment Time: 8 Total Billed Treatment 1 Visit EVMod 8 min MICHELLE LEWIS PT Nov 17, 2021 15:20
== END 2021-11-17 15:10 | disposition home health service (06) | DRG 189 ==
LOC: ER 14:30 → EDUNIT# 14:43 → CSD 16:29
PROVIDERS: ADMIT Internal Medicine; ATTEND Internal Medicine
PROC: 5A09357 Assistance with Respiratory Ventilation, Less than 24 Consecutive Hours, Continuous Positive Airway Pressure (ICD-10-PCS; principal; 2021-11-15)
PROC: 8E0ZXY6 Isolation (ICD-10-PCS; 2021-11-15)
PROC: 5A0935A Assistance with Respiratory Ventilation, Less than 24 Consecutive Hours, High Flow/Velocity Cannula (ICD-10-PCS; 2021-11-16)
DX: J96.01 Acute respiratory failure with hypoxia (principal); E66.2 Morbid (severe) obesity with alveolar hypoventilation; Z68.41 Body mass index [BMI] 40.0-44.9, adult; N39.0 Urinary tract infection, site not specified; J96.02 Acute respiratory failure with hypercapnia; E11.65 Type 2 diabetes mellitus with hyperglycemia; E78.5 Hyperlipidemia, unspecified; I11.9 Hypertensive heart disease without heart failure; J44.9 Chronic obstructive pulmonary disease, unspecified; I48.91 Unspecified atrial fibrillation; K21.9 Gastro-esophageal reflux disease without esophagitis; E03.9 Hypothyroidism, unspecified; F41.9 Anxiety disorder, unspecified; F31.9 Bipolar disorder, unspecified; E78.00 Pure hypercholesterolemia, unspecified; F03.90 Unspecified dementia, unspecified severity, without behavioral disturbance, psychotic disturbance, mood disturbance, and anxiety; I27.20 Pulmonary hypertension, unspecified; B96.20 Unspecified Escherichia coli [E. coli] as the cause of diseases classified elsewhere; Z79.4 Long term (current) use of insulin; Z79.01 Long term (current) use of anticoagulants; Z79.890 Hormone replacement therapy; Z79.899 Other long term (current) drug therapy; Z91.19 Patient's noncompliance with other medical treatment and regimen; Z20.822 Contact with and (suspected) exposure to COVID-19
CPT/HCPCS: 36415; 51702; 71045; 71275; 80048; 80053; 81000; 82150; 82550; 82553; 82805; 82947; 83605; 83690; 83735; 83874; 83880; 84145; 84443; 84484; 85007; 85025; 85027; 85610; 85652; 85730; 86141; 87077; 87088; 87636; 93005; 93041; 93306; 94640; 94660

== ENCOUNTER 2021-11-28 22:08 | Inpatient (IN) | payer MEDICARE, MEDICAID ==
[~2021-11-28] VITALS: Ht 162.6 cm; Wt 115.6 kg
[2021-11-28] MEDS ORDERED: methylPREDNISolone 125 MG (Solu-MEDROL) VIAL IV STA (22:09)
[2021-11-28] MEDS ORDERED: RT-ALBUTEROL/IPRATROPIUM 3 ML (DUONEB) VIAL INH ONE ×2 (22:15)
[2021-11-28 22:25] LABS: ABG BASE EXCESS 20.9 MMOL/L (-2.5-2.5); ABG OXYGEN SATURATION 99 % (94-100); ABG PO2 135 MMHG (79-93)
[2021-11-28 22:26] LABS: BASOPHILS % (AUTO) 1 % (0-10); EOSINOPHILS % (AUTO) 0 % (0-10); HEMATOCRIT 35 % (35-52); HEMOGLOBIN 9.3 g/dL (11.5-16.0); LYMPHOCYTES # (AUTO) 0.7 10^3/uL (1.0-4.0); LYMPHOCYTES % (AUTO) 12 % (12-44); MEAN CORPUSCULAR HEMOGLOBIN 26 pg (25-34); MEAN CORPUSCULAR HGB CONC 27 g/dL (32-36); MEAN CORPUSCULAR VOLUME 96 fL (80-99); MEAN PLATELET VOLUME 9.2 fL (9.0-12.2); MONOCYTES # (AUTO) 0.5 10^3/uL (0.0-1.0); MONOCYTES % (AUTO) 8 % (0-12); NEUTROPHILS # (AUTO) 4.5 10^3/uL (1.8-7.8); NEUTROPHILS % (AUTO) 77 % (42-75); PLATELET COUNT 249 10^3/uL (130-400); WHITE BLOOD COUNT 5.8 10^3/uL (4.3-11.0)
[2021-11-28 22:41] LABS: BILIRUBIN,URINE NEGATIVE (NEGATIVE); CLARITY,URINE CLEAR; COLOR,URINE YELLOW; GLUCOSE, URINE (UA) 1+ (NEGATIVE); KETONES,URINE NEGATIVE (NEGATIVE); LEUKOCYTE ESTERASE ,URINE NEGATIVE (NEGATIVE); NITRITE,URINE NEGATIVE (NEGATIVE); PH,URINE 6.5 (5-9); PROTEIN,URINE 2+ (NEGATIVE)
[2021-11-28 22:43] LABS: ALLENS TEST YES-POS; INSPIRED O2 10L; PATIENT TEMP 36.5; VENTILATOR NO
[2021-11-28 22:44] LABS: ABG PH 7.21 (7.37-7.43)
[2021-11-28 22:45] LABS: ABG PCO2 127 MMHG (35-45); ABG TCO2 53.5 MMOL/L (21.0-31.0)
[2021-11-28 22:48] VITALS: BP 120/64
--- NOTE | 2021-11-28 22:48 | ED General ---
General Chief Complaint: Respiratory Problems Stated Complaint: LOW O2, LETHARGY Nursing Triage Note: PT TO RM 5 VIA [facility]. EMS REPORTS THEY WERE CALLED FOR A POSS CODE, DAUGHTER FOUND PT AT HOME UNABLE TO AROUSE. UPON ARRIVAL FIRE DEPT REPORTS SPO2 OF 49% & LIPS WERE CYANOTIC, PT PLACED ON PERSONAL CPAP, SPO2 UP TO 95+%. PT ARRIVED TO ED W NONREBREATHER AT 10L, PT TACHYPNEIC DURING TRIAGE. PT A&OX4, C/O SOA, DENIES PAIN. Source of Information: Patient (PT IS LETHARGIC AND UNABLE TO GIVE SIGNIFICANT INFORMATION AT THIS TIME. PT ALSO HAS DEMENTIA AND IS A LIMITED HISTORIAN AT BASELINE. ), EMS, Old Records (ALL PMH IS FROM OLD CHART) History of Present Illness Date Seen by Provider: Nov 28, 2021 Time Seen by Provider: 22:09 Initial Comments PT ARRIVES VIA EMS FROM HOME--PT LIVES ALONE EMS REPORT THEY WERE CALLED TO THE RESIDENCE FOR A POSSIBLE CODE BLUE. EMS REPORT THAT DAUGHTER WENT TO CHECK ON PATIENT, AND FOUND HER UNRESPONSIVE AND CYANOTIC--LAST KNOW WELL TIME IS UNKNOWN. EMS REPORT THAT INITIAL O2 SAT WAS 49% BY FIRE DEPT. PT WAS NOT WEARING O2 OR CPAP/BIPAP AND DAUGHTER PUT CPAP ON. EMS REPORT THAT WHEN THEY ARRIVED, PT WAS AWAKE AND O2 SAT WAS 95% AND NO LONGER CYANOTIC. EMS PLACED PT ON NON REBREATHER MASK AND 15L, THEN DECREASED IT TO 10 LITERS, AND O2 SAT REMAINED 99% ACCUCHECK WAS 317 FOR EMS PT WITH COPD AND OBESITY HYPOVENTILATION SYNDROME, AND IS SUPPOSED TO BE ON O2 AT 5L/NC CONTINUOUSLY, AND WEAR CPAP/BIPAP AT NIGHT, BUT IS NON-COMPLIANT WITH CPAP/BIPAP ON ARRIVAL, PT IS AWAKE BUT LETHARGIC, PT ABLE TO ANSWER A FEW QUESTIONS, AND IS ORIENTED TO PERSON, PLACE, TIME AND GROSSLY ORIENTED TO SITUATION SHE STATES SHE IS HERE BECAUSE SHE "DOESN'T FEEL GOOD" "OXYGEN" AND ADMITS TO SHORTNESS OF BREATH, BUT UNABLE TO ELABORATE OR GIVE ANY MORE INFORMATION ON ARRIVAL PT WAS ADMITTED 10/11-10/15/21 FOR ACUTE ON CHRONIC RESPIRATORY FAILURE PT ADMITTED 11/04-11/09/21 FOR SEVERE HYPOGLYCEMIA PT ADMITTED 11/15-11/17/21 FOR ELEVATED BLOOD SUGAR AND ACUTE ON CHRONIC RESPIRATORY FAILURE SEE DETAILS IN OLD CHARTS. PT WITH LONG HISTORY OF NON-COMPLIANCE IN ALL ASPECTS OF CARE EMS STAFF ARE VERY FAMILIAR WITH PATIENT, THEY ARE FREQUENTLY CALLED TO RESIDENCE FOR VARIOUS COMPLAINTS--LIFT ASSISTS, HYPOGLYCEMIA, TRANSFER TO ER--NORMALLY GOES TO [facility] PCP: DR. COOK AT [facility] IN [place] Allergies and Home Medications Allergies Coded Allergies: clarithromycin (Verified Allergy, Unknown, 11/18/18) moxifloxacin (Verified Allergy, Unknown, 11/18/18) nitrofurantoin (Verified Allergy, Unknown, 11/18/18) penicillin G (Verified Allergy, Unknown, Pt has received Omnicef & cephalexin in the past, 11/19/18) Pt has received Omnicef & cephalexin in the past (from External med history) sulfacetamide (Verified Allergy, Unknown, 11/18/18) trazodone (Verified Allergy, Unknown, 11/18/18) Patient Home Medication List Home Medication List Reviewed: Yes Acetazolamide (Acetazolamide) 250 Mg Tablet, 250 MG PO BID Prescribed by: LISA ACHARYA on 11/09/21 1052 Albuterol Sulfate (Ventolin Hfa) 18 Gm Hfa.aer.ad, 2 PUFF INH QID PRN for SHORTNESS OF BREATH, (Reported) Entered as Reported by: RICKI MCCORMACK on 11/19/18 1120 Albuterol Sulfate (Albuterol Sulfate) 2.5 Mg/3 Ml Vial.neb, 3 ML NEB Q6H PRN for SHORTNESS OF BREATH, (Reported) Entered as Reported by: FRANCIA MARIE on 11/04/21 1151 Apixaban (Eliquis) 5 Mg Tablet, 5 MG PO BID, (Reported) Entered as Reported by: ADEN CALDWELL on 11/30/20 1623 Aripiprazole (Aripiprazole) 20 Mg Tablet, 20 MG PO DAILY, (Reported) Entered as Reported by: FRANCIA MARIE on 11/04/21 1037 Fexofenadine HCl (Jennifer Allergy) 180 Mg Tablet, 180 MG PO DAILY, (Reported) Entered as Reported by: FRANCIA MARIE on 10/12/21 1402 Furosemide (Furosemide) 40 Mg Tablet, 40 MG PO DAILY, (Reported) Entered as Reported by: FRANCIA MARIE on 10/12/21 1402 Hydrocodone Bit/Acetaminophen (HYDROcodone/APAP 5 MG/325 MG TAB) 1 Tab Tab, 1 EA PO Q4H PRN for PAIN-MODERATE (5-7) Prescribed by: LISA ACHARYA on 11/09/21 105 Insulin Aspart (Novolog Flexpen) 300 Units/3 Ml Solution, 4 UNITS SQ AC Prescribed by: LISA ACHARYA on 11/09/21 105 Insulin Detemir (Levemir Flextouch) 100 Unit/1 Ml Insuln.pen, 8 UNIT SQ BID Prescribed by: LISA ACHARYA on 11/09/21 105 Isosorbide Mononitrate (Isosorbide Mononitrate ER) 60 Mg Tab, 60 MG PO DAILY, (Reported) Entered as Reported by: FRANCIA MARIE on 10/12/21 140 Lamotrigine (Lamotrigine) 25 Mg Tablet, 25 MG PO BID, (Reported) Entered as Reported by: RICKI MCCORMACK on 11/19/18 104 Levothyroxine Sodium (Levothyroxine Sodium) 25 Mcg Tablet, 25 MCG PO DAILY, (Reported) Entered as Reported by: RICKI MCCORMACK on 11/19/18 104 Lidocaine (Lidocaine 5% Patch) 1 Each Adh..patch, 1 PAT TD DAILY, (Reported) Entered as Reported by: FRANCIA MARIE on 10/12/21 140 Nystatin (Nystatin) 15 Gm Cream..g., 0 GM TP TID Prescribed by: LISA ACHARYA on 11/09/21 105 Olopatadine HCl (Olopatadine HCl) 2.5 Ml Drops, 1 DROP OU HS, (Reported) Entered as Reported by: FRANCIA MARIE on 10/12/21 140 Pantoprazole Sodium (Pantoprazole Sodium) 20 Mg Tablet.dr, 20 MG PO DAILY, (Reported) Entered as Reported by: FRANCIA MARIE on 10/12/21 140 Pen Needle, Diabetic (Comfort Touch Pen Needle) 1 Each Dis.needle, EACH [facility], (DME) Prescribed by: LISA ACHARYA on 11/09/21 105 Potassium Chloride (K-Tab ER) 10 Meq Tablet.er, 20 MEQ PO BID, (Reported) Entered as Reported by: ADEN CALDWELL on 11/30/20 162 Sodium Chloride (Deep Sea) 44 Ml [place], 0 ML NA QID PRN for DRY NOSE Prescribed by: LISA ACHARYA on 11/09/21 1052 Zafirlukast (Zafirlukast) 20 Mg Tablet, 20 MG PO BID, (Reported) Entered as Reported by: RICKI MCCORMACK on 11/19/18 1049 Review of Systems Review of Systems Constitutional: other (LETHARGY) Respiratory: see HPI Past Dqtrwam-[id number]-Vmyqcz Hx Patient Social History Tobacco Use?: Yes Tobacco type used: Cigarettes Smoking Status: Former Smoker Use of E-Cig and/or Vaping dev: No Substance use?: No Alcohol Use?: No Immunizations Up To Date First/Initial COVID19 Vaccinat: 2020 Second COVID19 Vaccination Luis: 2020 Third COVID19 Vaccination Date: 2020 Past Medical History Surgery/Hospitalization HX: DM Surgeries: Yes (HERNIA REPAIR) Abdominal, Section, Gallbladder, Hysterectomy, Tonsillectomy Respiratory: Yes (RESPIRATORY FAILURE;OBESITY HYPOVENTILATION;O2 AT 5L/NC CONTINUOUSLY) Sleep Apnea, COPD Currently Using CPAP: No Currently Using BIPAP: Yes (uses at night) Cardiac: Yes (CHF) Atrial Fibrillation, Chronic Edema/Swelling, High Cholesterol, Hypertension Neurological: Yes Dementia [employer] History: Hysterectomy, 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 SOCIAL HISTORY: -SMOKED 2 PPD, QUIT > 10 YEARS AGO -ETOH-DENIES USE -DRUGS-DENIES USE Physical Exam Vital Signs Vital Signs - First Documented 11/28/21 22:08 Temp 36.5 Pulse 92 Resp 26 B/P (MAP) 130/84 (99) Pulse Ox 99 O2 Delivery Non Rebreather O2 Flow Rate 10.00 Capillary Refill : Less Than 3 Seconds Height, Weight, BMI Height: 5'4.00" Weight: 256lbs. 1.0oz. 116.590477lt; 43.00 BMI Method: General Appearance: Other (PT IS LETHARGIC/DROWSY, SPEECH IS SLOW BUT NOT SLURRED. ) HEENT: Other (ORAL MUCOSA DRY) Respiratory: Accessory Muscle Use, Decreased Breath Sounds, Respiratory Distress (MILD), Wheezing (EXPIRATORY WHEEZING BILATERALLY, WITH DECREASED AERATION/DECREASED RESPIRATORY EFFORT ) Cardiovascular: Irregularly Irregular Gastrointestinal: Soft, Other (MORBIDLY OBESE--MULTIPLE SMALL BRUISES TO ABDOMEN--SUSPECT DUE TO RECENT INJECTIONS FROM RECENT ADMITS. ) Extremity: Pedal Edema (2+ EDEMA BILATERALLY WITH CHRONIC VENOUS STASIS CHANGES. TOES PINK BUT COOL AND DECREASED CAPILLARY REFILL. SCABBED SORES TO TOES, DRIED MUD ON RIGHT TOES. ) Neurologic/Psychiatric: Other (MENTATION NOTED ABOVE. NO OBVIOUS FOCAL DEFICITS. ) Skin: Warm/Dry, Pallor Focused Exam Lactate Level 11/28/21 22:14: Lactic Acid Level 0.77 Lactic Acid Level Laboratory Tests Test 11/28/21 22:14 Lactic Acid Level 0.77 MMOL/L (0.50-2.00) Procedures/Interventions Date of ETT Placement: Nov 18, 2018 Time of ETT Placement: 1843 Progress/Results/Core Measures Suspected Sepsis SIRS Temperature: Pulse: 92 Respiratory Rate: 26 Laboratory Tests 11/28/21 22:14: White Blood Count 5.8 Blood Pressure 130 /84 Mean: 99 11/28/21 22:14: Lactic Acid Level 0.77 Laboratory Tests 11/28/21 22:14: Creatinine 0.75, INR Comment 1.3, Platelet Count 249, Total Bilirubin 0.9 Results/Orders Lab Results Laboratory Tests Test 11/28/21 22:14 11/28/21 22:20 11/28/21 22:30 11/28/21 23:40 Range/Units White Blood Count 5.8 4.3-11.0 10^3/uL Red Blood Count 3.61 L 3.80-5.11 10^6/uL Hemoglobin 9.3 L 11.5-16.0 g/dL Hematocrit 35 35-52 % Mean Corpuscular Volume 96 80-99 fL Mean Corpuscular Hemoglobin 26 25-34 pg Mean Corpuscular Hemoglobin Concent 27 L 32-36 g/dL Red Cell Distribution Width 16.8 H 10.0-14.5 % Platelet Count 249 130-400 10^3/uL Mean Platelet Volume 9.2 9.0-12.2 fL Immature Granulocyte % (Auto) 2 % Neutrophils (%) (Auto) 77 H 42-75 % Lymphocytes (%) (Auto) 12 12-44 % Monocytes (%) (Auto) 8 0-12 % Eosinophils (%) (Auto) 0 0-10 % Basophils (%) (Auto) 1 0-10 % Neutrophils # (Auto) 4.5 1.8-7.8 10^3/uL Lymphocytes # (Auto) 0.7 L 1.0-4.0 10^3/uL Monocytes # (Auto) 0.5 0.0-1.0 10^3/uL Eosinophils # (Auto) 0.0 0.0-0.3 10^3/uL Basophils # (Auto) 0.0 0.0-0.1 10^3/uL Immature Granulocyte # (Auto) 0.1 0.0-0.1 10^3/uL Erythrocyte Sedimentation Rate 83 H 0-30 MM/HR Prothrombin Time 16.2 H 12.2-14.7 SEC INR Comment 1.3 0.8-1.4 Activated Partial Thromboplast Time 35 24-35 SEC D-Dimer < 0.27 0.00-0.49 UG/ML Blood Gas Puncture Site L RAD LEFT RAD Blood Gas Patient Temperature 36.5 37 Arterial Blood pH 7.21 *L 7.24 *L 7.37-7.43 Arterial Blood Partial Pressure CO2 127 *H 120 *H 35-45 MMHG Arterial Blood Partial Pressure O2 135 H 102 H 79-93 MMHG Arterial Blood HCO3 50 *H 49 *H 23-27 MMOL/L Arterial Blood Total CO2 53.5 *H 53.0 *H 21.0-31.0 MMOL/L Arterial Blood Oxygen Saturation 99 97 94-100 % Arterial Blood Base Excess 20.9 H 21.2 H -2.5-2.5 MMOL/L Zach Test YES-POS YES-POS Blood Gas Ventilator Setting NO NO Blood Gas Inspired Oxygen 10L 75% Sodium Level 134 L 135-145 MMOL/L Potassium Level 3.3 L 3.6-5.0 MMOL/L Chloride Level 81 L 98-107 MMOL/L Carbon Dioxide Level 41 H 21-32 MMOL/L Anion Gap 12 5-14 MMOL/L Blood Urea Nitrogen 6 L 7-18 MG/DL Creatinine 0.75 0.60-1.30 MG/DL Estimat Glomerular Filtration Rate 86 BUN/Creatinine Ratio 8 Glucose Level 279 H 70-105 MG/DL Glucometer 254 H 70-110 MG/DL Lactic Acid Level 0.77 0.50-2.00 MMOL/L Calcium Level 9.1 8.5-10.1 MG/DL Corrected Calcium 9.3 8.5-10.1 MG/DL Magnesium Level 2.1 1.6-2.4 MG/DL Total Bilirubin 0.9 0.1-1.0 MG/DL Aspartate Amino Transf (AST/SGOT) 10 5-34 U/L Alanine Aminotransferase (ALT/SGPT) 6 0-55 U/L Alkaline Phosphatase 74 40-136 U/L Ammonia 77 H 11-32 UMOL/L Total Creatine Kinase 13 L 29-168 U/L Creatine Kinase MB 1.7 <6.6 NG/ML Myoglobin 31.3 10.0-92.0 NG/ML Troponin I < 0.028 <0.028 NG/ML C-Reactive Protein High Sensitivity 1.34 H 0.00-0.50 MG/DL B-Type Natriuretic Peptide 330.6 H <100.0 PG/ML Total Protein 7.3 6.4-8.2 GM/DL Albumin 3.8 3.2-4.5 GM/DL Amylase Level 23 L 25-125 U/L Lipase 10 8-78 U/L Procalcitonin 0.06 <0.10 NG/ML TSH [place] Testing 0.39 0.35-4.94 UIU/ML Acetaminophen Level < 10 L 10-30 UG/ML Serum Alcohol < 10 <10 MG/DL Influenza Type A (RT-PCR) Not Detected Not Detecte Influenza Type B (RT-PCR) Not Detected Not Detecte SARS-CoV-2 RNA (RT-PCR) Not Detected Not Detecte Urine Color YELLOW Urine Clarity CLEAR Urine pH 6.5 5-9 Urine Specific [place] >=1.030 1.016-1.022 Urine Protein 2+ H NEGATIVE Urine Glucose (UA) 1+ H NEGATIVE Urine Ketones NEGATIVE NEGATIVE Urine Nitrite NEGATIVE NEGATIVE Urine Bilirubin NEGATIVE NEGATIVE Urine Urobilinogen 0.2 < = 1.0 MG/DL Urine Leukocyte Esterase NEGATIVE NEGATIVE Urine RBC (Auto) TRACE-I H NEGATIVE Urine RBC 0-2 /HPF Urine WBC 0-2 /HPF Urine Squamous Epithelial Cells 0-2 /HPF Urine Crystals NONE /LPF Urine Bacteria TRACE /HPF Urine Casts PRESENT /LPF Urine Hyaline Casts 2-5 H /LPF Urine Mucus SMALL H /LPF Urine Culture Indicated NO Urine Opiates Screen NEGATIVE NEGATIVE Urine Oxycodone Screen NEGATIVE NEGATIVE Urine Methadone Screen NEGATIVE NEGATIVE Urine Propoxyphene Screen NEGATIVE NEGATIVE Urine Barbiturates Screen NEGATIVE NEGATIVE Ur Tricyclic Antidepressants Screen NEGATIVE NEGATIVE Urine Phencyclidine Screen NEGATIVE NEGATIVE Urine Amphetamines Screen NEGATIVE NEGATIVE Urine Methamphetamines Screen NEGATIVE NEGATIVE Urine Benzodiazepines Screen NEGATIVE NEGATIVE Urine Cocaine Screen NEGATIVE NEGATIVE Urine Cannabinoids Screen NEGATIVE NEGATIVE My Orders Orders - SERA CHAVEZ DO Ed Iv/Invasive Line Start (11/28/21 22:09) Ekg Tracing (11/28/21:) Catheter(Urinary) Insert & Ass 03,15 (11/28/21 22:09) O2 (11/28/21 22:09) Monitor-Rhythm Ecg Trace Only (11/28/21:09) Chest 1 View, Ap/Pa Only (11/28/21 22:09) Acetaminophen (11/28/21 22:09) Alcohol (11/28/21 22:09) Ammonia (11/28/21 22:09) Amylase (11/28/21 22:09) Arterial Blood Gas (11/28/21 22:19) Bnp [place] (11/28/21 22:09) Cbc With Automated Diff (11/28/21 22:09) Comprehensive Metabolic Panel (11/28/21 22:) Creatine Kinase (11/28/21 22:09) Creatine Kinase Mb (11/28/21 22:09) Hs C Reactive Protein (11/28/21 22:09) Fibrin Degradation Products (11/28/21 22:09) Drug Screen Stat (Urine) (11/28/21 22:) Lactic Acid Analyzer (11/28/21 22:09) Lipase (11/28/21 22:) Magnesium (11/28/21 22:09) Protime With Inr (11/28/21 22:09) Partial Thromboplastin Time (11/28/21 22:) Thyroid Analyzer (11/28/21 22:09) Ua Culture If Indicated (11/28/21:) Erythrocyte Sedimentation Rate (11/28/21 22:09) Myoglobin Serum (11/28/21 22:09) Troponin I Giuseppe (11/28/21 22:09) Albuterol/Ipra Inhalation Soln (Duoneb I (11/28/21 22:15) Rt Request For Service (11/28/21 22:09) Methylprednisolone Sod Succ (Solu-Medrol (11/28/21 22:09) Svn Small Volume Nebulizer (11/28/21 22:09) Albuterol/Ipra Inhalation Soln (Duoneb I (11/28/21 22:15) Dexamethasone Injection (Decadron Injec (11/28/21 22:15) Svn Small Volume Nebulizer (11/28/21 22:09) Procalcitonin (Pct) (11/28/21 22:12) Blood Culture (11/28/21 22:12) Covid 19 Inhouse Test (11/28/21 22:12) Influenza A And B By Pcr (11/28/21 22:12) Isolation Central Supply Req (11/28/21 22:12) Arterial Blood Gas (11/28/21 23:16) Beta Hydroxybutyrate (11/28/21 23:17) Furosemide Injection (Lasix Injection) (11/28/21 23:45) Enoxaparin Injection (Lovenox Injectio (11/28/21 23:45) Enoxaparin Injection (Lovenox Injectio (11/28/21 23:45) Medications Given in ED Current Medications Medications Dose Ordered Sig/Lilo Route Start Time Stop Time Status Last Admin Dose Admin Albuterol/ Ipratropium 3 ml ONCE ONCE INH 11/28/21 22:15 11/28/21 22:16 DC 11/28/21 22:48 3 ML Dexamethasone Sodium Phosphate 20 mg ONCE ONCE IH 11/28/21 22:15 11/28/21 22:16 DC 11/28/21 22:48 20 MG Enoxaparin Sodium 40 mg ONCE ONCE SC 11/28/21 23:45 11/28/21 23:46 DC 11/28/21 23:54 40 MG Enoxaparin Sodium 80 mg ONCE ONCE SC 11/28/21 23:45 11/28/21 23:46 DC 11/28/21 23:54 80 MG Furosemide 80 mg ONCE ONCE IVP 11/28/21 23:45 11/28/21 23:46 DC 11/28/21 23:54 80 MG Vital Signs/I&O 11/28/21 11/28/21 22:08 22:48 Temp 36.5 Pulse 92 90 Resp 26 25 B/P (MAP) 130/84 (99) Pulse Ox 99 93 O2 Delivery Non Rebreather O2 Flow Rate 10.00 75.00 Capillary Refill : Less Than 3 Seconds Blood Pressure Mean: 99 Progress Note : Progress Note PLACED ON BIPAP ON ARRIVAL WITH O2 SATS UP TO 100% RESPIRATIONS ARE LESS LABORED. GIVEN NEB TREATMENT WITH DECREASED WHEEZING AND INCREASED AERATION VITALS REMAIN STABLE NO DETERIORATION IN PT'S CONDITION BUT REMAINS LETHARGIC /SOMEWHAT SEDATED. PT OPENS EYES AND IS ABLE TO ANSWER A FEW VERY SIMPLE QUESTIONS. ECG Initial ECG Impression Date: Nov 28, 2021 Initial ECG Impression Time: 22:21 Initial ECG Rate: 79 Initial ECG Rhythm: A Fib/Flutter Initial ECG Impression: Nonspecific Changes Initial ECG Comparisson: Unchanged Diagnostic Imaging Comments CXR-CHF, PENDING RADIOLOGIST REVIEW Reviewed: Reviewed by Me Departure Communication (Admissions) 1917--SPOKE WITH DR. GONZALEZ, HOSPITALIST, ACCEPTS PT FOR ADMIT. Impression Primary Impression: Acute on chronic respiratory failure with hypoxia and hypercapnia Additional Impressions: Obesity hypoventilation syndrome COPD (chronic obstructive pulmonary disease) CO2 narcosis Non-compliance Chronic atrial fibrillation Uncontrolled diabetes mellitus Dementia Electrolyte imbalance CHF (congestive heart failure) Chronic anemia Disposition: ADMITTED INPATIENT Condition: Improved Admissions Decision to Admit Reason: Admit from ER (General) Decision to Admit/Date: Nov 28, 2021 Time/Decision to Admit Time: 23:35 Departure-Patient Inst. Referrals: KIRBY JUNG MD (PCP/Family) Primary Care Physician SERA CHAVEZ DO Nov 28, 2021 22:48
[2021-11-28 22:50] LABS: ALANINE AMINOTRANSFERASE 6 U/L (0-55); ALBUMIN 3.8 GM/DL (3.2-4.5); ALKALINE PHOSPHATASE 74 U/L (40-136); AMMONIA 77 UMOL/L (11-32); AMYLASE 23 U/L (25-125); BILIRUBIN,TOTAL 0.9 MG/DL (0.1-1.0); BUN/CREATININE RATIO 8; CALCIUM 9.1 MG/DL (8.5-10.1); CARBON DIOXIDE 41 MMOL/L (21-32); CHLORIDE 81 MMOL/L (98-107); CREATINE KINASE 13 U/L (29-168); CREATININE SERUM 0.75 MG/DL (0.60-1.30); GFR ESTIMATED 86; GLUCOSE 279 MG/DL (70-105); LIPASE 10 U/L (8-78); MAGNESIUM 2.1 MG/DL (1.6-2.4); POTASSIUM 3.3 MMOL/L (3.6-5.0); SODIUM 134 MMOL/L (135-145); TOTAL PROTEIN 7.3 GM/DL (6.4-8.2)
[2021-11-28 22:52] LABS: FIBRIN DEGRADATION PRODUCTS < 0.27 UG/ML (0.00-0.49); INR 1.3 (0.8-1.4); PARTIAL THROMBOPLASTIN TIME 35 SEC (24-35); PROTHROMBIN TIME PATIENT 16.2 SEC (12.2-14.7)
[2021-11-28 22:53] LABS: BACTERIA,URINE TRACE /HPF; RBC,URINE 0-2 /HPF; SQUAMOUS EPITHELIAL CELL,UR 0-2 /HPF; WBC,URINE 0-2 /HPF
[2021-11-28 22:54] LABS: ERYTHROCYTE SEDIMENTATION RATE 83 MM/HR (0-30)
[2021-11-28 23:07] LABS: AMPHETAMINE SCREEN, URINE NEGATIVE (NEGATIVE); BARBITURATE SCREEN URINE NEGATIVE (NEGATIVE); BENZODIAZEPINES SCREEN URINE NEGATIVE (NEGATIVE); CANNABINOID SCREEN, URINE NEGATIVE (NEGATIVE); COCAINE SCREEN URINE NEGATIVE (NEGATIVE); METHADONE STAT NEGATIVE (NEGATIVE); METHAMPHETAMINE SCREEN URINE S NEGATIVE (NEGATIVE); OPIATE SCREEN URINE NEGATIVE (NEGATIVE); OXYCODONE STAT NEGATIVE (NEGATIVE); PROPOXYPHENE STAT NEGATIVE (NEGATIVE); TRICYCLIC ANTIDEPRESSANTS SCRE NEGATIVE (NEGATIVE)
[2021-11-28 23:08] LABS: ACETAMINOPHEN < 10 UG/ML (10-30)
[2021-11-28 23:11] LABS: CREATINE KINASE MB 1.7 NG/ML (<6.6); TSH (THYROID ANALYZER) 0.39 UIU/ML (0.35-4.94)
[2021-11-28 23:45] LABS: ABG BASE EXCESS 21.2 MMOL/L (-2.5-2.5); ABG OXYGEN SATURATION 97 % (94-100); ABG PO2 102 MMHG (79-93)
[2021-11-28] MEDS ORDERED: ENOXAPARIN 80 MG/0.8 ML (LOVENOX) SYR SC ONE (23:45)
[2021-11-28] MEDS ORDERED: FUROSEMIDE 40 MG/4 ML INJ (LASIX) IVP ONE (23:45)
[2021-11-28] MEDS ORDERED: ENOXAPARIN 40 MG/0.4 ML (LOVENOX) SYR SC ONE (23:45)
[2021-11-28 23:47] LABS: ABG PCO2 120 MMHG (35-45); ABG PH 7.24 (7.37-7.43)
[2021-11-28 23:48] LABS: ALLENS TEST YES-POS; INSPIRED O2 75%; PATIENT TEMP 37; VENTILATOR NO
[2021-11-29 00:55] VITALS: BP 120/64
[2021-11-29 00:58] VITALS: BP 122/55
[2021-11-29] MEDS ORDERED: RT-ALBUTEROL SULF 2.5 MG/3 ML PRE-MIX VIAL INH PRN (01:15)
--- NOTE | 2021-11-29 01:49 | Tele-ICU Progress Note ---
Progress Note 71F with COPD, OHS, afib, HTN, DM2, hypothyroid, admitted for acute on chronic hypoxic and hypercapneic respiratory failure. Daughter called 911 for possible code blue after finding mother unarousable. Cyanotic with SpO2 49%. Daughter placed home CPAP with improvement to 95% and resolution of cyanois. Patient has multiple recent admission, most recently 10-11-10/15/21 for acute on chronic resp failure, 2/3 for severe hypoglycemia, 11/15- for hyperglycemia, ARF. Patient is frequently noncompliant with oxygen, rx. She is currently minimally arousable, not answering questions. On last admitted, reported to be lethargic but answering questions appropriately. - acute on chronic respiratory failure: currently pH 7.2, CO2 127. Baseline CO2 gradually uptrending over last couple of years, now baseline CO2 around 100. Placed on BiPap with repeat ABG due at 0200. Solumedrol initiated. - AMS: possibly secondary to prolonged hypoxia vs hypercapnia, although not far above baseline. Will monitor with BiPap admin. No CT head done, if not improved in AM will check. - DM: glucose monitoring, sliding scale. Cautious after solumedrol, but just had admit for severe hypoglycemia. Focused Exam Lactate Level 11/28/21 22:14: Lactic Acid Level 0.77 Height, Weight, BMI Height: 5'4.00" Weight: 256lbs. 1.0oz. 116.164234ef; 43.11 BMI Method: Lactic Acid Level Laboratory Tests Test 11/28/21 22:14 Lactic Acid Level 0.77 MMOL/L (0.50-2.00) JO MACKEY MD Nov 29, 2021 01:49
[2021-11-29 02:13] LABS: ABG BASE EXCESS 24.1 MMOL/L (-2.5-2.5); ABG OXYGEN SATURATION 92 % (94-100); ABG PO2 63 MMHG (79-93)
[2021-11-29] MEDS: RT-ALBUTEROL SULF 2.5 MG/3 ML PRE-MIX VIAL INH SCH ×6 (02:13→22:29)
[2021-11-29 02:15] LABS: ABG PCO2 113 MMHG (35-45); ABG PH 7.28 (7.37-7.43); ABG TCO2 55.6 MMOL/L (21.0-31.0); ALLENS TEST YES-POS; INSPIRED O2 60% BIPAP
[2021-11-29 02:16] LABS: PATIENT TEMP 36.4; VENTILATOR NO
[2021-11-29] MEDS ORDERED: methylPREDNISolone 125 MG (Solu-MEDROL) VIAL IV SCH (04:00)
[2021-11-29 04:31] LABS: BASOPHILS % (AUTO) 0 % (0-10); EOSINOPHILS % (AUTO) 0 % (0-10); HEMATOCRIT 35 % (35-52); HEMOGLOBIN 9.6 g/dL (11.5-16.0); LYMPHOCYTES # (AUTO) 0.6 10^3/uL (1.0-4.0); LYMPHOCYTES % (AUTO) 10 % (12-44); MEAN CORPUSCULAR HEMOGLOBIN 26 pg (25-34); MEAN CORPUSCULAR HGB CONC 27 g/dL (32-36); MEAN CORPUSCULAR VOLUME 95 fL (80-99); MEAN PLATELET VOLUME 9.5 fL (9.0-12.2); MONOCYTES # (AUTO) 0.2 10^3/uL (0.0-1.0); MONOCYTES % (AUTO) 4 % (0-12); NEUTROPHILS % (AUTO) 85 % (42-75); PLATELET COUNT 236 10^3/uL (130-400); WHITE BLOOD COUNT 5.9 10^3/uL (4.3-11.0)
[2021-11-29 04:44] LABS: ALBUMIN 3.6 GM/DL (3.2-4.5); POTASSIUM 3.4 MMOL/L (3.6-5.0)
[2021-11-29 04:45] LABS: CALCIUM 9.2 MG/DL (8.5-10.1)
[2021-11-29 04:47] LABS: TOTAL PROTEIN 7.2 GM/DL (6.4-8.2)
[2021-11-29 04:48] LABS: BILIRUBIN,TOTAL 0.9 MG/DL (0.1-1.0)
[2021-11-29 04:50] LABS: CREATININE SERUM 0.74 MG/DL (0.60-1.30); PHOSPHORUS 3.2 MG/DL (2.3-4.7)
[2021-11-29] MEDS: CATHETER FLUSH 10 ML SYR IVP SCH ×3 (05:55→20:55)
[2021-11-29] MEDS ORDERED: KCL 20 MEQ TAB (K-DUR) PO SCH (06:00)
[2021-11-29] MEDS ORDERED: FUROSEMIDE 40 MG/4 ML INJ (LASIX) IV NR (06:00)
[2021-11-29] MEDS ORDERED: MAGNESIUM 1 GM/100 ML IVPB 100 ML IV SCH (06:00)
[2021-11-29] MEDS ORDERED: NS IV 500 ML 500 ML ONE (06:01)
[2021-11-29] MEDS: POTASSIUM CL 10MEQ/50ML IVPB 50 ML IV SCH ×2 (06:12→07:25)
[2021-11-29] MEDS: inSUlin ASPART (NovoLOG) 1 UNIT/0.01 ML (CHARGE PER UNIT) SC SCH ×5 (06:29→20:49)
[2021-11-29 07:13] LABS: ABG BASE EXCESS 25.3 MMOL/L (-2.5-2.5); ABG OXYGEN SATURATION 96 % (94-100); ABG PH 7.37 (7.37-7.43); ABG PO2 77 MMHG (79-93)
[2021-11-29 07:14] LABS: ALLENS TEST YES-POS; INSPIRED O2 50%; PATIENT TEMP 37.6; VENTILATOR NO
[2021-11-29 07:16] LABS: ABG PCO2 93 MMHG (35-45)
--- NOTE | 2021-11-29 07:42 | Diagnostic Imaging Report ---
INDICATION: Altered mental status and hypoxia AP view of the chest is obtained with comparison made to study of 11/15/2021. Study somewhat limited by motion. Cardiomegaly and pulmonary venous congestion are present with increasing bilateral pulmonary density indicating pulmonary edema. No pneumothorax identified. No significant pleural fluid is appreciated. IMPRESSION: Limited study reveals probable congestive heart failure and increasing pulmonary edema. Dictated by: Dictated on workstation # [id number]
[2021-11-29] MEDS ORDERED: predniSONE 20 MG TAB PO NR (08:29)
--- NOTE | 2021-11-29 09:04 | History & Physical ---
JEEVANHIGINIO MED STUDENT 11/29/21 0904: History of Present Illness History of Present Illness Reason for visit/HPI HPI per ER: PT ARRIVES VIA EMS FROM HOME--PT LIVES ALONE. EMS REPORT THEY WERE CALLED TO THE RESIDENCE FOR A POSSIBLE CODE BLUE. EMS REPORT THAT DAUGHTER WENT TO CHECK ON PATIENT, AND FOUND HER UNRESPONSIVE AND CYANOTIC--LAST KNOW WELL TIME IS UNKNOWN. EMS REPORT THAT INITIAL O2 SAT WAS 49% BY FIRE DEPT. PT WAS NOT WEARING O2 OR CPAP/BIPAP AND DAUGHTER PUT CPAP ON. EMS REPORT THAT WHEN THEY ARRIVED, PT WAS AWAKE AND O2 SAT WAS 95% AND NO LONGER CYANOTIC. EMS PLACED PT ON NON REBREATHER MASK AND 15L, THEN DECREASED IT TO 10 LITERS, AND O2 SAT REMAINED 99%. ACCUCHECK WAS 317 FOR EMS. PT WITH COPD AND OBESITY HYPOVENTILATION SYNDROME, AND IS SUPPOSED TO BE ON O2 AT 5L/NC CONTINUOUSLY, AND WEAR CPAP/BIPAP AT NIGHT, BUT IS NON-COMPLIANT WITH CPAP/BIPAP ON ARRIVAL, PT IS AWAKE BUT LETHARGIC, PT ABLE TO ANSWER A FEW QUESTIONS, AND IS ORIENTED TO PERSON, PLACE, TIME AND GROSSLY ORIENTED TO SITUATION SHE STATES SHE IS HERE BECAUSE SHE "DOESN'T FEEL GOOD" "OXYGEN" AND ADMITS TO SHORTNESS OF BREATH, BUT UNABLE TO ELABORATE OR GIVE ANY MORE INFORMATION ON ARRIVAL. PT WAS ADMITTED 10/11-10/15/21 FOR ACUTE ON CHRONIC RESPIRATORY FAILURE. PT ADMITTED 11/04-11/09/21 FOR SEVERE HYPOGLYCEMIA. PT ADMITTED 11/15- 11/17/21 FOR ELEVATED BLOOD SUGAR AND ACUTE ON CHRONIC RESPIRATORY FAILURE. SEE DETAILS IN OLD CHARTS. PT WITH LONG HISTORY OF NON-COMPLIANCE IN ALL ASPECTS OF CARE EMS STAFF ARE VERY FAMILIAR WITH PATIENT, THEY ARE FREQUENTLY CALLED TO RESIDENCE FOR VARIOUS COMPLAINTS--LIFT ASSISTS, HYPOGLYCEMIA, TRANSFER TO ER--NORMALLY GOES TO [facility]. PCP: DR. TRUONG AT [facility] IN [place] HPI: Pt is a 71y/o F with PMH of OHVS, COPD, CHF, Afib who presented to the ICU Pt on Bipap this am (30RR, 20/10 50%) breathing comfortably without distress satting 99%. Pt is a chronic CO2 retainer with prior diagnosis of COPD and Obesity hyperventilation syndrome. ABG this am is 7.37/93/77/55, per chart reiew this is around pts baseline - should be on 5LPM during day and NIPPV bipap/cpap at night - compliance is a recurrent issue in the past - asked pt if she uses her mask at night states - 'yes occasionally'. Asked why only occationally - but I have a hard time understanding pt on the Bipap - Nurse was getting ready to switch her over to NC this am. Pt was amitted to ICU with acute on chronic hypoxic and hypercapnic resp failure. Pt is afebrile with no clear signs of infection. Pt denies and chest pain, abd pain or increased sputum prod recently. Date of Admission Nov 28, 2021 at 23:35 Date Seen by a Provider: Nov 29, 2021 Time Seen by a Provider: 08:35 I consulted on this patient on 11/29/21 09:00 Attending Physician Charity Seals MD Admitting Physician Efren Truong MD Consult Kelsea Gentile MD Allergies and Home Medications Allergies Coded Allergies: clarithromycin (Verified Allergy, Unknown, 11/18/18) moxifloxacin (Verified Allergy, Unknown, 11/18/18) nitrofurantoin (Verified Allergy, Unknown, 11/18/18) penicillin G (Verified Allergy, Unknown, Pt has received Omnicef & cephalexin in the past, 11/19/18) Pt has received Omnicef & cephalexin in the past (from External med history) sulfacetamide (Verified Allergy, Unknown, 11/18/18) trazodone (Verified Allergy, Unknown, 11/18/18) Patient Home Medication List Acetazolamide (Acetazolamide) 250 Mg Tablet, 250 MG PO BID, (Reported) Entered as Reported by: FRANCIA MARIE on 11/29/21 1442 Last Action: Continued Albuterol Sulfate (Ventolin Hfa) 18 Gm Hfa.aer.ad, 2 PUFF INH QID PRN for SHORTNESS OF BREATH, (Reported) Entered as Reported by: RICKI MCCORMACK on 11/19/18 1120 Last Action: Held Albuterol Sulfate (Albuterol Sulfate) 2.5 Mg/3 Ml Vial.neb, 3 ML NEB Q6H PRN for SHORTNESS OF BREATH, (Reported) Entered as Reported by: FRANCIA MARIE on 11/04/21 1151 Last Action: Held Apixaban (Eliquis) 5 Mg Tablet, 5 MG PO BID, (Reported) Entered as Reported by: ADEN CALDWELL on 11/30/20 1623 Last Action: Continued Aripiprazole (Aripiprazole) 20 Mg Tablet, 20 MG PO DAILY, (Reported) Entered as Reported by: FRANCIA MARIE on 11/04/21 1037 Last Action: Converted Fexofenadine HCl (Jennifer Allergy) 180 Mg Tablet, 180 MG PO DAILY, (Reported) Entered as Reported by: FRANCIA MARIE on 10/12/211401 Last Action: Converted Furosemide (Furosemide) 40 Mg Tablet, 40 MG PO DAILY, (Reported) Entered as Reported by: FRANCIA MARIE on 10/12/211401 Last Action: Continued Insulin Aspart (Novolog Flexpen) 300 Units/3 Ml Solution, 4 UNITS SQ AC, (Reported) Entered as Reported by: FRANCIA MARIE on 11/29/21 144 Last Action: Held Insulin Detemir (Levemir Flextouch) 100 Unit/1 Ml Insuln.pen, 8 UNIT SQ BID, (Reported) Entered as Reported by: FRANCIA MARIE on 11/29/211441 Last Action: Held Isosorbide Mononitrate (Isosorbide Mononitrate ER) 60 Mg Tab, 60 MG PO DAILY, (Reported) Entered as Reported by: FRANCIA MARIE on 10/12/211401 Last Action: Continued Lamotrigine (Lamotrigine) 25 Mg Tablet, 25 MG PO BID, (Reported) Entered as Reported by: RICKI MCCORMACK on 11/19/18 1049 Last Action: Continued Levothyroxine Sodium (Levothyroxine Sodium) 25 Mcg Tablet, 25 MCG PO DAILY, (Reported) Entered as Reported by: RICKI MCCORMACK on 11/19/18 104 Last Action: Continued Lidocaine (Lidocaine 5% Patch) 1 Each Adh..patch, 1 PAT TD DAILY, (Reported) Entered as Reported by: FRANCIA MARIE on 10/12/211401 Last Action: Continued Nystatin (Nystatin) 15 Gm Cream..g., 0 GM TP TID Prescribed by: LISA ACHARYA on 11/09/21 1052 Last Action: Held Olopatadine HCl (Olopatadine HCl) 2.5 Ml Drops, 1 DROP OU HS, (Reported) Entered as Reported by: FRANCIA MARIE on 10/12/21 140 Last Action: Converted Pantoprazole Sodium (Pantoprazole Sodium) 20 Mg Tablet.dr, 20 MG PO DAILY, (Reported) Entered as Reported by: FRANCIA MARIE on 10/12/21 140 Last Action: Continued Potassium Chloride (K-Tab ER) 10 Meq Tablet.er, 20 MEQ PO BID, (Reported) Entered as Reported by: ADEN CALDWELL on 11/30/20 1623 Last Action: Held Sodium Chloride (Deep Sea) 44 Ml [place], 1 SPRAY NSEACH QID PRN for DRY NOSE, (Reported) Entered as Reported by: FRANCIA MARIE on 11/29/21 144 Last Action: Held Zafirlukast (Zafirlukast) 20 Mg Tablet, 20 MG PO BID, (Reported) Entered as Reported by: RICKI MCCORMACK on 11/19/18 1049 Last Action: Continued Discontinued Medications Acetazolamide (Acetazolamide) 250 Mg Tablet, 250 MG PO BID Discontinued Reason: Duplicate Order Prescribed by: LISA ACHARYA on 11/09/211051 Last Action: Discontinued Hydrocodone Bit/Acetaminophen (HYDROcodone/APAP 5 MG/325 MG TAB) 1 Tab Tab, 1 EA PO Q4H PRN for PAIN-MODERATE (5-7) Discontinued Reason: No Longer Taking Prescribed by: LISA ACHARYA on 11/09/211052 Last Action: Discontinued Insulin Aspart (Novolog Flexpen) 300 Units/3 Ml Solution, 4 UNITS SQ AC Discontinued Reason: Duplicate Order Prescribed by: LISA ACHARYA on 11/09/211051 Last Action: Discontinued Insulin Detemir (Levemir Flextouch) 100 Unit/1 Ml Insuln.pen, 8 UNIT SQ BID Discontinued Reason: Duplicate Order Prescribed by: LISA ACHARYA on 11/09/211051 Last Action: Discontinued Sodium Chloride (Deep Sea) 44 Ml [place], 0 ML NA QID PRN for DRY NOSE Discontinued Reason: No Longer Taking Prescribed by: LISA ACHARYA on 11/09/211051 Last Action: Discontinued Past Qaonndw-Axijxh-Ixrxhr Hx Patient Social History Tobacco Use?: Yes Tobacco type used: Cigarettes Smoking Status: Former Smoker Use of E-Cig and/or Vaping dev: No Substance use?: No Alcohol Use?: No Pt feels they are or have been: Unable to obtain Immunizations Up To Date First/Initial COVID19 Vaccinat: Ronnie 2020 Second COVID19 Vaccination Luis: Ronnie 2020 Tetanus Booster (TDap): Unknown Current Status Advance Directives: Unable to obtain Communicates: Verbally Primary Language: Lithuanian Preferred Spoken Language: Lithuanian Past Medical History Surgeries: Abdominal, Section, Gallbladder, Hysterectomy, Tonsillec luc Sleep Apnea, COPD Currently Using CPAP: No Currently Using BIPAP: Yes (uses at night) Atrial Fibrillation, Chronic Edema/Swelling, High Cholesterol, Hypertension 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 SOCIAL HISTORY: -SMOKED 2 PPD, QUIT > 10 YEARS AGO -ETOH-DENIES USE -DRUGS-DENIES USE Review of Systems Constitutional: No chills, No diaphoresis, No fever EENTM: No nose congestion, No throat pain Respiratory: dyspnea on exertion; No hemoptysis, No phlegm; short of breath, wheezing Cardiovascular: No chest pain; edema; No palpitations Gastrointestinal: No abdominal pain, No constipation, No diarrhea Genitourinary: No dysuria, No frequency Musculoskeletal: no symptoms reported Skin: No change in color, No change in hair/nails Psychiatric/Neurological: Denies Headache, Denies Seizure, Denies Tremors Physical Exam Vital Signs Vital Signs - First Documented 11/28/21 11/29/21 22:08 00:55 Temp 36.5 Pulse 92 Resp 26 B/P (MAP) 130/84 (99) Pulse Ox 99 O2 Delivery Non Rebreather O2 Flow Rate 10.00 FiO2 60 Capillary Refill : Less Than 3 Seconds Height, Weight, BMI Height: 5'4.00" Weight: 256lbs. 1.0oz. 116.225275am; 43.11 BMI Method: General Appearance: No Apparent Distress, Obese Eyes: Bilateral Eye Normal Inspection, Bilateral Eye EOMI HEENT: PERRL/EOMI, Normal ENT Inspection Neck: Normal Inspection, Non Tender Respiratory: Chest Non Tender, No Accessory Muscle Use, No Respiratory Distress, Decreased Breath Sounds, Wheezing Cardiovascular: No Murmur, Normal Peripheral Pulses, Irregularly Irregular (with normal range rate ) Gastrointestinal: Normal Bowel Sounds, Non Tender, Soft Rectal: Deferred Extremity: No Calf Tenderness, Pedal Edema Neurologic/Psychiatric: Alert, No Motor/Sensory Deficits, Normal Mood/Affect Skin: Normal Color, Warm/Dry, Other (some b/l stasis dermatitis ) Assessment/Plan Assessment and Plan Acute on Chronic Hypoxic and Hypercapnic Resp Failure COPD (home day time O2 req at 5LPM) Obesity hypoventilation syndrome CHFpEF - per chart review - Echocardiogram was done in November [address] Hassan as ejection fraction 50 to 55%. Mild dilatation of the left atrium Morbid Obesity Etiology to acute resp failure: Likely COPD exacerbation with home therapy non-compliance compounded with possible CHF exacerbation Vs an infectious etiology. Pt afebrile, normal u/a, WBC WNL, COVID/FLU neg. CXR: Limited study reveals probable congestive heart failure and increasing pulmonary edema. 07:00 11/29 AB.37/93/77/55 Prednisone 40 PO - got solumedrol on admission. Nebs. CPAP HS ABs do not currently appear indicated.... continue to monitor for need. Needs SS consult - currently lives at home alone... given pts health status and recurrent admissions to hospital related to non-compliance patient needs much more outpt care assistance then currently utilized. Dementia High risk for delirium, pt currently cooperative and appears around baseline function per chart review. NIDDM (type 2) Paroxysmal afib - rate controlled. Currently SSI and 120 lovenox. Could probably restart home meds later today. Code status: FULL code DVT ppx: full dose lovenox GI ppx: 40 protonix Lines/tubes: PIV and sims cath Dispo: Pt to floor today. Admission Diagnosis Admission Status: Inpatient Order (span 2 midnights) Reason for Inpatient Admission: Acute on Chronic Hypoxic and Hypercapnic Resp Failure KELSEA GENTILE MD 11/30/21 1037: Allergies and Home Medications Allergies Coded Allergies: clarithromycin (Verified Allergy, Unknown, 11/18/18) moxifloxacin (Verified Allergy, Unknown, 11/18/18) nitrofurantoin (Verified Allergy, Unknown, 11/18/18) penicillin G (Verified Allergy, Unknown, Pt has received Omnicef & cephalexin in the past, 11/19/18) Pt has received Omnicef & cephalexin in the past (from External med history) sulfacetamide (Verified Allergy, Unknown, 11/18/18) trazodone (Verified Allergy, Unknown, 11/18/18) Patient Home Medication List Acetazolamide (Acetazolamide) 250 Mg Tablet, 250 MG PO BID, (Reported) Entered as Reported by: FRANCIA MARIE on 11/29/21 1442 Last Action: Continued Albuterol Sulfate (Ventolin Hfa) 18 Gm Hfa.aer.ad, 2 PUFF INH QID PRN for SHORTNESS OF BREATH, (Reported) Entered as Reported by: RICKI MCCORMACK on 11/19/18 1120 Last Action: Held Albuterol Sulfate (Albuterol Sulfate) 2.5 Mg/3 Ml Vial.neb, 3 ML NEB Q6H PRN for SHORTNESS OF BREATH, (Reported) Entered as Reported by: FRANCIA MARIE on 11/04/21 1151 Last Action: Held Apixaban (Eliquis) 5 Mg Tablet, 5 MG PO BID, (Reported) Entered as Reported by: ADEN CALDWELL on 11/30/20 1623 Last Action: Continued Aripiprazole (Aripiprazole) 20 Mg Tablet, 20 MG PO DAILY, (Reported) Entered as Reported by: FRANCIA MARIE on 11/04/21 1037 Last Action: Converted Fexofenadine HCl (Jennifer Allergy) 180 Mg Tablet, 180 MG PO DAILY, (Reported) Entered as Reported by: FRANCIA MARIE on 10/12/21 1402 Last Action: Converted Furosemide (Furosemide) 40 Mg Tablet, 40 MG PO DAILY, (Reported) Entered as Reported by: FRANCIA MARIE on 10/12/21 1402 Last Action: Continued Insulin Aspart (Novolog Flexpen) 300 Units/3 Ml Solution, 4 UNITS SQ AC, (Reported) Entered as Reported by: FRANCIA MARIE on 11/29/21 144 Last Action: Held Insulin Detemir (Levemir Flextouch) 100 Unit/1 Ml Insuln.pen, 8 UNIT SQ BID, (Reported) Entered as Reported by: FRANCIA MARIE on 11/29/21 144 Last Action: Held Isosorbide Mononitrate (Isosorbide Mononitrate ER) 60 Mg Tab, 60 MG PO DAILY, (Reported) Entered as Reported by: FRANCIA MARIE on 10/12/211401 Last Action: Continued Lamotrigine (Lamotrigine) 25 Mg Tablet, 25 MG PO BID, (Reported) Entered as Reported by: RICKI MCCORMACK on 11/19/18 104 Last Action: Continued Levothyroxine Sodium (Levothyroxine Sodium) 25 Mcg Tablet, 25 MCG PO DAILY, (Reported) Entered as Reported by: RICKI MCCORMACK on 11/19/18 104 Last Action: Continued Lidocaine (Lidocaine 5% Patch) 1 Each Adh..patch, 1 PAT TD DAILY, (Reported) Entered as Reported by: FRANCIA MARIE on 10/12/211401 Last Action: Continued Nystatin (Nystatin) 15 Gm Cream..g., 0 GM TP TID Prescribed by: LISA ACHARYA on 11/09/21 105 Last Action: Held Olopatadine HCl (Olopatadine HCl) 2.5 Ml Drops, 1 DROP OU HS, (Reported) Entered as Reported by: FRANCIA MARIE on 10/12/211401 Last Action: Converted Pantoprazole Sodium (Pantoprazole Sodium) 20 Mg Tablet.dr, 20 MG PO DAILY, (Reported) Entered as Reported by: FRANCIA MARIE on 10/12/211401 Last Action: Continued Potassium Chloride (K-Tab ER) 10 Meq Tablet.er, 20 MEQ PO BID, (Reported) Entered as Reported by: ADEN CALDWELL on 11/30/20 1623 Last Action: Held Sodium Chloride (Deep Sea) 44 Ml [place], 1 SPRAY NSEACH QID PRN for DRY NOSE, (Reported) Entered as Reported by: FRANCIA MARIE on 11/29/21 1442 Last Action: Held Zafirlukast (Zafirlukast) 20 Mg Tablet, 20 MG PO BID, (Reported) Entered as Reported by: RICKI MCCORMACK on 11/19/18 104 Last Action: Continued Discontinued Medications Acetazolamide (Acetazolamide) 250 Mg Tablet, 250 MG PO BID Discontinued Reason: Duplicate Order Prescribed by: LISA ACHARYA on 11/09/21 105 Last Action: Discontinued Hydrocodone Bit/Acetaminophen (HYDROcodone/APAP 5 MG/325 MG TAB) 1 Tab Tab, 1 EA PO Q4H PRN for PAIN-MODERATE (5-7) Discontinued Reason: No Longer Taking Prescribed by: LISA ACHARYA on 11/09/211052 Last Action: Discontinued Insulin Aspart (Novolog Flexpen) 300 Units/3 Ml Solution, 4 UNITS SQ AC Discontinued Reason: Duplicate Order Prescribed by: LISA ACHARYA on 11/09/211051 Last Action: Discontinued Insulin Detemir (Levemir Flextouch) 100 Unit/1 Ml Insuln.pen, 8 UNIT SQ BID Discontinued Reason: Duplicate Order Prescribed by: LISA ACHARYA on 11/09/211051 Last Action: Discontinued Sodium Chloride (Deep Sea) 44 Ml [place], 0 ML NA QID PRN for DRY NOSE Discontinued Reason: No Longer Taking Prescribed by: LISA ACHARYA on 11/09/211051 Last Action: Discontinued Supervisory-Addendum Brief Verification & Attestation Participated in pt care: history, MDM, physical Personally performed: exam, history, MDM, supervision of care Care discussed with: Medical Student Procedures: n/a Results interpretation: Verified all documentation A medical student performed and documented this service. I reviewed all information documented by the medical student and made modifications to such information, when appropriate. Medical student performed patients physical exam. Medical decision making was done during tele-rounds with this medical student and a bedside RN . Plans in collaboration with bedside consultants and IM MDs. Discussed with RN to reach out if any questions or concerns A total of _ minutes of critical care time was devoted to this patient today, required to treat and/or prevent further deterioration of critical care condition ( as above) . HIGINIO CHEW MED STUDENT Nov 29, 2021 09:04 KELSEA GENTILE MD Nov 30, 2021 10:37
--- NOTE | 2021-11-29 09:13 | Diagnostic Imaging Report ---
INDICATION: Shortness of air, respiratory failure. TIME OF EXAM: 8:57 AM. COMPARISON: Correlation is made with the prior chest of one day earlier. FINDINGS: The heart is enlarged. There is central congestion noted. There has, however, been some overlying overall improvement in the congestive changes since yesterday. There appears to be a small left effusion. There is no pneumothorax. IMPRESSION: Improving congestive changes when compared to the examination of 1 day earlier. Dictated by: Dictated on workstation # [id number]
[2021-11-29] MEDS ORDERED: ENOXAPARIN 120 MG/0.8 ML (LOVENOX) SQ NR (12:00)
--- NOTE | 2021-11-29 12:10 | History & Physical-Hospitalist ---
History of Present Illness HPI/Chief Complaint Imelda Yañez is a 70 year old female with PMH HTN, T2DM, HLD, COPD, AFib, GERD, hypothyroidism, morbid obesity, obesity hypoventilation syndrome, who presented with shortness of breath. She reports being non-compliant with her BiPAP. She says she takes it off without knowing. Her daughter found her unresponsive and EMS was called. She is awake and alert on my exam. She is not short of breath at this time. She denies fevers and chills. She denies cough. She denies abdominal pain, nausea, vomiting, and diarrhea. She denies chest pain and palpitations. Source: patient Exam Limitations: no limitations Date Seen 11/29/21 Time Seen by a Provider: 09:25 Attending Physician Jitendra Gonzalez MD PCP Efren Truong MD Referring Physician Date of Admission Nov 28, 2021 at 23:35 Home Medications & Allergies Home Medications Reviewed patient Home Medication Reconciliation performed by pharmacy medication reconciliations tax map technician and/or nursing. Patients Allergies have been reviewed. Allergies Allergies Coded Allergies clarithromycin (Verified Allergy, Unknown, 11/18/18) moxifloxacin (Verified Allergy, Unknown, 11/18/18) nitrofurantoin (Verified Allergy, Unknown, 11/18/18) penicillin G (Verified Allergy, Unknown, Pt has received Omnicef & cephalexin in the past, 11/19/18) Pt has received Omnicef & cephalexin in the past (from External med history) sulfacetamide (Verified Allergy, Unknown, 11/18/18) trazodone (Verified Allergy, Unknown, 11/18/18) Past Hhsmnwa-Hcopsp-Jltgxv Hx Patient Social History Tobacco Use?: Yes Tobacco type used: Cigarettes Smoking Status: Former Smoker Use of E-Cig and/or Vaping dev: No Substance use?: No Alcohol Use?: No Pt feels they are or have been: Unable to obtain Immunizations Up To Date First/Initial COVID19 Vaccinat: Faizan and Faizan - 2020 Second COVID19 Vaccination Luis: Faizan and 2020 Tetanus Booster (TDap): Unknown Current Status Advance Directives: Unable to obtain Communicates: Verbally Primary Language: Italian Preferred Spoken Language: Italian Past Medical History Surgeries: Abdominal, Section, Gallbladder, Hysterectomy, Tonsillectomy Sleep Apnea, COPD Currently Using CPAP: No Currently Using BIPAP: Yes (uses at night) Atrial Fibrillation, Chronic Edema/Swelling, High Cholesterol, Hypertension 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 SOCIAL HISTORY: -SMOKED 2 PPD, QUIT > 10 YEARS AGO -ETOH-DENIES USE -DRUGS-DENIES USE Review of Systems Constitutional: no symptoms reported EENTM: no symptoms reported Respiratory: short of breath Cardiovascular: no symptoms reported Gastrointestinal: no symptoms reported Genitourinary: no symptoms reported Musculoskeletal: no symptoms reported Skin: no symptoms reported Psychiatric/Neurological: No Symptoms Reported Physical Exam Physical Exam Vital Signs Vital Signs - First Documented 11/28/21 11/29/21 22:08 00:55 Temp 36.5 Pulse 92 Resp 26 B/P (MAP) 130/84 (99) Pulse Ox 99 O2 Delivery Non Rebreather O2 Flow Rate 10.00 FiO2 60 Capillary Refill : Less Than 3 Seconds Height, Weight, BMI Height: 5'4.00" Weight: 256lbs. 1.0oz. 116.167141sj; 43.11 BMI Method: General Appearance: No Apparent Distress, Chronically ill, Obese HEENT: PERRL/EOMI, Pharynx Normal Neck: Normal Inspection, Supple Respiratory: No Respiratory Distress, Decreased Breath Sounds Cardiovascular: Regular Rate, Rhythm, No Murmur Gastrointestinal: Normal Bowel Sounds, Non Tender, Soft Extremity: Normal Inspection, Pedal Edema Neurologic/Psychiatric: Alert, Normal Mood/Affect Skin: Normal Color, Warm/Dry Results Results/Procedures Labs Laboratory Tests 11/28/21 22:14 11/29/21 04:15 Patient resulted labs reviewed. Imaging: Reviewed Imaging Report Assessment/Plan Admission Diagnosis Acute on chronic respiratory failure with hypoxia and hypercapnia Admission Status: Inpatient Order (span 2 midnights) Reason for Inpatient Admission: Respiratory failure Assessment and Plan Acute on chronic respiratory failure with hypoxia and hypercapnia Obesity hypoventilation syndrome Morbid obesity Pulmonary hypertension ABG with significantly elevated CO2, decresaed pH, worsened from baseline Started on BiPAP ABG improved, now on nasal cannula Consult palliative care, would benefit from hospice Transfer to 4th floor T2DM Continue Levemir Continue Novolog with meals Sliding scale insulin HTN HLD GERD Hypothyroidism AFib COPD Continue home meds after med rec completed Critical Care Critically Ill Patient Diagnosis/Problems Diagnosis/Problems (1) Acute on chronic respiratory failure with hypoxia and hypercapnia Status: Acute (2) Morbid obesity Status: Chronic (3) Obesity hypoventilation syndrome Status: Acute (4) CO2 narcosis Status: Acute (5) Non-compliance Status: Acute (6) Poor prognosis Status: Acute JITENDRA GONZALEZ MD Nov 29, 2021 12:10
[2021-11-29] MEDS ORDERED: ACET250T3 PO (14:42)
[2021-11-29] MEDS ORDERED: INSU100I29 SQ (14:42)
[2021-11-29] MEDS ORDERED: SODI44SP2 NSEACH (14:42)
[2021-11-29] MEDS ORDERED: INSU100I14 SQ (14:42)
[2021-11-29] MEDS: guaiFENesin (MUCINEX) 600 MG TAB PO SCH (20:45)
[2021-11-29] MEDS: acetaZOLAMIDE 250 MG (DIAMOX) TAB PO SCH (20:45)
[2021-11-29] MEDS: APIXABAN 5 MG (ELIQUIS) TABLET PO SCH (20:45)
[2021-11-29] MEDS: lamoTRIgine 25 MG (LaMICtal) TAB PO SCH (20:48)
[2021-11-29] MEDS: ZAFIRLUKAST (ACCOLATE) 20 MG TAB PO SCH (20:49)
[2021-11-29] MEDS ORDERED: OLOPATADINE 0.1 % OPHTH (PATANOL) 5 ML BTL OU SCH (21:00)
[2021-11-30] MEDS: RT-ALBUTEROL SULF 2.5 MG/3 ML PRE-MIX VIAL INH SCH ×4 (02:24→14:15)
[2021-11-30] MEDS: inSUlin ASPART (NovoLOG) 1 UNIT/0.01 ML (CHARGE PER UNIT) SC SCH ×4 (05:57→17:00)
[2021-11-30 05:58] LABS: BASOPHILS % (AUTO) 1 % (0-10); EOSINOPHILS # (AUTO) 0.2 10^3/uL (0.0-0.3); EOSINOPHILS % (AUTO) 2 % (0-10); HEMATOCRIT 30 % (35-52); HEMOGLOBIN 8.5 g/dL (11.5-16.0); LYMPHOCYTES # (AUTO) 1.2 10^3/uL (1.0-4.0); LYMPHOCYTES % (AUTO) 18 % (12-44); MEAN CORPUSCULAR HEMOGLOBIN 26 pg (25-34); MEAN CORPUSCULAR HGB CONC 28 g/dL (32-36); MEAN CORPUSCULAR VOLUME 91 fL (80-99); MEAN PLATELET VOLUME 9.4 fL (9.0-12.2); MONOCYTES # (AUTO) 0.6 10^3/uL (0.0-1.0); MONOCYTES % (AUTO) 9 % (0-12); NEUTROPHILS # (AUTO) 4.6 10^3/uL (1.8-7.8); NEUTROPHILS % (AUTO) 70 % (42-75); PLATELET COUNT 247 10^3/uL (130-400); WHITE BLOOD COUNT 6.5 10^3/uL (4.3-11.0)
[2021-11-30 06:03] LABS: ALBUMIN 3.3 GM/DL (3.2-4.5); POTASSIUM 2.8 MMOL/L (3.6-5.0)
[2021-11-30 06:04] LABS: CALCIUM 9.1 MG/DL (8.5-10.1)
[2021-11-30 06:05] LABS: TOTAL PROTEIN 6.5 GM/DL (6.4-8.2)
[2021-11-30 06:07] LABS: BILIRUBIN,TOTAL 0.8 MG/DL (0.1-1.0)
[2021-11-30 06:09] LABS: CREATININE SERUM 0.62 MG/DL (0.60-1.30)
[2021-11-30] MEDS: CATHETER FLUSH 10 ML SYR IVP SCH ×2 (06:58→12:01)
[2021-11-30] MEDS ORDERED: predniSONE 20 MG TAB PO SCH (07:00)
[2021-11-30] MEDS ORDERED: KCL 20 MEQ TAB (K-DUR) PO ONE (08:00)
[2021-11-30] MEDS ORDERED: NS IV 500 ML 500 ML ONE (08:34)
[2021-11-30] MEDS: POTASSIUM CL 10MEQ/50ML IVPB 50 ML IV SCH ×4 (08:57→13:15)
[2021-11-30] MEDS: guaiFENesin (MUCINEX) 600 MG TAB PO SCH (08:59)
[2021-11-30] MEDS: lamoTRIgine 25 MG (LaMICtal) TAB PO SCH (08:59)
[2021-11-30] MEDS: APIXABAN 5 MG (ELIQUIS) TABLET PO SCH (08:59)
[2021-11-30] MEDS: acetaZOLAMIDE 250 MG (DIAMOX) TAB PO SCH (08:59)
[2021-11-30] MEDS ORDERED: LIDOCAINE 4% (SALONPAS) PATCH TP SCH (09:00)
[2021-11-30] MEDS ORDERED: LEVOTHYROXINE 25 MCG (LEVOTHROID) TAB PO SCH (09:00)
[2021-11-30] MEDS ORDERED: LORATADINE (CLARITIN) 10 MG TAB PO SCH (09:00)
[2021-11-30] MEDS ORDERED: ISOSORBIDE MONONITRATE 60 MG (IMDUR) TAB PO SCH (09:00)
[2021-11-30] MEDS ORDERED: PANTOPRAZOLE 20 MG TABLET (PROTONIX) PO SCH (09:00)
[2021-11-30] MEDS ORDERED: FUROSEMIDE 40 MG (LASIX) TAB PO SCH (09:00)
[2021-11-30] MEDS: ZAFIRLUKAST (ACCOLATE) 20 MG TAB PO SCH (11:20)
--- NOTE | 2021-11-30 17:00 | Discharge Summary ---
Discharge Summary Hospital Course Problems/Dx: (1) Acute on chronic respiratory failure with hypoxia and hypercapnia Status: Acute (2) Morbid obesity Status: Chronic (3) Obesity hypoventilation syndrome Status: Acute (4) CO2 narcosis Status: Acute (5) Non-compliance Status: Acute (6) Poor prognosis Status: Acute Hospital Course Date of Admission: Nov 28, 2021 at 23:35 Admission Diagnosis : Acute on chronic respiratory failure with hypoxia and hypercapnia due to obesity hypoventilation syndrome Family Physician/Provider: Efren Truong MD Date of Discharge: 11/30/21 Discharge Diagnosis: Acute on chronic respiratory failure with hypoxia and hypercapnia due to obesity hypoventilation syndrome Hospital Course: Imelda Yañez is a 71 year old female with morbid obesity, obesity hypoventilation syndrome, pulmonary hypertension, who has been non-compliant with her BiPAP and has had multiple recent admissions with acute on chronic hypercapnic respiratory failure. She was placed on BiPAP and her acute hypercapnia resolved. She was suffering from CO2 narcosis on arrival which resolved. Palliative care was consulted and she agreed to [facility]. She was discharged home in improved, but poor condition. Labs and Pending Lab Test: Laboratory Tests 11/29/21 20:33: Glucometer 190H 11/30/21 05:30: White Blood Count 6.5, Red Blood Count 3.33L, Hemoglobin 8.5L, Hematocrit 30L, Mean Corpuscular Volume 91, Mean Corpuscular Hemoglobin 26, Mean Corpuscular Hemoglobin Concent 28L, Red Cell Distribution Width 17.3H, Platelet Count 247, Mean Platelet Volume 9.4, Immature Granulocyte % (Auto) 0, Neutrophils (%) (Auto) 70, Lymphocytes (%) (Auto) 18, Monocytes (%) (Auto) 9, Eosinophils (%) (Auto) 2, Basophils (%) (Auto) 1, Neutrophils # (Auto) 4.6, Lymphocytes # (Auto) 1.2, Monocytes # (Auto) 0.6, Eosinophils # (Auto) 0.2, Basophils # (Auto) 0.0, Immature Granulocyte # (Auto) 0.0, Sodium Level 135, Potassium Level 2.8L, Chloride Level 78L, Carbon Dioxide Level 46*H, Anion Gap 11, Blood Urea Nitrogen 9, Creatinine 0.62, Estimat Glomerular Filtration Rate 96, BUN/Creatinine Ratio 15, Glucose Level 105, Calcium Level 9.1, Corrected Calcium 9.7, Magnesium Level 1.8, Total Bilirubin 0.8, Aspartate Amino Transf (AST/SGOT) 10, Alanine Aminotransferase (ALT/SGPT) 7, Alkaline Phosphatase 59, Total Protein 6.5, Albumin 3.3 11/30/21 05:39: Glucometer 108 11/30/21 11:31: Glucometer 146H Microbiology 11/29/21 MRSA Screen - Final, Complete MRSA not isolated 11/28/21 Blood Culture - Preliminary, Resulted No growth Home Meds Active Nystatin 15 Gm Cream..g. 0 Gm TP TID Reported Novolog Flexpen (Insulin Aspart) 300 Units/3 Ml Solution 4 Units SQ AC Levemir Flextouch (Insulin Detemir) 100 Unit/1 Ml Insuln.pen 8 Unit SQ BID Deep Sea (Sodium Chloride) 44 Ml [place] 1 [place] NSEACH QID PRN Acetazolamide 250 Mg Tablet 250 Mg PO BID Albuterol Sulfate 2.5 Mg/3 Ml Vial.neb 3 Ml NEB Q6H PRN Aripiprazole 20 Mg Tablet 20 Mg PO DAILY Jennifer Allergy (Fexofenadine HCl) 180 Mg Tablet 180 Mg PO DAILY Olopatadine HCl 2.5 Ml Drops 1 Drop OU HS Lidocaine 5% Patch (Lidocaine) 1 Each Adh..patch 1 Pat TD DAILY APPLY TO LEFT SHOULDER- REMOVE AFTER 12 HOURS Isosorbide Mononitrate ER (Isosorbide Mononitrate) 60 Mg Tab 60 Mg PO DAILY Pantoprazole Sodium 20 Mg Tablet.dr 20 Mg PO DAILY Furosemide 40 Mg Tablet 40 Mg PO DAILY K-Tab ER (Potassium Chloride) 10 Meq Tablet.er 20 Meq PO BID TAKES 2 (10 MEQ) TABLETS Eliquis (Apixaban) 5 Mg Tablet 5 Mg PO BID Ventolin Hfa (Albuterol Sulfate) 18 Gm Hfa.aer.ad 2 Puff INH QID PRN Levothyroxine Sodium 25 Mcg Tablet 25 Mcg PO DAILY Zafirlukast 20 Mg Tablet 20 Mg PO BID Lamotrigine 25 Mg Tablet 25 Mg PO BID Assessment/Pt Instructions Discharged home on hospice. Contact Bret Covarrubias with any questions or needs. Discharge Planning: >30 minutes discharge planning Discharge Instructions Discharge Diet: No Restrictions Activity as Tolerated: Yes Discharge Physical Examination Vital Signs Vital Signs Date Time Temp Pulse Resp B/P (MAP) Pulse Ox O2 Delivery O2 Flow Rate FiO2 11/30/21 14:15 100 High Flow N/C 5.00 11/30/21 12:00 37.0 97 20 96/54 11/29/21 03:04 60 General Appearance: No Apparent Distress, Chronically ill, Obese Respiratory: No Respiratory Distress, Decreased Breath Sounds Cardiovascular: Regular Rate, Rhythm, No Murmur Gastrointestinal: Normal Bowel Sounds, Soft Extremity: Normal Inspection, Pedal Edema Skin: Normal Color, Warm/Dry Neurologic/Psychiatric: Alert, Oriented x3 Allergies: Coded Allergies: clarithromycin (Verified Allergy, Unknown, 11/18/18) moxifloxacin (Verified Allergy, Unknown, 11/18/18) nitrofurantoin (Verified Allergy, Unknown, 11/18/18) penicillin G (Verified Allergy, Unknown, Pt has received Omnicef & cephalexin in the past, 11/19/18) Pt has received Omnicef & cephalexin in the past (from External med history) sulfacetamide (Verified Allergy, Unknown, 11/18/18) trazodone (Verified Allergy, Unknown, 11/18/18) Discharge Summary Date of Admission Nov 28, 2021 at 23:35 Date of Discharge Discharge Date: Nov 30, 2021 Discharge Time: 16:52 Admission Diagnosis Acute on chronic respiratory failure with hypoxia and hypercapnia Comfort Measures/ End of Life Care: Pallative Care, Hospice Care (Home) Advance Care discuss with: patient, family member (s) Plan: initiate discussion, clarifying prognosis, identified end-of-life goals, developed treatment plan Time spent on discussion (min): 20 Discharge Diagnosis Acute on chronic respiratory failure with hypoxia and hypercapnia Obesity hypoventilation syndrome Morbid obesity Pulmonary hypertension (1) Acute on chronic respiratory failure with hypoxia and hypercapnia Status: Acute (2) Morbid obesity Status: Chronic (3) Obesity hypoventilation syndrome Status: Acute (4) CO2 narcosis Status: Acute (5) Non-compliance Status: Acute (6) Poor prognosis Status: Acute (7) Transition from acute care to hospice Status: Acute JITENDRA GONZALEZ MD Nov 30, 2021 16:59
[2021-12-01] MEDS ORDERED: KCL 20 MEQ TAB (K-DUR) PO SCH (06:00)
[2021-12-01] MEDS ORDERED: MAGNESIUM 1 GM/100 ML IVPB 100 ML IV SCH (06:00)
[2021-12-01] MEDS ORDERED: POTASSIUM CL 10MEQ/50ML IVPB 50 ML IV SCH (06:00)
== END 2021-11-30 18:25 | disposition hospice, home (50) | DRG 189 ==
LOC: EDUNIT# 22:08 → ER 22:09 → ICU 23:35 → 4TH 11-29 16:30
PROVIDERS: ADMIT Internal Medicine; ATTEND Internal Medicine
PROC: 8E0ZXY6 Isolation (ICD-10-PCS; 2021-11-28)
PROC: 5A09357 Assistance with Respiratory Ventilation, Less than 24 Consecutive Hours, Continuous Positive Airway Pressure (ICD-10-PCS; principal; 2021-11-29)
PROC: 5A0945A Assistance with Respiratory Ventilation, 24-96 Consecutive Hours, High Flow/Velocity Cannula (ICD-10-PCS; 2021-11-29)
DX: J96.21 Acute and chronic respiratory failure with hypoxia (principal); I50.31 Acute diastolic (congestive) heart failure; E66.2 Morbid (severe) obesity with alveolar hypoventilation; Z68.41 Body mass index [BMI] 40.0-44.9, adult; I48.20 Chronic atrial fibrillation, unspecified; J96.22 Acute and chronic respiratory failure with hypercapnia; J44.9 Chronic obstructive pulmonary disease, unspecified; F03.90 Unspecified dementia, unspecified severity, without behavioral disturbance, psychotic disturbance, mood disturbance, and anxiety; E11.65 Type 2 diabetes mellitus with hyperglycemia; I11.0 Hypertensive heart disease with heart failure; E78.00 Pure hypercholesterolemia, unspecified; F41.9 Anxiety disorder, unspecified; F31.9 Bipolar disorder, unspecified; E87.8 Other disorders of electrolyte and fluid balance, not elsewhere classified; D64.9 Anemia, unspecified; I27.20 Pulmonary hypertension, unspecified; Z20.822 Contact with and (suspected) exposure to COVID-19; Z91.19 Patient's noncompliance with other medical treatment and regimen; E03.9 Hypothyroidism, unspecified; Z87.891 Personal history of nicotine dependence; Z79.4 Long term (current) use of insulin; Z79.01 Long term (current) use of anticoagulants; Z88.1 Allergy status to other antibiotic agents; Z88.0 Allergy status to penicillin; Z88.2 Allergy status to sulfonamides; Z88.8 Allergy status to other drugs, medicaments and biological substances
CPT/HCPCS: 36415; 51702; 71045; 80053; 80306; 80320; 80329; 81000; 82010; 82140; 82150; 82550; 82553; 82805; 82947; 83605; 83690; 83735; 83874; 83880; 84100; 84145; 84443; 84484; 85025; 85379; 85610; 85652; 85730; 86141; 87040; 87081; 87636; 93005; 93041; 94640; 94660; 94760; 96372; 96374; 96375; 99291

== ENCOUNTER → 2022-01-10 | Outpatient (CLI) | payer MEDICARE, MEDICAID ==
[~2022-01-10] MED LIST changes: +SODI44SP2 NSEACH
[2022-01-10 13:49] LABS: BILIRUBIN,URINE NEGATIVE (NEGATIVE); CLARITY,URINE CLEAR; COLOR,URINE YELLOW; GLUCOSE, URINE (UA) NEGATIVE (NEGATIVE); KETONES,URINE 1+ (NEGATIVE); LEUKOCYTE ESTERASE ,URINE 1+ (NEGATIVE); NITRITE,URINE NEGATIVE (NEGATIVE); PH,URINE 5.5 (5-9); PROTEIN,URINE NEGATIVE (NEGATIVE)
[2022-01-10 13:53] LABS: BACTERIA,URINE NEGATIVE /HPF; SQUAMOUS EPITHELIAL CELL,UR 0-2 /HPF; WBC,URINE 0-2 /HPF
== END ==
LOC: LABNPT 13:35
PROVIDERS: ATTEND Nurse Practitioner
DX: Z01.89 Encounter for other specified special examinations (principal)
CPT/HCPCS: 81000

== ENCOUNTER 2022-02-04 00:35 | Inpatient (IN) | payer MEDICARE, MEDICAID ==
[~2022-02-04] VITALS: Ht 162.5 cm; Wt 109.6 kg
--- NOTE | 2022-02-04 00:50 | ED Respiratory ---
General Stated Complaint: COPD Source: patient Exam Limitations: no limitations History of Present Illness Date Seen by Provider: February 04, 2022 Time Seen by Provider: 00:36 Initial Comments The patient presents ER by EMS from home and arm where her caregiver thought that she was acting a little odd and asked EMS to check around. She was not complaining of being short of air but she was confused and said she saw the girl coming to her room and take her mask off. The mask she is referring to is her CPAP and the patient says she takes it off herself usually during the night and does not like to wear it all the time although she is supposed to wear it at night. She is on 5 L of supplemental oxygen by nasal cannula at baseline. She is with [facility] for COPD. The caregiver called [facility] and they withdrew her hospice benefit so she could come to the ER to be checked out. The patient denies any pain nausea fever chills. She says she is felt like she is had some burning with urination for the past day or 2. Allergies and Home Medications Allergies Coded Allergies: clarithromycin (Verified Allergy, Unknown, 11/18/18) moxifloxacin (Verified Allergy, Unknown, 11/18/18) nitrofurantoin (Verified Allergy, Unknown, 11/18/18) penicillin G (Verified Allergy, Unknown, Pt has received Omnicef & cephale sangeetha in the past, 11/19/18) Pt has received Omnicef & cephalexin in the past (from External med history) sulfacetamide (Verified Allergy, Unknown, 11/18/18) trazodone (Verified Allergy, Unknown, 11/18/18) Patient Home Medication List Home Medication List Reviewed: Yes Acetaminophen (Acetaminophen) 650 Mg Supp.rect, 650 MG RC Q4H PRN for PAIN-MILD (1-4) OR TEMPATURE, (Reported) Entered as Reported by: FRANCIA MARIE on 02/04/221509 Last Action: Reviewed Acetaminophen (Acetaminophen) 500 Mg Tablet, 500-1,000 MG PO Q4H PRN for PAIN-MILD (1-4), (Reported) Entered as Reported by: FRANCIA MARIE on 02/04/221509 Last Action: Reviewed Acetazolamide (Acetazolamide) 250 Mg Tablet, 250 MG PO BID, (Reported) Entered as Reported by: FRANCIA MARIE on 11/29/21 1442 Last Action: Reviewed Albuterol Sulfate (Ventolin Hfa) 18 Gm Hfa.aer.ad, 2 PUFF INH QID PRN for SHORTNESS OF BREATH, (Reported) Entered as Reported by: RICKI MCCORMACK on 11/19/18 1120 Last Action: Reviewed Apixaban (Eliquis) 5 Mg Tablet, 5 MG PO BID, (Reported) Entered as Reported by: ADEN CALDWELL on 11/30/20 1623 Last Action: Reviewed Aripiprazole (Aripiprazole) 20 Mg Tablet, 20 MG PO DAILY, (Reported) Entered as Reported by: FRANCIA MARIE on 11/04/21 1037 Last Action: Reviewed Bisacodyl (Bisacodyl) 10 Mg Supp.rect, 10 MG RC UD PRN for CONSTIPATION-4TH LINE, (Reported) Entered as Reported by: FRANCIA MARIE on 02/04/22 151 Last Action: Reviewed Fexofenadine HCl (Jennifer Allergy) 180 Mg Tablet, 180 MG PO DAILY, (Reported) Entered as Reported by: FRANCIA MARIE on 10/12/21 140 Last Action: Reviewed Fluticasone Propionate (Flonase Allergy Relief) 50 Mcg/Actuation [place].susp, 1-2 SPRAY NSEACH DAILY PRN for ALLERGY SYMPTOMS, (Reported) Entered as Reported by: FRANCIA MARIE on 02/04/221509 Last Action: Reviewed Furosemide (Furosemide) 40 Mg Tablet, 40 MG PO DAILY, (Reported) Entered as Reported by: FRANCIA MARIE on 10/12/21 140 Last Action: Reviewed Hydrocodone/Acetaminophen (Hydrocodone-Acetamin 5-325 mg) 5 Mg-325 Mg Tablet, 1- 2 EA PO Q4H PRN for PAIN-MODERATE (5-7), (Reported) Entered as Reported by: FRANCIA MARIE on 02/04/221509 Last Action: Reviewed Hyoscyamine Sulfate (Hyoscyamine Sulfate) 0.125 Mg Tab.rapdis, 0.125 MG SL Q4H PRN for EXCESS SECRETIONS, (Reported) Entered as Reported by: FRANCIA MARIE on 02/04/22 151 Last Action: Reviewed Insulin Aspart (Novolog Flexpen) 300 Units/3 Ml Solution, 4 UNITS SQ AC, (Reported) Entered as Reported by: FRANCIA MARIE on 11/29/211441 Last Action: Reviewed Insulin Detemir (Levemir Flextouch) 100 Unit/1 Ml Insuln.pen, 8 UNIT SQ BID, (Reported) Entered as Reported by: FRANCIA MARIE on 11/29/211441 Last Action: Reviewed Ipratropium/Albuterol Sulfate (Iprat-Albut 0.5-3(2.5) mg/3 ml) 0.5 Mg-3 Mg (2.5 Mg Base)/3 Ml Ampul.neb, 3 ML NEB Q6H PRN for SHORTNESS OF BREATH, (Reported) Entered as Reported by: FRANCIA MARIE on 02/04/221509 Last Action: Reviewed Isosorbide Mononitrate (Isosorbide Mononitrate ER) 60 Mg Tab, 60 MG PO DAILY, (Reported) Entered as Reported by: FRANCIA MARIE on 10/12/211401 Last Action: Reviewed Lamotrigine (Lamotrigine) 25 Mg Tablet, 25 MG PO BID, (Reported) Entered as Reported by: RICKI CMCORMACK on 11/19/181048 Last Action: Reviewed Levothyroxine Sodium (Levothyroxine Sodium) 25 Mcg Tablet, 25 MCG PO DAILY, (Reported) Entered as Reported by: RICKI MCCORMACK on 11/19/181048 Last Action: Reviewed Lidocaine (Lidocaine 5% Patch) 1 Each Adh..patch, 1 PAT TD DAILY, (Reported) Entered as Reported by: FRANCIA MARIE on 10/12/211401 Last Action: Reviewed Lorazepam (Ativan) 0.5 Mg Tablet, 0.5 MG PO HS PRN for ANXIETY, (Reported) Entered as Reported by: FRANCIA MARIE on 02/04/221509 Last Action: Reviewed Morphine Sulfate (Morphine Conc. 20mg/ml) 100 Mg/5 Ml (20 Mg/Ml) Solution, 0.25- 1 ML SL Q4H PRN for PAIN/SHORTNESS OF AIR, (Reported) Entered as Reported by: FRANCIA MARIE on 02/04/221509 Last Action: Reviewed Nystatin (Nystatin) 100,000 Unit/Gram Cream..g., 1 APPLIC TP TID PRN for YEAST, (Reported) Entered as Reported by: FRANCIA MARIE on 02/04/22 1510 Last Action: Reviewed Olopatadine HCl (Olopatadine HCl) 2.5 Ml Drops, 1 DROP OU HS, (Reported) Entered as Reported by: FRANCIA MARIE on 10/12/21 140 Last Action: Reviewed Ondansetron (Ondansetron Odt) 4 Mg Tab.rapdis, 4 MG SL Q4H PRN for NAUSEA/VOMITING-1ST LINE, (Reported) Entered as Reported by: FRANCIA MARIE on 02/04/22 151 Last Action: Reviewed Pantoprazole Sodium (Pantoprazole Sodium) 20 Mg Tablet.dr, 20 MG PO DAILY, (Reported) Entered as Reported by: FRANCIA MARIE on 10/12/21 140 Last Action: Reviewed Potassium Chloride (K-Tab ER) 10 Meq Tablet.er, 20 MEQ PO BID, (Reported) Entered as Reported by: ADEN CALDWELL on 11/30/20 1623 Last Action: Reviewed Quetiapine Fumarate (Quetiapine Fumarate) 50 Mg Tablet, 50-100 MG PO Q6H PRN for AGITATION/TERMINAL RESTLESSNES, (Reported) Entered as Reported by: FRANCIA MARIE on 02/04/22 151 Last Action: Reviewed Sodium Chloride (Deep Sea) 44 Ml [place], 1 SPRAY NSEACH QID PRN for DRY NOSE, (Reported) Entered as Reported by: FRANCIA MARIE on 11/29/21 1442 Last Action: Reviewed Zafirlukast (Zafirlukast) 20 Mg Tablet, 20 MG PO BID, (Reported) Entered as Reported by: RICKI MCCORMACK on 11/19/18 1049 Last Action: Reviewed Discontinued Medications Albuterol Sulfate (Albuterol Sulfate) 2.5 Mg/3 Ml Vial.neb, 3 ML NEB Q6H PRN for SHORTNESS OF BREATH, (Reported) Discontinued Reason: No Longer Taking Entered as Reported by: FRANCIA MARIE on 11/04/21 1151 Last Action: Discontinued Nystatin (Nystatin) 15 Gm Cream..g., 0 GM TP TID Discontinued Reason: Duplicate Order Prescribed by: LISA ACHARYA on 11/09/21 1052 Last Action: Discontinued Review of Systems Review of Systems Constitutional: No chills, No diaphoresis EENTM: No ear discharge, No ear pain Respiratory: No cough, No short of breath Cardiovascular: No chest pain, No edema Gastrointestinal: No abdominal pain, No constipation, No nausea, No vomiting Genitourinary: see HPI; No discharge; dysuria Musculoskeletal: No back pain, No joint pain All Other Systems Reviewed Negative Unless Noted: Yes Past [place]i-Nffscm-Ptjpif Hx Patient Social History Tobacco Use?: No Use of E-Cig and/or Vaping dev: No Immunizations Up To Date First/Initial COVID19 Vaccinat: 2020 Second COVID19 Vaccination Luis: 2020 Third COVID19 Vaccination Date: 2020 Past Medical History Surgery/Hospitalization HX: DM, COPD, AFIB, CHF, RESP FAILURE Surgeries: Yes (HERNIA REPAIR) Abdominal, Section, Gallbladder, Hysterectomy, Tonsillectomy Respiratory: Yes (RESPIRATORY FAILURE;OBESITY HYPOVENTILATION;O2 AT 5L/NC CONTINUOUSLY) Sleep Apnea, COPD Currently Using CPAP: No Currently Using BIPAP: Yes (uses at night) Cardiac: Yes (CHF) Atrial Fibrillation, Chronic Edema/Swelling, High Cholesterol, Hypertension Neurological: Yes Dementia 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 SOCIAL HISTORY: -SMOKED 2 PPD, QUIT > 10 YEARS AGO -ETOH-DENIES USE -DRUGS-DENIES USE Physical Exam Vital Signs - First Documented 02/04/22 00:38 Temp 37.0 Pulse 73 Resp 24 B/P (MAP) 126/73 (90) Pulse Ox 98 O2 Delivery Nasal Cannula O2 Flow Rate 5.00 Capillary Refill : Height: 5'4.00" Weight: 256lbs. 1.0oz. [id number]; 43.11 BMI Method: General Appearance: WD/WN, no apparent distress Eyes: Bilateral Eye Normal Inspection, Bilateral Eye PERRL, Bilateral Eye EOMI HEENT: PERRL/EOMI, normal ENT inspection, TMs normal, pharynx normal Neck: full range of motion, supple, normal inspection Respiratory: lungs clear, no respiratory distress (On her baseline 5 L by nasal cannula satting 95 to 97% with nonlabored breathing, no tripoding or pursed lip breathing.), no accessory muscle use, decreased breath sounds Cardiovascular: normal peripheral pulses, regular rate, rhythm Extremities: normal inspection, normal capillary refill Neurologic/Psychiatric: alert, normal mood/affect, oriented x 3 Skin: normal color, warm/dry Procedures/Interventions Date of ETT Placement: Nov 18, 2018 Time of ETT Placement: 1843 Progress/Results/Core Measures Suspected Sepsis SIRS Temperature: Pulse: Respiratory Rate: Laboratory Tests 02/04/22 00:40: White Blood Count 5.8 Blood Pressure / Mean: Laboratory Tests 02/04/22 00:40: Creatinine 0.73, Platelet Count 207, Total Bilirubin 0.9 Results/Orders Lab Results Laboratory Tests Test 02/04/22 00:40 02/04/22 00:45 02/04/22 00:48 Range/Units White Blood Count 5.8 4.3-11.0 10^3/uL Red Blood Count 3.75 L 3.80-5.11 10^6/uL Hemoglobin 9.5 L 11.5-16.0 g/dL Hematocrit 35 35-52 % Mean Corpuscular Volume 93 80-99 fL Mean Corpuscular Hemoglobin 25 25-34 pg Mean Corpuscular Hemoglobin Concent 27 L 32-36 g/dL Red Cell Distribution Width 16.5 H 10.0-14.5 % Platelet Count 207 130-400 10^3/uL Mean Platelet Volume 9.7 9.0-12.2 fL Immature Granulocyte % (Auto) 0 % Neutrophils (%) (Auto) 70 42-75 % Lymphocytes (%) (Auto) 18 12-44 % Monocytes (%) (Auto) 8 0-12 % Eosinophils (%) (Auto) 4 0-10 % Basophils (%) (Auto) 1 0-10 % Neutrophils # (Auto) 4.0 1.8-7.8 10^3/uL Lymphocytes # (Auto) 1.0 1.0-4.0 10^3/uL Monocytes # (Auto) 0.5 0.0-1.0 10^3/uL Eosinophils # (Auto) 0.2 0.0-0.3 10^3/uL Basophils # (Auto) 0.1 0.0-0.1 10^3/uL Immature Granulocyte # (Auto) 0.0 0.0-0.1 10^3/uL Sodium Level 142 135-145 MMOL/L Potassium Level 3.1 L 3.6-5.0 MMOL/L Chloride Level 85 L 98-107 MMOL/L Carbon Dioxide Level 44 H 21-32 MMOL/L Anion Gap 13 5-14 MMOL/L Blood Urea Nitrogen 8 7-18 MG/DL Creatinine 0.73 0.60-1.30 MG/DL Estimat Glomerular Filtration Rate 89 BUN/Creatinine Ratio 11 Glucose Level 136 H 70-105 MG/DL Calcium Level 9.1 8.5-10.1 MG/DL Corrected Calcium 9.4 8.5-10.1 MG/DL Total Bilirubin 0.9 0.1-1.0 MG/DL Aspartate Amino Transf (AST/SGOT) 10 5-34 U/L Alanine Aminotransferase (ALT/SGPT) 9 0-55 U/L Alkaline Phosphatase 61 40-136 U/L C-Reactive Protein High Sensitivity 1.15 H 0.00-0.50 MG/DL B-Type Natriuretic Peptide 78.9 <100.0 PG/ML Total Protein 7.9 6.4-8.2 GM/DL Albumin 3.6 3.2-4.5 GM/DL Blood Gas Puncture Site LEFT WRIST Blood Gas Patient Temperature 37 Arterial Blood pH 7.30 *L 7.37-7.43 Arterial Blood Partial Pressure CO2 106 *H 35-45 MMHG Arterial Blood Partial Pressure O2 119 H 79-93 MMHG Arterial Blood HCO3 51 *H 23-27 MMOL/L Arterial Blood Total CO2 54.3 *H 21.0-31.0 MMOL/L Arterial Blood Oxygen Saturation 98 94-100 % Arterial Blood Base Excess 23.5 H -2.5-2.5 MMOL/L Zach Test POSITIVE Blood Gas Ventilator Setting NO Blood Gas Inspired Oxygen 5 Urine Color YELLOW Urine Clarity CLEAR Urine pH 7.0 5-9 Urine Specific [place] <=1.005 1.016-1.022 Urine Protein NEGATIVE NEGATIVE Urine Glucose (UA) NEGATIVE NEGATIVE Urine Ketones NEGATIVE NEGATIVE Urine Nitrite NEGATIVE NEGATIVE Urine Bilirubin NEGATIVE NEGATIVE Urine Urobilinogen 1.0 < = 1.0 MG/DL Urine Leukocyte Esterase NEGATIVE NEGATIVE Urine RBC (Auto) NEGATIVE NEGATIVE Urine RBC NONE /HPF Urine WBC NONE /HPF Urine Squamous Epithelial Cells NONE /HPF Urine Crystals NONE /LPF Urine Bacteria NEGATIVE /HPF Urine Casts NONE /LPF Urine Mucus NEGATIVE /LPF Urine Culture Indicated NO My Orders Orders - REAGAN ARBOLEDA Ed Iv/Invasive Line Start (02/04/22 00:43) Cbc With Automated Diff (02/04/22 00:43) Comprehensive Metabolic Panel (02/04/22 00:43) Hs C Reactive Protein (02/04/22 00:43) Bnp [place] (02/04/22 00:43) Ua Culture If Indicated (02/04/22 00:43) Straight Cath For Spec.-Adult (02/04/22 00:43) Arterial Blood Gas (02/04/22 00:43) Chest 1 View, Ap/Pa Only (02/04/22 00:43) Vital Signs/I&O 02/04/22 02/04/22 00:38 01:00 Temp 37.0 Pulse 73 Resp 24 B/P (MAP) 126/73 (90) Pulse Ox 98 O2 Delivery Nasal Cannula Nasal Cannula O2 Flow Rate 5.00 5.00 Capillary Refill : Progress Note : Time: 00:49 Progress Note Patient is mentating okay at the moment. She may be having some delirium with waxing and waning. Her respiratory status seems okay clinically. We will get an ABG to check her CO2 levels. We will keep her on her baseline O2 by nasal cannula. We will plan to get a straight cath urine specimen since she is complaining of dysuria which is a more likely candidate for delirium presentation. Diagnostic Imaging Diagonstic Imaging: Xray Plain Films/CT/US/NM/MRI: chest Comments Stable 1 view x-ray. [facility], [place] NAME: NERY CALDERÓN [facility] REC#: [id number] PT STATUS: ADM IN : 1950 PHYSICIAN: REAGAN ARBOLEDA MD ADMIT DATE: 02/04/22/ICU Signed Date of Exam:02/04/22 CHEST 1 VIEW, AP/PA ONLY EXAM: CHEST 1 VIEW, AP/PA ONLY INDICATION: Shortness of breath. COMPARISON: 11/29/2021. FINDINGS: Cardiomegaly with pulmonary vascular congestion and diffuse interstitial opacities. Probable left pleural effusion. No pneumothorax. No acute osseous findings. IMPRESSION: Cardiomegaly with pulmonary vascular congestion and interstitial edema similar to the prior. Probable left pleural effusion. Dictated by: Dictated on workstation # [id number] Dict: 02/04/2222 Trans: 02/04/22 1022 [facility] [id number] Interpreted by: SANTANA NUNEZ MD Electronically signed by: SANTANA NUNEZ MD 02/04/22 1022 Reviewed: Reviewed by Me Departure Communication (Admissions) Time/Spoke to Admitting Phy: 01:15 Discussed the case with Dr. Borges who agrees with ICU placement, BiPAP and steroids Time/Spoke to Consulting Phy: 01:35 Discussed case with eICU. Impression Primary Impression: Acute on chronic respiratory failure with hypoxia and hypercapnia Disposition: ADMITTED INPATIENT Condition: Stable Admissions Decision to Admit Reason: Admit from ER (General) Decision to Admit/Date: February 04, 2022 Time/Decision to Admit Time: 01:10 Departure-Patient Inst. Referrals: SIMA COOK MD (PCP/Family) Primary Care Physician REAGAN ARBOLEDA February 04, 2022 00:50
[2022-02-04 00:52] LABS: BASOPHILS # (AUTO) 0.1 10^3/uL (0.0-0.1); BASOPHILS % (AUTO) 1 % (0-10); EOSINOPHILS # (AUTO) 0.2 10^3/uL (0.0-0.3); EOSINOPHILS % (AUTO) 4 % (0-10); HEMATOCRIT 35 % (35-52); HEMOGLOBIN 9.5 g/dL (11.5-16.0); LYMPHOCYTES % (AUTO) 18 % (12-44); MEAN CORPUSCULAR HEMOGLOBIN 25 pg (25-34); MEAN CORPUSCULAR HGB CONC 27 g/dL (32-36); MEAN CORPUSCULAR VOLUME 93 fL (80-99); MEAN PLATELET VOLUME 9.7 fL (9.0-12.2); MONOCYTES # (AUTO) 0.5 10^3/uL (0.0-1.0); MONOCYTES % (AUTO) 8 % (0-12); NEUTROPHILS % (AUTO) 70 % (42-75); PLATELET COUNT 207 10^3/uL (130-400); WHITE BLOOD COUNT 5.8 10^3/uL (4.3-11.0)
[2022-02-04 00:55] LABS: ABG BASE EXCESS 23.5 MMOL/L (-2.5-2.5); ABG OXYGEN SATURATION 98 % (94-100); ABG PO2 119 MMHG (79-93)
[2022-02-04 00:56] LABS: BILIRUBIN,URINE NEGATIVE (NEGATIVE); CLARITY,URINE CLEAR; COLOR,URINE YELLOW; GLUCOSE, URINE (UA) NEGATIVE (NEGATIVE); KETONES,URINE NEGATIVE (NEGATIVE); LEUKOCYTE ESTERASE ,URINE NEGATIVE (NEGATIVE); NITRITE,URINE NEGATIVE (NEGATIVE); PROTEIN,URINE NEGATIVE (NEGATIVE)
[2022-02-04 00:58] LABS: ALBUMIN 3.6 GM/DL (3.2-4.5)
[2022-02-04 00:58] LABS: ALLENS TEST POSITIVE; INSPIRED O2 5; PATIENT TEMP 37; VENTILATOR NO
[2022-02-04 00:59] LABS: POTASSIUM 3.1 MMOL/L (3.6-5.0)
[2022-02-04 00:59] LABS: ABG PCO2 106 MMHG (35-45)
[2022-02-04 01:00] LABS: CALCIUM 9.1 MG/DL (8.5-10.1)
[2022-02-04 01:00] LABS: ABG TCO2 54.3 MMOL/L (21.0-31.0)
[2022-02-04 01:01] LABS: TOTAL PROTEIN 7.9 GM/DL (6.4-8.2)
[2022-02-04 01:03] LABS: BACTERIA,URINE NEGATIVE /HPF
[2022-02-04 01:03] LABS: BILIRUBIN,TOTAL 0.9 MG/DL (0.1-1.0)
[2022-02-04 01:05] LABS: CREATININE SERUM 0.73 MG/DL (0.60-1.30)
[2022-02-04] MEDS ORDERED: methylPREDNISolone 125 MG (Solu-MEDROL) VIAL IVP ONE (01:15)
[2022-02-04] MEDS ORDERED: ACETAMINOPHEN 325 MG TABLET PO PRN (02:15)
[2022-02-04] MEDS ORDERED: ONDANSETRON 4 MG/2 ML (SDV) Z0FRAN IV PRN (02:15)
[2022-02-04 02:21] VITALS: BP 128/63
[2022-02-04] MEDS ORDERED: NS IV 1000 ML 1,000 ML ONE (02:23)
--- NOTE | 2022-02-04 02:26 | Tele-ICU Consult ---
History of Present Illness History of Present Illness Date Seen by Provider: February 04, 2022 Time Seen by Provider: 02:24 Date of Admission 02/04/22 History of Present Illness 71-year-old female with history of morbid obesity, obesity hypoventilation syndrome with chronic retention of CO2 who is supposed to be on oxygen 5 L nasal cannula and BiPAP at nighttime at home. Apparently she is not using BiPAP at home and today she is found to be confused and disoriented by her caregiver. She has been under the care of hospice but today it was rescinded and is sent to the emergency room. Arterial blood gas revealed CO2 retention slightly higher than her baseline. Her baseline is CO2 is in the mid 90s. Hence she is being admitted to the intensive care unit and started on a BiPAP ventilation. Allergies and Home Medications Allergies Coded Allergies: clarithromycin (Verified Allergy, Unknown, 11/18/18) moxifloxacin (Verified Allergy, Unknown, 11/18/18) nitrofurantoin (Verified Allergy, Unknown, 11/18/18) penicillin G (Verified Allergy, Unknown, Pt has received Omnicef & cephalexin in the past, 11/19/18) Pt has received Omnicef & cephalexin in the past (from External med history) sulfacetamide (Verified Allergy, Unknown, 11/18/18) trazodone (Verified Allergy, Unknown, 11/18/18) Home Medications Acetazolamide 250 Mg Tablet, 250 MG PO BID, (Reported) Albuterol Sulfate 18 Gm Hfa.aer.ad, 2 PUFF INH QID PRN for SHORTNESS OF BREATH, (Reported) Albuterol Sulfate 2.5 Mg/3 Ml Vial.neb, 3 ML NEB Q6H PRN for SHORTNESS OF BREATH, (Reported) Apixaban 5 Mg Tablet, 5 MG PO BID, (Reported) Aripiprazole 20 Mg Tablet, 20 MG PO DAILY, (Reported) Fexofenadine HCl 180 Mg Tablet, 180 MG PO DAILY, (Reported) Furosemide 40 Mg Tablet, 40 MG PO DAILY, (Reported) Insulin Aspart 300 Units/3 Ml Solution, 4 UNITS SQ AC, (Reported) Insulin Detemir 100 Unit/1 Ml Insuln.pen, 8 UNIT SQ BID, (Reported) Isosorbide Mononitrate 60 Mg Tab, 60 MG PO DAILY, (Reported) Lamotrigine 25 Mg Tablet, 25 MG PO BID, (Reported) Levothyroxine Sodium 25 Mcg Tablet, 25 MCG PO DAILY, (Reported) Lidocaine 1 Each Adh..patch, 1 PAT TD DAILY, (Reported) APPLY TO LEFT SHOULDER- REMOVE AFTER 12 HOURS Nystatin 15 Gm Cream..g., 0 GM TP TID Prescribed by: LISA ACHARYA on 11/09/21 1052 Olopatadine HCl 2.5 Ml Drops, 1 DROP OU HS, (Reported) Pantoprazole Sodium 20 Mg Tablet.dr, 20 MG PO DAILY, (Reported) Potassium Chloride 10 Meq Tablet.er, 20 MEQ PO BID, (Reported) TAKES 2 (10 MEQ) TABLETS Sodium Chloride 44 Ml [place], 1 SPRAY NSEACH QID PRN for DRY NOSE, (Reported) Zafirlukast 20 Mg Tablet, 20 MG PO BID, (Reported) Past Medical/Social/Family Hx Patient Social History Tobacco Use?: No Use of E-Cig and/or Vaping dev: No Substance use?: No Alcohol Use?: No Immunizations Up To Date Influenza Vaccine Up-to-Date: No; Not Current First/Initial COVID19 Vaccinat: 2020 Second COVID19 Vaccination Luis: Ronnie - 2020 Tetanus Booster (TDap): Unknown Current Status Primary Language: Maltese Preferred Spoken Language: Maltese Family Medical History Family Hx: LONG HISTORY OF NON-COMPLIANCE IN ALL ASPECTS OF CARE. SOCIAL HISTORY: -SMOKED 2 PPD, QUIT > 10 YEARS AGO -ETOH-DENIES USE -DRUGS-DENIES USE Review of Systems Constitutional: see HPI Other ros per rn Focused Exam Height, Weight, BMI Height: 5'4.00" Weight: 256lbs. 1.0oz. [id number]; 43.00 BMI Method: Exam Exam Patient acknowledged, consented, and participated in this virtual visit which was conducted using real time audio/video Vital Signs Date Time Temp Pulse Resp B/P (MAP) Pulse Ox O2 Delivery O2 Flow Rate FiO2 02/04/22 01:00 Nasal Cannula 5.00 02/04/22 00:38 37.0 73 24 126/73 (90) 98 Nasal Cannula 5.00 Height & Weight Height: 5'4.00" Weight: 256lbs. 1.0oz. [id number]; 43.00 BMI Method: General Appearance: Obese Capillary Refill: Less Than 3 Seconds Other comments PE PER RN Results Lab Laboratory Tests 02/04/22 00:40 Assessment/Plan Assessment/Plan 1. Acute and chronic hypercarbic and hypoxic respiratory failure due to noncompliance with BiPAP ventilation. 2. Morbid obesity 3. Chronic congestive heart failure with a preserved ejection fraction. 4. Type 2 diabetes mellitus. Recommendations 1. Start on a BiPAP ventilation 2. We will repeat blood gases in a.m. 3. Bronchodilator therapy as needed 4. Hypertension and diabetes management per primary care care physician 5. DVT prophylaxis with apixaban 6. correct hypokalemia. Critical Care: Critically Ill Patient Time spent with patient (mins): 35 TIBURCIO TURNER MD February 04, 2022 02:25
[2022-02-04] MEDS ORDERED: KCL 20 MEQ TAB (K-DUR) PO ONE (02:30)
[2022-02-04] MEDS: NS IV 1000 ML 1,000 ML IV SCH (02:39)
[2022-02-04 03:15] VITALS: BP 126/73
[2022-02-04] MEDS ORDERED: RT-ALBUTEROL/IPRATROPIUM 3 ML (DUONEB) VIAL INH PRN (03:30)
[2022-02-04] MEDS: methylPREDNISolone 125 MG (Solu-MEDROL) VIAL IV SCH ×3 (05:59→19:51)
[2022-02-04 06:16] LABS: BASOPHILS % (AUTO) 1 % (0-10); EOSINOPHILS % (AUTO) 0 % (0-10); HEMATOCRIT 37 % (35-52); LYMPHOCYTES # (AUTO) 0.6 10^3/uL (1.0-4.0); LYMPHOCYTES % (AUTO) 11 % (12-44); MEAN CORPUSCULAR HEMOGLOBIN 25 pg (25-34); MEAN CORPUSCULAR HGB CONC 27 g/dL (32-36); MEAN CORPUSCULAR VOLUME 92 fL (80-99); MEAN PLATELET VOLUME 9.6 fL (9.0-12.2); MONOCYTES # (AUTO) 0.1 10^3/uL (0.0-1.0); MONOCYTES % (AUTO) 2 % (0-12); NEUTROPHILS # (AUTO) 4.5 10^3/uL (1.8-7.8); NEUTROPHILS % (AUTO) 86 % (42-75); PLATELET COUNT 182 10^3/uL (130-400); WHITE BLOOD COUNT 5.2 10^3/uL (4.3-11.0)
[2022-02-04 06:39] LABS: ALBUMIN 3.6 GM/DL (3.2-4.5); POTASSIUM 3.7 MMOL/L (3.6-5.0)
[2022-02-04 06:40] LABS: CALCIUM 9.3 MG/DL (8.5-10.1)
[2022-02-04 06:41] LABS: TOTAL PROTEIN 7.8 GM/DL (6.4-8.2)
[2022-02-04] MEDS: KCL 20 MEQ TAB (K-DUR) PO SCH (06:42)
[2022-02-04] MEDS: POTASSIUM CL 10MEQ/50ML IVPB 50 ML IV SCH (06:42)
[2022-02-04 06:43] LABS: BILIRUBIN,TOTAL 0.9 MG/DL (0.1-1.0)
[2022-02-04] MEDS: inSUlin ASPART (NovoLOG) 1 UNIT/0.01 ML (CHARGE PER UNIT) SC SCH ×4 (06:43→20:51)
[2022-02-04 06:45] LABS: CREATININE SERUM 0.7 MG/DL (0.60-1.30); PHOSPHORUS 3.1 MG/DL (2.3-4.7)
[2022-02-04 06:48] LABS: MAGNESIUM 1.9 MG/DL (1.6-2.4)
[2022-02-04 06:51] LABS: ANISOCYTOSIS SLIGHT; HYPOCHROMASIA SLIGHT; LYMPHOCYTES % (MANUAL) 5 %; MONOCYTES % (MANUAL) 5 %; NEUTROPHILS % (MANUAL) 90 %
[2022-02-04] MEDS: MAGNESIUM 1 GM/100 ML IVPB 100 ML IV SCH (06:59)
[2022-02-04 07:04] VITALS: BP 103/56
[2022-02-04] MEDS: RT-ALBUTEROL/IPRATROPIUM 3 ML (DUONEB) VIAL INH SCH ×5 (07:04→21:49)
--- NOTE | 2022-02-04 07:26 | Diagnostic Imaging Report ---
EXAM: CHEST 1 VIEW, AP/PA ONLY INDICATION: Shortness of breath. COMPARISON: 11/29/2021. FINDINGS: Cardiomegaly with pulmonary vascular congestion and diffuse interstitial opacities. Probable left pleural effusion. No pneumothorax. No acute osseous findings. IMPRESSION: Cardiomegaly with pulmonary vascular congestion and interstitial edema similar to the prior. Probable left pleural effusion. Dictated by: Dictated on workstation # [id number]
[2022-02-04 08:35] LABS: ABG BASE EXCESS 18.3 MMOL/L (-2.5-2.5); ABG OXYGEN SATURATION 93 % (94-100); ABG PH 7.37 (7.37-7.43); ABG PO2 64 MMHG (79-93)
[2022-02-04 08:39] LABS: ALLENS TEST YES-POS; INSPIRED O2 40%; VENTILATOR YES
[2022-02-04 08:40] LABS: ABG PCO2 78 MMHG (35-45); ABG TCO2 47.3 MMOL/L (21.0-31.0)
--- NOTE | 2022-02-04 09:44 | History & Physical-Hospitalist ---
History of Present Illness HPI/Chief Complaint Patient is a 71-year-old female with past medical history of end-stage COPD who presented to the emergency department due to altered mental status. She was on hospice with [facility] until yesterday. Caregiver noticed that she was confused and brought her to the emergency department for evaluation. She is unable to tell me most of her history but does state that she is supposed to be wearing BiPAP and takes it off at night because "she does not pay attention to it." She was found to be in hypercapnic respiratory failure and placed on BiPAP and admitted to the ICU given she had revoked hospice. She did remain a DNR. This morning she reports she is feeling better and she is unsure if she wants to return to hospice. She states "I just want 1 person to call." Source: patient Date Seen 02/04/22 Time Seen by a Provider: 07:45 Attending Physician Sampson Borges MD PCP Efren Truong MD Referring Physician Date of Admission February 04, 2022 at 01:00 Home Medications & Allergies Home Medications Reviewed patient Home Medication Reconciliation performed by pharmacy medication reconciliations machines technician and/or nursing. Patients Allergies have been reviewed. Allergies Allergies Coded Allergies clarithromycin (Verified Allergy, Unknown, 11/18/18) moxifloxacin (Verified Allergy, Unknown, 11/18/18) nitrofurantoin (Verified Allergy, Unknown, 11/18/18) penicillin G (Verified Allergy, Unknown, Pt has received Omnicef & cephalexin in the past, 11/19/18) Pt has received Omnicef & cephalexin in the past (from External med history) sulfacetamide (Verified Allergy, Unknown, 11/18/18) trazodone (Verified Allergy, Unknown, 11/18/18) Past [id number] Hx Patient Social History Tobacco Use?: No Use of E-Cig and/or Vaping dev: No Substance use?: No Alcohol Use?: No Immunizations Up To Date First/Initial COVID19 Vaccinat: 2020 Second COVID19 Vaccination Luis: Faizan and Faizan - 2020 Tetanus Booster (TDap): Unknown Current Status Primary Language: Turkmen Preferred Spoken Language: Turkmen Past Medical History Surgeries: Abdominal, Section, Gallbladder, Hysterectomy, Tonsillectomy Sleep Apnea, COPD Currently Using CPAP: No Currently Using BIPAP: Yes (uses at night) Atrial Fibrillation, Chronic Edema/Swelling, High Cholesterol, Hypertension Dementia 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 SOCIAL HISTORY: -SMOKED 2 PPD, QUIT > 10 YEARS AGO -ETOH-DENIES USE -DRUGS-DENIES USE Review of Systems ROS-Unable to Obtain: limited by bipap Constitutional: see HPI; No chills, No fever Physical Exam Physical Exam Vital Signs Vital Signs - First Documented 02/04/22 02/04/22 00:38 02:00 Temp 37.0 Pulse 73 Resp 24 B/P (MAP) 126/73 (90) Pulse Ox 98 O2 Delivery Nasal Cannula O2 Flow Rate 5.00 FiO2 40 Capillary Refill : Less Than 3 Seconds Height, Weight, BMI Height: 5'4.00" Weight: 256lbs. 1.0oz. [id number]; 41.46 BMI Method: General Appearance: No Apparent Distress, Chronically ill, Obese HEENT: PERRL/EOMI, Moist Mucous Membranes; No Scleral Icterus (L), No Scleral Icterus (R) Neck: Normal Inspection, Supple Respiratory: No Accessory Muscle Use, Decreased Breath Sounds; No Wheezing; Other (on bipap) Cardiovascular: Regular Rate, Rhythm, No JVD, No Murmur Gastrointestinal: Normal Bowel Sounds, Non Tender, Soft Extremity: Normal Capillary Refill, Pedal Edema, Swelling Neurologic/Psychiatric: Alert, Oriented x3, Normal Mood/Affect Skin: Normal Color, Warm/Dry Results Results/Procedures Labs Laboratory Tests 02/04/22 00:40 02/04/22 06:00 02/05/22 05:06 Patient resulted labs reviewed. Imaging: Reviewed Imaging Report Assessment/Plan Admission Diagnosis Acute hypercapnic respiratory failure Admission Status: Inpatient Order (span 2 midnights) Reason for Inpatient Admission: see below Assessment and Plan Acute hypercapnic respiratory failure Obestiy hypoventilation syndrome Diagnosis/Problems Diagnosis/Problems (1) Acute on chronic respiratory failure with hypoxia and hypercapnia Status: Acute (2) Transition from acute care to hospice Status: Acute (3) Poor prognosis Status: Acute (4) Morbid obesity Status: Chronic (5) Chronic atrial fibrillation Status: Acute (6) CHF (congestive heart failure) Status: Acute (7) CO2 narcosis Status: Acute (8) Obesity hypoventilation syndrome Status: Acute (9) Chronic anemia Status: Acute (10) Non-compliance Status: Acute (11) COPD (chronic obstructive pulmonary disease) Status: Acute (12) HTN (hypertension) Status: Acute (13) Hyperglycemia due to type 2 diabetes mellitus Status: Acute (14) Hypothyroidism (15) Atrial fibrillation Status: Acute REBECCA FERNANDEZ MD February 04, 2022 09:44
[2022-02-04] MEDS: APIXABAN 5 MG (ELIQUIS) TABLET PO SCH ×2 (09:48→19:51)
[2022-02-04] MEDS: lamoTRIgine 25 MG (LaMICtal) TAB PO SCH ×2 (09:48→19:51)
[2022-02-04] MEDS ORDERED: ONDA4TAB11 SL (15:10)
[2022-02-04] MEDS ORDERED: NYST15CR TP (15:10)
[2022-02-04] MEDS ORDERED: IPRA3AMP31 NEB (15:10)
[2022-02-04] MEDS ORDERED: BISA10SU8 RC (15:10)
[2022-02-04] MEDS ORDERED: ACET650S15 RC (15:10)
[2022-02-04] MEDS ORDERED: FLUT9.9S NSEACH (15:10)
[2022-02-04] MEDS ORDERED: ACHD5005 PO (15:10)
[2022-02-04] MEDS ORDERED: ACET-93 PO (15:10)
[2022-02-04] MEDS ORDERED: QUET50TA23 PO (15:10)
[2022-02-04] MEDS ORDERED: LORA-404 PO (15:10)
[2022-02-04] MEDS ORDERED: HYOS-6 SL (15:10)
[2022-02-04] MEDS ORDERED: MORP100S7 SL (15:10)
[2022-02-05] MEDS: methylPREDNISolone 125 MG (Solu-MEDROL) VIAL IV SCH ×3 (00:14→11:39)
[2022-02-05] MEDS: RT-ALBUTEROL/IPRATROPIUM 3 ML (DUONEB) VIAL INH SCH ×3 (01:57→10:32)
[2022-02-05] MEDS: NS IV 1000 ML 1,000 ML IV SCH (04:16)
[2022-02-05 06:03] LABS: BASOPHILS % (AUTO) 0 % (0-10); EOSINOPHILS % (AUTO) 0 % (0-10); HEMATOCRIT 32 % (35-52); HEMOGLOBIN 9.1 g/dL (11.5-16.0); LYMPHOCYTES # (AUTO) 0.2 10^3/uL (1.0-4.0); LYMPHOCYTES % (AUTO) 3 % (12-44); MEAN CORPUSCULAR HEMOGLOBIN 25 pg (25-34); MEAN CORPUSCULAR HGB CONC 28 g/dL (32-36); MEAN CORPUSCULAR VOLUME 88 fL (80-99); MEAN PLATELET VOLUME 10.1 fL (9.0-12.2); MONOCYTES # (AUTO) 0.1 10^3/uL (0.0-1.0); MONOCYTES % (AUTO) 1 % (0-12); NEUTROPHILS # (AUTO) 6.1 10^3/uL (1.8-7.8); NEUTROPHILS % (AUTO) 96 % (42-75); PLATELET COUNT 199 10^3/uL (130-400); WHITE BLOOD COUNT 6.4 10^3/uL (4.3-11.0)
[2022-02-05 06:13] LABS: ALBUMIN 3.6 GM/DL (3.2-4.5); POTASSIUM 3.1 MMOL/L (3.6-5.0)
[2022-02-05 06:14] LABS: CALCIUM 9.3 MG/DL (8.5-10.1)
[2022-02-05 06:16] LABS: TOTAL PROTEIN 7.6 GM/DL (6.4-8.2)
[2022-02-05 06:17] LABS: BILIRUBIN,TOTAL 0.7 MG/DL (0.1-1.0)
[2022-02-05 06:19] LABS: CREATININE SERUM 0.79 MG/DL (0.60-1.30); PHOSPHORUS 2.8 MG/DL (2.3-4.7)
[2022-02-05] MEDS: MAGNESIUM 1 GM/100 ML IVPB 100 ML IV SCH (06:23)
[2022-02-05] MEDS: KCL 20 MEQ TAB (K-DUR) PO SCH (06:23)
[2022-02-05] MEDS: POTASSIUM CL 10MEQ/50ML IVPB 50 ML IV SCH (06:23)
[2022-02-05] MEDS ORDERED: KCL 20 MEQ TAB (K-DUR) PO ONE ×2 (06:30→08:30)
[2022-02-05] MEDS: inSUlin ASPART (NovoLOG) 1 UNIT/0.01 ML (CHARGE PER UNIT) SC SCH ×2 (06:32→11:39)
[2022-02-05] MEDS: lamoTRIgine 25 MG (LaMICtal) TAB PO SCH (08:45)
[2022-02-05] MEDS: APIXABAN 5 MG (ELIQUIS) TABLET PO SCH (08:45)
[2022-02-05] MEDS ORDERED: PRED10TA22 PO (09:03)
--- NOTE | 2022-02-05 09:05 | Discharge Inst-Simple/Standard ---
Discharge Inst-Standard Patient Instructions/Follow Up Plan of Care/Instructions/FU: Please continue to take your medications as written. Please follow up with your primary care doctor to follow up this hospital stay. Activity as Tolerated: Yes Discharge Diet: No Restrictions Return to The Hospital For: Worsening shortness of breath or pain uncontrolled with hospice agency help or if you feel you are getting worse. REBECCA FERNANDEZ MD February 05, 2022 09:05
--- NOTE | 2022-02-05 09:07 | Discharge Summary ---
Diagnosis/Chief Complaint Date of Admission February 04, 2022 at 01:00 Date of Discharge Discharge Date: February 05, 2022 Admission Diagnosis Acute hypercapnic respiratory failure Primary Care Efren Truong MD Discharge Summary Discharge Physical Exam Allergies: Coded Allergies: clarithromycin (Verified Allergy, Unknown, 11/18/18) moxifloxacin (Verified Allergy, Unknown, 11/18/18) nitrofurantoin (Verified Allergy, Unknown, 11/18/18) penicillin G (Verified Allergy, Unknown, Pt has received Omnicef & cephalexin in the past, 11/19/18) Pt has received Omnicef & cephalexin in the past (from External med history) sulfacetamide (Verified Allergy, Unknown, 11/18/18) trazodone (Verified Allergy, Unknown, 11/18/18) Vitals & I&Os Vital Signs Date Time Temp Pulse Resp B/P (MAP) Pulse Ox O2 Delivery O2 Flow Rate FiO2 02/05/22 08:00 92 High Flow N/C 6.00 02/05/22 07:45 36.2 81 20 121/58 02/05/22 07:15 60 General Appearance: No Apparent Distress, Chronically ill Respiratory: Lungs Clear, No Accessory Muscle Use Cardiovascular: Regular Rate, Rhythm, No Murmur Neurologic/Psychiatric: Alert, Oriented x3 Hospital Course Patient was admitted to the hospital secondary to acute on chronic hypercapnic respiratory failure after removing home BiPAP. She had been on hospice until the day of admission but revoked to seek evaluation in the emergency department. She was admitted on BiPAP due to hypercapnia and improved. After discussion with palliative care nurse she has elected to return home with hospice care she does not wish to be in the hospital further, palliative care RN spoke with [facility] yesterday and they are prepared to reenroll patient in hospice and equipment is already in home. Labs (last 24 hrs) Laboratory Tests 02/04/22 11:22: Glucometer 289H 02/04/22 15:38: Glucometer 272H 02/04/22 20:15: Glucometer 290H 02/05/22 05:06: White Blood Count 6.4, Red Blood Count 3.62L, Hemoglobin 9.1L, Hematocrit 32L, Mean Corpuscular Volume 88, Mean Corpuscular Hemoglobin 25, Mean Corpuscular Hemoglobin Concent 28L, Red Cell Distribution Width 16.8H, Platelet Count 199, Mean Platelet Volume 10.1, Immature Granulocyte % (Auto) 0, Neutrophils (%) (Auto) 96H, Lymphocytes (%) (Auto) 3L, Monocytes (%) (Auto) 1, Eosinophils (%) (Auto) 0, Basophils (%) (Auto) 0, Neutrophils # (Auto) 6.1, Lymphocytes # (Auto) 0.2L, Monocytes # (Auto) 0.1, Eosinophils # (Auto) 0.0, Basophils # (Auto) 0.0, Immature Granulocyte # (Auto) 0.0, Sodium Level 137, Potassium Level 3.1L, Chloride Level 87L, Carbon Dioxide Level 37H, Anion Gap 13, Blood Urea Nitrogen 12, Creatinine 0.79, Estimat Glomerular Filtration Rate 81, BUN/Creatinine Ratio 15, Glucose Level 329H, Calcium Level 9.3, Corrected Calcium 9.6, Phosphorus Level 2.8, Magnesium Level 2.0, Total Bilirubin 0.7, Aspartate Amino Transf (AST/SGOT) 12, Alanine Aminotransferase (ALT/SGPT) 10, Alkaline Phosphatase 64, Total Protein 7.6, Albumin 3.6 Microbiology 02/04/22 MRSA Screen - Final, Complete MRSA not isolated Patient resulted labs reviewed. Pending Labs Laboratory Tests 02/05/22 05:06: White Blood Count 6.4, Red Blood Count 3.62, Hemoglobin 9.1, Hematocrit 32, Mean Corpuscular Volume 88, Mean Corpuscular Hemoglobin 25, Mean Corpuscular Hemoglobin Concent 28, Red Cell Distribution Width 16.8, Platelet Count 199, Mean Platelet Volume 10.1, Immature Granulocyte % (Auto) 0, Neutrophils (%) (Auto) 96, Lymphocytes (%) (Auto) 3, Monocytes (%) (Auto) 1, Eosinophils (%) (Auto) 0, Basophils (%) (Auto) 0, Neutrophils # (Auto) 6.1, Lymphocytes # (Auto) 0.2, Monocytes # (Auto) 0.1, Eosinophils # (Auto) 0.0, Basophils # (Auto) 0.0, Immature Granulocyte # (Auto) 0.0, Sodium Level 137, Potassium Level 3.1, Chloride Level 87, Carbon Dioxide Level 37, Anion Gap 13, Blood Urea Nitrogen 12, Creatinine 0.79, Estimat Glomerular Filtration Rate 81, BUN/Creatinine Ratio 15, Glucose Level 329, Calcium Level 9.3, Corrected Calcium 9.6, Phosphorus Level 2.8, Magnesium Level 2.0, Total Bilirubin 0.7, Aspartate Amino Transf (AST/SGOT) 12, Alanine Aminotransferase (ALT/SGPT) 10, Alkaline Phosphatase 64, Total Protein 7.6, Albumin 3.6 Discussion & Recommendations Discharge Planning: >30 minutes discharge planning Discharge Home Medications: Active Scripts Active Prednisone 10 Mg Tab.ds.pk 10 Mg PO DAILY Take 6 tabs(60mg)daily,decrease by 1 tab(10MG)daily. Reported Nystatin 100,000 Unit/Gram Cream..g. 1 Applic TP TID PRN Hyoscyamine Sulfate 0.125 Mg Tab.rapdis 0.125 Mg SL Q4H PRN COMFORT KIT ONLY Morphine Conc. 20mg/ml (Morphine Sulfate) 100 Mg/5 Ml (20 Mg/Ml) Solution 0.25-1 Ml SL Q4H PRN COMFORT KIT ONLY Ativan (Lorazepam) 0.5 Mg Tablet 0.5 Mg PO HS PRN Iprat-Albut 0.5-3(2.5) mg/3 ml (Ipratropium/Albuterol Sulfate) 0.5 Mg-3 Mg (2.5 Mg Base)/3 Ml Ampul.neb 3 Ml NEB Q6H PRN Hydrocodone-Acetamin 5-325 mg (Hydrocodone/Acetaminophen) 5 Mg-325 Mg Tablet 1-2 Ea PO Q4H PRN Flonase Allergy Relief (Fluticasone Propionate) 50 Mcg/Actuation [place].susp 1-2 [place] NSEACH DAILY PRN 1 SPRAY EACH NARE DAILY Acetaminophen 500 Mg Tablet 500-1,000 Mg PO Q4H PRN Bisacodyl 10 Mg Supp.rect 10 Mg RC UD PRN COMFORT KIT ONLY Quetiapine Fumarate 50 Mg Tablet 50-100 Mg PO Q6H PRN COMFORT KIT ONLY Ondansetron Odt (Ondansetron) 4 Mg Tab.rapdis 4 Mg SL Q4H PRN COMFORT KIT ONLY Acetaminophen 650 Mg Supp.rect 650 Mg RC Q4H PRN COMFORT KIT ONLY Novolog Flexpen (Insulin Aspart) 300 Units/3 Ml Solution 4 Units SQ AC Levemir Flextouch (Insulin Detemir) 100 Unit/1 Ml Insuln.pen 8 Unit SQ BID [place] (Sodium Chloride) 44 Ml [place] 1 [place] NSEACH QID PRN Acetazolamide 250 Mg Tablet 250 Mg PO BID Aripiprazole 20 Mg Tablet 20 Mg PO DAILY Jennifer Allergy (Fexofenadine HCl) 180 Mg Tablet 180 Mg PO DAILY Olopatadine HCl 2.5 Ml Drops 1 Drop OU HS Lidocaine 5% Patch (Lidocaine) 1 Each Adh..patch 1 Pat TD DAILY APPLY TO LEFT SHOULDER- REMOVE AFTER 12 HOURS Isosorbide Mononitrate ER (Isosorbide Mononitrate) 60 Mg Tab 60 Mg PO DAILY Pantoprazole Sodium 20 Mg Tablet.dr 20 Mg PO DAILY Furosemide 40 Mg Tablet 40 Mg PO DAILY K-Tab ER (Potassium Chloride) 10 Meq Tablet.er 20 Meq PO BID TAKES 2 (10 MEQ) TABLETS Eliquis (Apixaban) 5 Mg Tablet 5 Mg PO BID Ventolin Hfa (Albuterol Sulfate) 18 Gm Hfa.aer.ad 2 Puff INH QID PRN Levothyroxine Sodium 25 Mcg Tablet 25 Mcg PO DAILY Zafirlukast 20 Mg Tablet 20 Mg PO BID Lamotrigine 25 Mg Tablet 25 Mg PO BID Instructions to patient/family Please see electronic discharge instructions given to patient. REBECCA FERNANDEZ MD February 05, 2022 09:07
[2022-02-05 12:20] VITALS: BP 137/60
== END 2022-02-05 12:20 | disposition hospice, home (50) | DRG 189 ==
LOC: EDUNIT# 00:35 → ER 00:36 → ICU 01:00 → 4TH 15:18
PROVIDERS: ADMIT Internal Medicine; ATTEND Internal Medicine
PROC: 5A09357 Assistance with Respiratory Ventilation, Less than 24 Consecutive Hours, Continuous Positive Airway Pressure (ICD-10-PCS; principal; 2022-02-04)
PROC: 5A0935A Assistance with Respiratory Ventilation, Less than 24 Consecutive Hours, High Flow/Velocity Cannula (ICD-10-PCS; 2022-02-05)
DX: J96.21 Acute and chronic respiratory failure with hypoxia (principal); I50.32 Chronic diastolic (congestive) heart failure; I48.20 Chronic atrial fibrillation, unspecified; G47.39 Other sleep apnea; E78.00 Pure hypercholesterolemia, unspecified; I11.0 Hypertensive heart disease with heart failure; F03.90 Unspecified dementia, unspecified severity, without behavioral disturbance, psychotic disturbance, mood disturbance, and anxiety; K21.9 Gastro-esophageal reflux disease without esophagitis; J44.9 Chronic obstructive pulmonary disease, unspecified; M19.90 Unspecified osteoarthritis, unspecified site; G89.29 Other chronic pain; J96.22 Acute and chronic respiratory failure with hypercapnia; Z66 Do not resuscitate; E11.65 Type 2 diabetes mellitus with hyperglycemia; E03.9 Hypothyroidism, unspecified; D64.9 Anemia, unspecified; M54.9 Dorsalgia, unspecified; E66.01 Morbid (severe) obesity due to excess calories; F41.9 Anxiety disorder, unspecified; F31.9 Bipolar disorder, unspecified; K57.90 Diverticulosis of intestine, part unspecified, without perforation or abscess without bleeding; Z87.891 Personal history of nicotine dependence; Z79.4 Long term (current) use of insulin; Z79.899 Other long term (current) drug therapy; Z91.19 Patient's noncompliance with other medical treatment and regimen; Z51.5 Encounter for palliative care
CPT/HCPCS: 36415; 51701; 71045; 80053; 81000; 82805; 82947; 83735; 83880; 84100; 85007; 85025; 85027; 86141; 87081; 94640; 94660; 94760; 99291